=== PATIENT | female | born 1930 | race Caucasian/White ===

== ENCOUNTER → 2017-07-30 | Outpatient (CLI) | payer MEDICARE, BC ==
--- NOTE | 2017-07-30 13:03 | FL ---
EXAMINATION TYPE: FL barium swallow DATE OF EXAM: 07/30/2017 CLINICAL HISTORY: Dysphagia TECHNIQUE: A double contrast esophagram is performed utilizing air and barium. A total of 1.1 minut es of fluoroscopy time utilized with 77 images saved. COMPARISON: None FINDINGS: The esophagus shows normal motility and emptying into the stomach on the upright images and slightly delayed propulsion on supine imaging with tertiary contractions. Focal outpouching is noted at the level of approximately C5-C6 relating to a Zenker's diverticulum. Multilevel anterior osteoph ytes impress upon the posterior esophagus most pronounced at C5-C6 and C6-C7. No evidence of hiatal h ernia or stricture noted. No significant gastroesophageal reflux was seen during real time performanc e of this study. IMPRESSION: 1. Findings of a small Zenker's diverticulum. 2. Multilevel anterior osteophytes most pronounced at C5-C6 and C6-C7 mildly impressing upon the post erior esophagus. 3. Findings suggestive of presbyesophagus.
== END | disposition home or self-care (01) ==
LOC: RADFLWHC 10:40
PROVIDERS: ATTEND Family Medicine
DX: R13.12 Dysphagia, oropharyngeal phase (principal)
CPT/HCPCS: 74220

== ENCOUNTER 2018-06-18 10:22 | Emergency (ER) | payer MEDICARE, BC ==
[2018-06-18] MEDS ORDERED: HYDROcodone/APAP 5-325MG 1 EACH TAB PO STA (10:51)
[2018-06-18] MEDS ORDERED: ORPHENADRINE 30 MG/ML 2 ML VIAL IM STA (10:51)
--- NOTE | 2018-06-18 11:01 | ED ---
Extremity Problem HPI - General Chief complaint: Extremity Problem,Nontraumatic Stated complaint: Leg pain Time Seen by Provider: 06/18/18 10:31 Source: patient, RN notes reviewed, old records reviewed Mode of arrival: wheelchair Limitations: no limitations - History of Present Illness Initial comments: Patient is a pleasant 87-year-old female presents emergency Department stay with chief complaint of right-sided hip and buttock muscle pain. She reports it 's been progressive over the past 2 months. She did have an MRI from her orthopedic Dr. Archer. She states that they told her that her muscle was deteriorated. She believes is likely related to her medications, atorvastatin labetalol. Warts that she was having increased pain and having a difficult time sleeping. She denies any urinary symptoms. She denies any falls or trauma to the area. - Related Data Home Medications Medication Instructions Recorded Confirmed Cholecalciferol [Vitamin D3] 2,000 unit PO DAILY 09/24/15 06/18/18 Linagliptin [Tradjenta] 5 mg PO DAILY 06/18/18 06/18/18 Ranitidine HCl [Zantac] 150 mg PO BID 06/18/18 06/18/18 Rivaroxaban [Xarelto] 15 mg PO DAILY 06/18/18 06/18/18 Simvastatin [Zocor] 20 mg PO HS 06/18/18 06/18/18 amLODIPine [Norvasc] 5 mg PO DAILY 06/18/18 06/18/18 Previous Rx's Medication Instructions Recorded Labetalol [Trandate] 100 mg PO BID #60 tablet 05/27/16 Lisinopril [Zestril] 5 mg PO DAILY tab 05/27/16 Acetaminophen-Codeine 300-30mg 1 tab PO Q6H PRN 3 Days #12 tablet 06/18/18 [Tylenol w/codeine #3] Ibuprofen 400 mg PO TID #15 tablet 06/18/18 Allergies Allergy/AdvReac Type Severity Reaction Status Date / Time No Known Allergies Allergy Verified 06/18/18 11:11 Review of Systems ROS Statement: Those systems with pertinent positive or pertinent negative responses have been documented in the HPI. ROS Other: All systems not noted in ROS Statement are negative. Past Medical History Past Medical History: Coronary Artery Disease (CAD), Diabetes Mellitus, Hyperlipidemia, Hypertension, Myocardial Infarction ([place]) Additional Past Medical History / Comment(s): BROKEN LEFT ANKLE Last Myocardial Infarction Date:: 1995 History of Any Multi-Drug Resistant Organisms: None Reported Past Surgical History: Coronary Bypass/CABG Additional Past Surgical History / Comment(s): CABG 1995, carotid stenosis and surgery in February 2016 Past Anesthesia/Blood Transfusion Reactions: No Reported Reaction Past Psychological History: No Psychological Hx Reported Smoking Status: Former smoker Past Alcohol Use History: None Reported Past Drug Use History: None Reported - Past Family History Son(s) Family Medical History: Cancer Additional Family Medical History / Comment(s): Throat cancer General Exam - General Exam Comments Initial Comments: This is a pleasant 87-year-old female. No significant distress. Limitations: no limitations General appearance: alert, in no apparent distress Head exam: Present: atraumatic, normocephalic, normal inspection Eye exam: Present: normal appearance, PERRL, EOMI. Absent: scleral icterus, conjunctival injection, periorbital swelling ENT exam: Present: normal exam, mucous membranes moist Neck exam: Present: normal inspection. Absent: tenderness, meningismus, lymphadenopathy Respiratory exam: Present: normal lung sounds bilaterally. Absent: respiratory distress, wheezes, rales, rhonchi, stridor Cardiovascular Exam: Present: regular rate, normal rhythm, normal heart sounds. Absent: systolic murmur, diastolic murmur, rubs, gallop, clicks GI/Abdominal exam: Present: soft, normal bowel sounds. Absent: distended, tenderness, guarding, rebound, rigid Extremities exam: Present: normal inspection, full ROM, normal capillary refill. Absent: tenderness, pedal edema, joint swelling, calf tenderness Right Hip exam: Present: normal inspection, full ROM, tenderness (Her right gluteus faiza.). Absent: swelling, abrasion, erythema, external rotation, internal rotation Upper Leg exam: Present: normal inspection, full ROM (Ramos has tenderness over the gluteus faiza.) Knee exam: Present: normal inspection, full ROM Lower Leg exam: Present: normal inspection, full ROM Gait: observed and normal Back exam: Present: normal inspection, full ROM Neurological exam: Present: alert, oriented X3, CN II-XII intact Psychiatric exam: Present: normal affect, normal mood Course Vital Signs 06/18/18 10:28 Temperature 98.4 F Pulse Rate 84 Respiratory 20 Rate Blood Pressure 143/62 O2 Sat by Pulse 99 Oximetry Medical Decision Making - Medical Decision Making This is an 87-year-old female presents emergency Department chief complaint of increased pain over her right hip and buttocks. Is a full range of motion of her extremities. Patient's pain is exacerbated with palpation over the gluteus faiza. She denies any peripheral paresthesias salient aesthesias. Patient's main complaint is having difficult time with the pain due to sleeping. She does not take any pain medications at this time. We did complete an x-ray today which is bilateral hip posterior arthritis. I will give the Patient a course of a temperature medication and short course of pain medication. I did discuss she should have some follow-up with her surveillance specialist. Patient agrees treatment plan will comply. Return parameters were discussed. - Radiology Data Radiology results: report reviewed Bilateral hip posterior arthritis. No acute osseous [place] noted. Disposition Clinical Impression: Strain of right hip, Muscle ache Disposition: HOME SELF-CARE Condition: Good Instructions: Hip Sprain (ED) Additional Instructions: Patient advised to follow-up with primary care physician and surveillance specialist. Take a temperature medication and to give the medicine as needed at night for sleep. Patient should return to the emergency department if any alarming signs or symptoms occur. Prescriptions: Acetaminophen-Codeine 300-30mg [Tylenol w/codeine #3] 1 tab PO Q6H PRN 3 Days # 12 tablet PRN Reason: Pain Ibuprofen 400 mg PO TID #15 tablet Is patient prescribed a controlled substance at d/c from ED?: Yes If prescribed controlled substance>3 days was MAPS reviewed?: Prescribed <3 Days Referrals: Jason Ross DO [Primary Care Provider] - 1-2 days Time of Disposition: 11:48
--- NOTE | 2018-06-18 11:31 | XR ---
EXAMINATION TYPE: AP view pelvis and 2 views right hip DATE OF EXAM: 06/18/2018 COMPARISON: NONE HISTORY: 87 year-old female right leg pain for 2 days FINDINGS: Vascular calcifications. Mild degenerative joint space narrowing and marginal spurring at both hips. Osteopenia. No acute fracture, subluxation, or dislocation. IMPRESSION: Mild bilateral hip OA. No acute osseous abnormality seen.
[2018-06-18 12:18] VITALS: BP 156/70; PULSE 85; RESP 18; TEMP 97.6
== END 2018-06-18 12:18 | disposition home or self-care (01) ==
LOC: EC 10:22
DX: S76.011A Strain of muscle, fascia and tendon of right hip, initial encounter (principal); M16.0 Bilateral primary osteoarthritis of hip; M79.606 Pain in leg, unspecified; I25.10 Atherosclerotic heart disease of native coronary artery without angina pectoris; I25.2 Old myocardial infarction; E78.5 Hyperlipidemia, unspecified; E11.9 Type 2 diabetes mellitus without complications; I10 Essential (primary) hypertension; Z87.891 Personal history of nicotine dependence; Z79.01 Long term (current) use of anticoagulants; Z79.899 Other long term (current) drug therapy; Z98.61 Coronary angioplasty status
CPT/HCPCS: 73502; 99284; 96372; J2360

== ENCOUNTER 2018-06-24 10:52 | Inpatient (IN) | payer MEDICARE, BC ==
--- NOTE | 2018-06-24 11:00 | ED ---
GI Bleed HPI - General Chief complaint: GI Bleed Stated complaint: rectal bleeding, weakness Time Seen by Provider: 06/24/18 10:58 Source: patient, RN notes reviewed, old records reviewed Mode of arrival: wheelchair Limitations: no limitations - History of Present Illness Initial comments: This is an 87 female to the ED co blood in her stool, GIB, bloody streaks in her stool. Patient does admit to using. Accident. She feels weak lightheaded dizzy but no episodes of syncope. She does admit to blood in her stool. Not gross blood but blood mixed with stool. She has no prior history of colonoscopy , no prior history of GI bleed MD complaint: blood on toilet paper, blood streaked stool -: days(s) (1) Radiation: none Severity scale (1-10): 3 Improves with: bowel movement Worsens with: none Context: history of GI bleed, blood thinners Associated Symptoms: weakness Treatments Prior to Arrival: none - Related Data Home Medications Medication Instructions Recorded Confirmed Cholecalciferol [Vitamin D3] 2,000 unit PO DAILY 09/24/15 06/24/18 Linagliptin [Tradjenta] 5 mg PO DAILY 06/18/18 06/24/18 Ranitidine HCl [Zantac] 150 mg PO BID 06/18/18 06/24/18 Rivaroxaban [Xarelto] 15 mg PO DAILY 06/18/18 06/24/18 Simvastatin [Zocor] 20 mg PO HS 06/18/18 06/24/18 amLODIPine [Norvasc] 5 mg PO DAILY 06/18/18 06/24/18 traMADol HCL [Ultram] 50 mg PO Q6HR PRN 06/24/18 06/24/18 Previous Rx's Medication Instructions Recorded Labetalol [Trandate] 100 mg PO BID #60 tablet 05/27/16 Lisinopril [Zestril] 5 mg PO DAILY tab 05/27/16 Acetaminophen-Codeine 300-30mg 1 tab PO Q6H PRN 3 Days #12 tablet 06/18/18 [Tylenol w/codeine #3] Ibuprofen 400 mg PO TID #15 tablet 06/18/18 Allergies Allergy/AdvReac Type Severity Reaction Status Date / Time zolpidem [From Ambien] AdvReac Hallucinati Verified 06/24/18 12:38 ons Review of Systems ROS Statement: Those systems with pertinent positive or pertinent negative responses have been documented in the HPI. ROS Other: All systems not noted in ROS Statement are negative. Past Medical History Past Medical History: Coronary Artery Disease (CAD), Diabetes Mellitus, Hyperlipidemia, Hypertension, Myocardial Infarction ([place]) Additional Past Medical History / Comment(s): BROKEN LEFT ANKLE Last Myocardial Infarction Date:: 1995 History of Any Multi-Drug Resistant Organisms: None Reported Past Surgical History: Coronary Bypass/CABG Additional Past Surgical History / Comment(s): CABG 1995, carotid stenosis and surgery in February 2016 Past Anesthesia/Blood Transfusion Reactions: No Reported Reaction Past Psychological History: No Psychological Hx Reported Smoking Status: Former smoker Past Alcohol Use History: None Reported Past Drug Use History: None Reported - Past Family History Son(s) Family Medical History: Cancer Additional Family Medical History / Comment(s): Throat cancer General Exam Limitations: no limitations General appearance: alert, in no apparent distress Head exam: Present: atraumatic, normocephalic, normal inspection Eye exam: Present: normal appearance, PERRL, EOMI. Absent: scleral icterus, conjunctival injection, periorbital swelling ENT exam: Present: normal exam, mucous membranes moist Neck exam: Present: normal inspection. Absent: tenderness, meningismus, lymphadenopathy Respiratory exam: Present: normal lung sounds bilaterally. Absent: respiratory distress, wheezes, rales, rhonchi, stridor Cardiovascular Exam: Present: regular rate, normal rhythm, normal heart sounds. Absent: systolic murmur, diastolic murmur, rubs, gallop, clicks GI/Abdominal exam: Present: soft, normal bowel sounds. Absent: distended, tenderness, guarding, rebound, rigid Extremities exam: Present: normal inspection, full ROM, normal capillary refill. Absent: tenderness, pedal edema, joint swelling, calf tenderness Back exam: Present: normal inspection Neurological exam: Present: alert, oriented X3, CN II-XII intact Psychiatric exam: Present: normal affect, normal mood Skin exam: Present: warm, dry, intact, normal color. Absent: rash Course Vital Signs 06/24/18 06/24/18 06/24/18 10:54 12:45 13:17 Temperature 98.5 F Pulse Rate 71 65 67 Respiratory 18 18 18 Rate Blood Pressure 107/41 167/73 187/72 O2 Sat by Pulse 99 96 97 Oximetry - Reevaluation(s) Reevaluation #1: 06/24/18 13:23 patient is without bloody stool in the ED at this point patient is on xarelto, will not reverse xarelto at this point at there is noremal vital signs and no active current bloody bowel movements. Reevaluation #2: 06/24/18 13:26 patient is without pain of weakness, no feelings of near syncope Medical Decision Making - Medical Decision Making 87 female to the ED co weaknesss, active GIB on anticoagulation. - Lab Data Result diagrams: 06/24/18 11:11 06/24/18 11:11 Lab Results 06/24/18 06/24/18 06/24/18 Range/Units 11:11 11:11 11:11 WBC 7.6 (3.8-10.6) k/uL RBC 3.29 L (3.80-5.40) m/uL Hgb 8.9 L (11.4-16.0) gm/dL Hct 28.8 L (34.0-46.0) % MCV 87.4 (80.0-100.0) fL MCH 27.1 (25.0-35.0) pg MCHC 31.0 (31.0-37.0) g/dL RDW 15.9 H (11.5-15.5) % Plt Count 266 (150-450) k/uL Neutrophils % 81 % Lymphocytes % 9 % Monocytes % 5 % Eosinophils % 3 % Basophils % 1 % Neutrophils # 6.2 (1.3-7.7) k/uL Lymphocytes # 0.7 L (1.0-4.8) k/uL Monocytes # 0.4 (0-1.0) k/uL Eosinophils # 0.2 (0-0.7) k/uL Basophils # 0.0 (0-0.2) k/uL Hypochromasia Moderate PT (9.0-12.0) sec INR (<1.2) APTT (22.0-30.0) sec Sodium 138 (137-145) mmol/L Potassium 5.4 H (3.5-5.1) mmol/L Chloride 105 (98-107) mmol/L Carbon Dioxide 23 (22-30) mmol/L Anion Gap 10 mmol/L BUN 43 H (7-17) mg/dL Creatinine 1.59 H (0.52-1.04) mg/dL Est GFR (CKD-EPI)AfAm 34 (>60 ml/min/1.73 sqM) Est GFR (CKD-EPI)NonAf 29 (>60 ml/min/1.73 sqM) Glucose 160 H (74-99) mg/dL Calcium 8.8 (8.4-10.2) mg/dL Magnesium 2.2 (1.6-2.3) mg/dL Total Bilirubin 0.6 (0.2-1.3) mg/dL AST 21 (14-36) U/L ALT 20 (9-52) U/L Alkaline Phosphatase 27 L (38-126) U/L Total Creatine Kinase 71 (30-135) U/L CK-MB (CK-2) 1.0 (0.0-2.4) ng/mL CK-MB (CK-2) Rel Index 1.4 Troponin I <0.012 (0.000-0.034) ng/mL Total Protein 5.8 L (6.3-8.2) g/dL Albumin 3.4 L (3.5-5.0) g/dL 06/24/18 Range/Units 11:11 WBC (3.8-10.6) k/uL RBC (3.80-5.40) m/uL Hgb (11.4-16.0) gm/dL Hct (34.0-46.0) % MCV (80.0-100.0) fL MCH (25.0-35.0) pg MCHC (31.0-37.0) g/dL RDW (11.5-15.5) % Plt Count (150-450) k/uL Neutrophils % % Lymphocytes % % Monocytes % % Eosinophils % % Basophils % % Neutrophils # (1.3-7.7) k/uL Lymphocytes # (1.0-4.8) k/uL Monocytes # (0-1.0) k/uL Eosinophils # (0-0.7) k/uL Basophils # (0-0.2) k/uL Hypochromasia PT 12.8 H (9.0-12.0) sec INR 1.4 H (<1.2) APTT 27.1 (22.0-30.0) sec Sodium (137-145) mmol/L Potassium (3.5-5.1) mmol/L Chloride (98-107) mmol/L Carbon Dioxide (22-30) mmol/L Anion Gap mmol/L BUN (7-17) mg/dL Creatinine (0.52-1.04) mg/dL Est GFR (CKD-EPI)AfAm (>60 ml/min/1.73 sqM) Est GFR (CKD-EPI)NonAf (>60 ml/min/1.73 sqM) Glucose (74-99) mg/dL Calcium (8.4-10.2) mg/dL Magnesium (1.6-2.3) mg/dL Total Bilirubin (0.2-1.3) mg/dL AST (14-36) U/L ALT (9-52) U/L Alkaline Phosphatase (38-126) U/L Total Creatine Kinase (30-135) U/L CK-MB (CK-2) (0.0-2.4) ng/mL CK-MB (CK-2) Rel Index Troponin I (0.000-0.034) ng/mL Total Protein (6.3-8.2) g/dL Albumin (3.5-5.0) g/dL - EKG Data -: EKG Interpreted by Me (EKG shows normal sinus rhythm rate of 69, CO 160, QRS 90, QTc 424) EKG shows normal: sinus rhythm Rate: normal Critical Care Time Critical Care Time: Yes Total Critical Care Time: 31 Disposition Clinical Impression: Gastrointestinal hemorrhage, Coagulopathy, Anemia Disposition: ADMITTED IP TO THIS [facility] Condition: Fair Instructions: Gastrointestinal Bleeding (ED) Is patient prescribed a controlled substance at d/c from ED?: No Referrals: Jason Ross DO [Primary Care Provider] - 1-2 days
[2018-06-24] MEDS ORDERED: SODIUM CHLORIDE 0.9% 500 ML IV STA (12:00)
[2018-06-24] MEDS ORDERED: PANTOPRAZOLE 40 MG/10 ML VIAL IVP STA (12:00)
[2018-06-24] MEDS ORDERED: SODIUM CHLORIDE 0.9% 1,000 ML IV STA (12:00)
[2018-06-24 12:45] LABS: Basophils % (A) 1 %; Eosinophils # (A) 0.2 k/uL (0-0.7); Eosinophils % (A) 3 %; HCT 28.8 % (34.0-46.0); HGB 8.9 gm/dL (11.4-16.0); Hypochromasia Moderate; Lymphocytes # (A) 0.7 k/uL (1.0-4.8); Lymphocytes % (A) 9 %; MCH 27.1 pg (25.0-35.0); MCV 87.4 fL (80.0-100.0); Mean Platelet Volume 7.8; Monocytes # (A) 0.4 k/uL (0-1.0); Monocytes % (A) 5 %; Neutrophils # (A) 6.2 k/uL (1.3-7.7); Neutrophils % (A) 81 %; Platelet Count 266 k/uL (150-450); RBC 3.29 m/uL (3.80-5.40); RDW 15.9 % (11.5-15.5); WBC 7.6 k/uL (3.8-10.6)
[2018-06-24 12:48] LABS: Albumin 3.4 g/dL (3.5-5.0); Calcium 8.8 mg/dL (8.4-10.2); Magnesium 2.2 mg/dL (1.6-2.3); Potassium 5.4 mmol/L (3.5-5.1); Total Bilirubin 0.6 mg/dL (0.2-1.3); Total Protein 5.8 g/dL (6.3-8.2)
[2018-06-24 12:50] LABS: INR 1.4 (<1.2); Partial Thromboplastin Time 27.1 sec (22.0-30.0); Prothrombin Time 12.8 sec (9.0-12.0)
[2018-06-24 13:00] LABS: Creatine Kinase 71 U/L (30-135)
[2018-06-24 13:12] LABS: Troponin I <0.012 ng/mL (0.000-0.034)
[2018-06-24] MEDS ORDERED: traMADol 50 MG TAB PO PRN (16:52)
[2018-06-24] MEDS ORDERED: Acetaminophen-Codeine 300-30mg TAB PO PRN (16:52)
[2018-06-24] MEDS: amLODIPine 5 MG TAB PO SCH (18:00)
[2018-06-24] MEDS: LISINOPRIL 5 MG TAB PO SCH (18:00)
[2018-06-24] MEDS: LABETALOL 100 MG TAB PO SCH (21:10)
[2018-06-24] MEDS: ATORVASTATIN 10 MG TAB PO SCH (21:10)
--- NOTE | 2018-06-24 22:27 | HP ---
HISTORY AND PHYSICAL DATE OF ADMISSION: 06/24/2018 DATE OF SERVICE: 06/24/2018 PRESENTING COMPLAINT: Lower GI bleed. HISTORY OF PRESENTING COMPLAINT: This is a very pleasant 87-year-old patient who follows with Dr. Ross. Patient's pump attendant is Dr. Colin. Chronic stable medical conditions include hypertension, hyperlipidemia, diabetes, coronary artery disease with bypass. In 2016 patient did undergo right carotid endarterectomy by Dr. Fagan and did have postoperative atrial fibrillation, for which patient apparently has been on Xarelto for the same. Three days ago patient was feeling severely constipated, had not had a bowel movement for 2 days, had to bend over and had to put pressure to have a bowel movement. Subsequently patient had a large bleeding episode. Since then she had 2 more episodes the next night, and this morning had quite a bit of blood in the mace. She did feel dizzy, lightheaded, and her daughter decided to bring the patient in. No abdominal pain. Initially patient had some pain in the rectal area, she thinks, but not anymore. Patient continues to take Xarelto, which has been held today. The patient does feel a bit tired. Normally she does not have any history of hemorrhoids. REVIEW OF SYSTEMS: CONSTITUTIONAL: Tired. HEENT: None. RESPIRATORY: None. CARDIOVASCULAR: None. GASTROINTESTINAL: As above. GENITOURINARY: None. MUSCULOSKELETAL: None. DERMATOLOGICAL: None. HEMATOLOGICAL: None. LYMPHATICS: None. PSYCHIATRY: None. NEUROLOGICAL: None. PAST MEDICAL HISTORY: 1. Coronary artery disease with bypass. 2. Diabetes, type 2. 3. Hyperlipidemia. 4. Hypertension. 5. Bilateral cataracts. PAST SURGICAL HISTORY: 1. Adenoidectomy. 2. Coronary artery bypass. 3. Tonsillectomy. 4. Three-vessel bypass in . 5. Right carotid endarterectomy. 6. ORIF of the left ankle due to fracture. SOCIAL HISTORY: Lives by herself. Smoked for 66 years; stopped in 2015. No excessive alcohol intake. FAMILY HISTORY: Throat cancer. HOME MEDICATIONS: 1. Ultram 50 mg q.6 p.r.n. 2. Norvasc 5 mg p.o. daily. 3. Zocor 20 mg at bedtime. 4. Xarelto 50 mg p.o. daily. 5. Zantac 150 mg p.o. b.i.d. 6. Zestril 5 mg p.o. daily. 7. Tradjenta 5 mg p.o. daily. 8. Labetalol 100 mg b.i.d. 9. Ibuprofen 400 mg t.i.d. 10.Vitamin D3 2000 units p.o. daily. 11.Tylenol No. 3 one tablet p.o. q.6 p.r.n. ALLERGIES: AMBIEN. PHYSICAL EXAMINATION: VITAL SIGNS ON PRESENTATION: Temperature 98.5, pulse 71, respiration 18, blood pressure 107/41, pulse ox 99% on room air. GENERAL APPEARANCE: Average build. Lying in bed, tired-appearing. EYES: Pupils equal. Conjunctivae pale. HEENT: External appearance of nose and ears normal. Oral cavity normal. NECK: JVD not raised. Mass not palpable. RESPIRATORY: Effort normal. Lungs are clear. CARDIOVASCULAR: First and second sounds normal. No edema. ABDOMEN: Soft, non-tender. Liver and spleen not palpable. LYMPHATIC: No lymph node palpable in neck or axillae. PSYCHIATRY: Alert and oriented x3. Mood and affect normal. NEUROLOGICAL: Pupils equal. Cranial nerves grossly intact. Power and sensation grossly intact. INVESTIGATIONS: White count 7.6, hemoglobin 8.9, potassium 5.4, BUN 43, creatinine 1.59. Patient's creatinine was 0.99 back on 05/26/2016. ASSESSMENT: 1. Acute lower gastrointestinal bleed. Fresh blood noted in a patient who has tried to bear down following constipation. This well could be hemorrhoidal bleeding. At the same time, patient is on Motrin 400 mg 3 times a day, including Xarelto, and patient well may have had a large upper GI bleed combined with the fact that patient got dizzy and lightheaded. 2. Essential hypertension. 3. Hyperlipidemia. 4. Diabetes mellitus, type 2, on oral hypoglycemic. 5. Coronary artery disease with history of coronary artery bypass. 6. Paroxysmal atrial fibrillation, currently in sinus rhythm. PLAN: Xarelto has been held. Patient has had no more episodes of bleeding. GI was consulted with a view to endoscopy. Care was discussed with the patient and her daughter at the bedside. Keep an eye on hemoglobin and hematocrit. Will also get a cardiology opinion. MMODL / IJN: [id number] /
[2018-06-25 08:03] LABS: Basophils % (A) 1 %; Eosinophils # (A) 0.2 k/uL (0-0.7); Eosinophils % (A) 4 %; Hypochromasia Moderate; Lymphocytes % (A) 19 %; MCHC 30.9 g/dL (31.0-37.0); MCV 87.5 fL (80.0-100.0); Mean Platelet Volume 7.9; Monocytes # (A) 0.4 k/uL (0-1.0); Monocytes % (A) 8 %; Neutrophils # (A) 3.6 k/uL (1.3-7.7); Neutrophils % (A) 66 %; Platelet Count 248 k/uL (150-450); RBC 2.97 m/uL (3.80-5.40); WBC 5.5 k/uL (3.8-10.6)
[2018-06-25] MEDS: LABETALOL 100 MG TAB PO SCH ×2 (08:20→20:25)
[2018-06-25] MEDS: amLODIPine 5 MG TAB PO SCH (08:20)
[2018-06-25] MEDS: LISINOPRIL 5 MG TAB PO SCH (08:21)
[2018-06-25] MEDS ORDERED: LISINOPRIL 5 MG TAB PO SCH (09:00)
[2018-06-25] MEDS ORDERED: amLODIPine 5 MG TAB PO SCH (09:00)
--- NOTE | 2018-06-25 11:41 | P.CONS ---
History of Present Illness - Reason for Consult Consult date: 06/25/18 anemia GI bleed Requesting physician: Carloz Chavez - Chief Complaint rectal bleeding - History of Present Illness 87 y/o PMH PAF maintained on Xarelto. CABG, HTN, DM, CKD, hepatic steatosis, RCEA, cholecystectomy, and hyperlipidemia. Presents with reports of painless rectal bleeding maroon red colored BMs that started Friday. She has passed several stools since Friday last bloody BM was yesterday. No history of GI bleed or PUD. No history of EGD/colonoscopy. Admission HGB 8.9 presently 8.0 MCV 87. [place] 266. INR 1.4. BUN 43. Creatinine 1.5. LFTs WNL. Previous HGB in 2016 was 13.3. Last dose of Xarelto was 06/23/18. Denies F/C. Denies weight loss, hematemesis or melena. Home meds include Ibuprofen [address] abdomen 2016 did not mention colonic diverticulosis. Hepatic steatosis demonstrated. Review of Systems Constitutional: Denies fever, chills, sweats, weight gain, or loss. HEENT: Negative for migraines, blurred vision or loss, earaches, drainage, tinnitus, oral mucosal lesions, dysphagia, or odynophagia. CARDIAC: Negative for chest pain, arrhythmias, or palpitation. RESPIRATORY: Negative for shortness of breath, hemoptysis, cough, or sputum production. GI: See HPI for pertinent findings. : Negative for hematuria, urgency, frequency, polyuria, or dysuria. GYNc: Negative vaginal discharge. MUSCULOSKELETAL: Negative for muscle aches, swelling, arthritis, and arthralgias. NEUROLOGIC: Negative for stroke or TIA. ENDOCRINE: Negative for thyroid problems. SKIN: Negative for rash or itching. PSYCHIATRIC: Negative history for depression and anxiety Past Medical History Past Medical History: Coronary Artery Disease (CAD), Chest Pain / Angina, Diabetes Mellitus, Hyperlipidemia, Hypertension, Myocardial Infarction ([place]), Syncope Additional Past Medical History / Comment(s): NIDDM type II, vertigo/weakness for past 5 years and pt states she has had tests but no one knows why, weakness , gait disturbance, falls, bilateral cataracts. Last Myocardial Infarction Date:: 1995 History of Any Multi-Drug Resistant Organisms: None Reported Past Surgical History: Adenoidectomy, Coronary Bypass/CABG, Heart Catheterization, Orthopedic Surgery, Tonsillectomy Additional Past Surgical History / Comment(s): 3 vessel CABG 1995 in [place], R caratid endartectomy 2016, ORIF L ankle d/t fracture. Past Anesthesia/Blood Transfusion Reactions: No Reported Reaction Smoking Status: Former smoker - Past Family History Mother Family Medical History: No Reported History Father Family Medical History: No Reported History Son(s) Family Medical History: Cancer Additional Family Medical History / Comment(s): Throat cancer Medications and Allergies Home Medications Medication Instructions Recorded Confirmed Type Cholecalciferol [Vitamin D3] 2,000 unit PO DAILY 09/24/15 06/24/18 History Labetalol [Trandate] 100 mg PO BID #60 tablet 05/27/16 06/24/18 Rx Lisinopril [Zestril] 5 mg PO DAILY tab 05/27/16 06/24/18 Rx Acetaminophen-Codeine 300-30mg 1 tab PO Q6H PRN 3 Days #12 tablet 06/18/1806/24 Rx [Tylenol w/codeine #3] Ibuprofen 400 mg PO TID #15 tablet 06/18/18 06/24/18 Rx Linagliptin [Tradjenta] 5 mg PO DAILY 06/18/18 06/24/18 History Ranitidine HCl [Zantac] 150 mg PO BID 06/18/18 06/24/18 History Rivaroxaban [Xarelto] 15 mg PO DAILY 06/18/18 06/24/18 History Simvastatin [Zocor] 20 mg PO HS 06/18/18 06/24/18 History amLODIPine [Norvasc] 5 mg PO DAILY 06/18/18 06/24/18 History traMADol HCL [Ultram] 50 mg PO Q6HR PRN 06/24/18 06/24/18 History Allergies Allergy/AdvReac Type Severity Reaction Status Date / Time zolpidem [From Ambien] AdvReac Hallucinati Verified 06/24/18 12:38 ons Physical Exam Vitals: Vital Signs Temp Pulse Pulse Resp BP BP Pulse Ox 06/25/18 05:00 98 F 66 18 123/57 98 06/25/18 00:00 76 16 06/24/18 22:26 97.4 F L 76 16 157/57 95 06/24/18 14:48 97.3 F L 74 18 193/80 97 06/24/18 13:55 81 18 175/78 96 06/24/18 13:17 67 18 187/72 97 06/24/18 12:45 65 18 167/73 96 Intake and Output 06/24/18 06/25/18 06/25/18 22:59 06:59 14:59 Intake Total 420 420 Output Total 1 1 Balance 419 419 Intake: Oral 420 420 Output: Urine 1 1 Other: Weight 65.771 kg - Constitutional General appearance: average body habitus - EENT Eyes: normal appearance Ears: bilateral: normal - Neck Neck: normal ROM - Respiratory Respiratory: bilateral: CTA - Cardiovascular Heart sounds: normal: S1, S2 - Gastrointestinal nontender General gastrointestinal: normal bowel sounds, soft - Integumentary Integumentary: normal turgor - Neurologic Neurologic: CNII-XII intact - Psychiatric Psychiatric: A&O x's 3 Results CBC & Chem 7: 06/25/18 07:30 06/25/18 07:30 Labs: Abnormal Lab Results - Last 24 Hours (Table) 06/24/18 06/24/18 06/24/18 Range/Units 11:11 11:11 11:11 RBC 3.29 L (3.80-5.40) m/uL Hgb 8.9 L (11.4-16.0) gm/dL Hct 28.8 L (34.0-46.0) % MCHC (31.0-37.0) g/dL RDW 15.9 H (11.5-15.5) % Lymphocytes # 0.7 L (1.0-4.8) k/uL PT 12.8 H (9.0-12.0) sec INR 1.4 H (<1.2) Potassium 5.4 H (3.5-5.1) mmol/L BUN 43 H (7-17) mg/dL Creatinine 1.59 H (0.52-1.04) mg/dL Glucose 160 H (74-99) mg/dL Alkaline Phosphatase 27 L (38-126) U/L Total Protein 5.8 L (6.3-8.2) g/dL Albumin 3.4 L (3.5-5.0) g/dL 06/25/18 Range/Units 07:30 RBC 2.97 L (3.80-5.40) m/uL Hgb 8.0 L (11.4-16.0) gm/dL Hct 26.0 L (34.0-46.0) % MCHC 30.9 L (31.0-37.0) g/dL RDW 16.0 H (11.5-15.5) % Lymphocytes # (1.0-4.8) k/uL PT (9.0-12.0) sec INR (<1.2) Potassium (3.5-5.1) mmol/L BUN (7-17) mg/dL Creatinine (0.52-1.04) mg/dL Glucose (74-99) mg/dL Alkaline Phosphatase (38-126) U/L Total Protein (6.3-8.2) g/dL Albumin (3.5-5.0) g/dL Assessment and Plan (1) Acute GI bleeding Narrative/Plan: Painless hematochezia x 3 days exacerbated by NSAID and anticoagulation medications. Possible colonic diverticular bleed however differentials to consider are peptic ulcer disease possible neoplasm. Current Visit: Yes Status: Acute Code(s): K92.2 - GASTROINTESTINAL HEMORRHAGE, UNSPECIFIED SNOMED Code(s): 93959400 (2) Hematochezia Current Visit: Yes Status: Acute Code(s): K92.1 - MELENA SNOMED Code(s): 601314833 (3) Acute blood loss anemia Current Visit: Yes Status: Acute Code(s): D62 - ACUTE POSTHEMORRHAGIC ANEMIA SNOMED Code(s): 116569828 (4) Paroxysmal A-fib Current Visit: Yes Status: Acute Code(s): I48.0 - PAROXYSMAL ATRIAL FIBRILLATION SNOMED Code(s): 403686693 (5) Hepatic steatosis Current Visit: Yes Status: Acute Code(s): K76.0 - FATTY (CHANGE OF) LIVER, NOT ELSEWHERE CLASSIFIED SNOMED Code(s): 095727355 (6) Coagulopathy Current Visit: Yes Status: Acute Code(s): D68.9 - COAGULATION DEFECT, UNSPECIFIED SNOMED Code(s): 54523561 (7) 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 EGD/colonoscopy recommended will proceed tomorrow. 2. CBC monitoring. 3. Protonix 40 mg daily. 4. Clear liquids today. 5. Hold NSAIDS/Xarelto. The life agent has discussed the risks, benefits and alternative therapies for the above-mentioned procedure and for both sedation/analgesia as well as necessary blood product administration, if indicated, as they pertain to this patient. The patient has indicated understanding and acceptance of the risks and procedures discussed. Thank you for this kind referral and the opportunity to participate in the care of your patient. This consultation was discussed with Dr. Hackett. The impression and plan of care have been directed as dictated.
[2018-06-25 12:51] LABS: Calcium 8.8 mg/dL (8.4-10.2); Potassium 4.9 mmol/L (3.5-5.1)
--- NOTE | 2018-06-25 13:45 | ECHOF ---
Referral Reason:aortic stenosis MEASUREMENTS -------- HEIGHT: 160.0 cm WEIGHT: 65.8 kg BP: RVIDd: 2.6 cm (< 3.3) IVSd: 1.2 cm (0.6 - 1.1) LVIDd: 4.7 cm (3.9 - 5.3) LVPWd: 0.9 cm (0.6 - 1.1) IVSs: 1.8 cm LVIDs: 2.9 cm LVPWs: 1.5 cm Ao Diam: 2.7 cm (2.0 - 3.7) AV Cusp: 1.1 cm (1.5 - 2.6) LA Diam: 4.0 cm (2.7 - 3.8) MV EXCURSION: 11.540 mm (> 18.000) MV EF SLOPE: 68 mm/s (70 - 150) EPSS: 0.7 cm MV E Kar: 0.96 m/s MV DecT: 156 ms MV A Kar: 0.91 m/s MV E/A Ratio: 1.06 AV maxP.47 mmHg AV meanP.57 mmHg RAP: 5.00 mmHg RVSP: 12.95 mmHg FINDINGS -------- Sinus rhythm. This was a technically adequate study. The left ventricular size is normal. There is mild concentric left ventricular hypertrophy. Overa ll left ventricular systolic function is normal with, an EF between 55 - 60 %. The right ventricle is normal in size. The left atrium is mildly dilated. The right atrium is normal in size. There is mild aortic valve sclerosis. There is mild aortic stenosis present. Peak/mean gradient a cross the Aortic Valve is 19.47mmHg / 9.57mmHg. Mild mitral annular calcification present. Mild mitral regurgitation is present. Mild tricuspid regurgitation present. There is no evidence of pulmonary hypertension. The right v entricular systolic pressure, as measured by Doppler, is 12.95mmHg. There is no pulmonic regurgitation present. The aortic root size is normal. There is no pericardial effusion. CONCLUSIONS -------- 1. Sinus rhythm. 2. This was a technically adequate study. 3. The left ventricular size is normal. 4. There is mild concentric left ventricular hypertrophy. 5. Overall left ventricular systolic function is normal with, an EF between 55 - 60 %. 6. The left atrium is mildly dilated. 7. There is mild aortic valve sclerosis. 8. There is mild aortic stenosis present. 9. Peak/mean gradient across the Aortic Valve is 19.47mmHg / 9.57mmHg. 10. Mild mitral annular calcification present. 11. Mild mitral regurgitation is present. 12. Mild tricuspid regurgitation present. 13. There is no evidence of pulmonary hypertension. 14. There is no pulmonic regurgitation present. 15. The aortic root size is normal. 16. There is no pericardial effusion. OBSTETRICS TEACHER: Margaret Ferrer RDCS
--- NOTE | 2018-06-25 14:09 | P.CRDCN ---
History of Present Illness History of present illness: Mrs. Potter is a pleasant 87-year-old female past medical history significant for paroxysmal atrial fibrillation on intermediate anticoagulation with Xarelto, coronary artery disease s/p bypass grafting with FRIEDMAN-LAD and PLV- RCA in 1995, dyslipidemia, carotid artery disease s/p endartectomy, hypertension and diabetes mellitus. She follows with Dr. Colin in the office. We have been asked to see her in consultation for management of her anti- coagulation in the presence of acute GI bleeding. She states Friday she started noticing bright red blood in her stool. This occurred multiple times throughout Friday and Friday. She denies having any symptoms of abdominal pain, chest pain , shortness of breath, dizziness or palpitations initially. However, yesterday she started to feel increasingly weak and mildly light headed. Upon arrival to ED hgb was found to be 8.9. Most recent value from 2015 was 13.3. Repeat this morning 8.0. Platelets 248, PT 12.8, INR 1.4, sodium 138, potassium 5.4, creatinine 1.59, GFR 29, cardiac enzymes negative 1, magnesium 2.2. At the time of my exam she is seen resting comfortably in bed in no acute distress. Xarelto has been held since admission and she is awaiting GI consultation. EKG on arrival reveals sinus mechanism with no acute ST or T-wave abnormalities. Laboratory data reviewed. Current cardiac medications include Norvasc 5 mg daily, simvastatin 20 mg daily , Xarelto 15 mg daily, lisinopril 5 mg daily, labetalol 100 mg twice a day. She also takes Ultram, Zantac, tradjenta, Motrin and Tylenol with Codeine. Most recent echocardiogram obtained in 2016 reveals preserved left ventricular systolic function with ejection fraction 60-65%, mean gradient across the aortic valve 7.14 mmHg, mild concentric left ventricular hypertrophy. Review of Systems At the time of my exam: CONSTITUTIONAL: Denies fever. Denies chills. EYES: Denies blurred vision. Denies vision changes. Denies eye pain. EARS, NOSE, MOUTH & THROAT: Denies headache. Denies sore throat. Denies ear pain. CARDIOVASCULAR: Denies chest pain. Denies shortness of breath. Denies orthopnea. Denies PND. Denies palpitations. RESPIRATORY: Denies cough. GASTROINTESTINAL: Denies abdominal pain. Denies diarrhea. Denies constipation. Denies nausea. Denies vomiting. MUSCULOSKELETAL: Denies myalgias. INTEGUMENTARY: Denies pruitis. Denies rash. NEUROLOGIC: Denies numbness. Denies tingling. Denies weakness. PSYCHIATRIC: Denies anxiety. Denies depression. ENDOCRINE: Denies fatigue. Denies weight change. Denies polydipsia. Denies polyurina. GENITOURINARY: Denies burning, hematuria or urgency with micturation. HEMATOLOGIC: Denies history of anemia. Complains of bright red rectal bleeding. Past Medical History Past Medical History: Coronary Artery Disease (CAD), Chest Pain / Angina, Diabetes Mellitus, Hyperlipidemia, Hypertension, Myocardial Infarction ([place]), Syncope Additional Past Medical History / Comment(s): NIDDM type II, vertigo/weakness for past 5 years and pt states she has had tests but no one knows why, weakness , gait disturbance, falls, bilateral cataracts. Last Myocardial Infarction Date:: 1995 History of Any Multi-Drug Resistant Organisms: None Reported Past Surgical History: Adenoidectomy, Coronary Bypass/CABG, Heart Catheterization, Orthopedic Surgery, Tonsillectomy Additional Past Surgical History / Comment(s): 3 vessel CABG 1995 in [place], R caratid endartectomy 2015, ORIF L ankle d/t fracture. Past Anesthesia/Blood Transfusion Reactions: No Reported Reaction Smoking Status: Former smoker - Past Family History Mother Family Medical History: No Reported History Father Family Medical History: No Reported History Son(s) Family Medical History: Cancer Additional Family Medical History / Comment(s): Throat cancer Medications and Allergies Home Medications Medication Instructions Recorded Confirmed Type Cholecalciferol [Vitamin D3] 2,000 unit PO DAILY 09/24/15 06/24/18 History Labetalol [Trandate] 100 mg PO BID #60 tablet 05/27/16 06/24/18 Rx Lisinopril [Zestril] 5 mg PO DAILY tab 05/27/16 06/24/18 Rx Acetaminophen-Codeine 300-30mg 1 tab PO Q6H PRN 3 Days #12 tablet 06/18/1806/24 Rx [Tylenol w/codeine #3] Ibuprofen 400 mg PO TID #15 tablet 06/18/18 06/24/18 Rx Linagliptin [Tradjenta] 5 mg PO DAILY 06/18/18 06/24/18 History Ranitidine HCl [Zantac] 150 mg PO BID 06/18/18 06/24/18 History Rivaroxaban [Xarelto] 15 mg PO DAILY 06/18/18 06/24/18 History Simvastatin [Zocor] 20 mg PO HS 06/18/18 06/24/18 History amLODIPine [Norvasc] 5 mg PO DAILY 06/18/18 06/24/18 History traMADol HCL [Ultram] 50 mg PO Q6HR PRN 06/24/18 06/24/18 History Allergies Allergy/AdvReac Type Severity Reaction Status Date / Time zolpidem [From Ambien] AdvReac Hallucinati Verified 06/24/18 12:38 ons Physical Exam Vitals: Vital Signs Temp Pulse Pulse Resp BP BP Pulse Ox 06/25/18 05:00 98 F 66 18 123/57 98 06/25/18 00:00 76 16 06/24/18 22:26 97.4 F L 76 16 157/57 95 06/24/18 14:48 97.3 F L 74 18 193/80 97 06/24/18 13:55 81 18 175/78 96 06/24/18 13:17 67 18 187/72 97 06/24/18 12:45 65 18 167/73 96 06/24/18 10:54 98.5 F 71 18 107/41 99 Intake and Output 06/24/18 06/25/18 06/25/18 22:59 06:59 14:59 Intake Total 420 420 Output Total 1 1 Balance 419 419 Intake: Oral 420 420 Output: Urine 1 1 Other: Weight 65.771 kg Blood pressure 123/57 heart rate 66 afebrile maintaining oxygen saturation on room air GENERAL: This is a 87-year-old female in no apparent distress at the time of my examination. HEENT: Head is atraumatic, normocephalic. Pupils are equal, round. Sclerae anicteric. Conjunctivae are clear. Mucous membranes of the mouth are moist. Neck is supple. There is no jugular venous distention. Left carotid bruit is heard. LUNGS: Clear to auscultation no wheezes, rales or rhonchi. No chest wall tenderness is noted on palpation or with deep breathing. HEART: Regular rate and rhythm with systolic ejection murmur at the base, no rubs or gallops. S1 and S2 heard. ABDOMEN: Soft, nontender. Bowel sounds are heard. No organomegaly noted. EXTREMITIES: No evidence of peripheral edema and no calf tenderness noted. VASCULAR: Radial and dorsalis pedis pulses palpated, no evidence of clubbing. NEUROLOGIC: Patient is awake, alert and oriented x3. Results 06/25/18 07:30 06/25/18 07:30 Cardiac Enzymes 06/24/18 06/24/18 Range/Units 11:11 11:11 AST 21 (14-36) U/L CK-MB (CK-2) 1.0 (0.0-2.4) ng/mL Troponin I <0.012 (0.000-0.034) ng/mL Coagulation 06/24/18 Range/Units 11:11 PT 12.8 H (9.0-12.0) sec APTT 27.1 (22.0-30.0) sec CBC 06/24/18 06/25/18 Range/Units 11:11 07:30 WBC 7.6 5.5 (3.8-10.6) k/uL RBC 3.29 L 2.97 L (3.80-5.40) m/uL Hgb 8.9 L 8.0 L (11.4-16.0) gm/dL Hct 28.8 L 26.0 L (34.0-46.0) % Plt Count 266 248 (150-450) k/uL Comprehensive Metabolic Panel 06/24/18 Range/Units 11:11 Sodium 138 (137-145) mmol/L Potassium 5.4 H (3.5-5.1) mmol/L Chloride 105 (98-107) mmol/L Carbon Dioxide 23 (22-30) mmol/L BUN 43 H (7-17) mg/dL Creatinine 1.59 H (0.52-1.04) mg/dL Glucose 160 H (74-99) mg/dL Calcium 8.8 (8.4-10.2) mg/dL AST 21 (14-36) U/L ALT 20 (9-52) U/L Alkaline Phosphatase 27 L (38-126) U/L Total Protein 5.8 L (6.3-8.2) g/dL Albumin 3.4 L (3.5-5.0) g/dL Current Medications Generic Name Dose Route Start Last Admin Trade Name Freq PRN Reason Stop Dose Admin Acetaminophen/Codeine Phosphate 1 each 06/24/18 16:52 Tylenol #3 PO Q6H PRN Moderate Pain Amlodipine Besylate 5 mg 06/24/18 16:53 06/25/18 08:20 Norvasc PO 5 mg DAILY GENNY Administration Atorvastatin Calcium 10 mg 06/24/18 21:00 06/24/18 21:10 Lipitor PO 10 mg HS GENNY Administration Labetalol HCl 100 mg 06/24/18 21:00 06/25/18 08:20 Trandate PO 100 mg BID GENNY Administration Lisinopril 5 mg 06/24/18 17:00 06/25/18 08:21 Zestril PO 5 mg DAILY GENNY Administration Tramadol HCl 50 mg 06/24/18 16:52 Ultram PO Q6HR PRN Mild Pain Intake and Output 06/24/18 06/25/18 06/25/18 22:59 06:59 14:59 Intake Total 420 420 Output Total 1 1 Balance 419 419 Intake: Oral 420 420 Output: Urine 1 1 Other: Weight 65.771 kg 06/25/18 07:30 06/24/18 11:11 Assessment and Plan Assessment: ASSESSMENT Acute GI bleed on intermediate anticoagulation with Xarelto Acute blood loss anemia Paroxysmal atrial fibrillation, currently maintaining sinus mechanism History of coronary artery disease s/p 2-vessel bypass grafting 1995 Hypertension Dyslipidemia Diabetes mellitus Aortic stenosis Carotid artery disease s/p endartectomy Chronic kidney disease, GFR 29 PLAN Continue to hold xarelto until bleeding source determined and hgb stabilizes. Obtain 2D echocardiogram and doppler study to assess cardiac structure and function. Colonoscopy has been recommended by GI services and we have encouraged her to agree to this test. The importance of anticoagulation explained to her and the colonoscopy will clarify if there is an acute source of bleeding. She states she will think and consider undergoing the procedure. Xarelto to be resumed as soon as is acceptably per GI services recommendations. Further recommendations to follow based on clinical course. Thank you kindly for this consultation. Nurse Practitioner note has been reviewed, I agree with a documented findings and plan of care. Patient was seen and examined.
[2018-06-25] MEDS ORDERED: BISACODYL 5 MG TABLET.DR PO ONE (16:00)
[2018-06-25] MEDS ORDERED: PEG 3350-NA SULF,BICARB,CL/KCL 4,000 ML BOTTLE PO ONE (16:00)
[2018-06-25] MEDS: ATORVASTATIN 10 MG TAB PO SCH (20:25)
--- NOTE | 2018-06-25 23:37 | PN ---
PROGRESS NOTE DATE OF SERVICE: 06/25/2018 PRESENTING COMPLAINT: Lower GI bleed. INTERVAL HISTORY: This patient who is on Xarelto for a history of paroxysmal atrial fibrillation presented with lower GI bleed. This morning she was seen by GI, offered a colonoscopy, but the patient is reluctant. I did have a very lengthy talk with the patient. We talked about the pros and cons with her daughter. The patient finally agreed to proceed with the procedure. REVIEW OF SYSTEMS: Done for constitutional, cardiovascular, GI, pulmonary; relevant findings as above. Patient does feel weak and tired. CURRENT MEDICATIONS: Reviewed. They include Protonix. PHYSICAL EXAMINATION: Temperature 98.3, pulse 71, respiration 16, blood pressure 128/51, pulse ox 97% on room air. GENERAL APPEARANCE: Lying in bed. Comfortable. EYES: Pupils equal. Conjunctivae pale. HEENT: External appearance of nose and ears normal. Oral cavity normal. NECK: JVD not raised. Mass not palpable. RESPIRATORY: Effort normal. Lungs are clear. CARDIOVASCULAR: First and second sounds normal. No edema. ABDOMEN: Soft, non-tender. Liver and spleen not palpable. PSYCHIATRY: Alert and oriented x3. Mood and affect normal. INVESTIGATIONS: Hemoglobin 8, BUN 33, creatinine 1.43. Two-D echocardiogram shows EF 55% to 60%. ASSESSMENT: 1. Acute lower gastrointestinal bleed. Could be hemorrhoidal, but patient is also on Motrin and Xarelto. Need to rule out upper GI cause. 2. Essential hypertension. 3. Hyperlipidemia. 4. Diabetes mellitus, type 2, on oral hypoglycemic. 5. Coronary artery disease with history of coronary artery bypass. 6. Paroxysmal atrial fibrillation, currently in sinus rhythm, for which patient is on Xarelto. PLAN: Patient has finally consented after a long discussion to proceed with endoscopy. Repeat a CBC in the morning. The patient will be made n.p.o. after midnight. MMODL / IJN: [id number] /
[2018-06-26 07:45] LABS: Basophils % (A) 1 %; Eosinophils # (A) 0.2 k/uL (0-0.7); Eosinophils % (A) 2 %; HCT 26.8 % (34.0-46.0); HGB 8.1 gm/dL (11.4-16.0); Hypochromasia Marked; Lymphocytes # (A) 1.2 k/uL (1.0-4.8); Lymphocytes % (A) 16 %; MCH 27.3 pg (25.0-35.0); MCHC 30.2 g/dL (31.0-37.0); MCV 90.3 fL (80.0-100.0); Mean Platelet Volume 7.6; Monocytes # (A) 0.4 k/uL (0-1.0); Monocytes % (A) 6 %; Neutrophils # (A) 5.3 k/uL (1.3-7.7); Neutrophils % (A) 73 %; Platelet Count 254 k/uL (150-450); RBC 2.97 m/uL (3.80-5.40); RDW 15.8 % (11.5-15.5); WBC 7.3 k/uL (3.8-10.6)
--- NOTE | 2018-06-26 08:49 | P.PN ---
Subjective Mrs. Potter is seen and examined up walking in her room. Past medical history significant for paroxysmal atrial fibrillation on fdc anticoagulation with Xarelto, coronary artery disease s/p bypass grafting with FRIEDMAN-LAD and PLV- RCA in 1995, dyslipidemia, carotid artery disease s/p endartectomy, hypertension and diabetes mellitus. She follows with Dr. Colin in the office. We are following her secondary to GI bleeding on fdc anticoagulation. She is maintaining sinus mechanism on telemetry. She denies chest pain, shortness of breath, dizziness or palpitations. She has agreed to undergo colonoscopy today and has tolerated the prep without incident. Laboratory data reviewed, hemoglobin 8.1, platelets 254. Blood pressure this morning before medications 174/59 heart rate 86 afebrile maintaining oxygen saturation on room air. Echocardiogram obtained reveals preserved left ventricular systolic function with ejection fraction 55-60%, mild aortic valve stenosis with a mean gradient of 9.57 mmHg, mild MR and mild TR noted. Objective - Vital Signs Vital signs: Vital Signs Temp 98.1 F 06/26/18 05:00 Pulse 86 06/26/18 05:00 Resp 16 06/26/18 05:00 BP 174/59 06/26/18 05:00 Pulse Ox 98 06/26/18 05:00 Intake & Output 06/25/18 06/26/18 06/26/18 18:59 06:59 18:59 Intake Total 1999 Balance 1999 Intake: Oral 1999 Other: Voiding Method Toilet # Voids 4 3 - Exam GENERAL: Well-appearing, well-nourished and in no acute distress. NECK: Supple without JVD or thyromegaly. LUNGS: Breath sounds clear to auscultation bilaterally. Respiration equal and unlabored. No wheezes, rales or rhonchi. HEART: Regular rate and rhythm with systolic ejection murmur at the base, no rubs or gallops. S1 and S2 heard. EXTREMITIES: Normal range of motion, no edema. No clubbing or cyanosis. Peripheral pulses intact. - Labs CBC & Chem 7: 06/26/18 07:20 06/25/18 07:30 Labs: Abnormal Lab Results - Last 24 Hours (Table) 06/25/18 06/25/18 06/25/18 Range/Units 07:30 07:30 15:15 RBC (3.80-5.40) m/uL Hgb (11.4-16.0) gm/dL Hct (34.0-46.0) % MCHC (31.0-37.0) g/dL RDW (11.5-15.5) % Chloride 108 H (98-107) mmol/L BUN 33 H (7-17) mg/dL Creatinine 1.43 H (0.52-1.04) mg/dL Glucose 104 H (74-99) mg/dL Hemoglobin A1c 7.0 H (4.0-6.0) % Stool Occult Blood Positive H (Negative) 06/26/18 Range/Units 07:20 RBC 2.97 L (3.80-5.40) m/uL Hgb 8.1 L (11.4-16.0) gm/dL Hct 26.8 L (34.0-46.0) % MCHC 30.2 L (31.0-37.0) g/dL RDW 15.8 H (11.5-15.5) % Chloride (98-107) mmol/L BUN (7-17) mg/dL Creatinine (0.52-1.04) mg/dL Glucose (74-99) mg/dL Hemoglobin A1c (4.0-6.0) % Stool Occult Blood (Negative) Assessment and Plan Assessment: ASSESSMENT Acute GI bleed on rn long term care anticoagulation with Xarelto Acute blood loss anemia Paroxysmal atrial fibrillation, currently maintaining sinus mechanism History of coronary artery disease s/p 2-vessel bypass grafting 1995 Hypertension Dyslipidemia Diabetes mellitus Aortic stenosis, mean 9 mmHg Carotid artery disease s/p endartectomy Chronic kidney disease, GFR 29 PLAN Continue to hold xarelto until bleeding source determined and hgb stabilizes. Xarelto to be resumed as soon as is acceptably per GI services recommendations. Continue to monitor blood pressure. Nurse Practitioner note has been reviewed, I agree with a documented findings and plan of care. Patient was seen and examined.
[2018-06-26] MEDS ORDERED: PANTOPRAZOLE 40 MG/10 ML VIAL IVP SCH (09:00)
[2018-06-26] MEDS: LABETALOL 100 MG TAB PO SCH (09:17)
[2018-06-26] MEDS: LISINOPRIL 5 MG TAB PO SCH (09:17)
[2018-06-26] MEDS: amLODIPine 5 MG TAB PO SCH (09:17)
[2018-06-26 12:00] VITALS: BMI 25.7
[2018-06-26 12:02] LABS: Glucose,Whole Blood 118 mg/dL (75-99)
[2018-06-26 12:40] VITALS: BP 145/47; PULSE 76; RESP 14; TEMP 97.2
[2018-06-26] MEDS ORDERED: PROPOFOL 10 MG/ML 20 ML VIAL IV ONE (13:51)
[2018-06-26] MEDS ORDERED: LIDOCAINE 1% INJ 10MG/ML (20 ML MDV) ONE (13:51)
[2018-06-26] MEDS ORDERED: LACTATED RINGERS 1,000 ML IV ONE (13:51)
--- NOTE | 2018-06-26 15:12 | P.PCN ---
Date of Procedure: 06/26/18 Description of Procedure: Brief history: Patient is a pleasant 87-year-old female with no prior endoscopic history who presents to the hospital with symptoms of hematochezia and was found to be anemic. The patient reports painless bright red blood per rectum. This is her first such episode. The bleeding has subsequently stopped and the patient is being taken for endoscopic evaluation. Procedure performed: Esophagogastroduodenoscopy with cold biopsy Colonoscopy with argon plasma coagulation treatment of AVM Estimated blood loss: Minimal. Preoperative diagnosis: Anesthesia: MAC Procedure: After informed consent was obtained from the patient was brought into the endoscopy unit and IV sedation was administered by anesthesia under continuous monitoring. Initially upper endoscopy was done. The Olympus GF 190 video endoscope was inserted inserted into the mouth and esophagus intubated without any difficulty and was gradually advanced into the stomach and duodenum and carefully examined. The bulb and second part of the duodenum appeared mildly irritated with scattered erythema noted suggestive of duodenitis, biopsied. The scope was then withdrawn into the stomach adequately insufflated with air and upon careful examination the antrum and body, cardia and fundus appeared grossly normal. Mild scattered erythema in the antrum and body suggestive of gastritis were noted and biopsied The scope was then withdrawn into the esophagus. The GE junction was located at 35 cm to the incisors. The patient had a widely patent Schatzki ring at the GE junction. It appeared regular with no erythema erosions or ulcerations. Rest of the esophagus appeared normal. Patient tolerated the procedure well. At this time the patient continued to remain sedation. Initial digital rectal examination was normal. Olympus CF 190 video colonoscope was then inserted into the rectum and gradually advanced to the cecum without any difficulty. In the cecum a large AVM was noted and treated with argon plasma coagulation. Given the findings of hemolyzed blood throughout the colon is likely that this AVM was to source of the patient's symptoms. Careful examination was performed as the scope was gradually being withdrawn. The prep was excellent. The cecum , ascending colon, transverse colon, descending colon, sigmoid colon and rectum appeared normal. Large and small diverticula were noted in the sigmoid and descending colon. Retroflexion was performed in the rectum and no lesions were noted and mild internal hemorrhoids were seen. Patient tolerated the procedure well. Impression: 1. Widely patent Schatzki ring, gastritis biopsied, duodenitis biopsied. 2. 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 Recommendations: Findings of this examination were discussed with the patient. Continue to monitor H&H and transfuse as needed. Okay for full liquid diet and advance as tolerated. Continue PPI therapy. Follow up with gastroenterology in the outpatient setting.
[2018-06-26 16:43] LABS: Glucose,Whole Blood 123 mg/dL (75-99)
[2018-06-26 16:50] LABS: Iron Saturation 3.76 (12.00-45.00)
--- NOTE | 2018-06-27 08:33 | DS ---
DISCHARGE SUMMARY DATE OF ADMISSION: 06/24/2018. DATE OF DISCHARGE: 06/26/2018. FINAL DIAGNOSES: 1. 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 2. Essential hypertension. 3. Hyperlipidemia. 4. Diabetes Mellitus type 2, on oral hypoglycemics. 5. Coronary artery disease with prior history of coronary bypass. 6. Paroxysmal atrial fibrillation currently in sinus rhythm for which patient has Xarelto. HOSPITAL COURSE: This patient who was a bit constipated, presented with lower GI bleed, fresh blood. The patient was taken to have an EGD/colonoscopy by Dr. Hackett. He did find the whole colon to have dark blood and found an AV malformation in the cecum that he cauterized. This was felt to be the culprit lesion. The patient was told to hold off on Xarelto for the next 48 hours. The patient's hemoglobin was stable at 8.1. Care was discussed in detail with the patient. Questions were answered. Also discussed with Dr. Hackett the findings this evening. PHYSICAL EXAMINATION: Temperature 97.2, blood pressure 145/47. ABDOMEN: Soft nontender. DISCHARGE MEDICATIONS: 1. Vitamin D3 2000 units p.o. daily. 2. Labetalol 100 mg b.i.d. 3. Zestril 5 mg p.o. daily. 4. Tylenol with codeine q.6h p.r.n. 5. Tradjenta 5 mg p.o. daily. 6. Zantac 150 mg p.o. b.i.d. 7. Xarelto 50 mg p.o. daily, start in 48 hours. 8. Zocor 20 mg q.h.s. 9. Norvasc 5 mg p.o. daily. 10.Ultram 50 mg q.6h p.r.n. Follow with Dr. Colin in 2 weeks, follow with Dr. Ross in 1 week. Follow up with Dr. Hackett on 07/31/2018. Discussion and discharge planning more than [address] Ross. MMLUIS / LISSETT: [id number] /
== END 2018-06-26 20:02 | disposition home or self-care (01) | DRG 378 ==
LOC: EC 10:52 → 5MS5E 12:52 → OBSVTOIN 06-25 14:05 → UNDODISOB 06-26 20:02
PROVIDERS: ADMIT Hospitalist; ATTEND Hospitalist
PROC: 0W3P8ZZ Control Bleeding in Gastrointestinal Tract, Via Natural or Artificial Opening Endoscopic (ICD-10-PCS; 2018-06-26)
PROC: 0DB98ZX Excision of Duodenum, Via Natural or Artificial Opening Endoscopic, Diagnostic (ICD-10-PCS; principal; 2018-06-26 07:30)
PROC: 0DB78ZX Excision of Stomach, Pylorus, Via Natural or Artificial Opening Endoscopic, Diagnostic (ICD-10-PCS; 2018-06-26 07:30)
DX: K55.21 Angiodysplasia of colon with hemorrhage (principal); D62 Acute posthemorrhagic anemia; D68.9 Coagulation defect, unspecified; I25.10 Atherosclerotic heart disease of native coronary artery without angina pectoris; I12.9 Hypertensive chronic kidney disease with stage 1 through stage 4 chronic kidney disease, or unspecified chronic kidney disease; N18.9 Chronic kidney disease, unspecified; E11.22 Type 2 diabetes mellitus with diabetic chronic kidney disease; E78.5 Hyperlipidemia, unspecified; I48.0 Paroxysmal atrial fibrillation; I35.0 Nonrheumatic aortic (valve) stenosis; K76.0 Fatty (change of) liver, not elsewhere classified; K59.00 Constipation, unspecified; K29.50 Unspecified chronic gastritis without bleeding; K29.80 Duodenitis without bleeding; K22.2 Esophageal obstruction; K57.30 Diverticulosis of large intestine without perforation or abscess without bleeding; Z79.84 Long term (current) use of oral hypoglycemic drugs; Z95.1 Presence of aortocoronary bypass graft; Z80.8 Family history of malignant neoplasm of other organs or systems; I25.2 Old myocardial infarction; Z88.8 Allergy status to other drugs, medicaments and biological substances; Z87.891 Personal history of nicotine dependence; Z79.01 Long term (current) use of anticoagulants; Z79.899 Other long term (current) drug therapy; Z79.1 Long term (current) use of non-steroidal anti-inflammatories (NSAID)
CPT/HCPCS: 36415; 43239; 45388; 80048; 80053; 82272; 82550; 82553; 82728; 83036; 83540; 83550; 83735; 84484; 85025; 85610; 85730; 88305; 93005; 93306; 96374; 96375; 99291

== ENCOUNTER 2018-06-27 15:49 | Emergency (ER) | payer MEDICARE, BC ==
--- NOTE | 2018-06-27 16:41 | ED ---
General Adult HPI - General Chief complaint: Recheck/Abnormal Lab/Rx Stated complaint: Overdose Time Seen by Provider: 06/27/18 16:11 Source: patient Mode of arrival: ambulatory Limitations: no limitations - History of Present Illness Initial comments: Patient is an 87-year-old female presents with a chief complaint of taking one too many tramadol tablets. Patient took her first dose at 1:30, and accident was a second dose of 3:00. The patient took a dose of 50 mg twice today. They called poison control instructed to come to the emergency department if there are any concerns. Patient states that she has been wide-awake and does not feel any different. She is able to handle it well without assistance. No other concerns. - Related Data Home Medications Medication Instructions Recorded Confirmed Cholecalciferol [Vitamin D3] 2,000 unit PO DAILY 09/24/15 06/24/18 Linagliptin [Tradjenta] 5 mg PO DAILY 06/18/18 06/24/18 Ranitidine HCl [Zantac] 150 mg PO BID 06/18/18 06/24/18 Rivaroxaban [Xarelto] 15 mg PO DAILY 06/18/18 06/24/18 Simvastatin [Zocor] 20 mg PO HS 06/18/18 06/24/18 amLODIPine [Norvasc] 5 mg PO DAILY 06/18/18 06/24/18 traMADol HCL [Ultram] 50 mg PO Q6HR PRN 06/24/18 06/24/18 Previous Rx's Medication Instructions Recorded Labetalol [Trandate] 100 mg PO BID #60 tablet 05/27/16 Lisinopril [Zestril] 5 mg PO DAILY tab 05/27/16 Acetaminophen-Codeine 300-30mg 1 tab PO Q6H PRN 3 Days #12 tablet 06/18/18 [Tylenol w/codeine #3] Allergies Allergy/AdvReac Type Severity Reaction Status Date / Time zolpidem [From Ambien] AdvReac Hallucinati Verified 06/27/18 16:00 ons Review of Systems ROS Statement: Those systems with pertinent positive or pertinent negative responses have been documented in the HPI. ROS Other: All systems not noted in ROS Statement are negative. Past Medical History Past Medical History: Coronary Artery Disease (CAD), Chest Pain / Angina, Diabetes Mellitus, Hyperlipidemia, Hypertension, Myocardial Infarction ([place]), Syncope Additional Past Medical History / Comment(s): NIDDM type II, vertigo/weakness for past 5 years and pt states she has had tests but no one knows why, weakness , gait disturbance, falls, bilateral cataracts. Last Myocardial Infarction Date:: 1995 History of Any Multi-Drug Resistant Organisms: None Reported Past Surgical History: Adenoidectomy, Coronary Bypass/CABG, Heart Catheterization, Orthopedic Surgery, Tonsillectomy Additional Past Surgical History / Comment(s): 3 vessel CABG 1995 in [place], R caratid endartectomy 2016, ORIF L ankle d/t fracture. Past Anesthesia/Blood Transfusion Reactions: No Reported Reaction Past Psychological History: No Psychological Hx Reported Smoking Status: Former smoker Past Alcohol Use History: None Reported Past Drug Use History: None Reported - Past Family History Mother Family Medical History: No Reported History Father Family Medical History: No Reported History Son(s) Family Medical History: Cancer Additional Family Medical History / Comment(s): Throat cancer General Exam Limitations: no limitations General appearance: alert, in no apparent distress Head exam: Present: atraumatic, normocephalic Eye exam: Present: normal appearance, PERRL ENT exam: Present: normal exam, mucous membranes moist Neck exam: Present: normal inspection Respiratory exam: Present: normal lung sounds bilaterally. Absent: respiratory distress, wheezes Cardiovascular Exam: Present: regular rate, normal rhythm GI/Abdominal exam: Present: soft. Absent: distended, tenderness Extremities exam: Present: normal inspection Back exam: Present: normal inspection Neurological exam: Present: alert, oriented X3, CN II-XII intact, normal gait. Absent: motor sensory deficit Psychiatric exam: Present: normal affect, normal mood Skin exam: Present: warm, dry, intact Course Vital Signs 06/27/18 15:57 Temperature 98.3 F Pulse Rate 68 Respiratory 20 Rate Blood Pressure 130/49 O2 Sat by Pulse 98 Oximetry Medical Decision Making - Medical Decision Making Patient presents with a chief complaint of accidentally taking 1 today tramadol tablets. On initial evaluation, vitals are stable, patient is in no acute distress. She is keenly awake and alert. She is alert and oriented 3. She is able to really well without assistance. There is no respiratory distress present. This time, the patient is an hour and a half from the last time she took the medication. I do not believe that there is any impending respiratory distress given patient's normal exam. Patient and her daughter were reassured, they were instructed to skip her next dose and restart tomorrow morning. They' re given explicit signs and symptoms that should prompt immediate return to the emergency department. I discussed side effects and adverse reactions of the medication. They verbalize understanding. Patient stable for discharge. Disposition Clinical Impression: Accidental drug ingestion Disposition: HOME SELF-CARE Condition: Good Instructions: Safe Use of Narcotics (ED) Is patient prescribed a controlled substance at d/c from ED?: No Referrals: Jason Ross DO [Primary Care Provider] - 1-2 days
[2018-06-27 17:00] VITALS: BP 165/69; PULSE 61; RESP 18; TEMP 98.4
== END 2018-06-27 16:59 | disposition home or self-care (01) ==
LOC: EC 15:49
DX: T40.4X1A Poisoning by other synthetic narcotics, accidental (unintentional), initial encounter (principal); I25.119 Atherosclerotic heart disease of native coronary artery with unspecified angina pectoris; E11.9 Type 2 diabetes mellitus without complications; E78.5 Hyperlipidemia, unspecified; I10 Essential (primary) hypertension; I25.2 Old myocardial infarction; Z79.01 Long term (current) use of anticoagulants; Z79.84 Long term (current) use of oral hypoglycemic drugs; Z79.899 Other long term (current) drug therapy; Z88.8 Allergy status to other drugs, medicaments and biological substances; Z87.891 Personal history of nicotine dependence; Z95.1 Presence of aortocoronary bypass graft
CPT/HCPCS: 99283

== ENCOUNTER 2018-07-03 13:31 | Emergency (ER) | payer MEDICARE, BC ==
[2018-07-03] MEDS ORDERED: MORPHINE SULFATE 2 MG/ML SYRINGE IVP STA (15:10)
[2018-07-03] MEDS ORDERED: SODIUM CHLORIDE 0.9% 1,000 ML IV STA ×2 (15:10)
[2018-07-03 15:40] LABS: Basophils % (A) 0 %; Eosinophils # (A) 0.1 k/uL (0-0.7); Eosinophils % (A) 1 %; HCT 28.9 % (34.0-46.0); HGB 9.1 gm/dL (11.4-16.0); Hypochromasia Moderate; Lymphocytes # (A) 1.1 k/uL (1.0-4.8); Lymphocytes % (A) 10 %; MCH 26.8 pg (25.0-35.0); MCHC 31.3 g/dL (31.0-37.0); MCV 85.4 fL (80.0-100.0); Mean Platelet Volume 7.2; Monocytes # (A) 0.9 k/uL (0-1.0); Monocytes % (A) 9 %; Neutrophils # (A) 8.1 k/uL (1.3-7.7); Neutrophils % (A) 77 %; Platelet Count 340 k/uL (150-450); RBC 3.39 m/uL (3.80-5.40); RDW 15.2 % (11.5-15.5); WBC 10.5 k/uL (3.8-10.6)
--- NOTE | 2018-07-03 15:48 | XR ---
EXAMINATION TYPE: XR KUB DATE OF EXAM: 07/03/2018 COMPARISON: None INDICATION: Abdomen pain flank pain TECHNIQUE: Single view abdomen FINDINGS: There is a nonspecific bowel gas pattern. No suspicious air-fluid levels or free air is evident. Psoas margins are normal. No organomegaly is present. No suspicious calcifications. IMPRESSION: 1. Nonspecific abdomen.
[2018-07-03 15:53] LABS: INR 1.2 (<1.2); Partial Thromboplastin Time 25.8 sec (22.0-30.0); Prothrombin Time 11.4 sec (9.0-12.0)
[2018-07-03 15:56] LABS: Albumin 3.9 g/dL (3.5-5.0); Calcium 9.2 mg/dL (8.4-10.2); Potassium 4.7 mmol/L (3.5-5.1); Total Bilirubin 1.1 mg/dL (0.2-1.3); Total Protein 6.5 g/dL (6.3-8.2)
--- NOTE | 2018-07-03 15:59 | ED ---
Back Pain HPI - General Chief Complaint: Back Pain/Injury Stated Complaint: back pain Time Seen by Provider: 07/03/18 14:36 Source: patient, RN notes reviewed, old records reviewed Limitations: no limitations - History of Present Illness Initial Comments: Patient is a 87-year-old female presents emergency Department with multiple complaints. Patient states she's been having issues with chronic back and lower leg pain. Patient states it's difficult for her to ambulate. Patient also complains of constipation and having her stools per to have a bowel movement approximately one day ago. - Related Data Home Medications Medication Instructions Recorded Confirmed Cholecalciferol [Vitamin D3] 2,000 unit PO DAILY 09/24/15 07/03/18 Linagliptin [Tradjenta] 5 mg PO DAILY 06/18/18 07/03/18 Ranitidine HCl [Zantac] 150 mg PO BID 06/18/18 07/03/18 Rivaroxaban [Xarelto] 15 mg PO DAILY 06/18/18 07/03/18 Simvastatin [Zocor] 20 mg PO HS 06/18/18 07/03/18 amLODIPine [Norvasc] 5 mg PO DAILY 06/18/18 07/03/18 traMADol HCL [Ultram] 50 mg PO Q6HR PRN 06/24/18 07/03/18 Previous Rx's Medication Instructions Recorded Labetalol [Trandate] 100 mg PO BID #60 tablet 05/27/16 Lisinopril [Zestril] 5 mg PO DAILY tab 05/27/16 Polyethylene Glycol 3350 [Miralax] 17 gm PO DAILY #20 packet 07/03/18 Allergies Allergy/AdvReac Type Severity Reaction Status Date / Time zolpidem [From Ambien] AdvReac Hallucinati Verified 07/03/18 15:22 ons Review of Systems ROS Statement: Those systems with pertinent positive or pertinent negative responses have been documented in the HPI. ROS Other: All systems not noted in ROS Statement are negative. Past Medical History Past Medical History: Coronary Artery Disease (CAD), Chest Pain / Angina, Diabetes Mellitus, Hyperlipidemia, Hypertension, Myocardial Infarction ([place]), Syncope Additional Past Medical History / Comment(s): NIDDM type II, vertigo/weakness for past 5 years and pt states she has had tests but no one knows why, weakness , gait disturbance, falls, bilateral cataracts. Last Myocardial Infarction Date:: 1995 History of Any Multi-Drug Resistant Organisms: None Reported Past Surgical History: Adenoidectomy, Coronary Bypass/CABG, Heart Catheterization, Orthopedic Surgery, Tonsillectomy Additional Past Surgical History / Comment(s): 3 vessel CABG 1995 in [place], R caratid endartectomy 2016, ORIF L ankle d/t fracture. Past Anesthesia/Blood Transfusion Reactions: No Reported Reaction Past Psychological History: No Psychological Hx Reported Smoking Status: Former smoker Past Alcohol Use History: None Reported Past Drug Use History: None Reported - Past Family History Mother Family Medical History: No Reported History Father Family Medical History: No Reported History Son(s) Family Medical History: Cancer Additional Family Medical History / Comment(s): Throat cancer General Exam - General Exam Comments Initial Comments: 87-year-old female. Alert and oriented. No significant distress. Limitations: no limitations General appearance: alert, in no apparent distress Head exam: Present: atraumatic, normocephalic, normal inspection Eye exam: Present: normal appearance, PERRL, EOMI. Absent: scleral icterus, conjunctival injection, periorbital swelling ENT exam: Present: normal exam, mucous membranes moist Neck exam: Present: normal inspection. Absent: tenderness, meningismus, lymphadenopathy Respiratory exam: Present: normal lung sounds bilaterally. Absent: respiratory distress, wheezes, rales, rhonchi, stridor Cardiovascular Exam: Present: regular rate, normal rhythm, normal heart sounds. Absent: systolic murmur, diastolic murmur, rubs, gallop, clicks GI/Abdominal exam: Present: soft, normal bowel sounds. Absent: distended, tenderness, guarding, rebound, rigid Extremities exam: Present: normal inspection, full ROM, normal capillary refill. Absent: tenderness, pedal edema, joint swelling, calf tenderness Back exam: Present: normal inspection Neurological exam: Present: alert, oriented X3, CN II-XII intact Course Vital Signs 07/03/18 07/03/18 13:41 15:43 Temperature 99.2 F Pulse Rate 78 71 Respiratory 18 20 Rate Blood Pressure 140/51 134/56 O2 Sat by Pulse 95 99 Oximetry Medical Decision Making - Medical Decision Making This Patient is an 87-year-old female process for his today with concerns for back pain, she's been having chronic back pain over several months. Patient was also concerned she felt like her urine was dark bloody. They're concerned for any issues with her kidney. She reports she did have a colonoscopy one week ago and all was well with that. Patient states that she did not complain of some constipation for the past day that she did have bowel movement 2 days ago. At this time patient's labwork was obtained and improved from HER previous labs. Kidney functions within normal limits. Hemoglobin was increased from previous. At this time Patient was able to ambulate without difficulty to the bathroom. She has no falls or traumatic injury. Discussed that the patient's skilled skeletal back pain. She does follow up with a musculoskeletal orthopedic physician. She'll continue her Ultram. She also concerned with constipation with be on Ultram sole prescriber minute MiraLAX as well. Discussed the importance of remaining hydrated. Patient agrees to treatment plan will comply. - Lab Data Result diagrams: 07/03/18 15:26 07/03/18 15:26 Lab Results 07/03/18 07/03/18 07/03/18 Range/Units 15:26 15:26 15:26 WBC 10.5 (3.8-10.6) k/uL RBC 3.39 L (3.80-5.40) m/uL Hgb 9.1 L (11.4-16.0) gm/dL Hct 28.9 L (34.0-46.0) % MCV 85.4 (80.0-100.0) fL MCH 26.8 (25.0-35.0) pg MCHC 31.3 (31.0-37.0) g/dL RDW 15.2 (11.5-15.5) % Plt Count 340 (150-450) k/uL Neutrophils % 77 % Lymphocytes % 10 % Monocytes % 9 % Eosinophils % 1 % Basophils % 0 % Neutrophils # 8.1 H (1.3-7.7) k/uL Lymphocytes # 1.1 (1.0-4.8) k/uL Monocytes # 0.9 (0-1.0) k/uL Eosinophils # 0.1 (0-0.7) k/uL Basophils # 0.0 (0-0.2) k/uL Hypochromasia Moderate PT 11.4 (9.0-12.0) sec INR 1.2 H (<1.2) APTT 25.8 (22.0-30.0) sec Sodium 138 (137-145) mmol/L Potassium 4.7 (3.5-5.1) mmol/L Chloride 105 (98-107) mmol/L Carbon Dioxide 23 (22-30) mmol/L Anion Gap 10 mmol/L BUN 18 H (7-17) mg/dL Creatinine 1.28 H (0.52-1.04) mg/dL Est GFR (CKD-EPI)AfAm 44 (>60 ml/min/1.73 sqM) Est GFR (CKD-EPI)NonAf 38 (>60 ml/min/1.73 sqM) Glucose 106 H (74-99) mg/dL Calcium 9.2 (8.4-10.2) mg/dL Total Bilirubin 1.1 (0.2-1.3) mg/dL AST 18 (14-36) U/L ALT 28 (9-52) U/L Alkaline Phosphatase 35 L (38-126) U/L Total Protein 6.5 (6.3-8.2) g/dL Albumin 3.9 (3.5-5.0) g/dL Amylase 59 (30-110) U/L Lipase 76 (23-300) U/L Urine Color Urine Appearance (Clear) Urine pH (5.0-8.0) Ur Specific [place] (1.001-1.035) Urine Protein (Negative) Urine Glucose (UA) (Negative) Urine Ketones (Negative) Urine Blood (Negative) Urine Nitrite (Negative) Urine Bilirubin (Negative) Urine Urobilinogen (<2.0) mg/dL Ur Leukocyte Esterase (Negative) Ur Squamous Epith Cells (0-4) /hpf 07/03/18 Range/Units 17:09 WBC (3.8-10.6) k/uL RBC (3.80-5.40) m/uL Hgb (11.4-16.0) gm/dL Hct (34.0-46.0) % MCV (80.0-100.0) fL MCH (25.0-35.0) pg MCHC (31.0-37.0) g/dL RDW (11.5-15.5) % Plt Count (150-450) k/uL Neutrophils % % Lymphocytes % % Monocytes % % Eosinophils % % Basophils % % Neutrophils # (1.3-7.7) k/uL Lymphocytes # (1.0-4.8) k/uL Monocytes # (0-1.0) k/uL Eosinophils # (0-0.7) k/uL Basophils # (0-0.2) k/uL Hypochromasia PT (9.0-12.0) sec INR (<1.2) APTT (22.0-30.0) sec Sodium (137-145) mmol/L Potassium (3.5-5.1) mmol/L Chloride (98-107) mmol/L Carbon Dioxide (22-30) mmol/L Anion Gap mmol/L BUN (7-17) mg/dL Creatinine (0.52-1.04) mg/dL Est GFR (CKD-EPI)AfAm (>60 ml/min/1.73 sqM) Est GFR (CKD-EPI)NonAf (>60 ml/min/1.73 sqM) Glucose (74-99) mg/dL Calcium (8.4-10.2) mg/dL Total Bilirubin (0.2-1.3) mg/dL AST (14-36) U/L ALT (9-52) U/L Alkaline Phosphatase (38-126) U/L Total Protein (6.3-8.2) g/dL Albumin (3.5-5.0) g/dL Amylase (30-110) U/L Lipase (23-300) U/L Urine Color Light Yellow Urine Appearance Clear (Clear) Urine pH 6.0 (5.0-8.0) Ur Specific [place] 1.006 (1.001-1.035) Urine Protein 1+ H (Negative) Urine Glucose (UA) Negative (Negative) Urine Ketones Trace H (Negative) Urine Blood Negative (Negative) Urine Nitrite Negative (Negative) Urine Bilirubin Negative (Negative) Urine Urobilinogen <2.0 (<2.0) mg/dL Ur Leukocyte Esterase Negative (Negative) Ur Squamous Epith Cells <1 (0-4) /hpf Disposition Clinical Impression: Back pain, Constipation Disposition: HOME SELF-CARE Condition: Good Instructions: Chronic Back Pain (ED) Additional Instructions: Patient advised to continue pain medication as well as take the MiraLAX as prescribed. Follow-up with PCP. Patient should drink plenty of water. Ambulate with walker. Return to emergency department if any alarming signs or symptoms occur. Prescriptions: Polyethylene Glycol 3350 [Miralax] 17 gm PO DAILY #20 packet Is patient prescribed a controlled substance at d/c from ED?: No Referrals: Jason Ross DO [Primary Care Provider] - 1-2 days Serene Sorenson MD [STAFF PHYSICIAN] - 1-2 days Jessica Diehl MD [REFERRING] - 1-2 days Edin Camargo MD [STAFF PHYSICIAN] - 1-2 days Duncan Carrillo DO [Doctor of Osteopathic Medicine] - 1-2 days Time of Disposition: 18:15
[2018-07-03 17:36] LABS: Appearance,Urine Clear (Clear); Bilirubin,Urine Negative (Negative); Blood,Urine Negative (Negative); Color,Urine Light Yellow; Glucose,Urine (UA) Negative (Negative); Ketones,Urine Trace (Negative); Leukocyte Esterase,Urine Negative (Negative); Nitrite,Urine Negative (Negative); Protein,Urine 1+ (Negative); Specific Gravity,Urine 1.006 (1.001-1.035); Squamous Epithelial Cell,Urine <1 /hpf (0-4); Urobilinogen,Urine <2.0 mg/dL (<2.0)
[2018-07-03 18:36] VITALS: BP 140/89; PULSE 60; RESP 18; TEMP 98.9
== END 2018-07-03 18:36 | disposition home or self-care (01) ==
LOC: EC 13:31
DX: M54.9 Dorsalgia, unspecified (principal); K59.00 Constipation, unspecified; G89.29 Other chronic pain; M79.669 Pain in unspecified lower leg; E78.5 Hyperlipidemia, unspecified; I10 Essential (primary) hypertension; I25.10 Atherosclerotic heart disease of native coronary artery without angina pectoris; E11.36 Type 2 diabetes mellitus with diabetic cataract; I25.2 Old myocardial infarction; Z87.891 Personal history of nicotine dependence; Z88.8 Allergy status to other drugs, medicaments and biological substances; Z79.01 Long term (current) use of anticoagulants; Z79.84 Long term (current) use of oral hypoglycemic drugs; Z79.899 Other long term (current) drug therapy; Z86.79 Personal history of other diseases of the circulatory system; Z95.1 Presence of aortocoronary bypass graft
CPT/HCPCS: 36415; 80053; 82150; 83690; 85025; 85610; 85730; 81001; 74018; 99284; 96374; 96361 ×3; J2270

== ENCOUNTER 2018-07-05 12:21 | Inpatient (IN) | payer MEDICARE, BC ==
[2018-07-05] MEDS ORDERED: SODIUM CHLORIDE 0.9% 1,000 ML IV STA (12:42)
[2018-07-05] MEDS ORDERED: SODIUM CHLORIDE 0.9% 500 ML 500 ML IV ONE (12:45)
--- NOTE | 2018-07-05 12:48 | ED ---
General Adult HPI - General Chief complaint: Weakness Stated complaint: Weakness,Dehydration Time Seen by Provider: 07/05/18 12:24 Source: patient, family, EMS, RN notes reviewed Mode of arrival: EMS Limitations: no limitations - History of Present Illness Initial comments: This an 87-year-old female presents emergency Department with multiple complaints. Patient states she is generalized weak, dehydrated she has a very dry mouth. Patient states that she has been in out of the hospital ER for multiple complaints. She's had increased lower extremity weakness she states that she now has sees a walker. Patient states that she has no appetite but also is very nauseated. There is concern as she is having difficulty taking care of herself. Patient has had recent GI bleed and was admitted. They do state that her coloring seems to be off that she seems to be pale and slightly yellow tinged. She has no known liver disease. She states that her mouth is so dry that she cannot use her dentures. - Related Data Home Medications Medication Instructions Recorded Confirmed Cholecalciferol [Vitamin D3] 2,000 unit PO DAILY 09/24/15 07/05/18 Linagliptin [Tradjenta] 5 mg PO DAILY 06/18/18 07/05/18 Ranitidine HCl [Zantac] 150 mg PO BID 06/18/18 07/05/18 Rivaroxaban [Xarelto] 15 mg PO HS 06/18/18 07/05/18 Simvastatin [Zocor] 20 mg PO HS 06/18/18 07/05/18 amLODIPine [Norvasc] 5 mg PO HS 06/18/18 07/05/18 traMADol HCL [Ultram] 50 mg PO Q6HR PRN 06/24/18 07/05/18 Previous Rx's Medication Instructions Recorded Labetalol [Trandate] 100 mg PO BID #60 tablet 05/27/16 Lisinopril [Zestril] 5 mg PO DAILY tab 05/27/16 Polyethylene Glycol 3350 [Miralax] 17 gm PO DAILY #20 packet 07/03/18 Allergies Allergy/AdvReac Type Severity Reaction Status Date / Time zolpidem [From Ambien] AdvReac Hallucinati Verified 07/05/18 13:08 ons Review of Systems ROS Statement: Those systems with pertinent positive or pertinent negative responses have been documented in the HPI. ROS Other: All systems not noted in ROS Statement are negative. Past Medical History Past Medical History: Coronary Artery Disease (CAD), Chest Pain / Angina, Diabetes Mellitus, Hyperlipidemia, Hypertension, Myocardial Infarction ([place]), Syncope Additional Past Medical History / Comment(s): NIDDM type II, vertigo/weakness for past 5 years and pt states she has had tests but no one knows why, weakness , gait disturbance, falls, bilateral cataracts. Last Myocardial Infarction Date:: 1995 History of Any Multi-Drug Resistant Organisms: None Reported Past Surgical History: Adenoidectomy, Coronary Bypass/CABG, Heart Catheterization, Orthopedic Surgery, Tonsillectomy Additional Past Surgical History / Comment(s): 3 vessel CABG 1995 in [place], R caratid endartectomy 2015, ORIF L ankle d/t fracture. Past Anesthesia/Blood Transfusion Reactions: No Reported Reaction Past Psychological History: No Psychological Hx Reported Smoking Status: Former smoker Past Alcohol Use History: None Reported Past Drug Use History: None Reported - Past Family History Mother Family Medical History: No Reported History Father Family Medical History: No Reported History Son(s) Family Medical History: Cancer Additional Family Medical History / Comment(s): Throat cancer General Exam Limitations: no limitations General appearance: alert, in no apparent distress Head exam: Present: atraumatic, normocephalic, normal inspection Eye exam: Present: normal appearance, PERRL, EOMI. Absent: scleral icterus, conjunctival injection, periorbital swelling ENT exam: Present: mucous membranes dry. Absent: normal oropharynx, mucous membranes moist Neck exam: Present: normal inspection, full ROM. Absent: tenderness, meningismus, lymphadenopathy Respiratory exam: Present: normal lung sounds bilaterally. Absent: respiratory distress, wheezes, rales, rhonchi, stridor Cardiovascular Exam: Present: regular rate, normal rhythm, normal heart sounds. Absent: systolic murmur, diastolic murmur, rubs, gallop, clicks GI/Abdominal exam: Present: soft, normal bowel sounds. Absent: distended, tenderness, guarding, rebound, rigid Rectal exam: Present: normal inspection, other (Exam performed with min RN) Neurological exam: Present: alert, oriented X3, CN II-XII intact Skin exam: Present: warm, dry Course Vital Signs 10/14/18 10/14/18 10/14/18 12:23 12:26 12:30 Temperature 97.9 F Pulse Rate 71 Respiratory 14 Rate Blood Pressure 125/52 O2 Sat by Pulse 88 L 80 L 88 L Oximetry 07/05/18 07/05/18 07/05/18 12:40 12:50 13:00 Temperature Pulse Rate 75 77 70 Respiratory 28 H 10 L Rate Blood Pressure 125/52 125/52 125/52 O2 Sat by Pulse 92 L 93 L 92 L Oximetry 07/05/18 07/05/18 07/05/18 13:10 13:20 13:30 Temperature Pulse Rate 71 71 Respiratory 19 12 Rate Blood Pressure 112/54 112/54 112/54 O2 Sat by Pulse 94 L 91 L Oximetry 07/05/18 07/05/18 13:40 13:50 Temperature Pulse Rate 77 71 Respiratory 10 L 13 Rate Blood Pressure 122/52 122/52 O2 Sat by Pulse 88 L 94 L Oximetry EKG Findings - EKG Comments: EKG Findings:: EKG performed at 612:55 normal sinus rhythm with rate of 70 1 PM 154 QRS 98 QT/QTC 392/425 Medical Decision Making - Medical Decision Making 87-year-old female presented for multiple complaints, weakness. Patient be admitted for GI bleed, anemia, elevated troponin, dehydration. - Lab Data Result diagrams: 07/05/18 12:39 07/05/18 12:39 Lab Results 07/05/18 07/05/18 07/05/18 Range/Units 12:39 12:39 12:39 WBC 12.3 H (3.8-10.6) k/uL RBC 2.65 L (3.80-5.40) m/uL Hgb 7.0 L D (11.4-16.0) gm/dL Hct 23.2 L (34.0-46.0) % MCV 87.4 (80.0-100.0) fL MCH 26.5 (25.0-35.0) pg MCHC 30.3 L (31.0-37.0) g/dL RDW 15.4 (11.5-15.5) % Plt Count 392 (150-450) k/uL Neutrophils % 83 % Lymphocytes % 6 % Monocytes % 8 % Eosinophils % 1 % Basophils % 0 % Neutrophils # 10.2 H (1.3-7.7) k/uL Lymphocytes # 0.7 L (1.0-4.8) k/uL Monocytes # 0.9 (0-1.0) k/uL Eosinophils # 0.1 (0-0.7) k/uL Basophils # 0.1 (0-0.2) k/uL Hypochromasia Marked PT (9.0-12.0) sec INR (<1.2) APTT (22.0-30.0) sec Sodium 134 L (137-145) mmol/L Potassium 5.2 H (3.5-5.1) mmol/L Chloride 104 (98-107) mmol/L Carbon Dioxide 17 L (22-30) mmol/L Anion Gap 13 mmol/L BUN 38 H (7-17) mg/dL Creatinine 1.73 H (0.52-1.04) mg/dL Est GFR (CKD-EPI)AfAm 30 (>60 ml/min/1.73 sqM) Est GFR (CKD-EPI)NonAf 26 (>60 ml/min/1.73 sqM) Glucose 125 H (74-99) mg/dL Plasma Lactic Acid Jose (0.7-2.0) mmol/L Calcium 8.4 (8.4-10.2) mg/dL Phosphorus 4.6 H (2.5-4.5) mg/dL Magnesium 2.3 (1.6-2.3) mg/dL Total Bilirubin 1.2 (0.2-1.3) mg/dL AST 26 (14-36) U/L ALT 29 (9-52) U/L Alkaline Phosphatase 32 L (38-126) U/L Total Creatine Kinase 230 H (30-135) U/L CK-MB (CK-2) 3.9 H (0.0-2.4) ng/mL CK-MB (CK-2) Rel Index 1.7 Troponin I 1.370 H* (0.000-0.034) ng/mL NT-Pro-B Natriuret Pep pg/mL Total Protein 5.7 L (6.3-8.2) g/dL Albumin 3.2 L (3.5-5.0) g/dL 07/05/18 07/05/18 07/05/18 Range/Units 12:39 12:39 13:00 WBC (3.8-10.6) k/uL RBC (3.80-5.40) m/uL Hgb (11.4-16.0) gm/dL Hct (34.0-46.0) % MCV (80.0-100.0) fL MCH (25.0-35.0) pg MCHC (31.0-37.0) g/dL RDW (11.5-15.5) % Plt Count (150-450) k/uL Neutrophils % % Lymphocytes % % Monocytes % % Eosinophils % % Basophils % % Neutrophils # (1.3-7.7) k/uL Lymphocytes # (1.0-4.8) k/uL Monocytes # (0-1.0) k/uL Eosinophils # (0-0.7) k/uL Basophils # (0-0.2) k/uL Hypochromasia PT 12.2 H (9.0-12.0) sec INR 1.3 H (<1.2) APTT 24.6 (22.0-30.0) sec Sodium (137-145) mmol/L Potassium (3.5-5.1) mmol/L Chloride (98-107) mmol/L Carbon Dioxide (22-30) mmol/L Anion Gap mmol/L BUN (7-17) mg/dL Creatinine (0.52-1.04) mg/dL Est GFR (CKD-EPI)AfAm (>60 ml/min/1.73 sqM) Est GFR (CKD-EPI)NonAf (>60 ml/min/1.73 sqM) Glucose (74-99) mg/dL Plasma Lactic Acid Jose 1.2 (0.7-2.0) mmol/L Calcium (8.4-10.2) mg/dL Phosphorus (2.5-4.5) mg/dL Magnesium (1.6-2.3) mg/dL Total Bilirubin (0.2-1.3) mg/dL AST (14-36) U/L ALT (9-52) U/L Alkaline Phosphatase (38-126) U/L Total Creatine Kinase (30-135) U/L CK-MB (CK-2) (0.0-2.4) ng/mL CK-MB (CK-2) Rel Index Troponin I (0.000-0.034) ng/mL NT-Pro-B Natriuret Pep 26015 pg/mL Total Protein (6.3-8.2) g/dL Albumin (3.5-5.0) g/dL Disposition Clinical Impression: Anemia, GI bleed, Elevated troponin, Dehydration, Weakness, Acute kidney injury Disposition: ADMITTED IP TO THIS HOSP Condition: Fair Referrals: Jason Ross DO [Primary Care Provider] - 1-2 days
[2018-07-05 12:56] LABS: Basophils # (A) 0.1 k/uL (0-0.2); Basophils % (A) 0 %; Eosinophils # (A) 0.1 k/uL (0-0.7); Eosinophils % (A) 1 %; HCT 23.2 % (34.0-46.0); Hypochromasia Marked; Lymphocytes # (A) 0.7 k/uL (1.0-4.8); Lymphocytes % (A) 6 %; MCH 26.5 pg (25.0-35.0); MCHC 30.3 g/dL (31.0-37.0); MCV 87.4 fL (80.0-100.0); Mean Platelet Volume 7.5; Monocytes # (A) 0.9 k/uL (0-1.0); Monocytes % (A) 8 %; Neutrophils # (A) 10.2 k/uL (1.3-7.7); Neutrophils % (A) 83 %; Platelet Count 392 k/uL (150-450); RBC 2.65 m/uL (3.80-5.40); RDW 15.4 % (11.5-15.5); WBC 12.3 k/uL (3.8-10.6)
[2018-07-05 13:06] LABS: INR 1.3 (<1.2); Partial Thromboplastin Time 24.6 sec (22.0-30.0); Prothrombin Time 12.2 sec (9.0-12.0)
[2018-07-05 13:11] LABS: Albumin 3.2 g/dL (3.5-5.0); Calcium 8.4 mg/dL (8.4-10.2); Magnesium 2.3 mg/dL (1.6-2.3); Phosphorus 4.6 mg/dL (2.5-4.5); Potassium 5.2 mmol/L (3.5-5.1); Total Bilirubin 1.2 mg/dL (0.2-1.3); Total Protein 5.7 g/dL (6.3-8.2)
--- NOTE | 2018-07-05 13:19 | XR ---
EXAMINATION TYPE: XR chest 2V DATE OF EXAM: 07/05/2018 HISTORY: Weakness. REFERENCE: Previous study dated 05/22/2016. FINDINGS: There has been a midline sternotomy. The heart is mildly enlarged. There are senescent changes within the chest. I do not see evidence of pneumonia or edema. Pleural spaces are clear. IMPRESSION: MILD CARDIOMEGALY.
[2018-07-05 13:30] LABS: Creatine Kinase MB 3.9 ng/mL (0.0-2.4)
[2018-07-05] MEDS ORDERED: PANTOPRAZOLE 40 MG/10 ML VIAL IVP STA (13:38)
[2018-07-05 13:45] LABS: Troponin I 1.37 ng/mL (0.000-0.034)
[2018-07-05] MEDS ORDERED: NITROGLYCERIN SL TABS 0.4 MG TAB SUBLINGUAL PRN (13:59)
[2018-07-05 14:01] LABS: Amorphous Sediment,Urine Rare /hpf; Appearance,Urine Cloudy (Clear); Bilirubin,Urine Negative (Negative); Blood,Urine Negative (Negative); Color,Urine Yellow; Glucose,Urine (UA) Negative (Negative); Hyaline Casts,Urine 2 /lpf (0-2); Ketones,Urine 1+ (Negative); Leukocyte Esterase,Urine Negative (Negative); Mucus,Urine Rare /hpf; Nitrite,Urine Negative (Negative); Protein,Urine 1+ (Negative); Specific Gravity,Urine 1.015 (1.001-1.035); Squamous Epithelial Cell,Urine <1 /hpf (0-4)
[2018-07-05 19:33] LABS: Basophils # (A) 0.1 k/uL (0-0.2); Basophils % (A) 1 %; Eosinophils % (A) 0 %; HCT 29.7 % (34.0-46.0); Hypochromasia Moderate; Lymphocytes # (A) 1.1 k/uL (1.0-4.8); Lymphocytes % (A) 9 %; MCHC 31.7 g/dL (31.0-37.0); MCV 85.2 fL (80.0-100.0); Mean Platelet Volume 7.2; Monocytes # (A) 1.1 k/uL (0-1.0); Monocytes % (A) 10 %; Neutrophils # (A) 8.7 k/uL (1.3-7.7); Neutrophils % (A) 77 %; Platelet Count 367 k/uL (150-450); Poikilocytosis Slight; RBC 3.48 m/uL (3.80-5.40); RDW 14.9 % (11.5-15.5); WBC 11.2 k/uL (3.8-10.6)
[2018-07-05 19:36] LABS: HGB 9.4 gm/dL (11.4-16.0)
[2018-07-05] MEDS ORDERED: DILTIAZEM DRIP BOLUS FROM BAG 1 MG SOLN IV ONE (20:07)
[2018-07-05 21:30] LABS: Creatine Kinase MB 4.5 ng/mL (0.0-2.4)
[2018-07-05] MEDS: DILTIAZEM 50 MG in SODIUM CHLORIDE 0.9% 40 ML IV SCH (21:38)
[2018-07-05 21:44] LABS: Troponin I 1.16 ng/mL (0.000-0.034)
[2018-07-06] MEDS: PANTOPRAZOLE 40 MG/10 ML VIAL IVP SCH ×3 (00:59→20:36)
[2018-07-06 02:01] LABS: Creatine Kinase MB 4.5 ng/mL (0.0-2.4)
[2018-07-06 02:03] LABS: Troponin I 1.06 ng/mL (0.000-0.034)
[2018-07-06] MEDS: DILTIAZEM 50 MG in SODIUM CHLORIDE 0.9% 40 ML IV SCH ×5 (02:41→20:37)
[2018-07-06 04:31] LABS: Cholesterol 114 mg/dL (<200); HDL Cholesterol 51 mg/dL (40-60); LDL Cholesterol,Calculated 41 mg/dL (0-99); Triglycerides 109 mg/dL (<150)
[2018-07-06 06:27] LABS: Glucose,Whole Blood 109 mg/dL (75-99)
[2018-07-06] MEDS ORDERED: traMADol 50 MG TAB PO PRN (11:46)
[2018-07-06 12:05] LABS: Glucose,Whole Blood 118 mg/dL (75-99)
[2018-07-06] MEDS: SODIUM CHLORIDE 0.9% 1,000 ML IV SCH (12:12)
--- NOTE | 2018-07-06 12:12 | P.CRDCN ---
History of Present Illness Consult date: 07/06/18 Requesting physician: Milagros Barth Reason for Consult (text): Elevated troponin Chief complaint: weakness History of present illness: This is a pleasant 87-year-old female patient with a past medical history significant for paroxysmal atrial fibrillation, on long-term anticoagulation, CAD status post bypass grafting with FRIEDMAN to the LAD and PLV RCA 1995, dyslipidemia, carotid artery disease status post endarterectomy, hypertension, diabetes, and recent GI bleed. She follows in the office with Dr. Colin. For this admission, patient comes in with complaints of overall weakness. He denies having any symptoms of abdominal pain, chest discomfort, shortness of breath, dizziness or palpitations. Upon presentation, patient was found to be anemic with hemoglobin of 7.0. Stool was negative for occult blood. She denies any bleeding. Patient was also found to have abnormal troponins at 0.37, 1.16 and 1.06. She did receive one unit of packed red cells and hemoglobin this morning is 9.4. BUN and creatinine are elevated at 38 and 1.73. Most recent echocardiogram from 06/25/2018 shows an ejection fraction of 55-60% with mild left ear and mild MR. Chest x-ray shows only mild cardiomegaly. She was also found to be in atrial fibrillation with rapid ventricular response and started on a Cardizem drip. EKG on admission showed sinus rhythm with anterior lateral ST-T wave changes. On examination, patient remains pain free. She continues to feel weak but denies palpitations, chest pain or pressure, shortness of breath, dizziness, lightheadedness or syncope. Past Medical History Past Medical History: Coronary Artery Disease (CAD), Chest Pain / Angina, Diabetes Mellitus, Hyperlipidemia, Hypertension, Myocardial Infarction ([place]), Syncope Additional Past Medical History / Comment(s): NIDDM type II, vertigo/weakness past 5 years and pt states she has had tests but no one knows why, weakness, gait disturbance, falls, bilateral cataracts. Last Myocardial Infarction Date:: 1995 History of Any Multi-Drug Resistant Organisms: None Reported Past Surgical History: Adenoidectomy, Coronary Bypass/CABG, Heart Catheterization, Orthopedic Surgery, Tonsillectomy Additional Past Surgical History / Comment(s): 3 vessel CABG 1995 in [place], carotid endartectomy 2015, ORIF L ankle d/t fracture. Past Anesthesia/Blood Transfusion Reactions: No Reported Reaction Past Psychological History: No Psychological Hx Reported Additional Psychological History / Comment(s): Pt resides alone in an apartment with her daughter living down the hallway. She has a walker but does not use it , pt states she is going to start using it. She no longer drives, her son takes her to appointments. Smoking Status: Former smoker Past Alcohol Use History: None Reported Additional Past Alcohol Use History / Comment(s): Pt started smoking in 1949 and quit in 2015. Past Drug Use History: None Reported Additional Drug Use History / Comment(s): Patient smoked for 60+ years. Quit in 2015 - Past Family History Mother Family Medical History: No Reported History Father Family Medical History: No Reported History Son(s) Family Medical History: Cancer Additional Family Medical History / Comment(s): Throat cancer Medications and Allergies Home Medications Medication Instructions Recorded Confirmed Type Cholecalciferol [Vitamin D3] 2,000 unit PO DAILY 09/24/15 07/05/18 History Labetalol [Trandate] 100 mg PO BID #60 tablet 05/27/16 07/05/18 Rx Lisinopril [Zestril] 5 mg PO DAILY tab 05/27/16 07/05/18 Rx Linagliptin [Tradjenta] 5 mg PO DAILY 06/18/18 07/05/18 History Ranitidine HCl [Zantac] 150 mg PO BID 06/18/18 07/05/18 History Rivaroxaban [Xarelto] 15 mg PO HS 06/18/18 07/05/18 History Simvastatin [Zocor] 20 mg PO HS 06/18/18 07/05/18 History amLODIPine [Norvasc] 5 mg PO HS 06/18/18 07/05/18 History traMADol HCL [Ultram] 50 mg PO Q6HR PRN 06/24/18 07/05/18 History Polyethylene Glycol 3350 [Miralax] 17 gm PO DAILY #20 packet 07/03/18 07/05/18 Rx Allergies Allergy/AdvReac Type Severity Reaction Status Date / Time zolpidem [From Ambien] AdvReac Hallucinati Verified 07/05/18 13:08 ons Physical Exam Vitals: Vital Signs Temp Pulse Pulse Resp BP BP Pulse Ox 07/06/18 08:00 98.4 F 100 20 134/65 90 L 07/06/18 04:00 137 H 20 126/58 90 L 07/06/18 01:45 146 H 15 07/05/18 23:50 128 H 133/94 97 07/05/18 23:00 140 H 07/05/18 22:30 133 H 15 123/47 93 L 07/05/18 22:00 128 H 18 111/57 94 L 07/05/18 21:30 137 H 15 124/68 92 L 07/05/18 21:00 135 H 15 126/69 07/05/18 20:30 133 H 21 114/67 88 L 07/05/18 20:00 123 H 23 129/65 94 L 07/05/18 19:38 98.2 F 85 129/65 07/05/18 17:30 68 15 128/54 94 L 07/05/18 16:32 98 F 88 132/51 07/05/18 16:02 98.5 F 78 16 122/52 07/05/18 15:52 98.5 F 71 16 119/51 07/05/18 15:48 98.5 F 66 18 123/43 07/05/18 15:36 98.5 F 146 H 20 143/65 93 L 07/05/18 14:30 67 16 117/51 07/05/18 13:30 71 12 112/54 91 L 07/05/18 13:20 71 19 112/54 94 L 07/05/18 13:10 112/54 07/05/18 13:00 70 10 L 125/52 92 L 07/05/18 12:50 77 28 H 125/52 93 L 07/05/18 12:40 75 125/52 92 L 07/05/18 12:30 88 L 07/05/18 12:26 80 L 07/05/18 12:23 97.9 F 71 14 125/52 88 L Intake and Output 07/05/18 07/06/18 07/06/18 22:59 06:59 14:59 Intake Total 316.667 93.333 47.25 Balance 316.667 93.333 47.25 Intake: Intake, IV Titration 6.667 93.333 47.25 Amount Diltiazem 50 mg In Sodium 6.667 93.333 47.25 Chloride 0.9% 40 ml @ 5 MG/HR 5 mls/hr IV .Q10H [facility] Rx#:[id number] Blood Product 310 Rc As-1 Unit 310 [id number] Other: Voiding Method Bedside Commode Diaper # Voids 1 Weight 65.771 kg 66.8 kg 66.8 kg PHYSICAL EXAMINATION: HEENT: Head is atraumatic, normocephalic. Pupils equal, round. Neck is supple. There is no elevated jugular venous pressure. HEART EXAMINATION: Heart sounds irregularly irregular, S1 and S2 with systolic murmur. CHEST EXAMINATION: Lungs are clear to auscultation and precussion. No chest wall tenderness is noted on palpation or with deep breathing. ABDOMEN: Soft, nontender. Bowel sounds are heard. No organomegaly noted. EXTREMITIES: 2+ peripheral pulses with no evidence of peripheral edema and no calf tenderness noted. NEUROLOGIC patient is awake, alert and oriented x3, short term memory loss. . Results 07/05/18 19:06 07/05/18 12:39 Cardiac Enzymes 07/05/18 07/05/18 07/05/18 Range/Units 12:39 12:39 20:00 AST 26 (14-36) U/L CK-MB (CK-2) 3.9 H 4.5 H (0.0-2.4) ng/mL Troponin I 1.370 H* 1.160 H* (0.000-0.034) ng/mL 07/06/18 Range/Units 00:47 AST (14-36) U/L CK-MB (CK-2) 4.5 H (0.0-2.4) ng/mL Troponin I 1.060 H* (0.000-0.034) ng/mL Coagulation 07/05/18 Range/Units 12:39 PT 12.2 H (9.0-12.0) sec APTT 24.6 (22.0-30.0) sec Lipids 07/05/18 Range/Units 12:39 Triglycerides 109 (<150) mg/dL Cholesterol 114 (<200) mg/dL HDL Cholesterol 51 (40-60) mg/dL CBC 07/05/18 07/05/18 Range/Units 12:39 19:06 WBC 12.3 H 11.2 H (3.8-10.6) k/uL RBC 2.65 L 3.48 L (3.80-5.40) m/uL Hgb 7.0 L D 9.4 L D (11.4-16.0) gm/dL Hct 23.2 L 29.7 L (34.0-46.0) % Plt Count 392 367 (150-450) k/uL Comprehensive Metabolic Panel 07/05/18 Range/Units 12:39 Sodium 134 L (137-145) mmol/L Potassium 5.2 H (3.5-5.1) mmol/L Chloride 104 (98-107) mmol/L Carbon Dioxide 17 L (22-30) mmol/L BUN 38 H (7-17) mg/dL Creatinine 1.73 H (0.52-1.04) mg/dL Glucose 125 H (74-99) mg/dL Calcium 8.4 (8.4-10.2) mg/dL AST 26 (14-36) U/L ALT 29 (9-52) U/L Alkaline Phosphatase 32 L (38-126) U/L Total Protein 5.7 L (6.3-8.2) g/dL Albumin 3.2 L (3.5-5.0) g/dL Current Medications Generic Name Dose Route Start Last Admin Trade Name Freq PRN Reason Stop Dose Admin Atorvastatin Calcium 10 mg 07/06/18 21:00 Lipitor PO HS GENNY Diltiazem HCl 50 mg/ Sodium 50 mls @ 5 mls/hr 07/05/18 20:15 07/06/18 09:35 Chloride IV 15 mg/hr .Q10H GENNY 15 mls/hr Administration 5 MG/HR Sodium Chloride 1,000 mls @ 75 mls/hr 07/06/18 12:00 Saline 0.9% IV .[id number] GENNY Nitroglycerin 0.4 mg 07/05/18 13:59 Nitrostat SUBLINGUAL Q5M PRN Chest Pain Pantoprazole Sodium 40 mg 07/05/18 21:00 07/06/18 09:35 Protonix IVP 40 mg BID GENNY Administration Polyethylene Glycol 17 gm 07/07/18 09:00 Miralax PO DAILY GENNY Tramadol HCl 50 mg 07/06/18 11:46 Ultram PO Q6HR PRN Moderate Pain Intake and Output 07/05/18 07/06/1807/06/18 22:59 06:59 14:59 Intake Total 316.667 93.333 47.25 Balance 316.667 93.333 47.25 Intake: Intake, IV Titration 6.667 93.333 47.25 Amount Diltiazem 50 mg In Sodium 6.667 93.333 47.25 Chloride 0.9% 40 ml @ 5 MG/HR 5 mls/hr IV .Q10H [facility] Rx#:[id number] Blood Product 310 Rc As-1 Unit 310 [id number] Other: Voiding Method Bedside Commode Diaper # Voids 1 Weight 65.771 kg 66.8 kg 66.8 kg Patient Weight 07/07/18 06:59 Weight 66.8 kg 07/05/18 19:06 07/05/18 12:39 EKG Interpretations (text) Sinus rhythm with anterior lateral ST-T wave changes Assessment and Plan Assessment: #1 paroxysmal atrial fibrillation with rapid ventricular response #2 anemia #3 recent GI bleed, currently stool for occult blood negative #4 non-ST elevation [place] #5 history of CAD, prior CABG #6 hypertension Plan: From cardiology's perspective, we will maximize medical therapy for now. We will start patient on beta bryan as well as an oral nitrate. Will obtain another 2-D echo with Doppler to assess LV function and for wall motion abnormalities. We will continue to follow the patient right further recommendations according to clinical course and test results. RN MDS note has been reviewed, I agree with a documented findings and plan of care. Patient was seen and examined.
[2018-07-06] MEDS: ISOSORBIDE MONONITRATE ER 30 MG TAB.ER.24H PO SCH (12:14)
[2018-07-06] MEDS ORDERED: METOPROLOL TARTRATE 25 MG TAB PO SCH (12:15)
--- NOTE | 2018-07-06 12:32 | XR ---
EXAMINATION TYPE: XR chest 1V DATE OF EXAM: 07/06/2018 COMPARISON: Prior chest x-ray 07/05/2018 HISTORY: Congestive heart failure TECHNIQUE: Single frontal view of the chest is obtained. FINDINGS: Patient is post median sternotomy. Heart size is stable. There is blunting of the costophr enic angles. No evident pneumothorax. Aorta is dense. Perihilar increased density is again seen. IMPRESSION: Findings are compatible with congestive heart failure, there may be associated effusions , follow-up recommended.
--- NOTE | 2018-07-06 14:42 | P.HPIM ---
History of Present Illness 87-year-old pleasant female came with side compensative for severe lethargy and generalized weakness and found to be in atrial fibrillation patient does have history of A. fib is on labetalol at home presently on Cardizem had a normal ejection fraction the past had history of coronary artery disease patient BNP is elevated but patient does not have any signs or symptoms of congestive heart failure no shortness of breath denied Proximal nocturnal dyspnea ,dizziness, palpitations. Patient denied any fever chills. Patient hemoglobin is found to be 7 patient had a recent GI bleed. Although patient denied any blood in the stools or dark stools. At the time of her last discharge her hemoglobin is was 7 patient was on anticoagulation with Xarelto presently which is being held because of this low hemoglobin. Patient's hemoglobin was 9 during her recent discharge on June 26. He is also found to have elevated troponin of 1.060 with worsening creatinine to 1.7 baseline appears to be around 1-1.2 patient will be started on IV fluids will be given monitor blood transfusion because of possible non-ST elevation microinfarction type II from anemia. Although patient denied any chest pain cardiology evaluated the patient. Patient does have leukocytosis denied any fever chills. Denied any dysuria UA is not significant for any infection. Review of Systems REVIEW OF SYSTEMS: CONSTITUTIONAL: Lethargic and fatigue as mentioned above HEENT: No recent visual problems or hearing problems. Denied any sore throat. CARDIOVASCULAR: No chest pain, orthopnea, PND, no palpitations, no syncope. PULMONARY: No shortness of breath, no cough, no hemoptysis. GASTROINTESTINAL: No diarrhea, no nausea, no vomiting, no abdominal pain. Normoactive bowel sounds. NEUROLOGICAL: No headaches, no weakness, no numbness. HEMATOLOGICAL: Denies any bleeding or petechiae. GENITOURINARY: Denies any burning micturition, frequency, or urgency. MUSCULOSKELETAL/RHEUMATOLOGICAL: Denies any joint pain, swelling, or any muscle pain. ENDOCRINE: Denies any polyuria or polydipsia. The rest of the 14-point review of systems is negative. Past Medical History Past Medical History: Coronary Artery Disease (CAD), Chest Pain / Angina, Diabetes Mellitus, Hyperlipidemia, Hypertension, Myocardial Infarction ([place]), Syncope Additional Past Medical History / Comment(s): NIDDM type II, vertigo/weakness past 5 years and pt states she has had tests but no one knows why, weakness, gait disturbance, falls, bilateral cataracts. Last Myocardial Infarction Date:: 1995 History of Any Multi-Drug Resistant Organisms: None Reported Past Surgical History: Adenoidectomy, Coronary Bypass/CABG, Heart Catheterization, Orthopedic Surgery, Tonsillectomy Additional Past Surgical History / Comment(s): 3 vessel CABG 1995 in [place], R carotid endartectomy 2015, ORIF L ankle d/t fracture. Past Anesthesia/Blood Transfusion Reactions: No Reported Reaction Past Psychological History: No Psychological Hx Reported Additional Psychological History / Comment(s): Pt resides alone in an apartment with her daughter living down the hallway. She has a walker but does not use it , pt states she is going to start using it. She no longer drives, her son takes her to appointments. Smoking Status: Former smoker Past Alcohol Use History: None Reported Additional Past Alcohol Use History / Comment(s): Pt started smoking in 1949 and quit in 2015. Past Drug Use History: None Reported Additional Drug Use History / Comment(s): Patient smoked for 60+ years. Quit in 2015 - Past Family History Mother Family Medical History: No Reported History Father Family Medical History: No Reported History Son(s) Family Medical History: Cancer Additional Family Medical History / Comment(s): Throat cancer Medications and Allergies Home Medications Medication Instructions Recorded Confirmed Type Cholecalciferol [Vitamin D3] 2,000 unit PO DAILY 09/24/15 07/05/18 History Labetalol [Trandate] 100 mg PO BID #60 tablet 05/27/16 07/05/18 Rx Lisinopril [Zestril] 5 mg PO DAILY tab 05/27/16 07/05/18 Rx Linagliptin [Tradjenta] 5 mg PO DAILY 06/18/18 07/05/18 History Ranitidine HCl [Zantac] 150 mg PO BID 06/18/18 07/05/18 History Rivaroxaban [Xarelto] 15 mg PO HS 06/18/18 07/05/18 History Simvastatin [Zocor] 20 mg PO HS 06/18/18 07/05/18 History amLODIPine [Norvasc] 5 mg PO HS 06/18/18 07/05/18 History traMADol HCL [Ultram] 50 mg PO Q6HR PRN 06/24/18 07/05/18 History Polyethylene Glycol 3350 [Miralax] 17 gm PO DAILY #20 packet 07/03/18 07/05/18 Rx Allergies Allergy/AdvReac Type Severity Reaction Status Date / Time zolpidem [From [facility]] AdvReac Hallucinati Verified 07/05/18 13:08 ons Physical Exam Vitals: Vital Signs Temp Pulse Pulse Resp BP BP Pulse Ox 07/06/18 12:00 98.4 F 111 H 20 100/58 91 L 07/06/18 08:00 98.4 F 100 20 134/65 90 L 07/06/18 04:00 137 H 20 126/58 90 L 07/06/18 01:45 146 H 15 07/05/18 23:50 128 H 133/94 97 07/05/18 23:00 140 H 07/05/18 22:30 133 H 15 123/47 93 L 07/05/18 22:00 128 H 18 111/57 94 L 07/05/18 21:30 137 H 15 124/68 92 L 07/05/18 21:00 135 H 15 126/69 07/05/18 20:30 133 H 21 114/67 88 L 07/05/18 20:00 123 H 23 129/65 94 L 07/05/18 19:38 98.2 F 85 129/65 07/05/18 17:30 68 15 128/54 94 L 07/05/18 16:32 98 F 88 132/51 07/05/18 16:02 98.5 F 78 16 122/52 07/05/18 15:52 98.5 F 71 16 119/51 07/05/18 15:48 98.5 F 66 18 123/43 07/05/18 15:36 98.5 F 146 H 20 143/65 93 L Intake and Output 07/05/18 07/06/18 07/06/18 22:59 06:59 14:59 Intake Total 316.667 93.333 122.25 Balance 316.667 93.333 122.25 Intake: Intake, IV Titration 6.667 93.333 122.25 Amount Diltiazem 50 mg In Sodium 6.667 93.333 47.25 Chloride 0.9% 40 ml @ 5 MG/HR 5 mls/hr IV .Q10H [facility] Rx#:[id number] Sodium Chloride 0.9% 1, 75 000 ml @ 75 mls/hr IV . [id number] [facility] Rx#:[id number] Blood Product 310 Rc As-1 Unit 310 [id number] Other: Voiding Method Bedside Commode Diaper # Voids 1 1 Weight 65.771 kg 66.8 kg 66.8 kg PHYSICAL EXAMINATION: GENERAL: The patient is alert and oriented x3, not in any acute distress. Well developed, well nourished. is presently on 4 L of oxygen is to be fatigued HEENT: Pupils are round and equally reacting to light. EOMI. No scleral icterus. No conjunctival pallor. Normocephalic, atraumatic. No pharyngeal erythema. No thyromegaly. CARDIOVASCULAR: S1 and S2 present. No murmurs, rubs, or gallops. PULMONARY: Chest is clear to auscultation, no wheezing or crackles. ABDOMEN: Soft, nontender, nondistended, normoactive bowel sounds. No palpable organomegaly. MUSCULOSKELETAL: No joint swelling or deformity. EXTREMITIES: No cyanosis, clubbing, or pedal edema. NEUROLOGICAL: Gross neurological examination did not reveal any focal deficits. SKIN: No rashes. Results CBC & Chem 7: 07/05/18 19:06 07/05/18 12:39 Labs: Abnormal Lab Results - Last 24 Hours (Table) 07/05/18 07/05/18 07/05/18 Range/Units 12:39 19:06 20:00 WBC 11.2 H (3.8-10.6) k/uL RBC 3.48 L (3.80-5.40) m/uL Hgb 9.4 L D (11.4-16.0) gm/dL Hct 29.7 L (34.0-46.0) % Neutrophils # 8.7 H (1.3-7.7) k/uL Monocytes # 1.1 H (0-1.0) k/uL POC Glucose (mg/dL) (75-99) mg/dL Total Creatine Kinase 257 H (30-135) U/L CK-MB (CK-2) 4.5 H (0.0-2.4) ng/mL Troponin I 1.160 H* (0.000-0.034) ng/mL Crossmatch See Detail 07/06/18 07/06/18 07/06/18 Range/Units 00:47 06:26 11:51 WBC (3.8-10.6) k/uL RBC (3.80-5.40) m/uL Hgb (11.4-16.0) gm/dL Hct (34.0-46.0) % Neutrophils # (1.3-7.7) k/uL Monocytes # (0-1.0) k/uL POC Glucose (mg/dL) 109 H 118 H (75-99) mg/dL Total Creatine Kinase 261 H (30-135) U/L CK-MB (CK-2) 4.5 H (0.0-2.4) ng/mL Troponin I 1.060 H* (0.000-0.034) ng/mL Crossmatch Thrombosis Risk Factor Assmnt - Choose All That Apply Any of the Below Risk Factors Present?: Yes Each Factor Represents 1 point: Medical pt on bed rest, Obesity (BMI >25) Other Risk Factors: Yes Each Risk Factor Represents 3 Points: Age 75 years or older Other congenital or acquired thrombophilia - If yes, enter type in comment: No Thrombosis Risk Factor Assessment Total Risk Factor Score: 5 Thrombosis Risk Factor Assessment Level: High Risk Assessment and Plan Plan: -Severe lethargy and shortness of breath: Secondary to severe anemia patient will will transfuse 1 unit of PRBC because of her shortness of breath atrial fibrillation non-ST elevation myocardial infarction which is type II. I do not believe patient has acute blood loss anemia patient does not have any evidence of a acute GI bleed at this time. may have subacute bleed gastroneurology was consulted -Atrial fibrillation: With rapid unclear rate: Patient is on Cardizem normal ejection fraction the past cardiology evaluated the patient hold off on for anti -correlation because of severe anemia -Non-ST elevation myocardial infarction type II: Secondary to anemia further management as per cardiology -Leukocytosis reactive without any signs or symptoms of infection -Hyperkalemia: Lisinopril is being held Hyponatremia hypovolemic hyponatremia IV fluids as mentioned above -Acute renal failure on chronic kidney disease stage II acute renal failure secondary to prerenal azotemia expected to improve blood transfusion and IV fluids. Kl -Type 2 diabetes mellitus patient with sliding scale insulin hold off oral hypoglycemic agents -Hypertension -Coronary artery disease
[2018-07-06] MEDS ORDERED: FUROSEMIDE 10 MG/ML 4 ML VIAL IV STA (16:11)
[2018-07-06] MEDS: METOPROLOL TARTRATE 25 MG TAB PO SCH ×2 (16:26→20:36)
--- NOTE | 2018-07-06 16:41 | P.CONS ---
History of Present Illness - Reason for Consult Consult date: 07/06/18 anemia possibel GI bleed Requesting physician: Milagros Barth - Chief Complaint weakness - History of Present Illness 87 y/o PMH PAF maintained on Xarelto. CABG, HTN, DM, CKD, hepatic steatosis, RCEA, cholecystectomy, and hyperlipidemia. Presents earlier this month with reports of painless rectal bleeding maroon red colored BMs. EGD/colonoscopy was performed on 06/26/18; EGD normal. 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 Discharge hemoglobin was 8.1. Seen twice in the ER this past week once for constipation the other for taking too many Tramadol. Admitted yesterday with reports of weakness, atrial fibrillation RVR. Denies overt bleeding such as hematemesis hematochezia or melena. No F/C. Admission HGB 7.0 transfused 1 unit presently 9.4. (Hemoglobin 9.1 on 07/03/18). FOBT negative. Denies abdominal pain. Troponin 0.3-1.1. Review of Systems Constitutional: Denies fever, chills, sweats, weight gain, or loss. Admitted with weakness. HEENT: Negative for migraines, blurred vision or loss, earaches, drainage, tinnitus, oral mucosal lesions, dysphagia, or odynophagia. CARDIAC: Negative for chest pain, arrhythmias, or palpitation. RESPIRATORY: Negative for shortness of breath, hemoptysis, cough, or sputum production. GI: See HPI for pertinent findings. : Negative for hematuria, urgency, frequency, polyuria, or dysuria. GYNc: Negative vaginal discharge. MUSCULOSKELETAL: Negative for muscle aches, swelling, arthritis, and arthralgias. NEUROLOGIC: Negative for stroke or TIA. ENDOCRINE: Negative for thyroid problems. SKIN: Negative for rash or itching. PSYCHIATRIC: Negative history for depression and anxiety Past Medical History Past Medical History: Coronary Artery Disease (CAD), Chest Pain / Angina, Diabetes Mellitus, Hyperlipidemia, Hypertension, Myocardial Infarction ([place]), Syncope Additional Past Medical History / Comment(s): NIDDM type II, vertigo/weakness past 5 years and pt states she has had tests but no one knows why, weakness, gait disturbance, falls, bilateral cataracts. Last Myocardial Infarction Date:: 1995 History of Any Multi-Drug Resistant Organisms: None Reported Past Surgical History: Adenoidectomy, Coronary Bypass/CABG, Heart Catheterization, Orthopedic Surgery, Tonsillectomy Additional Past Surgical History / Comment(s): 3 vessel CABG 1995 in [place], R carotid endartectomy 2015, ORIF L ankle d/t fracture. Past Anesthesia/Blood Transfusion Reactions: No Reported Reaction Past Psychological History: No Psychological Hx Reported Additional Psychological History / Comment(s): Pt resides alone in an apartment with her daughter living down the hallway. She has a walker but does not use it , pt states she is going to start using it. She no longer drives, her son takes her to appointments. Smoking Status: Former smoker Past Alcohol Use History: None Reported Additional Past Alcohol Use History / Comment(s): Pt started smoking in 1949 and quit in 2015. Past Drug Use History: None Reported Additional Drug Use History / Comment(s): Patient smoked for 60+ years. Quit in 2015 - Past Family History Mother Family Medical History: No Reported History Father Family Medical History: No Reported History Son(s) Family Medical History: Cancer Additional Family Medical History / Comment(s): Throat cancer Medications and Allergies Home Medications Medication Instructions Recorded Confirmed Type Cholecalciferol [Vitamin D3] 2,000 unit PO DAILY 09/24/15 07/05/18 History Labetalol [Trandate] 100 mg PO BID #60 tablet 05/27/16 07/05/18 Rx Lisinopril [Zestril] 5 mg PO DAILY tab 05/27/16 07/05/18 Rx Linagliptin [Tradjenta] 5 mg PO DAILY 06/18/18 07/05/18 History Ranitidine HCl [Zantac] 150 mg PO BID 06/18/18 07/05/18 History Rivaroxaban [Xarelto] 15 mg PO HS 06/18/18 07/05/18 History Simvastatin [Zocor] 20 mg PO HS 06/18/18 07/05/18 History amLODIPine [Norvasc] 5 mg PO HS 06/18/18 07/05/18 History traMADol HCL [Ultram] 50 mg PO Q6HR PRN 06/24/18 07/05/18 History Polyethylene Glycol 3350 [Miralax] 17 gm PO DAILY #20 packet 07/03/18 07/05/18 Rx Allergies Allergy/AdvReac Type Severity Reaction Status Date / Time [facility]pidem [facility] AdvReac Hallucinati Verified 07/05/18 13:08 ons Physical Exam Vitals: Vital Signs Temp Pulse Pulse Resp BP BP Pulse Ox 07/06/18 08:00 98.4 F 100 20 134/65 90 L 07/06/18 04:00 137 H 20 126/58 90 L 07/06/18 01:45 146 H 15 07/05/18 23:50 128 H 133/94 97 07/05/18 23:00 140 H 07/05/18 22:30 133 H 15 123/47 93 L 07/05/18 22:00 128 H 18 111/57 94 L 07/05/18 21:30 137 H 15 124/68 92 L 07/05/18 21:00 135 H 15 126/69 07/05/18 20:30 133 H 21 114/67 88 L 07/05/18 20:00 123 H 23 129/65 94 L 07/05/18 19:38 98.2 F 85 129/65 07/05/18 17:30 68 15 128/54 94 L 07/05/18 16:32 98 F 88 132/51 07/05/18 16:02 98.5 F 78 16 122/52 07/05/18 15:52 98.5 F 71 16 119/51 07/05/18 15:48 98.5 F 66 18 123/43 07/05/18 15:36 98.5 F 146 H 20 143/65 93 L 07/05/18 14:30 67 16 117/51 07/05/18 13:30 71 12 112/54 91 L 07/05/18 13:20 71 19 112/54 94 L 07/05/18 13:10 112/54 07/05/18 13:00 70 10 L 125/52 92 L 07/05/18 12:50 77 28 H 125/52 93 L 07/05/18 12:40 75 125/52 92 L 07/05/18 12:30 88 L 07/05/18 12:26 80 L 07/05/18 12:23 97.9 F 71 14 125/52 88 L Intake and Output 07/05/18 07/06/18 07/06/18 22:59 06:59 14:59 Intake Total 316.667 93.333 47.25 Balance 316.667 93.333 47.25 Intake: Intake, IV Titration 6.667 93.333 47.25 Amount Diltiazem 50 mg In Sodium 6.667 93.333 47.25 Chloride 0.9% 40 ml @ 5 MG/HR 5 mls/hr IV .Q10H [facility] Rx#:[id number] Blood Product 310 Rc As-1 Unit 310 [id number] Other: Voiding Method Bedside Commode Diaper # Voids 1 Weight 65.771 kg 66.8 kg 66.8 kg - Constitutional General appearance: average body habitus - EENT Eyes: normal appearance Ears: bilateral: normal - Neck Neck: normal ROM - Respiratory Respiratory: bilateral: CTA - Cardiovascular Heart sounds: normal: S1, S2 - Gastrointestinal General gastrointestinal: soft - Neurologic Neurologic: CNII-XII intact - Musculoskeletal Musculoskeletal: strength equal bilaterally - Psychiatric Psychiatric: A&O x's 3 Results CBC & Chem 7: 07/05/18 19:06 07/05/18 12:39 Labs: Abnormal Lab Results - Last 24 Hours (Table) 07/05/18 07/05/18 07/05/18 Range/Units 12:39 12:39 12:39 WBC 12.3 H (3.8-10.6) k/uL RBC 2.65 L (3.80-5.40) m/uL Hgb 7.0 L D (11.4-16.0) gm/dL Hct 23.2 L (34.0-46.0) % MCHC 30.3 L (31.0-37.0) g/dL Neutrophils # 10.2 H (1.3-7.7) k/uL Lymphocytes # 0.7 L (1.0-4.8) k/uL Monocytes # (0-1.0) k/uL PT (9.0-12.0) sec INR (<1.2) Sodium 134 L (137-145) mmol/L Potassium 5.2 H (3.5-5.1) mmol/L Carbon Dioxide 17 L (22-30) mmol/L BUN 38 H (7-17) mg/dL Creatinine 1.73 H (0.52-1.04) mg/dL Glucose 125 H (74-99) mg/dL POC Glucose (mg/dL) (75-99) mg/dL Phosphorus 4.6 H (2.5-4.5) mg/dL Alkaline Phosphatase 32 L (38-126) U/L Total Creatine Kinase 230 H (30-135) U/L CK-MB (CK-2) 3.9 H (0.0-2.4) ng/mL Troponin I 1.370 H* (0.000-0.034) ng/mL Total Protein 5.7 L (6.3-8.2) g/dL Albumin 3.2 L (3.5-5.0) g/dL Urine Appearance (Clear) Urine Protein (Negative) Urine Ketones (Negative) Amorphous Sediment (None) /hpf Urine Mucus (None) /hpf Crossmatch 07/05/18 07/05/18 07/05/18 Range/Units 12:39 12:39 13:00 WBC (3.8-10.6) k/uL RBC (3.80-5.40) m/uL Hgb (11.4-16.0) gm/dL Hct (34.0-46.0) % MCHC (31.0-37.0) g/dL Neutrophils # (1.3-7.7) k/uL Lymphocytes # (1.0-4.8) k/uL Monocytes # (0-1.0) k/uL PT 12.2 H (9.0-12.0) sec INR 1.3 H (<1.2) Sodium (137-145) mmol/L Potassium (3.5-5.1) mmol/L Carbon Dioxide (22-30) mmol/L BUN (7-17) mg/dL Creatinine (0.52-1.04) mg/dL Glucose (74-99) mg/dL POC Glucose (mg/dL) (75-99) mg/dL Phosphorus (2.5-4.5) mg/dL Alkaline Phosphatase (38-126) U/L Total Creatine Kinase (30-135) U/L CK-MB (CK-2) (0.0-2.4) ng/mL Troponin I (0.000-0.034) ng/mL Total Protein (6.3-8.2) g/dL Albumin (3.5-5.0) g/dL Urine Appearance Cloudy H (Clear) Urine Protein 1+ H (Negative) Urine Ketones 1+ H (Negative) Amorphous Sediment Rare H (None) /hpf Urine Mucus Rare H (None) /hpf Crossmatch See Detail 07/05/18 07/05/18 07/06/18 Range/Units 19:06 20:00 00:47 WBC 11.2 H (3.8-10.6) k/uL RBC 3.48 L (3.80-5.40) m/uL Hgb 9.4 L D (11.4-16.0) gm/dL Hct 29.7 L (34.0-46.0) % MCHC (31.0-37.0) g/dL Neutrophils # 8.7 H (1.3-7.7) k/uL Lymphocytes # (1.0-4.8) k/uL Monocytes # 1.1 H (0-1.0) k/uL PT (9.0-12.0) sec INR (<1.2) Sodium (137-145) mmol/L Potassium (3.5-5.1) mmol/L Carbon Dioxide (22-30) mmol/L BUN (7-17) mg/dL Creatinine (0.52-1.04) mg/dL Glucose (74-99) mg/dL POC Glucose (mg/dL) (75-99) mg/dL Phosphorus (2.5-4.5) mg/dL Alkaline Phosphatase (38-126) U/L Total Creatine Kinase 257 H 261 H (30-135) U/L CK-MB (CK-2) 4.5 H 4.5 H (0.0-2.4) ng/mL Troponin I 1.160 H* 1.060 H* (0.000-0.034) ng/mL Total Protein (6.3-8.2) g/dL Albumin (3.5-5.0) g/dL Urine Appearance (Clear) Urine Protein (Negative) Urine Ketones (Negative) Amorphous Sediment (None) /hpf Urine Mucus (None) /hpf Crossmatch 07/06/18 Range/Units 06:26 WBC (3.8-10.6) k/uL RBC (3.80-5.40) m/uL Hgb (11.4-16.0) gm/dL Hct (34.0-46.0) % MCHC (31.0-37.0) g/dL Neutrophils # (1.3-7.7) k/uL Lymphocytes # (1.0-4.8) k/uL Monocytes # (0-1.0) k/uL PT (9.0-12.0) sec INR (<1.2) Sodium (137-145) mmol/L Potassium (3.5-5.1) mmol/L Carbon Dioxide (22-30) mmol/L BUN (7-17) mg/dL Creatinine (0.52-1.04) mg/dL Glucose (74-99) mg/dL POC Glucose (mg/dL) 109 H (75-99) mg/dL Phosphorus (2.5-4.5) mg/dL Alkaline Phosphatase (38-126) U/L Total Creatine Kinase (30-135) U/L CK-MB (CK-2) (0.0-2.4) ng/mL Troponin I (0.000-0.034) ng/mL Total Protein (6.3-8.2) g/dL Albumin (3.5-5.0) g/dL Urine Appearance (Clear) Urine Protein (Negative) Urine Ketones (Negative) Amorphous Sediment (None) /hpf Urine Mucus (None) /hpf Crossmatch Assessment and Plan (1) Anemia Narrative/Plan: 87 y/o female admitted with weakness symptomatic anemia component of acute blood loss presently without overt GI bleeding recent GI bleed s/p EGD colonoscopy with 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 FOBT negative. Current Visit: Yes Status: Acute Code(s): D64.9 - ANEMIA, UNSPECIFIED SNOMED Code(s): 309277094 (2) Paroxysmal A-fib Current Visit: No Status: Acute Code(s): I48.0 - PAROXYSMAL ATRIAL FIBRILLATION SNOMED Code(s): 857254810 (3) NSTEMI (non-ST elevated myocardial infarction) Narrative/Plan: Elevated troponin; cardiology following Current Visit: Yes Status: Acute Code(s): I21.4 - NON-ST ELEVATION (NSTEMI) MYOCARDIAL INFARCTION SNOMED Code(s): 485652900 Plan: 1. Light diet. Repeat endoscopic exams not planned at this time unless patient develops active GI bleed. 2. CBC monitoring. 3. Anticoagulation on hold. Thank you for this kind referral and the opportunity to participate in the care of your patient. This consultation was discussed with Dr. Brenner. The impression and plan of care have been directed as dictated.
[2018-07-06 16:46] LABS: Glucose,Whole Blood 201 mg/dL (75-99)
--- NOTE | 2018-07-06 18:24 | ECHOF ---
Referral Reason:NSTEMI MEASUREMENTS -------- HEIGHT: 160.0 cm WEIGHT: 66.7 kg BP: 134/65 IVSd: 1.4 cm (0.6 - 1.1) LVIDd: 3.6 cm (3.9 - 5.3) LVPWd: 1.3 cm (0.6 - 1.1) IVSs: 1.9 cm LVIDs: 2.1 cm LVPWs: 2.0 cm Ao Diam: 2.2 cm (2.0 - 3.7) LA Diam: 3.7 cm (2.7 - 3.8) AV Cusp: 1.3 cm (1.5 - 2.6) AV maxP.99 mmHg AV meanP.31 mmHg RAP: 5.00 mmHg RVSP: 28.81 mmHg FINDINGS -------- Resting tachycardia (HR>100bpm). This was a technically difficult study with suboptimal views. The left ventricular size is normal. There is mild concentric left ventricular hypertrophy. Overa ll left ventricular systolic function is mildly impaired with, an EF between 45 - 50 %. There is pa radoxical/dysynergic septal motion consistent with post-operative status. Basal inferior LV wall mo tion is hypokinetic. Basal inferoseptal LV wall motion is hypokinetic. The right ventricle is normal in size and function. The left atrium is normal in size. The right atrium is normal in size. Aortic valve is trileaflet and is mildly thickened. There is mild aortic valve sclerosis without st enosis. Mild mitral regurgitation is present. Mild tricuspid regurgitation present. The right ventricular systolic pressure, as measured by Doppl er, is 28.81mmHg. Pulmonic valve appears structurally normal. The aortic root size is normal. The pericardium is normal. Lumason used CONCLUSIONS -------- 1. Resting tachycardia (HR>100bpm). 2. This was a technically difficult study with suboptimal views. 3. The left ventricular size is normal. 4. There is mild concentric left ventricular hypertrophy. 5. Overall left ventricular systolic function is mildly impaired with, an EF between 45 - 50 %. 6. There is paradoxical/dysynergic septal motion consistent with post-operative status. 7. Basal inferior LV wall motion is hypokinetic. 8. Basal inferoseptal LV wall motion is hypokinetic. 9. The right ventricle is normal in size and function. 10. The left atrium is normal in size. 11. The right atrium is normal in size. 12. There is mild aortic valve sclerosis without stenosis. 13. Lumason used 14. Aortic valve is trileaflet and is mildly thickened. 15. Mild mitral regurgitation is present. 16. Mild tricuspid regurgitation present. 17. The right ventricular systolic pressure, as measured by Doppler, is 28.81mmHg. 18. Pulmonic valve appears structurally normal. 19. The aortic root size is normal. 20. The pericardium is normal. CUSHION STUFFER: Margaret Ferrer RDCS
[2018-07-06] MEDS: ATORVASTATIN 10 MG TAB PO SCH (20:36)
[2018-07-06 21:05] LABS: Glucose,Whole Blood 220 mg/dL (75-99)
[2018-07-07] MEDS: SODIUM CHLORIDE 0.9% 1,000 ML IV SCH ×2 (02:04→15:12)
[2018-07-07] MEDS ORDERED: FUROSEMIDE 10 MG/ML 4 ML VIAL IV STA (03:29)
[2018-07-07 05:57] LABS: Glucose,Whole Blood 161 mg/dL (75-99)
[2018-07-07 08:08] LABS: HCT 29.6 % (34.0-46.0); HGB 9.4 gm/dL (11.4-16.0); Hypochromasia Moderate; MCH 27.3 pg (25.0-35.0); MCHC 31.7 g/dL (31.0-37.0); MCV 86.2 fL (80.0-100.0); Mean Platelet Volume 7.1; Platelet Count 450 k/uL (150-450); Poikilocytosis Slight; RBC 3.44 m/uL (3.80-5.40); RDW 15.3 % (11.5-15.5); WBC 12.2 k/uL (3.8-10.6)
[2018-07-07 08:44] LABS: Calcium 9.2 mg/dL (8.4-10.2); Magnesium 2.1 mg/dL (1.6-2.3); Potassium 4.3 mmol/L (3.5-5.1)
[2018-07-07] MEDS: PANTOPRAZOLE 40 MG/10 ML VIAL IVP SCH (08:53)
[2018-07-07] MEDS: ISOSORBIDE MONONITRATE ER 30 MG TAB.ER.24H PO SCH (08:53)
[2018-07-07] MEDS: METOPROLOL TARTRATE 25 MG TAB PO SCH ×3 (08:53→21:15)
[2018-07-07] MEDS: POLYETHYLENE GLYCOL 3350 17 GM POWD.PACK PO SCH (08:53)
--- NOTE | 2018-07-07 09:58 | P.PN ---
Subjective Progress Note Date: 07/07/18 Principal diagnosis: anemia 87 year old female admitted with weakness A. fib RVR NSTEMI elevated troponin. No bleeding. Tolerating diet. Denies abdominal pain. Hemoglobin 9.4. Objective - Vital Signs Vital signs: Vital Signs Temp 98.5 F 07/06/18 20:00 Pulse 79 07/07/18 08:30 Resp 20 07/07/18 08:30 BP 189/77 07/07/18 08:30 Pulse Ox 90 L 07/07/18 08:30 Intake & Output 07/06/18 07/07/18 07/07/18 18:59 06:59 18:59 Intake Total 222.25 20.75 Output Total 1800 Balance 222.25 -1779.25 Weight 66.8 kg 64.7 kg Intake: Intake, IV Titration 222.25 20.75 Amount Diltiazem 50 mg In Sodium 147.25 20.75 Chloride 0.9% 40 ml @ 5 MG/HR 5 mls/hr IV .Q10H [facility]NY Rx#:[id number] Sodium Chloride 0.9% 1, 75 000 ml @ 75 mls/hr IV . [id number] GENNY Rx#:[id number] Output: Urine 1800 Other: Voiding Method Bedside Commode Diaper # Voids 1 - Exam General appearance: The patient is alert, oriented, in no acute distress. HET: Head is normocephalic and atraumatic. Pupils are equal and reactive. Oropharynx is clear without lesions. Neck: Supple without lymphadenopathy. Trachea midline. Heart: S1 S2. Lungs: No crackles or wheezes are heard. Abdomen: Soft, nontender, nondistended with bowel sounds. No peritoneal signs. No palpable organomegaly or masses. Extremities: Normal skin color and turgor. No cyanosis, rash, ulceration, clubbing, or edema. Radial and pedal pulses are 2/4 bilaterally. Neurological: No focal deficits. Strength and sensation are grossly intact. - Labs CBC & Chem 7: 07/07/18 07:49 07/07/18 07:49 Labs: Abnormal Lab Results - Last 24 Hours (Table) 07/05/18 07/06/18 07/06/18 Range/Units 12:39 11:51 16:44 WBC (3.8-10.6) k/uL RBC (3.80-5.40) m/uL Hgb (11.4-16.0) gm/dL Hct (34.0-46.0) % BUN (7-17) mg/dL Creatinine (0.52-1.04) mg/dL Glucose (74-99) mg/dL POC Glucose (mg/dL) 118 H 201 H (75-99) mg/dL Crossmatch See Detail 07/06/18 07/07/18 07/07/18 Range/Units 21:04 05:56 07:49 WBC 12.2 H (3.8-10.6) k/uL RBC 3.44 L (3.80-5.40) m/uL Hgb 9.4 L (11.4-16.0) gm/dL Hct 29.6 L (34.0-46.0) % BUN (7-17) mg/dL Creatinine (0.52-1.04) mg/dL Glucose (74-99) mg/dL POC Glucose (mg/dL) 220 H 161 H (75-99) mg/dL Crossmatch 07/07/18 Range/Units 07:49 WBC (3.8-10.6) k/uL RBC (3.80-5.40) m/uL Hgb (11.4-16.0) gm/dL Hct (34.0-46.0) % BUN 36 H (7-17) mg/dL Creatinine 1.47 H (0.52-1.04) mg/dL Glucose 147 H (74-99) mg/dL POC Glucose (mg/dL) (75-99) mg/dL Crossmatch Assessment and Plan (1) Anemia Narrative/Plan: 87 y/o female admitted with weakness symptomatic anemia component of acute blood loss presently without overt GI bleeding recent GI bleed s/p EGD colonoscopy with 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 FOBT negative. Current Visit: Yes Status: Acute Code(s): D64.9 - ANEMIA, UNSPECIFIED SNOMED Code(s): 110940551 (2) Paroxysmal A-fib Current Visit: No Status: Acute Code(s): I48.0 - PAROXYSMAL ATRIAL FIBRILLATION SNOMED Code(s): 987810747 (3) NSTEMI (non-ST elevated myocardial infarction) Narrative/Plan: Elevated troponin; cardiology following Current Visit: Yes Status: Acute Code(s): I21.4 - NON-ST ELEVATION (NSTEMI) MYOCARDIAL INFARCTION SNOMED Code(s): 882636994 Plan: 1. Light diet. Repeat endoscopic exams not planned at this time unless patient develops active GI bleed. 2. CBC monitoring. 3. Anticoagulation on hold. Assessment and plan a care discussed with Dr. Brenner
[2018-07-07 11:55] LABS: Glucose,Whole Blood 223 mg/dL (75-99)
--- NOTE | 2018-07-07 12:16 | P.NPCON ---
History of Present Illness - Reason for Consult acute renal failure - History of Present Illness Reason for consultation: Acute kidney injury History of present illness: Patient is a 87-year-old female seen in renal consultation for acute kidney injury. Creatinine was 1.73 on admission and is 1.47 today. Creatinine in March 2016 was 1. Patient presented to the hospital with generalized weakness. She was noted to be nature fibrillation with RVR which is now better controlled. She is noted to have systolic CHF with ejection fraction of 45-50% . Chest x-ray showed interstitial edema for which she received 2 doses of IV Lasix 40 mg yesterday. Her dyspnea is improved. Does have history of diabetes mellitus. No vomiting or diarrhea. Oral intake is fair. Admits to good urine output. No hematuria or dysuria. Denies use of NSAIDs. No fever or chills. Vital signs are stable. General: The patient appeared well nourished and normally developed. HEENT: Head exam is unremarkable. Neck is without jugular venous distension. LUNGS: Lungs are clear to auscultation and percussion. Breath sounds decreased. HEART: Rate and Rhythm are regular. First and second heart sounds normal. No murmurs, rubs or gallops. ABDOMEN: Abdominal exam reveals normal bowel sounds. Non-tender and non- distended. No evidence of peritonitis. EXTREMITITES: No clubbing, cyanosis, or edema. Past Medical History Past Medical History: Coronary Artery Disease (CAD), Chest Pain / Angina, Diabetes Mellitus, Hyperlipidemia, Hypertension, Myocardial Infarction (LA), Syncope Additional Past Medical History / Comment(s): NIDDM type II, vertigo/weakness past 5 years and pt states she has had tests but no one knows why, weakness, gait disturbance, falls, bilateral cataracts. Last Myocardial Infarction Date:: 1995 History of Any Multi-Drug Resistant Organisms: None Reported Past Surgical History: Adenoidectomy, Coronary Bypass/CABG, Heart Catheterization, Orthopedic Surgery, Tonsillectomy Additional Past Surgical History / Comment(s): 3 vessel CABG 1995 in [place], R carotid endartectomy 2015, ORIF L ankle d/t fracture. Past Anesthesia/Blood Transfusion Reactions: No Reported Reaction Past Psychological History: No Psychological Hx Reported Additional Psychological History / Comment(s): Pt resides alone in an apartment with her daughter living down the hallway. She has a walker but does not use it , pt states she is going to start using it. She no longer drives, her son takes her to appointments. Smoking Status: Former smoker Past Alcohol Use History: None Reported Additional Past Alcohol Use History / Comment(s): Pt started smoking in 1949 and quit in 2015. Past Drug Use History: None Reported Additional Drug Use History / Comment(s): Patient smoked for 60+ years. Quit in 2015 - Past Family History Mother Family Medical History: No Reported History Father Family Medical History: No Reported History Son(s) Family Medical History: Cancer Additional Family Medical History / Comment(s): Throat cancer Medications and Allergies Home Medications Medication Instructions Recorded Confirmed Type Cholecalciferol [Vitamin D3] 2,000 unit PO DAILY 09/24/15 07/05/18 History Labetalol [Trandate] 100 mg PO BID #60 tablet 05/27/16 07/05/18 Rx Lisinopril [Zestril] 5 mg PO DAILY tab 05/27/16 07/05/18 Rx Linagliptin [Tradjenta] 5 mg PO DAILY 06/18/18 07/05/18 History Ranitidine HCl [Zantac] 150 mg PO BID 06/18/18 07/05/18 History Rivaroxaban [Xarelto] 15 mg PO HS 06/18/18 07/05/18 History Simvastatin [Zocor] 20 mg PO HS 06/18/18 07/05/18 History amLODIPine [Norvasc] 5 mg PO HS 06/18/18 07/05/18 History traMADol HCL [Ultram] 50 mg PO Q6HR PRN 06/24/18 07/05/18 History Polyethylene Glycol 3350 [Miralax] 17 gm PO DAILY #20 packet 07/03/18 07/05/18 Rx Allergies Allergy/AdvReac Type Severity Reaction Status Date / Time zolpidem [From Ambien] AdvReac Hallucinati Verified 07/05/18 13:08 ons Physical Exam Vitals: Vital Signs Temp Pulse Pulse Resp BP Pulse Ox 07/07/18 12:00 98.3 F 78 20 158/68 96 07/07/18 08:30 79 20 189/77 90 L 07/07/18 03:32 73 24 152/68 88 L 07/06/18 23:53 69 22 131/60 90 L 07/06/18 20:00 98.5 F 141 H 20 109/58 90 L 07/06/18 16:00 98.5 F 133 H 135 H 20 111/55 93 L 07/06/18 13:59 88 L Intake and Output 07/06/18 07/07/18 07/07/18 22:59 06:59 14:59 Intake Total 70.75 250 Output Total 1200 600 600 Balance -1129.25 -600 -350 Intake: Intake, IV Titration 70.75 Amount Diltiazem 50 mg In Sodium 70.75 Chloride 0.9% 40 ml @ 5 MG/HR 5 mls/hr IV .Q10H [facility] Rx#:[id number] Oral 250 Output: Urine 1200 600 600 Other: Voiding Method Bedside Commode Diaper # Voids 1 Weight 64.7 kg Results - Lab Results Most recent lab results Calcium 9.2 mg/dL (8.4-10.2) 07/07/18 07:49 Phosphorus 4.6 mg/dL (2.5-4.5) H 07/05/18 12:39 Magnesium 2.1 mg/dL (1.6-2.3) 07/07/18 07:49 07/07/18 07:49 07/07/18 07:49 Assessment and Plan Plan: Assessment: 1. Nonoliguric acute kidney injury mostly prerenal secondary to hemodynamic instability. Also component of cardiorenal syndrome. Renal function improving with creatinine down to 1.47 today. 2. Rule out chronic kidney disease. She does have proteinuria on UA which is likely from underlying diabetic kidney disease. 3. Anemia. Rule out iron deficiency. 4. Systolic CHF with ejection fraction of 45-50%. 5. Volume overload. Improved with diuresis. 6. Atrial fibrillation with RVR. Now rate controlled. 7. Diabetes mellitus. 8. Hypertension with chronic kidney disease. Plan: Hold off on diuretics today. Resume amlodipine. Check iron studies. Avoid nephrotoxins. Check chest x-ray tomorrow. Repeat electrolytes in the morning. Check renal uls. Thank you for the consultation. I will continue to follow the patient with you during her hospital stay.
--- NOTE | 2018-07-07 14:10 | P.PN ---
Subjective Progress Note Date: 07/07/18 This is a pleasant 87-year-old female patient with a past medical history significant for paroxysmal atrial fibrillation, on long-term anticoagulation, CAD status post bypass grafting with FRIEDMAN to the LAD and PLV RCA 1995, dyslipidemia, carotid artery disease status post endarterectomy, hypertension, diabetes, and recent GI bleed. She follows in the office with Dr. Colin. For this admission, patient comes in with complaints of overall weakness. He denies having any symptoms of abdominal pain, chest discomfort, shortness of breath, dizziness or palpitations. Upon presentation, patient was found to be anemic with hemoglobin of 7.0. Stool was negative for occult blood. She denies any bleeding. Patient was also found to have abnormal troponins at 0.37, 1.16 and 1.06. She did receive one unit of packed red cells and hemoglobin this morning is 9.4. BUN and creatinine are elevated at 38 and 1.73. Most recent echocardiogram from 06/25/2018 shows an ejection fraction of 55-60% with mild left ear and mild MR. Chest x-ray shows only mild cardiomegaly. She was also found to be in atrial fibrillation with rapid ventricular response and started on a Cardizem drip. EKG on admission showed sinus rhythm with anterior lateral ST-T wave changes. Echocardiogram showed resting tachycardia with mild concentric left ventricular hypertrophy, mildly impaired LV systolic function with an ejection fraction between 45-50%, basal inferior LV wall motion hypokinesis and basal inferoseptal LV wall hypokinesis. With mild aortic valve sclerosis without stenosis, mild mitral regurgitation and mild tricuspid regurgitation. Patient does not wish to pursue any invasive testing at this time she is a good candidate for invasive testing secondary to recurrent anemia and acute renal failure. Upon examination, patient is resting comfortably in a chair. Overall she is feeling quite a bit better today. She does not feel as weak as she did yesterday. She denies complaints of chest discomfort or shortness of breath. Cardizem drip was discontinued yesterday and patient has been on metoprolol tartrate 25 mg by mouth 3 times a day. Objective - Vital Signs Vital signs: Vital Signs Temp 98.3 F 07/07/18 12:00 Pulse 78 07/07/18 12:00 Resp 20 07/07/18 12:00 BP 158/68 07/07/18 12:00 Pulse Ox 96 10/16/18 12:00 Intake & Output 07/06/18 07/07/18 07/07/18 18:59 06:59 18:59 Intake Total 222.25 20.75 250 Output Total 1800 600 Balance 222.25 -1779.25 -350 Weight 66.8 kg 64.7 kg Intake: Intake, IV Titration 222.25 20.75 Amount Diltiazem 50 mg In Sodium 147.25 20.75 Chloride 0.9% 40 ml @ 5 MG/HR 5 mls/hr IV .Q10H [facility] Rx#:[id number] Sodium Chloride 0.9% 1, 75 000 ml @ 75 mls/hr IV . [id number] [facility] Rx#:[id number] Oral 250 Output: Urine 1800 600 Other: Voiding Method Bedside Commode Diaper # Voids 1 1 - Exam PHYSICAL EXAMINATION: HEENT: Head is atraumatic, normocephalic. Pupils equal, round. Neck is supple. There is no elevated jugular venous pressure. HEART EXAMINATION: Heart sounds irregularly irregular, S1 and S2 with systolic murmur. CHEST EXAMINATION: Lungs are clear to auscultation and precussion. No chest wall tenderness is noted on palpation or with deep breathing. ABDOMEN: Soft, nontender. Bowel sounds are heard. No organomegaly noted. EXTREMITIES: 2+ peripheral pulses with no evidence of peripheral edema and no calf tenderness noted. NEUROLOGIC patient is awake, alert and oriented x3, short term memory loss. - Labs CBC & Chem 7: 07/07/18 07:49 07/07/18 07:49 Labs: Abnormal Lab Results - Last 24 Hours (Table) 07/05/18 07/06/18 07/06/18 Range/Units 12:39 16:44 21:04 WBC (3.8-10.6) k/uL RBC (3.80-5.40) m/uL Hgb (11.4-16.0) gm/dL Hct (34.0-46.0) % BUN (7-17) mg/dL Creatinine (0.52-1.04) mg/dL Glucose (74-99) mg/dL POC Glucose (mg/dL) 201 H 220 H (75-99) mg/dL Crossmatch See Detail 07/07/18 07/07/18 07/07/18 Range/Units 05:56 07:49 07:49 WBC 12.2 H (3.8-10.6) k/uL RBC 3.44 L (3.80-5.40) m/uL Hgb 9.4 L (11.4-16.0) gm/dL Hct 29.6 L (34.0-46.0) % BUN 36 H (7-17) mg/dL Creatinine 1.47 H (0.52-1.04) mg/dL Glucose 147 H (74-99) mg/dL POC Glucose (mg/dL) 161 H (75-99) mg/dL Crossmatch 07/07/18 Range/Units 11:42 WBC (3.8-10.6) k/uL RBC (3.80-5.40) m/uL Hgb (11.4-16.0) gm/dL Hct (34.0-46.0) % BUN (7-17) mg/dL Creatinine (0.52-1.04) mg/dL Glucose (74-99) mg/dL POC Glucose (mg/dL) 223 H (75-99) mg/dL Crossmatch Assessment and Plan Assessment: #1 paroxysmal atrial fibrillation with rapid ventricular response #2 anemia #3 recent GI bleed, currently stool for occult blood negative #4 non-ST elevation [place] #5 history of CAD, prior CABG #6 hypertension Plan: From cardiology's perspective, we will maximize medical therapy. Indications were reviewed and we'll continue the same. No invasive workup at this time. We will continue to follow the patient provide further recommendations accordingly. [employer] note has been reviewed, I agree with a documented findings and plan of care. Patient was seen and examined.
[2018-07-07] MEDS: amLODIPine 5 MG TAB PO SCH (15:11)
--- NOTE | 2018-07-07 16:20 | US ---
EXAMINATION TYPE: US kidneys/renal and bladder DATE OF EXAM: 07/07/2018 COMPARISON: CT & US 2014 CLINICAL HISTORY: celestino. EXAM MEASUREMENTS: Right Kidney: 7.8 x 4.6 x 4.9 cm Left Kidney: 9.4 x 4.8 x 4.7 cm Right Kidney: No hydronephrosis or masses seen Left Kidney: No hydronephrosis or masses seen Bladder: wnl Bilateral Jets seen: Yes There is no evidence for hydronephrosis at this point in time. There is mild cortical renal thinning bilaterally. No nephrolithiasis is seen. No masses are identified. The urinary bladder is anechoic . Bilateral ureteral jets are seen. IMPRESSION: Sonographic evidence of medical renal disease with no hydronephrosis or nephrolithiasis.
[2018-07-07 16:43] LABS: Iron Saturation 3.3 (12.00-45.00)
[2018-07-07 17:08] LABS: Glucose,Whole Blood 166 mg/dL (75-99)
--- NOTE | 2018-07-07 17:23 | XR ---
EXAMINATION TYPE: XR chest 2V DATE OF EXAM: 07/07/2018 COMPARISON: 07/06/2018 HISTORY: Heart failure short of breath TECHNIQUE: Frontal and lateral views of the chest are obtained. FINDINGS: There is mild pulmonary interstitial edema. There is slight blunting of the costophrenic a ngles. There are sternal wires. There are chest leads. IMPRESSION: Small pleural effusions and mild heart failure there is slightly worse than yesterday.
[2018-07-07 20:58] LABS: Glucose,Whole Blood 168 mg/dL (75-99)
[2018-07-07] MEDS: PANTOPRAZOLE 40 MG TABLET PO SCH (21:15)
[2018-07-07] MEDS: ATORVASTATIN 10 MG TAB PO SCH (21:15)
[2018-07-08] MEDS: SODIUM CHLORIDE 0.9% 1,000 ML IV SCH ×2 (05:25→17:10)
[2018-07-08 06:22] LABS: Glucose,Whole Blood 127 mg/dL (75-99)
--- NOTE | 2018-07-08 06:56 | XR ---
EXAMINATION TYPE: XR chest 2V DATE OF EXAM: 07/08/2018 COMPARISON: Chest x-ray from yesterday. HISTORY: CHF and difficulty in breathing. TECHNIQUE: Frontal and lateral views of the chest are obtained. FINDINGS: Post-CABG changes with mediastinal clips and sternal wires is redemonstrated. The cardiac silhouette size is stable and enlarged with atherosclerotic thoracic aorta. There are persistent sta ble small to tiny bilateral pleural effusions and mild bilateral interstitial edema. Cholecystectomy clips are noted. The osseous structures remain demineralized. IMPRESSION: Overall stable findings, findings consistent with CHF exacerbation as there is cardiomeg michi with small to tiny bilateral pleural effusions and mild bilateral interstitial edema all redemons trated.
[2018-07-08] MEDS: PANTOPRAZOLE 40 MG TABLET PO SCH ×2 (08:35→21:20)
[2018-07-08] MEDS: POLYETHYLENE GLYCOL 3350 17 GM POWD.PACK PO SCH (08:35)
[2018-07-08] MEDS: ISOSORBIDE MONONITRATE ER 30 MG TAB.ER.24H PO SCH (08:35)
[2018-07-08] MEDS: amLODIPine 5 MG TAB PO SCH (08:35)
[2018-07-08] MEDS: METOPROLOL TARTRATE 25 MG TAB PO SCH ×3 (08:36→21:20)
[2018-07-08 09:50] VITALS: BMI 24.6
[2018-07-08 10:34] LABS: Potassium 4.8 mmol/L (3.5-5.1)
[2018-07-08 11:43] LABS: Glucose,Whole Blood 186 mg/dL (75-99)
--- NOTE | 2018-07-08 11:44 | P.PN ---
Subjective Progress Note Date: 07/08/18 Principal diagnosis: anemia 87 year old female admitted with weakness A. fib RVR NSTEMI elevated troponin. No bleeding. Tolerating diet. Denies abdominal pain. Hemoglobin yesterday 9.4. Objective - Vital Signs Vital signs: Vital Signs Temp 98.4 F 07/08/18 08:00 Pulse 74 07/08/18 08:00 Resp 18 07/08/18 08:00 BP 140/66 07/08/18 08:00 Pulse Ox 95 07/08/18 08:00 Intake & Output 07/07/18 07/08/18 07/08/18 18:59 06:59 18:59 Intake Total 250 120 Output Total 1350 600 Balance -1100 -600 120 Weight 63.1 kg 63.1 kg Intake: Oral 250 120 Output: Urine 1350 600 Other: Voiding Method Bedside Commode Diaper # Voids 1 1 - Exam General appearance: The patient is alert, oriented, in no acute distress. HET: Head is normocephalic and atraumatic. Pupils are equal and reactive. Oropharynx is clear without lesions. Neck: Supple without lymphadenopathy. Trachea midline. Heart: S1 S2. Lungs: No crackles or wheezes are heard. Abdomen: Soft, nontender, nondistended with bowel sounds. No peritoneal signs. No palpable organomegaly or masses. Extremities: Normal skin color and turgor. No cyanosis, rash, ulceration, clubbing, or edema. Radial and pedal pulses are 2/4 bilaterally. Neurological: No focal deficits. Strength and sensation are grossly intact. - Labs CBC & Chem 7: 07/07/18 07:49 07/08/18 07:07 Labs: Abnormal Lab Results - Last 24 Hours (Table) 07/07/18 07/07/18 07/07/18 Range/Units 07:49 11:42 17:06 BUN (7-17) mg/dL Creatinine (0.52-1.04) mg/dL Glucose (74-99) mg/dL POC Glucose (mg/dL) 223 H 166 H (75-99) mg/dL Iron 12 L (50-170) ug/dL Iron Saturation 3.30 L (12.00-45.00) 07/07/18 07/08/18 07/08/18 Range/Units 20:57 06:21 07:07 BUN 30 H (7-17) mg/dL Creatinine 1.26 H (0.52-1.04) mg/dL Glucose 116 H (74-99) mg/dL POC Glucose (mg/dL) 168 H 127 H (75-99) mg/dL Iron (50-170) ug/dL Iron Saturation (12.00-45.00) Assessment and Plan (1) Anemia Narrative/Plan: 87 y/o female admitted with weakness symptomatic anemia component of acute blood loss presently without overt GI bleeding recent GI bleed s/p EGD colonoscopy with 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 FOBT negative. Current Visit: Yes Status: Acute Code(s): D64.9 - ANEMIA, UNSPECIFIED SNOMED Code(s): 912161254 (2) Paroxysmal A-fib Current Visit: No Status: Acute Code(s): I48.0 - PAROXYSMAL ATRIAL FIBRILLATION SNOMED Code(s): 879036184 (3) NSTEMI (non-ST elevated myocardial infarction) Narrative/Plan: Elevated troponin; cardiology following Current Visit: Yes Status: Acute Code(s): I21.4 - NON-ST ELEVATION (NSTEMI) MYOCARDIAL INFARCTION SNOMED Code(s): 186116032 Plan: 1. Light diet. Repeat endoscopic exams not planned at this time. Agreeable for discharge per medicine and cardiology. Discharge planning [facility] today to [facility]. 2. CBC monitoring in the outpatient setting. 3. We'll defer to anticoagulation medicine cardiology presently on hold. Assessment and plan a care discussed with Dr. Brenner
--- NOTE | 2018-07-08 12:52 | P.PN ---
Subjective Patient is seen in follow-up for acute kidney injury on chronic kidney disease. Renal function is improving with creatinine down to 1.26 today. Patient had oxygen desaturation with ambulation and is currently on 2 L nasal cannula. Chest x-ray suggestive of Esker condition. Admits to good urine output. Oral intake is fair. No vomiting or diarrhea. Vital signs are stable. General: The patient appeared well nourished and normally developed. HEENT: Head exam is unremarkable. Neck is without jugular venous distension. LUNGS: Lungs are clear to auscultation and percussion. Breath sounds decreased. HEART: Rate and Rhythm are regular. First and second heart sounds normal. No murmurs, rubs or gallops. ABDOMEN: Abdominal exam reveals normal bowel sounds. Non-tender and non- distended. No evidence of peritonitis. EXTREMITITES: No clubbing, cyanosis, or edema. Objective - Vital Signs Vital signs: Vital Signs Temp 98.4 F 07/08/18 08:00 Pulse 74 07/08/18 08:00 Resp 18 07/08/18 08:00 BP 140/66 07/08/18 08:00 Pulse Ox 95 07/08/18 08:00 Intake & Output 07/07/18 07/08/18 07/08/18 18:59 06:59 18:59 Intake Total 250 120 Output Total 1350 600 300 Balance -1100 -600 -180 Weight 63.1 kg 63.1 kg Intake: Oral 250 120 Output: Urine 1350 600 300 Other: Voiding Method Bedside Commode Diaper # Voids 1 1 - Labs CBC & Chem 7: 07/07/18 07:49 07/08/18 07:07 Labs: Abnormal Lab Results - Last 24 Hours (Table) 07/07/18 07/07/18 07/07/18 Range/Units 07:49 17:06 20:57 BUN (7-17) mg/dL Creatinine (0.52-1.04) mg/dL Glucose (74-99) mg/dL POC Glucose (mg/dL) 166 H 168 H (75-99) mg/dL Iron 12 L (50-170) ug/dL Iron Saturation 3.30 L (12.00-45.00) 07/08/18 07/08/18 07/08/18 Range/Units 06:21 07:07 11:30 BUN 30 H (7-17) mg/dL Creatinine 1.26 H (0.52-1.04) mg/dL Glucose 116 H (74-99) mg/dL POC Glucose (mg/dL) 127 H 186 H (75-99) mg/dL Iron (50-170) ug/dL Iron Saturation (12.00-45.00) Assessment and Plan Plan: Assessment: 1. Nonoliguric acute kidney injury mostly prerenal secondary to hemodynamic instability. Also component of cardiorenal syndrome. Renal function improving with creatinine down to 1.26 today. No hydronephrosis noted on renal ultrasound. Right kidney appears to be small in size. 2. Rule out chronic kidney disease. She does have proteinuria on UA which is likely from underlying diabetic kidney disease. 3. Anemia. Severe iron deficiency noted. 4. Systolic CHF with ejection fraction of 45-50%. 5. Volume overload. Improved with diuresis. 6. Atrial fibrillation with RVR. Now rate controlled. 7. Diabetes mellitus. 8. Hypertension with chronic kidney disease. Controlled. Plan: Lasix 20 mg IV once today. Start Lasix 20 mg orally once daily starting tomorrow. Avoid nephrotoxins. Anticipated discharge today. Repeat bmp in 2-3 days. Follow up outpatient in the next 1-2 weeks.
[2018-07-08] MEDS ORDERED: FUROSEMIDE 10 MG/ML 2 ML VIAL IV ONE (13:00)
[2018-07-08] MEDS ORDERED: SODIUM FERRIC GLUCONAT-SUCROSE 125 MG in SODIUM CHLORIDE 0.9% 100 ML IVPB SCH (13:00)
--- NOTE | 2018-07-08 15:02 | P.PN ---
Subjective Progress Note Date: 07/08/18 Progress Note Date: 07/08/18 This is a pleasant 87-year-old female patient with a past medical history significant for paroxysmal atrial fibrillation, on long-term anticoagulation, CAD status post bypass grafting with FRIEDMAN to the LAD and PLV RCA 1995, dyslipidemia, carotid artery disease status post endarterectomy, hypertension, diabetes, and recent GI bleed. She follows in the office with Dr. Colin. For this admission, patient comes in with complaints of overall weakness. He denies having any symptoms of abdominal pain, chest discomfort, shortness of breath, dizziness or palpitations. Upon presentation, patient was found to be anemic with hemoglobin of 7.0. Stool was negative for occult blood. She denies any bleeding. Patient was also found to have abnormal troponins at 0.37, 1.16 and 1.06. She did receive one unit of packed red cells and hemoglobin this morning is pending. Sodium 141, potassium 4.8, BUN 30, creatinine 1.2.Most recent echocardiogram from 06/25/2018 shows an ejection fraction of 55-60% with mild left ear and mild MR. Chest x-ray shows only mild cardiomegaly.She was also found to be in atrial fibrillation with rapid ventricular response and started on a Cardizem drip. EKG on admission showed sinus rhythm with anterior lateral ST-T wave changes. Echocardiogram showed resting tachycardia with mild concentric left ventricular hypertrophy, mildly impaired LV systolic function with an ejection fraction between 45-50%, basal inferior LV wall motion hypokinesis and basal inferoseptal LV wall hypokinesis. With mild aortic valve sclerosis without stenosis, mild mitral regurgitation and mild tricuspid regurgitation. Patient does not wish to pursue any invasive testing at this time she is a good candidate for invasive testing secondary to recurrent anemia and acute renal failure. Upon examination, patient is resting comfortably in a chair. Overall she is feeling quite a bit better today. Blood pressure 144/60 with a heart rate in the 70s, 96% on 2 L of oxygen. Objective - Vital Signs Vital signs: Vital Signs Temp 97.8 F 07/08/18 12:00 Pulse 71 07/08/18 12:00 Resp 18 07/08/18 12:00 BP 145/68 07/08/18 12:00 Pulse Ox 96 07/08/18 12:00 Intake & Output 1007/08/18 07/08/18 18:59 06:59 18:59 Intake Total 250 120 Output Total 1350 600 300 Balance -1100 -600 -180 Weight 63.1 kg 63.1 kg Intake: Oral 250 120 Output: Urine 1350 600 300 Other: Voiding Method Bedside Commode Diaper # Voids 1 1 - Exam PHYSICAL EXAMINATION: HEENT: Head is atraumatic, normocephalic. Pupils equal, round. Neck is supple. There is no elevated jugular venous pressure. HEART EXAMINATION: Heart sounds irregularly irregular, S1 and S2 with systolic murmur. CHEST EXAMINATION: Lungs are clear to auscultation and precussion. No chest wall tenderness is noted on palpation or with deep breathing. ABDOMEN: Soft, nontender. Bowel sounds are heard. No organomegaly noted. EXTREMITIES: 2+ peripheral pulses with no evidence of peripheral edema and no calf tenderness noted. NEUROLOGIC patient is awake, alert and oriented x3, short term memory loss. - Labs CBC & Chem 7: 07/07/18 07:49 07/08/18 07:07 Labs: Abnormal Lab Results - Last 24 Hours (Table) 07/07/18 07/07/18 07/07/18 Range/Units 07:49 17:06 20:57 BUN (7-17) mg/dL Creatinine (0.52-1.04) mg/dL Glucose (74-99) mg/dL POC Glucose (mg/dL) 166 H 168 H (75-99) mg/dL Iron 12 L (50-170) ug/dL Iron Saturation 3.30 L (12.00-45.00) 07/08/18 07/08/18 07/08/18 Range/Units 06:21 07:07 11:30 BUN 30 H (7-17) mg/dL Creatinine 1.26 H (0.52-1.04) mg/dL Glucose 116 H (74-99) mg/dL POC Glucose (mg/dL) 127 H 186 H (75-99) mg/dL Iron (50-170) ug/dL Iron Saturation (12.00-45.00) Assessment and Plan Plan: Assessment: #1 paroxysmal atrial fibrillation with rapid ventricular response #2 anemia #3 recent GI bleed, currently stool for occult blood negative #4 non-ST elevation VA #5 history of CAD, prior CABG #6 hypertension Plan From cardiology's perspective, we'll recommend to continue the patient on her current medications. She may be able to be discharged once cleared by primary and follow-up appointment made in the office post discharge. DNP note has been reviewed, I agree with a documented findings and plan of care. Patient was seen and examined.
--- NOTE | 2018-07-08 15:25 | P.DS ---
Providers Date of admission: 07/05/18 13:59 Attending physician: Milagros Barth Consults: 07/05/18 13:59 Consult Physician Urgent Consulting Provider: Bud Vaca Consult Reason/Comments: Elevated troponin Do you want consulting provider notified?: Yes 07/06/18 12:10 Consult Physician Routine Consulting Provider: Amy Mcnair Consult Reason/Comments: Kidney Function. Do you want consulting provider notified?: Yes Primary care physician: [facility] Course: Final diagnoses -Severe lethargy and shortness of breath: Multifactorial ,Secondary to severe symptomatic anemia, status post transfusion of packed RBCs, atrial fibrillation non-ST elevation myocardial infarction which is type II. Doubt acute blood loss anemia, patient does not have any evidence of a acute GI bleed at this time. may have subacute bleed gastroneurology was consulted with no endoscopy recommended at this time. -Paroxysmal Atrial fibrillation: With rapid unclear rate status post Cardizem drip. Anticoagulation as per cardiology -Non-ST elevation myocardial infarction type II: Secondary to anemia, declined invasive testing -Leukocytosis reactive without any signs or symptoms of infection -Hyperkalemia: Lisinopril is being held Hyponatremia hypovolemic hyponatremia resolved with ,IV fluids hydration. -Acute renal failure on chronic kidney disease stage II acute renal failure secondary to prerenal azotemia -Type 2 diabetes mellitus patient -Hypertension -Coronary artery disease Hospital course:87-year-old pleasant female came with side compensative for severe lethargy and generalized weakness and found to be in atrial fibrillation patient does have history of A. fib is on labetalol at home presently on Cardizem had a normal ejection fraction the past had history of coronary artery disease patient BNP is elevated but patient does not have any signs or symptoms of congestive heart failure no shortness of breath denied Proximal nocturnal dyspnea ,dizziness, palpitations. Patient denied any fever chills. Patient hemoglobin is found to be 7 patient had a recent GI bleed. Although patient denied any blood in the stools or dark stools. At the time of her last discharge her hemoglobin is was 7 patient was on anticoagulation with Xarelto presently which is being held because of this low hemoglobin. Patient's hemoglobin was 9 during her recent discharge on June 26. He is also found to have elevated troponin of 1.060 with worsening creatinine to 1.7 baseline appears to be around 1-1.2 patient will be started on IV fluids will be given monitor blood transfusion because of possible non-ST elevation microinfarction type II from anemia. Although patient denied any chest pain cardiology evaluated the patient. Patient does have leukocytosis denied any fever chills. Denied any dysuria UA is not significant for any infection. Evaluated by cardiology, nephrology, GI. Status post Cardizem drip, converted to oral beta bryan. Maintained on IV fluid hydration. Anticoagulation as per cardiology.Significant clinical improvement. Cleared by all consults for discharge. Patient is being discharged to [facility] subacute rehab in a stable condition with guarded prognosis. EXAMINATION: GENERAL: The patient is alert and oriented x3, not in any acute distress. Well developed, well nourished. CARDIOVASCULAR: S1 and S2 present. No murmurs, rubs, or gallops. PULMONARY: Chest is clear to auscultation, no wheezing or crackles. ABDOMEN: Soft, nontender, nondistended, normoactive bowel sounds. No palpable organomegaly. NEUROLOGICAL: Gross neurological examination did not reveal any focal deficits. The impression and plan of care has been dictated as directed. Dr.: I performed a history and examination of this patient, discussed the same with the dictator. I agree with the dictator's note ,documented as a scribe. Any additional findings or plans will be noted. Time taken: 35 minutes Patient Condition at Discharge: Stable Plan - Discharge Summary Discharge Rx Participant: No New Discharge Prescriptions: New Ferrous Sulfate [Iron (65 MG Elemental)] 325 mg PO BID-W/MEALS tab Furosemide [Lasix] 20 mg PO DAILY tab Isosorbide Mononitrate ER [Imdur] 30 mg PO DAILY tab.er.24h Metoprolol Tartrate [Lopressor] 25 mg PO TID tab Nitroglycerin Sl Tabs [Nitrostat] 0.4 mg SUBLINGUAL Q5M PRN tab PRN Reason: Chest Pain Pantoprazole [Protonix] 40 mg PO BID tablet. INSULIN LISPRO (HumaLOG) [humaLOG] 0 unit SQ ACHS #1 vial Continue Cholecalciferol [Vitamin D3] 2,000 unit PO DAILY Labetalol [Trandate] 100 mg PO BID #60 tablet Rivaroxaban [Xarelto] 15 mg PO HS amLODIPine [Norvasc] 5 mg PO HS Simvastatin [Zocor] 20 mg PO HS Linagliptin [Tradjenta] 5 mg PO DAILY traMADol HCL [Ultram] 50 mg PO Q6HR PRN PRN Reason: Pain Polyethylene Glycol 3350 [Miralax] 17 gm PO DAILY #20 packet Discontinued Lisinopril [Zestril] 5 mg PO DAILY tab Ranitidine HCl [Zantac] 150 mg PO BID Discharge Medication List Cholecalciferol [Vitamin D3] 2,000 unit PO DAILY 09/24/15 [History] Labetalol [Trandate] 100 mg PO BID #60 tablet 05/27/16 [Rx] Linagliptin [Tradjenta] 5 mg PO DAILY 06/18/18 [History] Rivaroxaban [Xarelto] 15 mg PO HS 06/18/18 [History] Simvastatin [Zocor] 20 mg PO HS 06/18/18 [History] amLODIPine [Norvasc] 5 mg PO HS 06/18/18 [History] traMADol HCL [Ultram] 50 mg PO Q6HR PRN 06/24/18 [History] Polyethylene Glycol 3350 [Miralax] 17 gm PO DAILY #20 packet 07/03/18 [Rx] Ferrous Sulfate [Iron (65 MG Elemental)] 325 mg PO BID-W/MEALS tab 07/08/18 [Rx ] Furosemide [Lasix] 20 mg PO DAILY tab 07/08/18 [Rx] INSULIN LISPRO (HumaLOG) [humaLOG] 0 unit SQ ACHS #1 vial 07/08/18 [Rx] Isosorbide Mononitrate ER [Imdur] 30 mg PO DAILY tab.er.24h 07/08/18 [Rx] Metoprolol Tartrate [Lopressor] 25 mg PO TID tab 07/08/18 [Rx] Nitroglycerin Sl Tabs [Nitrostat] 0.4 mg SUBLINGUAL Q5M PRN tab 07/08/18 [Rx] Pantoprazole [Protonix] 40 mg PO BID tablet. 07/08/18 [Rx] Follow up Appointment(s)/Referral(s): Bob Morales DO [STAFF PHYSICIAN] - 1 Week Jason Ross DO [Primary Care Provider] - 3 Days (After discharge from subacute rehab) Salvador Ott MD [STAFF PHYSICIAN] - 3 Days (While at subacute rehab) Activity/Diet/Wound Care/Special Instructions: [facility]/anticoagulation as per cardiology. Confirm cardiology follow-up appointment per to discharge Per Dr Morales, pt to go home on 20mg lasix po daily BMP in 2-3 days and follow up in office
[2018-07-08 16:23] LABS: Glucose,Whole Blood 145 mg/dL (75-99)
[2018-07-08] MEDS: FERROUS SULFATE 325 MG TAB PO SCH (17:46)
[2018-07-08 21:18] LABS: Glucose,Whole Blood 183 mg/dL (75-99)
[2018-07-08] MEDS: ATORVASTATIN 10 MG TAB PO SCH (21:20)
[2018-07-09 00:13] VITALS: RESP 16
[2018-07-09] MEDS: SODIUM CHLORIDE 0.9% 1,000 ML IV SCH (06:39)
[2018-07-09] MEDS: FERROUS SULFATE 325 MG TAB PO SCH (06:41)
[2018-07-09] MEDS: METOPROLOL TARTRATE 25 MG TAB PO SCH ×2 (07:06→14:54)
[2018-07-09] MEDS: ISOSORBIDE MONONITRATE ER 30 MG TAB.ER.24H PO SCH (07:51)
[2018-07-09] MEDS: PANTOPRAZOLE 40 MG TABLET PO SCH (07:51)
[2018-07-09] MEDS: amLODIPine 5 MG TAB PO SCH (07:52)
[2018-07-09] MEDS: POLYETHYLENE GLYCOL 3350 17 GM POWD.PACK PO SCH (07:52)
[2018-07-09 07:58] VITALS: PULSE 67; TEMP 98.2
[2018-07-09 08:05] LABS: Calcium 9.2 mg/dL (8.4-10.2); Potassium 4.4 mmol/L (3.5-5.1)
[2018-07-09] MEDS ORDERED: FUROSEMIDE 20 MG TAB PO SCH (09:00)
--- NOTE | 2018-07-09 11:54 | P.PN ---
Subjective Patient is seen in follow-up for acute kidney injury on chronic kidney disease. Renal function is improving with creatinine down to 1.21 today. Admits to good urine output. Oral intake is fair. No vomiting or diarrhea. No active complaints at this time. Plan for discharge today. Vital signs are stable. General: The patient appeared well nourished and normally developed. HEENT: Head exam is unremarkable. Neck is without jugular venous distension. LUNGS: Lungs are clear to auscultation and percussion. Breath sounds decreased. HEART: Rate and Rhythm are regular. First and second heart sounds normal. No murmurs, rubs or gallops. ABDOMEN: Abdominal exam reveals normal bowel sounds. Non-tender and non- distended. No evidence of peritonitis. EXTREMITITES: No clubbing, cyanosis, or edema. Objective - Vital Signs Vital signs: Vital Signs Temp 98.2 F 07/09/18 07:55 Pulse 67 07/09/18 07:55 Resp 16 07/09/18 07:55 BP 119/75 07/09/18 07:55 Pulse Ox 96 07/09/18 07:55 Intake & Output 07/08/18 07/09/18 07/09/18 18:59 06:59 18:59 Intake Total 120 236 Output Total 850 100 500 Balance -730 -100 -264 Weight 63.1 kg 71 kg Intake: Oral 120 236 Output: Urine 850 100 500 Other: Voiding Method Toilet # Voids 1 0 # Bowel Movements 1 - Labs CBC & Chem 7: 07/07/18 07:49 07/09/18 06:36 Labs: Abnormal Lab Results - Last 24 Hours (Table) 07/08/18 07/08/18 07/09/18 Range/Units 16:18 21:16 06:36 Carbon Dioxide 31 H (22-30) mmol/L BUN 28 H (7-17) mg/dL Creatinine 1.21 H (0.52-1.04) mg/dL Glucose 106 H (74-99) mg/dL POC Glucose (mg/dL) 145 H 183 H (75-99) mg/dL Assessment and Plan Plan: Assessment: 1. Nonoliguric acute kidney injury mostly prerenal secondary to hemodynamic instability. Also component of cardiorenal syndrome. Renal function improving with creatinine down to 1.21 today. No hydronephrosis noted on renal ultrasound. Right kidney appears to be small in size. 2. Rule out chronic kidney disease. She does have proteinuria on UA which is likely from underlying diabetic kidney disease. 3. Anemia. Severe iron deficiency noted. 4. Systolic CHF with ejection fraction of 45-50%. 5. Volume overload. Improved with diuresis. 6. Atrial fibrillation with RVR. Now rate controlled. 7. Diabetes mellitus. 8. Hypertension with chronic kidney disease. Controlled. Plan: Continue Lasix 20 mg orally once daily. Avoid nephrotoxins. Anticipated discharge today. Repeat bmp in 2-3 days. Follow up outpatient in the next 1-2 weeks.
[2018-07-09 12:32] VITALS: BP 136/60
--- NOTE | 2018-07-09 15:31 | P.PN ---
Subjective Progress Note Date: 07/09/18 Progress Note Date: 07/08/18 This is a pleasant 87-year-old female patient with a past medical history significant for paroxysmal atrial fibrillation, on long-term anticoagulation, CAD status post bypass grafting with FRIEDMAN to the LAD and PLV RCA 1995, dyslipidemia, carotid artery disease status post endarterectomy, hypertension, diabetes, and recent GI bleed. She follows in the office with Dr. Colin. For this admission, patient comes in with complaints of overall weakness. He denies having any symptoms of abdominal pain, chest discomfort, shortness of breath, dizziness or palpitations. Upon presentation, patient was found to be anemic with hemoglobin of 7.0. Stool was negative for occult blood. She denies any bleeding. Patient was also found to have abnormal troponins at 0.37, 1.16 and 1.06. She did receive one unit of packed red cells and hemoglobin this morning is pending. Sodium 141, potassium 4.8, BUN 30, creatinine 1.2.Most recent echocardiogram from 06/25/2018 shows an ejection fraction of 55-60% with mild left ear and mild MR. Chest x-ray shows only mild cardiomegaly.She was also found to be in atrial fibrillation with rapid ventricular response and started on a Cardizem drip. EKG on admission showed sinus rhythm with anterior lateral ST-T wave changes. Echocardiogram showed resting tachycardia with mild concentric left ventricular hypertrophy, mildly impaired LV systolic function with an ejection fraction between 45-50%, basal inferior LV wall motion hypokinesis and basal inferoseptal LV wall hypokinesis. With mild aortic valve sclerosis without stenosis, mild mitral regurgitation and mild tricuspid regurgitation. Patient does not wish to pursue any invasive testing at this time she is a good candidate for invasive testing secondary to recurrent anemia and acute renal failure. Upon examination, patient is resting comfortably in a chair. Overall she is feeling quite a bit better today. Blood pressure 144/60 with a heart rate in the 70s, 96% on 2 L of oxygen. 07/09/2000 Patient was seen and examined this morning, overall doing well. Anticoagulation has been resumedas the patient was taking at home previously. Patient is going to be transferred to rehab today. Hemodynamically stable. Objective - Vital Signs Vital signs: Vital Signs Temp 98.2 F 07/09/18 07:55 Pulse 67 07/09/18 12:00 Resp 16 07/09/18 12:00 BP 136/60 07/09/18 12:00 Pulse Ox 97 07/09/18 12:00 Intake & Output 07/08/18 07/09/18 07/09/18 18:59 06:59 18:59 Intake Total 120 472 Output Total 850 100 500 Balance -730 -100 -28 Weight 63.1 kg 71 kg Intake: Oral 120 472 Output: Urine 850 100 500 Other: Voiding Method Toilet # Voids 1 0 # Bowel Movements 1 - Exam PHYSICAL EXAMINATION: HEENT: Head is atraumatic, normocephalic. Pupils equal, round. Neck is supple. There is no elevated jugular venous pressure. HEART EXAMINATION: Heart sounds irregularly irregular, S1 and S2 with systolic murmur. CHEST EXAMINATION: Lungs are clear to auscultation and precussion. No chest wall tenderness is noted on palpation or with deep breathing. ABDOMEN: Soft, nontender. Bowel sounds are heard. No organomegaly noted. EXTREMITIES: 2+ peripheral pulses with no evidence of peripheral edema and no calf tenderness noted. NEUROLOGIC patient is awake, alert and oriented x3, short term memory loss. - Labs CBC & Chem 7: 07/07/18 07:49 07/09/18 06:36 Labs: Abnormal Lab Results - Last 24 Hours (Table) 07/08/18 07/08/18 07/09/18 Range/Units 16:18 21:16 06:36 Carbon Dioxide 31 H (22-30) mmol/L BUN 28 H (7-17) mg/dL Creatinine 1.21 H (0.52-1.04) mg/dL Glucose 106 H (74-99) mg/dL POC Glucose (mg/dL) 145 H 183 H (75-99) mg/dL Assessment and Plan Plan: Assessment: #1 paroxysmal atrial fibrillation with rapid ventricular response #2 anemia #3 recent GI bleed, currently stool for occult blood negative #4 non-ST elevation MD #5 history of CAD, prior CABG #6 hypertension Plan From cardiology's perspective, we'll recommend to continue the patient on her current medications. She may be able to be discharged once cleared by primary and follow-up appointment made in the office post discharge. DNP note has been reviewed, I agree with a documented findings and plan of care. Patient was seen and examined.
[2018-07-09] MEDS ORDERED: RIVAROXABAN 15 MG TAB PO SCH (17:30)
--- NOTE | 2018-07-13 08:30 | CDI ---
Last Revision, August 2017 Documentation Clarification Form Date: 07/13/18 From: Olga Grover Danielle Martin, Protective Services Social Worker Hours-8:30 am & 5 pm M-F Admit Date: 07/05/2018 1:59:00 PM Patient Name: Johanne Potter Visit Number: [id number] Discharge Date: 07/09/18 ATTENTION: The Clinical Documentation Specialists (CDI) and [facility] Coding Staff appreciate your assistance in clarifying documentation. Please respond to the clarification below the line at the bottom and electronically sign. The CDI & [facility] Coding staff will review the response and follow-up if needed. Please note: Queries are made part of the Legal Health Record. If you have any questions, please contact the author of this message via ITS. 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 Treatment: 07/06-Lasix 40 mg IV; 07/07-Lasix 40 mg IV; 07/08-Lasix 20 mg IV; -Lasix 20 mg PO In your professional opinion, can you please clarify the acuity and POA of CHF if known? Acute Systolic Heart Failure Chronic Systolic Heart Failure Acute on Chronic Systolic Heart Failure Unable to Determine Other, please specify POA Y=Present on admission N=Not present on admission U=Documentation is insufficient to determine if condition is present on admission W=Provider is unable to clinically determine whether condition was present on admission or not Please continue to document in your progress notes and discharge summary in order to capture severity of illness and risk of mortality. Include clinical findings that support your diagnosis. unable to determine MTDD
--- NOTE | 2018-07-13 21:37 | P.PN ---
Subjective Progress Note Date: 07/08/18 Progress note being dictated for Dr. Barth. Interval history:87-year-old pleasant female came with side compensative for severe lethargy and generalized weakness and found to be in atrial fibrillation patient does have history of A. fib is on labetalol at home presently on Cardizem had a normal ejection fraction the past had history of coronary artery disease patient BNP is elevated but patient does not have any signs or symptoms of congestive heart failure no shortness of breath denied Proximal nocturnal dyspnea ,dizziness, palpitations. Patient denied any fever chills. Patient hemoglobin is found to be 7 patient had a recent GI bleed. Although patient denied any blood in the stools or dark stools. At the time of her last discharge her hemoglobin is was 7 patient was on anticoagulation with Xarelto presently which is being held because of this low hemoglobin. Patient's hemoglobin was 9 during her recent discharge on June 26. He is also found to have elevated troponin of 1.060 with worsening creatinine to 1.7 baseline appears to be around 1-1.2 patient will be started on IV fluids will be given monitor blood transfusion because of possible non-ST elevation microinfarction type II from anemia. Although patient denied any chest pain cardiology evaluated the patient. Patient does have leukocytosis denied any fever chills. Denied any dysuria UA is not significant for any infection. 07/07/18 Status post Cardizem drip, converted to oral beta bryan with rate better controlled. Maintained on IV fluid hydration. Renal function improving , creatinine 1.47 Anticoagulation as per cardiology.Significant clinical improvement. Chest x-ray reported fluid overload yesterday, received Lasix, Diuretics on hold today as per nephrology. Renal ultrasound pending. 07/08/2018 receiving IV iron for iron deficient anemia. No bleeding. Renal function continues to improve, creatinine 1.26. Renal ultrasound reporting no hydronephrosis. Denies abdominal pain. Maintaining O2 sats in the mid 90s on 2 L nasal cannula. Chest x-ray stable. Evaluated by GI with recommendations noted, including no endoscopy at this time. Objective - Vital Signs Vital signs: Vital Signs Temp 98.3 F 07/08/18 20:26 Pulse 68 07/08/18 20:26 Resp 19 07/08/18 20:26 BP 143/63 07/08/18 20:26 Pulse Ox 95 07/08/18 20:26 Intake & Output 07/08/18 07/08/18 07/09/18 06:59 18:59 06:59 Intake Total 120 Output Total 600 850 100 Balance -600 -730 -100 Weight 63.1 kg 63.1 kg Intake: Oral 120 Output: Urine 600 850 100 Other: Voiding Method Bedside Commode Diaper # Voids 1 1 # Bowel Movements 1 - Exam GENERAL: The patient is alert and oriented x3, not in any acute distress. Fatigued. HEENT: Pupils are round and equally reacting to light. EOMI. No scleral icterus. No conjunctival pallor. Normocephalic, atraumatic. CARDIOVASCULAR: S1 and S2 present. No murmurs, rubs, or gallops. PULMONARY: Chest is clear to auscultation, no wheezing or crackles. ABDOMEN: Soft, nontender, nondistended, normoactive bowel sounds. No palpable organomegaly. MUSCULOSKELETAL: No joint swelling or deformity. EXTREMITIES: No cyanosis, clubbing, or pedal edema. NEUROLOGICAL: Gross neurological examination did not reveal any focal deficits. SKIN: No rashes. - Labs CBC & Chem 7: 07/07/18 07:49 07/09/18 06:36 Labs: Abnormal Lab Results - Last 24 Hours (Table) 07/07/18 07/08/18 07/08/18 Range/Units 20:57 06:21 07:07 BUN 30 H (7-17) mg/dL Creatinine 1.26 H (0.52-1.04) mg/dL Glucose 116 H (74-99) mg/dL POC Glucose (mg/dL) 168 H 127 H (75-99) mg/dL 07/08/18 07/08/18 Range/Units 11:30 16:18 BUN (7-17) mg/dL Creatinine (0.52-1.04) mg/dL Glucose (74-99) mg/dL POC Glucose (mg/dL) 186 H 145 H (75-99) mg/dL Assessment and Plan Assessment: -Severe lethargy and shortness of breath: Multifactorial ,Secondary to severe symptomatic anemia, status post transfusion of packed RBCs, atrial fibrillation non-ST elevation myocardial infarction which is type II. Doubt acute blood loss anemia, patient does not have any evidence of a acute GI bleed at this time. Iron deficient anemia. -Paroxysmal Atrial fibrillation With rapid ventricular rate status post Cardizem drip. Anticoagulation as per cardiology -Non-ST elevation myocardial infarction type II: Secondary to anemia, declined invasive testing -Leukocytosis reactive without any signs or symptoms of infection -Hyperkalemia: Lisinopril is being held Hyponatremia hypovolemic hyponatremia resolved with ,IV fluids hydration. -Acute renal failure on chronic kidney disease stage II acute renal failure secondary to prerenal azotemia -Type 2 diabetes mellitus patient -Hypertension -Coronary artery disease Plan: Continue current medication regime ,monitoring and symptomatic treatment. Diet advanced as per GI with no endoscopy at this time. Discharge planning in progress for today to subacute rehab. Close monitoring of CBC. The impression and plan of care has been dictated as directed. : I performed a history and examination of this patient, discussed the same with the dictator. I agree with the dictator's note ,documented as a scribe. Any additional findings or plans will be noted.
--- NOTE | 2018-07-13 21:41 | P.PN ---
Subjective Progress Note Date: 07/07/18 Progress note being dictated for Dr. Barth. Interval history:87-year-old pleasant female came with side compensative for severe lethargy and generalized weakness and found to be in atrial fibrillation patient does have history of A. fib is on labetalol at home presently on Cardizem had a normal ejection fraction the past had history of coronary artery disease patient BNP is elevated but patient does not have any signs or symptoms of congestive heart failure no shortness of breath denied Proximal nocturnal dyspnea ,dizziness, palpitations. Patient denied any fever chills. Patient hemoglobin is found to be 7 patient had a recent GI bleed. Although patient denied any blood in the stools or dark stools. At the time of her last discharge her hemoglobin is was 7 patient was on anticoagulation with Xarelto presently which is being held because of this low hemoglobin. Patient's hemoglobin was 9 during her recent discharge on June 26. He is also found to have elevated troponin of 1.060 with worsening creatinine to 1.7 baseline appears to be around 1-1.2 patient will be started on IV fluids will be given monitor blood transfusion because of possible non-ST elevation microinfarction type II from anemia. Although patient denied any chest pain cardiology evaluated the patient. Patient does have leukocytosis denied any fever chills. Denied any dysuria UA is not significant for any infection. 07/07/18 Status post Cardizem drip, converted to oral beta bryan with rate better controlled. Maintained on IV fluid hydration. Renal function improving , creatinine 1.47 Anticoagulation as per cardiology.Significant clinical improvement. Chest x-ray reported fluid overload yesterday, received Lasix, Diuretics on hold today as per nephrology. Renal ultrasound pending. Objective - Vital Signs Vital signs: Vital Signs Temp 98.3 F 07/07/18 20:30 Pulse 76 07/07/18 20:30 Resp 20 07/07/18 20:37 BP 158/68 07/07/18 20:30 Pulse Ox 96 07/07/18 20:30 Intake & Output 07/07/18 07/07/18 07/08/18 06:59 18:59 06:59 Intake Total 20.75 250 Output Total 1800 1350 600 Balance -1779.25 -1100 -600 Weight 64.7 kg Intake: Intake, IV Titration 20.75 Amount Diltiazem 50 mg In Sodium 20.75 Chloride 0.9% 40 ml @ 5 MG/HR 5 mls/hr IV .Q10H [facility] Rx#:[id number] Oral 250 Output: Urine 1800 1350 600 Other: Voiding Method Bedside Commode Diaper # Voids 1 1 - Labs CBC & Chem 7: 07/07/18 07:49 07/08/18 07:07 Labs: Abnormal Lab Results - Last 24 Hours (Table) 07/07/18 07/07/18 07/07/18 Range/Units 05:56 07:49 07:49 WBC 12.2 H (3.8-10.6) k/uL RBC 3.44 L (3.80-5.40) m/uL Hgb 9.4 L (11.4-16.0) gm/dL Hct 29.6 L (34.0-46.0) % BUN 36 H (7-17) mg/dL Creatinine 1.47 H (0.52-1.04) mg/dL Glucose 147 H (74-99) mg/dL POC Glucose (mg/dL) 161 H (75-99) mg/dL Iron (50-170) ug/dL Iron Saturation (12.00-45.00) 07/07/18 07/07/18 07/07/18 Range/Units 07:49 11:42 17:06 WBC (3.8-10.6) k/uL RBC (3.80-5.40) m/uL Hgb (11.4-16.0) gm/dL Hct (34.0-46.0) % BUN (7-17) mg/dL Creatinine (0.52-1.04) mg/dL Glucose (74-99) mg/dL POC Glucose (mg/dL) 223 H 166 H (75-99) mg/dL Iron 12 L (50-170) ug/dL Iron Saturation 3.30 L (12.00-45.00) 07/07/18 Range/Units 20:57 WBC (3.8-10.6) k/uL RBC (3.80-5.40) m/uL Hgb (11.4-16.0) gm/dL Hct (34.0-46.0) % BUN (7-17) mg/dL Creatinine (0.52-1.04) mg/dL Glucose (74-99) mg/dL POC Glucose (mg/dL) 168 H (75-99) mg/dL Iron (50-170) ug/dL Iron Saturation (12.00-45.00) Assessment and Plan Assessment: -Severe lethargy and shortness of breath: Multifactorial ,Secondary to severe symptomatic anemia, status post transfusion of packed RBCs, atrial fibrillation non-ST elevation myocardial infarction which is type II. Doubt acute blood loss anemia, patient does not have any evidence of a acute GI bleed at this time. may have subacute bleed gastroneurology was consulted with no endoscopy recommended at this time. -Paroxysmal Atrial fibrillation: With rapid ventricular rate status post Cardizem drip. Anticoagulation as per cardiology -Non-ST elevation myocardial infarction type II: Secondary to anemia, declined invasive testing -Leukocytosis reactive without any signs or symptoms of infection -Hyperkalemia: Lisinopril is being held Hyponatremia hypovolemic hyponatremia resolved with ,IV fluids hydration. -Acute renal failure on chronic kidney disease stage II acute renal failure secondary to prerenal azotemia, component of cardiorenal syndrome -Type 2 diabetes mellitus patient -Hypertension -Coronary artery disease -Acute on Chronic CHF, systolic dysfunction, EF 45-50%, fluid volume overload Plan: Continue current medication regime ,monitoring and symptomatic treatment. Diuretics on hold as per nephrology. Renal ultrasound pending The impression and plan of care has been dictated as directed. : I performed a history and examination of this patient, discussed the same with the dictator. I agree with the dictator's note ,documented as a scribe. Any additional findings or plans will be noted.
== END 2018-07-09 15:24 | DRG 811 ==
LOC: EC 12:21 → 3SCARD 13:59
PROVIDERS: ADMIT Internal Medicine; ATTEND Internal Medicine
PROC: 30230N1 Transfusion of Nonautologous Red Blood Cells into Peripheral Vein, Open Approach (ICD-10-PCS; principal; 2018-07-05)
DX: D64.9 Anemia, unspecified (principal); I21.A1 Myocardial infarction type 2; N17.9 Acute kidney failure, unspecified; I13.0 Hypertensive heart and chronic kidney disease with heart failure and stage 1 through stage 4 chronic kidney disease, or unspecified chronic kidney disease; E87.1 Hypo-osmolality and hyponatremia; I50.20 Unspecified systolic (congestive) heart failure; E86.0 Dehydration; I48.0 Paroxysmal atrial fibrillation; E11.22 Type 2 diabetes mellitus with diabetic chronic kidney disease; I08.3 Combined rheumatic disorders of mitral, aortic and tricuspid valves; E87.5 Hyperkalemia; K76.0 Fatty (change of) liver, not elsewhere classified; N18.2 Chronic kidney disease, stage 2 (mild); K57.30 Diverticulosis of large intestine without perforation or abscess without bleeding; K64.8 Other hemorrhoids; K55.20 Angiodysplasia of colon without hemorrhage; K59.03 Drug induced constipation; T40.4X5A Adverse effect of other synthetic narcotics, initial encounter; E78.5 Hyperlipidemia, unspecified; E61.1 Iron deficiency; D72.829 Elevated white blood cell count, unspecified; I25.10 Atherosclerotic heart disease of native coronary artery without angina pectoris; I25.2 Old myocardial infarction; H26.9 Unspecified cataract; R26.9 Unspecified abnormalities of gait and mobility; Z79.01 Long term (current) use of anticoagulants; Z79.84 Long term (current) use of oral hypoglycemic drugs; Z79.899 Other long term (current) drug therapy; Z87.891 Personal history of nicotine dependence; Z95.1 Presence of aortocoronary bypass graft; Z86.79 Personal history of other diseases of the circulatory system; Z87.81 Personal history of (healed) traumatic fracture; Z90.49 Acquired absence of other specified parts of digestive tract; Z88.8 Allergy status to other drugs, medicaments and biological substances; Z80.8 Family history of malignant neoplasm of other organs or systems
CPT/HCPCS: 36415; 71045; 71046; 74018; 76770; 80048; 80053; 80061; 81001; 82150; 82272; 82550; 82553; 82728; 83540; 83550; 83605; 83690; 83735; 83880; 84100; 84484; 85025; 85027; 85610; 85730; 86850; 86900; 86901; 86920; 93005; 93306; 96361; 96365; 96366; 96374; 96376; 99284; 99285

== ENCOUNTER 2018-07-10 13:57 | Emergency (ER) | payer MEDICARE, BC ==
[2018-07-10 14:07] VITALS: RESP 18; TEMP 98.1
[2018-07-10] MEDS ORDERED: SODIUM CHLORIDE 0.9% 1,000 ML IV STA (14:28)
[2018-07-10 15:10] LABS: HCT 32.5 % (34.0-46.0); HGB 10.3 gm/dL (11.4-16.0); Hypochromasia Marked; MCH 27.2 pg (25.0-35.0); MCHC 31.8 g/dL (31.0-37.0); MCV 85.7 fL (80.0-100.0); Mean Platelet Volume 6.8; Neutrophils % (A) 85 %; Platelet Count 475 k/uL (150-450); Poikilocytosis Slight; RDW 14.9 % (11.5-15.5)
[2018-07-10 15:11] LABS: Basophils # (A) 0.1 k/uL (0-0.2); Basophils % (A) 1 %; Eosinophils # (A) 0.1 k/uL (0-0.7); Eosinophils % (A) 1 %; Lymphocytes # (A) 0.7 k/uL (1.0-4.8); Lymphocytes % (A) 7 %; Monocytes # (A) 0.5 k/uL (0-1.0); Monocytes % (A) 5 %; Neutrophils # (A) 8.5 k/uL (1.3-7.7)
[2018-07-10 15:16] VITALS: BP 135/51
[2018-07-10 15:21] LABS: INR 1.2 (<1.2); Partial Thromboplastin Time 24.4 sec (22.0-30.0); Prothrombin Time 11.2 sec (9.0-12.0)
[2018-07-10 15:22] LABS: Ammonia <9 umol/L (<30)
[2018-07-10 15:25] LABS: Albumin 3.5 g/dL (3.5-5.0); Calcium 9.3 mg/dL (8.4-10.2); Potassium 4.8 mmol/L (3.5-5.1); Total Bilirubin 0.9 mg/dL (0.2-1.3); Total Protein 6.2 g/dL (6.3-8.2)
[2018-07-10 15:37] LABS: Creatine Kinase MB 0.6 ng/mL (0.0-2.4)
[2018-07-10 15:47] LABS: Troponin I 0.089 ng/mL (0.000-0.034)
--- NOTE | 2018-07-10 15:54 | ED ---
Weakness HPI - General Chief complaint: Weakness Stated complaint: Anemia Time Seen by Provider: 07/10/18 14:27 Source: patient, EMS, RN notes reviewed, old records reviewed Mode of arrival: EMS Limitations: no limitations - History of Present Illness Initial comments: This is an 87-year-old female the ER for evaluation. This patient resents today for evaluation regards to weakness, dehydration, patient has no chest pain or shortness of breath. Patient's coming in for evaluation of a near syncopal event prior to arrival. Patient does admit to diminished appetite. Patient states that she had stool sent in for continued GI bleed. Otherwise denies complaint MD Complaint: generalized weakness -: hour(s) (1) Location: generalized Severity: mild Quality: other (Near syncope) Consistency: now resolved Improves with: none Worsens with: none Associated Symptoms: denies other symptoms - Related Data Home Medications Medication Instructions Recorded Confirmed Cholecalciferol [Vitamin D3] 2,000 unit PO DAILY 09/24/15 07/10/18 Linagliptin [Tradjenta] 5 mg PO DAILY 06/18/18 07/10/18 Rivaroxaban [Xarelto] 15 mg PO HS 06/18/18 07/10/18 Simvastatin [Zocor] 20 mg PO HS 06/18/18 07/10/18 amLODIPine [Norvasc] 5 mg PO HS 06/18/18 07/10/18 traMADol HCL [Ultram] 50 mg PO Q6HR PRN 06/24/18 07/10/18 Ferrous Sulfate [Iron (65 MG 325 mg PO BID 07/10/18 07/10/18 Elemental)] INSULIN LISPRO (HumaLOG) [humaLOG] See Protocol SQ ACHS 07/10/18 07/10/18 Metoprolol Tartrate [Lopressor] 25 mg PO TID-W/MEALS 07/10/18 07/10/18 Previous Rx's Medication Instructions Recorded Labetalol [Trandate] 100 mg PO BID #60 tablet 05/27/16 Polyethylene Glycol 3350 [Miralax] 17 gm PO DAILY #20 packet 07/03/18 Furosemide [Lasix] 20 mg PO DAILY tab 07/08/18 Isosorbide Mononitrate ER [Imdur] 30 mg PO DAILY tab.er.24h 07/08/18 Nitroglycerin Sl Tabs [Nitrostat] 0.4 mg SUBLINGUAL Q5M PRN tab 07/08/18 Pantoprazole [Protonix] 40 mg PO BID tablet. 07/08/18 Allergies Allergy/AdvReac Type Severity Reaction Status Date / Time zolpidem [From Ambien] AdvReac Hallucinati Verified 07/10/18 14:21 ons Review of Systems ROS Statement: Those systems with pertinent positive or pertinent negative responses have been documented in the HPI. ROS Other: All systems not noted in ROS Statement are negative. Past Medical History Past Medical History: Coronary Artery Disease (CAD), Chest Pain / Angina, Diabetes Mellitus, Hyperlipidemia, Hypertension, Myocardial Infarction (ND), Syncope Additional Past Medical History / Comment(s): NIDDM type II, vertigo/weakness past 5 years and pt states she has had tests but no one knows why, weakness, gait disturbance, falls, bilateral cataracts. Last Myocardial Infarction Date:: 1995 History of Any Multi-Drug Resistant Organisms: None Reported Past Surgical History: Adenoidectomy, Coronary Bypass/CABG, Heart Catheterization, Orthopedic Surgery, Tonsillectomy Additional Past Surgical History / Comment(s): 3 vessel CABG 1995 in [place], carotid endartectomy 2015, ORIF L ankle d/t fracture. Past Anesthesia/Blood Transfusion Reactions: No Reported Reaction Past Psychological History: No Psychological Hx Reported Smoking Status: Former smoker Past Alcohol Use History: None Reported Past Drug Use History: None Reported - Past Family History Mother Family Medical History: No Reported History Father Family Medical History: No Reported History Son(s) Family Medical History: Cancer Additional Family Medical History / Comment(s): Throat cancer General Exam Limitations: no limitations General appearance: alert, in no apparent distress Head exam: Present: atraumatic, normocephalic, normal inspection Eye exam: Present: normal appearance, PERRL, EOMI. Absent: scleral icterus, conjunctival injection, periorbital swelling ENT exam: Present: normal exam, mucous membranes moist Neck exam: Present: normal inspection. Absent: tenderness, meningismus, lymphadenopathy Respiratory exam: Present: normal lung sounds bilaterally. Absent: respiratory distress, wheezes, rales, rhonchi, stridor Cardiovascular Exam: Present: regular rate, normal rhythm, normal heart sounds. Absent: systolic murmur, diastolic murmur, rubs, gallop, clicks GI/Abdominal exam: Present: soft, normal bowel sounds. Absent: distended, tenderness, guarding, rebound, rigid Extremities exam: Present: normal inspection, full ROM, normal capillary refill. Absent: tenderness, pedal edema, joint swelling, calf tenderness Back exam: Present: normal inspection Neurological exam: Present: alert, oriented X3, CN II-XII intact Psychiatric exam: Present: normal affect, normal mood Skin exam: Present: warm, dry, intact, normal color. Absent: rash Course Vital Signs 07/10/18 07/10/18 07/10/18 14:04 14:32 14:40 Temperature 98.1 F Pulse Rate 65 Pulse Rate [ Apical] Respiratory 18 Rate Blood Pressure 122/55 O2 Sat by Pulse 100 100 98 Oximetry 07/10/18 07/10/18 07/10/18 14:41 14:50 15:00 Temperature Pulse Rate 63 60 Pulse Rate [ 63 Apical] Respiratory 16 18 Rate Blood Pressure 133/56 133/56 O2 Sat by Pulse 100 100 Oximetry 07/10/18 07/10/18 07/10/18 15:10 15:20 15:30 Temperature Pulse Rate 60 64 62 Pulse Rate [ Apical] Respiratory 18 18 18 Rate Blood Pressure 135/51 135/51 135/51 O2 Sat by Pulse 100 99 98 Oximetry 07/10/18 07/10/18 07/10/18 15:40 15:50 16:00 Temperature Pulse Rate 63 60 63 Pulse Rate [ Apical] Respiratory 18 16 18 Rate Blood Pressure 135/51 135/51 135/51 O2 Sat by Pulse 100 100 100 Oximetry - Reevaluation(s) Reevaluation #1: 07/10/18 16:27 Medical record recent hospitalization transfer paperwork are reviewed Reevaluation #2: 07/10/18 16:27 Patient symptoms are improved, resolved with significant IV hydration Medical Decision Making - Medical Decision Making 87 female the ER for evaluation of weakness, patient is dehydration, rehydrated here in emergency room, feeling normal. Patient can be discharged home - Lab Data Result diagrams: 07/10/18 14:39 07/10/18 14:39 Lab Results 07/10/18 07/10/18 07/10/18 Range/Units 14:39 14:39 14:39 WBC 10.0 (3.8-10.6) k/uL RBC 3.80 (3.80-5.40) m/uL Hgb 10.3 L (11.4-16.0) gm/dL Hct 32.5 L (34.0-46.0) % MCV 85.7 (80.0-100.0) fL MCH 27.2 (25.0-35.0) pg MCHC 31.8 (31.0-37.0) g/dL RDW 14.9 (11.5-15.5) % Plt Count 475 H (150-450) k/uL Neutrophils % 85 % Lymphocytes % 7 % Monocytes % 5 % Eosinophils % 1 % Basophils % 1 % Neutrophils # 8.5 H (1.3-7.7) k/uL Lymphocytes # 0.7 L (1.0-4.8) k/uL Monocytes # 0.5 (0-1.0) k/uL Eosinophils # 0.1 (0-0.7) k/uL Basophils # 0.1 (0-0.2) k/uL Hypochromasia Marked Poikilocytosis Slight PT (9.0-12.0) sec INR (<1.2) APTT (22.0-30.0) sec Sodium (137-145) mmol/L Potassium (3.5-5.1) mmol/L Chloride (98-107) mmol/L Carbon Dioxide (22-30) mmol/L Anion Gap mmol/L BUN (7-17) mg/dL Creatinine (0.52-1.04) mg/dL Est GFR (CKD-EPI)AfAm (>60 ml/min/1.73 sqM) Est GFR (CKD-EPI)NonAf (>60 ml/min/1.73 sqM) Glucose (74-99) mg/dL Plasma Lactic Acid Jose 1.0 (0.7-2.0) mmol/L Calcium (8.4-10.2) mg/dL Magnesium (1.6-2.3) mg/dL Total Bilirubin (0.2-1.3) mg/dL AST (14-36) U/L ALT (9-52) U/L Alkaline Phosphatase (38-126) U/L Ammonia <9 (<30) umol/L Total Creatine Kinase 21 L (30-135) U/L CK-MB (CK-2) 0.6 (0.0-2.4) ng/mL CK-MB (CK-2) Rel Index 2.9 Troponin I 0.089 H* (0.000-0.034) ng/mL Total Protein (6.3-8.2) g/dL Albumin (3.5-5.0) g/dL Lipase (23-300) U/L Blood Type Blood Type Recheck Antibody Screen Spec Expiration Date 07/10/18 07/10/18 07/10/18 Range/Units 14:39 14:39 14:39 WBC (3.8-10.6) k/uL RBC (3.80-5.40) m/uL Hgb (11.4-16.0) gm/dL Hct (34.0-46.0) % MCV (80.0-100.0) fL MCH (25.0-35.0) pg MCHC (31.0-37.0) g/dL RDW (11.5-15.5) % Plt Count (150-450) k/uL Neutrophils % % Lymphocytes % % Monocytes % % Eosinophils % % Basophils % % Neutrophils # (1.3-7.7) k/uL Lymphocytes # (1.0-4.8) k/uL Monocytes # (0-1.0) k/uL Eosinophils # (0-0.7) k/uL Basophils # (0-0.2) k/uL Hypochromasia Poikilocytosis PT 11.2 (9.0-12.0) sec INR 1.2 H (<1.2) APTT 24.4 (22.0-30.0) sec Sodium 136 L (137-145) mmol/L Potassium 4.8 (3.5-5.1) mmol/L Chloride 98 (98-107) mmol/L Carbon Dioxide 30 (22-30) mmol/L Anion Gap 8 mmol/L BUN 24 H (7-17) mg/dL Creatinine 1.31 H (0.52-1.04) mg/dL Est GFR (CKD-EPI)AfAm 43 (>60 ml/min/1.73 sqM) Est GFR (CKD-EPI)NonAf 37 (>60 ml/min/1.73 sqM) Glucose 153 H (74-99) mg/dL Plasma Lactic Acid Jose (0.7-2.0) mmol/L Calcium 9.3 (8.4-10.2) mg/dL Magnesium 2.0 (1.6-2.3) mg/dL Total Bilirubin 0.9 (0.2-1.3) mg/dL AST 21 (14-36) U/L ALT 25 (9-52) U/L Alkaline Phosphatase 47 (38-126) U/L Ammonia (<30) umol/L Total Creatine Kinase (30-135) U/L CK-MB (CK-2) (0.0-2.4) ng/mL CK-MB (CK-2) Rel Index Troponin I (0.000-0.034) ng/mL Total Protein 6.2 L (6.3-8.2) g/dL Albumin 3.5 (3.5-5.0) g/dL Lipase 145 (23-300) U/L Blood Type A Positive Blood Type Recheck No Antibody Screen NEGATIVE Spec Expiration Date 07/13/2018 - 6869 - EKG Data -: EKG Interpreted by Me (EKG shows sinus rhythm rate of 64, OK 136, QRS 88, QTc 48) Disposition Clinical Impression: Weakness, Dizziness, Dehydration Disposition: HOME SELF-CARE Condition: Good Instructions: Dehydration (ED) Is patient prescribed a controlled substance at d/c from ED?: No Referrals: Jason Ross DO [Primary Care Provider] - 1-2 days
[2018-07-10 16:05] VITALS: PULSE 63
== END 2018-07-10 17:45 | disposition home or self-care (01) ==
LOC: EC 13:57
DX: R53.1 Weakness (principal); R42 Dizziness and giddiness; E86.0 Dehydration; I25.119 Atherosclerotic heart disease of native coronary artery with unspecified angina pectoris; E11.9 Type 2 diabetes mellitus without complications; E78.5 Hyperlipidemia, unspecified; I10 Essential (primary) hypertension; I25.2 Old myocardial infarction; Z79.01 Long term (current) use of anticoagulants; Z79.4 Long term (current) use of insulin; Z79.899 Other long term (current) drug therapy; Z88.8 Allergy status to other drugs, medicaments and biological substances; Z87.891 Personal history of nicotine dependence; Z95.1 Presence of aortocoronary bypass graft
CPT/HCPCS: 36415; 80053; 82140; 82550; 82553; 83605; 83690; 83735; 84484; 85025; 85610; 85730; 86850; 86900; 86901; 96360; 96361; 99285

== ENCOUNTER 2018-08-16 23:02 | Emergency (ER) | payer MEDICARE, BC ==
[2018-08-16 23:11] VITALS: RESP 18
[2018-08-16] MEDS ORDERED: DIPH,PERTUS(ACELL)TETVAC-LF 0.5 ML VIAL IM ONE (23:48)
--- NOTE | 2018-08-16 23:57 | ED ---
Fall HPI - General Chief Complaint: Fall Stated Complaint: Fall Time Seen by Provider: 08/16/18 23:30 Source: EMS Mode of arrival: EMS - History of Present Illness Initial Comments: This patient is an 87-year-old woman who presents to have evaluation after she had a fall at home. The patient states that she has chronic "dizziness." She states that she is supposed to always use a walker to aid her ambulation but that she did not tonight. She states that she lost her balance and fell backwards striking her head. She denies loss of consciousness. She does take Xarelto however. The patient denies other injuries in the fall. She is not having neck or back pain. No chest, abdomen, or extremity pain. She has been able to stand up since the fall. MD Complaint: fall Onset/Timin -: hour(s) Fall From: standing When Fall Occurred: [address] Fall Occurred: home Loss of Consciousness: none Prolonged Down Time?: no Symptoms Prior to Fall: dizziness Location: head - Related Data Home Medications Medication Instructions Recorded Confirmed Cholecalciferol [Vitamin D3] 2,000 unit PO DAILY 09/24/15 08/16/18 Linagliptin [Tradjenta] 5 mg PO DAILY 06/18/18 08/16/18 Rivaroxaban [Xarelto] 15 mg PO DAILY 06/18/18 08/16/18 Simvastatin [Zocor] 20 mg PO DAILY 06/18/18 08/16/18 amLODIPine [Norvasc] 5 mg PO DAILY 06/18/18 08/16/18 traMADol HCL [Ultram] 100 mg PO Q6HR PRN 06/24/18 08/16/18 Ferrous Sulfate [Iron (65 MG 325 mg PO DAILY 07/10/18 08/16/18 Elemental)] Lisinopril [Zestril] 5 mg PO DAILY 08/16/18 08/16/18 Previous Rx's Medication Instructions Recorded Polyethylene Glycol 3350 [Miralax] 17 gm PO DAILY #20 packet 07/03/18 Pantoprazole [Protonix] 40 mg PO BID tablet. 07/08/18 Allergies Allergy/AdvReac Type Severity Reaction Status Date / Time zolpidem [From Ambien] AdvReac Hallucinati Verified 08/16/18 23:17 ons Review of Systems ROS Statement: Those systems with pertinent positive or pertinent negative responses have been documented in the HPI. ROS Other: All systems not noted in ROS Statement are negative. Constitutional: Denies: fever, weakness Eyes: Denies: vision change Respiratory: Denies: cough, dyspnea Cardiovascular: Denies: chest pain, palpitations, syncope Gastrointestinal: Denies: abdominal pain, nausea, vomiting Musculoskeletal: Denies: back pain Skin: Denies: rash Neurological: Denies: headache, weakness, numbness Hematological/Lymphatic: Reports: as per HPI, easy bleeding (Using Xarelto) Past Medical History Past Medical History: Coronary Artery Disease (CAD), Chest Pain / Angina, Diabetes Mellitus, Hyperlipidemia, Hypertension, Myocardial Infarction ([place]), Syncope Additional Past Medical History / Comment(s): NIDDM type II, vertigo/weakness past 5 years and pt states she has had tests but no one knows why, weakness, gait disturbance, falls, bilateral cataracts. Last Myocardial Infarction Date:: 1995 History of Any Multi-Drug Resistant Organisms: None Reported Past Surgical History: Adenoidectomy, Coronary Bypass/CABG, Heart Catheterization, Orthopedic Surgery, Tonsillectomy Additional Past Surgical History / Comment(s): 3 vessel CABG 1995 in [place], carotid endartectomy 2015, ORIF L ankle d/t fracture. Past Anesthesia/Blood Transfusion Reactions: No Reported Reaction Past Psychological History: No Psychological Hx Reported Smoking Status: Former smoker Past Alcohol Use History: None Reported Past Drug Use History: None Reported - Past Family History Mother Family Medical History: No Reported History Father Family Medical History: No Reported History Son(s) Family Medical History: Cancer Additional Family Medical History / Comment(s): Throat cancer General Exam Limitations: no limitations General appearance: alert, in no apparent distress Head exam: Present: normocephalic, other (Laceration posterior scalp) Eye exam: Present: normal appearance, PERRL, EOMI. Absent: scleral icterus, conjunctival injection, nystagmus ENT exam: Present: normal oropharynx Neck exam: Present: normal inspection, other (Cervical collar). Absent: tenderness Respiratory exam: Present: normal lung sounds bilaterally. Absent: respiratory distress, wheezes, rales, rhonchi, stridor, chest wall tenderness Cardiovascular Exam: Present: regular rate, normal rhythm, normal heart sounds. Absent: systolic murmur, diastolic murmur, rubs, gallop GI/Abdominal exam: Present: soft. Absent: distended, tenderness, guarding, rebound, rigid, mass Extremities exam: Present: normal inspection, normal capillary refill. Absent: pedal edema, calf tenderness Back exam: Present: normal inspection. Absent: vertebral tenderness Neurological exam: Present: alert, oriented X3, CN II-XII intact. Absent: motor sensory deficit Skin exam: Present: warm, dry, normal color. Absent: rash Course Vital Signs 08/16/18 08/17/18 23:06 01:02 Temperature 98.8 F 98.6 F Pulse Rate 93 88 Respiratory 18 18 Rate Blood Pressure 204/84 167/79 O2 Sat by Pulse 95 95 Oximetry Procedures - Laceration Laceration #1 Consent Obtained: verbal consent Indication: laceration Site: scalp Size (cm): 1 Description: linear Depth: simple, single layer Type of Sutures: other (Skin adhesive) Patient Tolerated Procedure: well, no complications Disposition Clinical Impression: Fall, Head injury, Scalp laceration Disposition: HOME SELF-CARE Condition: Good Instructions: Laceration (DC), Fall Prevention for Older Adults (ED), Head Injury (ED) Is patient prescribed a controlled substance at d/c from ED?: No Referrals: Jason Ross DO [Primary Care Provider] - 1-2 days
--- NOTE | 2018-08-17 00:18 | CT ---
EXAMINATION TYPE: CT brain gen phillips con DATE OF EXAM: 08/17/2018 COMPARISON: CT brain 05/22/2016 HISTORY: fall headache. Neck pain CT DLP: 1248.80 mGycm Automated exposure control for dose reduction was used. TECHNIQUE: CT scan of the head and cervical spine are performed without contrast. FINDINGS: There is cerebral cortical atrophy. There is no mass effect nor midline shift. There is n o sign of intracranial hemorrhage. Calvarium is intact. There is straightening of the cervical spine. There is degenerative disc space narrowing at C5-6 C6-7 with spurring of the endplates. The skull base is intact. There is no compression fracture. The face t joints are intact. IMPRESSION: Cerebral atrophy. No acute intracranial abnormality. No change compared to old exam. Spondylotic changes in the lower cervical spine. No fracture.
[2018-08-17] MEDS ORDERED: TOPICAL SKIN ADHESIVE 1 EACH AMP TOPICAL ONE (00:50)
[2018-08-17 01:04] VITALS: BP 167/79; PULSE 88; TEMP 98.6
== END 2018-08-17 01:12 | disposition home or self-care (01) ==
LOC: EC 23:02
DX: S01.01XA Laceration without foreign body of scalp, initial encounter (principal); R42 Dizziness and giddiness; R29.6 Repeated falls; E78.5 Hyperlipidemia, unspecified; I10 Essential (primary) hypertension; I25.119 Atherosclerotic heart disease of native coronary artery with unspecified angina pectoris; E11.9 Type 2 diabetes mellitus without complications; I25.2 Old myocardial infarction; Z87.891 Personal history of nicotine dependence; Z88.8 Allergy status to other drugs, medicaments and biological substances; Z79.01 Long term (current) use of anticoagulants; Z79.84 Long term (current) use of oral hypoglycemic drugs; Z79.899 Other long term (current) drug therapy; Z95.1 Presence of aortocoronary bypass graft; Z23 Encounter for immunization; W01.0XXA Fall on same level from slipping, tripping and stumbling without subsequent striking against object, initial encounter; Y92.009 Unspecified place in unspecified non-institutional (private) residence as the place of occurrence of the external cause
CPT/HCPCS: 70450; 72125; 90471; 90715; 99284

== ENCOUNTER 2018-08-30 09:20 | Observation (INO) | payer MEDICARE, BC ==
[2018-08-30] MEDS ORDERED: SODIUM CHLORIDE 0.9% 1,000 ML IV STA ×2 (09:56)
--- NOTE | 2018-08-30 10:07 | ED ---
Weakness HPI - General Chief complaint: Weakness Stated complaint: weakness/trouble sleeping Time Seen by Provider: 08/30/18 09:47 Source: patient, RN notes reviewed Mode of arrival: ambulatory Limitations: no limitations - History of Present Illness Initial comments: This 87-year-old female who presents with complaints of generalized weakness. She also states she's had sweats not sleeping she was diagnosed with a urinary tract infection 2 days ago just start her antibiotics yesterday. She she's having difficulty walking he's had decreased oral intake she blames again old. MD Complaint: generalized weakness - Related Data Home Medications Medication Instructions Recorded Confirmed Cholecalciferol [Vitamin D3] 2,000 unit PO DAILY 09/24/15 08/30/18 Linagliptin [Tradjenta] 5 mg PO DAILY 06/18/18 08/30/18 Rivaroxaban [Xarelto] 15 mg PO DAILY 06/18/18 08/30/18 Simvastatin [Zocor] 20 mg PO DAILY 06/18/18 08/30/18 amLODIPine [Norvasc] 5 mg PO DAILY 06/18/18 08/30/18 traMADol HCL [Ultram] 100 mg PO Q6HR PRN 06/24/18 08/30/18 Lisinopril [Zestril] 5 mg PO DAILY 08/16/18 08/30/18 Antibiotic Unknown 1 tab PO Q12H 08/30/18 08/30/18 Docusate [Colace] 100 mg PO DAILY 08/30/18 08/30/18 Previous Rx's Medication Instructions Recorded Polyethylene Glycol 3350 [Miralax] 17 gm PO DAILY #20 packet 07/03/18 Pantoprazole [Protonix] 40 mg PO BID tablet. 07/08/18 Allergies Allergy/AdvReac Type Severity Reaction Status Date / Time zolpidem [From Ambien] AdvReac Hallucinati Verified 08/30/18 12:27 ons Review of Systems ROS Statement: Those systems with pertinent positive or pertinent negative responses have been documented in the HPI. ROS Other: All systems not noted in ROS Statement are negative. Past Medical History Past Medical History: Coronary Artery Disease (CAD), Chest Pain / Angina, Diabetes Mellitus, Hyperlipidemia, Hypertension, Myocardial Infarction ([place]), Syncope Additional Past Medical History / Comment(s): NIDDM type II, vertigo/weakness past 5 years and pt states she has had tests but no one knows why, weakness, gait disturbance, falls, bilateral cataracts. Last Myocardial Infarction Date:: 1995 History of Any Multi-Drug Resistant Organisms: None Reported Past Surgical History: Adenoidectomy, Coronary Bypass/CABG, Heart Catheterization, Orthopedic Surgery, Tonsillectomy Additional Past Surgical History / Comment(s): 3 vessel CABG 1995 in [place], R carotid endartectomy 2016, ORIF L ankle d/t fracture. Past Anesthesia/Blood Transfusion Reactions: No Reported Reaction Past Psychological History: No Psychological Hx Reported Smoking Status: Former smoker Past Alcohol Use History: None Reported Past Drug Use History: None Reported - Past Family History Mother Family Medical History: No Reported History Father Family Medical History: No Reported History Son(s) Family Medical History: Cancer Additional Family Medical History / Comment(s): Throat cancer General Exam - General Exam Comments Initial Comments: This is a well-developed well-nourished awake alert oriented 3 female Limitations: no limitations General appearance: alert, in no apparent distress Head exam: Present: atraumatic, normocephalic, normal inspection Eye exam: Present: normal appearance, PERRL, EOMI. Absent: scleral icterus, conjunctival injection, periorbital swelling ENT exam: Present: mucous membranes dry Neck exam: Present: normal inspection. Absent: tenderness, meningismus, lymphadenopathy Respiratory exam: Present: normal lung sounds bilaterally. Absent: respiratory distress, wheezes, rales, rhonchi, stridor Cardiovascular Exam: Present: normal rhythm, tachycardia GI/Abdominal exam: Present: soft, normal bowel sounds. Absent: distended, tenderness, guarding, rebound, rigid Extremities exam: Present: normal inspection, full ROM, normal capillary refill. Absent: tenderness, pedal edema, joint swelling, calf tenderness Back exam: Present: normal inspection Neurological exam: Present: alert, oriented X3, CN II-XII intact Psychiatric exam: Present: normal affect, normal mood Skin exam: Present: warm, dry, intact, normal color. Absent: rash Course Vital Signs 08/30/18 08/30/18 08/30/18 09:23 09:38 10:00 Temperature 97.7 F Pulse Rate 108 H 91 Respiratory 20 16 Rate Blood Pressure 162/75 180/63 O2 Sat by Pulse 99 99 99 Oximetry EKG Findings - EKG Results: EKG: interpreted by RODERICK, sinus rhythm (Sinus rhythm of 97. 01 32 QRS 84 QT since QTC 370/[address] configuration) Medical Decision Making - Medical Decision Making I did discuss the findings with the patient and caregiver. Patient was sent in for evaluation for renal insufficiency and worsening renal function she will be admitted for IV hydration and nephrology consultation. - Lab Data Result diagrams: 08/30/18 10:17 08/30/18 10:17 Lab Results 08/30/18 08/30/18 08/30/18 Range/Units 10:17 10:17 10:17 WBC 7.7 (3.8-10.6) k/uL RBC 5.23 (3.80-5.40) m/uL Hgb 14.1 D (11.4-16.0) gm/dL Hct 46.4 H (34.0-46.0) % MCV 88.9 (80.0-100.0) fL MCH 27.0 (25.0-35.0) pg MCHC 30.4 L (31.0-37.0) g/dL RDW 16.2 H (11.5-15.5) % Plt Count 310 (150-450) k/uL Neutrophils % 77 % Lymphocytes % 13 % Monocytes % 6 % Eosinophils % 2 % Basophils % 1 % Neutrophils # 5.9 (1.3-7.7) k/uL Lymphocytes # 1.0 (1.0-4.8) k/uL Monocytes # 0.4 (0-1.0) k/uL Eosinophils # 0.1 (0-0.7) k/uL Basophils # 0.0 (0-0.2) k/uL Hypochromasia Slight Anisocytosis Slight Sodium 140 (137-145) mmol/L Potassium 5.6 H (3.5-5.1) mmol/L Chloride 104 (98-107) mmol/L Carbon Dioxide 28 (22-30) mmol/L Anion Gap 8 mmol/L BUN 21 H (7-17) mg/dL Creatinine 1.57 H (0.52-1.04) mg/dL Est GFR (CKD-EPI)AfAm 34 (>60 ml/min/1.73 sqM) Est GFR (CKD-EPI)NonAf 30 (>60 ml/min/1.73 sqM) Glucose 221 H (74-99) mg/dL Calcium 10.2 (8.4-10.2) mg/dL Magnesium 2.0 (1.6-2.3) mg/dL Total Bilirubin 0.6 (0.2-1.3) mg/dL AST 18 (14-36) U/L ALT 21 (9-52) U/L Alkaline Phosphatase 31 L (38-126) U/L Total Creatine Kinase 37 (30-135) U/L CK-MB (CK-2) 1.0 (0.0-2.4) ng/mL CK-MB (CK-2) Rel Index 2.7 Total Protein 7.0 (6.3-8.2) g/dL Albumin 4.1 (3.5-5.0) g/dL Urine Color Urine Appearance (Clear) Urine pH (5.0-8.0) Ur Specific [place] (1.001-1.035) Urine Protein (Negative) Urine Glucose (UA) (Negative) Urine Ketones (Negative) Urine Blood (Negative) Urine Nitrite (Negative) Urine Bilirubin (Negative) Urine Urobilinogen (<2.0) mg/dL Ur Leukocyte Esterase (Negative) Influenza Type A RNA (Not Detectd) Influenza Type B (PCR) (Not Detectd) 08/30/18 08/30/18 Range/Units 10:17 11:20 WBC (3.8-10.6) k/uL RBC (3.80-5.40) m/uL Hgb (11.4-16.0) gm/dL Hct (34.0-46.0) % MCV (80.0-100.0) fL MCH (25.0-35.0) pg MCHC (31.0-37.0) g/dL RDW (11.5-15.5) % Plt Count (150-450) k/uL Neutrophils % % Lymphocytes % % Monocytes % % Eosinophils % % Basophils % % Neutrophils # (1.3-7.7) k/uL Lymphocytes # (1.0-4.8) k/uL Monocytes # (0-1.0) k/uL Eosinophils # (0-0.7) k/uL Basophils # (0-0.2) k/uL Hypochromasia Anisocytosis Sodium (137-145) mmol/L Potassium (3.5-5.1) mmol/L Chloride (98-107) mmol/L Carbon Dioxide (22-30) mmol/L Anion Gap mmol/L BUN (7-17) mg/dL Creatinine (0.52-1.04) mg/dL Est GFR (CKD-EPI)AfAm (>60 ml/min/1.73 sqM) Est GFR (CKD-EPI)NonAf (>60 ml/min/1.73 sqM) Glucose (74-99) mg/dL Calcium (8.4-10.2) mg/dL Magnesium (1.6-2.3) mg/dL Total Bilirubin (0.2-1.3) mg/dL AST (14-36) U/L ALT (9-52) U/L Alkaline Phosphatase (38-126) U/L Total Creatine Kinase (30-135) U/L CK-MB (CK-2) (0.0-2.4) ng/mL CK-MB (CK-2) Rel Index Total Protein (6.3-8.2) g/dL Albumin (3.5-5.0) g/dL Urine Color Light Yellow Urine Appearance Clear (Clear) Urine pH 7.0 (5.0-8.0) Ur Specific [place] 1.005 (1.001-1.035) Urine Protein Trace H (Negative) Urine Glucose (UA) Negative (Negative) Urine Ketones Negative (Negative) Urine Blood Negative (Negative) Urine Nitrite Negative (Negative) Urine Bilirubin Negative (Negative) Urine Urobilinogen <2.0 (<2.0) mg/dL Ur Leukocyte Esterase Negative (Negative) Influenza Type A RNA Not Detected (Not Detectd) Influenza Type B (PCR) Not Detected (Not Detectd) - Radiology Data Radiology results: report reviewed (I did review the imaging no acute findings.) , image reviewed Disposition Clinical Impression: Renal insufficiency syndrome, Dehydration Disposition: ADMITTED IP TO THIS [facility] Condition: Stable Referrals: Jason Ross DO [Primary Care Provider] - 1-2 days
[2018-08-30 10:44] LABS: Anisocytosis Slight; Basophils % (A) 1 %; Eosinophils # (A) 0.1 k/uL (0-0.7); Eosinophils % (A) 2 %; HCT 46.4 % (34.0-46.0); Hypochromasia Slight; Lymphocytes % (A) 13 %; MCHC 30.4 g/dL (31.0-37.0); MCV 88.9 fL (80.0-100.0); Mean Platelet Volume 7.2; Monocytes # (A) 0.4 k/uL (0-1.0); Monocytes % (A) 6 %; Neutrophils # (A) 5.9 k/uL (1.3-7.7); Neutrophils % (A) 77 %; Platelet Count 310 k/uL (150-450); RBC 5.23 m/uL (3.80-5.40); RDW 16.2 % (11.5-15.5); WBC 7.7 k/uL (3.8-10.6)
--- NOTE | 2018-08-30 10:46 | XR ---
EXAMINATION TYPE: XR chest 2V DATE OF EXAM: 08/30/2018 HISTORY: cough. REFERENCE: Previous study dated 07/08/2018. FINDINGS: There has been a previous midline sternotomy. The heart is normal in size. The lungs are cl ear. The pleural spaces are clear. IMPRESSION: NO ACUTE INTRATHORACIC ABNORMALITY.
[2018-08-30 10:49] LABS: Albumin 4.1 g/dL (3.5-5.0); Calcium 10.2 mg/dL (8.4-10.2); HGB 14.1 gm/dL (11.4-16.0); Potassium 5.6 mmol/L (3.5-5.1); Total Bilirubin 0.6 mg/dL (0.2-1.3)
[2018-08-30 10:59] VITALS: RESP 16
[2018-08-30 11:30] LABS: Appearance,Urine Clear (Clear); Bilirubin,Urine Negative (Negative); Blood,Urine Negative (Negative); Color,Urine Light Yellow; Glucose,Urine (UA) Negative (Negative); Ketones,Urine Negative (Negative); Leukocyte Esterase,Urine Negative (Negative); Nitrite,Urine Negative (Negative); Protein,Urine Trace (Negative); Specific Gravity,Urine 1.005 (1.001-1.035); Urobilinogen,Urine <2.0 mg/dL (<2.0)
[2018-08-30] MEDS ORDERED: NALOXONE 0.4 MG/ML 1 ML VIAL IV PRN (13:18)
[2018-08-30] MEDS ORDERED: ACETAMINOPHEN TAB 325 MG TAB PO PRN (13:18)
[2018-08-30] MEDS ORDERED: traMADol 50 MG TAB PO PRN (13:19)
[2018-08-30] MEDS: SODIUM CHLORIDE 0.9% 1,000 ML IV SCH (14:28)
[2018-08-30 14:42] VITALS: BMI 23.9
[2018-08-30] MEDS: POLYETHYLENE GLYCOL 3350 17 GM POWD.PACK PO SCH (16:14)
[2018-08-30] MEDS: amLODIPine 5 MG TAB PO SCH (16:14)
[2018-08-30] MEDS: LINAGLIPTIN 5 MG TABLET PO SCH (16:14)
[2018-08-30] MEDS: ATORVASTATIN 10 MG TAB PO SCH (16:14)
[2018-08-30] MEDS: CHOLECALCIFEROL 1,000 UNIT TAB PO SCH (16:14)
[2018-08-30] MEDS: RIVAROXABAN 15 MG TAB PO SCH (16:15)
[2018-08-30] MEDS: DOCUSATE 100 MG CAP PO SCH (16:15)
[2018-08-30] MEDS: INSULIN ASPART 100 UNIT/ML 1 ML 10 ML VIAL SQ SCH ×2 (17:27→21:29)
[2018-08-30] MEDS: PANTOPRAZOLE 40 MG TABLET PO SCH (17:29)
--- NOTE | 2018-08-30 18:39 | P.HPIM ---
History of Present Illness H&P Date: 08/30/18 Chief Complaint: Insomnia and generalized weakness Ms. Potter is an 87-year-old female with a past medical history of coronary artery disease, habitus mellitus, hypertension, hyperlipidemia, type 2 diabetes mellitus coming to the hospital with a chief complaint of generalized weakness. Patient states that she was not able to sleep last night and so came into the emergency department. Patient denies having any chest pain, difficulty in breathing or lower extremity swelling. Patient denies having any cough or sputum production. Patient denies having any nausea vomiting or abdominal pain. No constipation or diarrhea. No dysuria or hematuria. Patient walks with the roller walker her due to history of chronic low back pain. Patient mentions that she has generalized weakness but she came to the ER as she was not able to sleep last night. In the ER patient had blood work done with elevated creatinine from her baseline along with hyperkalemia. So she has been admitted for acute kidney injury. Review of Systems REVIEW OF SYSTEMS: PSYCH: No anxiety or depression NEURO:No c/o weakness of the extremties, No facial droop, No speech abnormalities. VASCULAR: no edema HEMATOLOGIC: No history of easy bleeding and bruising . No recent infections . RESPIRATORY: No cough, No SOB, No chest discomfort. IMMUNE: No infections INTEGUMENT: no rashes OPHTHALMOLOGIC: No blurry vision and no eye discharge : No dysuria or hematuria ART HISTORY PROFESSOR: No bleeding PV CARDIAC: No chest pain , shortness of breath , paroxysmal nocturnal dyspnea MUSCULOSKELETAL : No Aches or pains in the joints or muscles. GI: No abdominal pain, Nausea or vomiting. No constipation or diarrhea. Past Medical History Past Medical History: Coronary Artery Disease (CAD), Chest Pain / Angina, Diabetes Mellitus, Hyperlipidemia, Hypertension, Myocardial Infarction ([place]), Syncope Additional Past Medical History / Comment(s): NIDDM type II, vertigo/weakness past 5 years and pt states she has had tests but no one knows why, weakness, gait disturbance, falls, bilateral cataracts, dehydration Last Myocardial Infarction Date:: 1995 History of Any Multi-Drug Resistant Organisms: None Reported Past Surgical History: Adenoidectomy, Coronary Bypass/CABG, Heart Catheterization, Orthopedic Surgery, Tonsillectomy Additional Past Surgical History / Comment(s): 3 vessel CABG 1995 in [place], carotid endartectomy 2016, ORIF L ankle d/t fracture. Past Anesthesia/Blood Transfusion Reactions: No Reported Reaction Past Psychological History: No Psychological Hx Reported Additional Psychological History / Comment(s): Pt resides alone in an apartment with her daughter living down the hallway. She has a walker. She no longer drives, her son takes her to appointments. Smoking Status: Former smoker Past Alcohol Use History: None Reported Additional Past Alcohol Use History / Comment(s): Pt started smoking in 1949 and quit in 2015. Past Drug Use History: None Reported Additional Drug Use History / Comment(s): Patient smoked for 60+ years. Quit in 2015 - Past Family History Mother Family Medical History: No Reported History Father Family Medical History: No Reported History Son(s) Family Medical History: Cancer Additional Family Medical History / Comment(s): Throat cancer Medications and Allergies Home Medications Medication Instructions Recorded Confirmed Type Cholecalciferol [Vitamin D3] 2,000 unit PO DAILY 09/24/15 08/30/18 History Linagliptin [Tradjenta] 5 mg PO DAILY 06/18/18 08/30/18 History Rivaroxaban [Xarelto] 15 mg PO DAILY 06/18/18 08/30/18 History Simvastatin [Zocor] 20 mg PO DAILY 06/18/18 08/30/18 History amLODIPine [Norvasc] 5 mg PO DAILY 06/18/18 08/30/18 History traMADol HCL [Ultram] 100 mg PO Q6HR PRN 06/24/18 08/30/18 History Polyethylene Glycol 3350 [Miralax] 17 gm PO DAILY #20 packet 07/03/18 08/30/18 Rx Pantoprazole [Protonix] 40 mg PO BID tablet. 07/08/18 08/30/18 Rx Lisinopril [Zestril] 5 mg PO DAILY 08/16/18 08/30/18 History Antibiotic Unknown 1 tab PO Q12H 08/30/18 08/30/18 History Docusate [Colace] 100 mg PO DAILY 08/30/18 08/30/18 History Allergies Allergy/AdvReac Type Severity Reaction Status Date / Time zolpidem [From Ambien] AdvReac Hallucinati Verified 08/30/18 12:27 ons Physical Exam Vitals: Vital Signs Temp Pulse Pulse Resp BP BP Pulse Ox 08/30/18 14:30 97.6 F 89 16 148/76 99 08/30/18 10:00 91 16 180/63 99 08/30/18 09:38 99 08/30/18 09:23 97.7 F 108 H 20 162/75 99 Intake and Output 08/30/18 08/30/18 08/30/18 06:59 14:59 22:59 Intake Total 600 Balance 600 Intake: Oral 600 Other: # Voids 1 Weight 61.235 kg GEN. APPEARANCE: alert, in no apparent distress HEAD EXAM: atraumatic, normocephalic, normal inspection EYE EXAM: No pallor. No icterus ENT EXAM: normal exam, mucous membranes moist NECK EXAM: No JVD. No lymphadenopathy. RESPIRATORY EXAM: Bilateral breath sounds are positive. No wheeze or crackles. CARDIOVASCULAR EXAM: S1 and S2 heard. GI/ABDOMINAL EXAM: soft, normal bowel sounds. Absent: distended, tenderness, guarding, rebound, rigid EXTREMITIES EXAM: No peripheral edema. NEUROLOGICAL EXAM: alert, oriented X3, no focal neurological deficits PSYCHIATRIC EXAM: normal affect, normal mood SKIN EXAM: warm, dry, intact, normal color. Absent: rash Results CBC & Chem 7: 08/30/18 10:17 08/30/18 10:17 Labs: Abnormal Lab Results - Last 24 Hours (Table) 08/30/18 08/30/18 08/30/18 Range/Units 10:17 10:17 11:20 Hct 46.4 H (34.0-46.0) % MCHC 30.4 L (31.0-37.0) g/dL RDW 16.2 H (11.5-15.5) % Potassium 5.6 H (3.5-5.1) mmol/L BUN 21 H (7-17) mg/dL Creatinine 1.57 H (0.52-1.04) mg/dL Glucose 221 H (74-99) mg/dL Alkaline Phosphatase 31 L (38-126) U/L Urine Protein Trace H (Negative) Thrombosis Risk Factor Assmnt - Choose All That Apply Each Risk Factor Represents 3 Points: Age 75 years or older Thrombosis Risk Factor Assessment Total Risk Factor Score: 3 Thrombosis Risk Factor Assessment Level: Moderate Risk Assessment and Plan Assessment: ASSESSMENT Acute kidney injury-probably secondary to dehydration Hyperkalemia History of coronary artery disease status post CABG Type 2 diabetes mellitus Hypertension Hyperlipidemia CK D stage II Plan: Patient has been started on IV fluids which will be continued in view of her AK I secondary to dehydration. We will resume her home medications. Nephrology has been consulted. Further recommendations to follow depending on the progress of the patient.
[2018-08-30] MEDS ORDERED: MELATONIN 3 MG TABLET PO PRN (21:43)
[2018-08-31] MEDS: SODIUM CHLORIDE 0.9% 1,000 ML IV SCH ×2 (05:27→14:13)
[2018-08-31] MEDS: POLYETHYLENE GLYCOL 3350 17 GM POWD.PACK PO SCH (08:07)
[2018-08-31] MEDS: amLODIPine 5 MG TAB PO SCH (08:41)
[2018-08-31] MEDS: CHOLECALCIFEROL 1,000 UNIT TAB PO SCH (08:41)
[2018-08-31] MEDS: PANTOPRAZOLE 40 MG TABLET PO SCH (08:41)
[2018-08-31] MEDS: ATORVASTATIN 10 MG TAB PO SCH (08:41)
[2018-08-31] MEDS: RIVAROXABAN 15 MG TAB PO SCH (08:41)
[2018-08-31] MEDS: LINAGLIPTIN 5 MG TABLET PO SCH (08:41)
[2018-08-31] MEDS: INSULIN ASPART 100 UNIT/ML 1 ML 10 ML VIAL SQ SCH ×2 (08:41→13:07)
[2018-08-31] MEDS: DOCUSATE 100 MG CAP PO SCH (08:41)
[2018-08-31] MEDS ORDERED: RIVAROXABAN 15 MG TAB PO SCH (09:00)
[2018-08-31] MEDS ORDERED: LINAGLIPTIN 5 MG TABLET PO SCH (09:00)
[2018-08-31] MEDS ORDERED: CHOLECALCIFEROL 1,000 UNIT TAB PO SCH (09:00)
[2018-08-31] MEDS ORDERED: ATORVASTATIN 10 MG TAB PO SCH (09:00)
[2018-08-31] MEDS ORDERED: amLODIPine 5 MG TAB PO SCH (09:00)
[2018-08-31] MEDS ORDERED: DOCUSATE 100 MG CAP PO SCH (09:00)
[2018-08-31] MEDS ORDERED: POLYETHYLENE GLYCOL 3350 17 GM POWD.PACK PO SCH (09:00)
[2018-08-31 09:13] LABS: Calcium 9.5 mg/dL (8.4-10.2); Potassium 4.6 mmol/L (3.5-5.1)
[2018-08-31 14:44] VITALS: BP 155/77; PULSE 92; TEMP 98.9
--- NOTE | 2018-08-31 15:25 | P.DS ---
Providers Date of admission: 08/30/18 13:18 Expected date of discharge: 08/31/18 Attending physician: Kellie Villa Primary care physician: [facility] Course: Ms. Potter is an 87-year-old female with a past medical history of coronary artery disease, habitus mellitus, hypertension, hyperlipidemia, type 2 diabetes mellitus coming to the hospital with a chief complaint of generalized weakness. Patient states that she was not able to sleep last night and so came into the emergency department. Patient denies having any chest pain, difficulty in breathing or lower extremity swelling. Patient denies having any cough or sputum production. Patient denies having any nausea vomiting or abdominal pain. No constipation or diarrhea. No dysuria or hematuria. Patient walks with the roller walker her due to history of chronic low back pain. Patient mentions that she has generalized weakness but she came to the ER as she was not able to sleep last night. In the ER patient had blood work done with elevated creatinine from her baseline along with hyperkalemia. So she has been admitted for acute kidney injury. Patient was observed in the hospital overnight and she was given IV fluids after which her creatinine went down from 1.57-1.08 and her potassium from 5.6- 4.6. Patient also had urinalysis done which was negative for UTI. But the patient has been taking ciprofloxacin as prescribed by the urgent care facility that she was seen couple of days back. This morning patient is sitting up in the bed appears to be no acute distress. Patient states that she took melatonin last night and was able to get 2-4 hours of sleep. No other active complaints. She states that she is back to normal and wants to go home today. Vital Signs - 24 hr 08/30/18 08/31/18 08/31/18 22:25 05:41 14:03 Temperature 98.4 F 97.1 F L 98.9 F Pulse Rate [ 78 96 92 Pulse Oximetery ] Respiratory 16 16 16 Rate Blood Pressure 160/70 145/88 155/77 [Left Arm] O2 Sat by Pulse 93 L 100 98 Oximetry GEN. APPEARANCE: alert, in no apparent distress HEAD EXAM: atraumatic, normocephalic, normal inspection EYE EXAM: No pallor. No icterus ENT EXAM: normal exam, mucous membranes moist NECK EXAM: No JVD. No lymphadenopathy. RESPIRATORY EXAM: Bilateral breath sounds are positive. No wheeze or crackles. CARDIOVASCULAR EXAM: S1 and S2 heard. GI/ABDOMINAL EXAM: soft, normal bowel sounds. Absent: distended, tenderness, guarding, rebound, rigid EXTREMITIES EXAM: No peripheral edema. NEUROLOGICAL EXAM: alert, oriented X3, no focal neurological deficits PSYCHIATRIC EXAM: normal affect, normal mood SKIN EXAM: warm, dry, intact, normal color. Absent: rash DISCHARGE DIAGNOSIS Acute kidney injury-probably secondary to dehydration - resolved Hyperkalemia - resolved History of coronary artery disease status post CABG Type 2 diabetes mellitus Hypertension Hyperlipidemia CK D stage II Recent UTI Plan: Patient responded well to IV fluids and her creatinine and potassium to her baseline. She is being discharged home in a stable condition. Patient is advised to continue taking her ciprofloxacin for a recent UTI. She is advised to follow up with her PCP in 2-3 days. Patient Condition at Discharge: Stable Plan - Discharge Summary Discharge Rx Participant: No New Discharge Prescriptions: Continue Cholecalciferol [Vitamin D3] 2,000 unit PO DAILY Rivaroxaban [Xarelto] 15 mg PO DAILY amLODIPine [Norvasc] 5 mg PO DAILY Simvastatin [Zocor] 20 mg PO DAILY Linagliptin [Tradjenta] 5 mg PO DAILY traMADol HCL [Ultram] 100 mg PO Q6HR PRN PRN Reason: Pain Polyethylene Glycol 3350 [Miralax] 17 gm PO DAILY #20 packet Pantoprazole [Protonix] 40 mg PO BID tablet. Lisinopril [Zestril] 5 mg PO DAILY Docusate [Colace] 100 mg PO BID PRN PRN Reason: Constipation Ciprofloxacin HCl [Cipro] 500 mg PO Q12H Discharge Medication List Cholecalciferol [Vitamin D3] 2,000 unit PO DAILY 09/24/15 [History] Linagliptin [Tradjenta] 5 mg PO DAILY 06/18/18 [History] Rivaroxaban [Xarelto] 15 mg PO DAILY 06/18/18 [History] Simvastatin [Zocor] 20 mg PO DAILY 06/18/18 [History] amLODIPine [Norvasc] 5 mg PO DAILY 06/18/18 [History] traMADol HCL [Ultram] 100 mg PO Q6HR PRN 06/24/18 [History] Polyethylene Glycol 3350 [Miralax] 17 gm PO DAILY #20 packet 07/03/18 [Rx] Pantoprazole [Protonix] 40 mg PO BID tablet. 07/08/18 [Rx] Lisinopril [Zestril] 5 mg PO DAILY 08/16/18 [History] Docusate [Colace] 100 mg PO BID PRN 08/30/18 [History] Ciprofloxacin HCl [Cipro] 500 mg PO Q12H 08/31/18 [History] Follow up Appointment(s)/Referral(s): Jason Ross DO [Primary Care Provider] - 1-2 days Patient Instructions/Handouts: Dehydration (DC), Acute Kidney Injury (DC) Activity/Diet/Wound Care/Special Instructions: * INCREASE ORAL WATER INTAKE TO PREVENT RECURRING KIDNEY INJURY. * (CDC recommends 8 glasses a day.) 6mg Melatonin nightly if needed for sleep. Available over the counter. Discharge Disposition: HOME SELF-CARE
[2018-09-03 18:41] LABS: Glucose,Whole Blood 199 mg/dL (75-99)
[2018-09-03 18:41] LABS: Glucose,Whole Blood 143 mg/dL (75-99)
[2018-09-03 18:41] LABS: Glucose,Whole Blood 146 mg/dL (75-99)
[2018-09-03 18:41] LABS: Glucose,Whole Blood 117 mg/dL (75-99)
== END 2018-08-31 16:29 | disposition home or self-care (01) ==
LOC: EC 09:20 → 4MS4W 13:18
PROVIDERS: ADMIT Internal Medicine; ATTEND Internal Medicine
DX: N17.9 Acute kidney failure, unspecified (principal); E86.0 Dehydration; I12.9 Hypertensive chronic kidney disease with stage 1 through stage 4 chronic kidney disease, or unspecified chronic kidney disease; E11.22 Type 2 diabetes mellitus with diabetic chronic kidney disease; N18.2 Chronic kidney disease, stage 2 (mild); N39.0 Urinary tract infection, site not specified; R61 Generalized hyperhidrosis; R26.2 Difficulty in walking, not elsewhere classified; I25.10 Atherosclerotic heart disease of native coronary artery without angina pectoris; E78.5 Hyperlipidemia, unspecified; E87.5 Hyperkalemia; G47.00 Insomnia, unspecified; G89.29 Other chronic pain; M54.5 Low back pain; H26.9 Unspecified cataract; Z79.01 Long term (current) use of anticoagulants; Z79.84 Long term (current) use of oral hypoglycemic drugs; Z79.899 Other long term (current) drug therapy; Z88.8 Allergy status to other drugs, medicaments and biological substances; I25.2 Old myocardial infarction; Z95.1 Presence of aortocoronary bypass graft; Z91.81 History of falling; Z87.891 Personal history of nicotine dependence; Z80.8 Family history of malignant neoplasm of other organs or systems
CPT/HCPCS: 96361 ×2; 96360; 99285; 36415; 93005; 80053; 80048; 82550; 82553; 83735; 85025; 81003; 87502; 71046; G0378 ×2

== ENCOUNTER 2018-09-11 16:26 | Inpatient (IN) | payer MEDICARE, BC ==
[2018-09-11] MEDS ORDERED: SODIUM CHLORIDE 0.9% 500 ML 500 ML IV ONE (16:54)
--- NOTE | 2018-09-11 16:54 | ED ---
General Adult HPI - General Chief complaint: Altered Mental Status Stated complaint: HEADACHE, ALTERED Source: patient, EMS Mode of arrival: EMS Limitations: altered mental status - History of Present Illness Initial comments: Dictation was produced using [employer] dictation software. please excuse any grammatical, word or spelling errors. Chief Complaint: 87-year-old female past medical history of coronary artery disease, diabetes, dyslipidemia, IA presents with acute onset left retro- orbital headache. History of Present Illness: He 87-year-old female. She was brought in by family. They were at [facility] earlier today when at approximately 2 PM she began experiencing severe left retro-orbital headache. According to family she does not normally have issues with headache. Patient is a poor historian and unable to provide details of HPI at this time. Chart review shows that patient has recently been to the emergency department on multiple occasions. Most recently patient was admitted to the hospital 11 days ago for generalized weakness and dehydration. Unable to determine given patient's mental status if she is having some worsening headache with chewing. Or vision loss. - Related Data Home Medications Medication Instructions Recorded Confirmed Cholecalciferol [Vitamin D3] 2,000 unit PO DAILY 09/24/15 09/11/18 Linagliptin [Tradjenta] 5 mg PO DAILY 06/18/18 09/11/18 Rivaroxaban [Xarelto] 15 mg PO DAILY 06/18/18 09/11/18 Simvastatin [Zocor] 20 mg PO DAILY 06/18/18 09/11/18 amLODIPine [Norvasc] 5 mg PO DAILY 06/18/18 09/11/18 traMADol HCL [Ultram] 100 mg PO Q6HR PRN 06/24/18 09/11/18 Lisinopril [Zestril] 5 mg PO DAILY 08/16/18 09/11/18 Ferrous Sulfate [Feosol] 325 mg PO DAILY 09/11/18 09/11/18 Previous Rx's Medication Instructions Recorded Polyethylene Glycol 3350 [Miralax] 17 gm PO DAILY #20 packet 07/03/18 Pantoprazole [Protonix] 40 mg PO BID tablet. 07/08/18 Allergies Allergy/AdvReac Type Severity Reaction Status Date / Time zolpidem [From Ambien] AdvReac Hallucinati Verified 09/11/18 16:47 ons Review of Systems ROS Statement: Those systems with pertinent positive or pertinent negative responses have been documented in the HPI. ROS Other: All systems not noted in ROS Statement are negative. Past Medical History Past Medical History: Coronary Artery Disease (CAD), Chest Pain / Angina, Diabetes Mellitus, Hyperlipidemia, Hypertension, Myocardial Infarction (IA), Syncope Additional Past Medical History / Comment(s): NIDDM type II, vertigo/weakness past 5 years and pt states she has had tests but no one knows why, weakness, gait disturbance, falls, bilateral cataracts, dehydration Last Myocardial Infarction Date:: 1995 History of Any Multi-Drug Resistant Organisms: None Reported Past Surgical History: Adenoidectomy, Coronary Bypass/CABG, Heart Catheterization, Orthopedic Surgery, Tonsillectomy Additional Past Surgical History / Comment(s): 3 vessel CABG 1995 in [place], carotid endartectomy 2015, ORIF L ankle d/t fracture. Past Anesthesia/Blood Transfusion Reactions: No Reported Reaction Past Psychological History: No Psychological Hx Reported Smoking Status: Former smoker Past Alcohol Use History: None Reported Past Drug Use History: None Reported - Past Family History Mother Family Medical History: No Reported History Father Family Medical History: No Reported History Son(s) Family Medical History: Cancer Additional Family Medical History / Comment(s): Throat cancer General Exam - General Exam Comments Initial Comments: PHYSICAL EXAM: General Impression: Alert and oriented x3, not in acute distress HEENT: Normocephalic atraumatic, extra-ocular movements intact, pupils equal and reactive to light bilaterally, mucous membranes moist, tenderness to palpation over the temporal artery. Cardiovascular: Heart regular rate and rhythm, S1&S2 audible, no murmurs, rubs or gallops Chest: Lungs clear to auscultation bilaterally, no rhonchi, no wheeze, no rales Abdomen: Bowel sounds present, abdomen soft, non-tender, non-distended, no organomegaly Musculoskeletal: Pulses present and equal in all extremities, no peripheral edema Motor: Power 5/5 bilaterally, no focal deficits noted Neurological: CN II-XII grossly intact, slightly aphasic, was FROM is grossly Skin: Intact with no visualized rashes Limitations: altered mental status Course Vital Signs 09/11/18 09/11/18 09/11/18 16:33 16:34 16:40 Temperature 98.7 F Pulse Rate 95 92 Respiratory 18 13 Rate Blood Pressure 227/98 214/91 O2 Sat by Pulse 95 98 99 Oximetry 09/11/18 09/11/18 09/11/18 16:50 17:00 17:10 Temperature Pulse Rate 91 91 Respiratory 17 20 Rate Blood Pressure 223/94 223/94 223/94 O2 Sat by Pulse 98 92 L Oximetry 09/11/18 09/11/18 09/11/18 17:16 17:20 17:30 Temperature Pulse Rate 98 90 98 Respiratory 18 21 24 Rate Blood Pressure 219/191 219/191 219/191 O2 Sat by Pulse 99 100 99 Oximetry 09/11/18 09/11/18 09/11/18 17:40 17:50 18:00 Temperature Pulse Rate 89 87 89 Respiratory 20 18 15 Rate Blood Pressure 214/91 211/88 211/88 O2 Sat by Pulse 99 98 Oximetry 09/11/18 09/11/18 09/11/18 18:10 18:20 18:30 Temperature Pulse Rate 92 93 95 Respiratory 18 12 14 Rate Blood Pressure 202/75 196/79 196/79 O2 Sat by Pulse 99 99 98 Oximetry 09/11/18 18:38 Temperature Pulse Rate 93 Respiratory 18 Rate Blood Pressure 214/81 O2 Sat by Pulse 100 Oximetry Medical Decision Making - Medical Decision Making ED course: 87-year-old female presents with chief complaint of 3 hours of left retro-orbital headache. As upon arrival shows blood pressure 227/ 98.Narrative evaluation obtained. Mild leukocytosis of 11.0 lymph is secondary to stress. Rest of CBC unremarkable. Coag panel unremarkable. Metabolic panel shows no acute abnormalities. Patient is slight bump in renal markers. Urinalysis shows 14 white blood cells. She given 1 g of ceftriaxone. The vital signs are obtained. Patient had persistent elevated blood pressures. Clinical presentation consistent with hypertensive encephalopathy. Patient given bolus dose of labetalol started on infusion. Discussed patient case with neurologist who is agreeable with plan. Patient to be admitted to Dr. Chavez. We will place her on cardiac telemetry. He was stable medical condition. Blood pressure is improved after labetalol bolus. - Lab Data Result diagrams: 09/11/18 16:47 09/11/18 16:47 Lab Results 09/11/18 09/11/18 09/11/18 Range/Units 16:46 16:47 16:47 WBC 11.0 H (3.8-10.6) k/uL RBC 4.99 (3.80-5.40) m/uL Hgb 13.5 (11.4-16.0) gm/dL Hct 43.4 (34.0-46.0) % MCV 86.9 (80.0-100.0) fL MCH 27.0 (25.0-35.0) pg MCHC 31.1 (31.0-37.0) g/dL RDW 16.3 H (11.5-15.5) % Plt Count 333 (150-450) k/uL Neutrophils % 79 % Lymphocytes % 10 % Monocytes % 6 % Eosinophils % 3 % Basophils % 1 % Neutrophils # 8.6 H (1.3-7.7) k/uL Lymphocytes # 1.1 (1.0-4.8) k/uL Monocytes # 0.7 (0-1.0) k/uL Eosinophils # 0.3 (0-0.7) k/uL Basophils # 0.1 (0-0.2) k/uL Anisocytosis Slight ESR 28 H (0-20) mm/hr PT (9.0-12.0) sec INR (<1.2) APTT (22.0-30.0) sec Sodium 139 (137-145) mmol/L Potassium 4.3 (3.5-5.1) mmol/L Chloride 103 (98-107) mmol/L Carbon Dioxide 24 (22-30) mmol/L Anion Gap 12 mmol/L BUN 16 (7-17) mg/dL Creatinine 1.18 H (0.52-1.04) mg/dL Est GFR (CKD-EPI)AfAm 48 (>60 ml/min/1.73 sqM) Est GFR (CKD-EPI)NonAf 42 (>60 ml/min/1.73 sqM) Glucose 187 H (74-99) mg/dL POC Glucose (mg/dL) 171 H (75-99) mg/dL POC Glu Inspector Set Up And Lay Out ID Natalio Rodriguez Calcium 9.8 (8.4-10.2) mg/dL Total Bilirubin 0.5 (0.2-1.3) mg/dL AST 21 (14-36) U/L ALT 33 (9-52) U/L Alkaline Phosphatase 51 (38-126) U/L Total Protein 7.2 (6.3-8.2) g/dL Albumin 4.0 (3.5-5.0) g/dL Urine Color Urine Appearance (Clear) Urine pH (5.0-8.0) Ur Specific Cerulean (1.001-1.035) Urine Protein (Negative) Urine Glucose (UA) (Negative) Urine Ketones (Negative) Urine Blood (Negative) Urine Nitrite (Negative) Urine Bilirubin (Negative) Urine Urobilinogen (<2.0) mg/dL Ur Leukocyte Esterase (Negative) Urine RBC (0-5) /hpf Urine WBC (0-5) /hpf Ur Squamous Epith Cells (0-4) /hpf Urine Bacteria (None) /hpf Urine Mucus (None) /hpf 09/11/18 09/11/18 Range/Units 16:47 17:12 WBC (3.8-10.6) k/uL RBC (3.80-5.40) m/uL Hgb (11.4-16.0) gm/dL Hct (34.0-46.0) % MCV (80.0-100.0) fL MCH (25.0-35.0) pg MCHC (31.0-37.0) g/dL RDW (11.5-15.5) % Plt Count (150-450) k/uL Neutrophils % % Lymphocytes % % Monocytes % % Eosinophils % % Basophils % % Neutrophils # (1.3-7.7) k/uL Lymphocytes # (1.0-4.8) k/uL Monocytes # (0-1.0) k/uL Eosinophils # (0-0.7) k/uL Basophils # (0-0.2) k/uL Anisocytosis ESR (0-20) mm/hr PT 10.3 (9.0-12.0) sec INR 1.0 (<1.2) APTT 26.8 (22.0-30.0) sec Sodium (137-145) mmol/L Potassium (3.5-5.1) mmol/L Chloride (98-107) mmol/L Carbon Dioxide (22-30) mmol/L Anion Gap mmol/L BUN (7-17) mg/dL Creatinine (0.52-1.04) mg/dL Est GFR (CKD-EPI)AfAm (>60 ml/min/1.73 sqM) Est GFR (CKD-EPI)NonAf (>60 ml/min/1.73 sqM) Glucose (74-99) mg/dL POC Glucose (mg/dL) (75-99) mg/dL POC Glu Inspector Set Up And Lay Out ID Calcium (8.4-10.2) mg/dL Total Bilirubin (0.2-1.3) mg/dL AST (14-36) U/L ALT (9-52) U/L Alkaline Phosphatase (38-126) U/L Total Protein (6.3-8.2) g/dL Albumin (3.5-5.0) g/dL Urine Color Light Yellow Urine Appearance Cloudy H (Clear) Urine pH 7.5 (5.0-8.0) Ur Specific Cerulean 1.006 (1.001-1.035) Urine Protein 2+ H (Negative) Urine Glucose (UA) Negative (Negative) Urine Ketones Negative (Negative) Urine Blood Negative (Negative) Urine Nitrite Negative (Negative) Urine Bilirubin Negative (Negative) Urine Urobilinogen <2.0 (<2.0) mg/dL Ur Leukocyte Esterase Small H (Negative) Urine RBC 1 (0-5) /hpf Urine WBC 14 H (0-5) /hpf Ur Squamous Epith Cells 6 H (0-4) /hpf Urine Bacteria Rare H (None) /hpf Urine Mucus Rare H (None) /hpf Disposition Clinical Impression: Hypertensive urgency Disposition: ADMITTED IP TO THIS [facility] Condition: Fair Referrals: Jason Ross DO [Primary Care Provider] - 1-2 days Decision Time: 19:07
[2018-09-11] MEDS ORDERED: METOCLOPRAMIDE 5 MG/ML 2 ML VIAL IVP STA (16:55)
[2018-09-11] MEDS ORDERED: diphenhydrAMINE 50 MG/ML 1 ML VIAL IVP STA (16:55)
[2018-09-11] MEDS ORDERED: ACETAMINOPHEN IV (For NPO) 1,000 MG in EMPTY BAG 1 BAG IVPB STA (17:01)
--- NOTE | 2018-09-11 17:06 | CT ---
EXAMINATION TYPE: CT brain wo con DATE OF EXAM: 09/11/2018 COMPARISON: 08/16/2018 HISTORY: Altered mental status. CT DLP: 1290.4 mGycm Automated exposure control for dose reduction was used. FINDINGS: There is cerebral cortical atrophy. There is enlargement of the ventricles. There is no mass effect n or midline shift. There is no sign of intracranial hemorrhage. Calvarium is intact. IMPRESSION: CEREBRAL ATROPHY. THERE IS PROBABLY CHRONIC SMALL VESSEL ISCHEMIA. NO ACUTE INTRACRANIAL ABNORMALITY. NO CHANGE.
[2018-09-11 17:11] LABS: Anisocytosis Slight; Basophils # (A) 0.1 k/uL (0-0.2); Basophils % (A) 1 %; Eosinophils # (A) 0.3 k/uL (0-0.7); Eosinophils % (A) 3 %; HCT 43.4 % (34.0-46.0); HGB 13.5 gm/dL (11.4-16.0); Lymphocytes # (A) 1.1 k/uL (1.0-4.8); Lymphocytes % (A) 10 %; MCHC 31.1 g/dL (31.0-37.0); MCV 86.9 fL (80.0-100.0); Mean Platelet Volume 7.8; Monocytes # (A) 0.7 k/uL (0-1.0); Monocytes % (A) 6 %; Neutrophils # (A) 8.6 k/uL (1.3-7.7); Neutrophils % (A) 79 %; Platelet Count 333 k/uL (150-450); RBC 4.99 m/uL (3.80-5.40); RDW 16.3 % (11.5-15.5)
--- NOTE | 2018-09-11 17:16 | XR ---
EXAMINATION TYPE: XR chest 2V DATE OF EXAM: 09/11/2018 COMPARISON: 08/30/2018 HISTORY: Altered mental status TECHNIQUE: Frontal and lateral views of the chest are obtained. FINDINGS: There is no heart failure nor confluent pneumonic infiltrate. Costophrenic angles are alvaro r. Heart size is normal. There are sternal wires. Thoracic aorta is atheromatous. IMPRESSION: No active cardiopulmonary disease. Normal heart. No change.
[2018-09-11 17:20] LABS: Partial Thromboplastin Time 26.8 sec (22.0-30.0); Prothrombin Time 10.3 sec (9.0-12.0)
[2018-09-11 17:29] LABS: Calcium 9.8 mg/dL (8.4-10.2); Potassium 4.3 mmol/L (3.5-5.1); Total Bilirubin 0.5 mg/dL (0.2-1.3); Total Protein 7.2 g/dL (6.3-8.2)
[2018-09-11 17:31] LABS: Appearance,Urine Cloudy (Clear); Bacteria,Urine Rare /hpf; Bilirubin,Urine Negative (Negative); Blood,Urine Negative (Negative); Color,Urine Light Yellow; Glucose,Urine (UA) Negative (Negative); Ketones,Urine Negative (Negative); Leukocyte Esterase,Urine Small (Negative); Mucus,Urine Rare /hpf; Nitrite,Urine Negative (Negative); PH, Urine 7.5 (5.0-8.0); Protein,Urine 2+ (Negative); RBC,Urine 1 /hpf (0-5); Specific Gravity,Urine 1.006 (1.001-1.035); Squamous Epithelial Cell,Urine 6 /hpf (0-4); Urobilinogen,Urine <2.0 mg/dL (<2.0)
[2018-09-11] MEDS ORDERED: LABETALOL SYRINGE 5 MG/ML IVP STA (18:19)
[2018-09-11] MEDS ORDERED: LABETALOL 100 MG in SODIUM CHLORIDE 0.9% 80 ML IV ONE (18:20)
[2018-09-11 18:31] LABS: Erythrocyte Sedimentation Rate 28 mm/hr (0-20)
[2018-09-11 18:56] LABS: Glucose,Whole Blood 171 mg/dL (75-99)
[2018-09-11] MEDS ORDERED: NALOXONE 0.4 MG/ML 1 ML VIAL IV PRN (19:03)
[2018-09-11] MEDS ORDERED: traMADol 50 MG TAB PO PRN (21:42)
[2018-09-11] MEDS ORDERED: MAGNESIUM HYDROXIDE 2,400 MG/10 ML CUP PO PRN (21:44)
[2018-09-11] MEDS ORDERED: ALPRAZolam 0.25 MG TAB PO PRN (21:44)
[2018-09-11] MEDS ORDERED: ONDANSETRON 4 MG/2 ML VIAL IVP PRN (21:44)
[2018-09-11] MEDS ORDERED: LACTULOSE 20 GM/30 ML CUP PO PRN (21:44)
[2018-09-11] MEDS ORDERED: CALCIUM CARBONATE 500 MG CHEWABLE PO PRN (21:44)
[2018-09-11] MEDS ORDERED: ACETAMINOPHEN TAB 325 MG TAB PO PRN (21:44)
[2018-09-11] MEDS ORDERED: MELATONIN 3 MG TABLET PO PRN (21:44)
[2018-09-11] MEDS: PANTOPRAZOLE 40 MG TABLET PO SCH (22:44)
[2018-09-11] MEDS: LISINOPRIL 5 MG TAB PO SCH (22:46)
[2018-09-11] MEDS: amLODIPine 5 MG TAB PO SCH (22:46)
--- NOTE | 2018-09-11 22:47 | HP ---
HISTORY AND PHYSICAL DATE OF ADMISSION: 09/11/2018 PRESENTING COMPLAINT: Headache. HISTORY OF PRESENTING COMPLAINT: This is a very pleasant 87-year-old patient who follows with Dr. Ross. Chronic stable medical conditions include hyperlipidemia, diabetes, coronary artery disease, paroxysmal atrial fibrillation. 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 Yesterday morning patient developed severe pain behind the left eye which was rather sharp and constant. There was no fever or chills. No sensitivity on the scalp. No change in vision. No focal weakness otherwise. She presented to the ER. In the ER, initial blood pressure was 219/191. Repeat was 219/191. Patient was seen by the ER physician, Dr. Stinson, and patient was given IV Tylenol, given IV Reglan 1 dose, given 20 mg of IV push labetalol, and for a short time was put on a labetalol drip. Patient's blood pressure did improve, and by evening it had come down to 137/78. Later, a short time ago, patient's blood pressure again went up. When I went to see the patient, she was again having pain. Patient did have a CT scan in the ER that was negative. I did have Dr. Stinson speak to Dr. Morrissey from Neurology to see if there was anything different to be done. He said to admit the patient and follow from there. Patient otherwise appears rather comfortable. REVIEW OF SYSTEMS: CONSTITUTIONAL: None. HEENT: As above. RESPIRATORY: None. CARDIOVASCULAR: None. GASTROINTESTINAL: None. GENITOURINARY: None. MUSCULOSKELETAL: None. DERMATOLOGICAL: None. HEMATOLOGICAL: None. LYMPHATICS: None. PSYCHIATRY: None. NEUROLOGICAL: As above. No focal symptoms. PAST MEDICAL HISTORY: 1. Hypertension. 2. Hyperlipidemia. 3. Diabetes. 4. Coronary artery disease. 5. Paroxysmal atrial fibrillation. 6. Bilateral cataracts. PAST SURGICAL HISTORY: 1. Adenoidectomy. 2. Coronary artery bypass. 3. Orthopedic surgery. 4. Tonsillectomy. 5. Three-vessel bypass in in [place]. 6. Right carotid endarterectomy in 2015. 7. ORIF of the left ankle with fracture. SOCIAL HISTORY: Patient lives by herself. Daughter lives down the hallway. Has a walker. Patient smoked for close to 66 years, stopped in 2016. No alcohol. FAMILY HISTORY: Throat cancer. HOME MEDICATIONS: 1. Norvasc 5 mg a day. 2. Xarelto 15 mg a day. 3. MiraLAX 17 grams p.o. daily. 4. Iron 325 p.o. daily. 5. Vitamin D3 2000 units p.o. daily. 6. Ultram 100 mg p.o. q.6 p.r.n. 7. Zocor 20 mg p.o. daily. 8. Protonix 40 mg b.i.d. 9. Lisinopril 5 mg p.o. daily. 10.Tradjenta 5 mg p.o. daily. ALLERGIES: AMBIEN, causing hallucinations. Not true. PHYSICAL EXAMINATION: VITAL SIGNS ON PRESENTATION: Temperature 98.7, pulse 95, respiration 18, blood pressure 227/98, pulse ox 95% on room air. GENERAL APPEARANCE: Average build. Lying in bed, not in distress. EYES: Pupils equal. Conjunctivae normal. HEENT: External appearance of nose and ears normal. Oral cavity normal. NECK: JVD not raised. Mass not palpable. RESPIRATORY: Effort normal. LUNGS: Slightly decreased breath sounds. CARDIOVASCULAR: First and second sounds normal. No edema. ABDOMEN: Soft, non-tender. Liver and spleen not palpable. LYMPHATIC: No lymph node palpable in neck or axillae. PSYCHIATRY: Alert and oriented x3. Mood and affect normal. NEUROLOGICAL: Pupils equal. Cranial nerves grossly intact. Power and sensation grossly intact. No tenderness on the scalp. INVESTIGATIONS: White count 11, hemoglobin 13.5, potassium 4.3, BUN 16, creatinine 1.18. EKG tracing, personally reviewed by me, shows normal sinus rhythm with some PVCs. Chest x-ray film, personally reviewed by me, shows slight cardiomegaly, no venous prominence. ASSESSMENT: 1. Severe cephalgia with pain localized behind the left eye with no visual changes, no scalp tenderness, no other focal signs. At this point it is difficult to say if the headache is from the high blood pressure or vice versa. Patient did have a CT scan of the brain in the ER that was negative. We will do a dedicated head CTA to make sure there is no aneurysm behind the eye, given the history of AV malformation in the past in the colon/cecum. 2. Hypertensive emergency, present on admission. 3. Hyperlipidemia. 4. Diabetes mellitus, type 2, on oral hypoglycemic. 5. Coronary artery disease. 6. Paroxysmal atrial fibrillation, chronically on Xarelto. PLAN: Home medications will be resumed. Will keep a close eye on patient's blood pressure. Will also add oral labetalol. Will do a CT angio of the brain to rule out any aneurysm. Care was discussed with the patient. The CT angio will be ordered STAT. MMODL / IJN: [id number] /
--- NOTE | 2018-09-11 23:01 | CT ---
EXAMINATION TYPE: CT angio head DATE OF EXAM: 09/11/2018 9:47 PM COMPARISON: None HISTORY: headache CT DLP: 917.6 mGycm Automated exposure control for dose reduction was used. TECHNIQUE: Performed with IV Contrast, patient injected with 65 mL of Isovue 370. . FINDINGS: There are 3-D post processed images. There is arterial flow in the anterior middle and posterior cerebral arteries. There is arterial flow in the vertebrobasilar artery system. Left vertebral artery is larger than the right. I see no evide nce of spasm. There is no mass effect. There is no evidence of aneurysm or neovascularity. There is n ormal contrast opacification of the venous sinuses. There is enlargement of the ventricles. There is cerebral atrophy. There is no evidence of arterial stenosis. IMPRESSION: NEGATIVE CT ANGIOGRAM OF THE BRAIN.
[2018-09-12 05:48] LABS: Glucose,Whole Blood 185 mg/dL (75-99)
[2018-09-12] MEDS ORDERED: POLYETHYLENE GLYCOL 3350 17 GM POWD.PACK PO SCH (09:00)
[2018-09-12] MEDS ORDERED: ATORVASTATIN 10 MG TAB PO SCH (09:00)
[2018-09-12] MEDS ORDERED: LINAGLIPTIN 5 MG TABLET PO SCH (09:00)
[2018-09-12] MEDS: LISINOPRIL 5 MG TAB PO SCH (09:00)
[2018-09-12] MEDS ORDERED: RIVAROXABAN 15 MG TAB PO SCH (09:00)
[2018-09-12] MEDS: amLODIPine 5 MG TAB PO SCH (09:00)
[2018-09-12] MEDS: PANTOPRAZOLE 40 MG TABLET PO SCH (09:01)
[2018-09-12 09:59] VITALS: RESP 20
[2018-09-12 11:53] LABS: Glucose,Whole Blood 172 mg/dL (75-99)
[2018-09-12 15:46] VITALS: BP 137/60; PULSE 82; TEMP 98.6
[2018-09-12] MEDS ORDERED: LISINOPRIL 5 MG TAB PO STA (15:50)
--- NOTE | 2018-09-12 17:30 | P.CNNES ---
History of Present Illness Consult date: 09/12/18 Requesting physician: Luis Alberto Stinson Reason for Consult: hypertensive encephalopathy Chief complaint: retro-orbital headache-severe History of Present Illness: Neurology is consulting on an 87 year old female for hypertensive encephalopathy. patient began having left retro-orbital headache for approximate 3 hours prior to presentation in the ED. On arrival patient's blood pressure was 227/98. Patient also had mild leukocytosis at 11.0. Coag panel was unremarkable. Metabolic panel showed no acute abnormalities. Patient has slight increase in renal markers. Urinalysis showed increase in white blood cells. Patient was given ceftriaxone in the ER. In the ED patient had persistent elevated blood pressures. Patient was given labetalol in the ED. Blood pressure did decrease after labetalol dose as well as patient's symptoms. She was then transferred to the floor for monitoring. On contact, patient was alert and oriented 3, resting in the bed in no acute distress. Patient did have CT of the brain which was unremarkable/ noncontributory. Patient had CT angiogram which was negative. Patient advised provider that for the last 3-5 months she has been experiencing similar type occurrences but to a lower level of intensity. Patient states that they have been occurring approximately 2-4 times per month and she would lie down and take a nap at home for approximately 2-3 hours. On waking, the symptoms would resolve. Patient denies any inciting events or any other triggers. The only abating factors noted would be rest. Patient states she has been having ongoing difficulty with managing her blood pressure. Review of Systems systems not noted in HPI are negative Past Medical History Past Medical History: Coronary Artery Disease (CAD), Chest Pain / Angina, Diabetes Mellitus, Hyperlipidemia, Hypertension, Myocardial Infarction ([place]), Syncope Additional Past Medical History / Comment(s): NIDDM type II, vertigo/weakness past 5 years and pt states she has had tests but no one knows why, weakness, gait disturbance, falls, bilateral cataracts, dehydration Last Myocardial Infarction Date:: 1995 History of Any Multi-Drug Resistant Organisms: None Reported Past Surgical History: Adenoidectomy, Coronary Bypass/CABG, Heart Catheterization, Orthopedic Surgery, Tonsillectomy Additional Past Surgical History / Comment(s): 3 vessel CABG 1995 in [place], R carotid endartectomy 2016, ORIF L ankle d/t fracture. Past Anesthesia/Blood Transfusion Reactions: No Reported Reaction Past Psychological History: No Psychological Hx Reported Additional Psychological History / Comment(s): Pt resides alone in an apartment with her daughter living down the hallway. She has a walker. She no longer drives, her son takes her to appointments. Smoking Status: Former smoker Past Alcohol Use History: None Reported Additional Past Alcohol Use History / Comment(s): Pt started smoking in 1949 and quit in 2015. Past Drug Use History: None Reported Additional Drug Use History / Comment(s): Patient smoked for 60+ years. Quit in 2015 - Past Family History Mother Family Medical History: No Reported History Father Family Medical History: No Reported History Son(s) Family Medical History: Cancer Additional Family Medical History / Comment(s): Throat cancer Medications and Allergies Home Medications Medication Instructions Recorded Confirmed Type Cholecalciferol [Vitamin D3] 2,000 unit PO DAILY 09/24/15 09/11/18 History Linagliptin [Tradjenta] 5 mg PO DAILY 06/18/18 09/11/18 History Rivaroxaban [Xarelto] 15 mg PO DAILY 06/18/18 09/11/18 History Simvastatin [Zocor] 20 mg PO DAILY 06/18/18 09/11/18 History amLODIPine [Norvasc] 5 mg PO DAILY 06/18/18 09/11/18 History traMADol HCL [Ultram] 100 mg PO Q6HR PRN 06/24/18 09/11/18 History Polyethylene Glycol 3350 [Miralax] 17 gm PO DAILY #20 packet 07/03/18 09/11/18 Rx Pantoprazole [Protonix] 40 mg PO BID tablet. 07/08/18 09/11/18 Rx Ferrous Sulfate [Iron (65 MG 325 mg PO DAILY 09/11/18 09/11/18 History Elemental)] Lisinopril [Zestril] 10 mg PO HS #30 tab 09/12/18 Rx Allergies Allergy/AdvReac Type Severity Reaction Status Date / Time zolpidem [From Ambien] AdvReac Hallucinati Verified 09/11/18 16:47 ons Physical Examination - Vital Signs Vital Signs: Vital Signs Temp Pulse Pulse Resp BP BP Pulse Ox 09/12/18 15:43 98.6 F 82 20 137/60 91 L 09/12/18 11:54 98.3 F 76 20 110/53 94 L 09/12/18 08:00 98.4 F 89 20 102/51 94 L 09/12/18 04:00 99.2 F 89 18 136/63 92 L 09/12/18 00:00 98.6 F 99 18 159/90 97 09/11/18 21:00 98.7 F 92 18 125/58 95 09/11/18 20:22 98.3 F 93 18 229/94 96 09/11/18 20:20 87 19 96 09/11/18 20:10 86 12 94 L 09/11/18 20:00 83 25 H 137/78 97 09/11/18 19:50 88 17 137/78 98 09/11/18 19:40 82 18 186/69 98 09/11/18 19:30 89 6 L 176/60 99 09/11/18 19:20 77 20 176/60 98 09/11/18 19:10 84 12 161/54 99 09/11/18 19:00 72 14 151/58 98 09/11/18 18:50 87 11 L 151/58 97 09/11/18 18:40 91 13 214/81 99 09/11/18 18:38 93 18 214/81 100 09/11/18 18:30 95 14 196/79 98 09/11/18 18:20 93 12 196/79 99 09/11/18 18:10 92 18 202/75 99 09/11/18 18:00 89 15 211/88 09/11/18 17:50 87 18 211/88 98 09/11/18 17:40 89 20 214/91 99 09/11/18 17:30 98 24 219/191 99 09/11/18 17:20 90 21 219/191 100 09/11/18 17:16 98 18 219/191 99 Intake and Output 09/12/18 09/12/18 09/12/18 06:59 14:59 22:59 Intake Total 240 Balance 240 Intake: Oral 240 Other: Voiding Method Toilet # Voids 1 1 Weight 59.9 kg General appearance: Alert & oriented x3, no apparent distress. Head: Atraumatic, normocephalic, normal inspection Eyes: PERRLA, EOMI. Ear, nose and throat: Normal exam, mucous membranes moist Neck: Normal inspection, absent tenderness, lymphadenopathy. Respiratory: No increased work of breathing Cardiovascular: Regular rate, rhythm GI/abdominal: No guarding, no rigidity Extremities: moves all extremities Neurological: cranial nerves II through XII intact no lateralizing weakness no seizure activity noted on physical exam no pronator drift and no nystagmus. Strength: full in all 4 extremities Sensation: Left lower extremity: normal Right lower extremity: normal Left upper extremity: normal Right upper extremity:normal Psychological: Mood and Affect appropriate for setting Results - Laboratory Findings CBC and BMP: 09/11/18 16:47 09/11/18 16:47 Abnormal Lab Findings: Abnormal Labs 09/11/18 09/11/18 09/11/18 16:46 16:47 16:47 WBC 11.0 H RDW 16.3 H Neutrophils # 8.6 H ESR 28 H Creatinine 1.18 H Glucose 187 H POC Glucose (mg/dL) 171 H Urine Appearance Urine Protein Ur Leukocyte Esterase Urine WBC Ur Squamous Epith Cells Urine Bacteria Urine Mucus 09/11/18 09/12/18 09/12/18 17:12 05:46 06:10 WBC RDW Neutrophils # ESR 26 H Creatinine Glucose POC Glucose (mg/dL) 185 H Urine Appearance Cloudy H Urine Protein 2+ H Ur Leukocyte Esterase Small H Urine WBC 14 H Ur Squamous Epith Cells 6 H Urine Bacteria Rare H Urine Mucus Rare H 09/12/18 11:13 WBC RDW Neutrophils # ESR Creatinine Glucose POC Glucose (mg/dL) 172 H Urine Appearance Urine Protein Ur Leukocyte Esterase Urine WBC Ur Squamous Epith Cells Urine Bacteria Urine Mucus Assessment and Plan (1) Hypertensive urgency Narrative/Plan: Based on patient's blood pressure and presenting symptoms, patient did experience what appears to be hypertensive urgency. Patient's symptoms resolved with labetalol. Patient is experiencing ongoing difficulty with controlling blood pressure based on patient's own admission during consult interview. Patient will need ongoing management and follow-up with primary care policy writer post discharge to avoid future occurrences. It does appear that the occurrences are becoming more frequent and more intense. status: Deferred to primary team and once discharged her primary care provider. Current Visit: Yes Status: Acute Code(s): I10 - ESSENTIAL (PRIMARY) HYPERTENSION SNOMED Code(s): 996450512 (2) Retro-orbital pain Narrative/Plan: Deferred to primary team, recommend ophthalmology referral or consult for further assessment Current Visit: Yes Status: Acute Code(s): H57.10 - OCULAR PAIN, UNSPECIFIED EYE SNOMED Code(s): 977749985 (3) Headache Narrative/Plan: appears secondary to hypertensive urgency/crisis Managed with labetalol and other medication to facilitate blood pressure control as previously noted Deferred to primary team at this time. Current Visit: No Status: Acute Code(s): R51 - HEADACHE SNOMED Code(s): 45918777 Plan: status: neurology will follow on an as-needed basis. Feel free to contact our office with any further questions or to reconsult if needed at a later time. I have discussed the plan of care with the physician prior to implementation and he agrees with the plan as implemented.
[2018-09-12 17:48] LABS: Glucose,Whole Blood 176 mg/dL (75-99)
--- NOTE | 2018-09-13 02:38 | DS ---
DISCHARGE SUMMARY DATE OF ADMISSION: September 11, 2018. DATE OF DISCHARGE: September 12, 2018. FINAL DIAGNOSES: 1. Hypertensive emergency causing cephalgia. 2. Hyperlipidemia. 3. Diabetes mellitus type 2 on oral hypoglycemics. 4. Coronary artery disease. 5. Paroxysmal atrial fibrillation chronically on Xarelto. HOSPITAL COURSE: The patient presented with blood pressure over 200 with a severe headache. Blood pressure was better controlled by the time of discharge. Did have a CT scan of the brain and also did a CT angio of the brain, both were negative. The patient was seen by Dr. Morrissey from Neurology who cleared the patient to go. The patient had no neurological symptoms. No change in vision otherwise. PHYSICAL EXAMINATION: Temperature 98.6, pulse 82, respiration 20, blood pressure 137/60, lungs are clear. No focal symptoms. LABS: BUN 16, creatinine 1.18. DISCHARGE MEDICATIONS: 1. Vitamin D3 2000 units p.o. daily. 2. Tradjenta 5 mg p.o. daily. 3. Xarelto 50 mg p.o. daily. 4. Zocor 20 mg p.o. daily. 5. Norvasc 5 mg p.o. daily. 6. Ultram 100 mg p.o. q.6h p.r.n. 7. MiraLAX 17 grams p.o. daily. 8. Protonix 40 mg b.i.d. 9. Iron 365 mg p.o. daily. 10.Zestril 10 mg p.o. q.h.s. The patient to follow with pressroom worker in 3 days. Patient to follow up with Dr. Ross in 3 days. Care was discussed with the patient. Copy to Dr. Ross. MMODL / IJN: [id number] /
== END 2018-09-12 18:52 | disposition home or self-care (01) | DRG 305 ==
LOC: EC 16:26 → 3SCARD 19:03
PROVIDERS: ADMIT Hospitalist; ATTEND Hospitalist
DX: I16.1 Hypertensive emergency (principal); E78.5 Hyperlipidemia, unspecified; I25.10 Atherosclerotic heart disease of native coronary artery without angina pectoris; E11.9 Type 2 diabetes mellitus without complications; I48.0 Paroxysmal atrial fibrillation; H26.9 Unspecified cataract; Z95.1 Presence of aortocoronary bypass graft; Z87.891 Personal history of nicotine dependence; Z79.01 Long term (current) use of anticoagulants; Z79.84 Long term (current) use of oral hypoglycemic drugs; Z79.899 Other long term (current) drug therapy; I25.2 Old myocardial infarction; Z80.8 Family history of malignant neoplasm of other organs or systems
CPT/HCPCS: 36415; 70450; 70496; 71046; 80053; 81001; 85025; 85610; 85652; 85730; 87086; 93005

== ENCOUNTER 2018-09-13 20:39 | Emergency (ER) | payer MEDICARE, BC ==
[2018-09-13] MEDS ORDERED: HYDROcodone/APAP 5-325MG 1 EACH TAB PO STA (21:32)
[2018-09-13] MEDS ORDERED: PROPARACAINE 0.5% OPHTH DROPS 15 ML BTL BOTH EYES STA (22:01)
--- NOTE | 2018-09-13 23:57 | ED ---
General Adult HPI - General Chief complaint: Eye Problems Stated complaint: Eye pain Source: patient, RN notes reviewed, old records reviewed Mode of arrival: ambulatory Limitations: no limitations - History of Present Illness Initial comments: 87 year old female patient with past medical history of Hypertension, CHF, and STEMI presents to ED with pain in eyes. Patient was recently seen on 09/11. On 09/11 patient developed severe pain bilaterally left thigh which was sharp and constant she presented to ER. Upon presentation here her blood pressure 219 /191, she was treated for hypertensive emergency. At that time patient had a workup for stroke, which is negative. Patient was admitted to the hospital for one day and discharged with ophthalmology follow-up. Patient returns to ED today with similar pain this time behind her right eye. Patient describes the pain as a pressure. Patient denies any other symptoms nausea vomiting diarrhea , trismus pain and jaw. Patient states that her visual acuity is at baseline. Patient denies chest pain, shortness breath, abdominal pain. Systemic: Pt denies fatigue, myalgia, fever/chills, rash. Pt denies weakness, night sweats, weight loss. Neuro: Pt denies headache, visual disturbances, syncope or pre-syncope. HEENT: Pt denies ocular discharge, otalgia, rhinorrhea, pharyngitis or notable lymphadenopathy. Cardiopulmonary: Pt denies chest pain, SOB, heart palpitations, dyspnea on exertion. Abdominal/GI: Pt denies abdominal pain, n/v/d. : Pt denies dysuria, burning w/ urination, frequency/urgency. Denies new onset urinary or bowel incontinence. MSK: Pt denies myalgia, loss of strength or function in extremities. Neuro: Pt denies new onset weakness, paresthesias. - Related Data Home Medications Medication Instructions Recorded Confirmed Cholecalciferol [Vitamin D3] 2,000 unit PO DAILY 09/24/15 09/11/18 Linagliptin [Tradjenta] 5 mg PO DAILY 06/18/18 09/11/18 Rivaroxaban [Xarelto] 15 mg PO DAILY 06/18/18 09/11/18 Simvastatin [Zocor] 20 mg PO DAILY 06/18/18 09/11/18 amLODIPine [Norvasc] 5 mg PO DAILY 06/18/18 09/11/18 traMADol HCL [Ultram] 100 mg PO Q6HR PRN 06/24/18 09/11/18 Ferrous Sulfate [Iron (65 MG 325 mg PO DAILY 09/11/18 09/11/18 Elemental)] Previous Rx's Medication Instructions Recorded Polyethylene Glycol 3350 [Miralax] 17 gm PO DAILY #20 packet 07/03/18 Pantoprazole [Protonix] 40 mg PO BID tablet. 07/08/18 Lisinopril [Zestril] 10 mg PO HS #30 tab 09/12/18 predniSONE 50 mg PO DAILY #5 tab 09/14/18 Allergies Allergy/AdvReac Type Severity Reaction Status Date / Time zolpidem [From Ambien] AdvReac Hallucinati Verified 09/13/18 20:45 ons Review of Systems ROS Statement: Those systems with pertinent positive or pertinent negative responses have been documented in the HPI. ROS Other: All systems not noted in ROS Statement are negative. Past Medical History Past Medical History: Coronary Artery Disease (CAD), Chest Pain / Angina, Diabetes Mellitus, Hyperlipidemia, Hypertension, Myocardial Infarction ([place]), Syncope Additional Past Medical History / Comment(s): NIDDM type II, vertigo/weakness past 5 years and pt states she has had tests but no one knows why, weakness, gait disturbance, falls, bilateral cataracts, dehydration Last Myocardial Infarction Date:: 1995 History of Any Multi-Drug Resistant Organisms: None Reported Past Surgical History: Adenoidectomy, Coronary Bypass/CABG, Heart Catheterization, Orthopedic Surgery, Tonsillectomy Additional Past Surgical History / Comment(s): 3 vessel CABG 1995 in [place], carotid endartectomy 2015, ORIF L ankle d/t fracture. Past Anesthesia/Blood Transfusion Reactions: No Reported Reaction Past Psychological History: No Psychological Hx Reported Smoking Status: Former smoker Past Alcohol Use History: None Reported Past Drug Use History: None Reported - Past Family History Mother Family Medical History: No Reported History Father Family Medical History: No Reported History Son(s) Family Medical History: Cancer Additional Family Medical History / Comment(s): Throat cancer General Exam - General Exam Comments Initial Comments: Constitutional: NAD, AOX3, Pt has pleasant affect. HEENT: NC/AT, trachea midline, neck supple, no lymphadenopathy. Posterior pharynx non erythematous, without exudates. External ears appear normal, without discharge. Mucous membranes moist. Eyes PERRLA, EOM intact. Funduscopic exam did not display any notable AV nicking, burning about the disc , signs of increased ICP. IOP average of 14 L eye and 10 R eye. Fluorescein stain bilaterally did not display any uptake or abnormality. There is no scleral icterus. No pallor noted. No Trismus or jaw claudication. Patient complained of some minor R temporal tenderness per palpation. Pt states that she had this pain much more severely when she presented to hospital on 09/11. Visual acuity 20/40 bilaterally, 20/40 right, 20/50 left. Patient states the vision is at baseline. Cardiopulmonary: RRR, no murmurs, rubs or gallops, no JVD noted. Lungs CTAB in anterior and posterior brar. No peripheral edema. Abdominal exam: Abdomen soft and non-distended. Abdomen non-tender to palpation in all 4 quadrants. Bowel sounds active in LLQ. No hepatosplenomegaly. No ecchymosis Neuro: CN II-XII intact. No nuchal rigidity. Patient ambulatory without difficulty. MSK: No posterior calf tenderness bilaterally, homans sign negative bilaterally. Posterior tibialis and radial pulse +2 bilaterally. Sensation intact in upper and lower extremities. Full active ROM in upper and lower extremities, 5/5 stregnth. Limitations: no limitations Course Vital Signs 09/13/18 20:41 Temperature 98.7 F Pulse Rate 87 Respiratory 16 Rate Blood Pressure 138/70 O2 Sat by Pulse 99 Oximetry Medical Decision Making - Medical Decision Making 87 year old female patient with past medical history of Hypertension, CHF, and STEMI presents to ED with pain in R eye. Patient was recently seen on 09/11. On 09/11 patient developed severe pain bilaterally left thigh which was sharp and constant she presented to ER. Upon presentation here her blood pressure 219 /191, she was treated for hypertensive emergency. At that time patient had a workup for stroke, which is negative. Patient was admitted to the hospital for one day and discharged with ophthalmology follow-up. Patient returns to ED today with similar pain this time behind her right eye. Patient describes the pain as a pressure. Patient denies any other symptoms. Physical exam displayed - Funduscopic exam did not display any notable AV nicking, burning about the disc, signs of increased ICP. IOP average of 14 L eye and 10 R eye. Fluorescein stain bilaterally did not display any uptake or abnormality. There is no scleral icterus. No pallor noted. Trismus or jaw claudication. Patient complained of some minor R temporal tenderness per palpation. Pt states that she had this pain much more severely when she presented to hospital on 09/11. No other pathologic findings. Patient condition improved with analgesic administration. ESR elevated to 32, CRP elevated 21.4. ESR was 26 yesterday on 09/12. Patient given 125 solumedrol in ED. Patient to be discharged with by 50 of prednisone for 5 days. Patient to follow-up tomorrow with Dr. Fagan for a Temporal artery biopsy outpatient. Pt to follow up with optho tomorrow. Patient to return to ED if new signs develop, or symptoms worsen. Case discussed in depth with Dr. Baum. - Lab Data Lab Results 09/13/18 09/13/18 Range/Units 23:58 23:58 ESR 32 H (0-20) mm/hr C-Reactive Protein 21.4 H (<10.0) mg/L Disposition Clinical Impression: Ophthalmalgia Disposition: HOME SELF-CARE Condition: Good Instructions: Eye Pain (ED) Additional Instructions: Patient to adhere to previously discussed treatment plan and will take medication(s) as directed. Patient to follow up with PCP in 1-2 days. Patient to return to ED if symptoms do not improve. Prescriptions: predniSONE 50 mg PO DAILY #5 tab Is patient prescribed a controlled substance at d/c from ED?: No Referrals: Jason Ross DO [Primary Care Provider] - 1-2 days Dorian Fagan MD [STAFF PHYSICIAN] - 1-2 days Maurizio Rucker MD [STAFF PHYSICIAN] - 1-2 days Time of Disposition: 01:10
[2018-09-14] MEDS ORDERED: MORPHINE SULFATE 4 MG/ML SYRINGE IV STA (00:14)
[2018-09-14] MEDS ORDERED: methylPREDNISolone SOD SUCCI 125 MG/2 ML VIAL IV STA (00:54)
[2018-09-14] MEDS ORDERED: KETOROLAC 30 MG/ML 1 ML VIAL IVP STA (01:00)
[2018-09-14] MEDS ORDERED: ACET/COD 300 MG/30 MG STARTER PACK 6 TAB BTL PO STA (01:13)
--- NOTE | 2018-09-14 01:13 | ED ---
Medical Decision Making - Medical Decision Making pt not driving home. - Lab Data Lab Results 09/13/18 09/13/18 Range/Units 23:58 23:58 ESR 32 H (0-20) mm/hr C-Reactive Protein 21.4 H (<10.0) mg/L Disposition Clinical Impression: Ophthalmalgia Disposition: HOME SELF-CARE Condition: Good Instructions: Eye Pain (ED) Additional Instructions: Patient to adhere to previously discussed treatment plan and will take medication(s) as directed. Patient to follow up with PCP in 1-2 days. Patient to return to ED if symptoms do not improve. Prescriptions: predniSONE 50 mg PO DAILY #5 tab Is patient prescribed a controlled substance at d/c from ED?: No Referrals: Jason Ross DO [Primary Care Provider] - 1-2 days Maurizio Rucker MD [STAFF PHYSICIAN] - 1-2 days Dorian Fagan MD [STAFF PHYSICIAN] - 1-2 days
[2018-09-14 01:20] VITALS: BP 143/79; PULSE 80; RESP 20; TEMP 98
== END 2018-09-14 01:20 | disposition home or self-care (01) ==
LOC: EC 20:39
DX: H57.11 Ocular pain, right eye (principal); R70.0 Elevated erythrocyte sedimentation rate; R79.82 Elevated C-reactive protein (CRP); I25.10 Atherosclerotic heart disease of native coronary artery without angina pectoris; E11.9 Type 2 diabetes mellitus without complications; E78.5 Hyperlipidemia, unspecified; I25.2 Old myocardial infarction; I11.0 Hypertensive heart disease with heart failure; I50.9 Heart failure, unspecified; Z95.1 Presence of aortocoronary bypass graft; Z95.818 Presence of other cardiac implants and grafts; Z87.891 Personal history of nicotine dependence; Z79.01 Long term (current) use of anticoagulants; Z79.84 Long term (current) use of oral hypoglycemic drugs; Z79.899 Other long term (current) drug therapy; Z88.8 Allergy status to other drugs, medicaments and biological substances
CPT/HCPCS: 99284 ×2; 96374 ×2; 96375 ×3; 36415; 85652; 86140; J2270; J2930; J1885

== ENCOUNTER 2019-01-10 11:45 | Emergency (ER) | payer MEDICARE, BC ==
[2019-01-10 12:05] VITALS: BP 165/68; PULSE 85; RESP 18; TEMP 98.6
--- NOTE | 2019-01-10 12:21 | ED ---
General Adult HPI - General Chief complaint: Skin/Abscess/Foreign Body Stated complaint: draining on arm Time Seen by Provider: 01/10/19 12:07 Source: patient, RN notes reviewed Limitations: no limitations - History of Present Illness Initial comments: 88-year-old female presents to the emergency department for a chief complaint of possible area of infection on right arm. Patient states several days ago she hit this against the wall and had a large bruise forearm. Patient states that today she noticed a small 1 cm x 1 cm area of this looks to be draining clear fluid. Feeling member and room is concerned this is infected. Patient denies fevers or chills. Patient denies any pain moving the wrist and her elbow. Denies any spreading or streaking redness.Patient has no other complaints at this time including shortness of breath, chest pain, abdominal pain, nausea or vomiting, headache, or visual changes. - Related Data Home Medications Medication Instructions Recorded Confirmed Cholecalciferol [Vitamin D3] 2,000 unit PO DAILY 09/24/15 09/11/18 Linagliptin [Tradjenta] 5 mg PO DAILY 06/18/18 09/11/18 Rivaroxaban [Xarelto] 15 mg PO DAILY 06/18/18 09/11/18 Simvastatin [Zocor] 20 mg PO DAILY 06/18/18 09/11/18 amLODIPine [Norvasc] 5 mg PO DAILY 06/18/18 09/11/18 traMADol HCL [Ultram] 100 mg PO Q6HR PRN 06/24/18 09/11/18 Ferrous Sulfate [Iron (65 MG 325 mg PO DAILY 09/11/18 09/11/18 Elemental)] Previous Rx's Medication Instructions Recorded Polyethylene Glycol 3350 [Miralax] 17 gm PO DAILY #20 packet 07/03/18 Pantoprazole [Protonix] 40 mg PO BID tablet. 07/08/18 Lisinopril [Zestril] 10 mg PO HS #30 tab 09/12/18 predniSONE 50 mg PO DAILY #5 tab 09/14/18 Allergies Allergy/AdvReac Type Severity Reaction Status Date / Time zolpidem [From Ambien] AdvReac Hallucinati Verified 09/13/18 20:45 ons Review of Systems ROS Statement: Those systems with pertinent positive or pertinent negative responses have been documented in the HPI. ROS Other: All systems not noted in ROS Statement are negative. Past Medical History Past Medical History: Coronary Artery Disease (CAD), Chest Pain / Angina, Diabetes Mellitus, Hyperlipidemia, Hypertension, Myocardial Infarction ([place]), Syncope Additional Past Medical History / Comment(s): NIDDM type II, vertigo/weakness past 5 years and pt states she has had tests but no one knows why, weakness, gait disturbance, falls, bilateral cataracts, dehydration Last Myocardial Infarction Date:: 1995 History of Any Multi-Drug Resistant Organisms: None Reported Past Surgical History: Adenoidectomy, Coronary Bypass/CABG, Heart Catheterization, Orthopedic Surgery, Tonsillectomy Additional Past Surgical History / Comment(s): 3 vessel CABG 1995 in [place], R carotid endartectomy 2015, ORIF L ankle d/t fracture. Past Anesthesia/Blood Transfusion Reactions: No Reported Reaction Past Psychological History: No Psychological Hx Reported Smoking Status: Former smoker Past Alcohol Use History: None Reported Past Drug Use History: None Reported - Past Family History Mother Family Medical History: No Reported History Father Family Medical History: No Reported History Son(s) Family Medical History: Cancer Additional Family Medical History / Comment(s): Throat cancer General Exam Limitations: no limitations General appearance: alert, in no apparent distress Head exam: Present: atraumatic, normocephalic, normal inspection Eye exam: Present: normal appearance, PERRL, EOMI. Absent: scleral icterus, conjunctival injection, periorbital swelling ENT exam: Present: normal exam, mucous membranes moist Neck exam: Present: normal inspection, full ROM. Absent: tenderness, meningismus, lymphadenopathy Respiratory exam: Present: normal lung sounds bilaterally. Absent: respiratory distress, wheezes, rales, rhonchi, stridor Cardiovascular Exam: Present: regular rate, normal rhythm, normal heart sounds. Absent: systolic murmur, diastolic murmur, rubs, gallop, clicks Extremities exam: Present: full ROM (Full range of motion of right wrist and elbow), normal capillary refill (Capillary refill less than 2 seconds, radial pulse 2+ in the right upper extremity and equal bilaterally), other (Patient has a 4 cm x 4 cm area of erythematous ecchymosis noted on the dorsal right wrist. There is a 1 cm x 1 cm area of granulation tissue that is draining clear fluid. No spreading redness or streaking redness. No purulent drainage or abscess present.) Course Vital Signs 01/10/19 12:02 Temperature 98.6 F Pulse Rate 85 Respiratory 18 Rate Blood Pressure 165/68 O2 Sat by Pulse 98 Oximetry Medical Decision Making - Medical Decision Making 88-year-old female presents for possible infection of the right arm. On exam Patient has a 4 cm x 4 cm area of erythematous ecchymosis noted on the dorsal right wrist that occurred after she hit her wrist a few days ago. There is a 1 cm x 1 cm area of granulation tissue that is draining clear fluid. At this time I do not have high suspicion of an infection as is no spreading or streaking redness. This is likely granulation tissue that patient is keeping covered so I cannot dry and heel. Patient does admit she has Discomfort ever since. However patient will be given Keflex due to possibility of underlying infection. Patient will monitor this and return if he has any spreading or streaking redness. She will follow up with primary care in 1-2 days. Disposition Clinical Impression: Cellulitis, Contusion Disposition: HOME SELF-CARE Condition: Good Instructions (If sedation given, give patient instructions): Cellulitis (ED) Additional Instructions: Please take Keflex as directed. Allow 24 hours for antibiotics to start to work. Monitor for spreading or streaking redness or pain in the wrist joint and return if these occur. Try to keep the area uncovered to facilitate healing. Follow-up with primary care in 1-2 days for wound recheck. Is patient prescribed a controlled substance at d/c from ED?: No Referrals: Jason Ross DO [Primary Care Provider] - 1-2 days Time of Disposition: 12:26
[2019-01-10] MEDS ORDERED: CEPHALEXIN 500MG STARTER PACK 4 CAP BTL PO STA (12:22)
== END 2019-01-10 12:55 | disposition home or self-care (01) ==
LOC: EC 11:45
DX: S60.211A Contusion of right wrist, initial encounter (principal); L03.113 Cellulitis of right upper limb; I25.119 Atherosclerotic heart disease of native coronary artery with unspecified angina pectoris; E11.9 Type 2 diabetes mellitus without complications; E78.5 Hyperlipidemia, unspecified; I10 Essential (primary) hypertension; I25.2 Old myocardial infarction; Z87.891 Personal history of nicotine dependence; Z79.01 Long term (current) use of anticoagulants; Z79.84 Long term (current) use of oral hypoglycemic drugs; Z79.899 Other long term (current) drug therapy; Z88.8 Allergy status to other drugs, medicaments and biological substances; Z95.1 Presence of aortocoronary bypass graft; Z95.818 Presence of other cardiac implants and grafts; W22.01XA Walked into wall, initial encounter
CPT/HCPCS: 99283

== ENCOUNTER 2020-02-08 11:07 | Emergency (ER) | payer MEDICARE, BC ==
[2020-02-08 11:19] VITALS: RESP 18; TEMP 98.1
[2020-02-08] MEDS ORDERED: PROPARACAINE 0.5% OPHTH DROPS 15 ML BTL BOTH EYES STA (11:31)
[2020-02-08] MEDS ORDERED: LIDOCAINE 1% INJ 10MG/ML (20 ML MDV) SQ ONE (11:31)
--- NOTE | 2020-02-08 12:08 | ED ---
Eye Problem HPI - General Chief complaint: Eye Problems Stated complaint: Facial Pain Time Seen by Provider: 02/08/20 11:23 Source: patient, family, RN notes reviewed, old records reviewed Mode of arrival: wheelchair Limitations: no limitations - History of Present Illness Initial comments: Patient is an 89-year-old female presents emergency Department today with complaint of right-sided nasal and eye pain. Patient reports that this pain occurred after she had a nasal pharyngeal swab done to test for covert. She reports that she had this test done so she could be scheduled for outpatient surgery next week. She denies any cold-like symptoms. She reports that after the swab was placed in the no she started having severe right eye pain. In her eye was watering. She denies any blurry vision at this time or other complaints. - Related Data Home Medications Medication Instructions Recorded Confirmed Cholecalciferol [Vitamin D3 (25 2,000 unit PO DAILY 09/24/15 09/11/18 Mcg = 1000 Iu)] Linagliptin [Tradjenta] 5 mg PO DAILY 06/18/18 09/11/18 Rivaroxaban [Xarelto] 15 mg PO DAILY 06/18/18 09/11/18 Simvastatin [Zocor] 20 mg PO DAILY 06/18/18 09/11/18 amLODIPine [Norvasc] 5 mg PO DAILY 06/18/18 09/11/18 traMADol HCL [Ultram] 100 mg PO Q6HR PRN 06/24/18 09/11/18 Ferrous Sulfate [Iron (65 MG 325 mg PO DAILY 09/11/18 09/11/18 Elemental)] Previous Rx's Medication Instructions Recorded Polyethylene Glycol 3350 [Miralax] 17 gm PO DAILY #20 packet 07/03/18 Pantoprazole [Protonix] 40 mg PO BID tablet. 07/08/18 Lisinopril [Zestril] 10 mg PO HS #30 tab 09/12/18 predniSONE 50 mg PO DAILY #5 tab 09/14/18 Cephalexin [Keflex] 500 mg PO Q6HR 7 Days cap 01/10/19 Allergies Allergy/AdvReac Type Severity Reaction Status Date / Time zolpidem [From Ambien] AdvReac Hallucinati Verified 09/13/18 20:45 ons Review of Systems ROS Statement: Those systems with pertinent positive or pertinent negative responses have been documented in the HPI. ROS Other: All systems not noted in ROS Statement are negative. Past Medical History Past Medical History: Coronary Artery Disease (CAD), Chest Pain / Angina, Diabetes Mellitus, Hyperlipidemia, Hypertension, Myocardial Infarction ([place]), Syncope Additional Past Medical History / Comment(s): NIDDM type II, vertigo/weakness past 5 years and pt states she has had tests but no one knows why, weakness, gait disturbance, falls, bilateral cataracts, dehydration Last Myocardial Infarction Date:: 1995 History of Any Multi-Drug Resistant Organisms: None Reported Past Surgical History: Adenoidectomy, Coronary Bypass/CABG, Heart Catheterization, Orthopedic Surgery, Tonsillectomy Additional Past Surgical History / Comment(s): 3 vessel CABG 1995 in [place], R carotid endartectomy 2015, ORIF L ankle d/t fracture. Past Anesthesia/Blood Transfusion Reactions: No Reported Reaction Past Psychological History: No Psychological Hx Reported Smoking Status: Former smoker Past Alcohol Use History: None Reported Past Drug Use History: None Reported - Past Family History Mother Family Medical History: No Reported History Father Family Medical History: No Reported History Son(s) Family Medical History: Cancer Additional Family Medical History / Comment(s): Throat cancer General Exam - General Exam Comments Initial Comments: 89-year-old female. Alert and oriented. No significant distress. Limitations: no limitations General appearance: alert, in no apparent distress Head exam: Present: atraumatic, normocephalic, normal inspection Eye exam: Present: normal appearance, PERRL, EOMI, other (Patient's right eye is watering. No conjunctival injection. No surrounding swelling around the eye. No drainage. Pupils equal and reactive bilaterally. 4 scene eye exam was performed and no abrasions.). Absent: scleral icterus, conjunctival injection, periorbital swelling ENT exam: Present: normal exam, mucous membranes moist, other (Patient has erythematous and boggy right nostril. No bleeding at this time.) Neck exam: Present: normal inspection. Absent: tenderness, meningismus, lymphadenopathy Respiratory exam: Present: normal lung sounds bilaterally. Absent: respiratory distress, wheezes, rales, rhonchi, stridor Cardiovascular Exam: Present: regular rate, normal rhythm, normal heart sounds. Absent: systolic murmur, diastolic murmur, rubs, gallop, clicks Extremities exam: Present: normal inspection, full ROM, normal capillary refill. Absent: tenderness, pedal edema, joint swelling, calf tenderness Back exam: Present: normal inspection Course Vital Signs 02/08/20 02/08/20 11:14 12:26 Temperature 98.1 F Pulse Rate 94 82 Respiratory 18 18 Rate Blood Pressure 187/61 179/82 O2 Sat by Pulse 98 98 Oximetry Medical Decision Making - Medical Decision Making presents with right eye pain and right nostril pain after nasopharyngeal swab. Patient had sphenopalatine block placed with lidocaine instilled over, swab and placed in the right naris for 5 minutes. Patient tolerated the procedure well and reports diminishing pain. She also proparacaine drops placed in the eye and had fluorescein eye exam performed which is negative for abrasion. Patient reports she is now feeling better and denies any further pain. Discussed that likely the swab irritated the nasal lacrimal duct. I discussed the Patient to follow-up with ophthalmology if symptoms continue to persist but her symptoms are improving after the irritation is diminishing at this time. Discussed Motrin and Tylenol and nasal saline spray and artificial tears well. Disposition Clinical Impression: Acute eye pain Disposition: HOME SELF-CARE Condition: Stable Instructions (If sedation given, give patient instructions): Eye Pain (ED) Additional Instructions: Advised to use Visine or artificial tears. Patient to take Motrin Tylenol for further pain. Recommended follow-up with ophthalmology. Return to the ED if any alarming signs or symptoms occur. Is patient prescribed a controlled substance at d/c from ED?: No Referrals: Marilyn Nash MD [Primary Care Provider] - 1-2 days Time of Disposition: 12:07
[2020-02-08 12:26] VITALS: BP 179/82; PULSE 82
== END 2020-02-08 12:31 | disposition home or self-care (01) ==
LOC: EC 11:07
DX: H57.11 Ocular pain, right eye (principal); J34.89 Other specified disorders of nose and nasal sinuses; I25.119 Atherosclerotic heart disease of native coronary artery with unspecified angina pectoris; E11.9 Type 2 diabetes mellitus without complications; E78.5 Hyperlipidemia, unspecified; I10 Essential (primary) hypertension; I25.2 Old myocardial infarction; M10.9 Gout, unspecified; Z79.84 Long term (current) use of oral hypoglycemic drugs; Z79.01 Long term (current) use of anticoagulants; Z79.899 Other long term (current) drug therapy; Z87.891 Personal history of nicotine dependence; Z88.8 Allergy status to other drugs, medicaments and biological substances; Z95.5 Presence of coronary angioplasty implant and graft
CPT/HCPCS: 99283; J2001

== ENCOUNTER → 2020-02-21 | Outpatient (CLI) | payer MEDICARE, BC ==
--- NOTE | 2020-02-21 12:44 | CT ---
EXAMINATION TYPE: CT abdomen wo con DATE OF EXAM: 02/21/2020 COMPARISON: 05/22/2015 HISTORY: left upper quadrant pain CT DLP: 432 mGycm Automated exposure control for dose reduction was used. TECHNIQUE: Helical acquisition of images was performed from the lung bases through the top of iliac crest to include entire abdomen. CONTRAST: Performed without Oral Contrast and without IV contrast, limiting evaluation of both the hollow and s olid viscera. FINDINGS: LUNG BASES: Small triangular area of scarring periphery of the right middle lobe. LIVER/GB: Unremarkable unenhanced morphology of the liver. Gallbladder is surgically absent. No evide nce of hepatic steatosis. PANCREAS: No significant abnormality is seen. SPLEEN: No splenomegaly. Small splenule adjacent to the [place] spleen. ADRENALS: No nodularity or thickening. KIDNEYS: 1.8 cm fluid attenuating left renal cyst. Nonobstructing 3 mm left upper pole renal calculus . BOWEL: No dilated large or small bowel. Stomach is incompletely distended and suboptimal evaluated o n CT, further limited without oral contrast. LYMPH NODES: No greater than 1 cm short axis lymph node in the abdomen. OSSEOUS STRUCTURES: Diffuse osseous demineralization noted. Mild multilevel degenerative change of t he spine. FREE AIR: No free air is visualized. OTHER: Extensive atherosclerosis is seen of the abdominal aorta and its branches. Very small fat fill ed periumbilical hernia. IMPRESSION: 1. EXTENSIVE ATHEROSCLEROSIS OF THE ABDOMINAL AORTA AND ITS BRANCHES. 2. SOLITARY NONOBSTRUCTING LEFT RENAL CALCULUS MEASURING 3 MM. 3. BENIGN-APPEARING LEFT RENAL CYST.
== END | disposition home or self-care (01) ==
LOC: RADCTMAIN 11:40
PROVIDERS: ATTEND Physical Medicine & Rehabilitation
DX: I70.0 Atherosclerosis of aorta (principal); N20.0 Calculus of kidney; N28.1 Cyst of kidney, acquired; E11.9 Type 2 diabetes mellitus without complications; Z79.01 Long term (current) use of anticoagulants
CPT/HCPCS: 74150

== ENCOUNTER 2020-03-02 13:24 | Inpatient (IN) | payer MEDICARE, BC ==
[2020-03-02 13:28] LABS: Glucose,Whole Blood 211 mg/dL (75-99)
[2020-03-02] MEDS ORDERED: SODIUM CHLORIDE 0.9% 500 ML 500 ML IV STA (13:39)
[2020-03-02] MEDS ORDERED: MECLIZINE 25 MG TAB PO STA (13:40)
[2020-03-02] MEDS ORDERED: DIAZEPAM 5 MG/ML 2 ML INJ IVP STA (13:40)
--- NOTE | 2020-03-02 13:43 | ED ---
General Adult HPI - General Chief complaint: Weakness Stated complaint: Weakness Time Seen by Provider: 03/02/20 13:25 Source: patient, EMS, RN notes reviewed, old records reviewed Mode of arrival: EMS Limitations: no limitations - History of Present Illness Initial comments: This is an 89-year-old female with past history significant for bypass surgery as well as having a history of hip pain and vertigo. Patient states today her vertigo so bad she could barely make it to the bathroom even with her walker. Patient states she got scared so she decided come emergency department. Patient denies any headache patient denies any numbness weakness. Patient denies any chest pain difficulty breathing or shortness of breath. Patient denies any abdominal pain patient denies nausea vomiting diarrhea. Patient denies any fever chills or cough. Patient denies any history of trauma. Patient did not fall today. - Related Data Home Medications Medication Instructions Recorded Confirmed Cholecalciferol [Vitamin D3 (25 2,000 unit PO DAILY 09/24/15 03/02/20 Mcg = 1000 Iu)] Linagliptin [Tradjenta] 5 mg PO DAILY 06/18/18 03/02/20 Rivaroxaban [Xarelto] 15 mg PO DAILY 06/18/18 03/02/20 Simvastatin [Zocor] 20 mg PO DAILY 06/18/18 03/02/20 amLODIPine [Norvasc] 5 mg PO DAILY 06/18/18 03/02/20 Hydrocodone/Acetaminophen [Institute 1 tab PO TID 03/02/20 03/02/20 5-325] Insulin Detemir [Levemir Flextouch] 14 units SQ HS 03/02/20 03/02/20 Insulin Lispro [humaLOG Kwikpen] See Protocol SQ TID 03/02/20 03/02/20 Lubiprostone [Amitiza] 24 mcg PO BID 03/02/20 03/02/20 Pantoprazole [Protonix] 40 mg PO DAILY 03/02/20 03/02/20 Previous Rx's Medication Instructions Recorded Lisinopril [Zestril] 10 mg PO HS #30 tab 09/12/18 Allergies Allergy/AdvReac Type Severity Reaction Status Date / Time zolpidem [From Ambien] AdvReac Hallucinati Verified 03/02/20 15:04 ons Review of Systems ROS Statement: Those systems with pertinent positive or pertinent negative responses have been documented in the HPI. ROS Other: All systems not noted in ROS Statement are negative. Past Medical History Past Medical History: Coronary Artery Disease (CAD), Chest Pain / Angina, Diabetes Mellitus, Hyperlipidemia, Hypertension, Myocardial Infarction ([place]), Syncope Additional Past Medical History / Comment(s): NIDDM type II, vertigo/weakness past 5 years and pt states she has had tests but no one knows why, weakness, gait disturbance, falls, bilateral cataracts, dehydration Last Myocardial Infarction Date:: 1995 History of Any Multi-Drug Resistant Organisms: None Reported Past Surgical History: Adenoidectomy, Coronary Bypass/CABG, Heart Catheterization, Orthopedic Surgery, Tonsillectomy Additional Past Surgical History / Comment(s): 3 vessel CABG 1995 in [place], carotid endartectomy 2015, ORIF L ankle d/t fracture. Past Anesthesia/Blood Transfusion Reactions: No Reported Reaction Past Psychological History: No Psychological Hx Reported Smoking Status: Former smoker Past Alcohol Use History: None Reported Past Drug Use History: None Reported - Past Family History Mother Family Medical History: No Reported History Father Family Medical History: No Reported History Son(s) Family Medical History: Cancer Additional Family Medical History / Comment(s): Throat cancer General Exam - General Exam Comments Initial Comments: GENERAL: Patient is well-developed and well-nourished. Patient is nontoxic and well- hydrated and is in mild distress. ENT: Neck is soft and supple. No significant lymphadenopathy is noted. Oropharynx is clear. Moist mucous membranes. Neck has full range of motion without eliciting any pain. EYES: The sclera were anicteric and conjunctiva were pink and moist. Extraocular movements were intact and pupils were equal round and reactive to light. Eyelids were unremarkable. PULMONARY: Unlabored respirations. Good breath sounds bilaterally. No audible rales rhonchi or wheezing was noted. CARDIOVASCULAR: There is a regular rate and rhythm without any murmurs gallops or rubs. ABDOMEN: Soft and nontender with normal bowel sounds. SKIN: Skin is clear with no lesions or rashes and otherwise unremarkable. NEUROLOGIC: Patient is alert and oriented x3. Cranial nerves II through XII are grossly intact. Motor and sensory are also intact. Normal speech, volume and content. Symmetrical smile. Cerebellar testing finger to nose exam grossly intact. MUSCULOSKELETAL: Normal extremities with adequate strength and full range of motion. No lower extremity swelling or edema. No calf tenderness. LYMPHATICS: No significant lymphadenopathy is noted PSYCHIATRIC: Normal psychiatric evaluation. Limitations: no limitations Course Vital Signs 03/02/20 03/02/20 03/02/20 13:25 13:31 13:38 Temperature 99.1 F Pulse Rate 85 Pulse Rate [ 83 Bilateral Radial] Respiratory 18 Rate Blood Pressure 188/56 176/57 O2 Sat by Pulse 97 Oximetry 03/02/20 14:48 Temperature Pulse Rate 71 Pulse Rate [ Bilateral Radial] Respiratory 16 Rate Blood Pressure 155/45 O2 Sat by Pulse 97 Oximetry Medical Decision Making - Medical Decision Making EKG shows normal sinus rhythm at 80 bpm MS interval 280 QRSs 100 QT interval 366 QTC is 422. Patient's EKG shows no ST segment elevation or depression. Spoke with Dr. Nash he agreed to admit the patient admitted the patient wrote admitting orders. Antivert did not seem to help the patient. Patient was hyperkalemic psychiatric the patient calcium chloride insulin and D50 - Lab Data Result diagrams: 03/02/20 13:30 03/02/20 13:30 Lab Results 03/02/20 03/02/20 03/02/20 Range/Units 13:27 13:30 13:30 WBC 11.9 H (3.8-10.6) k/uL RBC 3.77 L (3.80-5.40) m/uL Hgb 8.0 L (11.4-16.0) gm/dL Hct 27.8 L (34.0-46.0) % MCV 73.8 L (80.0-100.0) fL MCH 21.2 L (25.0-35.0) pg MCHC 28.7 L (31.0-37.0) g/dL RDW 18.0 H (11.5-15.5) % Plt Count 312 (150-450) k/uL Neutrophils % 88 % Lymphocytes % 5 % Monocytes % 6 % Eosinophils % 0 % Basophils % 0 % Neutrophils # 10.4 H (1.3-7.7) k/uL Lymphocytes # 0.6 L (1.0-4.8) k/uL Monocytes # 0.7 (0-1.0) k/uL Eosinophils # 0.0 (0-0.7) k/uL Basophils # 0.0 (0-0.2) k/uL Hypochromasia Marked Poikilocytosis Slight Anisocytosis Slight Microcytosis Moderate PT 10.1 (9.0-12.0) sec INR 1.0 (<1.2) APTT 22.4 (22.0-30.0) sec Sodium (137-145) mmol/L Potassium (3.5-5.1) mmol/L Chloride (98-107) mmol/L Carbon Dioxide (22-30) mmol/L Anion Gap mmol/L BUN (7-17) mg/dL Creatinine (0.52-1.04) mg/dL Est GFR (CKD-EPI)AfAm (>60 ml/min/1.73 sqM) Est GFR (CKD-EPI)NonAf (>60 ml/min/1.73 sqM) Glucose (74-99) mg/dL POC Glucose (mg/dL) 211 H (75-99) mg/dL POC Glu [place] Maker ID [place], Monica Plasma Lactic Acid Jose (0.7-2.0) mmol/L Calcium (8.4-10.2) mg/dL Magnesium (1.6-2.3) mg/dL Total Bilirubin (0.2-1.3) mg/dL AST (14-36) U/L ALT (4-34) U/L Alkaline Phosphatase (38-126) U/L Troponin I (0.000-0.034) ng/mL Total Protein (6.3-8.2) g/dL Albumin (3.5-5.0) g/dL Urine Color Urine Appearance (Clear) Urine pH (5.0-8.0) Ur Specific [place] (1.001-1.035) Urine Protein (Negative) Urine Glucose (UA) (Negative) Urine Ketones (Negative) Urine Blood (Negative) Urine Nitrite (Negative) Urine Bilirubin (Negative) Urine Urobilinogen (<2.0) mg/dL Ur Leukocyte Esterase (Negative) Urine RBC (0-5) /hpf Urine WBC (0-5) /hpf Ur Squamous Epith Cells (0-4) /hpf Urine Bacteria (None) /hpf Hyaline Casts (0-2) /lpf Granular Casts (0) /lpf Urine Mucus (None) /hpf 06/08/1103/02/20 03/02/20 Range/Units 13:30 13:30 13:30 WBC (3.8-10.6) k/uL RBC (3.80-5.40) m/uL Hgb (11.4-16.0) gm/dL Hct (34.0-46.0) % MCV (80.0-100.0) fL MCH (25.0-35.0) pg MCHC (31.0-37.0) g/dL RDW (11.5-15.5) % Plt Count (150-450) k/uL Neutrophils % % Lymphocytes % % Monocytes % % Eosinophils % % Basophils % % Neutrophils # (1.3-7.7) k/uL Lymphocytes # (1.0-4.8) k/uL Monocytes # (0-1.0) k/uL Eosinophils # (0-0.7) k/uL Basophils # (0-0.2) k/uL Hypochromasia Poikilocytosis Anisocytosis Microcytosis PT (9.0-12.0) sec INR (<1.2) APTT (22.0-30.0) sec Sodium 138 (137-145) mmol/L Potassium 6.0 H (3.5-5.1) mmol/L Chloride 110 H (98-107) mmol/L Carbon Dioxide 20 L (22-30) mmol/L Anion Gap 8 mmol/L BUN 46 H (7-17) mg/dL Creatinine 1.51 H (0.52-1.04) mg/dL Est GFR (CKD-EPI)AfAm 35 (>60 ml/min/1.73 sqM) Est GFR (CKD-EPI)NonAf 31 (>60 ml/min/1.73 sqM) Glucose 202 H (74-99) mg/dL POC Glucose (mg/dL) (75-99) mg/dL POC Glu [place] [employer] Maker ID Plasma Lactic Acid Jose 0.9 (0.7-2.0) mmol/L Calcium 9.5 (8.4-10.2) mg/dL Magnesium 2.1 (1.6-2.3) mg/dL Total Bilirubin 0.4 (0.2-1.3) mg/dL AST 23 (14-36) U/L ALT 17 (4-34) U/L Alkaline Phosphatase 36 L (38-126) U/L Troponin I <0.012 (0.000-0.034) ng/mL Total Protein 6.5 (6.3-8.2) g/dL Albumin 3.7 (3.5-5.0) g/dL Urine Color Urine Appearance (Clear) Urine pH (5.0-8.0) Ur Specific [place] (1.001-1.035) Urine Protein (Negative) Urine Glucose (UA) (Negative) Urine Ketones (Negative) Urine Blood (Negative) Urine Nitrite (Negative) Urine Bilirubin (Negative) Urine Urobilinogen (<2.0) mg/dL Ur Leukocyte Esterase (Negative) Urine RBC (0-5) /hpf Urine WBC (0-5) /hpf Ur Squamous Epith Cells (0-4) /hpf Urine Bacteria (None) /hpf Hyaline Casts (0-2) /lpf Granular Casts (0) /lpf Urine Mucus (None) /hpf 03/02/20 Range/Units 15:18 WBC (3.8-10.6) k/uL RBC (3.80-5.40) m/uL Hgb (11.4-16.0) gm/dL Hct (34.0-46.0) % MCV (80.0-100.0) fL MCH (25.0-35.0) pg MCHC (31.0-37.0) g/dL RDW (11.5-15.5) % Plt Count (150-450) k/uL Neutrophils % % Lymphocytes % % Monocytes % % Eosinophils % % Basophils % % Neutrophils # (1.3-7.7) k/uL Lymphocytes # (1.0-4.8) k/uL Monocytes # (0-1.0) k/uL Eosinophils # (0-0.7) k/uL Basophils # (0-0.2) k/uL Hypochromasia Poikilocytosis Anisocytosis Microcytosis PT (9.0-12.0) sec INR (<1.2) APTT (22.0-30.0) sec Sodium (137-145) mmol/L Potassium (3.5-5.1) mmol/L Chloride (98-107) mmol/L Carbon Dioxide (22-30) mmol/L Anion Gap mmol/L BUN (7-17) mg/dL Creatinine (0.52-1.04) mg/dL Est GFR (CKD-EPI)AfAm (>60 ml/min/1.73 sqM) Est GFR (CKD-EPI)NonAf (>60 ml/min/1.73 sqM) Glucose (74-99) mg/dL POC Glucose (mg/dL) (75-99) mg/dL POC Glu [place] [employer] [place] Maker ID Plasma Lactic Acid Jose (0.7-2.0) mmol/L Calcium (8.4-10.2) mg/dL Magnesium (1.6-2.3) mg/dL Total Bilirubin (0.2-1.3) mg/dL AST (14-36) U/L ALT (4-34) U/L Alkaline Phosphatase (38-126) U/L Troponin I (0.000-0.034) ng/mL Total Protein (6.3-8.2) g/dL Albumin (3.5-5.0) g/dL Urine Color Light Yellow Urine Appearance Clear (Clear) Urine pH 5.0 (5.0-8.0) Ur Specific [place] 1.013 (1.001-1.035) Urine Protein 1+ H (Negative) Urine Glucose (UA) Negative (Negative) Urine Ketones Negative (Negative) Urine Blood Negative (Negative) Urine Nitrite Negative (Negative) Urine Bilirubin Negative (Negative) Urine Urobilinogen <2.0 (<2.0) mg/dL Ur Leukocyte Esterase Negative (Negative) Urine RBC <1 (0-5) /hpf Urine WBC 1 (0-5) /hpf Ur Squamous Epith Cells <1 (0-4) /hpf Urine Bacteria Rare H (None) /hpf Hyaline Casts 4 H (0-2) /lpf Granular Casts 4 (0) /lpf Urine Mucus Rare H (None) /hpf Disposition Clinical Impression: Anemia, Dizziness, Hyperkalemia, Renal insufficiency Disposition: ADMITTED IP TO THIS [facility] Referrals: Marilyn Nash MD [Primary Care Provider] - 1-2 days Time of Disposition: 16:31
[2020-03-02 14:01] LABS: Albumin 3.7 g/dL (3.5-5.0); Calcium 9.5 mg/dL (8.4-10.2); Magnesium 2.1 mg/dL (1.6-2.3); Total Bilirubin 0.4 mg/dL (0.2-1.3); Total Protein 6.5 g/dL (6.3-8.2)
[2020-03-02 14:13] LABS: Partial Thromboplastin Time 22.4 sec (22.0-30.0); Prothrombin Time 10.1 sec (9.0-12.0)
[2020-03-02 14:14] LABS: Anisocytosis Slight; Basophils % (A) 0 %; Eosinophils % (A) 0 %; HCT 27.8 % (34.0-46.0); Hypochromasia Marked; Lymphocytes # (A) 0.6 k/uL (1.0-4.8); Lymphocytes % (A) 5 %; MCH 21.2 pg (25.0-35.0); MCHC 28.7 g/dL (31.0-37.0); MCV 73.8 fL (80.0-100.0); Mean Platelet Volume 7.8; Microcytosis Moderate; Monocytes # (A) 0.7 k/uL (0-1.0); Monocytes % (A) 6 %; Neutrophils # (A) 10.4 k/uL (1.3-7.7); Neutrophils % (A) 88 %; Platelet Count 312 k/uL (150-450); Poikilocytosis Slight; RBC 3.77 m/uL (3.80-5.40); WBC 11.9 k/uL (3.8-10.6)
--- NOTE | 2020-03-02 14:43 | XR ---
EXAMINATION TYPE: XR chest 2V DATE OF EXAM: 03/02/2020 COMPARISON: 09/11/2018 TECHNIQUE: PA and lateral views submitted. HISTORY: Weakness FINDINGS: The lungs are clear and there is no pneumothorax, pleural effusion, or focal pneumonia. Heart enlar ged and is postoperative change with atherosclerotic change aorta. Biapical pleural thickening. No ov ert failure. Hyperinflation suggests COPD. Degenerative change of the spine. Arthropathy of the shoul ders. Surgical clips in the abdomen noted. IMPRESSION: 1. Cardiomegaly correlate for COPD..
[2020-03-02 15:41] LABS: Appearance,Urine Clear (Clear); Bacteria,Urine Rare /hpf; Bilirubin,Urine Negative (Negative); Blood,Urine Negative (Negative); Color,Urine Light Yellow; Glucose,Urine (UA) Negative (Negative); Granular Casts,Urine 4 /lpf (0); Hyaline Casts,Urine 4 /lpf (0-2); Ketones,Urine Negative (Negative); Leukocyte Esterase,Urine Negative (Negative); Mucus,Urine Rare /hpf; Nitrite,Urine Negative (Negative); Protein,Urine 1+ (Negative); RBC,Urine <1 /hpf (0-5); Specific Gravity,Urine 1.013 (1.001-1.035); Squamous Epithelial Cell,Urine <1 /hpf (0-4); Urobilinogen,Urine <2.0 mg/dL (<2.0); WBC,Urine 1 /hpf (0-5)
[2020-03-02] MEDS ORDERED: SODIUM CHLORIDE 0.9% 1,000 ML IV ONE (16:25)
[2020-03-02] MEDS ORDERED: MECLIZINE 12.5 MG TAB PO PRN (16:30)
[2020-03-02] MEDS ORDERED: INSULIN REGULAR 100 UNIT/ML VIAL IV ONE (16:31)
[2020-03-02] MEDS ORDERED: DEXTROSE 50% SYRINGE 50 ML IVP STA (16:31)
[2020-03-02] MEDS ORDERED: CALCIUM CHLORIDE 100 MG/ML 10 ML SYRINGE IVP STA (16:31)
[2020-03-02 20:32] LABS: Glucose,Whole Blood 160 mg/dL (75-99)
[2020-03-02] MEDS: LISINOPRIL 10 MG TAB PO SCH (20:37)
[2020-03-02] MEDS: INSULIN ASPART (NovoLOG) 100 UNIT/ML VIAL SQ SCH (20:38)
[2020-03-02] MEDS: INSULIN DETEMIR (LEVEMIR) 100 UNIT/ML SYR SQ SCH (20:39)
[2020-03-02] MEDS: Lubiprostone [Amitiza] PO SCH (20:40)
[2020-03-02] MEDS: HYDROcodone/APAP 5-325MG 1 EACH TAB PO SCH (21:28)
[2020-03-03] MEDS: ATORVASTATIN 10 MG TAB PO SCH (07:15)
[2020-03-03] MEDS: PANTOPRAZOLE 40 MG TABLET PO SCH (07:15)
[2020-03-03] MEDS: CHOLECALCIFEROL 1,000 UNIT TAB PO SCH (07:16)
[2020-03-03] MEDS: HYDROcodone/APAP 5-325MG 1 EACH TAB PO SCH ×3 (07:16→20:58)
[2020-03-03] MEDS: amLODIPine 5 MG TAB PO SCH (07:16)
[2020-03-03] MEDS: Lubiprostone [Amitiza] PO SCH (07:17)
[2020-03-03] MEDS: LINAGLIPTIN 5 MG TABLET PO SCH (07:17)
[2020-03-03] MEDS: INSULIN ASPART (NovoLOG) 100 UNIT/ML VIAL SQ SCH ×4 (07:22→20:18)
[2020-03-03 07:24] LABS: Glucose,Whole Blood 115 mg/dL (75-99)
[2020-03-03] MEDS ORDERED: RIVAROXABAN 15 MG TAB PO SCH (09:00)
[2020-03-03 09:28] LABS: Anisocytosis Slight; Basophils % (A) 0 %; Eosinophils # (A) 0.2 k/uL (0-0.7); Eosinophils % (A) 2 %; HCT 27.9 % (34.0-46.0); HGB 7.8 gm/dL (11.4-16.0); Hypochromasia Marked; Lymphocytes # (A) 0.9 k/uL (1.0-4.8); Lymphocytes % (A) 9 %; MCH 20.6 pg (25.0-35.0); MCV 73.5 fL (80.0-100.0); Mean Platelet Volume 7.7; Microcytosis Moderate; Monocytes # (A) 0.6 k/uL (0-1.0); Monocytes % (A) 6 %; Neutrophils # (A) 8.3 k/uL (1.3-7.7); Neutrophils % (A) 81 %; Platelet Count 271 k/uL (150-450); Poikilocytosis Slight; RDW 18.4 % (11.5-15.5); WBC 10.2 k/uL (3.8-10.6)
[2020-03-03 09:43] LABS: Albumin 3.4 g/dL (3.5-5.0); Calcium 8.9 mg/dL (8.4-10.2); Potassium 5.1 mmol/L (3.5-5.1); Total Bilirubin 0.5 mg/dL (0.2-1.3); Total Protein 6.2 g/dL (6.3-8.2)
[2020-03-03 11:20] LABS: Glucose,Whole Blood 107 mg/dL (75-99)
--- NOTE | 2020-03-03 13:57 | P.HPIM ---
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 Patient presented yesterday to [facility] emergency center due to concerns for worsening vertigo that is aware she's ever had. She did not have any falls at home. She utilizes a walker for ambulation. She denies having any headache, lateral weakness, numbness or tingling, no chest pain or shortness of breath. She's had no nausea, vomiting or diarrhea. She is complaining of soreness in her mouth including lesions on her lips. Patient was found to be afebrile, heart rate 85, blood pressure 180/56 and pulse ox 97% on room air. EKG was in normal sinus rhythm with no acute ST changes. Chest x-ray revealed cardiomegaly correlate for COPD. Patient was found to have a potassium of 6.0 and she is status post calcium chloride, insulin and D50. Hemoglobin of 8, WBC 11.9. Sodium 138, Chloride 110, CO2 20, BUN 46 and creatin ine 1.51, blood sugar 202. Lactic acid 0.9, troponin negative. Urinalysis clear with nitrate and leukoesterase negative. Xarelto has been placed on hold. Patient admitted to the [facility] floor and consult requested with GI.. Review of Systems Constitutional: Reports fatigue, Reports weakness, Denies anorexia, Denies chills, Denies fever, Denies lethargy, Denies poor appetite Eyes: denies blurred vision, denies pain Ears, nose, mouth and throat: Reports mouth pain, Reports vertigo, Denies dysphagia, Denies headache, Denies sore throat Cardiovascular: Denies chest pain, Denies decreased exercise tolerance, Denies dyspnea on exertion, Denies edema, Denies leg edema, Denies lightheadedness, Denies shortness of breath, Denies syncope Respiratory: Denies cough, Denies cough with sputum, Denies dyspnea, Denies excessive sputum, Denies hemoptysis, Denies home oxygen, Denies respiratory infections Gastrointestinal: Denies abdominal pain, Denies BRBPR, Denies diarrhea, Denies hematemesis, Denies hematochezia, Denies melena, Denies nausea, Denies vomiting Genitourinary: Denies dysuria, Denies hematuria, Denies urgency, Denies urinary frequency Menstruation: Reports postmenopausal Musculoskeletal: Reports gait dysfunction, Reports muscle weakness, Denies frequent falls, Denies myalgias Integumentary: Denies pruritus, Denies rash, Denies wounds Neurological: Reports vertigo, Denies change in mentation, Denies change in speech, Denies seizures, Denies syncope Psychiatric: Denies anxiety, Denies depression Endocrine: Denies fatigue, Denies weight change Past Medical History Past Medical History: Coronary Artery Disease (CAD), Chest Pain / Angina, Diabetes Mellitus, Hyperlipidemia, Hypertension, Myocardial Infarction ([place]), Syncope Additional Past Medical History / Comment(s): NIDDM type II, vertigo/weakness past 5 years and pt states she has had tests but no one knows why, weakness, gait disturbance, falls, bilateral cataracts, dehydration Last Myocardial Infarction Date:: 1995 History of Any Multi-Drug Resistant Organisms: None Reported Past Surgical History: Adenoidectomy, Coronary Bypass/CABG, Heart Catheterization, Orthopedic Surgery, Tonsillectomy Additional Past Surgical History / Comment(s): 3 vessel CABG 1996 in [place], carotid endartectomy 2015, ORIF L ankle d/t fracture. Past Anesthesia/Blood Transfusion Reactions: No Reported Reaction Past Psychological History: No Psychological Hx Reported Additional Psychological History / Comment(s): Pt resides alone in an apartment with her daughter living down the hallway. She has a walker. She no longer drives, her son takes her to appointments. Smoking Status: Former smoker Past Alcohol Use History: None Reported Additional Past Alcohol Use History / Comment(s): Patient smoked one pack per day for 60 years or more and quit in 2016. She denies any alcohol use, marijuana or street drug use. Past Drug Use History: None Reported Additional Drug Use History / Comment(s): Patient smoked for 60+ years. Quit in 2015 - Past Family History Mother Family Medical History: No Reported History Additional Family Medical History / Comment(s): Mother at age 82 from old age. Father Family Medical History: No Reported History Additional Family Medical History / Comment(s): Father from old age and patient does not recall his age or any medical problems. Son(s) Family Medical History: Cancer Additional Family Medical History / Comment(s): Patient has one son with history of throat cancer in remission. Patient has one daughter with no major medical problems. Patient does not have any brothers or sisters. Medications and Allergies Home Medications Medication Instructions Recorded Confirmed Type Cholecalciferol [Vitamin D3 (25 2,000 unit PO DAILY 09/24/15 03/02/20 History Mcg = 1000 Iu)] Linagliptin [Tradjenta] 5 mg PO DAILY 06/18/18 03/02/20 History Rivaroxaban [Xarelto] 15 mg PO DAILY 06/18/18 03/02/20 History Simvastatin [Zocor] 20 mg PO DAILY 06/18/18 03/02/20 History amLODIPine [Norvasc] 5 mg PO DAILY 06/18/18 03/02/20 History Lisinopril [Zestril] 10 mg PO HS #30 tab 09/12/18 03/02/20 Rx Hydrocodone/Acetaminophen [[place] 1 tab PO TID 03/02/20 03/02/20 History 5-325] Insulin Detemir [Levemir Flextouch] 14 units SQ HS 03/02/20 03/02/20 History Insulin Lispro [humaLOG Kwikpen] See Protocol SQ TID 03/02/20 03/02/20 History Lubiprostone [Amitiza] 24 mcg PO BID 03/02/20 03/02/20 History Pantoprazole [Protonix] 40 mg PO DAILY 03/02/20 03/02/20 History Allergies Allergy/AdvReac Type Severity Reaction Status Date / Time zolpidem [From Ambien] AdvReac Hallucinati Verified 03/02/20 15:04 ons Physical Exam Vitals: Vital Signs Temp Pulse Pulse Resp BP BP Pulse Ox 03/03/20 04:00 73 13 03/03/20 00:51 98.3 F 73 13 158/50 97 03/03/20 00:00 73 13 03/02/20 20:00 80 14 03/02/20 19:38 98.1 F 80 14 170/70 96 03/02/20 18:25 98.2 F 89 14 183/61 98 03/02/20 18:11 86 16 146/79 99 03/02/20 16:47 76 16 158/79 99 03/02/20 14:48 71 16 155/45 97 03/02/20 13:38 83 03/02/20 13:31 176/57 03/02/20 13:25 99.1 F 85 18 188/56 97 Intake and Output 03/02/20 03/03/20 03/03/20 22:59 06:59 14:59 Other: Voiding Method Toilet Toilet Toilet Diaper Diaper Diaper # Voids 1 1 HEENT: Head is atraumatic, normocephalic, pupils were equal round reactive to light and accommodations, extraocular muscle movement were intact. Oral mucous membranes are dry patient sounded to the upper and lower lip. Neck: Supple, no JVP, decreased carotid upstroke bilaterally. Chest: Clear to auscultation bilaterally, there is no crackles, no wheezes, no chest wall tenderness, no intercostal retractions. Heart: First heart sound is normal, second heart sound is normal, regular, no murmur. Abdomen: Soft, nontender, nondistended, positive bowel sounds. Extremities: No pedal edema bilaterally, dorsalis pedis palpable bilaterally. No calf tenderness. Neurologic examination: Patient is awake and alert and oriented 3. No focal neuro deficits. Cranial nerves III-12 appear grossly intact. Results CBC & Chem 7: 03/03/20 08:55 03/03/20 08:55 Labs: Abnormal Lab Results - Last 24 Hours (Table) 03/02/20 03/02/20 03/02/20 Range/Units 13:27 13:30 13:30 WBC 11.9 H (3.8-10.6) k/uL RBC 3.77 L (3.80-5.40) m/uL Hgb 8.0 L (11.4-16.0) gm/dL Hct 27.8 L (34.0-46.0) % MCV 73.8 L (80.0-100.0) fL MCH 21.2 L (25.0-35.0) pg MCHC 28.7 L (31.0-37.0) g/dL RDW 18.0 H (11.5-15.5) % Neutrophils # 10.4 H (1.3-7.7) k/uL Lymphocytes # 0.6 L (1.0-4.8) k/uL Potassium 6.0 H (3.5-5.1) mmol/L Chloride 110 H (98-107) mmol/L Carbon Dioxide 20 L (22-30) mmol/L BUN 46 H (7-17) mg/dL Creatinine 1.51 H (0.52-1.04) mg/dL Glucose 202 H (74-99) mg/dL POC Glucose (mg/dL) 211 H (75-99) mg/dL Alkaline Phosphatase 36 L (38-126) U/L Urine Protein (Negative) Urine Bacteria (None) /hpf Hyaline Casts (0-2) /lpf Urine Mucus (None) /hpf 03/02/20 03/02/20 03/03/20 Range/Units 15:18 20:29 07:21 WBC (3.8-10.6) k/uL RBC (3.80-5.40) m/uL Hgb (11.4-16.0) gm/dL Hct (34.0-46.0) % MCV (80.0-100.0) fL MCH (25.0-35.0) pg MCHC (31.0-37.0) g/dL RDW (11.5-15.5) % Neutrophils # (1.3-7.7) k/uL Lymphocytes # (1.0-4.8) k/uL Potassium (3.5-5.1) mmol/L Chloride (98-107) mmol/L Carbon Dioxide (22-30) mmol/L BUN (7-17) mg/dL Creatinine (0.52-1.04) mg/dL Glucose (74-99) mg/dL POC Glucose (mg/dL) 160 H 115 H (75-99) mg/dL Alkaline Phosphatase (38-126) U/L Urine Protein 1+ H (Negative) Urine Bacteria Rare H (None) /hpf Hyaline Casts 4 H (0-2) /lpf Urine Mucus Rare H (None) /hpf Thrombosis Risk Factor Assmnt - DVT/VTE Prophylaxis DVT/VTE Prophylaxis: Mechanical Prophylaxis ordered - Choose All That Apply Each Risk Factor Represents 3 Points: Age 75 years or older Thrombosis Risk Factor Assessment Total Risk Factor Score: 3 Thrombosis Risk Factor Assessment Level: Moderate Risk Assessment and Plan Plan: 1. Dizziness secondary to acute kidney injury and dehydration, acute anemia, possible vertigo. Check orthostatic vital signs. 2. Acute kidney injury with hyperkalemia. Avoid nephrotoxic agents. Okay to continue lisinopril. Recheck BMP in the morning. 3. Acute anemia with possible blood loss secondary to acute GI bleed. Patient has history of AVM. Xarelto is on hold. Consult with GI. Patient has declined colonoscopy. Patient is currently on a regular consistent carb diet. Monitor hemoglobin closely. 4. Paroxysmal atrial fibrillation, chronically on Xarelto. Xarelto is currently on hold due to possible GI bleed. 5. History of coronary artery disease status post three-vessel CABG in 1995. 6. Carotid artery disease status post carotid endarterectomy, stable. 7. Diabetes mellitus type 2, insulin requiring. Continue Levemir 14 units at bedtime and NovoLog scale before meals and at bedtime, Tradjenta 5 mg daily. 8. Hypertension, hypertensive cardiovascular disease. Continue Norvasc 5 mg daily, lisinopril 10 mg at bedtime. 9. Hyperlipidemia. Continue Lipitor 10 mg daily. 10. Chronic vertigo. Continue Antivert 12.5 mg twice daily as needed. 11. Gastroesophageal reflux disease. Continue Protonix 40 mg daily. 12. Chronic idiopathic constipation. Patient has been on Amitiza. 13. COVID-19 infection present. CODE STATUS: No code Patient will be admitted to the hospital for minimum of 2 night stay. Discharge plan: To be determined. PT and OT consults.
[2020-03-03] MEDS: CHLORHEXIDINE GLUCONATE 15 ML CUP MUCOUS MEM SCH ×2 (14:17→20:59)
[2020-03-03 16:38] LABS: Glucose,Whole Blood 152 mg/dL (75-99)
[2020-03-03 20:18] LABS: Glucose,Whole Blood 128 mg/dL (75-99)
[2020-03-03] MEDS: LISINOPRIL 10 MG TAB PO SCH (20:58)
[2020-03-03] MEDS: INSULIN DETEMIR (LEVEMIR) 100 UNIT/ML SYR SQ SCH (20:59)
--- NOTE | 2020-03-03 22:29 | CONS ---
CONSULTATION DATE OF DICTATION: 03/03/2020 REASON FOR CONSULTATION: Dizziness, weakness and anemia. HISTORY OF PRESENT ILLNESS: The patient is an 89-year-old pleasant white female with history of coronary artery disease, atrial fibrillation, on Xarelto, hypertension, hyperlipidemia, admitted to the hospital because of dizziness and weakness. She came into the emergency room and she was noted to have mild anemia, and there was some concern about GI bleed with dark- colored stool yesterday; hence we are consulted in regard to this issue. The patient today is feeling better. She denies any abdominal pain, reports no nausea or vomiting. She had no bowel movement since being in the hospital. She did have an EGD. She was noted to have a hemoglobin of 8 g/dL. She had an EGD and colonoscopy by Dr. 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 PAST MEDICAL HISTORY: Her past medical history is significant for coronary artery disease, atrial fibrillation, on Xarelto, hypertension, hyperlipidemia, coronary artery disease, status post TX in the past, diabetes mellitus. PAST SURGICAL HISTORY: CABG, tonsillectomy, adenoidectomy, right carotid endarterectomy, ORIF, EGD, colonoscopy in June of 2018. HOME MEDICATIONS: Vitamin D3, Tradjenta, Xarelto, Zocor, Norvasc, Zestril, [place], Levemir, Humalog, Amitiza, Protonix. ALLERGIES: AMBIEN. SOCIAL HISTORY: No smoking. No alcohol use. FAMILY HISTORY: Son with history of cancer. REVIEW OF SYSTEMS: CARDIOPULMONARY: No chest pain or shortness of breath. GENITOURINARY: No dysuria or hematuria. MUSCULOSKELETAL: Some chronic back pain and muscle weakness. NEUROLOGY: Unremarkable. PSYCHIATRY: Unremarkable. ENT/VISION: Unremarkable. CONSTITUTIONAL: No recent weight loss. No fever, chills, night sweats. GI: As mentioned above. PHYSICAL EXAMINATION: She appears comfortable. No apparent distress. Vital signs are stable. Pulse rate is 81, temperature 98.3, blood pressure 161/62. HEENT examination unremarkable. Conjunctivae pink. Sclerae anicteric. Oral cavity no lesions. NECK: No JVD or lymph node enlargement. CHEST: Clear to auscultation. HEART: Regular rate and rhythm. ABDOMEN: Soft. Bowel sounds are positive. No organomegaly. EXTREMITIES: No pedal edema. SKIN: No rashes. NEUROLOGIC: Alert and oriented x3. No focal deficits. LABS: WBC 7.9, hemoglobin 8, platelets normal. Repeat hemoglobin today 7.8 g/dL, MCV 73, RDW is 18. PT/INR is within normal limits. BUN is 31, creatinine 1.26. IMPRESSION: 1. Microcytic hypochromic anemia, most likely related to iron deficiency from occult gastrointestinal blood loss. The patient had an EGD and colonoscopy by Dr. Hackett in June of 2018 that showed gastritis and cecal arteriovenous malformation, for which she underwent argon plasma coagulation. She is presently on Xarelto for atrial fibrillation, which is currently on hold. Repeat CBC was 7.8 g/dL. Clinically no evidence of active ongoing bleeding. 2. Dizziness/vertigo. 3. Acute kidney injury. 4. Atrial fibrillation, on Xarelto, currently on hold. 5. History of diabetes mellitus and coronary artery disease. RECOMMENDATIONS: 1. Continue to hold Xarelto. 2. Monitor CBC daily. 3. Discussed with the patient endoscopic workup because of hypochromic microcytic anemia, but she is not interested in proceeding with this during this hospitalization. 4. Continue with Protonix 40 mg daily. 5. Repeat CBC in the morning. Will follow with you. Thank you for this consultation. MMODL / IJN: [id number] /
[2020-03-04 06:39] LABS: Anisocytosis Slight; HCT 25.8 % (34.0-46.0); HGB 7.3 gm/dL (11.4-16.0); Hypochromasia Marked; MCH 21.4 pg (25.0-35.0); MCHC 28.1 g/dL (31.0-37.0); MCV 76.3 fL (80.0-100.0); Mean Platelet Volume 7.2; Microcytosis Slight; Platelet Count 250 k/uL (150-450); Poikilocytosis Slight; RBC 3.39 m/uL (3.80-5.40); RDW 18.2 % (11.5-15.5); WBC 8.1 k/uL (3.8-10.6)
[2020-03-04 06:54] LABS: Glucose,Whole Blood 98 mg/dL (75-99)
[2020-03-04] MEDS: INSULIN ASPART (NovoLOG) 100 UNIT/ML VIAL SQ SCH ×4 (07:06→20:24)
[2020-03-04] MEDS: PANTOPRAZOLE 40 MG TABLET PO SCH (07:16)
[2020-03-04] MEDS: CHOLECALCIFEROL 1,000 UNIT TAB PO SCH (07:16)
[2020-03-04] MEDS: ATORVASTATIN 10 MG TAB PO SCH (07:16)
[2020-03-04] MEDS: HYDROcodone/APAP 5-325MG 1 EACH TAB PO SCH ×3 (07:16→20:24)
[2020-03-04] MEDS: amLODIPine 5 MG TAB PO SCH (07:16)
[2020-03-04] MEDS: LINAGLIPTIN 5 MG TABLET PO SCH (07:16)
[2020-03-04 07:17] LABS: Calcium 8.5 mg/dL (8.4-10.2); Potassium 5.2 mmol/L (3.5-5.1)
--- NOTE | 2020-03-04 09:42 | P.PN ---
Subjective Progress Note Date: 03/04/20 This is an 89-year-old female patient with past medical history of coronary artery disease status post three-vessel CABG in 1995, carotid artery disease status post carotid endarterectomy in 2016, diabetes mellitus type 2, paroxysmal atrial fibrillation chronically on Xarelto, hypertension, hype rlipidemia, chronic vertigo 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 Patient presented yesterday to [facility] emergency center due to concerns for worsening vertigo that is aware she's ever had. She did not have any falls at home. She utilizes a walker for ambulation. She denies having any headache, lateral weakness, numbness or tingling, no chest pain or shortness of breath. She's had no nausea, vomiting or diarrhea. She is complaining of soreness in her mouth including lesions on her lips. Patient was found to be afebrile, heart rate 85, blood pressure 180/56 and pulse ox 97% on room air. EKG was in normal sinus rhythm with no acute ST changes. Chest x-ray revealed cardiomegaly correlate for COPD. Patient was found to have a potassium of 6.0 and she is status post calcium chloride, insulin and D50. Hemoglobin of 8, WBC 11.9. Sodium 138, Chloride 110, CO2 20, BUN 46 and creatinine 1.51, blood sugar 202. Lactic acid 0.9, troponin negative. Urinalysis clear with nitrate and leukoesterase negative. Xarelto has been placed on hold. Patient admitted to the [facility] floor and consult requested with GI.. 03/04: Patient is sitting up in bed in no apparent distress she is complaining of increased burning sensation in her throat as well as pain in her lips, she was seen earlier by gastroenterology was recommended for the patient to go for EGD and colonoscopy as she is anemic with microcytosis, her hemoglobin did drop to 7.3 she will be given iron infusion today and possibly tomorrow, she will need to be scheduled for EGD and colonoscopy for further evaluation of chronic blood loss. Objective - Vital Signs Vital signs: Vital Signs Temp 98.8 F 03/04/20 02:24 Pulse 69 03/04/20 02:24 Resp 19 03/04/20 02:24 BP 164/51 03/04/20 02:24 Pulse Ox 93 L 03/04/20 02:24 Intake & Output 03/03/20 03/04/20 03/04/20 18:59 06:59 18:59 Intake Total 500 Balance 500 Intake: Oral 500 Other: Voiding Method Toilet Toilet Diaper Diaper # Voids 1 2 - Exam HEENT: Head is atraumatic, normocephalic, pupils were equal round reactive to light and accommodations, extraocular muscle movement were intact. Oral mucous membranes are dry patient sounded to the upper and lower lip. Neck: Supple, no JVP, decreased carotid upstroke bilaterally. Chest: Clear to auscultation bilaterally, there is no crackles, no wheezes, no chest wall tenderness, no intercostal retractions. Heart: First heart sound is normal, second heart sound is normal, regular, no murmur. Abdomen: Soft, nontender, nondistended, positive bowel sounds. Extremities: No pedal edema bilaterally, dorsalis pedis palpable bilaterally. No calf tenderness. Neurologic examination: Patient is awake and alert and oriented 3. No focal neuro deficits. Cranial nerves III-12 appear grossly intact. - Labs CBC & Chem 7: 03/04/20 05:54 03/04/20 05:54 Labs: Abnormal Lab Results - Last 24 Hours (Table) 03/03/20 03/03/20 03/03/20 Range/Units 08:55 11:19 16:36 RBC (3.80-5.40) m/uL Hgb (11.4-16.0) gm/dL Hct (34.0-46.0) % MCV (80.0-100.0) fL MCH (25.0-35.0) pg MCHC (31.0-37.0) g/dL RDW (11.5-15.5) % Potassium (3.5-5.1) mmol/L Chloride 114 H (98-107) mmol/L Carbon Dioxide 20 L (22-30) mmol/L BUN 31 H (7-17) mg/dL Creatinine 1.26 H (0.52-1.04) mg/dL Glucose 116 H (74-99) mg/dL POC Glucose (mg/dL) 107 H 152 H (75-99) mg/dL Alkaline Phosphatase 34 L (38-126) U/L Total Protein 6.2 L (6.3-8.2) g/dL Albumin 3.4 L (3.5-5.0) g/dL 03/03/20 03/04/20 03/04/20 Range/Units 20:17 05:54 05:54 RBC 3.39 L (3.80-5.40) m/uL Hgb 7.3 L (11.4-16.0) gm/dL Hct 25.8 L (34.0-46.0) % MCV 76.3 L (80.0-100.0) fL MCH 21.4 L (25.0-35.0) pg MCHC 28.1 L (31.0-37.0) g/dL RDW 18.2 H (11.5-15.5) % Potassium 5.2 H (3.5-5.1) mmol/L Chloride 116 H (98-107) mmol/L Carbon Dioxide 21 L (22-30) mmol/L BUN 23 H (7-17) mg/dL Creatinine 1.12 H (0.52-1.04) mg/dL Glucose (74-99) mg/dL POC Glucose (mg/dL) 128 H (75-99) mg/dL Alkaline Phosphatase (38-126) U/L Total Protein (6.3-8.2) g/dL Albumin (3.5-5.0) g/dL Assessment and Plan Plan: Assessment and Plan Plan: 1. Dizziness secondary to acute kidney injury and dehydration, acute anemia, possible vertigo. Check orthostatic vital signs. 2. Acute kidney injury with hyperkalemia. Avoid nephrotoxic agents. Okay to continue lisinopril. Recheck BMP in the morning. 3. Acute blood loss anemia anemia with possible blood loss secondary to acute GI bleed. Patient has history of AVM. Xarelto is on hold. Consult with GI. I discussed with patient importance of doing EGD and colonoscopy and the same time and she was in agreement to do this will lead GI no. 4. Paroxysmal atrial fibrillation, chronically on Xarelto. Xarelto is currently on hold due to possible GI bleed. 5. History of coronary artery disease status post three-vessel CABG in 1995. 6. Carotid artery disease status post carotid endarterectomy, stable. 7. Diabetes mellitus type 2, insulin requiring. Continue Levemir 14 units at bedtime and NovoLog scale before meals and at bedtime, Tradjenta 5 mg daily. 8. Hypertension, hypertensive cardiovascular disease. Continue Norvasc 5 mg daily, lisinopril 10 mg at bedtime. 9. Hyperlipidemia. Continue Lipitor 10 mg daily. 10. Chronic vertigo. Continue Antivert 12.5 mg twice daily as needed. 11. Gastroesophageal reflux disease. Continue Protonix 40 mg daily. 12. Chronic idiopathic constipation. Hold Amitiza for now. 13. COVID-19 infection not present. 14. No code. 15. Physical therapy evaluation. 16. Plan is to go back home or subacute rehab .
[2020-03-04] MEDS ORDERED: SODIUM FERRIC GLUCONAT-SUCROSE 125 MG in SODIUM CHLORIDE 0.9% 100 ML IVPB ONE (11:00)
[2020-03-04 11:39] LABS: Glucose,Whole Blood 181 mg/dL (75-99)
[2020-03-04] MEDS: CHLORHEXIDINE GLUCONATE 15 ML CUP MUCOUS MEM SCH ×2 (11:50→20:24)
--- NOTE | 2020-03-04 16:43 | PN ---
PROGRESS NOTE DATE OF SERVICE: 03/04/2020 The patient is an 89-year-old pleasant white female admitted to the hospital with weakness, not feeling well and anemia. Denies any GI bleed. She denies new symptoms today. She is slightly dizzy, but overall she is feeling better. PHYSICAL EXAMINATION: Appears comfortable no apparent distress. Vital signs are stable. Blood pressure is 164/51, pulse rate 69, temperature 98. HEENT examination unremarkable. Conjunctivae pink. Sclerae anicteric. Oral cavity, no lesions. NECK: No JVD or lymph node enlargement. CHEST: Clear to auscultation. HEART: Regular rate and rhythm. ABDOMEN: Soft. Bowel sounds are positive. No organomegaly. NEUROLOGIC: Alert and oriented x3. No focal deficits. LABS: From today WBC 8.1, hemoglobin 7.3, platelets normal. Basic metabolic panel is within normal limits. IMPRESSION: 1. Severe symptomatic anemia with a hemoglobin of 7.3 with no active bleeding. The patient was on Xarelto which is currently on hold. Hemoglobin yesterday was 8 g/dL. Denies any rectal bleeding or melena. 2. Atrial fibrillation on Xarelto, currently on hold. 3. History of hypertension and diabetes mellitus. RECOMMENDATIONS: 1. Monitor CBC closely. 2. Hold Xarelto for now. 3. She had an EGD and colonoscopy in June [address] Hackett and was noted to have a cecal arteriovenous malformation that was cauterized. At this time she is not quite interested in proceeding with a colonoscopy, but she stated that if she absolutely needs to have it done, she will consider doing it. Since her hemoglobin is gradually dropping but there is no active bleeding, I will continue to watch her closely and hold Xarelto for now and if needed, we will proceed with an EGD and colonoscopy on Friday. I will discuss this with the patient tomorrow again. Thank you for this consultation. MMODL / IJN: [id number] /
[2020-03-04 16:50] LABS: Glucose,Whole Blood 134 mg/dL (75-99)
[2020-03-04 20:00] LABS: Glucose,Whole Blood 149 mg/dL (75-99)
[2020-03-04] MEDS: LISINOPRIL 10 MG TAB PO SCH (20:24)
[2020-03-04] MEDS: INSULIN DETEMIR (LEVEMIR) 100 UNIT/ML SYR SQ SCH (20:24)
[2020-03-05] MEDS ORDERED: methylPREDNISolone SOD SUCCI 125 MG/2 ML VIAL IM ONE (05:05)
[2020-03-05] MEDS ORDERED: methylPREDNISolone SOD SUCCI 125 MG/2 ML VIAL IV STA (05:11)
[2020-03-05 07:23] LABS: Glucose,Whole Blood 119 mg/dL (75-99)
[2020-03-05] MEDS: INSULIN ASPART (NovoLOG) 100 UNIT/ML VIAL SQ SCH ×4 (07:23→20:23)
[2020-03-05] MEDS: PANTOPRAZOLE 40 MG TABLET PO SCH (08:16)
[2020-03-05] MEDS: ATORVASTATIN 10 MG TAB PO SCH (08:16)
[2020-03-05] MEDS: CHLORHEXIDINE GLUCONATE 15 ML CUP MUCOUS MEM SCH ×2 (08:16→20:23)
[2020-03-05] MEDS: amLODIPine 5 MG TAB PO SCH (08:16)
[2020-03-05] MEDS: CHOLECALCIFEROL 1,000 UNIT TAB PO SCH (08:16)
[2020-03-05] MEDS: HYDROcodone/APAP 5-325MG 1 EACH TAB PO SCH ×3 (08:17→20:23)
[2020-03-05] MEDS: LINAGLIPTIN 5 MG TABLET PO SCH (08:17)
[2020-03-05 08:22] LABS: Albumin 3.1 g/dL (3.5-5.0); Calcium 8.5 mg/dL (8.4-10.2); Potassium 4.9 mmol/L (3.5-5.1); Total Bilirubin 0.4 mg/dL (0.2-1.3); Total Protein 5.7 g/dL (6.3-8.2)
[2020-03-05 08:25] LABS: Anisocytosis Slight; HCT 26.7 % (34.0-46.0); HGB 7.4 gm/dL (11.4-16.0); Hypochromasia Marked; MCH 20.5 pg (25.0-35.0); MCHC 27.8 g/dL (31.0-37.0); MCV 73.6 fL (80.0-100.0); Mean Platelet Volume 7.7; Microcytosis Moderate; Platelet Count 255 k/uL (150-450); Poikilocytosis Slight; RBC 3.62 m/uL (3.80-5.40); RDW 18.7 % (11.5-15.5); WBC 9.3 k/uL (3.8-10.6)
[2020-03-05 11:26] LABS: Glucose,Whole Blood 202 mg/dL (75-99)
--- NOTE | 2020-03-05 12:51 | P.PN ---
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 Patient presented yesterday to [facility] emergency center due to concerns for worsening vertigo that is aware she's ever had. She did not have any falls at home. She utilizes a walker for ambulation. She denies having any headache, lateral weakness, numbness or tingling, no chest pain or shortness of breath. She's had no nausea, vomiting or diarrhea. She is complaining of soreness in her mouth including lesions on her lips. Patient was found to be afebrile, heart rate 85, blood pressure 180/56 and pulse ox 97% on room air. EKG was in normal sinus rhythm with no acute ST changes. Chest x-ray revealed cardiomegaly correlate for COPD. Patient was found to have a potassium of 6.0 and she is status post calcium chloride, insulin and D50. Hemoglobin of 8, WBC 11.9. Sodium 138, Chloride 110, CO2 20, BUN 46 and creatinine 1.51, blood sugar 202. Lactic acid 0.9, troponin negative. Urinalysis clear with nitrate and leukoesterase negative. Xarelto has been placed on hold. Patient admitted to the [facility] floor and consult requested with GI.. 03/04: Patient is sitting up in bed in no apparent distress she is complaining of increased burning sensation in her throat as well as pain in her lips, she was seen earlier by gastroenterology was recommended for the patient to go for EGD and colonoscopy as she is anemic with microcytosis, her hemoglobin did drop to 7.3 she will be given iron infusion today and possibly tomorrow, she will need to be scheduled for EGD and colonoscopy for further evaluation of chronic blood loss. 03/05: Patient is sitting up in bed that she is feeling a lot better than earlier in the morning when she developed to have a significant swelling of her lips and her tongue thought to be due to anaphylactic reaction with a questionable reaction to the IV iron and dextran, patient did receive Solu-Medrol 125 mg IV push 1, she is pain a lot better today she denies any sore throat she denies any difficulty swallowing she denies any shortness breath, she has no chest pain at this time, she has no abdominal pain, she was seen earlier by gastroe nterology and she is scheduled to go for EGD and colonoscopy tomorrow morning. Objective - Vital Signs Vital signs: Vital Signs Temp 98.8 F 03/05/20 07:00 Pulse 76 03/05/20 08:00 Resp 16 03/05/20 08:00 BP 178/63 03/05/20 07:00 Pulse Ox 92 L 03/05/20 07:00 Intake & Output 03/04/20 03/05/20 03/05/20 18:59 06:59 18:59 Intake Total 400 Balance 400 Intake: Oral 400 Other: Voiding Method Toilet Toilet Toilet Diaper Diaper Diaper # Voids 1 2 2 - Exam HEENT: Head is atraumatic, normocephalic, pupils were equal round reactive to light and accommodations, extraocular muscle movement were intact. Oral mucous membranes are dry patient sounded to the upper and lower lip. Neck: Supple, no JVP, decreased carotid upstroke bilaterally. Chest: Clear to auscultation bilaterally, there is no crackles, no wheezes, no chest wall tenderness, no intercostal retractions. Heart: First heart sound is normal, second heart sound is normal, regular, no murmur. Abdomen: Soft, nontender, nondistended, positive bowel sounds. Extremities: No pedal edema bilaterally, dorsalis pedis palpable bilaterally. No calf tenderness. Neurologic examination: Patient is awake and alert and oriented 3. No focal neuro deficits. Cranial nerves III-12 appear grossly intact. - Labs CBC & Chem 7: 03/05/20 07:02 03/05/20 07:02 Labs: Abnormal Lab Results - Last 24 Hours (Table) 03/04/20 03/04/20 03/04/20 Range/Units 11:37 16:49 19:59 RBC (3.80-5.40) m/uL Hgb (11.4-16.0) gm/dL Hct (34.0-46.0) % MCV (80.0-100.0) fL MCH (25.0-35.0) pg MCHC (31.0-37.0) g/dL RDW (11.5-15.5) % Chloride (98-107) mmol/L Carbon Dioxide (22-30) mmol/L POC Glucose (mg/dL) 181 H 134 H 149 H (75-99) mg/dL Alkaline Phosphatase (38-126) U/L Total Protein (6.3-8.2) g/dL Albumin (3.5-5.0) g/dL 03/05/20 03/05/20 03/05/20 Range/Units 07:02 07:02 07:22 RBC 3.62 L (3.80-5.40) m/uL Hgb 7.4 L (11.4-16.0) gm/dL Hct 26.7 L (34.0-46.0) % MCV 73.6 L (80.0-100.0) fL MCH 20.5 L (25.0-35.0) pg MCHC 27.8 L (31.0-37.0) g/dL RDW 18.7 H (11.5-15.5) % Chloride 115 H (98-107) mmol/L Carbon Dioxide 21 L (22-30) mmol/L POC Glucose (mg/dL) 119 H (75-99) mg/dL Alkaline Phosphatase 36 L (38-126) U/L Total Protein 5.7 L (6.3-8.2) g/dL Albumin 3.1 L (3.5-5.0) g/dL Assessment and Plan Plan: Assessment and Plan Plan: 1. Anaphylactic reaction possibly due to IV iron dextran. Patient did receive Solu-Medrol 125 mg IV push 1. She recovered beautifully, we will continue to monitor the patient very closely she does not appear to be in any acute distress. 2. Acute kidney injury with hyperkalemia. Appears to be better today monitor the patient labs. 3. Acute blood loss anemia anemia with possible blood loss secondary to acute G I bleed. Patient has history of AVM. Xarelto is on hold, plan for EGD and colonoscopy tomorrow morning. 4. Paroxysmal atrial fibrillation, chronically on Xarelto. 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 5. History of coronary artery disease status post three-vessel CABG in 1995. 6. Carotid artery disease status post carotid endarterectomy, stable. 7. Diabetes mellitus type 2, insulin requiring. Continue Levemir 14 units at bedtime and NovoLog scale before meals and at bedtime, Tradjenta 5 mg daily. 8. Hypertension, hypertensive cardiovascular disease. Continue Norvasc 5 mg daily, lisinopril 10 mg at bedtime. 9. Hyperlipidemia. Continue Lipitor 10 mg daily. 10. Chronic vertigo. Continue Antivert 12.5 mg twice daily as needed. 11. Gastroesophageal reflux disease. Continue Protonix 40 mg daily. 12. Chronic idiopathic constipation. Hold Amitiza for now. 13. COVID-19 infection not present. 14. No code. 15. Physical therapy evaluation. 16. Plan is to go back home or subacute rehab .
[2020-03-05] MEDS ORDERED: PEG 3350-NA SULF,BICARB,CL/KCL 4,000 ML BOTTLE PO ONE (16:00)
--- NOTE | 2020-03-05 16:30 | PN ---
PROGRESS NOTE DATE OF SERVICE: March 05, 2020 Patient is an 89-year-old pleasant white female admitted to the hospital with fatigue, weakness, vertigo and dizziness. She was noted to have anemia with a hemoglobin of 7.3 g/dL. She denies any GI symptoms. She has been on Xarelto which has been on hold for 2 days. She is doing well. She reports no complaints. She is agreeable to have endoscopic intervention at this time. PHYSICAL EXAMINATION: Appears comfortable in no apparent distress. Vital signs stable. Blood pressure is 171/64, pulse rate 88, temperature 97.8. HEENT examination unremarkable. Conjunctivae pink. Sclerae anicteric. Oral cavity no lesions. NECK no JVD or lymph node enlargement. CHEST was clear to auscultation. HEART: Regular rate and rhythm. ABDOMEN: Soft, bowel sounds are positive. No organomegaly. EXTREMITIES no pedal edema. SKIN no rashes. NEURO: She is alert and oriented x3. No focal deficits. LABS: From today WBC 9.3, hemoglobin 7.4, platelets 255. Basic metabolic panel is within normal limits. IMPRESSION: 1. Severe symptomatic anemia secondary to occult gastrointestinal blood loss. Hemoglobin stable at 7.3 g/dL. Presently on Xarelto which is on hold. Last EGD/ colonoscopy [address] Hackett showed evidence of cecal AVMs that were cauterized. 2. Acute kidney injury, improving. 3. History of atrial fibrillation on Xarelto, currently on hold. 4. Anaphylactic reaction to IV iron. The patient is on IV Solu-Medrol, doing much better. RECOMMENDATIONS: We will proceed with EGD/colonoscopy tomorrow. Continue to hold off Xarelto. I discussed with her risks, benefits, and complications of the procedure. She is agreeable to it. We will monitor CBC on a daily basis. We will follow with you closely. Thank you for this consultation. MMODL / IJN: [id number] /
[2020-03-05 17:06] LABS: Glucose,Whole Blood 223 mg/dL (75-99)
[2020-03-05 20:23] LABS: Glucose,Whole Blood 163 mg/dL (75-99)
[2020-03-05] MEDS: INSULIN DETEMIR (LEVEMIR) 100 UNIT/ML SYR SQ SCH (20:23)
[2020-03-05] MEDS: LISINOPRIL 10 MG TAB PO SCH (20:23)
[2020-03-06] MEDS: HYDROcodone/APAP 5-325MG 1 EACH TAB PO SCH ×3 (06:49→21:14)
[2020-03-06] MEDS: CHOLECALCIFEROL 1,000 UNIT TAB PO SCH (06:49)
[2020-03-06] MEDS: ATORVASTATIN 10 MG TAB PO SCH (06:49)
[2020-03-06] MEDS: LINAGLIPTIN 5 MG TABLET PO SCH (06:49)
[2020-03-06] MEDS: CHLORHEXIDINE GLUCONATE 15 ML CUP MUCOUS MEM SCH ×2 (06:49→23:48)
[2020-03-06 07:02] LABS: Glucose,Whole Blood 89 mg/dL (75-99)
[2020-03-06] MEDS: INSULIN ASPART (NovoLOG) 100 UNIT/ML VIAL SQ SCH ×4 (07:12→20:07)
[2020-03-06] MEDS: amLODIPine 5 MG TAB PO SCH (07:13)
[2020-03-06] MEDS: PANTOPRAZOLE 40 MG TABLET PO SCH (07:13)
[2020-03-06 08:31] LABS: Anisocytosis Slight; Basophils % (A) 0 %; Eosinophils % (A) 0 %; Hypochromasia Marked; Lymphocytes # (A) 1.3 k/uL (1.0-4.8); Lymphocytes % (A) 13 %; MCH 20.6 pg (25.0-35.0); MCHC 28.1 g/dL (31.0-37.0); MCV 73.2 fL (80.0-100.0); Mean Platelet Volume 7.3; Microcytosis Moderate; Monocytes # (A) 0.6 k/uL (0-1.0); Monocytes % (A) 6 %; Neutrophils # (A) 7.8 k/uL (1.3-7.7); Neutrophils % (A) 78 %; Platelet Count 241 k/uL (150-450); Poikilocytosis Slight; RBC 3.41 m/uL (3.80-5.40); RDW 19.3 % (11.5-15.5)
[2020-03-06 08:43] LABS: Calcium 8.2 mg/dL (8.4-10.2); Potassium 4.4 mmol/L (3.5-5.1)
--- NOTE | 2020-03-06 10:41 | P.PN ---
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 Patient presented yesterday to [facility] emergency center due to concerns for worsening vertigo that is aware she's ever had. She did not have any falls at home. She utilizes a walker for ambulation. She denies having any headache, lateral weakness, numbness or tingling, no chest pain or shortness of breath. She's had no nausea, vomiting or diarrhea. She is complaining of soreness in her mouth including lesions on her lips. Patient was found to be afebrile, heart rate 85, blood pressure 180/56 and pulse ox 97% on room air. EKG was in normal sinus rhythm with no acute ST changes. Chest x-ray revealed cardiomegaly correlate for COPD. Patient was found to have a potassium of 6.0 and she is status post calcium chloride, insulin and D50. Hemoglobin of 8, WBC 11.9. Sodium 138, Chloride 110, CO2 20, BUN 46 and creatinine 1.51, blood sugar 202. Lactic acid 0.9, troponin negative. Urinalysis clear with nitrate and leukoesterase negative. Xarelto has been placed on hold. Patient admitted to the [facility] floor and consult requested with GI.. 03/04: Patient is sitting up in bed in no apparent distress she is complaining of increased burning sensation in her throat as well as pain in her lips, she was seen earlier by gastroenterology was recommended for the patient to go for EGD and colonoscopy as she is anemic with microcytosis, her hemoglobin did drop to 7.3 she will be given iron infusion today and possibly tomorrow, she will need to be scheduled for EGD and colonoscopy for further evaluation of chronic blood loss. 03/05: Patient is sitting up in bed that she is feeling a lot better than earlier in the morning when she developed to have a significant swelling of her lips and her tongue thought to be due to anaphylactic reaction with a questionable reaction to the IV iron and dextran, patient did receive Solu-Medrol 125 mg IV push 1, she is pain a lot better today she denies any sore throat she denies any difficulty swallowing she denies any shortness breath, she has no chest pain at this time, she has no abdominal pain, she was seen earlier by gastroe nterology and she is scheduled to go for EGD and colonoscopy tomorrow morning. 03/06: Patient is nothing by mouth this morning and she is scheduled for EGD and colonoscopy today with Dr. Hackett. Hemoglobin is morning is 7.0, BUN 21 and creatinine 1.08. Patient has been hemodynamically stable, afebrile, pulse ox 96% on room air. Discharge plan is to return home with family. Objective - Vital Signs Vital signs: Vital Signs Temp 97.8 F 03/06/20 07:00 Pulse 81 03/06/20 07:00 Resp 16 03/06/20 07:00 BP 153/64 03/06/20 07:00 Pulse Ox 96 03/06/20 07:00 Intake & Output 03/05/20 03/06/20 03/06/20 18:59 06:59 18:59 Intake Total 1000 Balance 1000 Intake: Oral 1000 Other: Voiding Method Toilet Toilet Toilet Diaper Diaper Diaper # Voids 2 2 # Bowel Movements 2 - Exam Review of Systems Constitutional: Reports fatigue weakness, Denies anorexia, Denies chills, Denies fever, Denies lethargy, Denies poor appetite Eyes: denies blurred vision, denies pain Ears, nose, mouth and throat: Reports mouth pain, Reports vertigo, Denies dysphagia, Denies headache, Denies sore throat Cardiovascular: Denies chest pain, Denies decreased exercise tolerance, Denies dyspnea on exertion, Denies edema, Denies leg edema, Denies lightheadedness, Denies shortness of breath, Denies syncope Respiratory: Denies cough, Denies cough with sputum, Denies dyspnea, Denies excessive sputum, Denies hemoptysis, Denies home oxygen, Denies respiratory infections Gastrointestinal: Denies abdominal pain, Denies BRBPR, Denies diarrhea, Denies hematemesis, Denies hematochezia, Denies melena, Denies nausea, Denies vomiting Genitourinary: Denies dysuria, Denies hematuria, Denies urgency, Denies urinary frequency Menstruation: Reports postmenopausal Musculoskeletal: Reports gait dysfunction, Reports muscle weakness, Denies frequent falls, Denies myalgias Integumentary: Denies pruritus, Denies rash, Denies wounds Neurological: Reports vertigo, Denies change in mentation, Denies change in speech, Denies seizures, Denies syncope Psychiatric: Denies anxiety, Denies depression Endocrine: Denies fatigue, Denies weight change Physical examination HEENT: Head is atraumatic, normocephalic, pupils were equal round reactive to light and accommodations, extraocular muscle movement were intact. Oral mucous membranes are dry. Neck: Supple, no JVP, decreased carotid upstroke bilaterally. Chest: Clear to auscultation bilaterally, there is no crackles, no wheezes, no chest wall tenderness, no intercostal retractions. Heart: First heart sound is normal, second heart sound is normal, regular, no murmur. Abdomen: Soft, nontender, nondistended, positive bowel sounds. No abdominal tenderness. Extremities: No pedal edema bilaterally, dorsalis pedis palpable bilaterally. No calf tenderness. Neurologic examination: Patient is awake and alert and oriented 3. No focal neuro deficits. Cranial nerves III-12 appear grossly intact. - Labs CBC & Chem 7: 03/06/20 07:24 03/06/20 07:24 Labs: Abnormal Lab Results - Last 24 Hours (Table) 03/05/20 03/05/20 03/05/20 Range/Units 07:02 07:02 11:23 RBC 3.62 L (3.80-5.40) m/uL Hgb 7.4 L (11.4-16.0) gm/dL Hct 26.7 L (34.0-46.0) % MCV 73.6 L (80.0-100.0) fL MCH 20.5 L (25.0-35.0) pg MCHC 27.8 L (31.0-37.0) g/dL RDW 18.7 H (11.5-15.5) % Chloride 115 H (98-107) mmol/L Carbon Dioxide 21 L (22-30) mmol/L POC Glucose (mg/dL) 202 H (75-99) mg/dL Alkaline Phosphatase 36 L (38-126) U/L Total Protein 5.7 L (6.3-8.2) g/dL Albumin 3.1 L (3.5-5.0) g/dL 03/05/20 03/05/20 Range/Units 17:03 20:17 RBC (3.80-5.40) m/uL Hgb (11.4-16.0) gm/dL Hct (34.0-46.0) % MCV (80.0-100.0) fL MCH (25.0-35.0) pg MCHC (31.0-37.0) g/dL RDW (11.5-15.5) % Chloride (98-107) mmol/L Carbon Dioxide (22-30) mmol/L POC Glucose (mg/dL) 223 H 163 H (75-99) mg/dL Alkaline Phosphatase (38-126) U/L Total Protein (6.3-8.2) g/dL Albumin (3.5-5.0) g/dL Assessment and Plan Plan: Assessment and Plan Plan: 1. Anaphylactic reaction possibly due to IV iron dextran. Resolved. 2. Acute kidney injury with hyperkalemia. Appears to be better today monitor the patient labs. 3. Acute blood loss anemia anemia with possible blood loss secondary to acute GI bleed. Patient has history of AVM. Xarelto is on hold, plan for EGD and colonoscopy today 4. Paroxysmal atrial fibrillation, chronically on Xarelto. Xarelto is currentl y on hold due to possible GI bleed, with a prior history of AV malformation in the cecum. 5. History of coronary artery disease status post three-vessel CABG in 1995. 6. Carotid artery disease status post carotid endarterectomy, stable. 7. Diabetes mellitus type 2, insulin requiring. Continue Levemir 14 units at bedtime and NovoLog scale before meals and at bedtime, Tradjenta 5 mg daily. 8. Hypertension, hypertensive cardiovascular disease. Continue Norvasc 5 mg daily, lisinopril 10 mg at bedtime. 9. Hyperlipidemia. Continue Lipitor 10 mg daily. 10. Chronic vertigo. Continue Antivert 12.5 mg twice daily as needed. 11. Gastroesophageal reflux disease. Continue Protonix 40 mg daily. 12. Chronic idiopathic constipation. Hold Amitiza for now. 13. COVID-19 infection not present. 14. No code. 15. Physical therapy evaluation. 16. Plan is to go back home without home care.
[2020-03-06 11:29] LABS: Glucose,Whole Blood 93 mg/dL (75-99)
[2020-03-06] MEDS ORDERED: PROPOFOL 10 MG/ML 20 ML VIAL IV ONE (13:42)
[2020-03-06] MEDS ORDERED: IV FLUID CONTINUATION 1,000 ML IV ONE ×2 (14:15)
--- NOTE | 2020-03-06 14:50 | P.PCN ---
Date of Procedure: 03/06/20 Description of Procedure: Brief history: Patient is a pleasant 89-year-old female who presented to the hospital with symptomatic anemia. Previously similar presentation to the hospital 2 years ago at which time EGD was negative for source of bleeding and cecal AVM was found and treated with argon plasma coagulation therapy. Procedure performed: Esophagogastroduodenoscopy Colonoscopy with argon plasma coagulation treatment of AVM Estimated blood loss: Minimal. Preoperative diagnosis: Symptomatic iron deficiency anemia Anesthesia: MAC Procedure: After informed consent was obtained from the patient was brought into the endoscopy unit and IV sedation was administered by anesthesia under continuous monitoring. Initially upper endoscopy was done. The Olympus GF 190 video endoscope was inserted inserted into the mouth and esophagus intubated without any difficulty and was gradually advanced into the stomach and duodenum and carefully examined. The bulb and second part of the duodenum appeared normal. The scope was then withdrawn into the stomach adequately insufflated with air a nd upon careful examination the antrum and body, cardia and fundus appeared grossly normal. The GE junction was located at 35 cm to the incisors. The patient had a widely patent Schatzki ring at the GE junction. It appeared regular with no erythema erosions or ulcerations. Rest of the esophagus appeared normal. Patient tolerated the procedure well. At this time the patient continued to remain sedation. Initial digital rectal examination was normal. Olympus CF 190 video colonoscope was then inserted into the rectum and gradually advanced to the cecum without any difficulty. In the cecum an AVM was noted and treated with argon plasma coagulation. Careful examination was performed as the scope was gradually being withdrawn. The prep was excellent. The cecum, ascending colon, transverse colon, descending colon, sigmoid colon and rectum appeared normal. Large and small diverticula were noted in the sigmoid and descending colon. Retroflexion was performed in the rectum and no lesions were noted and mild internal hemorrhoids were seen. Patient tolerated the procedure well. Impression: 1. Widely patent Schatzki ring, otherwise normal upper endoscopic evaluation. 2. Scattered diverticulosis with no active bleeding, AVM treated with APC in the cecum. Recommendations: Findings of this examination were discussed with the patient. Okay for diet. Would hold anticoagulation therapy for an additional 48 hours. Okay for discharge on otherwise medically stable.
[2020-03-06 16:27] LABS: Glucose,Whole Blood 275 mg/dL (75-99)
[2020-03-06 20:08] LABS: Glucose,Whole Blood 112 mg/dL (75-99)
[2020-03-06] MEDS: LISINOPRIL 10 MG TAB PO SCH (21:12)
[2020-03-06] MEDS: INSULIN DETEMIR (LEVEMIR) 100 UNIT/ML SYR SQ SCH (21:13)
[2020-03-07 06:44] LABS: Glucose,Whole Blood 89 mg/dL (75-99)
[2020-03-07] MEDS: INSULIN ASPART (NovoLOG) 100 UNIT/ML VIAL SQ SCH ×4 (06:56→21:00)
[2020-03-07] MEDS: amLODIPine 5 MG TAB PO SCH (07:02)
[2020-03-07] MEDS: ATORVASTATIN 10 MG TAB PO SCH (07:02)
[2020-03-07] MEDS: CHOLECALCIFEROL 1,000 UNIT TAB PO SCH (07:03)
[2020-03-07] MEDS: HYDROcodone/APAP 5-325MG 1 EACH TAB PO SCH ×3 (07:03→21:00)
[2020-03-07] MEDS: CHLORHEXIDINE GLUCONATE 15 ML CUP MUCOUS MEM SCH ×2 (07:03→20:55)
[2020-03-07] MEDS: PANTOPRAZOLE 40 MG TABLET PO SCH (07:03)
[2020-03-07] MEDS: LINAGLIPTIN 5 MG TABLET PO SCH (07:03)
[2020-03-07 07:56] LABS: Anisocytosis Slight; Basophils % (A) 0 %; Eosinophils # (A) 0.1 k/uL (0-0.7); Eosinophils % (A) 1 %; HCT 27.5 % (34.0-46.0); HGB 7.8 gm/dL (11.4-16.0); Hypochromasia Marked; Lymphocytes % (A) 7 %; MCH 20.9 pg (25.0-35.0); MCHC 28.2 g/dL (31.0-37.0); MCV 74.3 fL (80.0-100.0); Mean Platelet Volume 7.2; Microcytosis Moderate; Monocytes % (A) 7 %; Neutrophils # (A) 11.5 k/uL (1.3-7.7); Neutrophils % (A) 84 %; Platelet Count 228 k/uL (150-450); Poikilocytosis Slight; RBC 3.71 m/uL (3.80-5.40); RDW 19.7 % (11.5-15.5); WBC 13.8 k/uL (3.8-10.6)
[2020-03-07] MEDS ORDERED: FUROSEMIDE 10 MG/ML 4 ML VIAL IV STA (08:11)
--- NOTE | 2020-03-07 08:42 | XR ---
EXAMINATION TYPE: XR chest 1V portable DATE OF EXAM: 03/07/2020 HISTORY: Shortness of breath. COMPARISON: 03/02/2020 TECHNIQUE: Single view of the chest is submitted. FINDINGS: Demonstrated are scattered senescent parenchymal change. New infiltrate left lower lobe with small effusion. The heart is stable. Hilar and mediastinal structures are within normal limits. Degenerative changes are seen of the dorsal spine. IMPRESSION: 1. New infiltrate left lower lobe with small effusion.
[2020-03-07 09:41] LABS: Albumin 3.1 g/dL (3.5-5.0); Calcium 8.2 mg/dL (8.4-10.2); Potassium 4.3 mmol/L (3.5-5.1); Total Bilirubin 0.6 mg/dL (0.2-1.3); Total Protein 5.9 g/dL (6.3-8.2)
[2020-03-07] MEDS: LEVOFLOXACIN 500MG-D5W PMX 500 MG in DEXTROSE/WATER 1 100ML.BAG IVPB SCH (10:55)
[2020-03-07] MEDS: IPRATROPIUM-ALBUTEROL 3 ML NEB INHALATION SCH ×3 (11:36→20:28)
[2020-03-07 12:08] LABS: Glucose,Whole Blood 188 mg/dL (75-99)
--- NOTE | 2020-03-07 12:22 | P.PN ---
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 Patient presented yesterday to [facility] emergency center due to concerns for worsening vertigo that is aware she's ever had. She did not have any falls at home. She utilizes a walker for ambulation. She denies having any headache, lateral weakness, numbness or tingling, no chest pain or shortness of breath. She's had no nausea, vomiting or diarrhea. She is complaining of soreness in her mouth including lesions on her lips. Patient was found to be afebrile, heart rate 85, blood pressure 180/56 and pulse ox 97% on room air. EKG was in normal sinus rhythm with no acute ST changes. Chest x-ray revealed cardiomegaly correlate for COPD. Patient was found to have a potassium of 6.0 and she is status post calcium chloride, insulin and D50. Hemoglobin of 8, WBC 11.9. Sodium 138, Chloride 110, CO2 20, BUN 46 and creatinine 1.51, blood sugar 202. Lactic acid 0.9, troponin negative. Urinalysis clear with nitrate and leukoesterase negative. Xarelto has been placed on hold. Patient admitted to the [facility] floor and consult requested with GI.. 03/04: Patient is sitting up in bed in no apparent distress she is complaining of increased burning sensation in her throat as well as pain in her lips, she was seen earlier by gastroenterology was recommended for the patient to go for EGD and colonoscopy as she is anemic with microcytosis, her hemoglobin did drop to 7.3 she will be given iron infusion today and possibly tomorrow, she will need to be scheduled for EGD and colonoscopy for further evaluation of chronic blood loss. 03/05: Patient is sitting up in bed that she is feeling a lot better than earlier in the morning when she developed to have a significant swelling of her lips and her tongue thought to be due to anaphylactic reaction with a questionable reaction to the IV iron and dextran, patient did receive Solu-Medrol 125 mg IV push 1, she is pain a lot better today she denies any sore throat she denies any difficulty swallowing she denies any shortness breath, she has no chest pain at this time, she has no abdominal pain, she was seen earlier by gastroe nterology and she is scheduled to go for EGD and colonoscopy tomorrow morning. 03/06: Patient is nothing by mouth this morning and she is scheduled for EGD and colonoscopy today with Dr. Hackett. Hemoglobin is morning is 7.0, BUN 21 and creatinine 1.08. Patient has been hemodynamically stable, afebrile, pulse ox 96% on room air. Discharge plan is to return home with family. 03/07: Yesterday, patient underwent EGD with Dr. Hackett which revealed widely patent Schatzki's ring, otherwise normal upper endoscopy evaluation. Colonoscopy revealed scattered diverticulosis with no active bleeding, AVM treated with argon plasma coagulation in the cecum. Patient was cleared for diet, plan to hold anticoagulation for additional 48 hours but otherwise was cleared for discharge by GI. One dose of IV Lasix given this morning. Chest x- ray reveals new infiltrate left lower lobe with small effusion and patient started on IV Levaquin and nebulizer treatments. Patient has been afebrile, heart rate 104, blood pressure 194/66 and pulse ox 92% on 2 L nasal cannula. Repeat blood work reveals hemoglobin 7.8, WBC 13.8, platelet count 228. BUN 19 creatinine 1.13. Blood sugars running between 86 and 188. Anticipate probable discharge tomorrow. Objective - Vital Signs Vital signs: Vital Signs Temp 98.4 F 03/07/20 07:00 Pulse 100 03/07/20 11:48 Resp 20 03/07/20 07:00 BP 194/66 03/07/20 07:00 Pulse Ox 92 L 03/07/20 07:00 Intake & Output 03/06/20 03/07/20 03/07/20 18:59 06:59 18:59 Intake Total 400 Output Total 0 Balance 400 0 Intake: IV 400 Output: Stool 0 Other: Voiding Method Toilet Toilet Toilet Diaper Diaper Diaper # Voids 2 2 - Exam Review of Systems Constitutional: Reports fatigue weakness, Denies anorexia, Denies chills, Denies fever, Denies lethargy, Denies poor appetite Eyes: denies blurred vision, denies pain Ears, nose, mouth and throat: Reports mouth pain, Reports vertigo, Denies dysphagia, Denies headache, Denies sore throat Cardiovascular: Denies chest pain, Denies decreased exercise tolerance, Denies dyspnea on exertion, Denies edema, Denies leg edema, Denies lightheadedness, Denies shortness of breath, Denies syncope Respiratory: Denies cough, Denies cough with sputum, Denies dyspnea, Denies excessive sputum, Denies hemoptysis, Denies home oxygen, Denies respiratory infections Gastrointestinal: Denies abdominal pain, Denies BRBPR, Denies diarrhea, Denies hematemesis, Denies hematochezia, Denies melena, Denies nausea, Denies vomiting Genitourinary: Denies dysuria, Denies hematuria, Denies urgency, Denies urinary frequency Menstruation: Reports postmenopausal Musculoskeletal: Reports gait dysfunction, Reports muscle weakness, Denies fr equent falls, Denies myalgias Integumentary: Denies pruritus, Denies rash, Denies wounds Neurological: Reports vertigo, Denies change in mentation, Denies change in speech, Denies seizures, Denies syncope Psychiatric: Denies anxiety, Denies depression Endocrine: Denies fatigue, Denies weight change Physical examination HEENT: Head is atraumatic, normocephalic, pupils were equal round reactive to light and accommodations, extraocular muscle movement were intact. Oral mucous membranes are dry. Neck: Supple, no JVP, decreased carotid upstroke bilaterally. Chest: Clear to auscultation bilaterally, there is no crackles, no wheezes, no chest wall tenderness, no intercostal retractions. Heart: First heart sound is normal, second heart sound is normal, regular, no murmur. Abdomen: Soft, nontender, nondistended, positive bowel sounds. No abdominal tenderness. Extremities: No pedal edema bilaterally, dorsalis pedis palpable bilaterally. No calf tenderness. Neurologic examination: Patient is awake and alert and oriented 3. No focal neuro deficits. Cranial nerves III-12 appear grossly intact. - Labs CBC & Chem 7: 03/07/20 07:03 03/07/20 07:03 Labs: Abnormal Lab Results - Last 24 Hours (Table) 03/06/20 03/06/20 03/07/20 Range/Units 16:24 20:06 07:03 WBC 13.8 H (3.8-10.6) k/uL RBC 3.71 L (3.80-5.40) m/uL Hgb 7.8 L (11.4-16.0) gm/dL Hct 27.5 L (34.0-46.0) % MCV 74.3 L (80.0-100.0) fL MCH 20.9 L (25.0-35.0) pg MCHC 28.2 L (31.0-37.0) g/dL RDW 19.7 H (11.5-15.5) % Neutrophils # 11.5 H (1.3-7.7) k/uL Chloride (98-107) mmol/L Carbon Dioxide (22-30) mmol/L BUN (7-17) mg/dL Creatinine (0.52-1.04) mg/dL POC Glucose (mg/dL) 275 H 112 H (75-99) mg/dL Calcium (8.4-10.2) mg/dL Total Protein (6.3-8.2) g/dL Albumin (3.5-5.0) g/dL 03/07/20 03/07/20 Range/Units 07:03 12:07 WBC (3.8-10.6) k/uL RBC (3.80-5.40) m/uL Hgb (11.4-16.0) gm/dL Hct (34.0-46.0) % MCV (80.0-100.0) fL MCH (25.0-35.0) pg MCHC (31.0-37.0) g/dL RDW (11.5-15.5) % Neutrophils # (1.3-7.7) k/uL Chloride 116 H (98-107) mmol/L Carbon Dioxide 21 L (22-30) mmol/L BUN 19 H (7-17) mg/dL Creatinine 1.13 H (0.52-1.04) mg/dL POC Glucose (mg/dL) 188 H (75-99) mg/dL Calcium 8.2 L (8.4-10.2) mg/dL Total Protein 5.9 L (6.3-8.2) g/dL Albumin 3.1 L (3.5-5.0) g/dL Assessment and Plan Plan: Assessment and Plan Plan: 1. Anaphylactic reaction possibly due to IV iron dextran. Resolved. 2. Acute kidney injury with hyperkalemia. Appears to be better today monitor the patient labs. 3. Acute blood loss anemia anemia secondary to acute GI bleed due to AVM at cecum. Patient has history of AVM. Patient is status post EGD and colonoscopy and argon plasma treatment for AVM. Xarelto is on hold for another 24 hours. 4. Paroxysmal atrial fibrillation, chronically on Xarelto. 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 5. Possible early left lower lobe pneumonia. Patient started on Levaquin and DuoNeb treatments 4 times daily scheduled. 6. History of coronary artery disease status post three-vessel CABG in 1995. 7. Carotid artery disease status post carotid endarterectomy, stable. 8. Diabetes mellitus type 2, insulin requiring. Continue Levemir 14 units at bedtime and NovoLog scale before meals and at bedtime, Tradjenta 5 mg daily. 9. Hypertension, hypertensive cardiovascular disease. Continue Norvasc 5 mg d aily, lisinopril 10 mg at bedtime. 10. Hyperlipidemia. Continue Lipitor 10 mg daily. 11. Chronic vertigo. Continue Antivert 12.5 mg twice daily as needed. 12. Gastroesophageal reflux disease. Continue Protonix 40 mg daily. 13. Chronic idiopathic constipation. Hold Amitiza for now. 14. COVID-19 infection not present. 15. No code. 16. Physical therapy evaluation. 17. Plan is to go back home without home care.
[2020-03-07 17:06] LABS: Glucose,Whole Blood 155 mg/dL (75-99)
[2020-03-07 20:23] LABS: Glucose,Whole Blood 183 mg/dL (75-99)
[2020-03-07] MEDS: LISINOPRIL 10 MG TAB PO SCH (20:55)
[2020-03-07] MEDS: INSULIN DETEMIR (LEVEMIR) 100 UNIT/ML SYR SQ SCH (20:55)
--- NOTE | 2020-03-07 21:21 | P.PN ---
Subjective Progress Note Date: 03/07/20 Principal diagnosis: Symptomatic iron deficiency anemia, cecal AVM Patient is seen lying in bed with no acute complaints. Tolerating her diet. No abdominal pain. No signs or symptoms of GI bleed. Objective - Vital Signs Vital signs: Vital Signs Temp 98.4 F 03/07/20 07:00 Pulse 100 03/07/20 11:48 Resp 20 03/07/20 07:00 BP 194/66 03/07/20 07:00 Pulse Ox 92 L 03/07/20 07:00 Intake & Output 03/06/20 03/07/20 03/07/20 18:59 06:59 18:59 Intake Total 400 Output Total 0 Balance 400 0 Intake: IV 400 Output: Stool 0 Other: Voiding Method Toilet Toilet Toilet Diaper Diaper Diaper # Voids 2 2 - Exam On physical examination, patient appears comfortable in no apparent distress. HEAD: Normocephalic, atraumatic. EYES: No scleral icterus. No conjunctival injection. MOUTH: No lesions, tongue midline. NECK: Trachea midline, no gross abnormalities. ABDOMEN: Soft, obese. Bowel sounds are positive. No organomegaly. No guarding or rigidity. EXTREMITIES: No pedal edema. SKIN: No rashes, no jaundice. NEUROLOGIC: Alert and oriented x3. - Labs CBC & Chem 7: 03/07/20 07:03 03/07/20 07:03 Labs: Abnormal Lab Results - Last 24 Hours (Table) 03/06/20 03/06/20 03/07/20 Range/Units 16:24 20:06 07:03 WBC 13.8 H (3.8-10.6) k/uL RBC 3.71 L (3.80-5.40) m/uL Hgb 7.8 L (11.4-16.0) gm/dL Hct 27.5 L (34.0-46.0) % MCV 74.3 L (80.0-100.0) fL MCH 20.9 L (25.0-35.0) pg MCHC 28.2 L (31.0-37.0) g/dL RDW 19.7 H (11.5-15.5) % Neutrophils # 11.5 H (1.3-7.7) k/uL Chloride (98-107) mmol/L Carbon Dioxide (22-30) mmol/L BUN (7-17) mg/dL Creatinine (0.52-1.04) mg/dL POC Glucose (mg/dL) 275 H 112 H (75-99) mg/dL Calcium (8.4-10.2) mg/dL Total Protein (6.3-8.2) g/dL Albumin (3.5-5.0) g/dL 03/07/20 Range/Units 07:03 WBC (3.8-10.6) k/uL RBC (3.80-5.40) m/uL Hgb (11.4-16.0) gm/dL Hct (34.0-46.0) % MCV (80.0-100.0) fL MCH (25.0-35.0) pg MCHC (31.0-37.0) g/dL RDW (11.5-15.5) % Neutrophils # (1.3-7.7) k/uL Chloride 116 H (98-107) mmol/L Carbon Dioxide 21 L (22-30) mmol/L BUN 19 H (7-17) mg/dL Creatinine 1.13 H (0.52-1.04) mg/dL POC Glucose (mg/dL) (75-99) mg/dL Calcium 8.2 L (8.4-10.2) mg/dL Total Protein 5.9 L (6.3-8.2) g/dL Albumin 3.1 L (3.5-5.0) g/dL Assessment and Plan (1) Acute blood loss anemia Narrative/Plan: 89-year-old female who presented to the hospital with severe symptomatic iron deficiency anemia secondary to likely blood loss from cecal AVM. The patient underwent upper endoscopy with findings of a widely patent Schatzki's ring and colonoscopy with findings of a cecal AVM which was also seen 2018. This was treated with argon plasma coagulation therapy. She also had diverticulosis noted. Currently hemoglobin stable with no acute complaints from the patient. Current Visit: No Status: Acute Code(s): D62 - ACUTE POSTHEMORRHAGIC ANEMIA SNOMED Code(s): 226994820 Plan: Supportive care Okay for diet Continue to monitor hemoglobin and hematocrit and transfuse as needed No plans for further endoscopic evaluation at this time Continue to hold anticoagulation therapy for an additional 24 hours Thank you for allowing us to participate in the care of the patient, the GI service will stand by, please call us back with any questions or concerns
[2020-03-07] MEDS: DILTIAZEM 125 MG in SODIUM CHLORIDE 0.9% 100 ML IV SCH (22:39)
[2020-03-07] MEDS: RIVAROXABAN 10 MG TAB PO SCH (22:44)
[2020-03-08 06:24] LABS: Glucose,Whole Blood 92 mg/dL (75-99)
[2020-03-08] MEDS: INSULIN ASPART (NovoLOG) 100 UNIT/ML VIAL SQ SCH ×4 (06:36→21:00)
[2020-03-08] MEDS: PANTOPRAZOLE 40 MG TABLET PO SCH (06:44)
[2020-03-08] MEDS: IPRATROPIUM-ALBUTEROL 3 ML NEB INHALATION SCH ×4 (08:21→18:57)
[2020-03-08] MEDS: RIVAROXABAN 10 MG TAB PO SCH (09:22)
[2020-03-08] MEDS: amLODIPine 5 MG TAB PO SCH (09:22)
[2020-03-08] MEDS: ATORVASTATIN 10 MG TAB PO SCH (09:22)
[2020-03-08] MEDS: LINAGLIPTIN 5 MG TABLET PO SCH (09:22)
[2020-03-08] MEDS: CHOLECALCIFEROL 1,000 UNIT TAB PO SCH (09:23)
[2020-03-08] MEDS: HYDROcodone/APAP 5-325MG 1 EACH TAB PO SCH ×3 (09:23→20:59)
--- NOTE | 2020-03-08 10:58 | P.PN ---
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 Patient presented yesterday to [facility] emergency center due to concerns for worsening vertigo that is aware she's ever had. She did not have any falls at home. She utilizes a walker for ambulation. She denies having any headache, lateral weakness, numbness or tingling, no chest pain or shortness of breath. She's had no nausea, vomiting or diarrhea. She is complaining of soreness in her mouth including lesions on her lips. Patient was found to be afebrile, heart rate 85, blood pressure 180/56 and pulse ox 97% on room air. EKG was in normal sinus rhythm with no acute ST changes. Chest x-ray revealed cardiomegaly correlate for COPD. Patient was found to have a potassium of 6.0 and she is status post calcium chloride, insulin and D50. Hemoglobin of 8, WBC 11.9. Sodium 138, Chloride 110, CO2 20, BUN 46 and creatinine 1.51, blood sugar 202. Lactic acid 0.9, troponin negative. Urinalysis clear with nitrate and leukoesterase negative. Xarelto has been placed on hold. Patient admitted to the [facility] floor and consult requested with GI.. 03/04: Patient is sitting up in bed in no apparent distress she is complaining of increased burning sensation in her throat as well as pain in her lips, she was seen earlier by gastroenterology was recommended for the patient to go for EGD and colonoscopy as she is anemic with microcytosis, her hemoglobin did drop to 7.3 she will be given iron infusion today and possibly tomorrow, she will need to be scheduled for EGD and colonoscopy for further evaluation of chronic blood loss. 03/05: Patient is sitting up in bed that she is feeling a lot better than earlier in the morning when she developed to have a significant swelling of her lips and her tongue thought to be due to anaphylactic reaction with a questionable reaction to the IV iron and dextran, patient did receive Solu-Medrol 125 mg IV push 1, she is pain a lot better today she denies any sore throat she denies any difficulty swallowing she denies any shortness breath, she has no chest pain at this time, she has no abdominal pain, she was seen earlier by gastroe nterology and she is scheduled to go for EGD and colonoscopy tomorrow morning. 03/06: Patient is nothing by mouth this morning and she is scheduled for EGD and colonoscopy today with Dr. Hackett. Hemoglobin is morning is 7.0, BUN 21 and creatinine 1.08. Patient has been hemodynamically stable, afebrile, pulse ox 96% on room air. Discharge plan is to return home with family. 03/07: Yesterday, patient underwent EGD with Dr. Hackett which revealed widely patent Schatzki's ring, otherwise normal upper endoscopy evaluation. Colonoscopy revealed scattered diverticulosis with no active bleeding, AVM treated with argon plasma coagulation in the cecum. Patient was cleared for diet, plan to hold anticoagulation for additional 48 hours but otherwise was cleared for discharge by GI. One dose of IV Lasix given this morning. Chest x- ray reveals new infiltrate left lower lobe with small effusion and patient started on IV Levaquin and nebulizer treatments. Patient has been afebrile, heart rate 104, blood pressure 194/66 and pulse ox 92% on 2 L nasal cannula. Repeat blood work reveals hemoglobin 7.8, WBC 13.8, platelet count 228. BUN 19 creatinine 1.13. Blood sugars running between 86 and 188. Anticipate probable discharge tomorrow. 03/08: Patient has been afebrile, heart rate 99, blood pressure 141/63, pulse ox 92% on 4 L nasal cannula. Patient does not have home O2. Last evening, patient developed A. fib with RVR leading up to 150s. Patient has been started back on Xarelto last evening. PT OT is following the patient and recommended home care. Objective - Vital Signs Vital signs: Vital Signs Temp 98.2 F 03/08/20 04:00 Pulse 96 03/08/20 08:36 Resp 20 03/08/20 04:00 BP 141/63 03/08/20 04:00 Pulse Ox 92 L 03/08/20 04:00 Intake & Output 03/07/20 03/08/20 03/08/20 18:59 06:59 18:59 Intake Total 11.083 Output Total 0 0 Balance 0 11.083 Weight 53.5 kg Intake: Intake, IV Titration 11.083 Amount Diltiazem 125 mg In 11.083 Sodium Chloride 0.9% 100 ml @ 5 MG/HR 5 mls/hr IV .Q24H [facility] Rx#:[id number] Output: Urine 0 Stool 0 Other: Voiding Method Toilet Diaper # Voids 1 - Labs CBC & Chem 7: 03/07/20 07:03 03/07/20 07:03 Labs: Abnormal Lab Results - Last 24 Hours (Table) 03/07/20 03/07/20 03/07/20 Range/Units 12:07 16:59 20:22 POC Glucose (mg/dL) 188 H 155 H 183 H (75-99) mg/dL
[2020-03-08 11:35] LABS: Glucose,Whole Blood 135 mg/dL (75-99)
[2020-03-08] MEDS: LEVOFLOXACIN 500MG-D5W PMX 500 MG in DEXTROSE/WATER 1 100ML.BAG IVPB SCH (11:55)
--- NOTE | 2020-03-08 12:47 | CONS ---
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 Cardiology consultation was requested because of an episode of paroxysmal atrial fibrillation. The patient is back in sinus mechanism. Her breathing has been stable, but she is complaining of chest discomfort this morning, worse with deep breathing and with palpation. She denies any palpitation. She had the dizziness earlier, but that is better now. She denies any significant peripheral edema, no PND, no orthopnea. Her breathing has been stable, overall. She underwent endoscopy by Dr. Hackett on 03/06 and was found to have widely patent Schatzki ring with scattered diverticulosis and AVM treated. Her coronary risk factors remarkable for prior history of smoking. She is hypertensive and diabetic and hyperlipidemic. MEDICATION: Include Norvasc, Tradjenta, Protonix. She is back on her Xarelto 15 mg daily, simvastatin 20 mg daily, insulin, Amitiza and Zestril 10 mg daily. REVIEW OF SYSTEMS: RESPIRATORY SYSTEM': She has no recent wheezing. She has history of chronic obstructive lung disease and prior history of long-standing smoking, which she stopped. GI SYSTEM; She has no recent nausea or vomiting. She had the anemia as noted. SYSTEM: No dysuria or hematuria. NERVOUS SYSTEM: No stroke or seizure. PHYSICAL EXAMINATION: She is an 89-year-old female, alert, oriented, in mild discomfort. Blood pressure running in the 140s with the heart rate in the 90s. She was in atrial fibrillation last night with a heart rate in the 110s to 150s, back in sinus mechanism at this time. HEAD: Normocephalic. EYES: Sclerae nonicteric. NECK: With musculoskeletal reproducible chest discomfort. LUNGS: With decreased air exchange, no wheezes. HEART: Regular rate and rhythm, S1, S2. No S3 with systolic murmur, no diastolic murmur, no rub. ABDOMEN: Soft, nontender, positive bowel sounds, no organomegaly. EXTREMITIES: No edema. LAB DATA: Revealed a hemoglobin of 7.8, white blood cells 13.8, platelet count 228, BUN and creatinine 19 and 1.13 which is better than admission. Her potassium 4.3. Her EKG on admission revealed a sinus mechanism, normal axis and nonspecific ST-T wave changes. Her chest x-ray on presentation revealed no evidence of infiltrate. IMPRESSION: 1. Paroxysmal atrial fibrillation, back in sinus mechanism, anticoagulated and the patient with known history of paroxysmal atrial fibrillation. 2. Chest discomfort consistent with chest wall tenderness. No evidence to suggest angina pectoris. 3. Recent acute anemia, stabilizing. 4. Dehydration, resolved. 5. History of coronary artery disease status post coronary artery bypass grafting. 6. Status post carotid endarterectomy. 7. Diabetes. 8. Hypertension. 9. Hyperlipidemia. RECOMMENDATION: From the cardiac standpoint, I will continue present therapy. I do not believe that the chest discomfort is anginal in pattern. Will continue on the anticoagulation and depending on her progress, further recommendation will be made. Thank you for this consult. Will follow with you. SHERYL / LISSETT: [id number] /
--- NOTE | 2020-03-08 14:18 | P.PN ---
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 Patient presented yesterday to [facility] emergency center due to concerns for worsening vertigo that is aware she's ever had. She did not have any falls at home. She utilizes a walker for ambulation. She denies having any headache, lateral weakness, numbness or tingling, no chest pain or shortness of breath. She's had no nausea, vomiting or diarrhea. She is complaining of soreness in her mouth including lesions on her lips. Patient was found to be afebrile, heart rate 85, blood pressure 180/56 and pulse ox 97% on room air. EKG was in normal sinus rhythm with no acute ST changes. Chest x-ray revealed cardiomegaly correlate for COPD. Patient was found to have a potassium of 6.0 and she is status post calcium chloride, insulin and D50. Hemoglobin of 8, WBC 11.9. Sodium 138, Chloride 110, CO2 20, BUN 46 and creatinine 1.51, blood sugar 202. Lactic acid 0.9, troponin negative. Urinalysis clear with nitrate and leukoesterase negative. Xarelto has been placed on hold. Patient admitted to the [facility] floor and consult requested with GI.. 03/04: Patient is sitting up in bed in no apparent distress she is complaining of increased burning sensation in her throat as well as pain in her lips, she was seen earlier by gastroenterology was recommended for the patient to go for EGD and colonoscopy as she is anemic with microcytosis, her hemoglobin did drop to 7.3 she will be given iron infusion today and possibly tomorrow, she will need to be scheduled for EGD and colonoscopy for further evaluation of chronic blood loss. 03/05: Patient is sitting up in bed that she is feeling a lot better than earlier in the morning when she developed to have a significant swelling of her lips and her tongue thought to be due to anaphylactic reaction with a questionable reaction to the IV iron and dextran, patient did receive Solu-Medrol 125 mg IV push 1, she is pain a lot better today she denies any sore throat she denies any difficulty swallowing she denies any shortness breath, she has no chest pain at this time, she has no abdominal pain, she was seen earlier by gastroe nterology and she is scheduled to go for EGD and colonoscopy tomorrow morning. 03/06: Patient is nothing by mouth this morning and she is scheduled for EGD and colonoscopy today with Dr. Hackett. Hemoglobin is morning is 7.0, BUN 21 and creatinine 1.08. Patient has been hemodynamically stable, afebrile, pulse ox 96% on room air. Discharge plan is to return home with family. 03/07: Yesterday, patient underwent EGD with Dr. Hackett which revealed widely patent Schatzki's ring, otherwise normal upper endoscopy evaluation. Colonoscopy revealed scattered diverticulosis with no active bleeding, AVM treated with argon plasma coagulation in the cecum. Patient was cleared for diet, plan to hold anticoagulation for additional 48 hours but otherwise was cleared for discharge by GI. One dose of IV Lasix given this morning. Chest x- ray reveals new infiltrate left lower lobe with small effusion and patient started on IV Levaquin and nebulizer treatments. Patient has been afebrile, heart rate 104, blood pressure 194/66 and pulse ox 92% on 2 L nasal cannula. Repeat blood work reveals hemoglobin 7.8, WBC 13.8, platelet count 228. BUN 19 creatinine 1.13. Blood sugars running between 86 and 188. Anticipate probable discharge tomorrow. 03/08: Patient has been afebrile, heart rate 99, blood pressure 141/63, pulse ox 92% on 4 L nasal cannula. Patient does not have home O2 but will be assessed prior to discharge. Last evening, patient developed A. fib with RVR leading up to 150s and was transferred to the selective care unit. Heart rate has been running in the 90s this morning. Patient complains of episode of chest pain for which [employer] [place] helped. She is stating that the pain is back. It is in the middle of her chest. No radiation. She is noted to have a cough. We will add Zosyn and consult for pulmonary medicine for evaluation of pneumonia. Patient does not have much appetite states she normally does not eat very much besides protein drinks. Glucerna will be added. Patient urinated sufficiently following IV Lasix yesterday. Patient has been started back on Xarelto last evening. PT OT is following the patient and recommended home care. Objective - Vital Signs Vital signs: Vital Signs Temp 98.2 F 03/08/20 04:00 Pulse 96 03/08/20 08:36 Resp 20 03/08/20 04:00 BP 141/63 03/08/20 04:00 Pulse Ox 92 L 03/08/20 04:00 Intake & Output 03/07/20 03/08/20 03/08/20 18:59 06:59 18:59 Intake Total 11.083 Output Total 0 0 Balance 0 11.083 Weight 53.5 kg Intake: Intake, IV Titration 11.083 Amount Diltiazem 125 mg In 11.083 Sodium Chloride 0.9% 100 ml @ 5 MG/HR 5 mls/hr IV .Q24H [facility] Rx#:[id number] Output: Urine 0 Stool 0 Other: Voiding Method Toilet Diaper # Voids 1 - Exam Review of Systems Constitutional: Reports fatigue weakness, Denies anorexia, Denies chills, Denies fever, Denies lethargy, Denies poor appetite Eyes: denies blurred vision, denies pain Ears, nose, mouth and throat: Reports mouth pain, Reports vertigo, Denies dysphagia, Denies headache, Denies sore throat Cardiovascular: reports chest pain, Denies decreased exercise tolerance, Denies dyspnea on exertion, Denies edema, Denies leg edema, Denies lightheadedness, Denies shortness of breath, Denies syncope Respiratory: Denies cough, Denies cough with sputum, Denies dyspnea, Denies excessive sputum, Denies hemoptysis, Denies home oxygen, Denies respiratory infections Gastrointestinal: Denies abdominal pain, Denies BRBPR, Denies diarrhea, Denies hematemesis, Denies hematochezia, Denies melena, Denies nausea, Denies vomiting Genitourinary: Denies dysuria, Denies hematuria, Denies urgency, Denies urinary frequency Menstruation: Reports postmenopausal Musculoskeletal: Reports gait dysfunction, Reports muscle weakness, Denies frequent falls, Denies myalgias Integumentary: Denies pruritus, Denies rash, Denies wounds Neurological: Reports vertigo, Denies change in mentation, Denies change in speech, Denies seizures, Denies syncope Psychiatric: Denies anxiety, Denies depression Endocrine: Denies fatigue, Denies weight change Physical examination HEENT: Head is atraumatic, normocephalic, pupils were equal round reactive to light and accommodations, extraocular muscle movement were intact. Oral mucous membranes are dry. Neck: Supple, no JVP, decreased carotid upstroke bilaterally. Chest: Diminished bilateral bases, no wheezes, no chest wall tenderness, no intercostal retractions. Heart: First heart sound is normal, second heart sound is normal, regular, no murmur. alarm security or surveillance monitor atrial fibrillation, rate controlled. Abdomen: Soft, nontender, nondistended, positive bowel sounds. No abdominal tenderness. Extremities: No pedal edema bilaterally, dorsalis pedis palpable bilaterally. No calf tenderness. Neurologic examination: Patient is awake and alert and oriented 3. No focal neuro deficits. Cranial nerves III-12 appear grossly intact. - Labs CBC & Chem 7: 03/07/20 07:03 03/07/20 07:03 Labs: Abnormal Lab Results - Last 24 Hours (Table) 03/07/20 03/07/20 03/07/20 Range/Units 12:07 16:59 20:22 POC Glucose (mg/dL) 188 H 155 H 183 H (75-99) mg/dL Assessment and Plan Plan: Assessment and Plan Plan: 1. Anaphylactic reaction possibly due to IV iron dextran. Resolved. 2. Acute kidney injury with hyperkalemia. Appears to be better today monitor the patient labs. 3. Acute blood loss anemia anemia secondary to acute GI bleed due to AVM at cecum. Patient has history of AVM. Patient is status post EGD and colonoscopy and argon plasma treatment for AVM. Xarelto is on hold for another 24 hours. 4. Paroxysmal atrial fibrillation, chronically on Xarelto. 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 5. Possible gram-negative left lower lobe pneumonia. Patient started on Levaquin and DuoNeb treatments 4 times daily scheduled. Add Zosyn and consult with pulmonary medicine. 6. History of coronary artery disease status post three-vessel CABG in 1995. 7. Carotid artery disease status post carotid endarterectomy, stable. 8. Diabetes mellitus type 2, insulin requiring. Continue Levemir 14 units at bedtime and NovoLog scale before meals and at bedtime, Tradjenta 5 mg daily. 9. Hypertension, hypertensive cardiovascular disease. Continue Norvasc 5 mg daily, lisinopril 10 mg at bedtime. 10. Hyperlipidemia. Continue Lipitor 10 mg daily. 11. Chronic vertigo. Continue Antivert 12.5 mg twice daily as needed. 12. Gastroesophageal reflux disease. Continue Protonix 40 mg daily. 13. Chronic idiopathic constipation. Hold Amitiza for now. 14. COVID-19 infection not present. 15. No code. 16. Physical therapy evaluation. 17. Plan is to go back home without home care.
[2020-03-08] MEDS: CHLORHEXIDINE GLUCONATE 15 ML CUP MUCOUS MEM SCH ×2 (15:14→16:40)
--- NOTE | 2020-03-08 15:19 | XR ---
EXAMINATION TYPE: XR chest 1V portable DATE OF EXAM: 03/08/2020 Comparison: 03/07/2020 Clinical History: 89-year-old female shortness of breath, dyspnea, pneumonia Findings: Median sternotomy wires are present with post-CABG clips the mediastinum. Dense atherosclerotic calci fications throughout the aorta. Heart borderline enlarged. Small bilateral pleural effusions with pat kelin bibasilar opacities, increased slightly from prior exam. Interstitial densities slightly increase d. Impression: Increasing small pleural effusions with underlying atelectasis and/or consolidation. Interstitial den sity also slightly increased. Correlate to exclude CHF as an etiology.
[2020-03-08] MEDS ORDERED: FUROSEMIDE 10 MG/ML 4 ML VIAL IV STA (15:22)
[2020-03-08 15:27] LABS: Anisocytosis Moderate; HCT 25.8 % (34.0-46.0); HGB 7.3 gm/dL (11.4-16.0); Hypochromasia Marked; MCH 21.1 pg (25.0-35.0); MCHC 28.3 g/dL (31.0-37.0); MCV 74.4 fL (80.0-100.0); Mean Platelet Volume 7.2; Microcytosis Moderate; Platelet Count 214 k/uL (150-450); Poikilocytosis Slight; RBC 3.47 m/uL (3.80-5.40); RDW 21.4 % (11.5-15.5); WBC 11.6 k/uL (3.8-10.6)
[2020-03-08 15:50] LABS: Calcium 8.3 mg/dL (8.4-10.2); Potassium 4.4 mmol/L (3.5-5.1)
--- NOTE | 2020-03-08 16:13 | P.CNPUL ---
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 Patient was diagnosed with acute kidney injury, dehydration, hyperkalemia. She was acutely anemic a hemoglobin of 8.0, her Xarelto was placed on hold, patient had a GI evaluation. Patient underwent's upper endoscopy with findings of a widely patent Schatzki's ring and colonoscopy with findings of a cecal AVM, treated with argon plasma coagulation therapy. Scattered diverticulosis with no active bleeding was noted. Patient was cleared for diet, with the plan to hold anticoagulation for additional 48 hours. Chest x-ray this morning showed a new infiltrate at the left lower lobe with small pleural effusion and patient was started on Zosyn and Levaquin and nebulized treatments. This morning patient was having increased dyspnea and complaints of chest pain, cardiology consultation was obtained. This afternoon we were consulted for worsening hypoxemia, patient was up to the bathroom, she was desaturating on 2 L/m into the 70s, and had to be placed on 100% nonrebreather, quite dyspneic, stat chest x-ray was obtained showing worsening chest x-ray findings with bilateral basal densities, small bilateral pleural effusions, and increased interstitial densities likely related to CHF. Earlier today patient received a dose of IV Lasix. She is already covered with antibiotics. No new labs today, we'll obtain a stat of stat CBC and BMP, pro-calcitonin level. And we were asked to see the patient consultation for worsening dyspnea and hypoxemia and new pulmonary infiltrates on the chest x-ray Review of Systems All systems: negative Constitutional: Denies chills, Denies fever Eyes: denies blurred vision, denies pain Ears, nose, mouth and throat: Denies headache, Denies sore throat Cardiovascular: Denies chest pain, Denies shortness of breath Respiratory: Reports dyspnea, Denies cough Gastrointestinal: Denies abdominal pain, Denies diarrhea, Denies nausea, Denies vomiting Genitourinary: Denies dysuria, Denies hematuria Musculoskeletal: Denies myalgias Integumentary: Denies pruritus, Denies rash Neurological: Denies numbness, Denies weakness Psychiatric: Denies anxiety, Denies depression Endocrine: Denies fatigue, Denies weight change Past Medical History Past Medical History: Coronary Artery Disease (CAD), Chest Pain / Angina, Diabetes Mellitus, Hyperlipidemia, Hypertension, Myocardial Infarction ([place]), Syncope Additional Past Medical History / Comment(s): NIDDM type II, vertigo/weakness past 5 years and pt states she has had tests but no one knows why, weakness, gait disturbance, falls, bilateral cataracts, dehydration Last Myocardial Infarction Date:: 1995 History of Any Multi-Drug Resistant Organisms: None Reported Past Surgical History: Adenoidectomy, Coronary Bypass/CABG, Heart Catheterization, Orthopedic Surgery, Tonsillectomy Additional Past Surgical History / Comment(s): 3 vessel CABG 1995 in [place], carotid endartectomy 2015, ORIF L ankle d/t fracture. Past Anesthesia/Blood Transfusion Reactions: No Reported Reaction Past Psychological History: No Psychological Hx Reported Additional Psychological History / Comment(s): Pt resides alone in an apartment with her daughter living down the hallway. She has a walker. She no longer drives, her son takes her to appointments. Smoking Status: Former smoker Past Alcohol Use History: None Reported Additional Past Alcohol Use History / Comment(s): Patient smoked one pack per day for 60 years or more and quit in 2016. She denies any alcohol use, marijuana or street drug use. Past Drug Use History: None Reported Additional Drug Use History / Comment(s): Patient smoked for 60+ years. Quit in 2015 - Past Family History Mother Family Medical History: No Reported History Additional Family Medical History / Comment(s): Mother at age 82 from old age. Father Family Medical History: No Reported History Additional Family Medical History / Comment(s): Father from old age and patient does not recall his age or any medical problems. Son(s) Family Medical History: Cancer Additional Family Medical History / Comment(s): Patient has one son with history of throat cancer in remission. Patient has one daughter with no major medical problems. Patient does not have any brothers or sisters. Medications and Allergies Home Medications Medication Instructions Recorded Confirmed Type Cholecalciferol [Vitamin D3 (25 2,000 unit PO DAILY 09/24/15 03/02/20 History Mcg = 1000 Iu)] Linagliptin [Tradjenta] 5 mg PO DAILY 06/18/18 03/02/20 History Rivaroxaban [Xarelto] 15 mg PO DAILY 06/18/18 03/02/20 History Simvastatin [Zocor] 20 mg PO DAILY 06/18/18 03/02/20 History amLODIPine [Norvasc] 5 mg PO DAILY 06/18/18 03/02/20 History Lisinopril [Zestril] 10 mg PO HS #30 tab 09/12/18 03/02/20 Rx Hydrocodone/Acetaminophen [[place] 1 tab PO TID 03/02/20 03/02/20 History 5-325] Insulin Detemir [Levemir Flextouch] 14 units SQ HS 03/02/20 03/02/20 History Insulin Lispro [humaLOG Kwikpen] See Protocol SQ TID 03/02/20 03/02/20 History Lubiprostone [Amitiza] 24 mcg PO BID 03/02/20 03/02/20 History Pantoprazole [Protonix] 40 mg PO DAILY 03/02/20 03/02/20 History Allergies Allergy/AdvReac Type Severity Reaction Status Date / Time [facility] AdvReac Hallucinati Verified 03/02/20 15:04 ons Physical Exam Vitals: Vital Signs Temp Pulse Pulse Resp BP BP Pulse Ox 03/08/20 12:30 96 03/08/20 12:20 96 03/08/20 12:00 98.1 F 94 20 152/69 03/08/20 08:36 96 03/08/20 08:21 96 03/08/20 08:00 98.8 F 98 20 127/58 93 L 03/08/20 04:00 98.2 F 99 20 141/63 92 L 03/08/20 00:00 98.7 F 152 H 18 94/52 92 L 03/07/20 21:50 124 H 93 L 03/07/20 21:45 142 H 87 L 03/07/20 21:07 99.2 F 116 H 20 130/49 93 L 03/07/20 20:43 100 03/07/20 20:28 98 03/07/20 19:15 99.0 F 126 H 16 143/65 91 L 03/07/20 16:24 100 03/07/20 16:11 98 94 L Intake and Output 03/08/20 03/08/20 03/08/20 06:59 14:59 22:59 Intake Total 11.083 237 Output Total 0 0 Balance 11.083 237 Intake: Intake, IV Titration 11.083 Amount Diltiazem 125 mg In 11.083 Sodium Chloride 0.9% 100 ml @ 5 MG/HR 5 mls/hr IV .Q24H [facility] [place] Rx#:[id number] Oral 237 Output: Urine 0 Stool 0 Other: Voiding Method Toilet Diaper # Voids 1 Weight 53.5 kg GENERAL EXAM: Alert, very pleasant, 89-year-old white female, currently on 100% nonrebreather comfortable in no apparent distress. HEAD: Normocephalic/atraumatic. EYES: Normal reaction of pupils, equal size. Conjunctiva pink, sclera white. NOSE: Clear with pink turbinates. THROAT: No erythema or exudates. NECK: No masses, no JVD, no thyroid enlargement, no adenopathy. CHEST: No chest wall deformity. Symmetrical expansion. Healed sternotomy incision clean dry and intact LUNGS: Equal air entry with diminished breath sounds bilaterally, bilateral lower lobe inspiratory crackles CVS: Irregular rate and rhythm, normal S1 and S2, no gallops, soft diastolic murmur loudest at the left sternal border midclavicular line, no rubs ABDOMEN: Soft, nontender. No hepatosplenomegaly, normal bowel sounds, no guarding or rigidity. EXTREMITIES: No clubbing, no edema, no cyanosis, 2+ pulses and upper and lower extremities. MUSCULOSKELETAL: Muscle strength and tone normal. SPINE: No scoliosis or deformity SKIN: No rashes CENTRAL NERVOUS SYSTEM: Alert and oriented -3. No focal deficits, tone is normal in all 4 extremities. PSYCHIATRIC: Alert and oriented -3. Appropriate affect. Intact judgment and insight. Results - Laboratory Findings CBC and BMP: 03/08/20 15:14 03/08/20 15:14 PT/INR, D-dimer PT 10.1 sec (9.0-12.0) 03/02/20 13:30 INR 1.0 (<1.2) 03/02/20 13:30 Abnormal lab findings: Abnormal Labs 03/02/20 03/02/20 03/02/20 13:27 13:30 13:30 WBC 11.9 H RBC 3.77 L Hgb 8.0 L Hct 27.8 L MCV 73.8 L MCH 21.2 L MCHC 28.7 L RDW 18.0 H Neutrophils # 10.4 H Lymphocytes # 0.6 L Potassium 6.0 H Chloride 110 H Carbon Dioxide 20 L BUN 46 H Creatinine 1.51 H Glucose 202 H POC Glucose (mg/dL) 211 H Calcium Alkaline Phosphatase 36 L Total Protein Albumin Urine Protein Urine Bacteria Hyaline Casts Urine Mucus 03/02/20 03/02/20 03/03/20 15:18 20:29 07:21 WBC RBC Hgb Hct MCV MCH MCHC RDW Neutrophils # Lymphocytes # Potassium Chloride Carbon Dioxide BUN Creatinine Glucose POC Glucose (mg/dL) 160 H 115 H Calcium Alkaline Phosphatase Total Protein Albumin Urine Protein 1+ H Urine Bacteria Rare H Hyaline Casts 4 H Urine Mucus Rare H 03/03/20 03/03/20 03/03/20 08:55 08:55 11:19 WBC RBC Hgb 7.8 L Hct 27.9 L MCV 73.5 L MCH 20.6 L MCHC 28.0 L RDW 18.4 H Neutrophils # 8.3 H Lymphocytes # 0.9 L Potassium Chloride 114 H Carbon Dioxide 20 L BUN 31 H Creatinine 1.26 H Glucose 116 H POC Glucose (mg/dL) 107 H Calcium Alkaline Phosphatase 34 L Total Protein 6.2 L Albumin 3.4 L Urine Protein Urine Bacteria Hyaline Casts Urine Mucus 03/03/20 03/03/20 03/04/20 16:36 20:17 05:54 WBC RBC 3.39 L Hgb 7.3 L Hct 25.8 L MCV 76.3 L MCH 21.4 L MCHC 28.1 L RDW 18.2 H Neutrophils # Lymphocytes # Potassium Chloride Carbon Dioxide BUN Creatinine Glucose POC Glucose (mg/dL) 152 H 128 H Calcium Alkaline Phosphatase Total Protein Albumin Urine Protein Urine Bacteria Hyaline Casts Urine Mucus 03/04/20 03/04/20 03/04/20 05:54 11:37 16:49 WBC RBC Hgb Hct MCV MCH MCHC RDW Neutrophils # Lymphocytes # Potassium 5.2 H Chloride 116 H Carbon Dioxide 21 L BUN 23 H Creatinine 1.12 H Glucose POC Glucose (mg/dL) 181 H 134 H Calcium Alkaline Phosphatase Total Protein Albumin Urine Protein Urine Bacteria Hyaline Casts Urine Mucus 03/04/20 03/05/20 03/05/20 19:59 07:02 07:02 WBC RBC 3.62 L Hgb 7.4 L Hct 26.7 L MCV 73.6 L MCH 20.5 L MCHC 27.8 L RDW 18.7 H Neutrophils # Lymphocytes # Potassium Chloride 115 H Carbon Dioxide 21 L BUN Creatinine Glucose POC Glucose (mg/dL) 149 H Calcium Alkaline Phosphatase 36 L Total Protein 5.7 L Albumin 3.1 L Urine Protein Urine Bacteria Hyaline Casts Urine Mucus 03/05/20 03/05/20 03/05/20 07:22 11:23 17:03 WBC RBC Hgb Hct MCV MCH MCHC RDW Neutrophils # Lymphocytes # Potassium Chloride Carbon Dioxide BUN Creatinine Glucose POC Glucose (mg/dL) 119 H 202 H 223 H Calcium Alkaline Phosphatase Total Protein Albumin Urine Protein Urine Bacteria Hyaline Casts Urine Mucus 03/05/20 03/06/20 03/06/20 20:17 07:24 07:24 WBC RBC 3.41 L Hgb 7.0 L Hct 25.0 L MCV 73.2 L MCH 20.6 L MCHC 28.1 L RDW 19.3 H Neutrophils # 7.8 H Lymphocytes # Potassium Chloride 113 H Carbon Dioxide BUN 21 H Creatinine 1.08 H Glucose POC Glucose (mg/dL) 163 H Calcium 8.2 L Alkaline Phosphatase Total Protein Albumin Urine Protein Urine Bacteria Hyaline Casts Urine Mucus 03/06/20 03/06/20 03/07/20 16:24 20:06 07:03 WBC 13.8 H RBC 3.71 L Hgb 7.8 L Hct 27.5 L MCV 74.3 L MCH 20.9 L MCHC 28.2 L RDW 19.7 H Neutrophils # 11.5 H Lymphocytes # Potassium Chloride Carbon Dioxide BUN Creatinine Glucose POC Glucose (mg/dL) 275 H 112 H Calcium Alkaline Phosphatase Total Protein Albumin Urine Protein Urine Bacteria Hyaline Casts Urine Mucus 03/07/20 03/07/20 03/07/20 07:03 12:07 16:59 WBC RBC Hgb Hct MCV MCH MCHC RDW Neutrophils # Lymphocytes # Potassium Chloride 116 H Carbon Dioxide 21 L BUN 19 H Creatinine 1.13 H Glucose POC Glucose (mg/dL) 188 H 155 H Calcium 8.2 L Alkaline Phosphatase Total Protein 5.9 L Albumin 3.1 L Urine Protein Urine Bacteria Hyaline Casts Urine Mucus 03/07/20 03/08/20 20:22 11:34 WBC RBC Hgb Hct MCV MCH MCHC RDW Neutrophils # Lymphocytes # Potassium Chloride Carbon Dioxide BUN Creatinine Glucose POC Glucose (mg/dL) 183 H 135 H Calcium Alkaline Phosphatase Total Protein Albumin Urine Protein Urine Bacteria Hyaline Casts Urine Mucus - Diagnostic Findings Chest x-ray: report reviewed, image reviewed Assessment and Plan Plan: Assessment: #1. Acute hypoxic respiratory failure, today's chest x-ray showing new left basal density on this morning's chest x-ray and bibasilar densities, small pleural effusions, and interstitial infiltrates related to fluid overload, possibly exacerbation of CHF with previously documented mildly impaired ventricular systolic function and EF of 45-50%. Possibility of pneumonia is not excluded, and empiric antibiotic coverage includes Levaquin and Zosyn #2. Acute blood loss anemia related to acute GI bleeding secondary to AVM at cecum. Xarelto on hold #3. AVM at cecum, status post EGD and colonoscopy, and treatment with argon plasma coagulation therapy. #4. Acute kidney injury #5. Paroxysmal atrial fibrillation on Xarelto on an outpatient basis, which is currently on hold #6. Hypertension #7. Hyperlipidemia #8. Carotid artery disease status post endarterectomy #9. Coronary artery disease with previous bypass grafting #10. Diabetes mellitus type 2 #11. Chronic vertigo #12. Ex-smoker, carries [id number] smoking history #13. Plan: Chest x-ray has been reviewed showing new bilateral pulmonary infiltrates, pulmonary vascular congestion, possibly related to fluid overload, patient has received a dose of Lasix this morning, we will give additional dose of IV Lasix 40 mg 1 now, will obtain stat CBC and BMP, we will add Procalcitonin level and proBNP level. May place on BiPAP support with pressures of 10 and 5 and FiO2 of 100% and wean FiO2 to keep O2 sat at 92% or better. Currently on 100% FiO2. Nonrebreather mask, seems to be tolerating well, no acute distress, no tachypnea, we will leave the patient on nonrebreather mask, wean FiO2, and use BiPAP as needed. Continue current antibiotics, and bronchodilators. Repeat chest x-ray in the morning, obtain echocardiogram. CODE STATUS has been clarified and patient made it clear that she wants no aggressive resuscitation, no CPR, no defibrillation, no life support, we'll continue supportive care. We'll continue to follow I performed a history & physical examination of the patient and discussed their management with my nurse practitioner, Michelle Driscoll. I reviewed the nurse practitioner's note and agree with the documented findings and plan of care. Lung sounds are positive for diffuse wheezes throughout the lung brar. The findings and the impression was discussed with the patient. I attest to the documentation by the nurse practitioner. Time with Patient: Greater than 30
[2020-03-08 16:28] LABS: Glucose,Whole Blood 159 mg/dL (75-99)
[2020-03-08] MEDS: PIPERACILLIN-TAZOBACTAM 3.375 GM in SODIUM CHLORIDE 0.9% 100 ML IVPB SCH (17:02)
[2020-03-08 20:20] LABS: Glucose,Whole Blood 217 mg/dL (75-99)
[2020-03-08] MEDS: INSULIN DETEMIR (LEVEMIR) 100 UNIT/ML SYR SQ SCH (21:00)
[2020-03-08] MEDS: LISINOPRIL 10 MG TAB PO SCH (21:00)
[2020-03-08] MEDS: DILTIAZEM 125 MG in SODIUM CHLORIDE 0.9% 100 ML IV SCH (21:08)
[2020-03-09] MEDS: PIPERACILLIN-TAZOBACTAM 3.375 GM in SODIUM CHLORIDE 0.9% 100 ML IVPB SCH ×4 (00:03→23:17)
[2020-03-09] MEDS: DILTIAZEM 125 MG in SODIUM CHLORIDE 0.9% 100 ML IV SCH (01:23)
[2020-03-09] MEDS ORDERED: DILTIAZEM DRIP BOLUS FROM BAG 1 MG SOLN IV ONE (06:17)
[2020-03-09 06:23] LABS: Glucose,Whole Blood 125 mg/dL (75-99)
[2020-03-09] MEDS: PANTOPRAZOLE 40 MG TABLET PO SCH (06:30)
[2020-03-09] MEDS: INSULIN ASPART (NovoLOG) 100 UNIT/ML VIAL SQ SCH ×4 (06:31→21:27)
--- NOTE | 2020-03-09 07:24 | XR ---
EXAMINATION TYPE: XR chest 1V portable DATE OF EXAM: 03/09/2020 CLINICAL HISTORY: Difficulty breathing progress study. TECHNIQUE: Single AP portable upright view of the chest is obtained. COMPARISON: Chest x-ray from one day earlier and older studies. FINDINGS: Overlying sternal wires and mediastinal clips redemonstrated. Cardiac silhouette size is s table and upper limits of normal with atherosclerotic thoracic aorta. Background Chronic parenchymal change with central vascular congestion remains present. No new suspicious focal airspace opacity or pneumothorax seen bilaterally. Small to tiny bilateral pleural effusions are felt present. IMPRESSION: Suspect CHF exacerbation or fluid overload state with small tiny bilateral pleural effusi ons and associated bibasilar atelectasis and/or infiltrate. Background chronic changes noted. No sign ificant change from one day earlier.
[2020-03-09 07:37] LABS: Anisocytosis Moderate; HCT 26.8 % (34.0-46.0); HGB 7.7 gm/dL (11.4-16.0); Hypochromasia Marked; MCH 21.3 pg (25.0-35.0); MCHC 28.6 g/dL (31.0-37.0); MCV 74.3 fL (80.0-100.0); Mean Platelet Volume 8.2; Microcytosis Moderate; Platelet Count 241 k/uL (150-450); Poikilocytosis Slight; RBC 3.61 m/uL (3.80-5.40); RDW 21.9 % (11.5-15.5); WBC 13.1 k/uL (3.8-10.6)
[2020-03-09] MEDS: IPRATROPIUM-ALBUTEROL 3 ML NEB INHALATION SCH ×4 (07:56→19:07)
[2020-03-09 08:05] LABS: Calcium 8.4 mg/dL (8.4-10.2); Potassium 4.6 mmol/L (3.5-5.1)
[2020-03-09] MEDS ORDERED: LEVOFLOXACIN 500 MG TAB PO SCH (09:00)
[2020-03-09] MEDS ORDERED: METOPROLOL TARTRATE 25 MG TAB PO SCH (09:00)
[2020-03-09] MEDS: RIVAROXABAN 15 MG TAB PO SCH (09:16)
[2020-03-09] MEDS: ATORVASTATIN 10 MG TAB PO SCH (09:16)
[2020-03-09] MEDS: CHOLECALCIFEROL 1,000 UNIT TAB PO SCH (09:16)
[2020-03-09] MEDS: HYDROcodone/APAP 5-325MG 1 EACH TAB PO SCH ×3 (09:16→23:16)
[2020-03-09] MEDS: LINAGLIPTIN 5 MG TABLET PO SCH (09:16)
[2020-03-09] MEDS: amLODIPine 5 MG TAB PO SCH (09:16)
[2020-03-09] MEDS: CHLORHEXIDINE GLUCONATE 15 ML CUP MUCOUS MEM SCH ×2 (09:17→21:27)
[2020-03-09] MEDS: FUROSEMIDE 10 MG/ML 4 ML VIAL IV SCH ×2 (09:17→21:27)
[2020-03-09] MEDS ORDERED: METOPROLOL TARTRATE 25 MG TAB PO ONE (09:45)
--- NOTE | 2020-03-09 10:45 | ECHOF ---
Referral Reason:acute dyspnea, assess LV function MEASUREMENTS -------- HEIGHT: 157.5 cm WEIGHT: 51.7 kg BP: 140/69 RVIDd: 2.5 cm (< 3.3) IVSd: 1.3 cm (0.6 - 1.1) LVIDd: 4.3 cm (3.9 - 5.3) LVPWd: 1.3 cm (0.6 - 1.1) IVSs: 1.7 cm LVIDs: 3.5 cm LVPWs: 1.4 cm LA Diam: 3.3 cm (2.7 - 3.8) Ao Diam: 2.9 cm (2.0 - 3.7) AV Cusp: 1.1 cm (1.5 - 2.6) MV EXCURSION: 20.174 mm (> 18.000) MV EF SLOPE: 172 mm/s (70 - 150) EPSS: 0.8 cm AV maxP.21 mmHg AV meanP.43 mmHg RAP: 5.00 mmHg RVSP: 42.29 mmHg FINDINGS -------- This was a technically adequate study. The left ventricular size is normal. There is mild concentric left ventricular hypertrophy. Overa ll left ventricular systolic function is moderate-severely impaired with, an EF between 30 - 35 %. The right ventricle is normal in size. The left atrial size is normal. The right atrium is normal in size. Interatrial and interventricular septum intact. There is mild aortic valve sclerosis. There is mild aortic stenosis present. Peak/mean gradient a cross the Aortic Valve is 19.21mmHg / 9.43mmHg. The mitral valve leaflets are mildly thickened. Mild mitral annular calcification present. No leonid ral regurgitation. Mild tricuspid regurgitation present. There is mild pulmonary hypertension. The right ventricular systolic pressure, as measured by Doppler, is 42.29mmHg. Trace/mild (physiologic) pulmonic regurgitation. The aortic root size is normal. Normal inferior vena cava with normal inspiratory collapse consistent with estimated right atrial pre ssure of 5 mmHg. There is no pericardial effusion. CONCLUSIONS -------- 1. This was a technically adequate study. 2. The left ventricular size is normal. 3. There is mild concentric left ventricular hypertrophy. 4. Overall left ventricular systolic function is moderate-severely impaired with, an EF between 30 - 35 %. 5. The right ventricle is normal in size. 6. The left atrial size is normal. 7. The right atrium is normal in size. 8. Interatrial and interventricular septum intact. 9. There is mild aortic valve sclerosis. 10. There is mild aortic stenosis present. 11. Peak/mean gradient across the Aortic Valve is 19.21mmHg / 9.43mmHg. 12. The mitral valve leaflets are mildly thickened. 13. Mild mitral annular calcification present. 14. No mitral regurgitation. 15. Mild tricuspid regurgitation present. 16. There is mild pulmonary hypertension. 17. The right ventricular systolic pressure, as measured by Doppler, is 42.29mmHg. 18. Trace/mild (physiologic) pulmonic regurgitation. 19. The aortic root size is normal. 20. Normal inferior vena cava with normal inspiratory collapse consistent with estimated right atrial pressure of 5 mmHg. 21. There is no pericardial effusion. AUDIOVISUAL LEAD TECHNICIAN: Kaleigh Vera RDCS
[2020-03-09 11:17] VITALS: BMI 20.9
[2020-03-09] MEDS ORDERED: FUROSEMIDE 10 MG/ML 4 ML VIAL IV STA (11:20)
--- NOTE | 2020-03-09 11:25 | P.PN ---
Subjective Progress Note Date: 03/09/20 Principal diagnosis: Acute hypoxic respiratory failure The patient is seen today 03/09/2020 in follow-up on the selective care unit. She is currently awake and alert. No acute distress. She is not feeling as well today compared to yesterday however. She did refuse to wear her BiPAP last night. She's currently on a nonrebreather mask at 15 L with the O2 saturation in the low 90s. She's been afebrile. She is tachycardic with paroxysmal atrial fibrillation. Echocardiogram reveals moderate to severe impaired left ventricular systolic function with ejection fraction 30-35%. Troponin 0.595. White count 13.1. Hemoglobin 7.7. Sodium 139. Potassium 4.6. Creatinine 1 .48. She is currently on a Cardizem drip at 7.5 mg per hour. Remains on IV Lasix. Antibiotics in the form of Zosyn. Anticoagulated with Xarelto. Objective - Vital Signs Vital signs: Vital Signs Temp 98.3 F 03/09/20 08:00 Pulse 160 H 03/09/20 08:00 Resp 20 03/09/20 08:00 BP 117/61 03/09/20 08:00 Pulse Ox 91 L 03/09/20 08:00 Intake & Output 03/08/20 03/09/20 03/09/20 18:59 06:59 18:59 Intake Total 711 25.917 Output Total 0 0 Balance 711 25.917 0 Weight 52 kg Intake: Intake, IV Titration 25.917 Amount Diltiazem 125 mg In 25.917 Sodium Chloride 0.9% 100 ml @ 5 MG/HR 5 mls/hr IV .Q24H [facility] [place] Rx#:[id number] Oral 711 Output: Stool 0 0 Other: Voiding Method Toilet Bedpan Bedpan Diaper # Voids 1 1 - Exam GENERAL EXAM: Alert, pleasant 89-year-old female patient, on 15 L nonrebreather mask with O2 saturation 91%, fairly comfortable in no apparent distress. HEAD: Normocephalic. EYES: Normal reaction of pupils, equal size. NOSE: Clear with pink turbinates. THROAT: No erythema or exudates. NECK: No masses, no JVD. CHEST: No chest wall deformity. LUNGS: Equal air entry with crackles in the bilateral posterior bases. CVS: S1 and S2 normal with no audible murmur, regular rhythm. ABDOMEN: No hepatosplenomegaly, normal bowel sounds, no guarding or rigidity. SPINE: No scoliosis or deformity SKIN: No rashes CENTRAL NERVOUS SYSTEM: No focal deficits, tone is normal in all 4 extremities. EXTREMITIES: There is trace peripheral edema. No clubbing, no cyanosis. Peripheral pulses are intact. - Labs CBC & Chem 7: 03/09/20 06:36 03/09/20 06:36 Labs: Abnormal Lab Results - Last 24 Hours (Table) 03/08/20 03/08/20 03/08/20 Range/Units 11:34 15:14 15:14 WBC 11.6 H (3.8-10.6) k/uL RBC 3.47 L (3.80-5.40) m/uL Hgb 7.3 L (11.4-16.0) gm/dL Hct 25.8 L (34.0-46.0) % MCV 74.4 L (80.0-100.0) fL MCH 21.1 L (25.0-35.0) pg MCHC 28.3 L (31.0-37.0) g/dL RDW 21.4 H (11.5-15.5) % Chloride 109 H (98-107) mmol/L Carbon Dioxide 21 L (22-30) mmol/L BUN 20 H (7-17) mg/dL Creatinine 1.38 H (0.52-1.04) mg/dL Glucose 159 H (74-99) mg/dL POC Glucose (mg/dL) 135 H (75-99) mg/dL Calcium 8.3 L (8.4-10.2) mg/dL Troponin I (0.000-0.034) ng/mL 03/08/20 03/08/20 03/09/20 Range/Units 16:27 20:18 06:22 WBC (3.8-10.6) k/uL RBC (3.80-5.40) m/uL Hgb (11.4-16.0) gm/dL Hct (34.0-46.0) % MCV (80.0-100.0) fL MCH (25.0-35.0) pg MCHC (31.0-37.0) g/dL RDW (11.5-15.5) % Chloride (98-107) mmol/L Carbon Dioxide (22-30) mmol/L BUN (7-17) mg/dL Creatinine (0.52-1.04) mg/dL Glucose (74-99) mg/dL POC Glucose (mg/dL) 159 H 217 H 125 H (75-99) mg/dL Calcium (8.4-10.2) mg/dL Troponin I (0.000-0.034) ng/mL 03/09/20 03/09/20 03/09/20 Range/Units 06:36 06:36 06:36 WBC 13.1 H (3.8-10.6) k/uL RBC 3.61 L (3.80-5.40) m/uL Hgb 7.7 L (11.4-16.0) gm/dL Hct 26.8 L (34.0-46.0) % MCV 74.3 L (80.0-100.0) fL MCH 21.3 L (25.0-35.0) pg MCHC 28.6 L (31.0-37.0) g/dL RDW 21.9 H (11.5-15.5) % Chloride 109 H (98-107) mmol/L Carbon Dioxide (22-30) mmol/L BUN 25 H (7-17) mg/dL Creatinine 1.48 H (0.52-1.04) mg/dL Glucose 109 H (74-99) mg/dL POC Glucose (mg/dL) (75-99) mg/dL Calcium (8.4-10.2) mg/dL Troponin I 0.595 H* (0.000-0.034) ng/mL Assessment and Plan Assessment: 1 Acute hypoxic respiratory failure secondary to an acute exacerbation of systolic congestive heart failure with worsening ejection fraction at 20-25% 2 Paroxysmal atrial fibrillation with rapid ventricular response, currently on a Cardizem drip at 7.5 mg an hour. Anticoagulated with Xarelto. 3 Acute blood loss anemia secondary to acute GI bleeding from AVM at cecum 4 AVM at cecum, status post EGD and colonoscopy, treated with argon plasma coagulation therapy 5 Acute kidney injury 6 Hypertension 7 Hyperlipidemia 8 Carotid artery disease status post endarterectomy 9 Coronary artery disease status post previous coronary bypass grafting 10 Diabetes mellitus, type II 11 Chronic vertigo 12 Previous 42-[id number]-[id number] smoking history Plan: The patient was seen and evaluated by Dr. Salas Chest x-ray and labs reviewed Echocardiogram revealed worsening left ventricular systolic function Check Troponin Remains on a Cardizem drip for AF with RVR Overall prognosis is guarded She is a DNR/DNI CODE STATUS Refusing to wear her BiPAP Continue 15 L nonrebreather mask Titrate down as tolerated Continue with the current treatment plan for now Family considering palliative/hospice care I, the cosigning physician, performed a history & physical examination of the patient. Lungs sounds bilateral crackles. Maintaining good O2 saturations in the 90s on 15 L nonrebreather mask I discussed the assessment and plan of care with my nurse practitioner, Trista Ramírez. I attest to the above note as dictated by her.
--- NOTE | 2020-03-09 13:04 | P.PN ---
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 Patient presented yesterday to [facility] emergency center due to concerns for worsening vertigo that is aware she's ever had. She did not have any falls at home. She utilizes a walker for ambulation. She denies having any headache, lateral weakness, numbness or tingling, no chest pain or shortness of breath. She's had no nausea, vomiting or diarrhea. She is complaining of soreness in her mouth including lesions on her lips. Patient was found to be afebrile, heart rate 85, blood pressure 180/56 and pulse ox 97% on room air. EKG was in normal sinus rhythm with no acute ST changes. Chest x-ray revealed cardiomegaly correlate for COPD. Patient was found to have a potassium of 6.0 and she is status post calcium chloride, insulin and D50. Hemoglobin of 8, WBC 11.9. Sodium 138, Chloride 110, CO2 20, BUN 46 and creatinine 1.51, blood sugar 202. Lactic acid 0.9, troponin negative. Urinalysis clear with nitrate and leukoesterase negative. Xarelto has been placed on hold. Patient admitted to the [facility] floor and consult requested with GI.. 03/04: Patient is sitting up in bed in no apparent distress she is complaining of increased burning sensation in her throat as well as pain in her lips, she was seen earlier by gastroenterology was recommended for the patient to go for EGD and colonoscopy as she is anemic with microcytosis, her hemoglobin did drop to 7.3 she will be given iron infusion today and possibly tomorrow, she will need to be scheduled for EGD and colonoscopy for further evaluation of chronic blood loss. 03/05: Patient is sitting up in bed that she is feeling a lot better than earlier in the morning when she developed to have a significant swelling of her lips and her tongue thought to be due to anaphylactic reaction with a questionable reaction to the IV iron and dextran, patient did receive Solu-Medrol 125 mg IV push 1, she is pain a lot better today she denies any sore throat she denies any difficulty swallowing she denies any shortness breath, she has no chest pain at this time, she has no abdominal pain, she was seen earlier by gastroe nterology and she is scheduled to go for EGD and colonoscopy tomorrow morning. 03/06: Patient is nothing by mouth this morning and she is scheduled for EGD and colonoscopy today with Dr. Hackett. Hemoglobin is morning is 7.0, BUN 21 and creatinine 1.08. Patient has been hemodynamically stable, afebrile, pulse ox 96% on room air. Discharge plan is to return home with family. 03/07: Yesterday, patient underwent EGD with Dr. Hackett which revealed widely patent Schatzki's ring, otherwise normal upper endoscopy evaluation. Colonoscopy revealed scattered diverticulosis with no active bleeding, AVM treated with argon plasma coagulation in the cecum. Patient was cleared for diet, plan to hold anticoagulation for additional 48 hours but otherwise was cleared for discharge by GI. One dose of IV Lasix given this morning. Chest x- ray reveals new infiltrate left lower lobe with small effusion and patient started on IV Levaquin and nebulizer treatments. Patient has been afebrile, heart rate 104, blood pressure 194/66 and pulse ox 92% on 2 L nasal cannula. Repeat blood work reveals hemoglobin 7.8, WBC 13.8, platelet count 228. BUN 19 creatinine 1.13. Blood sugars running between 86 and 188. Anticipate probable discharge tomorrow. 03/08: Patient has been afebrile, heart rate 99, blood pressure 141/63, pulse ox 92% on 4 L nasal cannula. Patient does not have home O2 but will be assessed prior to discharge. Last evening, patient developed A. fib with RVR leading up to 150s and was transferred to the selective care unit. Heart rate has been running in the 90s this morning. Patient complains of episode of chest pain for which [place] helped. She is stating that the pain is back. It is in the middle of her chest. No radiation. She is noted to have a cough. We will add Zosyn and consult for pulmonary medicine for evaluation of pneumonia. Patient does not have much appetite states she normally does not eat very much besides protein drinks. Glucerna will be added. Patient urinated sufficiently following IV Lasix yesterday. Patient has been started back on Xarelto last evening. PT OT is following the patient and recommended home care. 03/09: Yesterday afternoon, patient developed worsening respiratory failure requiring nonrebreather. She received 1 dose of IV Lasix in the afternoon. Patient states she urinated twice during the night. She is complaining of dizziness when she sits up. She continues to have shortness of breath. She denies any chest pain. Patient is currently pulse ox seen 93% on 15 L nonrebreather, heart rate is in the 160s. She was started on Cardizem drip yesterday afternoon for A. fib with RVR. Blood pressure 117/61, afebrile. Subsequently blood pressure was 80/45. Lasix has been ordered and metoprolol. Consult placed with [facility] for informational meeting and children will be here this afternoon for meeting. WBC 13.1, hemoglobin 7.7, platelet count 241. Sodium 139, potassium 4.6, chloride 109, CO2 23, BUN 25 and creatinine 1.48. Troponin 0.595. Blood sugars running between 109 and 217. Repeat chest x-ray reveals systolic heart failure fluid overload with small tiny bilateral pleural effusions and associated bibasilar atelectasis and new infiltrates. No significant change from earlier. Echocardiogram reveals EF of 30-35% with mild aortic stenosis, mild tricuspid regurgitation, mild pulmonary h ypertension. Objective - Vital Signs Vital signs: Vital Signs Temp 98.2 F 03/09/20 00:00 Pulse 160 H 03/09/20 04:00 Resp 18 03/09/20 04:00 BP 140/69 03/09/20 04:00 Pulse Ox 92 L 03/09/20 07:02 Intake & Output 03/08/20 03/09/20 03/09/20 18:59 06:59 18:59 Intake Total 711 25.917 Output Total 0 Balance 711 25.917 Weight 52 kg Intake: Intake, IV Titration 25.917 Amount Diltiazem 125 mg In 25.917 Sodium Chloride 0.9% 100 ml @ 5 MG/HR 5 mls/hr IV .Q24H [facility] Rx#:[id number] Oral 711 Output: Stool 0 Other: Voiding Method Toilet Bedpan Diaper # Voids 1 1 - Exam Review of Systems Constitutional: Reports fatigue weakness, reports anorexia, Denies chills, Denies fever, Denies lethargy, reports poor appetite Eyes: denies blurred vision, denies pain Ears, nose, mouth and throat: Denies mouth pain, Reports vertigo, Denies dysphagia, Denies headache, Denies sore throat Cardiovascular: reports chest pain, reports Denies decreased exercise tolerance, reports dyspnea on exertion, Denies edema, Denies leg edema, reports lightheadedness, Denies shortness of breath, Denies syncope Respiratory: Denies cough, Denies cough with sputum, reports dyspnea, Denies excessive sputum, Denies hemoptysis, Denies home oxygen, Denies respiratory in fections Gastrointestinal: Denies abdominal pain, Denies BRBPR, Denies diarrhea, Denies hematemesis, Denies hematochezia, Denies melena, Denies nausea, Denies vomiting Genitourinary: Denies dysuria, Denies hematuria, Denies urgency, Denies urinary frequency Menstruation: Reports postmenopausal Musculoskeletal: Reports gait dysfunction, Reports muscle weakness, Denies frequent falls, Denies myalgias Integumentary: Denies pruritus, Denies rash, Denies wounds Neurological: Reports vertigo, Denies change in mentation, Denies change in speech, Denies seizures, Denies syncope Psychiatric: Denies anxiety, Denies depression Endocrine: Denies fatigue, Denies weight change Physical examination GEN: This is an 89-year-old female. She is in bed with nonrebreather. Accessory muscle usage and moderate intercostal retractions. HEENT: Head is atraumatic, normocephalic, pupils were equal round reactive to light and accommodations, extraocular muscle movement were intact. Oral mucous membranes are dry. Neck: Supple, no JVP, decreased carotid upstroke bilaterally. Chest: Diminished bilateral bases, no wheezes, no chest wall tenderness, moderate intercostal retractions. Heart: First heart sound is normal, second heart sound is normal, regular, no murmur. youth nutritional monitor atrial fibrillation, RVR. Abdomen: Soft, nontender, nondistended, positive bowel sounds. No abdominal tenderness. Extremities: No pedal edema bilaterally, dorsalis pedis palpable bilaterally. No calf tenderness. Neurologic examination: Patient is awake and alert and oriented 3. No focal neuro deficits. Cranial nerves III-12 appear grossly intact. - Labs CBC & Chem 7: 03/09/20 06:36 03/09/20 06:36 Labs: Abnormal Lab Results - Last 24 Hours (Table) 03/08/20 03/08/20 03/08/20 Range/Units 11:34 15:14 15:14 WBC 11.6 H (3.8-10.6) k/uL RBC 3.47 L (3.80-5.40) m/uL Hgb 7.3 L (11.4-16.0) gm/dL Hct 25.8 L (34.0-46.0) % MCV 74.4 L (80.0-100.0) fL MCH 21.1 L (25.0-35.0) pg MCHC 28.3 L (31.0-37.0) g/dL RDW 21.4 H (11.5-15.5) % Chloride 109 H (98-107) mmol/L Carbon Dioxide 21 L (22-30) mmol/L BUN 20 H (7-17) mg/dL Creatinine 1.38 H (0.52-1.04) mg/dL Glucose 159 H (74-99) mg/dL POC Glucose (mg/dL) 135 H (75-99) mg/dL Calcium 8.3 L (8.4-10.2) mg/dL 03/08/20 03/08/20 03/09/20 Range/Units 16:27 20:18 06:22 WBC (3.8-10.6) k/uL RBC (3.80-5.40) m/uL Hgb (11.4-16.0) gm/dL Hct (34.0-46.0) % MCV (80.0-100.0) fL MCH (25.0-35.0) pg MCHC (31.0-37.0) g/dL RDW (11.5-15.5) % Chloride (98-107) mmol/L Carbon Dioxide (22-30) mmol/L BUN (7-17) mg/dL Creatinine (0.52-1.04) mg/dL Glucose (74-99) mg/dL POC Glucose (mg/dL) 159 H 217 H 125 H (75-99) mg/dL Calcium (8.4-10.2) mg/dL Assessment and Plan Plan: 1. Anaphylactic reaction possibly due to IV iron dextran. Resolved. 2. Acute kidney injury with hyperkalemia. Appears to be better today monitor the patient labs. 3. Acute blood loss anemia anemia secondary to acute GI bleed due to AVM at cecum. Patient has history of AVM. Patient is status post EGD and colonoscopy and argon plasma treatment for AVM. Xarelto is on hold for another 24 hours. 4. Paroxysmal atrial fibrillation, chronically on Xarelto. Xarelto was resumed. Patient is currently in RVR, Cardizem drip, metoprolol 25 mg 1 and Lopressor 50 mg twice daily added. 5. Possible gram-negative left lower lobe pneumonia. Continue Zosyn and Levaquin and DuoNeb treatments 4 times daily scheduled. Consult with pulmonary medicine appreciated. 6. Acute hypoxic respiratory failure secondary to left lower lobe pneumonia and acute diastolic heart failure. Lasix 40 mg IV every 12 hours, additional dose of Lasix given at 11 today. Continue nonrebreather. Patient is refusing BiPAP. 7. History of coronary artery disease status post three-vessel CABG in 1995. 8. Carotid artery disease status post carotid endarterectomy, stable. 9. Diabetes mellitus type 2, insulin requiring. Continue Levemir 14 units at bedtime and NovoLog scale before meals and at bedtime, Tradjenta 5 mg daily. 10. Hypertension, hypertensive cardiovascular disease. Continue Norvasc 5 mg daily, lisinopril 10 mg at bedtime. 11. Hyperlipidemia. Continue Lipitor 10 mg daily. 12. Chronic vertigo. Continue Antivert 12.5 mg twice daily as needed. 13. Gastroesophageal reflux disease. Continue Protonix 40 mg daily. 14. Chronic idiopathic constipation. Hold Amitiza for now. 15. COVID-19 infection not present. 16. No code. 17. Physical therapy evaluation. 18. Plan is to go back home without home care. Consult with [facility] for informational meeting today. Prognosis poor. Impression and plan of care have been directed as dictated by the signing physician. Nataliia Alejo nurse practitioner acting as scribe for signing physician.
--- NOTE | 2020-03-09 15:03 | P.PN ---
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 She was primarily admitted to the hospital on this occasion with symptoms of dizziness and vertigo.Patient was diagnosed with acute kidney injury, dehydration, hyperkalemia. She was acutely anemic a hemoglobin of 8.0, her Xarelto was placed on hold, patient had a GI evaluation. Patient underwent's upper endoscopy with findings of a widely patent Schatzki's ring and colonoscopy with findings of a cecal AVM, treated with argon plasma coagulation therapy. Scattered diverticulosis with no active bleeding was noted. Patient has been in and out of atrial fibrillation, this morning in A. fib with RVR. Patient is quite short of breath today, currently has a nonrebreather on. Echocardiogram with Doppler study revealed an ejection fraction of 30-35%. She continues to be on IV Lasix at this time, continues to be on IV Cardizem, we'll increase the dose of metoprolol today to 50 mg twice a day. Because of the cardiomyopathy are recommendation would be to discontinue the IV Cardizem and increase the beta bryan. Objective - Vital Signs Vital signs: Vital Signs Temp 98.3 F 03/09/20 08:00 Pulse 160 H 03/09/20 08:00 Resp 20 03/09/20 08:00 BP 117/61 03/09/20 08:00 Pulse Ox 91 L 03/09/20 08:00 Intake & Output 03/08/20 03/09/20 03/09/20 18:59 06:59 18:59 Intake Total 711 25.917 Output Total 0 0 Balance 711 25.917 0 Weight 52 kg 52 kg Intake: Intake, IV Titration 25.917 Amount Diltiazem 125 mg In 25.917 Sodium Chloride 0.9% 100 ml @ 5 MG/HR 5 mls/hr IV .Q24H [facility] Rx#:[id number] Oral 711 Output: Stool 0 0 Other: Voiding Method Toilet Bedpan Bedpan Diaper # Voids 1 1 - Exam GENERAL EXAM: Alert, pleasant 89-year-old female patient, on 15 L nonrebreather mask with O2 saturation 91%, fairly comfortable in no apparent distress. HEAD: Normocephalic. EYES: Normal reaction of pupils, equal size. NOSE: Clear with pink turbinates. THROAT: No erythema or exudates. NECK: No masses, no JVD. CHEST: No chest wall deformity. LUNGS: Equal air entry with crackles in the bilateral posterior bases. CVS: S1 and S2 normal with no audible murmur, regular rhythm. ABDOMEN: No hepatosplenomegaly, normal bowel sounds, no guarding or rigidity. SPINE: No scoliosis or deformity SKIN: No rashes CENTRAL NERVOUS SYSTEM: No focal deficits, tone is normal in all 4 extremities. EXTREMITIES: There is trace peripheral edema. No clubbing, no cyanosis. Peripheral pulses are intact. - Labs - Labs CBC & Chem 7: 03/09/20 06:36 03/09/20 06:36 Labs: Abnormal Lab Results - Last 24 Hours (Table) 03/08/20 03/08/20 03/08/20 Range/Units 15:14 15:14 16:27 WBC 11.6 H (3.8-10.6) k/uL RBC 3.47 L (3.80-5.40) m/uL Hgb 7.3 L (11.4-16.0) gm/dL Hct 25.8 L (34.0-46.0) % MCV 74.4 L (80.0-100.0) fL MCH 21.1 L (25.0-35.0) pg MCHC 28.3 L (31.0-37.0) g/dL RDW 21.4 H (11.5-15.5) % Chloride 109 H (98-107) mmol/L Carbon Dioxide 21 L (22-30) mmol/L BUN 20 H (7-17) mg/dL Creatinine 1.38 H (0.52-1.04) mg/dL Glucose 159 H (74-99) mg/dL POC Glucose (mg/dL) 159 H (75-99) mg/dL Calcium 8.3 L (8.4-10.2) mg/dL Troponin I (0.000-0.034) ng/mL 03/08/20 03/09/20 03/09/20 Range/Units 20:18 06:22 06:36 WBC 13.1 H (3.8-10.6) k/uL RBC 3.61 L (3.80-5.40) m/uL Hgb 7.7 L (11.4-16.0) gm/dL Hct 26.8 L (34.0-46.0) % MCV 74.3 L (80.0-100.0) fL MCH 21.3 L (25.0-35.0) pg MCHC 28.6 L (31.0-37.0) g/dL RDW 21.9 H (11.5-15.5) % Chloride (98-107) mmol/L Carbon Dioxide (22-30) mmol/L BUN (7-17) mg/dL Creatinine (0.52-1.04) mg/dL Glucose (74-99) mg/dL POC Glucose (mg/dL) 217 H 125 H (75-99) mg/dL Calcium (8.4-10.2) mg/dL Troponin I (0.000-0.034) ng/mL 03/09/20 03/09/20 Range/Units 06:36 06:36 WBC (3.8-10.6) k/uL RBC (3.80-5.40) m/uL Hgb (11.4-16.0) gm/dL Hct (34.0-46.0) % MCV (80.0-100.0) fL MCH (25.0-35.0) pg MCHC (31.0-37.0) g/dL RDW (11.5-15.5) % Chloride 109 H (98-107) mmol/L Carbon Dioxide (22-30) mmol/L BUN 25 H (7-17) mg/dL Creatinine 1.48 H (0.52-1.04) mg/dL Glucose 109 H (74-99) mg/dL POC Glucose (mg/dL) (75-99) mg/dL Calcium (8.4-10.2) mg/dL Troponin I 0.595 H* (0.000-0.034) ng/mL Assessment and Plan Plan: Assessment: 1 Acute hypoxic respiratory failure secondary to an acute exacerbation of systolic congestive heart failure with worsening ejection fraction at 20-25% 2 Paroxysmal atrial fibrillation with rapid ventricular response, currently on a Cardizem drip at 7.5 mg an hour. Anticoagulated with Xarelto. 3 Acute blood loss anemia secondary to acute GI bleeding from AVM at cecum 4 AVM at cecum, status post EGD and colonoscopy, treated with argon plasma coagulation therapy 5 Acute kidney injury 6 Hypertension 7 Hyperlipidemia 8 Carotid artery disease status post endarterectomy 9 Coronary artery disease status post previous coronary bypass grafting 10 Diabetes mellitus, type II 11 Chronic vertigo 12 Previous [id number] smoking history Plan Cardiology's perspective, we'll increase the dose of beta bryan to optimize rate control, because of the cardiomyopathy we will discontinue the IV Cardizem drip. DNP note has been reviewed, I agree with a documented findings and plan of care. Patient was seen and examined.
[2020-03-09 16:53] LABS: Glucose,Whole Blood 133 mg/dL (75-99)
[2020-03-09] MEDS: POTASSIUM CHLORIDE ER 20 MEQ TAB.ER PO SCH ×2 (17:39→21:28)
[2020-03-09] MEDS: LISINOPRIL 10 MG TAB PO SCH (21:28)
[2020-03-09] MEDS: METOPROLOL TARTRATE 50 MG TAB PO SCH (21:28)
[2020-03-09] MEDS: INSULIN DETEMIR (LEVEMIR) 100 UNIT/ML SYR SQ SCH (21:28)
[2020-03-10] MEDS: PANTOPRAZOLE 40 MG TABLET PO SCH (05:59)
[2020-03-10] MEDS: INSULIN ASPART (NovoLOG) 100 UNIT/ML VIAL SQ SCH ×2 (05:59→14:05)
[2020-03-10] MEDS: IPRATROPIUM-ALBUTEROL 3 ML NEB INHALATION SCH ×3 (08:33→15:32)
[2020-03-10] MEDS ORDERED: LEVOFLOXACIN 250 MG TAB PO SCH (09:00)
[2020-03-10] MEDS: CHLORHEXIDINE GLUCONATE 15 ML CUP MUCOUS MEM SCH (09:50)
[2020-03-10] MEDS: FUROSEMIDE 10 MG/ML 4 ML VIAL IV SCH (09:50)
[2020-03-10] MEDS: ATORVASTATIN 10 MG TAB PO SCH (09:50)
[2020-03-10] MEDS: CHOLECALCIFEROL 1,000 UNIT TAB PO SCH (09:50)
[2020-03-10] MEDS: POTASSIUM CHLORIDE ER 20 MEQ TAB.ER PO SCH (09:51)
[2020-03-10] MEDS: LINAGLIPTIN 5 MG TABLET PO SCH (09:51)
[2020-03-10] MEDS: HYDROcodone/APAP 5-325MG 1 EACH TAB PO SCH (09:51)
[2020-03-10] MEDS: METOPROLOL TARTRATE 50 MG TAB PO SCH (09:51)
[2020-03-10] MEDS: RIVAROXABAN 15 MG TAB PO SCH (09:51)
[2020-03-10] MEDS: PIPERACILLIN-TAZOBACTAM 3.375 GM in SODIUM CHLORIDE 0.9% 100 ML IVPB SCH (10:19)
--- NOTE | 2020-03-10 10:30 | P.DS ---
Providers Date of admission: 03/02/20 16:25 Expected date of discharge: 03/10/20 Attending physician: Marilyn Nash Consults: 03/07/20 21:41 Consult Physician Urgent Consulting Provider: Dejan Stanley Consult Reason/Comments: new afib rvr Do you want consulting provider notified?: Yes 03/08/20 12:56 Consult Physician Routine Consulting Provider: Edwardo Salas Consult Reason/Comments: pneumonia Do you want consulting provider notified?: Yes Primary care physician: Marilyn Nash [place] [facility] Course: This is an 89-year-old female patient with past medical history of coronary artery disease status post three-vessel CABG in 1995, carotid artery disease status post carotid endarterectomy in 2015, diabetes mellitus type 2, paroxysmal atrial fibrillation chronically on Xarelto, hypertension, hyperlipidemia, chronic vertigo 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 Patient presented yesterday to [facility] emergency center due to concerns for worsening vertigo that is aware she's ever had. She did not have any falls at home. She utilizes a walker for ambulation. She denies having any headache, lateral weakness, numbness or tingling, no chest pain or shortness of breath. She's had no nausea, vomiting or diarrhea. She is complaining of soreness in her mouth including lesions on her lips. Patient was found to be afebrile, heart rate 85, blood pressure 180/56 and pulse ox 97% on room air. EKG was in normal sinus rhythm with no acute ST changes. Chest x-ray revealed cardiomegaly correlate for COPD. Patient was found to have a potassium of 6.0 and she is status post calcium chloride, insulin and D50. Hemoglobin of 8, WBC 11.9. Sodium 138, Chloride 110, CO2 20, BUN 46 and creatinine 1.51, blood sugar 202. Lactic acid 0.9, troponin negative. Urinalysis clear with nitrate and leukoesterase negative. Xarelto has been placed on hold. [facility] and consult requested with GI.. 03/04: Patient is sitting up in bed in no apparent distress she is complaining of increased burning sensation in her throat as well as pain in her lips, she was seen earlier by gastroenterology was recommended for the patient to go for EGD and colonoscopy as she is anemic with microcytosis, her hemoglobin did drop to 7.3 she will be given iron infusion today and possibly tomorrow, she will need t o be scheduled for EGD and colonoscopy for further evaluation of chronic blood loss. 03/05: Patient is sitting up in bed that she is feeling a lot better than earlier in the morning when she developed to have a significant swelling of her lips and her tongue thought to be due to anaphylactic reaction with a questionable reaction to the IV iron and dextran, patient did receive Solu-Medrol 125 mg IV push 1, she is pain a lot better today she denies any sore throat she denies any difficulty swallowing she denies any shortness breath, she has no chest pain at this time, she has no abdominal pain, she was seen earlier by gastroenterology and she is scheduled to go for EGD and colonoscopy tomorrow morning. 03/06: Patient is nothing by mouth this morning and she is scheduled for EGD and colonoscopy today with Dr. Hackett. Hemoglobin is morning is 7.0, BUN 21 and creatinine 1.08. Patient has been hemodynamically stable, afebrile, pulse ox 96% on room air. Discharge plan is to return home with family. 03/07: Yesterday, patient underwent EGD with Dr. Hackett which revealed widely patent Schatzki's ring, otherwise normal upper endoscopy evaluation. Colonoscopy revealed scattered diverticulosis with no active bleeding, AVM treated with argon plasma coagulation in the cecum. Patient was cleared for diet, plan to hold anticoagulation for additional 48 hours but otherwise was cleared for discharge by GI. One dose of IV Lasix given this morning. Chest x- ray reveals new infiltrate left lower lobe with small effusion and patient started on IV Levaquin and nebulizer treatments. Patient has been afebrile, heart rate 104, blood pressure 194/66 and pulse ox 92% on 2 L nasal cannula. Repeat blood work reveals hemoglobin 7.8, WBC 13.8, platelet count 228. BUN 19 creatinine 1.13. Blood sugars running between 86 and 188. Anticipate probable discharge tomorrow. 03/08: Patient has been afebrile, heart rate 99, blood pressure 141/63, pulse ox 92% on 4 L nasal cannula. Patient does not have home O2 but will be assessed prior to discharge. Last evening, patient developed A. fib with RVR leading up to 150s and was transferred to the selective care unit. Heart rate has been running in the 90s this morning. Patient complains of episode of chest pain for which [place] helped. She is stating that the pain is back. It is in the middle of her chest. No radiation. She is noted to have a cough. We will add Zosyn and consult for pulmonary medicine for evaluation of pneumonia. Patient does not have much appetite states she normally does not eat very much besides protein drinks. Glucerna will be added. Patient urinated sufficiently following IV Lasix yesterday. Patient has been started back on Xarelto last evening. PT OT is following the patient and recommended home care. 03/09: Yesterday afternoon, patient developed worsening respiratory failure requiring nonrebreather. She received 1 dose of IV Lasix in the afternoon. Patient states she urinated twice during the night. She is complaining of dizziness when she sits up. She continues to have shortness of breath. She denies any chest pain. Patient is currently pulse ox seen 93% on 15 L nonrebreather, heart rate is in the 160s. She was started on Cardizem drip yesterday afternoon for A. fib with RVR. Blood pressure 117/61, afebrile. Subsequently blood pressure was 80/45. Lasix has been ordered and metoprolol. Consult placed with [facility] for informational meeting and children will be here this afternoon for meeting. WBC 13.1, hemoglobin 7.7, platelet count 241. Sodium 139, potassium 4.6, chloride 109, CO2 23, BUN 25 and creatinine 1.48. Troponin 0.595. Blood sugars running between 109 and 217. Repeat chest x-ray reveals systolic heart failure fluid overload with small tiny bilateral pleural effusions and associated bibasilar atelectasis and new infiltrates. No significant change from earlier. Echocardiogram reveals EF of 30-35% with mild aortic stenosis, mild tricuspid regurgitation, mild pulmonary hypertension. 03/10: 1 patient was seen this morning, she is refusing BiPAP and refusing her medications. She continues to have a rapid heart rate running in the 150s. She continues to not feel well. She denies any abdominal pain or tenderness. No chest pain. She has had some Ensure this morning but otherwise not taking meals. She is currently on a nonrebreather and has refused for vital sign check. Patient and family met with [facility] yesterday and plan is for patient to go to [facility] under hospice care. Nursing to decrease O2 to 6 L which is required for [facility]. Prescriptions have been provided. Patient has been added oral morphine and Ativan as needed. Patient will be discharge to [facility] once all arrangements are completed. Discharge diagnoses: 1. Anaphylactic reaction possibly due to IV iron dextran. Resolved. 2. Acute kidney injury with hyperkalemia. 3. Acute blood loss anemia anemia secondary to acute GI bleed due to AVM at cecum. 4. Paroxysmal atrial fibrillation, chronically on Xarelto. 5. Possible gram-negative left lower lobe pneumonia. 6. Acute hypoxic respiratory failure secondary to left lower lobe pneumonia and acute diastolic heart failure and A. fib with RVR. 7. History of coronary artery disease status post three-vessel CABG in 1995. 8. Carotid artery disease status post carotid endarterectomy, stable. 9. Diabetes mellitus type 2, insulin requiring. 10. Hypertension, hypertensive cardiovascular disease. 11. Hyperlipidemia. 12. Chronic vertigo. 13. Gastroesophageal reflux disease. 14. Chronic idiopathic constipation. 15. COVID-19 infection not present. Discharge plan: [facility] with [facility] Impression and plan of care have been directed as dictated by the signing physician. Nataliia Alejo nurse practitioner acting as scribe for signing physician. Patient Condition at Discharge: Fair Plan - Discharge Summary New Discharge Prescriptions: New LORazepam ORAL CONC [Ativan Intensol] 2 mg PO Q4HR PRN #30 ml PRN Reason: Anxiety Ipratropium-Albuterol Nebulize [Duoneb 0.5 mg-3 mg/3 ml Soln] 3 ml INHALATION RT-QID ml Atropine Ophth Soln 1% 5Ml [Isopto Atropine 1% 5Ml] 2 drops PO Q4HR PRN #1 bottle PRN Reason: Secretions Levofloxacin [Levaquin] 250 mg PO DAILY #7 tab Metoprolol Tartrate [Lopressor] 50 mg PO BID tab MORPHINE ORAL MIKE CONC 20mg/mL [Roxanol Oral Soln Conc 20MG/ML] 5 mg PO Q4H PRN #30 ml PRN Reason: Pain Rivaroxaban [Xarelto] 15 mg PO DAILY tab Continue Insulin Detemir [Levemir Flextouch] 14 units SQ HS Hydrocodone/Acetaminophen [[place] 5-325] 1 tab PO TID #9 tab Discontinued Cholecalciferol [Vitamin D3 (25 Mcg = 1000 Iu)] 2,000 unit PO DAILY Rivaroxaban [Xarelto] 15 mg PO DAILY amLODIPine [Norvasc] 5 mg PO DAILY Simvastatin [Zocor] 20 mg PO DAILY Linagliptin [Tradjenta] 5 mg PO DAILY Lisinopril [Zestril] 10 mg PO HS #30 tab Insulin Lispro [humaLOG Kwikpen] See Protocol SQ TID Lubiprostone [Amitiza] 24 mcg PO BID Pantoprazole [Protonix] 40 mg PO DAILY Discharge Medication List Insulin Detemir [Levemir Flextouch] 14 units SQ HS 03/02/20 [History] Atropine Ophth Soln 1% 5Ml [Isopto Atropine 1% 5Ml] 2 drops PO Q4HR PRN #1 bottle 03/10/20 [Rx] Hydrocodone/Acetaminophen [[place] 5-325] 1 tab PO TID #9 tab 03/10/20 [Rx] Ipratropium-Albuterol Nebulize [Duoneb 0.5 mg-3 mg/3 ml Soln] 3 ml INHALATION RT-QID ml 03/10/20 [Rx] LORazepam ORAL CONC [Ativan Intensol] 2 mg PO Q4HR PRN #30 ml 03/10/20 [Rx] Levofloxacin [Levaquin] 250 mg PO DAILY #7 tab 03/10/20 [Rx] MORPHINE ORAL MIKE CONC 20mg/mL [Roxanol Oral Soln Conc 20MG/ML] 5 mg PO Q4H PRN #30 ml 03/10/20 [Rx] Metoprolol Tartrate [Lopressor] 50 mg PO BID tab 03/10/20 [Rx] Rivaroxaban [Xarelto] 15 mg PO DAILY tab 03/10/20 [Rx] Follow up Appointment(s)/Referral(s): Marilyn Nash MD [Primary Care Provider] - 1-2 days
[2020-03-10] MEDS: LORazepam 1 MG TAB PO SCH ×2 (11:22→14:45)
[2020-03-10 11:30] VITALS: BP 149/74; TEMP 98.2
[2020-03-10] MEDS: MORPHINE CONC SOLN 10mg/0.5mL ORAL SYRG PO SCH ×2 (11:37→14:45)
[2020-03-10 15:35] VITALS: RESP 18
[2020-03-10 15:50] VITALS: PULSE 92
== END 2020-03-10 16:07 | DRG 377 ==
LOC: EC 13:24 → 4SSUR 16:25 → 3SCARD 03-07 22:33
PROVIDERS: ADMIT Internal Medicine; ATTEND Internal Medicine
PROC: 0DJ08ZZ Inspection of Upper Intestinal Tract, Via Natural or Artificial Opening Endoscopic (ICD-10-PCS; principal; 2020-03-06 09:20)
PROC: 0W3P8ZZ Control Bleeding in Gastrointestinal Tract, Via Natural or Artificial Opening Endoscopic (ICD-10-PCS; principal; 2020-03-06 09:20)
DX: K55.21 Angiodysplasia of colon with hemorrhage (principal); I50.33 Acute on chronic diastolic (congestive) heart failure; J15.6 Pneumonia due to other Gram-negative bacteria; J96.01 Acute respiratory failure with hypoxia; D62 Acute posthemorrhagic anemia; N17.9 Acute kidney failure, unspecified; T88.6XXA Anaphylactic reaction due to adverse effect of correct drug or medicament properly administered, initial encounter; I27.20 Pulmonary hypertension, unspecified; I08.2 Rheumatic disorders of both aortic and tricuspid valves; K22.2 Esophageal obstruction; E11.51 Type 2 diabetes mellitus with diabetic peripheral angiopathy without gangrene; I11.0 Hypertensive heart disease with heart failure; E78.5 Hyperlipidemia, unspecified; E86.0 Dehydration; E87.5 Hyperkalemia; I25.10 Atherosclerotic heart disease of native coronary artery without angina pectoris; I25.2 Old myocardial infarction; I48.0 Paroxysmal atrial fibrillation; K21.9 Gastro-esophageal reflux disease without esophagitis; K57.30 Diverticulosis of large intestine without perforation or abscess without bleeding; Z11.59 Encounter for screening for other viral diseases; K59.04 Chronic idiopathic constipation; T45.4X5A Adverse effect of iron and its compounds, initial encounter; H26.9 Unspecified cataract; R07.89 Other chest pain; R26.9 Unspecified abnormalities of gait and mobility; Z79.01 Long term (current) use of anticoagulants; Z79.4 Long term (current) use of insulin; Z79.899 Other long term (current) drug therapy; Z95.1 Presence of aortocoronary bypass graft; Z87.891 Personal history of nicotine dependence; Z88.8 Allergy status to other drugs, medicaments and biological substances; Z91.81 History of falling; Z66 Do not resuscitate; Z80.8 Family history of malignant neoplasm of other organs or systems
CPT/HCPCS: 36415; 43235; 45382; 71045; 71046; 80048; 80053; 81001; 83605; 83735; 83880; 84484; 85025; 85027; 85610; 85730; 93005; 93306; 94640; 94660; 94760; 96361; 96374; 96375; 99285

== ENCOUNTER 2020-04-08 16:49 | Inpatient (IN) | payer MEDICARE, BC ==
[2020-04-08 17:54] LABS: Anisocytosis Marked; Basophils # (A) 0.1 k/uL (0-0.2); Basophils % (A) 1 %; Eosinophils # (A) 0.2 k/uL (0-0.7); Eosinophils % (A) 3 %; HCT 32.7 % (34.0-46.0); Hypochromasia Marked; Lymphocytes # (A) 0.9 k/uL (1.0-4.8); Lymphocytes % (A) 13 %; MCH 21.9 pg (25.0-35.0); MCHC 27.8 g/dL (31.0-37.0); MCV 78.8 fL (80.0-100.0); Mean Platelet Volume 8.2; Microcytosis Moderate; Monocytes # (A) 0.5 k/uL (0-1.0); Monocytes % (A) 7 %; Neutrophils # (A) 5.2 k/uL (1.3-7.7); Neutrophils % (A) 73 %; Platelet Count 256 k/uL (150-450); RBC 4.15 m/uL (3.80-5.40); RDW 24.5 % (11.5-15.5); WBC 7.2 k/uL (3.8-10.6)
--- NOTE | 2020-04-08 17:54 | ED ---
General Adult HPI - General Chief complaint: Dizziness Stated complaint: Weakness, Dizziness Time Seen by Provider: 04/08/20 17:06 Source: patient, EMS Mode of arrival: EMS Limitations: no limitations - History of Present Illness Initial comments: Patient is an 89-year-old female, with history of heart disease, diabetes, hypertension, vertigo, presenting to the emergency Department with complaints of dizziness as well as weakness as well as increasing over the past few days. Patient was recently admitted for this and discharged to [facility]. Patient states she just returned home from [facility] yesterday. Patient states she is "useless." She states she cannot stand up or move around on her own. She states she is mildly short of breath so they did start her on oxygen at home. She states that has been helping. She is also complaining of dizziness but states she has had this for months now. She denies any recent fever or chills. She denies any falls or trauma. She denies any pain anywhere including no chest pain, no abdominal pain. She denies any nausea or vomiting. She denies any urinary complaints. She has no further complaints at this time. Upon arrival to the ER, her vital signs are stable. - Related Data Home Medications Medication Instructions Recorded Confirmed Insulin Detemir [Levemir Flextouch] 14 units SQ HS 03/02/20 03/02/20 Previous Rx's Medication Instructions Recorded Atropine Ophth Soln 1% 5Ml [Isopto 2 drops PO Q4HR PRN #1 bottle 03/10/20 Atropine 1% 5Ml] Hydrocodone/Acetaminophen [[place] 1 tab PO TID #9 tab 03/10/20 5-325] Ipratropium-Albuterol Nebulize 3 ml INHALATION RT-QID ml 03/10/20 [Duoneb 0.5 mg-3 mg/3 ml Soln] LORazepam ORAL CONC [Ativan 2 mg PO Q4HR PRN #30 ml 03/10/20 Intensol] Levofloxacin [Levaquin] 250 mg PO DAILY #7 tab 03/10/20 MORPHINE ORAL MIKE CONC 20mg/mL 5 mg PO Q4H PRN #30 ml 03/10/20 [Roxanol Oral Soln Conc 20MG/ML] Metoprolol Tartrate [Lopressor] 50 mg PO BID tab 03/10/20 Rivaroxaban [Xarelto] 15 mg PO DAILY tab 03/10/20 Allergies Allergy/AdvReac Type Severity Reaction Status Date / Time zolpidem [From Ambien] AdvReac Hallucinati Verified 04/08/20 16:56 ons Review of Systems ROS Statement: Those systems with pertinent positive or pertinent negative responses have been documented in the HPI. ROS Other: All systems not noted in ROS Statement are negative. Past Medical History Past Medical History: Coronary Artery Disease (CAD), Chest Pain / Angina, Diabetes Mellitus, Hyperlipidemia, Hypertension, Myocardial Infarction (ND), Syncope Additional Past Medical History / Comment(s): NIDDM type II, vertigo/weakness past 5 years and pt states she has had tests but no one knows why, weakness, ga it disturbance, falls, bilateral cataracts, dehydration Last Myocardial Infarction Date:: 1995 History of Any Multi-Drug Resistant Organisms: None Reported Past Surgical History: Adenoidectomy, Coronary Bypass/CABG, Heart Cat heterization, Orthopedic Surgery, Tonsillectomy Additional Past Surgical History / Comment(s): 3 vessel CABG 1995 in [place], carotid endartectomy 2015, ORIF L ankle d/t fracture. Past Anesthesia/Blood Transfusion Reactions: No Reported Reaction Past Psychological History: No Psychological Hx Reported Smoking Status: Former smoker Past Alcohol Use History: None Reported Past Drug Use History: None Reported - Past Family History Mother Family Medical History: No Reported History Additional Family Medical History / Comment(s): Mother at age 82 from old age. Father Family Medical History: No Reported History Additional Family Medical History / Comment(s): Father from old age and patient does not recall his age or any medical problems. Son(s) Family Medical History: Cancer Additional Family Medical History / Comment(s): Patient has one son with history of throat cancer in remission. Patient has one daughter with no major medical problems. Patient does not have any brothers or sisters. General Exam - General Exam Comments Initial Comments: GENERAL: Patient is well-developed and well-nourished. Patient is nontoxic and in no acute distress. HEAD: Atraumatic, normocephalic. EYES: Pupils equal round and reactive to light, extraocular movements intact, sclera anicteric, conjunctiva are normal. Eyelids were unremarkable. ENT: TMs normal, nares patent, oropharynx clear without exudates. Moist mucous membranes. NECK: Normal range of motion, supple without lymphadenopathy or JVD. LUNGS: Unlabored respirations. Breath sounds clear to auscultation bilaterally and equal. No wheezes rales or rhonchi. HEART: Regular rate and rhythm without murmurs, rubs or gallops. ABDOMEN: Soft, nontender, normoactive bowel sounds. No guarding, no rebound. No masses appreciated. : Deferred MUSCULOSKELETAL: Normal extremities wwith adequate strength and normal range of motion, no pitting or edema. No clubbing or cyanosis. NEUROLOGICAL: Patient is alert and oriented x 3. Motor and sensory are also intact. Cranial nerves II through XII grossly intact. Normal speech. Symmetrical smile. PSYCH: Normal mood, normal affect. SKIN: Warm, Dry, normal turgor, no rashes or lesions noted. Limitations: no limitations Course Vital Signs 04/08/20 16:56 Temperature 99 F Pulse Rate 70 Respiratory 18 Rate Blood Pressure 193/66 O2 Sat by Pulse 98 Oximetry EKG Findings - EKG Comments: EKG Findings:: Normal sinus rhythm, nonspecific T-wave abnormalities, no signs of acute ischemia. Ventricular rate 66, NJ interval 148, QTC 438. Medical Decision Making - Medical Decision Making Patient is an 89-year-old female presenting with weakness of increasing of the past few days. She was just discharged from [facility] yesterday. She feels like she cannot walk around or stand on her own. She denies any pain anywhere. She states she does feel dizzy with states this has been an ongoing issue. Vital signs are stable, her exam is unremarkable, no acute findings. Chest x-ray does show a new moderate left and small right pleural effusions, correlate for possible CHF. Lab work shows a stable hemoglobin at 9.1, INR is 1.2 lactic acid is normal at 1.0. Troponin is normal. BNP is slightly elevated from previous at 19,000. Shows no evidence of infection. Patient states she is on a table to stand on her own. I do recommend admission for weakness. Patient was accepted by Dr. Nash. Patient is agreeable with this plan of care. Case discussed with Dr. Banuelos. - Lab Data Result diagrams: 04/08/20 17:39 04/08/20 17:39 Lab Results 07/18/20 07/18/20 07/18/20 Range/Units 17:39 17:39 17:39 WBC 7.2 (3.8-10.6) k/uL RBC 4.15 (3.80-5.40) m/uL Hgb 9.1 L D (11.4-16.0) gm/dL Hct 32.7 L (34.0-46.0) % MCV 78.8 L (80.0-100.0) fL MCH 21.9 L (25.0-35.0) pg MCHC 27.8 L (31.0-37.0) g/dL RDW 24.5 H (11.5-15.5) % Plt Count 256 (150-450) k/uL Neutrophils % 73 % Lymphocytes % 13 % Monocytes % 7 % Eosinophils % 3 % Basophils % 1 % Neutrophils # 5.2 (1.3-7.7) k/uL Lymphocytes # 0.9 L (1.0-4.8) k/uL Monocytes # 0.5 (0-1.0) k/uL Eosinophils # 0.2 (0-0.7) k/uL Basophils # 0.1 (0-0.2) k/uL Hypochromasia Marked Anisocytosis Marked Microcytosis Moderate PT 11.9 (9.0-12.0) sec INR 1.2 H (<1.2) APTT 20.7 L (22.0-30.0) sec Sodium 140 (137-145) mmol/L Potassium 4.4 (3.5-5.1) mmol/L Chloride 110 H (98-107) mmol/L Carbon Dioxide 24 (22-30) mmol/L Anion Gap 6 mmol/L BUN 13 (7-17) mg/dL Creatinine 1.10 H (0.52-1.04) mg/dL Est GFR (CKD-EPI)AfAm 52 (>60 ml/min/1.73 sqM) Est GFR (CKD-EPI)NonAf 45 (>60 ml/min/1.73 sqM) Glucose 99 (74-99) mg/dL Plasma Lactic Acid Jose (0.7-2.0) mmol/L Calcium 8.7 (8.4-10.2) mg/dL Magnesium 2.0 (1.6-2.3) mg/dL Total Bilirubin 1.3 (0.2-1.3) mg/dL AST 22 (14-36) U/L ALT 13 (4-34) U/L Alkaline Phosphatase 37 L (38-126) U/L Troponin I (0.000-0.034) ng/mL NT-Pro-B Natriuret Pep pg/mL Total Protein 5.8 L (6.3-8.2) g/dL Albumin 3.3 L (3.5-5.0) g/dL TSH 1.940 (0.465-4.680) mIU/L Urine Color Urine Appearance (Clear) Urine pH (5.0-8.0) Ur Specific Lamar (1.001-1.035) Urine Protein (Negative) Urine Glucose (UA) (Negative) Urine Ketones (Negative) Urine Blood (Negative) Urine Nitrite (Negative) Urine Bilirubin (Negative) Urine Urobilinogen (<2.0) mg/dL Ur Leukocyte Esterase (Negative) Urine RBC (0-5) /hpf Urine WBC (0-5) /hpf Ur Squamous Epith Cells (0-4) /hpf Urine Mucus (None) /hpf 04/08/20 04/08/20 04/08/20 Range/Units 17:39 17:39 17:39 WBC (3.8-10.6) k/uL RBC (3.80-5.40) m/uL Hgb (11.4-16.0) gm/dL Hct (34.0-46.0) % MCV (80.0-100.0) fL MCH (25.0-35.0) pg MCHC (31.0-37.0) g/dL RDW (11.5-15.5) % Plt Count (150-450) k/uL Neutrophils % % Lymphocytes % % Monocytes % % Eosinophils % % Basophils % % Neutrophils # (1.3-7.7) k/uL Lymphocytes # (1.0-4.8) k/uL Monocytes # (0-1.0) k/uL Eosinophils # (0-0.7) k/uL Basophils # (0-0.2) k/uL Hypochromasia Anisocytosis Microcytosis PT (9.0-12.0) sec INR (<1.2) APTT (22.0-30.0) sec Sodium (137-145) mmol/L Potassium (3.5-5.1) mmol/L Chloride (98-107) mmol/L Carbon Dioxide (22-30) mmol/L Anion Gap mmol/L BUN (7-17) mg/dL Creatinine (0.52-1.04) mg/dL Est GFR (CKD-EPI)AfAm (>60 ml/min/1.73 sqM) Est GFR (CKD-EPI)NonAf (>60 ml/min/1.73 sqM) Glucose (74-99) mg/dL Plasma Lactic Acid Jose 1.0 (0.7-2.0) mmol/L Calcium (8.4-10.2) mg/dL Magnesium (1.6-2.3) mg/dL Total Bilirubin (0.2-1.3) mg/dL AST (14-36) U/L ALT (4-34) U/L Alkaline Phosphatase (38-126) U/L Troponin I <0.012 (0.000-0.034) ng/mL NT-Pro-B Natriuret Pep 88499 pg/mL Total Protein (6.3-8.2) g/dL Albumin (3.5-5.0) g/dL TSH (0.465-4.680) mIU/L Urine Color Urine Appearance (Clear) Urine pH (5.0-8.0) Ur Specific Lamar (1.001-1.035) Urine Protein (Negative) Urine Glucose (UA) (Negative) Urine Ketones (Negative) Urine Blood (Negative) Urine Nitrite (Negative) Urine Bilirubin (Negative) Urine Urobilinogen (<2.0) mg/dL Ur Leukocyte Esterase (Negative) Urine RBC (0-5) /hpf Urine WBC (0-5) /hpf Ur Squamous Epith Cells (0-4) /hpf Urine Mucus (None) /hpf 04/08/20 Range/Units 18:42 WBC (3.8-10.6) k/uL RBC (3.80-5.40) m/uL Hgb (11.4-16.0) gm/dL Hct (34.0-46.0) % MCV (80.0-100.0) fL MCH (25.0-35.0) pg MCHC (31.0-37.0) g/dL RDW (11.5-15.5) % Plt Count (150-450) k/uL Neutrophils % % Lymphocytes % % Monocytes % % Eosinophils % % Basophils % % Neutrophils # (1.3-7.7) k/uL Lymphocytes # (1.0-4.8) k/uL Monocytes # (0-1.0) k/uL Eosinophils # (0-0.7) k/uL Basophils # (0-0.2) k/uL Hypochromasia Anisocytosis Microcytosis PT (9.0-12.0) sec INR (<1.2) APTT (22.0-30.0) sec Sodium (137-145) mmol/L Potassium (3.5-5.1) mmol/L Chloride (98-107) mmol/L Carbon Dioxide (22-30) mmol/L Anion Gap mmol/L BUN (7-17) mg/dL Creatinine (0.52-1.04) mg/dL Est GFR (CKD-EPI)AfAm (>60 ml/min/1.73 sqM) Est GFR (CKD-EPI)NonAf (>60 ml/min/1.73 sqM) Glucose (74-99) mg/dL Plasma Lactic Acid Jose (0.7-2.0) mmol/L Calcium (8.4-10.2) mg/dL Magnesium (1.6-2.3) mg/dL Total Bilirubin (0.2-1.3) mg/dL AST (14-36) U/L ALT (4-34) U/L Alkaline Phosphatase (38-126) U/L Troponin I (0.000-0.034) ng/mL NT-Pro-B Natriuret Pep pg/mL Total Protein (6.3-8.2) g/dL Albumin (3.5-5.0) g/dL TSH (0.465-4.680) mIU/L Urine Color Yellow Urine Appearance Clear (Clear) Urine pH 6.0 (5.0-8.0) Ur Specific Lamar 1.011 (1.001-1.035) Urine Protein 1+ H (Negative) Urine Glucose (UA) Negative (Negative) Urine Ketones Negative (Negative) Urine Blood Negative (Negative) Urine Nitrite Negative (Negative) Urine Bilirubin Negative (Negative) Urine Urobilinogen <2.0 (<2.0) mg/dL Ur Leukocyte Esterase Negative (Negative) Urine RBC <1 (0-5) /hpf Urine WBC 2 (0-5) /hpf Ur Squamous Epith Cells 1 (0-4) /hpf Urine Mucus Rare H (None) /hpf Disposition Clinical Impression: Weakness Disposition: ADMITTED IP TO THIS [facility] Condition: Good Referrals: Marilyn Nash MD [Primary Care Provider] - 1-2 days Decision Date: 04/08/20 Decision Time: 19:25
[2020-04-08 18:00] LABS: HGB 9.1 gm/dL (11.4-16.0)
[2020-04-08 18:15] LABS: Albumin 3.3 g/dL (3.5-5.0); Calcium 8.7 mg/dL (8.4-10.2); INR 1.2 (<1.2); Partial Thromboplastin Time 20.7 sec (22.0-30.0); Potassium 4.4 mmol/L (3.5-5.1); Prothrombin Time 11.9 sec (9.0-12.0); Total Bilirubin 1.3 mg/dL (0.2-1.3); Total Protein 5.8 g/dL (6.3-8.2)
--- NOTE | 2020-04-08 18:28 | XR ---
EXAMINATION TYPE: XR chest 2V DATE OF EXAM: 04/08/2020 COMPARISON: 03/09/2020 HISTORY: 89-year-old female with weakness and dizziness TECHNIQUE: AP and lateral views FINDINGS: Left heart margin obscured by adjacent pleural parenchymal opacity. Median sternotomy wires with post operative clips in the mediastinum. Atherosclerotic calcifications throughout the aorta. Mild diffuse interstitial prominence. There is new moderate left and small right pleural effusions. IMPRESSION: 1. New moderate left and small right pleural effusions with adjacent atelectasis and/or consolidation . 2. Correlate for possible CHF as an etiology.
[2020-04-08 18:54] LABS: Appearance,Urine Clear (Clear); Bilirubin,Urine Negative (Negative); Blood,Urine Negative (Negative); Color,Urine Yellow; Glucose,Urine (UA) Negative (Negative); Ketones,Urine Negative (Negative); Leukocyte Esterase,Urine Negative (Negative); Mucus,Urine Rare /hpf; Nitrite,Urine Negative (Negative); Protein,Urine 1+ (Negative); RBC,Urine <1 /hpf (0-5); Specific Gravity,Urine 1.011 (1.001-1.035); Squamous Epithelial Cell,Urine 1 /hpf (0-4); Urobilinogen,Urine <2.0 mg/dL (<2.0); WBC,Urine 2 /hpf (0-5)
[2020-04-08] MEDS ORDERED: NALOXONE 0.4 MG/ML 1 ML VIAL IV PRN (19:21)
[2020-04-08 21:17] LABS: Glucose,Whole Blood 141 mg/dL (75-99)
[2020-04-09] MEDS ORDERED: IPRATROPIUM-ALBUTEROL 3 ML NEB INHALATION PRN (06:06)
[2020-04-09] MEDS ORDERED: Lubiprostone [Amitiza] 24 MCG PO PRN (06:06)
[2020-04-09] MEDS ORDERED: lisinopriL 10 MG TAB PO STA (06:12)
[2020-04-09] MEDS: METOPROLOL TARTRATE 50 MG TAB PO SCH ×2 (06:21→20:19)
[2020-04-09] MEDS: amLODIPine 5 MG TAB PO SCH (06:21)
[2020-04-09 07:12] LABS: Glucose,Whole Blood 113 mg/dL (75-99)
[2020-04-09] MEDS: CHOLECALCIFEROL 1,000 UNIT TAB PO SCH (07:44)
[2020-04-09] MEDS: ALPRAZolam 0.5 MG TAB PO SCH ×2 (07:44→20:19)
[2020-04-09] MEDS: LINAGLIPTIN 5 MG TABLET PO SCH (07:44)
[2020-04-09] MEDS: polyethylene glycoL 3350 17 GM POWD.PACK PO SCH (07:44)
[2020-04-09 08:35] LABS: Anisocytosis Marked; Basophils # (A) 0.1 k/uL (0-0.2); Basophils % (A) 1 %; Eosinophils # (A) 0.2 k/uL (0-0.7); Eosinophils % (A) 3 %; HCT 33.4 % (34.0-46.0); HGB 9.3 gm/dL (11.4-16.0); Hypochromasia Marked; Lymphocytes # (A) 0.9 k/uL (1.0-4.8); Lymphocytes % (A) 12 %; MCH 21.9 pg (25.0-35.0); MCHC 27.9 g/dL (31.0-37.0); MCV 78.7 fL (80.0-100.0); Mean Platelet Volume 8.6; Microcytosis Moderate; Monocytes # (A) 0.6 k/uL (0-1.0); Monocytes % (A) 8 %; Neutrophils # (A) 5.5 k/uL (1.3-7.7); Neutrophils % (A) 73 %; Platelet Count 287 k/uL (150-450); RBC 4.24 m/uL (3.80-5.40); RDW 24.7 % (11.5-15.5); WBC 7.5 k/uL (3.8-10.6)
[2020-04-09 09:07] LABS: Albumin 3.4 g/dL (3.5-5.0); Calcium 9.1 mg/dL (8.4-10.2); Potassium 4.7 mmol/L (3.5-5.1); Total Bilirubin 1.3 mg/dL (0.2-1.3); Total Protein 5.8 g/dL (6.3-8.2)
--- NOTE | 2020-04-09 11:20 | P.HPIM ---
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, patient was recently hospitalized at [facility] back in February 2020 where she was admitted for increased dizziness and lightheadedness and underwent upper and lower endoscopy that showed initially Schatzki's ring with diverticulosis and 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 that was treated with argon treatment, patient also during the last hospital admission went into atrial fibrillation with rapid ventricular response she ended up with acute systolic heart failure underwent echocardiogram that showed ejection fraction of 30-35%, with a mild aortic stenosis and aortic sclerosis, no mitral regurgitation but there was mild tricuspid regurgitation, patient was treated with the heparin drip and subsequently she was switched back to Xarelto 50 mg orally once every day, patient became quite short of breath and she was requiring BiPAP treatment however she elected to go into hospice care she went back to [facility] under hospice care while she was at [facility] she elected to sign herself off of hospice care and she want medical care at that time subsequently her medications were restarted and the patient was treated medically she was just discharged from [facility] 24 hours ago and she went to her daughter's house however she became quite weak and extreme short of breath, she ended up coming to the emergency department at [facility] had a chest x-ray that showed left more than right pleural effusion and she was hypertensive, patient will be given Lasix 40 mg IV push every 12 hours, she will be seen in consultation by cardiology as well as by pulmonary for possible thoracentesis in the left side. Review of Systems Constitutional: Reports chronic pain, Reports fatigue, Reports malaise, Reports weakness, Denies anorexia, Denies weight gain, Denies weight loss Eyes: denies blurred vision, denies bulging eye, denies decreased vision Ears: bilateral: decreased hearing Ears, nose, mouth and throat: Denies dysphagia, Denies neck lump, Denies sore throat Cardiovascular: Reports decreased exercise tolerance, Reports dyspnea on exertion, Reports shortness of breath, Denies chest pain, Denies lightheadedness, Denies rapid heart beat, Denies syncope Gastrointestinal: Reports loss of appetite, Denies abdominal pain, Denies BRBPR, Denies excessive gas, Denies heartburn, Denies melena, Denies nausea, Denies vomiting Genitourinary: Reports nocturia, Denies dysuria Menstruation: Reports postmenopausal Musculoskeletal: Reports atrophy, Reports gait dysfunction Musculoskeletal: absent: ankle pain, ankle stiffness, ankle swelling, elbow pain, elbow stiffness, elbow swelling, foot pain, foot stiffness, foot swelling, hand pain, hand stiffness, hand swelling, hip pain, hip stiffness, hip swelling, knee pain, knee stiffness, knee swelling, shoulder pain, shoulder stiffness, shoulder swelling, wrist pain, wrist stiffness, wrist swelling Integumentary: Denies pruritus, Denies rash Neurological: Reports balance difficulties, Reports gait dysfunction, Reports w eakness Psychiatric: Reports anxiety, Denies depression, Denies sadness/tearfulness, Denies sleep disturbances, Denies suicidal ideation Endocrine: Denies fatigue, Denies weight change Past Medical History Past Medical History: Coronary Artery Disease (CAD), Chest Pain / Angina, Diabetes Mellitus, Hyperlipidemia, Hypertension, Myocardial Infarction ([place]), Syncope Additional Past Medical History / Comment(s): DM type II, vertigo/weakness past 5 years and pt states she has had tests but no one knows why, weakness, gait disturbance, falls, bilateral cataracts, dehydration Last Myocardial Infarction Date:: 1995 History of Any Multi-Drug Resistant Organisms: None Reported Past Surgical History: Adenoidectomy, Coronary Bypass/CABG, Heart Catheterization, Orthopedic Surgery, Tonsillectomy Additional Past Surgical History / Comment(s): 3 vessel CABG 1995 in [place], carotid endartectomy 2016, ORIF L ankle d/t fracture. Past Anesthesia/Blood Transfusion Reactions: No Reported Reaction Past Psychological History: No Psychological Hx Reported Additional Psychological History / Comment(s): Pt resides alone in an apartment with her daughter living down the hallway. She has a walker and wheelchair. She no longer drives, her son takes her to appointments. Smoking Status: Former smoker Past Alcohol Use History: None Reported Additional Past Alcohol Use History / Comment(s): Patient smoked one pack per day for 60 years or more and quit in 2016. She denies any alcohol use, marijuana or street drug use. Past Drug Use History: None Reported Additional Drug Use History / Comment(s): Patient smoked for 60+ years. Quit in 2015 - Past Family History Mother Family Medical History: No Reported History Additional Family Medical History / Comment(s): Mother at age 82 from old age. Father Family Medical History: No Reported History Additional Family Medical History / Comment(s): Father from old age and patient does not recall his age or any medical problems. Son(s) Family Medical History: Cancer Additional Family Medical History / Comment(s): Patient has one son with history of throat cancer in remission. Patient has one daughter with no major medical problems. Patient does not have any brothers or sisters. Medications and Allergies Home Medications Medication Instructions Recorded Confirmed Type Insulin Detemir [Levemir Flextouch] 14 units SQ HS 03/02/20 04/08/20 History ALPRAZolam [Xanax] 0.5 mg PO BID 04/08/20 04/08/20 History Cholecalciferol [Vitamin D3 (25 2,000 unit PO DAILY 04/08/20 04/08/20 History Mcg = 1000 Iu)] Hydrocodone/Acetaminophen [[place] 1 tab PO TID PRN 04/08/20 04/08/20 History 5-325] Ipratropium-Albuterol Nebulize 3 ml INHALATION RT-QID PRN 04/08/20 04/08/20 History [Duoneb 0.5 mg-3 mg/3 ml Soln] Linagliptin [Tradjenta] 5 mg PO DAILY 04/08/20 04/08/20 History Lisinopril [Prinivil] 10 mg PO HS 04/08/20 04/08/20 History Lubiprostone [Amitiza] 24 mcg PO BID PRN 04/08/20 04/08/20 History Metoprolol Tartrate [Lopressor] 50 mg PO BID 04/08/20 04/08/20 History Pantoprazole [Protonix] 40 mg PO HS 04/08/20 04/08/20 History Polyethylene Glycol 3350 [Miralax] 17 gm PO DAILY 04/08/20 04/08/20 History Rivaroxaban [Xarelto] 15 mg PO HS 04/08/20 04/08/20 History Simvastatin [Zocor] 20 mg PO HS 04/08/20 04/08/20 History amLODIPine [Norvasc] 5 mg PO DAILY 04/08/20 04/08/20 History Allergies Allergy/AdvReac Type Severity Reaction Status Date / Time zolpidem [From Ambien] AdvReac Hallucinati Verified 04/08/20 22:15 ons Physical Exam Vitals: Vital Signs Temp Pulse Pulse Resp BP BP Pulse Ox 04/09/20 07:45 79 04/09/20 07:35 77 94 L 04/09/20 04:41 97.6 F 75 18 198/84 95 04/08/20 20:47 97.6 F 66 17 184/66 96 04/08/20 20:16 98.3 F 64 18 172/59 99 04/08/20 16:56 99 F 70 18 193/66 98 Intake and Output 04/08/20 04/09/20 04/09/20 22:59 06:59 14:59 Intake Total 100 Balance 100 Intake: Oral 100 Other: Voiding Method Diaper Bedpan Incontinent # Voids 1 1 Weight 70 kg 68.5 kg Physical examination: HEENT: Head is atraumatic, normocephalic, pupils were equal round reactive to light and accommodations, extraocular muscle movement were intact. Oral mucous membranes are dry patient sounded to the upper and lower lip. Neck: Supple, no JVP, decreased carotid upstroke bilaterally. Chest: Decreased breath sounds at the bases, decreased tactile fremitus at the lower two thirds of the left lung and one third of the right lung secondary to pleural effusion, there is no chest wall tenderness no intercostal retractions there is no expiratory wheezes. Heart: First heart sound is depressed, second heart sounds normal, there is systolic murmur 2/6 located at the right second intercostal space related to the base of the neck per Abdomen: Soft, nontender, nondistended, positive bowel sounds. Extremities: No pedal edema bilaterally, dorsalis pedis palpable bilaterally. No calf tenderness. Neurologic examination: Patient is awake and alert and oriented 3. No focal neuro deficits. Cranial nerves III-12 appear grossly intact. Results CBC & Chem 7: 04/09/20 07:14 04/09/20 07:14 Labs: Abnormal Lab Results - Last 24 Hours (Table) 04/08/20 04/08/20 04/08/20 Range/Units 17:39 17:39 17:39 Hgb 9.1 L D (11.4-16.0) gm/dL Hct 32.7 L (34.0-46.0) % MCV 78.8 L (80.0-100.0) fL MCH 21.9 L (25.0-35.0) pg MCHC 27.8 L (31.0-37.0) g/dL RDW 24.5 H (11.5-15.5) % Lymphocytes # 0.9 L (1.0-4.8) k/uL INR 1.2 H (<1.2) APTT 20.7 L (22.0-30.0) sec Chloride 110 H (98-107) mmol/L Creatinine 1.10 H (0.52-1.04) mg/dL Glucose (74-99) mg/dL POC Glucose (mg/dL) (75-99) mg/dL Alkaline Phosphatase 37 L (38-126) U/L Total Protein 5.8 L (6.3-8.2) g/dL Albumin 3.3 L (3.5-5.0) g/dL Urine Protein (Negative) Urine Mucus (None) /hpf 04/08/20 04/08/20 04/09/20 Range/Units 18:42 21:14 07:10 Hgb (11.4-16.0) gm/dL Hct (34.0-46.0) % MCV (80.0-100.0) fL MCH (25.0-35.0) pg MCHC (31.0-37.0) g/dL RDW (11.5-15.5) % Lymphocytes # (1.0-4.8) k/uL INR (<1.2) APTT (22.0-30.0) sec Chloride (98-107) mmol/L Creatinine (0.52-1.04) mg/dL Glucose (74-99) mg/dL POC Glucose (mg/dL) 141 H 113 H (75-99) mg/dL Alkaline Phosphatase (38-126) U/L Total Protein (6.3-8.2) g/dL Albumin (3.5-5.0) g/dL Urine Protein 1+ H (Negative) Urine Mucus Rare H (None) /hpf 04/09/20 04/09/20 Range/Units 07:14 07:14 Hgb 9.3 L (11.4-16.0) gm/dL Hct 33.4 L (34.0-46.0) % MCV 78.7 L (80.0-100.0) fL MCH 21.9 L (25.0-35.0) pg MCHC 27.9 L (31.0-37.0) g/dL RDW 24.7 H (11.5-15.5) % Lymphocytes # 0.9 L (1.0-4.8) k/uL INR (<1.2) APTT (22.0-30.0) sec Chloride (98-107) mmol/L Creatinine 1.08 H (0.52-1.04) mg/dL Glucose 102 H (74-99) mg/dL POC Glucose (mg/dL) (75-99) mg/dL Alkaline Phosphatase (38-126) U/L Total Protein 5.8 L (6.3-8.2) g/dL Albumin 3.4 L (3.5-5.0) g/dL Urine Protein (Negative) Urine Mucus (None) /hpf Thrombosis Risk Factor Assmnt - DVT/VTE Prophylaxis DVT/VTE Prophylaxis: Pharmacologic Prophylaxis ordered, Mechanical Prophylaxis ordered - Choose All That Apply Each Factor Represents 1 point: Obesity (BMI >25) Each Risk Factor Represents 3 Points: Age 75 years or older Other congenital or acquired thrombophilia - If yes, enter type in comment: No Thrombosis Risk Factor Assessment Total Risk Factor Score: 4 Thrombosis Risk Factor Assessment Level: Moderate Risk Assessment and Plan Assessment: Assessment and plan: 1. Acute systolic heart failure with bilateral pleural effusion left more than right. Start the patient Lasix 40 mg IV push every 12 hours, continue metoprolol 50 mg orally twice every day continue lisinopril 10 mg orally once every day, cardiology consultation, patient did have an echocardiogram a month ago and that showed ejection fraction of 3035% with mild aortic stenosis and mild tricuspid regurgitation. Pulmonary consultation for possible thoracentesis of the left side. 2. Generalized weakness likely related to medical debility due to her cardiomyopathy as well as pleural effusion. Physical therapy evaluation. 3. Bilateral pleural effusion left more than right. Consult pulmonary medicine for thoracentesis continue Lasix 40 mg IV push every 12 hours per 4. Paroxysmal atrial fibrillation. We will continue patient on metoprolol 50 mg orally twice every day as well as Xarelto 15 mg orally once every day. 5. History of coronary artery disease status post three-vessel CABG in 1995. Continue patient on metoprolol 50 mg orally twice every day as well as Lipitor 10 mg orally once every day. 6. Carotid artery disease status post carotid endarterectomy. Stable. 7. Diabetes mellitus type 2, insulin requiring. Continue Levemir 14 units at bedtime and NovoLog scale before meals and at bedtime, Tradjenta 5 mg daily. Continue Accu-Chek before each meal and at bedtime along with a sliding scale insulin. 8. Hypertension, hypertensive cardiovascular disease with accelerated hypertens ion. Continue metoprolol 50 mg orally twice every day, lisinopril 10 mg orally once every day at amlodipine 5 mg orally once every day.. 9. Hyperlipidemia. Continue Lipitor 10 mg daily. 10. Chronic vertigo. Stable. 11. Gastroesophageal reflux disease. Continue Protonix 40 mg daily. 12. DVT prophylaxis. Currently on Xarelto. 13. GI prophylaxis. Continue patient on Protonix. 14. Admitted to inpatient. Estimate a length of stay 2 midnights per 15. Patient is no code.
[2020-04-09 11:27] LABS: Glucose,Whole Blood 129 mg/dL (75-99)
--- NOTE | 2020-04-09 13:29 | P.CNPUL ---
History of Present Illness Consult date: 04/09/20 Requesting physician: Marilyn Nash Reason for consult: dyspnea, abnormal CXR/CT Chief complaint: Shortness of breath History of present illness: This is a pleasant 89-year-old female patient who follows with Dr. Nash as her primary care provider. She has a history of diabetes mellitus, hypertension, vertigo, heart disease with previous coronary artery bypass grafting in 1995 in [place], carotid artery disease with previous right-sided endarterectomy in 2016, former smoker. He was recently discharged from here for multiple issues including anaphylactic reaction due to IV iron, acute kidney injury, hyperkalemia, paroxysmal atrial fibrillation anticoagulated with Xarelto. The plan at that time was to go to [facility] into hospice care. She was however brought back to the emergency room yesterday with complaints of increasing shortness of breath, dizziness and weakness. Chest x-ray revealed a new moderate left and small right pleural effusion. Suspect congestive heart failure. She does have moderate to severely impaired left ventricular systolic function with ejection fraction 30-35%. She is seen today in consultation on the regular medical floor. She is currently awake and alert. Resting fairly comfortably in bed. Laying flat. Maintaining O2 saturation in the mid 90s on 4 L/m per nasal cannula. She's afebrile. White count 7.5. Hemoglobin 9.3. Sodium 138. Potassium 4.7. Creatinine 1.08. She's been initiated on Lasix 40 mg IV every 12 hours. Review of Systems REVIEW OF SYSTEMS: CONSTITUTIONAL: Positive for dizziness, weakness. Denies any recent significant weight loss or weight gain. EYES: Denies change in vision. EARS, NOSE, MOUTH, THROAT: Denies headaches, denies sore throat. CARDIOVASCULAR: Denies chest pain, palpitations or syncopal episodes. RESPIRATORY: Positive for shortness of breath, cough, congestion no hemoptysis. GASTROINTESTINAL: Denies change in appetite, denies abdominal pain GENITOURINARY: Denies hematuria, denies infections. MUSKULOSKELETAL: Denies pain, denies swelling. INTEGUMENTARY: Denies rash, denies eczema. NEUROLOGICAL: Denies recent memory loss, no recent seizure activity. PSYCHIATRIC: Denies anxiety, denies depression. HEMATOLOGIC/LYMPHATIC: Denies anemia, denies enlarged lymph nodes. Past Medical History Past Medical History: Coronary Artery Disease (CAD), Chest Pain / Angina, Diabetes Mellitus, Hyperlipidemia, Hypertension, Myocardial Infarction ([place]), Syncope Additional Past Medical History / Comment(s): DM type II, vertigo/weakness past 5 years and pt states she has had tests but no one knows why, weakness, gait disturbance, falls, bilateral cataracts, dehydration Last Myocardial Infarction Date:: 1995 History of Any Multi-Drug Resistant Organisms: None Reported Past Surgical History: Adenoidectomy, Coronary Bypass/CABG, Heart Cat heterization, Orthopedic Surgery, Tonsillectomy Additional Past Surgical History / Comment(s): 3 vessel CABG 1995 in [place], R carotid endartectomy 2015, ORIF L ankle d/t fracture. Past Anesthesia/Blood Transfusion Reactions: No Reported Reaction Past Psychological History: No Psychological Hx Reported Additional Psychological History / Comment(s): Pt resides alone in an apartment with her daughter living down the hallway. She has a walker and wheelchair. She no longer drives, her son takes her to appointments. Smoking Status: Former smoker Past Alcohol Use History: None Reported Additional Past Alcohol Use History / Comment(s): Patient smoked one pack per day for 60 years or more and quit in 2015. She denies any alcohol use, marijuana or street drug use. Past Drug Use History: None Reported Additional Drug Use History / Comment(s): Patient smoked for 60+ years. Quit in 2015 - Past Family History Mother Family Medical History: No Reported History Additional Family Medical History / Comment(s): Mother at age 82 from old age. Father Family Medical History: No Reported History Additional Family Medical History / Comment(s): Father from old age and patient does not recall his age or any medical problems. Son(s) Family Medical History: Cancer Additional Family Medical History / Comment(s): Patient has one son with history of throat cancer in remission. Patient has one daughter with no major medical problems. Patient does not have any brothers or sisters. Medications and Allergies Home Medications Medication Instructions Recorded Confirmed Type Insulin Detemir [Levemir Flextouch] 14 units SQ HS 03/02/20 04/08/20 History ALPRAZolam [Xanax] 0.5 mg PO BID 04/08/20 04/08/20 History Cholecalciferol [Vitamin D3 (25 2,000 unit PO DAILY 04/08/20 04/08/20 History Mcg = 1000 Iu)] Hydrocodone/Acetaminophen [[place] 1 tab PO TID PRN 04/08/20 04/08/20 History 5-325] Ipratropium-Albuterol Nebulize 3 ml INHALATION RT-QID PRN 04/08/20 04/08/20 History [Duoneb 0.5 mg-3 mg/3 ml Soln] Linagliptin [Tradjenta] 5 mg PO DAILY 04/08/20 04/08/20 History Lisinopril [Prinivil] 10 mg PO HS 04/08/20 04/08/20 History Lubiprostone [Amitiza] 24 mcg PO BID PRN 04/08/20 04/08/20 History Metoprolol Tartrate [Lopressor] 50 mg PO BID 04/08/20 04/08/20 History Pantoprazole [Protonix] 40 mg PO HS 04/08/20 04/08/20 History Polyethylene Glycol 3350 [Miralax] 17 gm PO DAILY 04/08/20 04/08/20 History Rivaroxaban [Xarelto] 15 mg PO HS 04/08/20 04/08/20 History Simvastatin [Zocor] 20 mg PO HS 04/08/20 04/08/20 History amLODIPine [Norvasc] 5 mg PO DAILY 04/08/20 04/08/20 History Allergies Allergy/AdvReac Type Severity Reaction Status Date / Time zolpidem [From Ambien] AdvReac Hallucinati Verified 04/08/20 22:15 ons Physical Exam Vitals: Vital Signs Temp Pulse Pulse Resp BP BP BP 04/09/20 12:47 98.1 F 66 17 185/76 04/09/20 07:45 79 04/09/20 07:35 77 04/09/20 04:41 97.6 F 75 18 198/84 04/08/20 20:47 97.6 F 66 17 184/66 04/08/20 20:16 98.3 F 64 18 172/59 04/08/20 16:56 99 F 70 18 193/66 Pulse Ox 04/09/20 12:47 95 04/09/20 07:45 04/09/20 07:35 94 L 04/09/20 04:41 95 04/08/20 20:47 96 04/08/20 20:16 99 04/08/20 16:56 98 Intake and Output 04/08/20 04/09/20 04/09/20 22:59 06:59 14:59 Intake Total 100 Balance 100 Intake: Oral 100 Other: Voiding Method Diaper Bedpan Incontinent # Voids 1 1 Weight 70 kg 68.5 kg GENERAL EXAM: Alert, frail 89-year-old female patient on 4 L nasal cannula, comfortable in no apparent distress. HEAD: Normocephalic. EYES: Normal reaction of pupils, equal size. NOSE: Clear with pink turbinates. THROAT: No erythema or exudates. NECK: No masses, no JVD. CHEST: No chest wall deformity. LUNGS: Equal air entry with basilar crackles left greater than right. Dullness. CVS: S1 and S2 normal with no audible murmur, regular rhythm. ABDOMEN: No hepatosplenomegaly, normal bowel sounds, no guarding or rigidity. SPINE: No scoliosis or deformity SKIN: No rashes CENTRAL NERVOUS SYSTEM: No focal deficits, tone is normal in all 4 extremities. EXTREMITIES: There is no peripheral edema. No clubbing, no cyanosis. Peripheral pulses are intact. Results - Laboratory Findings CBC and BMP: 04/09/20 07:14 04/09/20 07:14 PT/INR, D-dimer PT 11.9 sec (9.0-12.0) 04/08/20 17:39 INR 1.2 (<1.2) H 04/08/20 17:39 Abnormal lab findings: Abnormal Labs 04/08/20 04/08/20 04/08/20 17:39 17:39 17:39 Hgb 9.1 L D Hct 32.7 L MCV 78.8 L MCH 21.9 L MCHC 27.8 L RDW 24.5 H Lymphocytes # 0.9 L INR 1.2 H APTT 20.7 L Chloride 110 H Creatinine 1.10 H Glucose POC Glucose (mg/dL) Alkaline Phosphatase 37 L Total Protein 5.8 L Albumin 3.3 L Urine Protein Urine Mucus 04/08/20 04/08/20 04/09/20 18:42 21:14 07:10 Hgb Hct MCV MCH MCHC RDW Lymphocytes # INR APTT Chloride Creatinine Glucose POC Glucose (mg/dL) 141 H 113 H Alkaline Phosphatase Total Protein Albumin Urine Protein 1+ H Urine Mucus Rare H 04/09/20 04/09/20 04/09/20 07:14 07:14 11:25 Hgb 9.3 L Hct 33.4 L MCV 78.7 L MCH 21.9 L MCHC 27.9 L RDW 24.7 H Lymphocytes # 0.9 L INR APTT Chloride Creatinine 1.08 H Glucose 102 H POC Glucose (mg/dL) 129 H Alkaline Phosphatase Total Protein 5.8 L Albumin 3.4 L Urine Protein Urine Mucus - Diagnostic Findings Chest x-ray: image reviewed Assessment and Plan Assessment: 1 Acute on chronic hypoxemic respiratory failure secondary to an acute exacerbation of chronic systolic congestive heart failure with ejection fraction 30-35%. 2 Moderate left and small right pleural effusion secondary to above 3 History of coronary artery disease with previous coronary artery bypass g [place] 4 History of carotid artery disease with previous right-sided carotid endarterectomy 5 Diabetes mellitus 6 Hypertension 7 Hyperlipidemia 8 Vertigo 9 Prior smoking history 10 Poor overall functional performance based on the above-mentioned multiple comorbidities Plan: The patient was seen and evaluated by Dr. Alas Chest x-ray and labs reviewed Continue with diuretics Repeat chest x-ray in a.m. If no significant improvement in the effusions, we'll consider a thoracentesis DO NOT RESUSCITATE/DO NOT INTUBATE CODE STATUS We'll continue to follow make further recommendations based on her clinical status I, the cosigning physician, performed a history & physical examination of the patient. Lungs sounds with bilateral basilar crackles left greater than right. Maintaining good O2 saturations in the 90s on 4 L/m per nasal cannula. I discussed the assessment and plan of care with my nurse practitioner, Trista Ramírez. I attest to the above consultation as dictated by her. Time with Patient: Greater than 30
[2020-04-09 17:05] LABS: Glucose,Whole Blood 132 mg/dL (75-99)
[2020-04-09 20:12] LABS: Glucose,Whole Blood 127 mg/dL (75-99)
[2020-04-09] MEDS: FUROSEMIDE 10 MG/ML 4 ML VIAL IV SCH (20:19)
[2020-04-09] MEDS: INSULIN DETEMIR (LEVEMIR) 100 UNIT/ML SYR SQ SCH (20:19)
[2020-04-09] MEDS: RIVAROXABAN 15 MG TAB PO SCH (20:19)
[2020-04-09] MEDS: lisinopriL 10 MG TAB PO SCH (20:19)
[2020-04-09] MEDS: PANTOPRAZOLE 40 MG TABLET PO SCH (20:19)
[2020-04-09] MEDS: ATORVASTATIN 10 MG TAB PO SCH (20:19)
[2020-04-10] MEDS: HYDROcodone/APAP 5-325MG 1 EACH TAB PO PRN ×2 (01:28→17:19)
[2020-04-10] MEDS: MORPHINE SULFATE 2 MG/ML SYRINGE IVP PRN (01:59)
[2020-04-10 05:34] LABS: Anisocytosis Moderate; Basophils % (A) 0 %; Eosinophils # (A) 0.2 k/uL (0-0.7); Eosinophils % (A) 2 %; HCT 36.8 % (34.0-46.0); HGB 10.5 gm/dL (11.4-16.0); Hypochromasia Marked; Lymphocytes # (A) 0.9 k/uL (1.0-4.8); Lymphocytes % (A) 9 %; MCH 22.5 pg (25.0-35.0); MCHC 28.5 g/dL (31.0-37.0); MCV 78.9 fL (80.0-100.0); Mean Platelet Volume 7.6; Microcytosis Moderate; Monocytes # (A) 0.7 k/uL (0-1.0); Monocytes % (A) 7 %; Neutrophils # (A) 7.6 k/uL (1.3-7.7); Neutrophils % (A) 80 %; Platelet Count 295 k/uL (150-450); RBC 4.67 m/uL (3.80-5.40); RDW 23.7 % (11.5-15.5); WBC 9.4 k/uL (3.8-10.6)
[2020-04-10 05:53] LABS: Albumin 3.6 g/dL (3.5-5.0); Calcium 9.2 mg/dL (8.4-10.2); Magnesium 1.9 mg/dL (1.6-2.3); Phosphorus 4.3 mg/dL (2.5-4.5); Potassium 4.3 mmol/L (3.5-5.1); Total Bilirubin 1.4 mg/dL (0.2-1.3); Total Protein 6.1 g/dL (6.3-8.2)
[2020-04-10 07:17] LABS: Glucose,Whole Blood 120 mg/dL (75-99)
[2020-04-10] MEDS: ALPRAZolam 0.5 MG TAB PO SCH ×2 (10:08→20:28)
[2020-04-10] MEDS: polyethylene glycoL 3350 17 GM POWD.PACK PO SCH (10:09)
[2020-04-10] MEDS: METOPROLOL TARTRATE 50 MG TAB PO SCH ×2 (10:09→20:29)
[2020-04-10] MEDS: CHOLECALCIFEROL 1,000 UNIT TAB PO SCH (10:09)
[2020-04-10] MEDS: INSULIN ASPART (NovoLOG) 100 UNIT/ML VIAL SQ SCH ×4 (10:09→20:30)
[2020-04-10] MEDS: FUROSEMIDE 10 MG/ML 4 ML VIAL IV SCH ×2 (10:09→15:57)
[2020-04-10] MEDS: amLODIPine 5 MG TAB PO SCH (10:09)
[2020-04-10] MEDS: LINAGLIPTIN 5 MG TABLET PO SCH (10:10)
--- NOTE | 2020-04-10 11:16 | P.PN ---
Subjective Progress Note Date: 04/10/20 Principal diagnosis: Acute on chronic hypoxemic respiratory failure secondary to acute exacerbation of systolic CHF, bilateral pleural effusions This is a pleasant 89-year-old female patient who follows with Dr. Nash as her primary care provider. She has a history of diabetes mellitus, hypertension, vertigo, heart disease with previous coronary artery bypass grafting in 1995 in [place], carotid artery disease with previous right-sided endarterectomy in 2016, former smoker. He was recently discharged from here for multiple issues including anaphylactic reaction due to IV iron, acute kidney injury, hyperkalemia, paroxysmal atrial fibrillation anticoagulated with Xarelto. The plan at that time was to go to [facility] into hospice care. She was however brought back to the emergency room yesterday with complaints of increasing shortness of breath, dizziness and weakness. Chest x-ray revealed a new moderate left and small right pleural effusion. Suspect congestive heart failure. She does have moderate to severely impaired left ventricular systolic function with ejection fraction 30-35%. She is seen today in consultation on the regular medical floor. She is currently awake and alert. Resting fairly comfortably in bed. Laying flat. Maintaining O2 saturation in the mid 90s on 4 L/m per nasal cannula. She's afebrile. White count 7.5. Hemoglobin 9.3. Sodium 138. Potassium 4.7. Creatinine 1.08. She's been initiated on Lasix 40 mg IV every 12 hours. On 04/10/2020 patient seen in follow-up on general medical oncology floor, she is resting comfortably in bed, she is satting 95% on room air, hemodynamics are stable, she is afebrile, she states she is feeling better, breathing easier. She remains on IV diuretics with Lasix 40 mg every 12 hours, she is in -3.5 liters over last 24 hours according to the weight. Lung sounds reveal slightly diminished breath sounds over left lower lobe, overall lung sounds are clear, no rhonchi or wheezing, today's labs have been reviewed, showing white blood cell count 9.4, hemoglobin is 10.5, sodium is 135, potassium is 4.3, chloride is 99, CO2 is 31, BUN is 12, creatinine is 1.16. No fever or chills, no complaints of chest pain. No cough or congestion. Objective - Vital Signs Vital signs: Vital Signs Temp 97.7 F 04/10/20 04:00 Pulse 78 04/10/20 04:00 Resp 18 04/10/20 04:00 BP 166/69 04/10/20 04:00 Pulse Ox 95 04/10/20 04:00 Intake & Output 04/09/20 04/10/20 04/10/20 18:59 06:59 18:59 Intake Total 150 890 Output Total 600 Balance 150 290 Weight 65 kg Intake: Oral 150 890 Output: Urine 600 Other: Voiding Method Bedpan Bedpan Bedpan # Voids 1 3 # Bowel Movements 1 - Exam GENERAL EXAM: Alert, very pleasant 89-year-old white female, on 4 L of oxygen with a pulse ox of 95-96% comfortable in no apparent distress. HEAD: Normocephalic/atraumatic. EYES: Normal reaction of pupils, equal size. Conjunctiva pink, sclera white. NOSE: Clear with pink turbinates. THROAT: No erythema or exudates. NECK: No masses, no JVD, no thyroid enlargement, no adenopathy. CHEST: No chest wall deformity. Symmetrical expansion. LUNGS: Slightly diminished breath sounds over left lower lobe, otherwise lung sounds are clear, no rhonchi or wheezing CVS: Regular rate and rhythm, normal S1 and S2, no gallops, no murmurs, no rubs ABDOMEN: Soft, nontender. No hepatosplenomegaly, normal bowel sounds, no guarding or rigidity. EXTREMITIES: No clubbing, no edema, no cyanosis, 2+ pulses and upper and lower extremities. MUSCULOSKELETAL: Muscle strength and tone normal. SPINE: No scoliosis or deformity SKIN: No rashes CENTRAL NERVOUS SYSTEM: Alert and oriented -3. No focal deficits, tone is normal in all 4 extremities. PSYCHIATRIC: Alert and oriented -3. Appropriate affect. Intact judgment and insight. - Labs CBC & Chem 7: 04/10/20 05:25 04/10/20 05:25 Labs: Abnormal Lab Results - Last 24 Hours (Table) 04/09/20 04/09/20 04/09/20 Range/Units 11:25 17:04 20:09 Hgb (11.4-16.0) gm/dL MCV (80.0-100.0) fL MCH (25.0-35.0) pg MCHC (31.0-37.0) g/dL RDW (11.5-15.5) % Lymphocytes # (1.0-4.8) k/uL Sodium (137-145) mmol/L Carbon Dioxide (22-30) mmol/L Creatinine (0.52-1.04) mg/dL Glucose (74-99) mg/dL POC Glucose (mg/dL) 129 H 132 H 127 H (75-99) mg/dL Total Bilirubin (0.2-1.3) mg/dL Total Protein (6.3-8.2) g/dL 04/10/20 04/10/20 04/10/20 Range/Units 05:25 05:25 07:08 Hgb 10.5 L (11.4-16.0) gm/dL MCV 78.9 L (80.0-100.0) fL MCH 22.5 L (25.0-35.0) pg MCHC 28.5 L (31.0-37.0) g/dL RDW 23.7 H (11.5-15.5) % Lymphocytes # 0.9 L (1.0-4.8) k/uL Sodium 135 L (137-145) mmol/L Carbon Dioxide 31 H (22-30) mmol/L Creatinine 1.16 H (0.52-1.04) mg/dL Glucose 150 H (74-99) mg/dL POC Glucose (mg/dL) 120 H (75-99) mg/dL Total Bilirubin 1.4 H (0.2-1.3) mg/dL Total Protein 6.1 L (6.3-8.2) g/dL Assessment and Plan Plan: Assessment: 1 Acute on chronic hypoxemic respiratory failure secondary to an acute exacerba tion of chronic systolic congestive heart failure with ejection fraction 30-35%. 2 Moderate left and small right pleural effusion secondary to above 3 History of coronary artery disease with previous coronary artery bypass grafting 4 History of carotid artery disease with previous right-sided carotid endarterectomy 5 Diabetes mellitus 6 Hypertension 7 Hyperlipidemia 8 Vertigo 9 Prior smoking history 10 Poor overall functional performance based on the above-mentioned multiple comorbidities Plan: Continue IV diuretics for another 24 hours, repeat chest x-ray in the morning, wean FiO2, patient is feeling better, will continue with medical treatment, no plans for thoracentesis at this time. If chest x-ray shows improvement tomorrow we'll consider discharge home I performed a history & physical examination of the patient and discussed their management with my nurse practitioner, Michelle Driscoll. I reviewed the nurse practitioner's note and agree with the documented findings and plan of care. Lung sounds are positive for diminished breath sounds. The findings and the impression was discussed with the patient. I attest to the documentation by the nurse practitioner. Time with Patient: Less than 30
[2020-04-10 11:28] LABS: Glucose,Whole Blood 122 mg/dL (75-99)
[2020-04-10] MEDS ORDERED: METOPROLOL TARTRATE 50 MG TAB PO STA (14:22)
--- NOTE | 2020-04-10 14:31 | P.PN ---
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, patient was recently hospitalized at [facility] back in February 2020 where she was admitted for increased dizziness and lightheadedness and underwent upper and lower endoscopy that showed initially Schatzki's ring with diverticulosis and 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 that was treated with argon treatment, patient also during the last hospital admission went into atrial fibrillation with rapid ventricular response she ended up with acute systolic heart failure underwent echocardiogram that showed ejection fraction of 30-35%, with a mild aortic stenosis and aortic sclerosis, no mitral regur gitation but there was mild tricuspid regurgitation, patient was treated with the heparin drip and subsequently she was switched back to Xarelto 50 mg orally once every day, patient became quite short of breath and she was requiring BiPAP treatment however she elected to go into hospice care she went back to [facility] under hospice care while she was at [facility] she elected to sign herself off of hospice care and she want medical care at that time subsequently her medications were restarted and the patient was treated medically she was just discharged from [facility] 24 hours ago and she went to her daughter's house however she became quite weak and extreme short of breath, she ended up coming to the emergency department at [facility] had a chest x-ray that showed left more than right pleural effusion and she was hypertensive, patient will be given Lasix 40 mg IV push every 12 hours, she will be seen in consultation by cardiology as well as by pulmonary for possible thoracentesis in the left side. 04/10: Patient has been seen and followed by pulmonary medicine with no plan for thoracentesis and continued IV diuretics. Patient has had good urine output over the past 24 hours. Repeat blood work reveals hemoglobin of 10.5. Sodium 135, CO2 31, BUN 12 and creatinine 1.16. Potassium 4.3, blood sugars running between 120 and 150. Patient has been afebrile, heart rate 64, blood pressure 110/65, pulse ox 96% on 4 L nasal cannula. Patient denies any chest pain or shortness of breath. Call from nursing staff in the afternoon for A. fib with RVR 130s and 140 bpm. Patient ordered for EKG, 1 extra dose of Lopressor 50 mg and cardiology consult. Patient is are on Xarelto chronically. Consult was added for Dr. Keith regarding patient's complaint of left thigh pain. Objective - Vital Signs Vital signs: Vital Signs Temp 97.7 F 04/10/20 04:00 Pulse 78 04/10/20 04:00 Resp 18 04/10/20 04:00 BP 166/69 04/10/20 04:00 Pulse Ox 95 04/10/20 04:00 Intake & Output 04/09/20 04/10/20 04/10/20 18:59 06:59 18:59 Intake Total 150 890 Output Total 600 Balance 150 290 Weight 65 kg Intake: Oral 150 890 Output: Urine 600 Other: Voiding Method Bedpan Bedpan # Voids 1 3 # Bowel Movements 1 - Exam Review of Systems Constitutional: Reports chronic pain, Reports fatigue, Reports malaise, Reports weakness, Denies anorexia, Denies weight gain, Denies weight loss Eyes: denies blurred vision, denies bulging eye, denies decreased vision, reports left eye pain Ears: bilateral: decreased hearing Ears, nose, mouth and throat: Denies dysphagia, Denies neck lump, Denies sore throat Cardiovascular: Reports decreased exercise tolerance, Reports dyspnea on exe rtion, Reports shortness of breath, Denies chest pain, Denies lightheadedness, Denies rapid heart beat, Denies syncope Gastrointestinal: Reports loss of appetite, Denies abdominal pain, Denies BRBPR, Denies excessive gas, Denies heartburn, Denies melena, Denies nausea, Denies vomiting Genitourinary: Reports nocturia, Denies dysuria Menstruation: Reports postmenopausal Musculoskeletal: Reports atrophy, Reports gait dysfunction Musculoskeletal: absent: ankle pain, ankle stiffness, ankle swelling, elbow pain, elbow stiffness, elbow swelling, foot pain, foot stiffness, foot swelling, hand pain, hand stiffness, hand swelling, hip pain, hip stiffness, hip swelling, knee pain, knee stiffness, knee swelling, shoulder pain, shoulder stiffness, shoulder swelling, wrist pain, wrist stiffness, wrist swelling Integumentary: Denies pruritus, Denies rash Neurological: Reports balance difficulties, Reports gait dysfunction, Reports weakness Psychiatric: Reports anxiety, Denies depression, Denies sadness/tearfulness, Denies sleep disturbances, Denies suicidal ideation Endocrine: Denies fatigue, Denies weight change Physical examination: HEENT: Head is atraumatic, normocephalic, pupils were equal round reactive to light and accommodations, extraocular muscle movement were intact. Oral mucous membranes are slightly dry Neck: Supple, no JVP, decreased carotid upstroke bilaterally. Chest: Decreased breath sounds at the bases, decreased tactile fremitus at the lower two thirds of the left lung and one third of the right lung secondary to pleural effusion, there is no chest wall tenderness no intercostal retractions there is no expiratory wheezes. Heart: First heart sound is depressed, second heart sounds normal, there is systolic murmur 2/6 located at the right second intercostal space related to the base of the neck per Abdomen: Soft, nontender, nondistended, positive bowel sounds. Extremities: No pedal edema bilaterally, dorsalis pedis palpable bilaterally. No calf tenderness. Neurologic examination: Patient is awake and alert and oriented 3. No focal neuro deficits. Cranial nerves III-12 appear grossly intact. - Labs CBC & Chem 7: 04/10/20 05:25 04/10/20 05:25 Labs: Abnormal Lab Results - Last 24 Hours (Table) 04/09/20 04/09/20 04/09/20 Range/Units 07:14 07:14 11:25 Hgb 9.3 L (11.4-16.0) gm/dL Hct 33.4 L (34.0-46.0) % MCV 78.7 L (80.0-100.0) fL MCH 21.9 L (25.0-35.0) pg MCHC 27.9 L (31.0-37.0) g/dL RDW 24.7 H (11.5-15.5) % Lymphocytes # 0.9 L (1.0-4.8) k/uL Sodium (137-145) mmol/L Carbon Dioxide (22-30) mmol/L Creatinine 1.08 H (0.52-1.04) mg/dL Glucose 102 H (74-99) mg/dL POC Glucose (mg/dL) 129 H (75-99) mg/dL Total Bilirubin (0.2-1.3) mg/dL Total Protein 5.8 L (6.3-8.2) g/dL Albumin 3.4 L (3.5-5.0) g/dL 04/09/20 04/09/20 04/10/20 Range/Units 17:04 20:09 05:25 Hgb 10.5 L (11.4-16.0) gm/dL Hct (34.0-46.0) % MCV 78.9 L (80.0-100.0) fL MCH 22.5 L (25.0-35.0) pg MCHC 28.5 L (31.0-37.0) g/dL RDW 23.7 H (11.5-15.5) % Lymphocytes # 0.9 L (1.0-4.8) k/uL Sodium (137-145) mmol/L Carbon Dioxide (22-30) mmol/L Creatinine (0.52-1.04) mg/dL Glucose (74-99) mg/dL POC Glucose (mg/dL) 132 H 127 H (75-99) mg/dL Total Bilirubin (0.2-1.3) mg/dL Total Protein (6.3-8.2) g/dL Albumin (3.5-5.0) g/dL 04/10/20 04/10/20 Range/Units 05:25 07:08 Hgb (11.4-16.0) gm/dL Hct (34.0-46.0) % MCV (80.0-100.0) fL MCH (25.0-35.0) pg MCHC (31.0-37.0) g/dL RDW (11.5-15.5) % Lymphocytes # (1.0-4.8) k/uL Sodium 135 L (137-145) mmol/L Carbon Dioxide 31 H (22-30) mmol/L Creatinine 1.16 H (0.52-1.04) mg/dL Glucose 150 H (74-99) mg/dL POC Glucose (mg/dL) 120 H (75-99) mg/dL Total Bilirubin 1.4 H (0.2-1.3) mg/dL Total Protein 6.1 L (6.3-8.2) g/dL Albumin (3.5-5.0) g/dL Assessment and Plan Plan: 1. Acute systolic heart failure with bilateral pleural effusion left more than right. Start the patient Lasix 40 mg IV push every 12 hours, continue metoprolol 50 mg orally twice every day continue lisinopril 10 mg orally once every day, cardiology consultation, patient did have an echocardiogram a month ago and that showed ejection fraction of 3035% with mild aortic stenosis and mild tricuspid regurgitation. Pulmonary consultation is appreciated. No plan for thoracentesis at this time. 2. Generalized weakness likely related to medical debility due to her cardiomyopathy as well as pleural effusion. Physical therapy evaluation. 3. Bilateral pleural effusion left more than right. Consult pulmonary medicine for thoracentesis continue Lasix 40 mg IV push every 12 hours per 4. Paroxysmal atrial fibrillation with episode of RVR. We will continue patient on metoprolol 50 mg orally twice every day, extra dose of Lopressor 50 mg and continue Xarelto 15 mg orally once every day. Cardiology consult. 5. History of coronary artery disease status post three-vessel CABG in 1995. Continue patient on metoprolol 50 mg orally twice every day as well as Lipitor 10 mg orally once every day. 6. Carotid artery disease status post carotid endarterectomy. Stable. 7. Diabetes mellitus type 2, insulin requiring. Continue Levemir 14 units at bedtime and NovoLog scale before meals and at bedtime, Tradjenta 5 mg daily. Continue Accu-Chek before each meal and at bedtime along with a sliding scale insulin. 8. 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 Continue metoprolol 50 mg orally twice every day, lisinopril 10 mg orally once every day at amlodipine 5 mg orally once every day.. 9. Hyperlipidemia. Continue Lipitor 10 mg daily. 10. Chronic vertigo. Stable. 11. Gastroesophageal reflux disease. Continue Protonix 40 mg daily. 12. DVT prophylaxis. Currently on Xarelto. 13. GI prophylaxis. Continue patient on Protonix. 14. COVID-19 infection not present. 15. Patient is no code. Discharge plan: To be determined Impression and plan of care have been directed as dictated by the signing physician. Nataliia Alejo nurse practitioner acting as scribe for signing physician.
[2020-04-10] MEDS ORDERED: SODIUM CHLORIDE 0.9% 500 ML 500 ML IV ONE (15:55)
--- NOTE | 2020-04-10 16:17 | CONS ---
CONSULTATION CHIEF COMPLAINT: Pain, left eye, for a few days' duration. HISTORY OF PRESENT ILLNESS: The patient was admitted to the hospital for weakness and heart failure. The patient is complaining of pain in the left eye which lasts for a few minutes, more than half an hour, and then resolves by itself. This happened last night specifically. Medical history reviewed. Medications reviewed. Review of systems done. Patient has diabetes and heart failure. EYE EXAMINATION,: VISION: 20/25 both eyes. Extraocular motility is full. Pupils were equal and reactive. Lens was 2+ NS. Retina exam deferred. Intra-ocular pressure was 17 mmHg, both eyes. Left eye showed no iritis, no ulcer, no redness. ASSESSMENT: 1. Temporal arteritis. This was ruled out after doing a sedimentation rate and palpating the temporal arteries. There was no tenderness on palpation. 2. Ocular ischemia, which is transient ischemia. This could be the reason for the throbbing pain and the pain in the left eye. This goes with diabetic eye disease. 3. Ocular pain. PLAN: I will start her on Voltaren eye drops twice a day and I will see her in the office in a week. MMODL / IJN: [id number] /
[2020-04-10] MEDS ORDERED: DILTIAZEM 125 MG in SODIUM CHLORIDE 0.9% 100 ML IV SCH (17:00)
[2020-04-10 17:09] LABS: Glucose,Whole Blood 107 mg/dL (75-99)
[2020-04-10] MEDS: DICLOFENAC 0.1% OPHTH SOLN 2.5 ML BTL LEFT EYE SCH ×2 (18:35→21:21)
[2020-04-10] MEDS: RIVAROXABAN 15 MG TAB PO SCH (20:28)
[2020-04-10] MEDS: ATORVASTATIN 10 MG TAB PO SCH (20:28)
[2020-04-10] MEDS: PANTOPRAZOLE 40 MG TABLET PO SCH (20:28)
[2020-04-10] MEDS: lisinopriL 10 MG TAB PO SCH (20:28)
[2020-04-10 20:47] LABS: Glucose,Whole Blood 132 mg/dL (75-99)
[2020-04-10] MEDS: INSULIN DETEMIR (LEVEMIR) 100 UNIT/ML SYR SQ SCH (20:48)
[2020-04-10] MEDS ORDERED: DICLOFENAC 0.1% OPHTH SOLN 2.5 ML BTL LEFT EYE SCH (21:00)
[2020-04-11 05:56] LABS: Glucose,Whole Blood 114 mg/dL (75-99)
[2020-04-11] MEDS: INSULIN ASPART (NovoLOG) 100 UNIT/ML VIAL SQ SCH ×4 (05:59→21:08)
[2020-04-11 06:26] LABS: Glucose,Whole Blood 117 mg/dL (75-99)
--- NOTE | 2020-04-11 07:42 | P.PN ---
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, patient was recently hospitalized at [facility] back in February 2020 where she was admitted for increased dizziness and lightheadedness and underwent upper and lower endoscopy that showed initially Schatzki's ring with diverticulosis and 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 that was treated with argon treatment, patient also during the last hospital admission went into atrial fibrillation with rapid ventricular response she ended up with acute systolic heart failure underwent echocardiogram that showed ejection fraction of 30-35%, with a mild aortic stenosis and aortic sclerosis, no mitral regur gitation but there was mild tricuspid regurgitation, patient was treated with the heparin drip and subsequently she was switched back to Xarelto 50 mg orally once every day, patient became quite short of breath and she was requiring BiPAP treatment however she elected to go into hospice care she went back to [facility] under hospice care while she was at [facility] she elected to sign herself off of hospice care and she want medical care at that time subsequently her medications were restarted and the patient was treated medically she was just discharged from [facility] 24 hours ago and she went to her daughter's house however she became quite weak and extreme short of breath, she ended up coming to the emergency department at [facility] had a chest x-ray that showed left more than right pleural effusion and she was hypertensive, patient will be given Lasix 40 mg IV push every 12 hours, she will be seen in consultation by cardiology as well as by pulmonary for possible thoracentesis in the left side. 04/10: Patient has been seen and followed by pulmonary medicine with no plan for thoracentesis and continued IV diuretics. Patient has had good urine output over the past 24 hours. Repeat blood work reveals hemoglobin of 10.5. Sodium 135, CO2 31, BUN 12 and creatinine 1.16. Potassium 4.3, blood sugars running between 120 and 150. Patient has been afebrile, heart rate 64, blood pressure 110/65, pulse ox 96% on 4 L nasal cannula. Patient denies any chest pain or shortness of breath. Call from nursing staff in the afternoon for A. fib with RVR 130s and 140 bpm. Patient ordered for EKG, 1 extra dose of Lopressor 50 mg and cardiology consult. Patient is are on Xarelto chronically. Consult was added for Dr. Keith regarding patient's complaint of left thigh pain. 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 Recommendations are for Voltaren eyedrops twice daily and follow up with him in the office in 1 week. Yesterday afternoon, patient developed A. fib with RVR in the 140s. Patient was ordered for additional dose of metoprolol and cardiology consult. Patient was transferred to the selective care unit. Patient has been stable. He she was subsequently started on Cardizem drip and transition to normal sinus rhythm around midnight. Patient denies any new complaints today. I pain seems to be better. She states she is angry because she is sick. Discussed discharge planning is PT and OT have recommended subacute rehab. manager business has arranged be taken home care. Patient is willing to go back to [facility] for several weeks of subacute rehab. She has been afebrile, heart rate currently 67, blood pressure 120/58, pulse ox 95% on 4 L nasal cannula. Blood sugars run between 114 1132. Anticipate she will be ready for discharge tomorrow. Objective - Vital Signs Vital signs: Vital Signs Temp 98 F 04/11/20 04:00 Pulse 67 04/11/20 04:00 Resp 18 04/11/20 04:00 BP 120/58 04/11/20 04:00 Pulse Ox 95 04/11/20 04:00 Intake & Output 04/10/20 04/11/20 04/11/20 18:59 06:59 18:59 Other: Voiding Method Bedpan Bedpan # Voids 1 1 - Exam Review of Systems Constitutional: Reports chronic pain, Reports fatigue, Reports malaise, Reports weakness, Denies anorexia, Denies weight gain, Denies weight loss Eyes: denies blurred vision, denies bulging eye, denies decreased vision, reports left eye pain Ears: bilateral: decreased hearing Ears, nose, mouth and throat: Denies dysphagia, Denies neck lump, Denies sore throat Cardiovascular: Reports decreased exercise tolerance, Reports dyspnea on exert ion, denies shortness of breath, Denies chest pain, Denies lightheadedness, Denies rapid heart beat, Denies syncope Gastrointestinal: Reports loss of appetite, Denies abdominal pain, Denies BRBPR, Denies excessive gas, Denies heartburn, Denies melena, Denies nausea, Denies v omiting Genitourinary: Reports nocturia, Denies dysuria Menstruation: Reports postmenopausal Musculoskeletal: Reports atrophy, Reports gait dysfunction Musculoskeletal: absent: ankle pain, ankle stiffness, ankle swelling, elbow pain, elbow stiffness, elbow swelling, foot pain, foot stiffness, foot swelling, hand pain, hand stiffness, hand swelling, hip pain, hip stiffness, hip swelling, knee pain, knee stiffness, knee swelling, shoulder pain, shoulder stiffness, shoulder swelling, wrist pain, wrist stiffness, wrist swelling Integumentary: Denies pruritus, Denies rash Neurological: Reports balance difficulties, Reports gait dysfunction, Reports weakness Psychiatric: Reports anxiety, Denies depression, Denies sadness/tearfulness, Denies sleep disturbances, Denies suicidal ideation Endocrine: Denies fatigue, Denies weight change Physical examination: GEN: This is an 89-year-old female. She is resting in bed and appears to be comfortable and in no acute distress. HEENT: Head is atraumatic, normocephalic, pupils were equal round reactive to light and accommodations, extraocular muscle movement were intact. Oral mucous membranes are slightly dry Neck: Supple, no JVP, decreased carotid upstroke bilaterally. Chest: Decreased breath sounds at the bases, decreased tactile fremitus at the lower two thirds of the left lung and one third of the right lung secondary to pleural effusion, there is no chest wall tenderness no intercostal retractions there is no expiratory wheezes. Heart: First heart sound is depressed, second heart sounds normal, there is systolic murmur 2/6 located at the right second intercostal space related to the base of the neck per Abdomen: Soft, nontender, nondistended, positive bowel sounds. Extremities: No pedal edema bilaterally, dorsalis pedis palpable bilaterally. No calf tenderness. Neurologic examination: Patient is awake and alert and oriented 3. No focal neuro deficits. Cranial nerves III-12 appear grossly intact. - Labs CBC & Chem 7: 04/10/20 05:25 04/10/20 05:25 Labs: Abnormal Lab Results - Last 24 Hours (Table) 04/10/20 04/10/20 04/10/20 Range/Units 07:08 11:12 17:07 POC Glucose (mg/dL) 120 H 122 H 107 H (75-99) mg/dL 04/10/20 04/11/20 04/11/20 Range/Units 20:29 05:55 06:24 POC Glucose (mg/dL) 132 H 114 H 117 H (75-99) mg/dL Assessment and Plan Plan: 1. Acute systolic heart failure with bilateral pleural effusion left more than right. Continue Lasix 40 mg IV push every 12 hours, continue metoprolol 50 mg orally twice every day continue lisinopril 10 mg orally once every day, cardiology consultation, patient did have an echocardiogram a month ago and that showed ejection fraction of 30-35% with mild aortic stenosis and mild tricuspid regurgitation. Pulmonary consultation is appreciated. No plan for thoracentesis at this time. 2. Generalized weakness likely related to medical debility due to her cardiomyopathy as well as pleural effusion. Physical therapy evaluation. 3. Bilateral pleural effusion left more than right. Consult pulmonary medicine for thoracentesis continue Lasix 40 mg IV push every 12 hours per 4. Paroxysmal atrial fibrillation with episode of RVR. We will continue patient on metoprolol 50 mg orally twice every day, extra dose of Lopressor 50 mg was given yesterday and patient required Cardizem drip subsequently converted to sinus rhythmand continue Xarelto 15 mg orally once every day. Cardiology consult. 5. History of coronary artery disease status post three-vessel CABG in 1995. Continue patient on metoprolol 50 mg orally twice every day as well as Lipitor 10 mg orally once every day. 6. Carotid artery disease status post carotid endarterectomy. Stable. 7. Diabetes mellitus type 2, insulin requiring. Continue Levemir 14 units at bedtime and NovoLog scale before meals and at bedtime, Tradjenta 5 mg daily. Continue Accu-Chek before each meal and at bedtime along with a sliding scale insulin. 8. Hypertension, hypertensive cardiovascular disease with accelerated hy pertension. Continue metoprolol 50 mg orally twice every day, lisinopril 10 mg orally once every day at amlodipine 5 mg orally once every day.. 9. Hyperlipidemia. Continue Lipitor 10 mg daily. 10. Chronic vertigo. Stable. 11. Gastroesophageal reflux disease. Continue Protonix 40 mg daily. 12. DVT prophylaxis. Currently on Xarelto. 13. GI prophylaxis. Continue patient on Protonix. 14. COVID-19 infection not present. 15. Patient is no code. Discharge plan: [place] on Friday Impression and plan of care have been directed as dictated by the signing physician. Nataliia Alejo nurse practitioner acting as scribe for signing physician.
[2020-04-11] MEDS: FUROSEMIDE 10 MG/ML 4 ML VIAL IV SCH ×2 (09:27→21:17)
[2020-04-11] MEDS: ALPRAZolam 0.5 MG TAB PO SCH ×2 (09:27→21:17)
[2020-04-11] MEDS: CHOLECALCIFEROL 1,000 UNIT TAB PO SCH (09:27)
[2020-04-11] MEDS: SPIRONOLACTONE 25 MG TAB PO SCH (09:27)
[2020-04-11] MEDS: LINAGLIPTIN 5 MG TABLET PO SCH (09:27)
[2020-04-11] MEDS: METOPROLOL TARTRATE 50 MG TAB PO SCH ×2 (09:27→21:17)
[2020-04-11] MEDS: polyethylene glycoL 3350 17 GM POWD.PACK PO SCH (09:28)
[2020-04-11] MEDS: DICLOFENAC 0.1% OPHTH SOLN 2.5 ML BTL LEFT EYE SCH ×4 (09:28→21:18)
--- NOTE | 2020-04-11 10:41 | P.CRDCN ---
History of Present Illness Consult date: 04/11/20 Requesting physician: Marilyn Nash Consult reason: congestive heart failure Chief complaint: Shortness of breath History of present illness: This is a pleasant 89-year-old female with past medical history significant for paroxysmal atrial fibrillation, coronary artery disease with prior bypass surgery with a FRIEDMAN to the LAD, SVG to the RCA in 1995, hyperlipidemia, carotid artery disease status post endarterectomy, hypertension, diabetes, prior GI bleed, chronic vertigo. Patient had a recent hospitalization in February of this year, at the time of discharge she was made hospice care and transferred to [facility] . While at [facility], the patient decided to no longer be hospice and her usual medications have been resumed. She was admitted to the hospital on this occasion because of weakness with extreme shortness of breath. Chest x-ray showed new moderate left and small right-sided pleural effusion with evidence of congestive heart failure. EKG showed normal sinus rhythm with nonspecific ST-T wave changes. Patient did have an echocardiogram with Doppler study performed on March 09 of this year which revealed an ejection fraction of 30-35%. Blood pressure 120/50 with a heart rate in the 60s, temperature 90.8, 95% on 4 L of oxygen. White blood cell count 9.4, hemoglobin 10.5, platelet count 295. Sodium 135, potassium 4.3, BUN 12, creatinine 1.1, magnesium 1.9, troponin 0.012. BNP level 19,500.Murillo virus not detected. Patient was initiated on IV Lasix time of her arrival, she does state overall that she's feeling better but continues to complain of feeling short of breath. Past Medical History Past Medical History: Coronary Artery Disease (CAD), Chest Pain / Angina, Diabetes Mellitus, Hyperlipidemia, Hypertension, Myocardial Infarction (LA), Syncope Additional Past Medical History / Comment(s): DM type II, vertigo/weakness past 5 years and pt states she has had tests but no one knows why, weakness, gait disturbance, falls, bilateral cataracts, dehydration Last Myocardial Infarction Date:: 1995 History of Any Multi-Drug Resistant Organisms: None Reported Past Surgical History: Adenoidectomy, Coronary Bypass/CABG, Heart Catheterization, Orthopedic Surgery, Tonsillectomy Additional Past Surgical History / Comment(s): 3 vessel CABG 1995 in [place], carotid endartectomy 2015, ORIF L ankle d/t fracture. Past Anesthesia/Blood Transfusion Reactions: No Reported Reaction Past Psychological History: No Psychological Hx Reported Additional Psychological History / Comment(s): Pt resides alone in an apartment with her daughter living down the hallway. She has a walker and wheelchair. She no longer drives, her son takes her to appointments. Smoking Status: Former smoker Past Alcohol Use History: None Reported Additional Past Alcohol Use History / Comment(s): Patient smoked one pack per day for 60 years or more and quit in 2016. She denies any alcohol use, marijuana or street drug use. Past Drug Use History: None Reported Additional Drug Use History / Comment(s): Patient smoked for 60+ years. Quit in 2015 - Past Family History Mother Family Medical History: No Reported History Additional Family Medical History / Comment(s): Mother at age 82 from old age. Father Family Medical History: No Reported History Additional Family Medical History / Comment(s): Father from old age and patient does not recall his age or any medical problems. Son(s) Family Medical History: Cancer Additional Family Medical History / Comment(s): Patient has one son with history of throat cancer in remission. Patient has one daughter with no major medical problems. Patient does not have any brothers or sisters. Medications and Allergies Home Medications Medication Instructions Recorded Confirmed Type Insulin Detemir [Levemir Flextouch] 14 units SQ HS 03/02/20 04/08/20 History ALPRAZolam [Xanax] 0.5 mg PO BID 04/08/20 04/08/20 History Cholecalciferol [Vitamin D3 (25 2,000 unit PO DAILY 04/08/20 04/08/20 History Mcg = 1000 Iu)] Hydrocodone/Acetaminophen [Meridian 1 tab PO TID PRN 04/08/20 04/08/20 History 5-325] Ipratropium-Albuterol Nebulize 3 ml INHALATION RT-QID PRN 04/08/20 04/08/20 History [Duoneb 0.5 mg-3 mg/3 ml Soln] Linagliptin [Tradjenta] 5 mg PO DAILY 04/08/20 04/08/20 History Lisinopril [Prinivil] 10 mg PO HS 04/08/20 04/08/20 History Lubiprostone [Amitiza] 24 mcg PO BID PRN 04/08/20 04/08/20 History Metoprolol Tartrate [Lopressor] 50 mg PO BID 04/08/20 04/08/20 History Pantoprazole [Protonix] 40 mg PO HS 04/08/20 04/08/20 History Polyethylene Glycol 3350 [Miralax] 17 gm PO DAILY 04/08/20 04/08/20 History Rivaroxaban [Xarelto] 15 mg PO HS 04/08/20 04/08/20 History Simvastatin [Zocor] 20 mg PO HS 04/08/20 04/08/20 History amLODIPine [Norvasc] 5 mg PO DAILY 04/08/20 04/08/20 History Allergies Allergy/AdvReac Type Severity Reaction Status Date / Time zolpidem [From Ambien] AdvReac Hallucinati Verified 04/08/20 22:15 ons Physical Exam Vitals: Vital Signs Temp Pulse Resp BP BP Pulse Ox 04/11/20 08:51 97.9 F 73 18 118/64 95 04/11/20 08:00 73 18 04/11/20 04:00 98 F 67 18 120/58 95 04/10/20 20:00 98.5 F 146 H 18 126/60 98 04/10/20 18:25 125/55 04/10/20 16:00 148 H 16 140/62 04/10/20 15:50 148 H 71/43 04/10/20 15:30 139 H 91/68 04/10/20 14:20 138 H 16 113/73 04/10/20 13:00 97.5 F L 64 17 110/65 96 Intake and Output 04/10/20 04/11/20 04/11/20 22:59 06:59 14:59 Intake Total 120 Balance 120 Intake: Oral 120 Other: Voiding Method Bedpan Bedpan Toilet Bedside Commode # Voids 1 1 1 # Bowel Movements 1 PHYSICAL EXAMINATION: GENERAL: 89-year-old female in no acute distress at the time of my examination HEENT: Head is atraumatic, normocephalic. Pupils equal, round. Sclera anicteric. Conjunctiva are clear. Mucous membranes of the mouth are moist. Neck is supple. There is no elevated jugular venous pressure. No Carotid bruit is heard. HEART EXAMINATION: Heart S1 and S2 systolic murmur is heard CHEST EXAMINATION: Lungs reveal decreased breath sounds to the bases bilaterally ABDOMEN: Soft, nontender. Bowel sounds are heard. No organomegaly noted. EXTREMITIES: 2+ peripheral pulses with no evidence of peripheral edema and no calf tenderness noted. NEUROLOGIC [patient is awake, alert and oriented 3 . Results 04/10/20 05:25 04/10/20 05:25 Current Medications Generic Name Dose Route Start Last Admin Trade Name Freq PRN Reason Stop Dose Admin Acetaminophen 650 mg 04/08/20 19:21 Tylenol Tab PO Q6HR PRN Mild Pain or Fever > 100.5 Hydrocodone Bitart/Acetaminophen 1 each 04/09/20 06:06 04/10/20 17:19 Meridian 5-325 PO 1 each TID PRN Administration Pain Albuterol/Ipratropium 3 ml 04/09/20 06:06 04/09/20 07:32 Duoneb 0.5 Mg-3 Mg/3 Ml Soln INHALATION 3 ml RT-QID PRN Administration Shortness Of Breath Alprazolam 0.5 mg 04/09/20 09:00 04/11/20 09:27 Xanax PO 0.5 mg BID GENNY Administration Atorvastatin Calcium 10 mg 04/09/20 21:00 04/10/20 20:28 Lipitor PO 10 mg HS GENNY Administration Cholecalciferol 2,000 unit 04/09/20 09:00 04/11/20 09:27 Vitamin D3 (25 Mcg = 1000 Iu) PO 2,000 unit DAILY GENNY Administration Diclofenac Sodium 1 drops 04/10/20 18:15 04/11/20 09:28 Voltaren 0.1% Ophth Soln LEFT EYE 04/20/20 09:01 1 drops QID GENNY Administration Furosemide 40 mg 04/09/20 21:00 04/11/20 09:27 Lasix IV 40 mg Q12HR GENNY Administration Insulin Aspart 0 unit 04/10/20 07:30 04/11/20 05:59 Novolog SQ Not Given ACHS [facility] Protocol Insulin Detemir 14 unit 04/09/20 21:00 04/10/20 20:48 Levemir SQ 14 unit HS GENNY Administration Linagliptin 5 mg 04/09/20 09:00 04/11/20 09:27 Tradjenta PO 5 mg DAILY GENNY Administration Lisinopril 10 mg 04/09/20 21:00 04/10/20 20:28 Zestril PO 10 mg HS GENNY Administration Metoprolol Tartrate 50 mg 04/09/20 09:00 04/11/20 09:27 Lopressor PO 50 mg BID GENNY Administration Morphine Sulfate 2 mg 04/10/20 01:53 04/10/20 01:59 Morphine Sulfate (Inj) IVP 2 mg Q4H PRN Administration Pain/Discomfort Naloxone HCl 0.2 mg 04/08/20 19:21 Narcan IV Q2M PRN Opioid Reversal Pantoprazole Sodium 40 mg 04/09/20 21:00 04/10/20 20:28 Protonix PO 40 mg HS GENNY Administration Polyethylene Glycol 17 gm 04/09/20 09:00 04/11/20 09:28 Miralax PO 17 gm DAILY GENNY Administration Rivaroxaban 15 mg 04/09/20 21:00 04/10/20 20:28 Xarelto PO 15 mg HS GENNY Administration Spironolactone 25 mg 04/11/20 09:00 04/11/20 09:27 Aldactone PO 25 mg DAILY GENNY Administration Intake and Output 04/10/20 04/11/20 04/11/20 22:59 06:59 14:59 Intake Total 120 Balance 120 Intake: Oral 120 Other: Voiding Method Bedpan Bedpan Toilet Bedside Commode # Voids 1 1 1 # Bowel Movements 1 04/10/20 05:25 04/10/20 05:25 EKG Interpretations (text) EKG shows a normal sinus rhythm with nonspecific ST-T wave changes Assessment and Plan Plan: Assessment and plan #1 systolic congestive heart failure acute on chronic, evidence of bilateral pleural effusions #2 symptoms of generalized weakness #3 coronary artery disease with prior bypass surgery #4 diabetes #5 hypertension #6 hyperlipidemia #7 paroxysmal atrial fibrillation #8 anemia #9 chronic vertigo #10 carotid artery disease status post carotid endarterectomy Plan Patient just recently had an echo performed in February of this year which revealed an ejection fraction of 30-35%, we will not need to repeat an echo on this admission. We will discontinue the Norvasc secondary to low ejection fraction, continue beta bryan and ALICIA inhibitor, add Aldactone to the medication regime. Continue to monitor the patient's intake and output along with daily weights and daily lytes BUN and creatinine. DNP note has been reviewed, I agree with a documented findings and plan of care. Patient was seen and examined.
--- NOTE | 2020-04-11 10:52 | XR ---
EXAMINATION TYPE: XR chest 1V portable DATE OF EXAM: 04/11/2020 COMPARISON: Prior chest x-ray 04/08/2020 HISTORY: Congestive heart failure TECHNIQUE: Single frontal view of the chest is obtained. FINDINGS: Patient is post median sternotomy. Aorta is dense. Retrocardiac density, bibasilar increase d attenuation is noted. No evident pneumothorax. Heart is at the upper limit of normal for size. Ther e is improvement in the central vascularity and interstitium. IMPRESSION: Basilar effusions and possible associated edema or atelectasis. There is some improvemen t in patient's volume status, aeration within the lungs.
[2020-04-11 12:08] LABS: Glucose,Whole Blood 115 mg/dL (75-99)
--- NOTE | 2020-04-11 13:48 | P.PN ---
Subjective Progress Note Date: 04/11/20 Principal diagnosis: Acute on chronic hypoxemic respiratory failure secondary to acute exacerbation of systolic CHF, bilateral pleural effusions This is a pleasant 89-year-old female patient who follows with Dr. Nash as her primary care provider. She has a history of diabetes mellitus, hypertension, vertigo, heart disease with previous coronary artery bypass grafting in 1995 in [place], carotid artery disease with previous right-sided endarterectomy in 2016, former smoker. He was recently discharged from here for multiple issues including anaphylactic reaction due to IV iron, acute kidney injury, hyperkalemia, paroxysmal atrial fibrillation anticoagulated with Xarelto. The plan at that time was to go to [facility] into hospice care. She was however brought back to the emergency room yesterday with complaints of increasing shortness of breath, dizziness and weakness. Chest x-ray revealed a new moderate left and small right pleural effusion. Suspect congestive heart failure. She does have moderate to severely impaired left ventricular systolic function with ejection fraction 30-35%. She is seen today in consultation on the regular medical floor. She is currently awake and alert. Resting fairly comfortably in bed. Laying flat. Maintaining O2 saturation in the mid 90s on 4 L/m per nasal cannula. She's afebrile. White count 7.5. Hemoglobin 9.3. Sodium 138. Potassium 4.7. Creatinine 1.08. She's been initiated on Lasix 40 mg IV every 12 hours. On 04/10/2020 patient seen in follow-up on general medical oncology floor, she is resting comfortably in bed, she is satting 95% on room air, hemodynamics are stable, she is afebrile, she states she is feeling better, breathing easier. She remains on IV diuretics with Lasix 40 mg every 12 hours, she is in -3.5 liters over last 24 hours according to the weight. Lung sounds reveal slightly diminished breath sounds over left lower lobe, overall lung sounds are clear, no rhonchi or wheezing, today's labs have been reviewed, showing white blood cell count 9.4, hemoglobin is 10.5, sodium is 135, potassium is 4.3, chloride is 99, CO2 is 31, BUN is 12, creatinine is 1.16. No fever or chills, no complaints of chest pain. No cough or congestion. On 04/11/2020 patient seen in follow-up on selective care unit, she is awake and alert, in no acute distress, currently on 4 L of oxygen a pulse ox of 99%, we dropped the FiO2 down to 2 L, breathing is comfortable, no acute events overnight, she remains on Lasix, lung sounds are diminished, in the left lower lobe posteriorly, there has been no recorded weight today, but overall patient states her breathing is easier. Follow-up chest x-ray has been obtained showing improvement in the central vascularity and interstitium, volume status and aeration within the lungs. No complaints of chest pain. No fever or chills. Continue weaning FiO2, increase activity as tolerated. Would probably be considered for discharge home today. Objective - Vital Signs Vital signs: Vital Signs Temp 98.0 F 04/11/20 11:16 Pulse 58 L 04/11/20 11:16 Resp 18 04/11/20 11:16 BP 128/69 04/11/20 11:16 Pulse Ox 97 04/11/20 11:16 Intake & Output 04/10/20 04/11/20 04/11/20 18:59 06:59 18:59 Intake Total 120 Balance 120 Intake: Oral 120 Other: Voiding Method Bedpan Bedpan Toilet Bedside Commode # Voids 1 1 1 # Bowel Movements 1 - Exam GENERAL EXAM: Alert, very pleasant 89-year-old white female, on 4 L of oxygen with a pulse ox of 99% comfortable in no apparent distress. HEAD: Normocephalic/atraumatic. EYES: Normal reaction of pupils, equal size. Conjunctiva pink, sclera white. NOSE: Clear with pink turbinates. THROAT: No erythema or exudates. NECK: No masses, no JVD, no thyroid enlargement, no adenopathy. CHEST: No chest wall deformity. Symmetrical expansion. LUNGS: Slightly diminished breath sounds over left lower lobe, otherwise lung sounds are clear, no rhonchi or wheezing CVS: Regular rate and rhythm, normal S1 and S2, no gallops, no murmurs, no rubs ABDOMEN: Soft, nontender. No hepatosplenomegaly, normal bowel sounds, no guarding or rigidity. EXTREMITIES: No clubbing, no edema, no cyanosis, 2+ pulses and upper and lower extremities. MUSCULOSKELETAL: Muscle strength and tone normal. SPINE: No scoliosis or deformity SKIN: No rashes CENTRAL NERVOUS SYSTEM: Alert and oriented -3. No focal deficits, tone is normal in all 4 extremities. PSYCHIATRIC: Alert and oriented -3. Appropriate affect. Intact judgment and insight. - Labs CBC & Chem 7: 04/10/20 05:25 04/10/20 05:25 Labs: Abnormal Lab Results - Last 24 Hours (Table) 04/10/20 04/10/20 04/11/20 Range/Units 17:07 20:29 05:55 POC Glucose (mg/dL) 107 H 132 H 114 H (75-99) mg/dL 04/11/20 04/11/20 Range/Units 06:24 11:34 POC Glucose (mg/dL) 117 H 115 H (75-99) mg/dL Assessment and Plan Plan: Assessment: 1 Acute on chronic hypoxemic respiratory failure secondary to an acute exacerbation of chronic systolic congestive heart failure with ejection fraction 30-35%. 2 Moderate left and small right pleural effusion secondary to above 3 History of coronary artery disease with previous coronary artery bypass grafting 4 History of carotid artery disease with previous right-sided carotid endarterectomy 5 Diabetes mellitus 6 Hypertension 7 Hyperlipidemia 8 Vertigo 9 Prior smoking history 10 Poor overall functional performance based on the above-mentioned multiple comorbidities Plan: Today's chest x-ray shows improvement in central vascularity, improvement in aeration in the volume status, we dropped down the FiO2 down to 2 L, continue we aning FiO2, vital are stable, no acute events overnight, increase activity as tolerated, from pulmonary perspective patient can probably consider for discharge home, once she is cleared by cardiology. No plans for thoracentesis I performed a history & physical examination of the patient and discussed their management with my nurse practitioner, Michelle Driscoll. I reviewed the nurse practitioner's note and agree with the documented findings and plan of care. Lung sounds are positive for diminished breath sounds. The findings and the impression was discussed with the patient. I attest to the documentation by the nurse practitioner. Time with Patient: Less than 30
[2020-04-11 16:34] LABS: Glucose,Whole Blood 201 mg/dL (75-99)
[2020-04-11] MEDS: ACETAMINOPHEN TAB 325 MG TAB PO PRN (16:47)
[2020-04-11 20:03] LABS: Glucose,Whole Blood 105 mg/dL (75-99)
[2020-04-11] MEDS: INSULIN DETEMIR (LEVEMIR) 100 UNIT/ML SYR SQ SCH (21:09)
[2020-04-11] MEDS: PANTOPRAZOLE 40 MG TABLET PO SCH (21:17)
[2020-04-11] MEDS: RIVAROXABAN 15 MG TAB PO SCH (21:17)
[2020-04-11] MEDS: lisinopriL 10 MG TAB PO SCH (21:17)
[2020-04-11] MEDS: ATORVASTATIN 10 MG TAB PO SCH (21:17)
[2020-04-12 06:04] LABS: Glucose,Whole Blood 101 mg/dL (75-99)
[2020-04-12] MEDS: INSULIN ASPART (NovoLOG) 100 UNIT/ML VIAL SQ SCH ×4 (06:12→20:48)
[2020-04-12] MEDS: ALPRAZolam 0.5 MG TAB PO SCH ×2 (09:41→21:13)
[2020-04-12] MEDS: SPIRONOLACTONE 25 MG TAB PO SCH (09:41)
[2020-04-12] MEDS: CHOLECALCIFEROL 1,000 UNIT TAB PO SCH (09:41)
[2020-04-12] MEDS: METOPROLOL TARTRATE 50 MG TAB PO SCH ×2 (09:42→21:15)
[2020-04-12] MEDS: DICLOFENAC 0.1% OPHTH SOLN 2.5 ML BTL LEFT EYE SCH ×4 (09:42→21:13)
[2020-04-12] MEDS: LINAGLIPTIN 5 MG TABLET PO SCH (09:42)
[2020-04-12] MEDS: polyethylene glycoL 3350 17 GM POWD.PACK PO SCH (09:42)
--- NOTE | 2020-04-12 10:54 | P.PN ---
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, patient was recently hospitalized at [facility] back in February 2020 where she was admitted for increased dizziness and lightheadedness and underwent upper and lower endoscopy that showed initially Schatzki's ring with diverticulosis and 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 that was treated with argon treatment, patient also during the last hospital admission went into atrial fibrillation with rapid ventricular response she ended up with acute systolic heart failure underwent echocardiogram that showed ejection fraction of 30-35%, with a mild aortic stenosis and aortic sclerosis, no mitral regur gitation but there was mild tricuspid regurgitation, patient was treated with the heparin drip and subsequently she was switched back to Xarelto 50 mg orally once every day, patient became quite short of breath and she was requiring BiPAP treatment however she elected to go into hospice care she went back to [facility] under hospice care while she was at [facility] she elected to sign herself off of hospice care and she want medical care at that time subsequently her medications were restarted and the patient was treated medically she was just discharged from [facility] 24 hours ago and she went to her daughter's house however she became quite weak and extreme short of breath, she ended up coming to the emergency department at [facility] had a chest x-ray that showed left more than right pleural effusion and she was hypertensive, patient will be given Lasix 40 mg IV push every 12 hours, she will be seen in consultation by cardiology as well as by pulmonary for possible thoracentesis in the left side. 04/10: Patient has been seen and followed by pulmonary medicine with no plan for thoracentesis and continued IV diuretics. Patient has had good urine output over the past 24 hours. Repeat blood work reveals hemoglobin of 10.5. Sodium 135, CO2 31, BUN 12 and creatinine 1.16. Potassium 4.3, blood sugars running between 120 and 150. Patient has been afebrile, heart rate 64, blood pressure 110/65, pulse ox 96% on 4 L nasal cannula. Patient denies any chest pain or shortness of breath. Call from nursing staff in the afternoon for A. fib with RVR 130s and 140 bpm. Patient ordered for EKG, 1 extra dose of Lopressor 50 mg and cardiology consult. Patient is are on Xarelto chronically. Consult was added for Dr. Keith regarding patient's complaint of left thigh pain. 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 Recommendations are for Voltaren eyedrops twice daily and follow up with him in the office in 1 week. Yesterday afternoon, patient developed A. fib with RVR in the 140s. Patient was ordered for additional dose of metoprolol and cardiology consult. Patient was transferred to the selective care unit. Patient has been stable. He she was subsequently started on Cardizem drip and transition to normal sinus rhythm around midnight. Patient denies any new complaints today. I pain seems to be better. She states she is angry because she is sick. Discussed discharge planning is PT and OT have recommended subacute rehab. loss prevention and safety manager has arranged be taken home care. Patient is willing to go back to [facility] for several weeks of subacute rehab. She has been afebrile, heart rate currently 67, blood pressure 120/58, pulse ox 95% on 4 L nasal cannula. Blood sugars run between 114 1132. Anticipate she will be ready for discharge tomorrow. 04/12: Patient is seen today on the selective care unit. She remains in a sinus rhythm. Heart rate is running in the 60s. Blood pressure 179/67, pulse ox 96% on 2 L nasal cannula. Patient states she is feeling tired today. She is not eating very much and requesting chocolate ensure which will be ordered. Plan is for discharge to [facility] tomorrow. IV Lasix will be discontinued. Objective - Vital Signs Vital signs: Vital Signs Temp 98.2 F 04/12/20 04:00 Pulse 86 04/12/20 04:00 Resp 19 04/12/20 04:00 BP 119/63 04/12/20 04:00 Pulse Ox 98 04/12/20 04:00 Intake & Output 04/11/20 04/12/20 04/12/20 18:59 06:59 18:59 Intake Total 330 0 Output Total 210 Balance 330 -210 Weight 66.5 kg Intake: Oral 330 0 Output: Urine 210 Other: Voiding Method Toilet Toilet Bedside Commode Bedside Commode # Voids 2 1 # Bowel Movements 1 - Exam Review of Systems Constitutional: Reports chronic pain, Reports fatigue, Reports malaise, Reports weakness, Denies anorexia, Denies weight gain, Denies weight loss Eyes: denies blurred vision, denies bulging eye, denies decreased vision, repor ts left eye pain Ears: bilateral: decreased hearing Ears, nose, mouth and throat: Denies dysphagia, Denies neck lump, Denies sore throat Cardiovascular: Reports decreased exercise tolerance, Reports dyspnea on exertion, denies shortness of breath, Denies chest pain, Denies lightheadedness, Denies rapid heart beat, Denies syncope Gastrointestinal: Reports loss of appetite, Denies abdominal pain, Denies BRBPR, Denies excessive gas, Denies heartburn, Denies melena, Denies nausea, Denies vomiting Genitourinary: Reports nocturia, Denies dysuria Menstruation: Reports postmenopausal Musculoskeletal: Reports atrophy, Reports gait dysfunction Musculoskeletal: absent: ankle pain, ankle stiffness, ankle swelling, elbow pain, elbow stiffness, elbow swelling, foot pain, foot stiffness, foot swelling, hand pain, hand stiffness, hand swelling, hip pain, hip stiffness, hip swelling, knee pain, knee stiffness, knee swelling, shoulder pain, shoulder stiffness, shoulder swelling, wrist pain, wrist stiffness, wrist swelling Integumentary: Denies pruritus, Denies rash Neurological: Reports balance difficulties, Reports gait dysfunction, Reports weakness Psychiatric: Reports anxiety, Denies depression, Denies sadness/tearfulness, Denies sleep disturbances, Denies suicidal ideation Endocrine: Denies fatigue, Denies weight change Physical examination: GEN: This is an 89-year-old female. She is resting in bed and appears to be comfortable and in no acute distress. HEENT: Head is atraumatic, normocephalic, pupils were equal round reactive to light and accommodations, extraocular muscle movement were intact. Oral mucous membranes are slightly dry Neck: Supple, no JVP, decreased carotid upstroke bilaterally. Chest: Decreased breath sounds at the bases, no chest wall tenderness no intercostal retractions there is no expiratory wheezes. Heart: First heart sound is depressed, second heart sounds normal, there is systolic murmur 2/6 located at the right second intercostal space related to the base of the neck per Abdomen: Soft, nontender, nondistended, positive bowel sounds. Extremities: No pedal edema bilaterally, dorsalis pedis palpable bilaterally. No calf tenderness. Neurologic examination: Patient is awake and alert and oriented 3. No focal neuro deficits. Cranial nerves III-12 appear grossly intact. - Labs CBC & Chem 7: 04/10/20 05:25 04/10/20 05:25 Labs: Abnormal Lab Results - Last 24 Hours (Table) 04/11/20 04/11/20 04/11/20 Range/Units 11:34 16:30 20:02 POC Glucose (mg/dL) 115 H 201 H 105 H (75-99) mg/dL 04/12/20 Range/Units 06:02 POC Glucose (mg/dL) 101 H (75-99) mg/dL Assessment and Plan Plan: 1. Acute systolic heart failure with bilateral pleural effusion left more than right. Discontinue IV Lasix, continue metoprolol 50 mg orally twice every day, continue lisinopril 10 mg orally once every day, cardiology consultation appreciated, patient did have an echocardiogram a month ago and that showed ejection fraction of 30-35% with mild aortic stenosis and mild tricuspid regurgitation. Pulmonary consultation is appreciated. No plan for thoracentesis at this time. 2. Generalized weakness likely related to medical debility due to her cardiomyopathy as well as pleural effusion. Physical therapy evaluation. 3. Bilateral pleural effusion left more than right. Consult pulmonary medicine for thoracentesis discontinue IV Lasix 4. Paroxysmal atrial fibrillation with episode of RVR. Continue metoprolol 50 mg orally twice every day, continue Xarelto 15 mg orally once every day. Cardiology consult appreciated. 5. History of coronary artery disease status post three-vessel CABG in 1995. Continue patient on metoprolol 50 mg orally twice every day as well as Lipitor 10 mg orally once every day. 6. Carotid artery disease status post carotid endarterectomy. Stable. 7. Diabetes mellitus type 2, insulin requiring. Continue Levemir 14 units at bedtime and NovoLog scale before meals and at bedtime, Tradjenta 5 mg daily. Continue Accu-Chek before each meal and at bedtime along with a sliding scale insulin. 8. 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 Continue metoprolol 50 mg orally twice every day, lisinopril 10 mg orally once every day. 9. Hyperlipidemia. Continue Lipitor 10 mg daily. 10. Chronic vertigo. Stable. 11. Gastroesophageal reflux disease. Continue Protonix 40 mg daily. 12. DVT prophylaxis. Currently on Xarelto. 13. GI prophylaxis. Continue patient on Protonix. 14. COVID-19 infection not present. 15. Patient is no code. Discharge plan: [facility] Impression and plan of care have been directed as dictated by the signing physician. Nataliia Alejo nurse practitioner acting as scribe for signing physician.
[2020-04-12 12:05] LABS: Glucose,Whole Blood 102 mg/dL (75-99)
--- NOTE | 2020-04-12 12:24 | P.PN ---
Subjective Progress Note Date: 04/12/20 Principal diagnosis: Acute on chronic hypoxemic respiratory failure secondary to acute exacerbation of systolic CHF, bilateral pleural effusions This is a pleasant 89-year-old female patient who follows with Dr. Nash as her primary care provider. She has a history of diabetes mellitus, hypertension, vertigo, heart disease with previous coronary artery bypass grafting in 1995 in [place], carotid artery disease with previous right-sided endarterectomy in 2016, former smoker. He was recently discharged from here for multiple issues including anaphylactic reaction due to IV iron, acute kidney injury, hyperkalemia, paroxysmal atrial fibrillation anticoagulated with Xarelto. The plan at that time was to go to [facility] into hospice care. She was however brought back to the emergency room yesterday with complaints of increasing shortness of breath, dizziness and weakness. Chest x-ray revealed a new moderate left and small right pleural effusion. Suspect congestive heart failure. She does have moderate to severely impaired left ventricular systolic function with ejection fraction 30-35%. She is seen today in consultation on the regular medical floor. She is currently awake and alert. Resting fairly comfortably in bed. Laying flat. Maintaining O2 saturation in the mid 90s on 4 L/m per nasal cannula. She's afebrile. White count 7.5. Hemoglobin 9.3. Sodium 138. Potassium 4.7. Creatinine 1.08. She's been initiated on Lasix 40 mg IV every 12 hours. On 04/10/2020 patient seen in follow-up on general medical oncology floor, she is resting comfortably in bed, she is satting 95% on room air, hemodynamics are stable, she is afebrile, she states she is feeling better, breathing easier. She remains on IV diuretics with Lasix 40 mg every 12 hours, she is in -3.5 liters over last 24 hours according to the weight. Lung sounds reveal slightly diminished breath sounds over left lower lobe, overall lung sounds are clear, no rhonchi or wheezing, today's labs have been reviewed, showing white blood cell count 9.4, hemoglobin is 10.5, sodium is 135, potassium is 4.3, chloride is 99, CO2 is 31, BUN is 12, creatinine is 1.16. No fever or chills, no complaints of chest pain. No cough or congestion. On 04/11/2020 patient seen in follow-up on selective care unit, she is awake and alert, in no acute distress, currently on 4 L of oxygen a pulse ox of 99%, we dropped the FiO2 down to 2 L, breathing is comfortable, no acute events overnight, she remains on Lasix, lung sounds are diminished, in the left lower lobe posteriorly, there has been no recorded weight today, but overall patient states her breathing is easier. Follow-up chest x-ray has been obtained showing improvement in the central vascularity and interstitium, volume status and aeration within the lungs. No complaints of chest pain. No fever or chills. Continue weaning FiO2, increase activity as tolerated. Would probably be considered for discharge home today. The patient is seen today 04/12/2020 in follow-up on the selective care unit. She is currently sitting up in a chair at the bedside. Awake and alert in no acute distress. No worsening shortness of breath, cough or congestion. She is maintaining O2 saturations in the mid 90s on 2 L/m per nasal cannula. Afebrile. Hemodynamically stable. Blood glucose 102. Objective - Vital Signs Vital signs: Vital Signs Temp 97.8 F 04/12/20 11:41 Pulse 65 04/12/20 11:41 Resp 18 04/12/20 11:41 BP 142/62 04/12/20 11:41 Pulse Ox 96 04/12/20 11:41 Intake & Output 04/11/20 04/12/20 04/12/20 18:59 06:59 18:59 Intake Total 330 0 Output Total 210 Balance 330 -210 Weight 66.5 kg Intake: Oral 330 0 Output: Urine 210 Other: Voiding Method Toilet Toilet Toilet Bedside Commode Bedside Commode Bedside Commode # Voids 2 1 # Bowel Movements 1 - Exam GENERAL EXAM: Alert, very pleasant 89-year-old white female, on 2 L of oxygen with a pulse ox of 96% comfortable in no apparent distress. HEAD: Normocephalic/atraumatic. EYES: Normal reaction of pupils, equal size. Conjunctiva pink, sclera white. NOSE: Clear with pink turbinates. THROAT: No erythema or exudates. NECK: No masses, no JVD, no thyroid enlargement, no adenopathy. CHEST: No chest wall deformity. Symmetrical expansion. LUNGS: Slightly diminished breath sounds over left lower lobe, basilar crackles left greater than right CVS: Regular rate and rhythm, normal S1 and S2, no gallops, no murmurs, no rubs ABDOMEN: Soft, nontender. No hepatosplenomegaly, normal bowel sounds, no guarding or rigidity. EXTREMITIES: No clubbing, no edema, no cyanosis, 2+ pulses and upper and lower extremities. MUSCULOSKELETAL: Muscle strength and tone normal. SPINE: No scoliosis or deformity SKIN: No rashes CENTRAL NERVOUS SYSTEM: No focal deficits, tone is normal in all 4 extremities. PSYCHIATRIC: Alert and oriented -3. Appropriate affect. Intact judgment and insight. - Labs CBC & Chem 7: 04/10/20 05:25 04/10/20 05:25 Labs: Abnormal Lab Results - Last 24 Hours (Table) 04/11/20 04/11/20 04/12/20 Range/Units 16:30 20:02 06:02 POC Glucose (mg/dL) 201 H 105 H 101 H (75-99) mg/dL 04/12/20 Range/Units 12:04 POC Glucose (mg/dL) 102 H (75-99) mg/dL Assessment and Plan Assessment: 1 Acute on chronic hypoxemic respiratory failure secondary to an acute exacerbation of chronic systolic congestive heart failure with ejection fraction 30-35%. 2 Moderate left and small right pleural effusion secondary to above 3 History of coronary artery disease with previous coronary artery bypass grafting 4 History of carotid artery disease with previous right-sided carotid endarterectomy 5 Diabetes mellitus 6 Hypertension 7 Hyperlipidemia 8 Vertigo 9 Prior smoking history 10 Poor overall functional performance based on the above-mentioned multiple comorbidities Plan: The patient was seen and evaluated by Dr. Lyons She is cleared for discharge from the pulmonary standpoint. Follow-up in our office in 1-2 weeks' time I, the cosigning physician, performed a history & physical examination of the patient. Lungs sounds with bilateral basilar crackles left greater than right. Maintaining good O2 saturations in the 90s on 2 L/m per nasal cannula. I discussed the assessment and plan of care with my nurse practitioner, Trista Ramírez. I attest to the above consultation as dictated by her.
[2020-04-12] MEDS: ACETAMINOPHEN TAB 325 MG TAB PO PRN (12:42)
[2020-04-12] MEDS: HYDROcodone/APAP 5-325MG 1 EACH TAB PO PRN (14:03)
[2020-04-12 14:24] LABS: Magnesium 1.9 mg/dL (1.6-2.3)
[2020-04-12 14:37] LABS: Potassium 4.3 mmol/L (3.5-5.1)
[2020-04-12] MEDS: MORPHINE SULFATE 2 MG/ML SYRINGE IVP PRN (14:54)
--- NOTE | 2020-04-12 14:57 | P.PN ---
Subjective This is Cristiane Palumbo PA-C dictating a progress note on this patient The patient was interviewed and examined by me as well as by Dr. Chauhan Case discussed with Dr. Chauhan and he agrees with the plan of care HPI/interval history Patient is an 89-year-old female with a history of PAF, CAD status post CABG, hypertension, chronic artery atherosclerosis status post endarterectomy, diabetes, and GI bleeding, chronic vertigo who presented with weakness and shortness of breath. She is being treated for CHF exacerbation. She went into atrial fibrillation and was placed on a Cardizem drip and then she converted to sinus rhythm. She remains in sinus rhythm today. Patient seen and examined resting in bed, lying almost flat. States her breathing is an "okay". Denies any chest pain. Still feeling very tired. EXAMINATION Patient is afebrile, pulse in the 60s respirations 18 blood pressure 142/62, oxygen saturation 96% on 2 L nasal cannula Patient seen and examined resting in bed, in no acute distress, lying almost completely flat Heart is regular, soft systolic murmur Lungs mildly diminished at the bases No lower extremity edema REVIEW OF LABS, ECG Potassium 4.3, BUN 24, creatinine 1.49, magnesium 1.9 IMPRESSION / ASSESSMENT: #1 systolic congestive heart failure acute on chronic, evidence of bilateral pleural effusions, improved #2 symptoms of generalized weakness #3 coronary artery disease with prior bypass surgery #4 diabetes #5 hypertension #6 hyperlipidemia #7 paroxysmal atrial fibrillation #8 anemia #9 chronic vertigo #10 carotid artery disease status post carotid endarterectomy PLAN: Accurate daily weight I and O's Monitor electrolytes Continue current regimen including beta blockers, lisinopril, and spironolactone Objective - Vital Signs Vital signs: Vital Signs Temp 97.8 F 04/12/20 11:41 Pulse 65 04/12/20 11:41 Resp 18 04/12/20 11:41 BP 142/62 04/12/20 11:41 Pulse Ox 96 04/12/20 11:41 Intake & Output 04/11/20 04/12/20 04/12/20 18:59 06:59 18:59 Intake Total 330 0 90 Output Total 210 Balance 330 -210 90 Weight 66.5 kg Intake: Oral 330 0 90 Output: Urine 210 Other: Voiding Method Toilet Toilet Toilet Bedside Commode Bedside Commode Bedside Commode # Voids 2 1 2 # Bowel Movements 1 - Labs CBC & Chem 7: 04/10/20 05:25 04/12/20 13:25 Labs: Abnormal Lab Results - Last 24 Hours (Table) 04/11/20 04/11/20 04/12/20 Range/Units 16:30 20:02 06:02 BUN (7-17) mg/dL Creatinine (0.52-1.04) mg/dL Glucose (74-99) mg/dL POC Glucose (mg/dL) 201 H 105 H 101 H (75-99) mg/dL 04/12/20 04/12/20 Range/Units 12:04 13:25 BUN 24 H (7-17) mg/dL Creatinine 1.49 H (0.52-1.04) mg/dL Glucose 123 H (74-99) mg/dL POC Glucose (mg/dL) 102 H (75-99) mg/dL
[2020-04-12 16:51] LABS: Glucose,Whole Blood 127 mg/dL (75-99)
[2020-04-12 20:22] LABS: Glucose,Whole Blood 123 mg/dL (75-99)
[2020-04-12] MEDS: PANTOPRAZOLE 40 MG TABLET PO SCH (21:13)
[2020-04-12] MEDS: ATORVASTATIN 10 MG TAB PO SCH (21:13)
[2020-04-12] MEDS: RIVAROXABAN 15 MG TAB PO SCH (21:13)
[2020-04-12] MEDS: INSULIN DETEMIR (LEVEMIR) 100 UNIT/ML SYR SQ SCH (21:15)
[2020-04-12] MEDS: lisinopriL 10 MG TAB PO SCH (21:16)
[2020-04-13 06:28] LABS: Glucose,Whole Blood 116 mg/dL (75-99)
[2020-04-13] MEDS: INSULIN ASPART (NovoLOG) 100 UNIT/ML VIAL SQ SCH ×2 (06:49→13:05)
[2020-04-13 07:00] LABS: Calcium 8.8 mg/dL (8.4-10.2); Potassium 4.3 mmol/L (3.5-5.1)
--- NOTE | 2020-04-13 07:40 | P.DS ---
Providers Date of admission: 04/10/20 15:44 Expected date of discharge: 04/13/20 Attending physician: Marilyn Nash Consults: 04/09/20 10:43 Consult Physician Routine Consulting Provider: Riley Barragan V Consult Reason/Comments: CHF Do you want consulting provider notified?: Yes 04/09/20 10:44 Consult Physician Routine Consulting Provider: Alexei Alas Consult Reason/Comments: Pleural effusion Do you want consulting provider notified?: Yes 04/10/20 07:36 Consult Physician Routine Consulting Provider: Anastasiia Thomas Consult Reason/Comments: left eye pain Do you want consulting provider notified?: Yes 04/10/20 14:23 Consult Physician Routine Consulting Provider: Dejan Stanley Consult Reason/Comments: afib RVR Do you want consulting provider notified?: Yes Primary care physician: Marilyn Nash [facility] Course: This is an 89-year-old female patient with past medical history of coronary artery disease status post three-vessel CABG in 1995, carotid artery disease status post carotid endarterectomy in 2015, diabetes mellitus type 2, paroxysmal atrial fibrillation chronically on Xarelto, hypertension, hyperlipidemia, chronic vertigo 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, patient was recently hospitalized at [facility] in February 2020 where she was admitted for increased dizziness and lightheadedness and underwent upper and lower endoscopy that showed initially Schatzki's ring with diverticulosis and 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 that was treated with argon treatment, patient also during the last hospital admission went into atrial fibrillation with rapid ventricular response she ended up with acute systolic heart failure underwent echocardiogram that showed ejection fraction of 30-35%, with a mild aortic stenosis and aortic sclerosis, no mitral regurgitation but there was mild tricuspid regurgitation, patient was treated with the heparin drip and subsequently she was switched back to Xarelto 50 mg orally once every day, patient became quite short of breath and she was requiring BiPAP treatment however she elected to go into hospice care she went back to [facility] under hospice care while she was at [facility] she elected to sign herself off of hospice care and she want medical care at that time subsequently her medications were restarted and the patient was treated medically she was just discharged from [facility] 24 hours ago and she went to her daughter's house however she became quite weak and extreme short of breath, she ended up coming to the emergency department at [facility] had a chest x-ray that showed left more than right pleural effusion and she was hypertensive, patient will be given Lasix 40 mg IV push every 12 hours, she will be seen in consultation by cardiology as well as by pulmonary for possible thoracentesis in the left side. 04/10: Patient has been seen and followed by pulmonary medicine with no plan for thoracentesis and continued IV diuretics. Patient has had good urine output over the past 24 hours. Repeat blood work reveals hemoglobin of 10.5. Sodium 135, CO2 31, BUN 12 and creatinine 1.16. Potassium 4.3, blood sugars running between 120 and 150. Patient has been afebrile, heart rate 64, blood pressure 110/65, pulse ox 96% on 4 L nasal cannula. Patient denies any chest pain or shortness of breath. Call from nursing staff in the afternoon for A. fib with RVR 130s and 140 bpm. Patient ordered for EKG, 1 extra dose of Lopressor 50 mg and cardiology consult. Patient is are on Xarelto chronically. Consult was added for Dr. Keith regarding patient's complaint of left thigh pain. 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 Recommendations are for Voltaren eyedrops twice daily and follow up with him in the office in 1 week. Yesterday afternoon, patient developed A. fib with RVR in the 140s. Patient was ordered for additional dose of metoprolol and cardiology consult. Patient was transferred to the selective care unit. Patient has been stable. He she was subsequently started on Cardizem drip and transition to normal sinus rhythm around midnight. Patient denies any new complaints today. I pain seems to be better. She states she is angry because she is sick. Discussed discharge planning is PT and OT have recommended subacute rehab. marketing communication manager has arranged be taken home care. Patient is willing to go back to [facility] for several weeks of subacute rehab. She has been afebrile, heart rate currently 67, blood pressure 120/58, pulse ox 95% on 4 L nasal cannula. Blood sugars run between 114 1132. Anticipate she will be ready for discharge tomorrow. 04/12: Patient is seen today on the selective care unit. She remains in a sinus rhythm. Heart rate is running in the 60s. Blood pressure 179/67, pulse ox 96% on 2 L nasal cannula. Patient states she is feeling tired today. She is not eating very much and requesting chocolate ensure which will be ordered. Plan is for discharge to [facility] tomorrow. IV Lasix will be discontinued. 04/13: Patient has been afebrile, heart rate 60s to 70s, a pressure this morning 174/74 but at nighttime 92/48. Pulse ox 99% on 2 L nasal cannula. Repeat blood work reveals sodium 140, potassium 4.3, chloride 104, CO2 31, BUN 27 creatinine 1.47. Patient complains of feeling tired but better from yesterday and last night. We will plan to decrease Aldactone to 12.5 mg and add IV fluids until she leaves this afternoon. Patient was feeling better by this afternoon and will be discharged. A repeat coronavirus testing ordered as required for discharge to [facility] which is negative. Patient will be discharged to [facility] once all arrangements are completed. Discharge diagnoses: 1. Acute systolic heart failure with bilateral pleural effusion left more than right. 2. Generalized weakness likely related to medical debility due to her cardiomyopathy as well as pleural effusion. 3. Bilateral pleural effusion left more than right. 4. Paroxysmal atrial fibrillation with episode of RVR. 5. History of coronary artery disease status post three-vessel CABG in 1995. 6. Carotid artery disease status post carotid endarterectomy. 7. Diabetes mellitus type 2, insulin requiring. 8. 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 9. Hyperlipidemia. 10. Chronic vertigo. 11. Gastroesophageal reflux disease. 12. COVID-19 infection not present. Discharge plan: [facility] under the care of Dr. Nash. Impression and plan of care have been directed as dictated by the signing physician. Nataliia Alejo nurse practitioner acting as scribe for signing physician. Patient Condition at Discharge: Good Plan - Discharge Summary Discharge Rx Participant: No New Discharge Prescriptions: New Spironolactone [Aldactone] 12.5 mg PO DAILY tab Acetaminophen Tab [Tylenol] 650 mg PO Q6HR PRN tab PRN Reason: Mild Pain Or Fever > 100.5 Diclofenac 0.1% Ophth Soln [Voltaren 0.1% Ophth Soln] 1 drops LEFT EYE QID ml Continue Insulin Detemir [Levemir Flextouch] 14 units SQ HS polyethylene glycoL 3350 [Miralax] 17 gm PO DAILY Pantoprazole [Protonix] 40 mg PO HS Lisinopril [Prinivil] 10 mg PO HS Ipratropium-Albuterol Nebulize [Duoneb 0.5 mg-3 mg/3 ml Soln] 3 ml INHALATION RT-QID PRN PRN Reason: Shortness Of Breath Simvastatin [Zocor] 20 mg PO HS Rivaroxaban [Xarelto] 15 mg PO HS Metoprolol Tartrate [Lopressor] 50 mg PO BID Linagliptin [Tradjenta] 5 mg PO DAILY Cholecalciferol [Vitamin D3 (25 Mcg = 1000 Iu)] 2,000 unit PO DAILY Hydrocodone/Acetaminophen [[place] 5-325] 1 tab PO TID PRN #9 tab PRN Reason: Pain ALPRAZolam [Xanax] 0.5 mg PO BID #6 tab Discontinued Lubiprostone [Amitiza] 24 mcg PO BID PRN PRN Reason: IF MIRALAX DOESN'T WORK amLODIPine [Norvasc] 5 mg PO DAILY Discharge Medication List Insulin Detemir [Levemir Flextouch] 14 units SQ HS 03/02/20 [History] Cholecalciferol [Vitamin D3 (25 Mcg = 1000 Iu)] 2,000 unit PO DAILY 04/08/20 [History] Ipratropium-Albuterol Nebulize [Duoneb 0.5 mg-3 mg/3 ml Soln] 3 ml INHALATION RT-QID PRN 04/08/20 [History] Linagliptin [Tradjenta] 5 mg PO DAILY 04/08/20 [History] Lisinopril [Prinivil] 10 mg PO HS 04/08/20 [History] Metoprolol Tartrate [Lopressor] 50 mg PO BID 04/08/20 [History] Pantoprazole [Protonix] 40 mg PO HS 04/08/20 [History] Rivaroxaban [Xarelto] 15 mg PO HS 04/08/20 [History] Simvastatin [Zocor] 20 mg PO HS 04/08/20 [History] polyethylene glycoL 3350 [Miralax] 17 gm PO DAILY 04/08/20 [History] ALPRAZolam [Xanax] 0.5 mg PO BID #6 tab 07/23/20 [Rx] Acetaminophen Tab [Tylenol] 650 mg PO Q6HR PRN tab 04/13/20 [Rx] Diclofenac 0.1% Ophth Soln [Voltaren 0.1% Ophth Soln] 1 drops LEFT EYE QID ml 04/13/20 [Rx] Hydrocodone/Acetaminophen [[place] 5-325] 1 tab PO TID PRN #9 tab 04/13/20 [Rx] Spironolactone [Aldactone] 12.5 mg PO DAILY tab 04/13/20 [Rx] Follow up Appointment(s)/Referral(s): [facility], [NON-STAFF] - 1 Week Marilyn Nash MD [Primary Care Provider] - 1 Week (at [facility]) Discharge Disposition: TRANSFER TO SNF/ECF
[2020-04-13] MEDS ORDERED: SODIUM CHLORIDE 0.9% 1,000 ML IV SCH (07:45)
[2020-04-13] MEDS ORDERED: SPIRONOLACTONE 25 MG TAB PO SCH (07:45)
[2020-04-13] MEDS: ALPRAZolam 0.5 MG TAB PO SCH (09:22)
[2020-04-13] MEDS: LINAGLIPTIN 5 MG TABLET PO SCH (09:23)
[2020-04-13] MEDS: METOPROLOL TARTRATE 50 MG TAB PO SCH (09:23)
[2020-04-13] MEDS: CHOLECALCIFEROL 1,000 UNIT TAB PO SCH (09:23)
[2020-04-13] MEDS: DICLOFENAC 0.1% OPHTH SOLN 2.5 ML BTL LEFT EYE SCH ×2 (09:24→13:05)
[2020-04-13] MEDS: polyethylene glycoL 3350 17 GM POWD.PACK PO SCH (09:29)
[2020-04-13 10:58] VITALS: BMI 25.9
[2020-04-13 12:02] LABS: Glucose,Whole Blood 131 mg/dL (75-99)
[2020-04-13 15:25] VITALS: BP 118/68; PULSE 59; RESP 18; TEMP 98.2
--- NOTE | 2020-04-13 15:56 | P.PN ---
Subjective This is Cristiane Palumbo PA-C dictating a progress note on this patient The patient was interviewed and examined by me as well as by Dr. Chauhan Case discussed with Dr. Chauhan and he agrees with the plan of care HPI/interval history Patient is an 89-year-old female with a history of PAF, CAD status post CABG, hypertension, chronic artery atherosclerosis status post endarterectomy, diabetes, and GI bleeding, chronic vertigo who presented with weakness and shortness of breath. She is being treated for CHF exacerbation. She went into atrial fibrillation and was placed on a Cardizem drip and then she converted to sinus rhythm. She remains in sinus rhythm today. Patient seen and examined resting in bed. Complains of being tired. States her breathing is "fine". Denies any chest pain. EXAMINATION Patient is afebrile, pulse in the high 50s, respirations 18, blood pressure 118/68, oxygen saturation 94% on 2 L nasal cannula Patient seen and examined resting in bed, in no acute distress, appears comfortable Lungs with very few crackles at the bases Heart is regular, systolic murmur audible No lower extremity edema REVIEW OF LABS, ECG Potassium 4.3, BUN 27, creatinine 1.47 IMPRESSION / ASSESSMENT: #1 systolic congestive heart failure acute on chronic, bilateral pleural effusions, improved #2 symptoms of generalized weakness #3 coronary artery disease with prior bypass surgery #4 diabetes #5 hypertension #6 hyperlipidemia #7 paroxysmal atrial fibrillation #8 anemia #9 chronic vertigo #10 carotid artery disease status post carotid endarterectom PLAN: The patient will be discharged today to [facility] Continue current cardiac medication regimen Objective - Vital Signs Vital signs: Vital Signs Temp 98.2 F 04/13/20 12:00 Pulse 59 L 04/13/20 12:00 Resp 18 04/13/20 12:00 BP 118/68 04/13/20 12:00 Pulse Ox 94 L 04/13/20 12:00 Intake & Output 04/12/20 04/13/20 04/13/20 18:59 06:59 18:59 Intake Total 90 672 Output Total 240 Balance 90 -240 672 Weight 66.5 kg Intake: Intake, IV Titration 200 Amount Sodium Chloride 0.9% 1, 200 000 ml @ 50 mls/hr IV . Q20H GENNY Rx#:[id number] Oral 90 472 Output: Urine 240 Other: Voiding Method Toilet Toilet Toilet Bedside Commode Bedside Commode Bedside Commode # Voids 2 1 0 # Bowel Movements 0 - Labs CBC & Chem 7: 04/10/20 05:25 04/13/20 06:27 Labs: Abnormal Lab Results - Last 24 Hours (Table) 04/12/20 04/12/20 04/13/20 Range/Units 16:49 20:21 06:27 Carbon Dioxide 31 H (22-30) mmol/L BUN 27 H (7-17) mg/dL Creatinine 1.47 H (0.52-1.04) mg/dL Glucose 101 H (74-99) mg/dL POC Glucose (mg/dL) 127 H 123 H (75-99) mg/dL 04/13/20 04/13/20 Range/Units 06:27 12:01 Carbon Dioxide (22-30) mmol/L BUN (7-17) mg/dL Creatinine (0.52-1.04) mg/dL Glucose (74-99) mg/dL POC Glucose (mg/dL) 116 H 131 H (75-99) mg/dL
--- NOTE | 2020-04-14 09:10 | CDI ---
Documentation Clarification Form Date: 04/14/20 From: Nancy Griffin CCS Phone: If you have a question about this query, please contact Danielle Martin, Mri Supervisor at [phone] between 8am and 5pm. Admit Date: 04/10/20 Discharge Date:04/13/20 Patient Name: Johanne Potter Visit Number: [id number] ATTENTION: The Clinical Documentation Specialists (CDI) and [facility] Coding Staff appreciate your assistance in clarifying documentation. Please respond to the clarification below the line at the bottom and electronically sign. The CDI & [facility] Coding staff will review the response and follow-up if needed. Please note: Queries are made part of the Legal Health Record. If you have any questions, please contact the author of this message via ITS. Dear Dr. Nash, Accelerated hypertension is documented in the H&P, PN, DS. H&P documents: Hypertension, hypertensive cardiovascular disease with accelerated hypertension.Continue metoprolol 50 mg orally twice every day, lisinopril 10 mg orally once every day at amlodipine 5 mg orally once every day. History/Risk Factors: CHF, HTN, DM, A/C respiratory failure Clinical Indicators: BP 193/66, 184/66 Vital Signs: BP 193/66, RR 18, W[place] 70, O2 Sat 98 In your professional opinion, can you please clarify accelerated hypertension? Hypertensive urgency Hypertensive emergency Other, please specify Unable to determine Hypertensive urgency MTDD
== END 2020-04-13 14:52 | DRG 291 ==
LOC: EC 16:49 → 5NMEDONC 18:59 → OBSVTOIN 04-10 15:44 → 3SCARD 04-10 16:32
PROVIDERS: ADMIT Internal Medicine; ATTEND Internal Medicine
DX: I11.0 Hypertensive heart disease with heart failure (principal); J96.21 Acute and chronic respiratory failure with hypoxia; H35.82 Retinal ischemia; Z11.59 Encounter for screening for other viral diseases; I08.2 Rheumatic disorders of both aortic and tricuspid valves; E11.36 Type 2 diabetes mellitus with diabetic cataract; Z99.81 Dependence on supplemental oxygen; I42.9 Cardiomyopathy, unspecified; I50.23 Acute on chronic systolic (congestive) heart failure; Z79.4 Long term (current) use of insulin; I48.0 Paroxysmal atrial fibrillation; E11.39 Type 2 diabetes mellitus with other diabetic ophthalmic complication; E78.5 Hyperlipidemia, unspecified; E87.5 Hyperkalemia; I25.10 Atherosclerotic heart disease of native coronary artery without angina pectoris; K57.90 Diverticulosis of intestine, part unspecified, without perforation or abscess without bleeding; R42 Dizziness and giddiness; H26.9 Unspecified cataract; R53.81 Other malaise; K21.9 Gastro-esophageal reflux disease without esophagitis; H57.12 Ocular pain, left eye; D64.9 Anemia, unspecified; I16.0 Hypertensive urgency; M79.652 Pain in left thigh; R32 Unspecified urinary incontinence; E66.9 Obesity, unspecified; R26.9 Unspecified abnormalities of gait and mobility; I25.2 Old myocardial infarction; Z68.26 Body mass index [BMI] 26.0-26.9, adult; Z71.3 Dietary counseling and surveillance; Z79.899 Other long term (current) drug therapy; Z79.01 Long term (current) use of anticoagulants; Z95.1 Presence of aortocoronary bypass graft; Z98.890 Other specified postprocedural states; Z96.7 Presence of other bone and tendon implants; Z87.81 Personal history of (healed) traumatic fracture; Z87.891 Personal history of nicotine dependence; Z87.19 Personal history of other diseases of the digestive system; Z88.8 Allergy status to other drugs, medicaments and biological substances; Z80.8 Family history of malignant neoplasm of other organs or systems
CPT/HCPCS: 36415; 71045; 71046; 80048; 80053; 81001; 83605; 83735; 83880; 84100; 84443; 84484; 85025; 85610; 85652; 85730; 87635; 93005; 94640; 94760; 99285

== ENCOUNTER 2020-05-10 14:16 | Emergency (ER) | payer MEDICARE, BC ==
[2020-05-10 14:20] VITALS: TEMP 98.1
[2020-05-10] MEDS ORDERED: PROPARACAINE 0.5% OPHTH DROPS 15 ML BTL BOTH EYES STA (14:49)
[2020-05-10] MEDS ORDERED: ONDANSETRON 4 MG/2 ML VIAL IVP STA (15:25)
[2020-05-10] MEDS ORDERED: MORPHINE SULFATE 2 MG/ML SYRINGE IVP STA ×2 (15:25→17:40)
[2020-05-10 15:45] LABS: Anisocytosis Moderate; Basophils # (A) 0.1 k/uL (0-0.2); Basophils % (A) 1 %; Eosinophils # (A) 0.2 k/uL (0-0.7); Eosinophils % (A) 3 %; HCT 37.7 % (34.0-46.0); HGB 11.1 gm/dL (11.4-16.0); Hypochromasia Marked; Lymphocytes % (A) 13 %; MCH 23.9 pg (25.0-35.0); MCHC 29.4 g/dL (31.0-37.0); MCV 81.3 fL (80.0-100.0); Mean Platelet Volume 8.8; Microcytosis Moderate; Monocytes # (A) 0.4 k/uL (0-1.0); Monocytes % (A) 6 %; Neutrophils % (A) 76 %; Platelet Count 273 k/uL (150-450); RBC 4.63 m/uL (3.80-5.40); RDW 23.4 % (11.5-15.5); WBC 7.9 k/uL (3.8-10.6)
[2020-05-10 16:04] LABS: Albumin 3.9 g/dL (3.5-5.0); C Reactive Protein 5.4 mg/L (<10.0); Calcium 9.4 mg/dL (8.4-10.2); Potassium 4.3 mmol/L (3.5-5.1); Total Bilirubin 0.6 mg/dL (0.2-1.3); Total Protein 6.9 g/dL (6.3-8.2)
--- NOTE | 2020-05-10 16:05 | CT ---
EXAMINATION TYPE: CT brain wo con DATE OF EXAM: 05/10/2020 HISTORY: Left eye pain, headache. CT DLP: 1095.4 mGycm. Automated Exposure Control for Dose Reduction was Utilized. TECHNIQUE: CT scan of the head is performed without contrast. COMPARISON: CT September 11, 2018. FINDINGS: There is no acute intracranial hemorrhage or midline shift identified. There is diffuse v entricular and sulcal prominence consistent with diffuse age-related cerebral atrophy. There is low- attenuation in the periventricular white matter consistent with chronic small vessel ischemic change. Scleral calcification bilateral globes. Visualized paranasal sinuses are clear. IMPRESSION: No acute intracranial hemorrhage or midline shift. There is fairly moderate diffuse cer ebral atrophy and chronic small vessel ischemic change redemonstrated. No significant change from pr ior.
[2020-05-10 16:55] LABS: Erythrocyte Sedimentation Rate 28 mm/hr (0-20)
[2020-05-10] MEDS ORDERED: SODIUM CHLORIDE 0.9% 500 ML 500 ML IV ONE (16:57)
[2020-05-10] MEDS ORDERED: SODIUM CHLORIDE 0.9% 500 ML 250 ML IV ONE (17:40)
--- NOTE | 2020-05-10 17:43 | ED ---
General Adult HPI - General Chief complaint: Eye Problems Stated complaint: Eye Pain Time Seen by Provider: 05/10/20 14:40 Source: patient, family Mode of arrival: wheelchair Limitations: no limitations - History of Present Illness Initial comments: 89-year-old female patient presents to the emergency department today for evaluation of eye pain. Patient states she's been having intermittent eye pain for the last few months. States it first started only on the right side and now has been happening on the left eye as well. States the pain as an intense sharp pain. She denies any light sensitivity, blurred vision, or double vision. States that she does get a headache with this. Denies nausea or vomiting. Denies numbness, tingling, weakness to her extremities. Patient did have 2 minor head injuries over the last couple of days. Denies any loss of consciousness with the injuries. Denies any chest pain, shortness of breath, constipation, or diarrhea. She has been evaluated by ophthalmology in the past for this, was diagnosed with macular degeneration, and has been doing Diflocenac drops to the eyes. States the Diflocenac neck drops are not helping any longer. Patient denies any recent rash, fever, chills, cough, shortness of breath, chest pain, abdominal pain, back pain, numbness, tingling, hematuria, dysuria, urinary urgency, urinary frequency, or any other complaints. - Related Data Home Medications Medication Instructions Recorded Confirmed Insulin Detemir [Levemir Flextouch] 14 units SQ HS 03/02/20 04/08/20 Cholecalciferol [Vitamin D3 (25 2,000 unit PO DAILY 04/08/20 04/08/20 Mcg = 1000 Iu)] Ipratropium-Albuterol Nebulize 3 ml INHALATION RT-QID PRN 04/08/20 04/08/20 [Duoneb 0.5 mg-3 mg/3 ml Soln] Linagliptin [Tradjenta] 5 mg PO DAILY 04/08/20 04/08/20 Lisinopril [Prinivil] 10 mg PO HS 04/08/20 04/08/20 Metoprolol Tartrate [Lopressor] 50 mg PO BID 04/08/20 04/08/20 Pantoprazole [Protonix] 40 mg PO HS 04/08/20 04/08/20 Rivaroxaban [Xarelto] 15 mg PO HS 04/08/20 04/08/20 Simvastatin [Zocor] 20 mg PO HS 04/08/20 04/08/20 polyethylene glycoL 3350 [Miralax] 17 gm PO DAILY 04/08/20 04/08/20 Previous Rx's Medication Instructions Recorded ALPRAZolam [Xanax] 0.5 mg PO BID #6 tab 04/13/20 Acetaminophen Tab [Tylenol] 650 mg PO Q6HR PRN tab 04/13/20 Diclofenac 0.1% Ophth Soln 1 drops LEFT EYE QID ml 04/13/20 [Voltaren 0.1% Ophth Soln] Hydrocodone/Acetaminophen [[place] 1 tab PO TID PRN #9 tab 04/13/20 5-325] Spironolactone [Aldactone] 12.5 mg PO DAILY tab 04/13/20 Allergies Allergy/AdvReac Type Severity Reaction Status Date / Time zolpidem [From Ambien] AdvReac Hallucinati Verified 05/10/20 14:20 ons Review of Systems ROS Statement: Those systems with pertinent positive or pertinent negative responses have been documented in the HPI. ROS Other: All systems not noted in ROS Statement are negative. Past Medical History Past Medical History: Coronary Artery Disease (CAD), Chest Pain / Angina, Diabetes Mellitus, Hyperlipidemia, Hypertension, Myocardial Infarction ([place]), Syncope Additional Past Medical History / Comment(s): DM type II, vertigo/weakness past 5 years and pt states she has had tests but no one knows why, weakness, gait disturbance, falls, bilateral cataracts, dehydration Last Myocardial Infarction Date:: 1995 History of Any Multi-Drug Resistant Organisms: None Reported Past Surgical History: Adenoidectomy, Coronary Bypass/CABG, Heart Catheterization, Orthopedic Surgery, Tonsillectomy Additional Past Surgical History / Comment(s): 3 vessel CABG 1995 in [place], R carotid endartectomy 2016, ORIF L ankle d/t fracture. Past Anesthesia/Blood Transfusion Reactions: No Reported Reaction Past Psychological History: No Psychological Hx Reported Smoking Status: Former smoker Past Alcohol Use History: None Reported Past Drug Use History: None Reported - Past Family History Mother Family Medical History: No Reported History Additional Family Medical History / Comment(s): Mother at age 82 from old age. Father Family Medical History: No Reported History Additional Family Medical History / Comment(s): Father from old age and pat sandi does not recall his age or any medical problems. Son(s) Family Medical History: Cancer Additional Family Medical History / Comment(s): Patient has one son with history of throat cancer in remission. Patient has one daughter with no major medical problems. Patient does not have any brothers or sisters. General Exam Limitations: no limitations General appearance: alert, in no apparent distress, other (This is a well- developed, well-nourished elderly female patient in no acute distress. Vital signs upon presentation are temperature 98.1F, pulse 67, respirations 20, blood pressure 189/73, pulse ox 96% on room air.) Head exam: Present: other (No temporal tenderness or temporal artery hardening.) Eye exam: Present: normal appearance, PERRL, EOMI, other (Pressure to the right eye is 10 mmHg, pressure to the left eye is 11 mmHg.). Absent: scleral icterus, conjunctival injection, nystagmus, periorbital swelling ENT exam: Present: normal exam, normal oropharynx, mucous membranes moist Respiratory exam: Present: normal lung sounds bilaterally. Absent: respiratory distress, wheezes, rales, rhonchi, stridor Cardiovascular Exam: Present: regular rate, normal rhythm, normal heart sounds. Absent: systolic murmur, diastolic murmur, rubs, gallop, clicks GI/Abdominal exam: Present: soft, normal bowel sounds. Absent: distended, tenderness, guarding, rebound, rigid Neurological exam: Present: alert, oriented X3, CN II-XII intact Psychiatric exam: Present: normal affect, normal mood Skin exam: Present: warm, dry, intact, normal color. Absent: rash Course Vital Signs 05/10/20 14:18 Temperature 98.1 F Pulse Rate 67 Respiratory 20 Rate Blood Pressure 189/73 O2 Sat by Pulse 96 Oximetry Medical Decision Making - Medical Decision Making 89-year-old female patient presented to the emergency department today for evaluation of left eye pain. Physical examination was relatively unremarkable. She is neurologically intact with no focal deficits. She had no temporal artery tenderness or induration noted. Labs reviewed and were unremarkable other than a mildly elevated ESR at 28. CRP is negative. White blood cell count is normal. CT brain was negative. Patient was given IV medication here in the emergency department. Upon reevaluation she does report improvement of her symptoms. She does have an appointment with her fibrous wallboard inspector tomorrow morning at 11 AM. We'll discharge to follow-up with him as directed. She is instructed to follow-up with her primary care physician for recheck in 1-2 days. Return parameters were discussed in detail. She verbalizes understanding and agrees with this plan. - Lab Data Result diagrams: 05/10/20 15:40 05/10/20 15:32 Lab Results 05/10/20 05/10/20 Range/Units 15:32 15:40 WBC 7.9 (3.8-10.6) k/uL RBC 4.63 (3.80-5.40) m/uL Hgb 11.1 L (11.4-16.0) gm/dL Hct 37.7 (34.0-46.0) % MCV 81.3 (80.0-100.0) fL MCH 23.9 L (25.0-35.0) pg MCHC 29.4 L (31.0-37.0) g/dL RDW 23.4 H (11.5-15.5) % Plt Count 273 (150-450) k/uL Neutrophils % 76 % Lymphocytes % 13 % Monocytes % 6 % Eosinophils % 3 % Basophils % 1 % Neutrophils # 6.0 (1.3-7.7) k/uL Lymphocytes # 1.0 (1.0-4.8) k/uL Monocytes # 0.4 (0-1.0) k/uL Eosinophils # 0.2 (0-0.7) k/uL Basophils # 0.1 (0-0.2) k/uL Hypochromasia Marked Anisocytosis Moderate Microcytosis Moderate ESR 28 H (0-20) mm/hr Sodium 139 (137-145) mmol/L Potassium 4.3 (3.5-5.1) mmol/L Chloride 105 (98-107) mmol/L Carbon Dioxide 28 (22-30) mmol/L Anion Gap 6 mmol/L BUN 18 H (7-17) mg/dL Creatinine 1.30 H (0.52-1.04) mg/dL Est GFR (CKD-EPI)AfAm 43 (>60 ml/min/1.73 sqM) Est GFR (CKD-EPI)NonAf 37 (>60 ml/min/1.73 sqM) Glucose 139 H (74-99) mg/dL Calcium 9.4 (8.4-10.2) mg/dL Total Bilirubin 0.6 (0.2-1.3) mg/dL AST 26 (14-36) U/L ALT 14 (4-34) U/L Alkaline Phosphatase 52 (38-126) U/L C-Reactive Protein 5.4 (<10.0) mg/L Total Protein 6.9 (6.3-8.2) g/dL Albumin 3.9 (3.5-5.0) g/dL - Radiology Data Radiology results: report reviewed, image reviewed CT brain without contrast was obtained. Report is reviewed in its entirety. Impression by Dr. Rose shows no acute intracranial hemorrhage or midline shift. There is clearly moderate diffuse cerebral atrophy and chronic small vessel is chemic change redemonstrated. No significant change from prior. Disposition Clinical Impression: Eye pain Disposition: HOME SELF-CARE Condition: Good Instructions (If sedation given, give patient instructions): Eye Pain (ED) Additional Instructions: Follow-up with your fibrous wallboard inspector tomorrow for recheck as you have planned. Continue home medications for pain. Return to the emergency department immediately for any new, worsening, or concerning symptoms. Is patient prescribed a controlled substance at d/c from ED?: No Referrals: Marilyn Nash MD [Primary Care Provider] - 1-2 days Jose Miguel Laurent MD [STAFF PHYSICIAN] - 1-2 days Time of Disposition: 17:43
[2020-05-10 18:30] VITALS: BP 175/49; PULSE 61; RESP 18
== END 2020-05-10 18:28 | disposition home or self-care (01) ==
LOC: EC 14:16
DX: H57.13 Ocular pain, bilateral (principal); R70.0 Elevated erythrocyte sedimentation rate; I10 Essential (primary) hypertension; E11.36 Type 2 diabetes mellitus with diabetic cataract; I25.110 Atherosclerotic heart disease of native coronary artery with unstable angina pectoris; E78.5 Hyperlipidemia, unspecified; I25.2 Old myocardial infarction; Z79.84 Long term (current) use of oral hypoglycemic drugs; Z79.4 Long term (current) use of insulin; Z79.899 Other long term (current) drug therapy; Z79.01 Long term (current) use of anticoagulants; Z88.8 Allergy status to other drugs, medicaments and biological substances; Z87.891 Personal history of nicotine dependence
CPT/HCPCS: 36415; 80053; 85652; 85025; 86140; 70450; 99284; 96374; 96376; 96375; J2405; J2270

== ENCOUNTER 2020-05-23 12:28 | Inpatient (IN) | payer MEDICARE, BC ==
[2020-05-23] MEDS ORDERED: SODIUM CHLORIDE 0.9% 1,000 ML IV STA (12:54)
--- NOTE | 2020-05-23 12:55 | ED ---
Altered Mental Status HPI - General Chief Complaint: Altered Mental Status Stated Complaint: Confused,left eye pink Time Seen by Provider: 05/23/20 12:47 Source: patient, RN notes reviewed, old records reviewed Mode of arrival: ambulatory Limitations: no limitations - History of Present Illness Initial Comments: This is an 81-year-old female DF for evaluation she presents today for evaluation regards to significant amount of confusion earlier today patient was having difficulty urinating in the right main. Difficulty finding her words. Blood pressure also to be significantly elevated. No history of same, patient complaining of headache and eye pain MD Complaint: altered mental status, confusion (CONFUSION has resolved) -: hour(s) Consistency of Symptoms: waxing and waning Associated Symptoms: denies other symptoms - Related Data Home Medications Medication Instructions Recorded Confirmed Insulin Detemir [Levemir Flextouch] 14 units SQ HS 03/02/20 05/23/20 Ipratropium-Albuterol Nebulize 3 ml INHALATION RT-QID PRN 04/08/20 05/23/20 [Duoneb 0.5 mg-3 mg/3 ml Soln] Linagliptin [Tradjenta] 5 mg PO DAILY 04/08/20 05/23/20 Lisinopril [Prinivil] 5 mg PO HS 04/08/20 05/23/20 Metoprolol Tartrate [Lopressor] 50 mg PO BID 04/08/20 05/23/20 Pantoprazole [Protonix] 40 mg PO HS 04/08/20 05/23/20 Rivaroxaban [Xarelto] 15 mg PO HS 04/08/20 05/23/20 Simvastatin [Zocor] 20 mg PO HS 04/08/20 05/23/20 polyethylene glycoL 3350 [Miralax] 17 gm PO DAILY 04/08/20 05/23/20 ALPRAZolam [Xanax] 0.5 mg PO BID@1000,1700 05/23/20 05/23/20 Cefuroxime [Ceftin] 250 mg PO BID@0800,2000 05/23/20 05/23/20 Diclofenac 0.1% Ophth Soln 1 drop LEFT EYE QID 05/23/20 05/23/20 [Voltaren 0.1% Ophth Soln] Ferrous Sulfate [Feosol] 325 mg PO BID 05/23/20 05/23/20 Spironolactone [Aldactone] 12.5 mg PO DAILY PRN 05/23/20 05/23/20 Vit C/E/Zn/Coppr/Lutein/Zeaxan 1 cap PO BID@1000,1700 05/23/20 05/23/20 [Preservision Areds 2 Softgel] Previous Rx's Medication Instructions Recorded Acetaminophen Tab [Tylenol] 650 mg PO Q6HR PRN tab 04/13/20 Hydrocodone/Acetaminophen [[place] 1 tab PO TID PRN #9 tab 04/13/20 5-325] Allergies Allergy/AdvReac Type Severity Reaction Status Date / Time zolpidem [From Ambien] AdvReac Hallucinati Verified 05/23/20 14:24 ons Review of Systems ROS Statement: Those systems with pertinent positive or pertinent negative responses have been documented in the HPI. ROS Other: All systems not noted in ROS Statement are negative. Past Medical History Past Medical History: Coronary Artery Disease (CAD), Chest Pain / Angina, Diabetes Mellitus, Hyperlipidemia, Hypertension, Myocardial Infarction ([place]), Syncope Additional Past Medical History / Comment(s): DM type II, vertigo/weakness past 5 years and pt states she has had tests but no one knows why, weakness, gait disturbance, falls, bilateral cataracts, dehydration Last Myocardial Infarction Date:: 1995 History of Any Multi-Drug Resistant Organisms: None Reported Past Surgical History: Adenoidectomy, Coronary Bypass/CABG, Heart Catheterization, Orthopedic Surgery, Tonsillectomy Additional Past Surgical History / Comment(s): 3 vessel CABG 1995 in [place], carotid endartectomy 2016, ORIF L ankle d/t fracture. Past Anesthesia/Blood Transfusion Reactions: No Reported Reaction Past Psychological History: No Psychological Hx Reported Smoking Status: Former smoker Past Alcohol Use History: None Reported Past Drug Use History: None Reported - Past Family History Mother Family Medical History: No Reported History Additional Family Medical History / Comment(s): Mother at age 82 from old age. Father Family Medical History: No Reported History Additional Family Medical History / Comment(s): Father from old age and patient does not recall his age or any medical problems. Son(s) Family Medical History: Cancer Additional Family Medical History / Comment(s): Patient has one son with history of throat cancer in remission. Patient has one daughter with no major medical problems. Patient does not have any brothers or sisters. General Exam Limitations: no limitations General appearance: alert, in no apparent distress Head exam: Present: atraumatic, normocephalic, normal inspection Eye exam: Present: normal appearance, PERRL, EOMI. Absent: scleral icterus, conjunctival injection, periorbital swelling ENT exam: Present: normal exam, mucous membranes moist Neck exam: Present: normal inspection. Absent: tenderness, meningismus, lymphadenopathy Respiratory exam: Present: normal lung sounds bilaterally. Absent: respiratory distress, wheezes, rales, rhonchi, stridor Cardiovascular Exam: Present: regular rate, normal rhythm, normal heart sounds. Absent: systolic murmur, diastolic murmur, rubs, gallop, clicks GI/Abdominal exam: Present: soft, normal bowel sounds. Absent: distended, tenderness, guarding, rebound, rigid Extremities exam: Present: normal inspection, full ROM, normal capillary refill. Absent: tenderness, pedal edema, joint swelling, calf tenderness Back exam: Present: normal inspection Neurological exam: Present: alert, oriented X3, CN II-XII intact Psychiatric exam: Present: normal affect, normal mood Skin exam: Present: warm, dry, intact, normal color. Absent: rash Course Vital Signs 05/23/20 05/23/20 05/23/20 12:38 12:58 13:00 Temperature 98.3 F Pulse Rate 64 60 57 L Respiratory 18 Rate Blood Pressure 126/80 O2 Sat by Pulse 96 96 Oximetry 05/23/20 05/23/20 05/23/20 13:03 13:15 13:30 Temperature Pulse Rate 59 L 56 L 53 L Respiratory 16 Rate Blood Pressure 223/70 223/70 O2 Sat by Pulse 97 97 Oximetry 05/23/20 05/23/20 05/23/20 14:00 14:07 14:15 Temperature Pulse Rate 60 55 L Respiratory 18 Rate Blood Pressure 217/66 226/104 226/104 O2 Sat by Pulse 98 98 Oximetry 05/23/20 05/23/20 05/23/20 14:34 15:00 15:10 Temperature Pulse Rate 82 57 L 58 L Respiratory 19 Rate Blood Pressure 225/67 165/56 163/57 O2 Sat by Pulse 96 97 97 Oximetry 05/23/20 05/23/20 05/23/20 15:20 15:30 15:40 Temperature Pulse Rate 57 L 58 L 56 L Respiratory Rate Blood Pressure 163/56 163/60 158/50 O2 Sat by Pulse 98 98 Oximetry 05/23/20 05/23/20 05/23/20 15:50 16:00 16:10 Temperature Pulse Rate 56 L 56 L 56 L Respiratory Rate Blood Pressure 148/50 152/48 O2 Sat by Pulse 91 L 94 L 95 Oximetry 05/23/20 05/23/20 16:30 16:40 Temperature Pulse Rate 57 L 56 L Respiratory Rate Blood Pressure 152/48 152/48 O2 Sat by Pulse 94 L 91 L Oximetry - Reevaluation(s) Reevaluation #1: Medical record is reviewed Patient's blood pressure currently improved No recurrent neurological symptoms Patient is asymptomatic headache is now improved - Consultations Consultation #1: Will admit to Dr. Nash Medical Decision Making - Medical Decision Making 81 female DF for evaluation patient for evaluation regards to TIA symptoms, patient also with chronic headache chronic eye pain we'll admit patient for continued care - Lab Data Result diagrams: 05/23/20 13:02 05/23/20 13:02 Lab Results 05/23/20 05/23/20 05/23/20 Range/Units 13:02 13:02 13:02 WBC 8.5 (3.8-10.6) k/uL RBC 4.76 (3.80-5.40) m/uL Hgb 11.8 (11.4-16.0) gm/dL Hct 39.9 (34.0-46.0) % MCV 83.9 (80.0-100.0) fL MCH 24.8 L (25.0-35.0) pg MCHC 29.6 L (31.0-37.0) g/dL RDW 23.1 H (11.5-15.5) % Plt Count 267 (150-450) k/uL Neutrophils % 67 % Lymphocytes % 17 % Monocytes % 8 % Eosinophils % 4 % Basophils % 1 % Neutrophils # 5.7 (1.3-7.7) k/uL Lymphocytes # 1.5 (1.0-4.8) k/uL Monocytes # 0.7 (0-1.0) k/uL Eosinophils # 0.4 (0-0.7) k/uL Basophils # 0.1 (0-0.2) k/uL Hypochromasia Marked Anisocytosis Moderate Microcytosis Moderate PT 12.4 H (9.0-12.0) sec INR 1.2 H (<1.2) APTT 29.3 (22.0-30.0) sec Sodium 140 (137-145) mmol/L Potassium 4.0 (3.5-5.1) mmol/L Chloride 105 (98-107) mmol/L Carbon Dioxide 28 (22-30) mmol/L Anion Gap 7 mmol/L BUN 14 (7-17) mg/dL Creatinine 1.11 H (0.52-1.04) mg/dL Est GFR (CKD-EPI)AfAm 51 (>60 ml/min/1.73 sqM) Est GFR (CKD-EPI)NonAf 45 (>60 ml/min/1.73 sqM) Glucose 94 (74-99) mg/dL Calcium 9.3 (8.4-10.2) mg/dL Phosphorus 3.4 (2.5-4.5) mg/dL Magnesium 2.0 (1.6-2.3) mg/dL Total Bilirubin 0.8 (0.2-1.3) mg/dL AST 27 (14-36) U/L ALT 13 (4-34) U/L Alkaline Phosphatase 44 (38-126) U/L Troponin I (0.000-0.034) ng/mL Total Protein 6.5 (6.3-8.2) g/dL Albumin 3.7 (3.5-5.0) g/dL 05/23/20 Range/Units 13:02 WBC (3.8-10.6) k/uL RBC (3.80-5.40) m/uL Hgb (11.4-16.0) gm/dL Hct (34.0-46.0) % MCV (80.0-100.0) fL MCH (25.0-35.0) pg MCHC (31.0-37.0) g/dL RDW (11.5-15.5) % Plt Count (150-450) k/uL Neutrophils % % Lymphocytes % % Monocytes % % Eosinophils % % Basophils % % Neutrophils # (1.3-7.7) k/uL Lymphocytes # (1.0-4.8) k/uL Monocytes # (0-1.0) k/uL Eosinophils # (0-0.7) k/uL Basophils # (0-0.2) k/uL Hypochromasia Anisocytosis Microcytosis PT (9.0-12.0) sec INR (<1.2) APTT (22.0-30.0) sec Sodium (137-145) mmol/L Potassium (3.5-5.1) mmol/L Chloride (98-107) mmol/L Carbon Dioxide (22-30) mmol/L Anion Gap mmol/L BUN (7-17) mg/dL Creatinine (0.52-1.04) mg/dL Est GFR (CKD-EPI)AfAm (>60 ml/min/1.73 sqM) Est GFR (CKD-EPI)NonAf (>60 ml/min/1.73 sqM) Glucose (74-99) mg/dL Calcium (8.4-10.2) mg/dL Phosphorus (2.5-4.5) mg/dL Magnesium (1.6-2.3) mg/dL Total Bilirubin (0.2-1.3) mg/dL AST (14-36) U/L ALT (4-34) U/L Alkaline Phosphatase (38-126) U/L Troponin I <0.012 (0.000-0.034) ng/mL Total Protein (6.3-8.2) g/dL Albumin (3.5-5.0) g/dL - EKG Data -: EKG Interpreted by Me (EKG shows sinus bradycardia rate of 58 MI 162 QRS 96 QTc 467) - Radiology Data Radiology results: report reviewed (CT brain negative for acute disease), image reviewed Disposition Clinical Impression: Visual disturbance, Headache, Altered mental status Disposition: HOME SELF-CARE Condition: Good Instructions (If sedation given, give patient instructions): Altered Mental Status (ED), Eye Pain (ED) Is patient prescribed a controlled substance at d/c from ED?: No Referrals: Marilyn Nash MD [Primary Care Provider] - 1-2 days
[2020-05-23] MEDS ORDERED: MORPHINE SULFATE 4 MG/ML SYRINGE IVP STA (13:00)
[2020-05-23 13:27] LABS: Anisocytosis Moderate; Basophils # (A) 0.1 k/uL (0-0.2); Basophils % (A) 1 %; Eosinophils # (A) 0.4 k/uL (0-0.7); Eosinophils % (A) 4 %; HCT 39.9 % (34.0-46.0); HGB 11.8 gm/dL (11.4-16.0); Hypochromasia Marked; Lymphocytes # (A) 1.5 k/uL (1.0-4.8); Lymphocytes % (A) 17 %; MCH 24.8 pg (25.0-35.0); MCHC 29.6 g/dL (31.0-37.0); MCV 83.9 fL (80.0-100.0); Mean Platelet Volume 8.6; Microcytosis Moderate; Monocytes # (A) 0.7 k/uL (0-1.0); Monocytes % (A) 8 %; Neutrophils # (A) 5.7 k/uL (1.3-7.7); Neutrophils % (A) 67 %; Platelet Count 267 k/uL (150-450); RBC 4.76 m/uL (3.80-5.40); RDW 23.1 % (11.5-15.5); WBC 8.5 k/uL (3.8-10.6)
[2020-05-23 13:28] LABS: INR 1.2 (<1.2); Partial Thromboplastin Time 29.3 sec (22.0-30.0); Prothrombin Time 12.4 sec (9.0-12.0)
[2020-05-23 13:30] LABS: Albumin 3.7 g/dL (3.5-5.0); Calcium 9.3 mg/dL (8.4-10.2); Phosphorus 3.4 mg/dL (2.5-4.5); Total Bilirubin 0.8 mg/dL (0.2-1.3); Total Protein 6.5 g/dL (6.3-8.2)
--- NOTE | 2020-05-23 13:58 | CT ---
EXAMINATION TYPE: CT brain wo con DATE OF EXAM: 05/23/2020 HISTORY: Weakness CT DLP: 1100.4 mGycm. Automated Exposure Control for Dose Reduction was Utilized. TECHNIQUE: CT scan of the head is performed without contrast. COMPARISON: CT brain May 10, 2020. FINDINGS: There is no acute intracranial hemorrhage or midline shift identified. There is diffuse v entricular and sulcal prominence consistent with diffuse age-related cerebral atrophy. There is low- attenuation in the periventricular white matter consistent with chronic small vessel ischemic change. Occasional punctate scattered calcification redemonstrated. Scleral calcification bilateral globes d emonstrated. Visualized paranasal sinuses are clear. IMPRESSION: No acute intracranial hemorrhage or midline shift. There is moderate diffuse cerebral a trophy and chronic small vessel ischemic change redemonstrated. No significant change from prior.
--- NOTE | 2020-05-23 14:12 | XR ---
EXAMINATION TYPE: XR Hip LT and AP Pelvis DATE OF EXAM: 05/23/2020 COMPARISON: Pelvic x-ray June 18, 2018. HISTORY: Pain after fall injury. TECHNIQUE: A single AP view of the pelvis is obtained. Two views of the left hip are obtained. FINDINGS: There is no acute fracture/dislocation evident in the pelvis. The sacroiliac joints appea r symmetric and are felt to within normal limits. [id number] axial joint space loss in both hi ps is redemonstrated. Pubic symphysis is intact. Vascular calcification in the iliac arteries extendi ng into bilateral groin region is redemonstrated. Two views of left hip show no acute fracture or dislocation. No focal lytic or sclerotic lesion seen in the proximal left femur. The overlying soft tissue is unremarkable. IMPRESSION: There is no acute fracture or dislocation in the pelvis or left hip.
[2020-05-23] MEDS ORDERED: LABETALOL 5 MG/ML VIAL MDV IVP STA (14:35)
[2020-05-23] MEDS ORDERED: MORPHINE SULFATE 4 MG/ML SYRINGE IVP PRN (14:35)
[2020-05-23] MEDS: SODIUM CHLORIDE 0.9% 1,000 ML IV SCH ×2 (14:52→21:21)
[2020-05-23] MEDS ORDERED: hydrALAZINE HCL 20 MG/ML 1 ML VIAL IVP STA (14:54)
[2020-05-23] MEDS ORDERED: IPRATROPIUM-ALBUTEROL 3 ML NEB INHALATION PRN (18:59)
[2020-05-23] MEDS ORDERED: SPIRONOLACTONE 25 MG TAB PO PRN (18:59)
[2020-05-23] MEDS ORDERED: HYDROcodone/APAP 5-325MG 1 EACH TAB PO PRN (18:59)
[2020-05-23] MEDS ORDERED: ACETAMINOPHEN TAB 325 MG TAB PO PRN (18:59)
--- NOTE | 2020-05-23 18:59 | P.HPIM ---
History of Present Illness H&P Date: 05/23/20 Chief Complaint: TIA/ left eye pain. 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, patient was recently hospitalized at [facility] in February 2020 where she was admitted for increased dizziness and lightheadedness and underwent upper and lower endoscopy that showed initially Schatzki's ring with diverticulosis and 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 that was treated with argon treatment, patient also during the last hospital admission went into atrial fibrillation with rapid ventricular response she ended up with acute systolic heart failure underwent echocardiogram that showed ejection fraction of 30-35%, with a mild aortic stenosis and aortic sclerosis, no mitral regurgitation but there was mild tricuspid regurgitation, patient was treated with the heparin drip and subsequently she was switched back to Xarelto 15 mg orally once every day, patient became quite short of breath and she was r equiring BiPAP treatment however she elected to go into hospice care she went back to [facility] under hospice care while she was at [facility] she elected to sign herself off of hospice care and she want medical care at that time subsequently her medications were restarted and the patient was treated medically she was just discharged from [facility] 24 hours ago and she went to her daughter's house however she became quite weak and extreme short of breath and she was admitted to the hospital for elective severe bilateral pleural effusion with acute systolic heart failure and was treated with IV diuretics and was seen in consultation by cardiology as well as pulmonary medicine, and she was discharged [facility] for physical therapy rehabilitation she is closed left [facility] and was seen in my office a few days ago and she was doing fine today she developed to have a significant in the left eye associated with increased confusion and the patient could not find the right words she was complaining of increased headache, the pain got out of hand so her daughter contacted her eye doctor who told her to take her to the emergency department for evaluation, patient had a computed tomography scan of the brain did not show any evidence of acute infarct or bleed, it did show generalized atrophy with small vessel disease, she had an x-ray of the pelvis and head and was negative for acute fracture patient's daughter stated that she fell in the bathroom and she had to help her up without any injury, patient was recently diagnosed with macular degeneration as well as she was started on PreserVision as well. Review of Systems Constitutional: Reports anorexia, Reports chronic headaches, Reports chronic pain, Reports fatigue, Reports weakness, Reports weight loss Eyes: left pain, bilateral blurred vision Ears: deny: decreased hearing Ears, nose, mouth and throat: Denies dysphagia, Denies neck lump, Denies sore throat, Denies vertigo Cardiovascular: Denies chest pain, Denies claudication, Denies decreased exercise tolerance, Denies lightheadedness, Denies rapid heart beat, Denies shortness of breath, Denies syncope Respiratory: Denies congestion, Denies cough, Denies cough with sputum, Denies home oxygen, Denies sleep apnea, Denies snoring, Denies wheezing Gastrointestinal: Reports loss of appetite, Denies abdominal pain, Denies bloating, Denies BRBPR, Denies heartburn, Denies melena, Denies nausea, Denies vomiting Genitourinary: Denies dysuria, Denies nocturia Menstruation: Reports postmenopausal Musculoskeletal: Denies myalgias Musculoskeletal: absent: ankle pain, ankle stiffness, ankle swelling, elbow pain, elbow stiffness, elbow swelling, foot pain, foot stiffness, foot swelling, hand pain, hand stiffness, hand swelling, hip pain, hip stiffness, hip swelling, knee pain, knee stiffness, knee swelling, shoulder pain, shoulder stiffness, shoulder swelling, wrist pain, wrist stiffness, wrist swelling Integumentary: Denies pruritus, Denies rash Neurological: Reports confusion, Reports gait dysfunction, Reports weakness Psychiatric: Reports anxiety, Reports depression, Denies sadness/tearfulness, Denies sleep disturbances, Denies suicidal ideation Endocrine: Reports fatigue Past Medical History Past Medical History: Coronary Artery Disease (CAD), Chest Pain / Angina, Diabetes Mellitus, Hyperlipidemia, Hypertension, Myocardial Infarction (PA), Syncope Additional Past Medical History / Comment(s): DM type II, vertigo/weakness past 5 years and pt states she has had tests but no one knows why, weakness, gait disturbance, falls, bilateral cataracts, dehydration Last Myocardial Infarction Date:: 1995 History of Any Multi-Drug Resistant Organisms: None Reported Past Surgical History: Adenoidectomy, Coronary Bypass/CABG, Heart Catheterization, Orthopedic Surgery, Tonsillectomy Additional Past Surgical History / Comment(s): 3 vessel CABG 1995 in [place], R carotid endartectomy 2016, ORIF L ankle d/t fracture. Past Anesthesia/Blood Transfusion Reactions: No Reported Reaction Past Psychological History: No Psychological Hx Reported Smoking Status: Former smoker Past Alcohol Use History: None Reported Past Drug Use History: None Reported - Past Family History Mother Family Medical History: No Reported History Additional Family Medical History / Comment(s): Mother at age 82 from old age. Father Family Medical History: No Reported History Additional Family Medical History / Comment(s): Father from old age and patient does not recall his age or any medical problems. Son(s) Family Medical History: Cancer Additional Family Medical History / Comment(s): Patient has one son with history of throat cancer in remission. Patient has one daughter with no major medical problems. Patient does not have any brothers or sisters. Medications and Allergies Home Medications Medication Instructions Recorded Confirmed Type Insulin Detemir [Levemir Flextouch] 14 units SQ HS 03/02/20 05/23/20 History Ipratropium-Albuterol Nebulize 3 ml INHALATION RT-QID PRN 04/08/20 05/23/20 History [Duoneb 0.5 mg-3 mg/3 ml Soln] Linagliptin [Tradjenta] 5 mg PO DAILY 04/08/20 05/23/20 History Lisinopril [Prinivil] 5 mg PO HS 04/08/20 05/23/20 History Metoprolol Tartrate [Lopressor] 50 mg PO BID 04/08/20 05/23/20 History Pantoprazole [Protonix] 40 mg PO HS 04/08/20 05/23/20 History Rivaroxaban [Xarelto] 15 mg PO HS 04/08/20 05/23/20 History Simvastatin [Zocor] 20 mg PO HS 04/08/20 05/23/20 History polyethylene glycoL 3350 [Miralax] 17 gm PO DAILY 04/08/20 05/23/20 History Acetaminophen Tab [Tylenol] 650 mg PO Q6HR PRN tab 04/13/20 05/23/20 Rx Hydrocodone/Acetaminophen [Leon 1 tab PO TID PRN #9 tab 04/13/20 05/23/20 Rx 5-325] ALPRAZolam [Xanax] 0.5 mg PO BID@1000,1700 05/23/20 05/23/20 History Cefuroxime [Ceftin] 250 mg PO BID@0800,2000 05/23/20 05/23/20 History Diclofenac 0.1% Ophth Soln 1 drop LEFT EYE QID 05/23/20 05/23/20 History [Voltaren 0.1% Ophth Soln] Ferrous Sulfate [Feosol] 325 mg PO BID 05/23/20 05/23/20 History Spironolactone [Aldactone] 12.5 mg PO DAILY PRN 05/23/20 05/23/20 History Vit C/E/Zn/Coppr/Lutein/Zeaxan 1 cap PO BID@1000,1700 05/23/20 05/23/20 History [Preservision Areds 2 Softgel] Allergies Allergy/AdvReac Type Severity Reaction Status Date / Time zolpidem [From Ambien] AdvReac Hallucinati Verified 05/23/20 14:24 ons Physical Exam Vitals: Vital Signs Temp Pulse Resp BP Pulse Ox 05/23/20 17:10 56 L 20 161/52 92 L 05/23/20 16:40 56 L 152/48 91 L 05/23/20 16:30 57 L 152/48 94 L 05/23/20 16:10 56 L 152/48 95 05/23/20 16:00 56 L 94 L 05/23/20 15:50 56 L 148/50 91 L 05/23/20 15:40 56 L 158/50 98 05/23/20 15:30 58 L 163/60 05/23/20 15:20 57 L 163/56 98 05/23/20 15:10 58 L 163/57 97 05/23/20 15:00 57 L 165/56 97 05/23/20 14:34 82 19 225/67 96 05/23/20 14:15 55 L 226/104 98 05/23/20 14:07 60 18 226/104 98 05/23/20 14:00 217/66 05/23/20 13:30 53 L 05/23/20 13:15 56 L 223/70 97 05/23/20 13:03 59 L 16 223/70 97 05/23/20 13:00 57 L 96 05/23/20 12:58 60 05/23/20 12:38 98.3 F 64 18 126/80 96 Intake and Output 05/23/20 05/23/20 05/23/20 06:59 14:59 22:59 Other: Weight 65.317 kg Physical examination: HEENT: Head is atraumatic, normocephalic, pupils were equal round reactive to light and accommodations, extraocular muscle movement were intact. Oral mucous membranes are dry patient sounded to the upper and lower lip. Neck: Supple, no JVP, decreased carotid upstroke bilaterally. Chest: Decreased breath sounds at the bases, there is no chest wall tenderness no intercostal retractions there is no expiratory wheezes. Heart: First heart sound is depressed, second heart sounds normal, there is systolic murmur 2/6 located at the right second intercostal space related to the base of the neck per Abdomen: Soft, nontender, nondistended, positive bowel sounds. Extremities: No pedal edema bilaterally, dorsalis pedis palpable bilaterally. No calf tenderness. Neurologic examination: Patient is awake and alert and oriented 3. No focal neuro deficits. Cranial nerves III-12 appear grossly intact. Results CBC & Chem 7: 05/23/20 13:02 05/23/20 13:02 Labs: Abnormal Lab Results - Last 24 Hours (Table) 05/23/20 05/23/20 05/23/20 Range/Units 13:02 13:02 13:02 MCH 24.8 L (25.0-35.0) pg MCHC 29.6 L (31.0-37.0) g/dL RDW 23.1 H (11.5-15.5) % PT 12.4 H (9.0-12.0) sec INR 1.2 H (<1.2) Creatinine 1.11 H (0.52-1.04) mg/dL Thrombosis Risk Factor Assmnt - DVT/VTE Prophylaxis DVT/VTE Prophylaxis: Pharmacologic Prophylaxis ordered, Mechanical Prophylaxis ordered Assessment and Plan Assessment: Assessment and plan: 1. 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 Patient was described diclofenac eyedrops 0.1% apply 4 times every day, patient also was seen ophthalmology, he was recommended to monitor the patient very closely, along with a recent diagnosis of adult macular degeneration for which she was started on PreserVision. 2. TIA with confusion seems to be back to baseline. Neuro check every 2 hours with next 24 hours, monitor the patient very closely, ultrasound of the carotids will be done last one was in 2016, echocardiogram was done this year results are in the system ejection fraction 35% mild aortic stenosis and mild mitral regurgitation. 3. Paroxysmal atrial fibrillation. We will continue patient on metoprolol 50 mg orally twice every day as well as Xarelto 15 mg orally once every day. 4. History of coronary artery disease status post three-vessel CABG in 1995. Continue patient on metoprolol 50 mg orally twice every day as well as Lipitor 10 mg orally once every day. 5. Carotid artery disease status post carotid endarterectomy. Stable. We will check ultrasound the carotids. 6. Diabetes mellitus type 2, insulin requiring. Continue Levemir 14 units at bedtime and NovoLog scale before meals and at bedtime, Tradjenta 5 mg daily. Continue Accu-Chek before each meal and at bedtime along with a sliding scale insulin. 7. 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 Continue metoprolol 50 mg orally twice every day, lisinopril 10 mg orally once every day at amlodipine 5 mg orally once every day.. 8. Hyperlipidemia. Continue Lipitor 10 mg daily. 9. Chronic vertigo. Stable. 10. Gastroesophageal reflux disease. Continue Protonix 40 mg daily. 11. DVT prophylaxis. Currently on Xarelto. 12. GI prophylaxis. Continue patient on Protonix. 13. Admitted to inpatient. Estimate a length of stay 2 midnights per 14. Patient is no code.
[2020-05-23 20:11] LABS: Glucose,Whole Blood 103 mg/dL (75-99)
[2020-05-23] MEDS ORDERED: ATORVASTATIN 10 MG TAB PO SCH (21:00)
[2020-05-23] MEDS: INSULIN ASPART (NovoLOG) 100 UNIT/ML VIAL SQ SCH (21:14)
[2020-05-23] MEDS: FERROUS SULFATE 325 MG TAB PO SCH (21:19)
[2020-05-23] MEDS: CEFDINIR 300 MG CAP PO SCH (21:19)
[2020-05-23] MEDS: INSULIN DETEMIR (LEVEMIR) 100 UNIT/ML SYR SQ SCH (21:19)
[2020-05-23] MEDS: RIVAROXABAN 15 MG TAB PO SCH (21:19)
[2020-05-23] MEDS: PANTOPRAZOLE 40 MG TABLET PO SCH (21:19)
[2020-05-23] MEDS: METOPROLOL TARTRATE 50 MG TAB PO SCH (21:19)
[2020-05-23] MEDS: lisinopriL 5 MG TAB PO SCH (21:19)
[2020-05-23] MEDS: DICLOFENAC 0.1% OPHTH SOLN 2.5 ML BTL LEFT EYE SCH (21:20)
[2020-05-24 06:32] LABS: Glucose,Whole Blood 87 mg/dL (75-99)
[2020-05-24] MEDS: INSULIN ASPART (NovoLOG) 100 UNIT/ML VIAL SQ SCH ×4 (06:33→21:44)
[2020-05-24 06:58] LABS: Anisocytosis Moderate; Basophils # (A) 0.1 k/uL (0-0.2); Basophils % (A) 1 %; Eosinophils # (A) 0.4 k/uL (0-0.7); Eosinophils % (A) 5 %; HCT 35.6 % (34.0-46.0); HGB 10.5 gm/dL (11.4-16.0); Hypochromasia Marked; Lymphocytes # (A) 1.7 k/uL (1.0-4.8); Lymphocytes % (A) 21 %; MCH 25.3 pg (25.0-35.0); MCHC 29.5 g/dL (31.0-37.0); MCV 85.9 fL (80.0-100.0); Mean Platelet Volume 8.6; Microcytosis Slight; Monocytes # (A) 0.8 k/uL (0-1.0); Monocytes % (A) 10 %; Neutrophils # (A) 4.8 k/uL (1.3-7.7); Neutrophils % (A) 61 %; Platelet Count 256 k/uL (150-450); RBC 4.14 m/uL (3.80-5.40); RDW 22.7 % (11.5-15.5); WBC 7.9 k/uL (3.8-10.6)
[2020-05-24 07:08] LABS: Albumin 2.9 g/dL (3.5-5.0); Calcium 8.7 mg/dL (8.4-10.2); Potassium 3.9 mmol/L (3.5-5.1); Total Bilirubin 0.6 mg/dL (0.2-1.3); Total Protein 5.3 g/dL (6.3-8.2)
--- NOTE | 2020-05-24 08:08 | US ---
EXAMINATION TYPE: US carotid duplex BILAT DATE OF EXAM: 05/24/2020 COMPARISON: US CLINICAL HISTORY: TIA. TIA, abnormal vision EXAM MEASUREMENTS: RIGHT: Peak Systolic Velocity (PSV) cm/sec ----- Right CCA: 91.1 ----- Right ICA: 141.7 ----- Right ECA: 98.4 ICA/CCA ratio: 1.6 RIGHT: End Diastole cm/sec ----- Right CCA: 7.6 ----- Right ICA: 7.7 ----- Right ECA: 0.0 LEFT: Peak Systolic Velocity (PSV) cm/sec ----- Left CCA: 153.1 ----- Left ICA: 509.3 ----- Left ECA: 197.6 ICA/CCA ratio: 3.3 LEFT: End Diastole cm/sec ----- Left CCA: 13.7 ----- Left ICA: 70.1 ----- Left ECA: 0.0 VERTEBRALS (direction of flow): Right Vertebral: Retrograde Left Vertebral: Antegrade Rhythm: Normal Heterogeneous plaque bilaterally, more on left with highly significant stenosis on left and abnorma lly high velocities, worsened when compared to previous in 2016/ Left ECA very difficult to visualize due to extensive plaque/ Right vertebral retrograde flow IMPRESSION: 1. Greater than 70% stenosis left ICA. Criteria for Assigning % of Stenosis / Diameter reduction (Estimation based on the indirect measurements of the internal carotid artery velocities (ICA PSV). 1. Normal (no stenosis)=ICA PSV < 125 cm/s: ratio < 2.0: ICA EDV<40 cm/s. 2. Less than 50% stenosis=ICA PSV < 125 cm/s: ratio < 2.0: ICA EDV<40 cm/s. 3. 50 to 69% stenosis=ICA PSV of 125 to 230 cm/s: ration 2.0 ? 4.0: ICA EDV 40-100 cm/s. 4. Greater than 70% stenosis to near occlusion= ICA PSV > 230 cm/s: ratio > 4.0: ICA EDV > 100 cm/s. 5. Near occlusion= ICA PSV velocities may be low or undetectable: variable ratio and ICA EDV. 6. Total occlusion=unable to detect flow.
--- NOTE | 2020-05-24 08:48 | P.PN ---
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, patient was recently hospitalized at [facility] in February 2020 where she was admitted for increased dizziness and lightheadedness and underwent upper and lower endoscopy that showed initially Schatzki's ring with diverticulosis and 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 that was treated with argon treatment, patient also during the last hospital admission went into atrial fibrillation with rapid ventricular response she ended up with acute systolic heart failure underwent echocardiogram that showed ejection fraction of 30-35%, with a mild aortic stenosis and aortic sclerosis, no mitral regurgitation but there was mild tricuspid regurgitation, patient was treated with the heparin drip and subsequently she was switched back to Xarelto 15 mg orally once every day, patient became quite short of breath and she was requiring BiPAP treatment however she elected to go into hospice care she went back to [facility] under hospice care while she was at [facility] she elected to sign herself off of hospice care and she want medical care at that time subsequently her medications were restarted and the patient was treated medically she was just discharged from [facility] 24 hours ago and she went to her daughter's house however she became quite weak and extreme short of breath and she was admitted to the hospital for elective severe bilateral pleural effusion with acute systolic heart failure and was treated with IV diuretics and was seen in consultation by cardiology as well as pulmonary medicine, and she was discharged [facility] for physical therapy rehabilitation she is closed left [facility] and was seen in my office a few days ago and she was doing fine today she developed to have a significant in the left eye associated with increased confusion and the patient could not find the right words she was complaining of increased headache, the pain got out of hand so her daughter contacted her eye doctor who told her to take her to the emergency department for evaluation, patient had a computed tomography scan of the brain did not show any evidence of acute infarct or bleed, it did show generalized atrophy with small vessel disease, she had an x-ray of the pelvis and head and was negative for acute fracture patient's daughter stated that she fell in the bathroom and she had to help her up without any injury, patient was recently diagnosed with macular degeneration as well as she was started on PreserVision as well. 05/24: Patient's mental status seems to be back to baseline. She is able to verbalize that she is having trouble with some recall on occasion and she can recognize the error. Blood pressure is much improved this morning 130/58, heart rate 52, pulse ox 97% on 2 L. Patient is been afebrile. Carotid ultrasound revealed left internal carotid artery stenosis of 70%. Past surgery consult will be added. Patient has had a right-sided endarterectomy in 2016. Repeat CBC is unremarkable. Electrolytes within normal limits. Creatinine 1.05. Blood sugar 87. Triglycerides 162, cholesterol 117, LDL 44, HDL 41. Discussed case with Dr. Salas, neurologist, he plans to order MRI and EEG. Nursing has been updated. Objective - Vital Signs Vital signs: Vital Signs Temp 98.2 F 05/24/20 03:21 Pulse 52 L 05/24/20 03:21 Resp 18 05/24/20 03:21 BP 130/58 05/24/20 03:21 Pulse Ox 97 05/24/20 03:21 Intake & Output 05/23/20 05/24/20 05/24/20 18:59 06:59 18:59 Intake Total 240 240 Balance 240 240 Weight 65.317 kg 62.7 kg Intake: Oral 240 240 Other: # Voids 0 1 - Exam Review of Systems Constitutional: Reports anorexia, Reports chronic headaches, Reports chronic pain, Reports fatigue, Reports weakness, Reports weight loss Eyes: left pain, bilateral blurred vision Ears, nose, mouth and throat: Denies dysphagia, Denies neck lump, Denies sore throat, Denies vertigo Cardiovascular: Denies chest pain, Denies claudication, Denies decreased exercise tolerance, Denies lightheadedness, Denies rapid heart beat, Denies shortness of breath, Denies syncope Respiratory: Denies congestion, Denies cough, Denies cough with sputum, Denies home oxygen, Denies sleep apnea, Denies snoring, Denies wheezing Gastrointestinal: Reports loss of appetite, Denies abdominal pain, Denies bloating, Denies BRBPR, Denies heartburn, Denies melena, Denies nausea, Denies vomiting Genitourinary: Denies dysuria, Denies nocturia Menstruation: Reports postmenopausal Musculoskeletal: Denies myalgias Musculoskeletal: absent: ankle pain, ankle stiffness, ankle swelling, elbow pain, elbow stiffness, elbow swelling, foot pain, foot stiffness, foot swelling, hand pain, hand stiffness, hand swelling, hip pain, hip stiffness, hip swelling, knee pain, knee stiffness, knee swelling, shoulder pain, shoulder stiffness, shoulder swelling, wrist pain, wrist stiffness, wrist swelling Integumentary: Denies pruritus, Denies rash Neurological: Reports confusion, Reports gait dysfunction, Reports weakness Psychiatric: Reports anxiety, Reports depression, Denies sadness/tearfulness, Denies sleep disturbances, Denies suicidal ideation Endocrine: Reports fatigue Physical examination: GEN: This is an 89-year-old female. Patient is resting in bed and appears to be comfortable and in no acute distress. HEENT: Head is atraumatic, normocephalic, pupils were equal round reactive to light and accommodations, extraocular muscle movement were intact. Oral mucous membranes are dry patient sounded to the upper and lower lip. Neck: Supple, no JVP, decreased carotid upstroke bilaterally. Chest: Decreased breath sounds at the bases, there is no chest wall tenderness no intercostal retractions there is no expiratory wheezes. Heart: First heart sound is depressed, second heart sounds normal, there is systolic murmur 2/6 located at the right second intercostal space related to the base of the neck per Abdomen: Soft, nontender, nondistended, positive bowel sounds. Extremities: No pedal edema bilaterally, dorsalis pedis palpable bilaterally. No calf tenderness. Neurologic examination: Patient is awake and alert and oriented 3. No focal neuro deficits. Cranial nerves III-12 appear grossly intact. - Labs CBC & Chem 7: 05/24/20 05:58 05/24/20 05:58 Labs: Abnormal Lab Results - Last 24 Hours (Table) 05/23/20 05/23/20 05/23/20 Range/Units 13:02 13:02 13:02 Hgb (11.4-16.0) gm/dL MCH 24.8 L (25.0-35.0) pg MCHC 29.6 L (31.0-37.0) g/dL RDW 23.1 H (11.5-15.5) % PT 12.4 H (9.0-12.0) sec INR 1.2 H (<1.2) Creatinine 1.11 H (0.52-1.04) mg/dL POC Glucose (mg/dL) (75-99) mg/dL Alkaline Phosphatase (38-126) U/L Total Protein (6.3-8.2) g/dL Albumin (3.5-5.0) g/dL Triglycerides (<150) mg/dL 05/23/20 05/24/20 05/24/20 Range/Units 20:10 05:58 05:58 Hgb 10.5 L (11.4-16.0) gm/dL MCH (25.0-35.0) pg MCHC 29.5 L (31.0-37.0) g/dL RDW 22.7 H (11.5-15.5) % PT (9.0-12.0) sec INR (<1.2) Creatinine 1.05 H (0.52-1.04) mg/dL POC Glucose (mg/dL) 103 H (75-99) mg/dL Alkaline Phosphatase 37 L (38-126) U/L Total Protein 5.3 L (6.3-8.2) g/dL Albumin 2.9 L (3.5-5.0) g/dL Triglycerides 162 H (<150) mg/dL Assessment and Plan Plan: Assessment and Plan 1. 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 Patient was prescribed diclofenac eyedrops 0.1% apply 4 times every day, patient also was se en ophthalmology, he was recommended to monitor the patient very closely, along with a recent diagnosis of adult macular degeneration for which she was started on PreserVision. 2. TIA with confusion seems to be back to baseline. Neuro check every 2 hours with next 24 hours, monitor the patient very closely, ultrasound of the carotids will be done last one was in 2016, echocardiogram was done this year results are in the system ejection fraction 35% mild aortic stenosis and mild mitral regurgi tation. 3. Paroxysmal atrial fibrillation. Continue patient on metoprolol 50 mg orally twice every day as well as Xarelto 15 mg orally once every day. 4. History of coronary artery disease status post three-vessel CABG in 1995. Continue patient on metoprolol 50 mg orally twice every day as well as Lipitor 10 mg orally once every day. 5. Carotid artery disease status post carotid endarterectomy. Stable. We will check ultrasound the carotids. 6. Carotid artery stenosis 70%. Consult vascular surgery. 7. Diabetes mellitus type 2, insulin requiring. Continue Levemir 14 units at bedtime and NovoLog scale before meals and at bedtime, Tradjenta 5 mg daily. Continue Accu-Chek before each meal and at bedtime along with a sliding scale insulin. 8. 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 Continue metoprolol 50 mg orally twice every day, lisinopril 10 mg orally once every day at amlodipine 5 mg orally once every day.. 9. Hyperlipidemia. Continue Lipitor 10 mg daily. 10. Chronic vertigo. Stable. 11. Gastroesophageal reflux disease. Continue Protonix 40 mg daily. 12. DVT prophylaxis. Currently on Xarelto. 13. GI prophylaxis. Continue patient on Protonix. 14. Patient is no code. Discharge plan: To be determined Impression and plan of care have been directed as dictated by the signing physician. Nataliia Alejo nurse practitioner acting as scribe for signing physician.
[2020-05-24] MEDS: METOPROLOL TARTRATE 50 MG TAB PO SCH ×2 (09:31→21:44)
[2020-05-24] MEDS: ALPRAZolam 0.5 MG TAB PO SCH ×2 (09:31→17:21)
[2020-05-24] MEDS: FERROUS SULFATE 325 MG TAB PO SCH ×2 (09:31→21:43)
[2020-05-24] MEDS: LINAGLIPTIN 5 MG TABLET PO SCH (09:31)
[2020-05-24] MEDS: CEFDINIR 300 MG CAP PO SCH ×2 (09:31→21:43)
[2020-05-24] MEDS: hydrALAZINE HCL 20 MG/ML 1 ML VIAL IVP PRN ×2 (09:34→17:37)
[2020-05-24] MEDS: polyethylene glycoL 3350 17 GM POWD.PACK PO SCH (09:35)
[2020-05-24] MEDS: VIT A,C & E-LUTEIN-MINERALS 1 EACH TAB PO SCH ×2 (09:44→17:21)
[2020-05-24] MEDS: DICLOFENAC 0.1% OPHTH SOLN 2.5 ML BTL LEFT EYE SCH ×4 (09:44→21:53)
--- NOTE | 2020-05-24 10:05 | P.CNNES ---
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 Per the patient that she stated that she's been having left eye pain which she localizes it to the left upper quadrant area that has been going on for last 4-6 weeks it's been constant but in last 1 week it's been worse as she couldn't describe the pain for me which is painful in her words. She denied any pain with movement of the eyes appeared she denies any blurry vision. She said that yesterday the pain got really severe when she woke up and she had very minimal headache which she localized to the left parietal area she stated maybe it was a 2-3 out of 10 and she denied any photophobia or photophobia associate with this. Denies nausea vomiting. The headache was brief in duration per patient. Denied any weakness associated with this. She denied any fever or any chills, trauma to the eye. Denied any redness to the eye or any discharge. Per the ED note she is also been having confusion on the day of presentation that's waxing and waning. Currently the left eye pain is 1/10. She denies of any current headaches. I spoke with the patient daughter (Claudia) via phone and she stated that the patient saw an advertising representative about 2 weeks ago (Dr. Anastasiia brennan at [facility]) regarding her left eye pain. She was on diclofenac topical. She did state that the patient had the episode of word finding difficulties as well as getting the words out wrong yesterday from 10:30 lasting for a couple hours as well as she had an episode similar to that the about a month to 2 months ago lasting for 20 minutes. She's also been having episodes of confusion on and off for past couple month. She said that Dr. Fagan did the endarterectomy in 2015 the. Per the patient's daughter the daughter stated that the patient could not get the MRI as an inpatient because she is claustrophobic even if she got some sedation. She stated that the patient needs to get an open MRI. Patient follows up with her PCP Dr. Marilyn Nash and presented per his note and he mentions that the patient followed up with him a few days ago and was doing well. Then on 05/23/2020 she developed significant left eye pain associate with increasing confusion and having word finding difficulty as well as having headache. She contacted her primary care and the she was told to come to the emergency department. Initial vitals on presentation was a blood pressure of 126/80, heart rate of 64, respiratory of 18, temperature of 98.3 Fahrenheit oral, oxygen sat of 96 at room air. Then patient's blood pressure was running in the 200s systolic diastolic was running in the 60s to 70s. Last blood pressure reading is 130/58. Workup in the hospital consisted of CT of the head which was done in the ED and was reported as no acute intracranial hemorrhage or midline shift. There is moderate diffuse cerebral atrophy and chronic small vessel ischemic change redemonstrated. There is no significant change from prior. I personally reviewed the CT of the head and I didn't see any acute ischemia or any intraparenchymal hemorrhage. EKG was done and reported as showed sinus bradycardia. Possible anterior infarct age undetermined. Ventricle rate of the 58. Patient Y blood cell on presentation is 8.5. She was seen by the neuro hospitalist Dr. Morrissey on 09/12/2018 and a chief complaint was retro-orbital headache which was severe. Was recommended the for ophthalmology consultation. Patient did have CTA of the head on 09/11/2018 and that was reported as negative. She also had an EEG on 06/13/2016 for a syncopal episode. The EEG was reported as moderate abnormal in diffuse fashion due to slowing in the EEG background. There is no focal slowing epileptiform abnormality or seizure detected. Patient had a previous carotid duplex on 06/14/2016 and was reported as moderate to severe plaque noted left bifurcation. Increased velocity left ICA and bilateral ANNA greater on the left. Difficult to visualize right vertebral artery. Possible retrograde flow. Review of Systems Review of system: The 12 point system was reviewed and apparent positive and negative per HPI. Past Medical History Past Medical History: Coronary Artery Disease (CAD), Chest Pain / Angina, Diabetes Mellitus, Hyperlipidemia, Hypertension, Myocardial Infarction ([place]), Syncope Additional Past Medical History / Comment(s): DM type II, vertigo/weakness past 5 years and pt states she has had tests but no one knows why, weakness, gait disturbance, falls, bilateral cataracts, dehydration Last Myocardial Infarction Date:: 1995 History of Any Multi-Drug Resistant Organisms: None Reported Past Surgical History: Adenoidectomy, Coronary Bypass/CABG, Heart Catheterization, Orthopedic Surgery, Tonsillectomy Additional Past Surgical History / Comment(s): 3 vessel CABG 1995 in [place], carotid endartectomy 2015, ORIF L ankle d/t fracture. Past Anesthesia/Blood Transfusion Reactions: No Reported Reaction Past Psychological History: No Psychological Hx Reported Smoking Status: Former smoker Past Alcohol Use History: None Reported Past Drug Use History: None Reported - Past Family History Mother Family Medical History: No Reported History Additional Family Medical History / Comment(s): Mother at age 82 from old age. Father Family Medical History: No Reported History Additional Family Medical History / Comment(s): Father from old age and patient does not recall his age or any medical problems. Son(s) Family Medical History: Cancer Additional Family Medical History / Comment(s): Patient has one son with history of throat cancer in remission. Patient has one daughter with no major medical problems. Patient does not have any brothers or sisters. Medications and Allergies Home Medications Medication Instructions Recorded Confirmed Type Insulin Detemir [Levemir Flextouch] 14 units SQ HS 03/02/20 05/23/20 History Ipratropium-Albuterol Nebulize 3 ml INHALATION RT-QID PRN 04/08/20 05/23/20 History [Duoneb 0.5 mg-3 mg/3 ml Soln] Linagliptin [Tradjenta] 5 mg PO DAILY 04/08/20 05/23/20 History Lisinopril [Prinivil] 5 mg PO HS 04/08/20 05/23/20 History Metoprolol Tartrate [Lopressor] 50 mg PO BID 04/08/20 05/23/20 History Pantoprazole [Protonix] 40 mg PO HS 04/08/20 05/23/20 History Rivaroxaban [Xarelto] 15 mg PO HS 04/08/20 05/23/20 History Simvastatin [Zocor] 20 mg PO HS 04/08/20 05/23/20 History polyethylene glycoL 3350 [Miralax] 17 gm PO DAILY 04/08/20 05/23/20 History Acetaminophen Tab [Tylenol] 650 mg PO Q6HR PRN tab 04/13/20 05/23/20 Rx Hydrocodone/Acetaminophen [[place] 1 tab PO TID PRN #9 tab 04/13/20 05/23/20 Rx 5-325] ALPRAZolam [Xanax] 0.5 mg PO BID@1000,1700 05/23/20 05/23/20 History Cefuroxime [Ceftin] 250 mg PO BID@0800,199905/23/20 05/23/20 History Diclofenac 0.1% Ophth Soln 1 drop LEFT EYE QID 05/23/20 05/23/20 History [Voltaren 0.1% Ophth Soln] Ferrous Sulfate [Feosol] 325 mg PO BID 05/23/20 05/23/20 History Spironolactone [Aldactone] 12.5 mg PO DAILY PRN 05/23/20 05/23/20 History Vit C/E/Zn/Coppr/Lutein/Zeaxan 1 cap PO BID@1000,1700 05/23/20 05/23/20 History [Preservision Areds 2 Softgel] Allergies Allergy/AdvReac Type Severity Reaction Status Date / Time zolpidem [From Ambien] AdvReac Hallucinati Verified 05/23/20 14:24 ons Physical Examination - Vital Signs Vital Signs: Vital Signs Temp Pulse Pulse Resp BP BP Pulse Ox 05/24/20 03:21 98.2 F 52 L 18 130/58 97 05/24/20 00:00 98 F 60 18 131/63 97 05/23/20 20:00 98.6 F 65 20 212/85 92 L 05/23/20 17:10 56 L 20 161/52 92 L 05/23/20 16:40 56 L 152/48 91 L 05/23/20 16:30 57 L 152/48 94 L 05/23/20 16:10 56 L 152/48 95 05/23/20 16:00 56 L 94 L 05/23/20 15:50 56 L 148/50 91 L 05/23/20 15:40 56 L 158/50 98 05/23/20 15:30 58 L 163/60 05/23/20 15:20 57 L 163/56 98 05/23/20 15:10 58 L 163/57 97 05/23/20 15:00 57 L 165/56 97 05/23/20 14:34 82 19 225/67 96 05/23/20 14:15 55 L 226/104 98 05/23/20 14:07 60 18 226/104 98 05/23/20 14:00 217/66 05/23/20 13:30 53 L 05/23/20 13:15 56 L 223/70 97 05/23/20 13:03 59 L 16 223/70 97 05/23/20 13:00 57 L 96 05/23/20 12:58 60 05/23/20 12:38 98.3 F 64 18 126/80 96 Intake and Output 05/23/20 05/24/20 05/24/20 22:59 06:59 14:59 Intake Total 240 Balance 240 Intake: Oral 240 Other: # Voids 0 1 Weight 65.317 kg 62.7 kg GENERAL: The patient is lying in bed and is not in acute distress. CHEST: The heart rate is regular rate rhythm. No murmurs to auscultation. No carotid bruit bilaterally. LUNG: Clear to auscultation bilaterally no wheezing noted throughout. Not labored breathing. ABDOMEN/GI: Bowel sounds present in all 4 quadrants. No tenderness to palpation throughout. NEUROLOGICAL: Higher mental function: The patient is awake, alert, oriented to self, place and time. Patient is following commands. No aphasia and no neglect. Cranial nerves: The pupils are round, equal 2mm bilaterally and reactive to light and accommodation. Visual brar are full to confrontation throughout. Visual acuity is 20/20 OD and 20/25 OS without correction. Extraocular movement is intact no nystagmus is noted. Facial sensation is normal to touch throughout. The facial strength is normal throughout. Hearing is normal bilaterally to hand rub. Tongue is midline and moved [id number] without any difficulty. No dysarthria is noted. Shoulder shrug is normal bilaterally. Motor: Gait is defered. The strength: The patient did not allow me to put pressure on her right lower extremity since she said after CABG (had vein taking out) she is sensitive to touch but was moving above gravity without drift. Otherwise is 5 over 5 throughout. Normal tone and bulk. Cerebellum: Normal finger to nose heel to chin bilaterally. Sensation: Sensation is normal to touch throughout except right lower extremity unable to assess since patient asked not to be examined because of chronic pain she has. Reflexes (right/left): 2+ throughout except 1+ at left ankle. She did not want to be assessed of right lower extremity. Plantars are downgoing on left but not assessed on the right. Results Lipid profile was also performed and the triglyceride was 162, cholesterol is 117, LDL was 44, HDL is 41. Coagulation study the PT is 12.4, INR 1.2, PTT of 29.3. AST of 27, ALTs 13. TSH was 1.94 on 04/08/2020. Last hemoglobin A1c is 6.2 on 03/29/2020. - Laboratory Findings CBC and BMP: 05/24/20 05:58 05/24/20 05:58 Abnormal Lab Findings: Abnormal Labs 05/23/20 05/23/20 05/23/20 13:02 13:02 13:02 Hgb MCH 24.8 L MCHC 29.6 L RDW 23.1 H PT 12.4 H INR 1.2 H Creatinine 1.11 H POC Glucose (mg/dL) Alkaline Phosphatase Total Protein Albumin Triglycerides 05/23/20 05/24/20 05/24/20 20:10 05:58 05:58 Hgb 10.5 L MCH MCHC 29.5 L RDW 22.7 H PT INR Creatinine 1.05 H POC Glucose (mg/dL) 103 H Alkaline Phosphatase 37 L Total Protein 5.3 L Albumin 2.9 L Triglycerides 162 H Assessment and Plan Assessment: This is an 89-year-old right-handed female with medical history of Right carotid artery occlusion status post carotid endarterectomy in 2015, coronary artery disease status post CABG in 1995, who presented to the emergency department on the 05/23/2020 for difficulty finding her words, left eye pain and headache. The patient has been having left upper quadrant pain for the past 4-6 weeks and has been worse in the past one week especially yesterday in morn ing. She had minor headache over the left parietal area that resolved. She denies of blurring vision, eyes pain with movement or redness or trauma to eye. Patient followed up with an advertising representative about 2 weeks ago regarding left eye pain. Currently her left eye pain is 1/10. She also has been having confusion and word finding difficulty. Difficulty getting her words out possibly due to TIA Possibly from Left ICA stenosis Left eye pain Uncontrolled hypertension Acute kidney insufficiency History of right carotid endarterectomy in 2016 Atrial fibrillation Hyperlipidemia Diabetes type 2 History of coronary artery disease status post CABG Plan: Carotid duplex: Greater than 70% stenosis in the left ICA. The patient had the carotid duplex in 2016 and it seemed left ICA stenosis is worse. I will get a CTA of the head and neck to better visualize the degree of stenosis. Dr. Fagan is consulted for the ICA stenosis. Currently patient is on Lipitor 10 mg. I'll increase the Lipitor dose to 80 mg. For her atrial fibrillation she is on Xarelto 50 mg daily. Regarding her carotid stenosis I recommend that patient be on dual antiplatelet but she is already on Xarelto so possibly consider adding aspirin on top of the Xarelto since the degree of bleeding is higher with dual antiplatelet in addition to the Xarelto. I notified the daughter that I want to get MRI of the brain as well as the orbits but the daughter stated that the patient cannot get MRI as an inpatient since she is claustrophobic even if she got some sedation and that she wants the patient to get the open MRIs so patient needs to get an MRI workup as an outpatient. Regarding her left eye pain: Per the primary care physician the patient follows up with Dr. Laurent (Ophthamologist) and the patient needs to follow-up with him as an outpatient regarding her eye pain. I highly doubt that this is a left temporal arteritis. I ordered a stat ESR: 15 (Therefore unlikely temporal arteritis). I also order HSV PCR. Regarding her periods of confusion all order a routine EEG TSH was 1.94 on 04/08/2020. Last hemoglobin A1c is 6.2 on 03/29/2020. Order vitamin B12, folate. Regarding the patient's blood pressure, diabetes will defer the management to the primary team. Thank you for the consult. Casey Salas M.D. Neuro-hospitalist Time with Patient: Greater than 30
[2020-05-24 11:45] LABS: Glucose,Whole Blood 94 mg/dL (75-99)
--- NOTE | 2020-05-24 13:38 | CT ---
EXAMINATION TYPE: CT angio head neck DATE OF EXAM: 05/24/2020 HISTORY: Left eye pain. COMPARISON: CT brain 05/23/2020 and carotid Doppler duplex 05/24/2020 CT DLP: 233.6 mGycm. Automated Exposure Control for Dose Reduction was Utilized. TECHNIQUE: CTA scan of the neck is performed with IV Contrast, patient injected with 65 mL of Isovue 370, axial images are obtained, coronal and sagittal reformatted images are reviewed. Three-D recons tructed images are created on an independent workstation and reviewed. FINDINGS: Carotid/Vascular Structures: Transverse aorta, innominate, left and right common carotid, left and ri ght subclavian arteries, internal and external carotid arteries are patent, there are atheromatous ch anges present with distal common carotid artery on the left showing atheromatous narrowing extending into the proximal internal carotid artery corresponding to Doppler duplex findings. The right common carotid artery, internal and external carotid arteries show no stenosis by NASCET criteria. The left vertebral artery is dominant. Anterior posterior circulation is present and patent within th e brain. No evident aneurysm, dissection, or embolus. Extensive cerebral vascular calcification prese nt at the carotid siphons. Other: Emphysematous changes present at the lung apices. Degenerative disc changes are present in the visualized spine, there is associated facet arthropathy. IMPRESSION: Hemodynamic significant stenosis of the proximal internal carotid artery corresponding to Doppler duplex findings likely greater than 70% diameter reduction by NASCET criteria.
[2020-05-24 14:20] LABS: Hemoglobin A1C 5.4 % (4.0-6.0)
--- NOTE | 2020-05-24 15:20 | EEG ---
ELECTROENCEPHALOGRAM REPORT DATE OF SERVICE: 05/24/2020. CLINICAL HISTORY: This is an 89-year-old female with a history of right carotid occlusion, status post endarterectomy and atrial fibrillation who presented to the emergency department on 05/23/2020 for left eye pain as well as confusion. This video EEG was obtained to evaluate for seizure and epileptiform activity. RELEVANT MEDICATION: Not on any centrally active medication. EEG TYPE: A routine 21-channel EEG was performed with video using the 10/20 electrode placement system. DESCRIPTION: Wakefulness only is obtained. During wakefulness there is a posterior-dominant rhythm of low to moderate voltage, reactive, well modulated, of 7-8 hertz activity. There is no sleep II architecture seen. There is occasional 1.5 to 2 hertz moderate to high voltage generalized rhythmic delta activity with frontal predominance. Interictal and ictal: None. ACTIVATION PROCEDURE: Photic stimulation did not evoke a posterior driving response. Hyperventilation was not performed because of the patient's clinical history. EEG DIAGNOSIS: This is an abnormal routine study due to occasional generalized rhythmic delta activity with frontal predominance. CLINICAL INTERPRETATION: This is an abnormal routine awake EEG due to generalized rhythmic delta activity suggestive of mild encephalopathy of unspecified etiology. There are no focal slowing, interictal or seizure seen during the study. Clinical correlation is recommended. MMODL / IJN: [id number] / MTDD
--- NOTE | 2020-05-24 16:58 | P.GSCN ---
History of Present Illness History of present illness: 89-year-old female well known to me from the past. Patient to came with history of 4 bilateral pain in in her eyes and she was seen by the application specialist and they will diagnoses possible macular degeneration. And had a extensive stroke workup including carotid ultrasound. Which shows a 70% stenosis left internal carotid artery. Computed tomography scan shows a back chronic care cerebral atrophy no acute intracranial hemorrhage or midline shift noted noted past medical history he of 4 coronary artery disease, history of 4 diabetes mellitus, hypertension, [place], atrial fibrillation, on examination patient was seen in her room patient lying comfortably in bed. Neck is supple Chest is clear first and second sound present Abdomen is his nontender Vascular brachial radial femoral pulses are present central nervous system oriented time and place normal motor function patient has been complaining of pain in both eyes right and left CTA of the carotid and curetted ultrasound jethro ws left side 70% stenosis stenosis Plan is I will discuss the option with the patient at this point patient has no neuro deficit and a carotid shows left side is 70% stenosis stenosis stenosis patient has a no CODE STATUS I will discuss with the Dr. Nash and and the family follow with you thank Past Medical History Past Medical History: Coronary Artery Disease (CAD), Chest Pain / Angina, Diabetes Mellitus, Hyperlipidemia, Hypertension, Myocardial Infarction ([place]), Syncope Additional Past Medical History / Comment(s): DM type II, vertigo/weakness past 5 years and pt states she has had tests but no one knows why, weakness, gait disturbance, falls, bilateral cataracts, dehydration Last Myocardial Infarction Date:: 1995 History of Any Multi-Drug Resistant Organisms: None Reported Past Surgical History: Adenoidectomy, Coronary Bypass/CABG, Heart Cathet erization, Orthopedic Surgery, Tonsillectomy Additional Past Surgical History / Comment(s): 3 vessel CABG 1995 in [place], carotid endartectomy 2016, ORIF L ankle d/t fracture. Past Anesthesia/Blood Transfusion Reactions: No Reported Reaction Past Psychological History: No Psychological Hx Reported Smoking Status: Former smoker Past Alcohol Use History: None Reported Past Drug Use History: None Reported - Past Family History Mother Family Medical History: No Reported History Additional Family Medical History / Comment(s): Mother at age 82 from old age. Father Family Medical History: No Reported History Additional Family Medical History / Comment(s): Father from old age and patient does not recall his age or any medical problems. Son(s) Family Medical History: Cancer Additional Family Medical History / Comment(s): Patient has one son with history of throat cancer in remission. Patient has one daughter with no major medical problems. Patient does not have any brothers or sisters. Medications and Allergies Home Medications Medication Instructions Recorded Confirmed Type Insulin Detemir [Levemir Flextouch] 14 units SQ HS 03/02/20 05/23/20 History Ipratropium-Albuterol Nebulize 3 ml INHALATION RT-QID PRN 04/08/20 05/23/20 History [Duoneb 0.5 mg-3 mg/3 ml Soln] Linagliptin [Tradjenta] 5 mg PO DAILY 04/08/20 05/23/20 History Lisinopril [Prinivil] 5 mg PO HS 04/08/20 05/23/20 History Metoprolol Tartrate [Lopressor] 50 mg PO BID 04/08/20 05/23/20 History Pantoprazole [Protonix] 40 mg PO HS 04/08/20 05/23/20 History Rivaroxaban [Xarelto] 15 mg PO HS 04/08/20 05/23/20 History Simvastatin [Zocor] 20 mg PO HS 04/08/20 05/23/20 History polyethylene glycoL 3350 [Miralax] 17 gm PO DAILY 04/08/20 05/23/20 History Acetaminophen Tab [Tylenol] 650 mg PO Q6HR PRN tab 04/13/20 05/23/20 Rx Hydrocodone/Acetaminophen [[place] 1 tab PO TID PRN #9 tab 04/13/20 05/23/20 Rx 5-325] ALPRAZolam [Xanax] 0.5 mg PO BID@1000,1700 05/23/20 05/23/20 History Cefuroxime [Ceftin] 250 mg PO BID@0800,2000 05/23/20 05/23/20 History Diclofenac 0.1% Ophth Soln 1 drop LEFT EYE QID 05/23/20 05/23/20 History [Voltaren 0.1% Ophth Soln] Ferrous Sulfate [Feosol] 325 mg PO BID 05/23/20 05/23/20 History Spironolactone [Aldactone] 12.5 mg PO DAILY PRN 05/23/20 05/23/20 History Vit C/E/Zn/Coppr/Lutein/Zeaxan 1 cap PO BID@1000,1700 05/23/20 05/23/20 History [Preservision Areds 2 Softgel] Allergies Allergy/AdvReac Type Severity Reaction Status Date / Time zolpidem [From Ambien] AdvReac Hallucinati Verified 05/23/20 14:24 ons Surgical - Exam Vital Signs Temp Pulse Resp BP Pulse Ox 98.3 F 64 18 126/80 96 05/23/20 12:38 05/23/20 12:38 05/23/20 12:38 05/23/20 12:38 05/23/20 12:38 Results - Labs 05/24/20 05:58 05/24/20 05:58 Abnormal Lab Results - Last 24 Hours (Table) 05/23/20 05/24/20 05/24/20 Range/Units 20:10 05:58 05:58 Hgb 10.5 L (11.4-16.0) gm/dL MCHC 29.5 L (31.0-37.0) g/dL RDW 22.7 H (11.5-15.5) % Creatinine 1.05 H (0.52-1.04) mg/dL POC Glucose (mg/dL) 103 H (75-99) mg/dL Alkaline Phosphatase 37 L (38-126) U/L Total Protein 5.3 L (6.3-8.2) g/dL Albumin 2.9 L (3.5-5.0) g/dL Triglycerides 162 H (<150) mg/dL Diabetes panel 05/24/20 05/24/20 Range/Units 05:58 05:58 Sodium 140 (137-145) mmol/L Potassium 3.9 (3.5-5.1) mmol/L Chloride 107 (98-107) mmol/L Carbon Dioxide 29 (22-30) mmol/L BUN 15 (7-17) mg/dL Creatinine 1.05 H (0.52-1.04) mg/dL Glucose 83 (74-99) mg/dL Hemoglobin A1c 5.4 (4.0-6.0) % Calcium 8.7 (8.4-10.2) mg/dL AST 22 (14-36) U/L ALT 10 (4-34) U/L Alkaline Phosphatase 37 L (38-126) U/L Total Protein 5.3 L (6.3-8.2) g/dL Albumin 2.9 L (3.5-5.0) g/dL Triglycerides 162 H (<150) mg/dL HDL Cholesterol 41 (40-60) mg/dL Calcium panel 05/24/20 Range/Units 05:58 Calcium 8.7 (8.4-10.2) mg/dL Albumin 2.9 L (3.5-5.0) g/dL Pituitary panel 05/24/20 Range/Units 05:58 Sodium 140 (137-145) mmol/L Potassium 3.9 (3.5-5.1) mmol/L Chloride 107 (98-107) mmol/L Carbon Dioxide 29 (22-30) mmol/L BUN 15 (7-17) mg/dL Creatinine 1.05 H (0.52-1.04) mg/dL Glucose 83 (74-99) mg/dL Calcium 8.7 (8.4-10.2) mg/dL Adrenal panel 05/24/20 Range/Units 05:58 Sodium 140 (137-145) mmol/L Potassium 3.9 (3.5-5.1) mmol/L Chloride 107 (98-107) mmol/L Carbon Dioxide 29 (22-30) mmol/L BUN 15 (7-17) mg/dL Creatinine 1.05 H (0.52-1.04) mg/dL Glucose 83 (74-99) mg/dL Calcium 8.7 (8.4-10.2) mg/dL Total Bilirubin 0.6 (0.2-1.3) mg/dL AST 22 (14-36) U/L ALT 10 (4-34) U/L Alkaline Phosphatase 37 L (38-126) U/L Total Protein 5.3 L (6.3-8.2) g/dL Albumin 2.9 L (3.5-5.0) g/dL
[2020-05-24 17:00] LABS: Glucose,Whole Blood 117 mg/dL (75-99)
[2020-05-24 19:30] LABS: Folate, Serum 13.9 ng/mL
[2020-05-24 19:32] LABS: Glucose,Whole Blood 148 mg/dL (75-99)
[2020-05-24] MEDS: INSULIN DETEMIR (LEVEMIR) 100 UNIT/ML SYR SQ SCH (21:43)
[2020-05-24] MEDS: RIVAROXABAN 15 MG TAB PO SCH (21:44)
[2020-05-24] MEDS: ATORVASTATIN 80 MG TAB PO SCH (21:44)
[2020-05-24] MEDS: lisinopriL 5 MG TAB PO SCH (21:44)
[2020-05-24] MEDS: VISION SHIELD PO SCH (21:44)
[2020-05-24] MEDS: PANTOPRAZOLE 40 MG TABLET PO SCH (21:44)
[2020-05-25 06:36] LABS: Glucose,Whole Blood 95 mg/dL (75-99)
[2020-05-25] MEDS: INSULIN ASPART (NovoLOG) 100 UNIT/ML VIAL SQ SCH ×4 (06:38→20:25)
--- NOTE | 2020-05-25 08:38 | P.PN ---
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, patient was recently hospitalized at [facility] in February 2020 where she was admitted for increased dizziness and lightheadedness and underwent upper and lower endoscopy that showed initially Schatzki's ring with diverticulosis and 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 that was treated with argon treatment, patient also during the last hospital admission went into atrial fibrillation with rapid ventricular response she ended up with acute systolic heart failure underwent echocardiogram that showed ejection fraction of 30-35%, with a mild aortic stenosis and aortic sclerosis, no mitral regurgitation but there was mild tricuspid regurgitation, patient was treated with the heparin drip and subsequently she was switched back to Xarelto 15 mg orally once every day, patient became quite short of breath and she was requiring BiPAP treatment however she elected to go into hospice care she went back to [facility] under hospice care while she was at [facility] she elected to sign herself off of hospice care and she want medical care at that time subsequently her medications were restarted and the patient was treated medically she was just discharged from [facility] 24 hours ago and she went to her daughter's house however she became quite weak and extreme short of breath and she was admitted to the hospital for elective severe bilateral pleural effusion with acute systolic heart failure and was treated with IV diuretics and was seen in consultation by cardiology as well as pulmonary medicine, and she was discharged [facility] for physical therapy rehabilitation she is closed left [facility] and was seen in my office a few days ago and she was doing fine today she developed to have a significant in the left eye associated with increased confusion and the patient could not find the right words she was complaining of increased headache, the pain got out of hand so her daughter contacted her eye doctor who told her to take her to the emergency department for evaluation, patient had a computed tomography scan of the brain did not show any evidence of acute infarct or bleed, it did show generalized atrophy with small vessel disease, she had an x-ray of the pelvis and head and was negative for acute fracture patient's daughter stated that she fell in the bathroom and she had to help her up without any injury, patient was recently diagnosed with macular degeneration as well as she was started on PreserVision as well. 05/24: Patient's mental status seems to be back to baseline. She is able to verbalize that she is having trouble with some recall on occasion and she can recognize the error. Blood pressure is much improved this morning 130/58, heart rate 52, pulse ox 97% on 2 L. Patient is been afebrile. Carotid ultrasound revealed left internal carotid artery stenosis of 70%. Past surgery consult will be added. Patient has had a right-sided endarterectomy in 2016. Repeat CBC is unremarkable. Electrolytes within normal limits. Creatinine 1.05. Blood sugar 87. Triglycerides 162, cholesterol 117, LDL 44, HDL 41. Discussed case with Dr. Salas, neurologist, he plans to order MRI and EEG. Nursing has been updated. 05/25: CT angiogram of the head and neck revealed hemodynamic stenosis of the proximal internal carotid artery corresponding to Doppler study of 70% reduction. EEG is abnormal due to generalized rhythmic delta activity suggestive mild encephalopathy among specified etiology. No focal slowing. No interictal seen as no seizure seen during study. B12 612. Folate 13.9. Hemoglobin A1c 5.4. HSV testing and folate pending. Dr. Fagan's increase Lipitor to 80 mg daily and consider aspirin in addition to Xarelto. Patient has been afebrile, heart rate 63, blood pressure 186/71, pulse ox 94% on room air. Speech therapy has evaluated with recommendations for ECF with or without therapy. PT and OT to evaluate. Anticipate need for subacute rehab and plan for [facility] for tomorrow. Patient will be started on aspirin 81 mg daily. Objective - Vital Signs Vital signs: Vital Signs Temp 98.1 F 05/25/20 00:00 Pulse 63 05/25/20 04:00 Resp 18 05/25/20 04:00 BP 186/71 05/25/20 04:00 Pulse Ox 94 L 05/25/20 04:00 Intake & Output 05/24/20 05/25/20 05/25/20 18:59 06:59 18:59 Intake Total 1000 Output Total 250 Balance 1000 -250 Weight 62.3 kg Intake: Intake, IV Titration 160 Amount Sodium Chloride 0.9% 1, 160 000 ml @ 20 mls/hr IV . Q24H [facility] Rx#:[id number] Oral 840 Output: Urine 250 Other: Voiding Method Bedside Commode Bedside Commode # Voids 2 2 - Exam Review of Systems Constitutional: Reports anorexia, Reports chronic headaches, Reports chronic pain, Reports fatigue, Reports weakness, Reports weight loss Eyes: left pain, bilateral blurred vision Ears, nose, mouth and throat: Denies dysphagia, Denies neck lump, Denies sore throat, Denies vertigo Cardiovascular: Denies chest pain, Denies claudication, Denies decreased exercise tolerance, Denies lightheadedness, Denies rapid heart beat, Denies sh ortness of breath, Denies syncope Respiratory: Denies congestion, Denies cough, Denies cough with sputum, Denies home oxygen, Denies sleep apnea, Denies snoring, Denies wheezing Gastrointestinal: Reports loss of appetite, Denies abdominal pain, Denies bloating, Denies BRBPR, Denies heartburn, Denies melena, Denies nausea, Denies vomiting Genitourinary: Denies dysuria, Denies nocturia Musculoskeletal: Denies myalgias Musculoskeletal: absent: ankle pain, ankle stiffness, ankle swelling, elbow pain, elbow stiffness, elbow swelling, foot pain, foot stiffness, foot swelling, hand pain, hand stiffness, hand swelling, hip pain, hip stiffness, hip swelling, knee pain, knee stiffness, knee swelling, shoulder pain, shoulder stiffness, shoulder swelling, wrist pain, wrist stiffness, wrist swelling Integumentary: Denies pruritus, Denies rash Neurological: Reports confusion, Reports gait dysfunction, Reports weakness Psychiatric: Reports anxiety, Reports depression, Denies sadness/tearfulness, Denies sleep disturbances, Denies suicidal ideation Endocrine: Reports fatigue Physical examination: GEN: This is an 89-year-old female. Patient is resting in bed and appears to be comfortable. HEENT: Head is atraumatic, normocephalic, pupils were equal round reactive to light and accommodations, extraocular muscle movement were intact. Oral mucous membranes are dry patient sounded to the upper and lower lip. Neck: Supple, no JVP, decreased carotid upstroke bilaterally. Chest: Decreased breath sounds at the bases, there is no chest wall tenderness no intercostal retractions there is no expiratory wheezes. Heart: First heart sound is depressed, second heart sounds normal, there is systolic murmur 2/6 located at the right second intercostal space related to the base of the neck per Abdomen: Soft, nontender, nondistended, positive bowel sounds. Extremities: No pedal edema bilaterally, dorsalis pedis palpable bilaterally. No calf tenderness. Neurologic examination: Patient is awake and alert and oriented 3. No focal neuro deficits. Cranial nerves III-12 appear grossly intact. - Labs CBC & Chem 7: 05/24/20 05:58 05/24/20 05:58 Labs: Abnormal Lab Results - Last 24 Hours (Table) 05/24/20 05/24/20 Range/Units 16:59 19:31 POC Glucose (mg/dL) 117 H 148 H (75-99) mg/dL Assessment and Plan Plan: Assessment and Plan 1. 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 Patient was prescribed diclofenac eyedrops 0.1% apply 4 times every day, patient also was seen ophthalmology, he was recommended to monitor the patient very closely, along with a recent diagnosis of adult macular degeneration for which she was started on PreserVision. 2. TIA with confusion seems to be back to baseline. Echocardiogram was done this year results are in the system ejection fraction 35% mild aortic stenosis and mild mitral regurgitation. Start aspirin 81 mg daily and continue Xarelto. 3. Paroxysmal atrial fibrillation. Continue patient on metoprolol 50 mg orally twice every day as well as Xarelto 15 mg orally once every day. 4. History of coronary artery disease status post three-vessel CABG in 1995. Continue patient on metoprolol 50 mg orally twice every day as well as Lipitor 10 mg orally once every day. 5. Carotid artery disease status post carotid endarterectomy. Stable. We will check ultrasound the carotids. 6. Carotid artery stenosis 70%. Consult vascular surgery appreciated with Dr. Fagan. 7. Diabetes mellitus type 2, insulin requiring. Continue Levemir 14 units at bedtime and NovoLog scale before meals and at bedtime, Tradjenta 5 mg daily. Continue Accu-Chek before each meal and at bedtime along with a sliding scale insulin. 8. 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 Continue metoprolol 50 mg orally twice every day, lisinopril 10 mg orally once every day at amlodipine 5 mg orally once every day.. 9. Hyperlipidemia. Continue Lipitor 10 mg daily. 10. Chronic vertigo. Stable. 11. Gastroesophageal reflux disease. Continue Protonix 40 mg daily. 12. DVT prophylaxis. Currently on Xarelto. 13. GI prophylaxis. Continue patient on Protonix. 14. Patient is no code. Discharge plan: [place] [facility] [address] on Friday Impression and plan of care have been directed as dictated by the signing physician. Nataliia Alejo nurse practitioner acting as scribe for signing physician.
[2020-05-25] MEDS: DICLOFENAC 0.1% OPHTH SOLN 2.5 ML BTL LEFT EYE SCH ×4 (09:12→20:24)
[2020-05-25] MEDS: hydrALAZINE HCL 20 MG/ML 1 ML VIAL IVP PRN (09:18)
[2020-05-25] MEDS: FERROUS SULFATE 325 MG TAB PO SCH ×2 (09:18→20:20)
[2020-05-25] MEDS: LINAGLIPTIN 5 MG TABLET PO SCH (09:18)
[2020-05-25] MEDS: ALPRAZolam 0.5 MG TAB PO SCH ×2 (09:18→18:19)
[2020-05-25] MEDS: VIT A,C & E-LUTEIN-MINERALS 1 EACH TAB PO SCH ×2 (09:18→18:19)
[2020-05-25] MEDS: ASPIRIN 81 MG PO SCH (09:18)
[2020-05-25] MEDS: METOPROLOL TARTRATE 50 MG TAB PO SCH ×2 (09:19→20:20)
[2020-05-25] MEDS: polyethylene glycoL 3350 17 GM POWD.PACK PO SCH (09:19)
[2020-05-25] MEDS: VISION SHIELD PO SCH ×2 (09:19→20:24)
[2020-05-25 09:37] LABS: Albumin 3.2 g/dL (3.5-5.0); Calcium 9.2 mg/dL (8.4-10.2); Potassium 4.1 mmol/L (3.5-5.1); Total Protein 5.7 g/dL (6.3-8.2)
[2020-05-25] MEDS: lisinopriL 20 MG TAB PO SCH (09:46)
[2020-05-25 11:08] LABS: Anisocytosis Moderate; Basophils # (A) 0.1 k/uL (0-0.2); Basophils % (A) 1 %; Eosinophils # (A) 0.3 k/uL (0-0.7); Eosinophils % (A) 3 %; HCT 37.8 % (34.0-46.0); HGB 11.1 gm/dL (11.4-16.0); Hypochromasia Marked; Lymphocytes # (A) 1.5 k/uL (1.0-4.8); Lymphocytes % (A) 17 %; MCHC 29.5 g/dL (31.0-37.0); MCV 84.8 fL (80.0-100.0); Mean Platelet Volume 9.3; Microcytosis Moderate; Monocytes # (A) 0.8 k/uL (0-1.0); Monocytes % (A) 9 %; Neutrophils # (A) 5.9 k/uL (1.3-7.7); Neutrophils % (A) 68 %; Platelet Count 244 k/uL (150-450); RBC 4.46 m/uL (3.80-5.40); RDW 23.4 % (11.5-15.5); WBC 8.7 k/uL (3.8-10.6)
[2020-05-25 12:04] LABS: Glucose,Whole Blood 167 mg/dL (75-99)
--- NOTE | 2020-05-25 12:06 | P.PN ---
Subjective Progress Note Date: 05/25/20 Patient was seen at bedside and she said that she's doing much better. She denies any eye pain denies any blurry vision. She had minimal headache over the left parietal area that was lasted less than 30 minutes. Denies any weakness any numbness. Patient denies any eye pain with movement. Patient had a CT of the head and neck and a showed the left ICA of 70% stenosis. Patient stated that about the a week ago she had an episode of of slurring of her speech and was "jumbled up" which lasted for about 2 days. Objective - Vital Signs Vital signs: Vital Signs Temp 97.6 F 05/25/20 09:16 Pulse 73 05/25/20 10:35 Resp 20 05/25/20 10:35 BP 120/53 05/25/20 10:35 Pulse Ox 96 05/25/20 09:16 Intake & Output 05/24/20 05/25/20 05/25/20 18:59 06:59 18:59 Intake Total 1000 Output Total 250 Balance 1000 -250 Weight 62.3 kg Intake: Intake, IV Titration 160 Amount Sodium Chloride 0.9% 1, 160 000 ml @ 20 mls/hr IV . Q24H [facility] Rx#:[id number] Oral 840 Output: Urine 250 Other: Voiding Method Bedside Commode Bedside Commode # Voids 2 2 - Exam GENERAL: The patient is lying in bed and is not in acute distress. CHEST: The heart rate is regular rate rhythm. No murmurs to auscultation. No carotid bruit bilaterally. LUNG: Clear to auscultation bilaterally no wheezing noted throughout. Not labored breathing. ABDOMEN/GI: Bowel sounds present in all 4 quadrants. No tenderness to palpation throughout. NEUROLOGICAL: Higher mental function: The patient is awake, alert, oriented to self, place and time. Patient is following commands. No aphasia and no neglect. Cranial nerves: The pupils are round, equal 2mm bilaterally and reactive to light and accommodation. Fundoscopy: attempted but had hard time assessing since moving her eyes. Visual brar are full to confrontation throughout. Visual acuity is 20/20 OD and 20/25 OS without correction. Extraocular movement is intact no nystagmus is noted. Facial sensation is normal to touch throughout. The facial strength is normal throughout. Hearing is normal bilaterally to hand rub. Tongue is midline and moved [id number] without any difficulty. No dysarthria is noted. Shoulder shrug is normal bilaterally. Motor: Gait is defered. The strength: The patient did not allow me to put pressure on her right lower extremity since she said after CABG (had vein taking out) she is sensitive to touch but was moving above gravity without drift. Otherwise is 5 over 5 throughout. Normal tone and bulk. Cerebellum: Normal finger to nose heel to chin bilaterally. Sensation: Sensation is normal to touch throughout except right lower extremity unable to assess since patient asked not to be examined because of chronic pain she has. Reflexes (right/left): 2+ throughout except 1+ at left ankle. She did not want to be assessed of right lower extremity. Plantars are downgoing on left but not assessed on the right. - Labs CBC & Chem 7: 05/25/20 05:30 05/25/20 05:30 Labs: Abnormal Lab Results - Last 24 Hours (Table) 05/24/20 05/24/20 05/25/20 Range/Units 16:59 19:31 05:30 Hgb 11.1 L (11.4-16.0) gm/dL MCHC 29.5 L (31.0-37.0) g/dL RDW 23.4 H (11.5-15.5) % POC Glucose (mg/dL) 117 H 148 H (75-99) mg/dL Total Protein (6.3-8.2) g/dL Albumin (3.5-5.0) g/dL 05/25/20 Range/Units 05:30 Hgb (11.4-16.0) gm/dL MCHC (31.0-37.0) g/dL RDW (11.5-15.5) % POC Glucose (mg/dL) (75-99) mg/dL Total Protein 5.7 L (6.3-8.2) g/dL Albumin 3.2 L (3.5-5.0) g/dL Assessment and Plan Assessment: This is an 89-year-old right-handed female with medical history of Right carotid artery occlusion status post carotid endarterectomy in 2015, coronary artery disease status post CABG in 1995, who presented to the emergency depart ment on the 05/23/2020 for difficulty finding her words, left eye pain and headache. The patient has been having left upper quadrant pain for the past 4-6 weeks and has been worse in the past one week especially yesterday in morning. She had minor headache over the left parietal area that resolved. She denies of blurring vision, eyes pain with movement or redness or trauma to eye. Patient followed up with an manager intermediate about 2 weeks ago regarding left eye pain. Currently her left eye pain is 1/10. She also has been having confusion and word finding difficulty. Symptomatic Left ICA stenosis (about one week ago had slurred speech, "jumbled speech" and difficulty getting her words out). Left eye pain--resolved History of right carotid endarterectomy in 2016 Acute kidney insufficiency--resolved Uncontrolled HTN Atrial fibrillation Hyperlipidemia Diabetes type 2 History of coronary artery disease status post CABG Plan: -Carotid duplex: Greater than 70% stenosis in the left ICA. The patient had the carotid duplex in 2016 and it seemed left ICA stenosis is worse. -CTA of the head and neck: Reported as findings likely greater than 70% diameter reduction by NASCET criteria. -For her atrial fibrillation she is on Xarelto 50 mg daily. Regarding her carotid stenosis I recommend that patient be on dual antiplatelet but she is already on Xarelto so possibly consider adding aspirin on top of the Xarelto since the degree of bleeding is higher with dual antiplatelet in addition to the Xarelto. -Continue Lipitor 80 mg. -Dr. Fagan is on board for ICA stenosis, and he said the patient will follow up as an outpatient and he'll address this. -I notified the daughter that I want to get MRI of the brain as well as the orbits but the daughter stated that the patient cannot get MRI as an inpatient since she is claustrophobic even if she got some sedation and that she wants the patient to get the open MRIs so patient needs to get an MRI workup as an outpatient. Regarding her left eye pain: Per the primary care physician the patient follows up with Dr. Laurent (Ophthamologist) and the patient needs to follow-up with him as an outpatient regarding her eye pain. I highly doubt that this is a left temporal arteritis. I ordered a stat ESR: 15 (Therefore unlikely temporal arteritis). Pending HSV PCR. Routine EEG on 05/24/20 (since was having altered mental status): Mild encephalopathy. There is no focal slowing. There is no interictal or seizure seen. TSH was 1.94 on 04/08/2020. Last hemoglobin A1c is 6.2 on 03/29/2020. Order vitamin B12: 612, folate:13.9 From a neurology perspective the patient needs to follow up with neurologist as an outpatient the as well as Dr. Fagan regarding the left ICA stenosis to get addressed. She also needs to follow-up with the phthalmologist (Dr. Laurent). Regarding the patient's blood pressure, diabetes will defer the management to the primary team. Casey Salas M.D. Neuro-hospitalist Time with Patient: Greater than 30
--- NOTE | 2020-05-25 12:51 | P.DS ---
Providers Date of admission: 05/23/20 14:44 Expected date of discharge: 05/25/20 Attending physician: Marilyn Nash Consults: 05/23/20 14:44 Consult Physician Routine Consulting Provider: Casey Salas Consult Reason/Comments: tia Do you want consulting provider notified?: Yes 05/24/20 08:26 Consult Physician Routine Consulting Provider: Dorian Fagan Consult Reason/Comments: ICA 70% Do you want consulting provider notified?: Yes Primary care physician: Marilyn Nash Hospital Course: 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, patient was recently hospitalized at [facility] in February 2020 where she was admitted for increased dizziness and lightheadedness and underwent upper and lower endoscopy that showed initially Schatzki's ring with diverticulosis and 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 that was treated with argon treatment, patient also during the last hospital admission went into atrial fibrillation with rapid ventricular response she ended up with acute systolic heart failure underwent echocardiogram that showed ejection fraction of 30-35%, with a mild aortic stenosis and aortic sclerosis, no mitral regurgitation but there was mild tricuspid regurgitation, patient was treated with the heparin drip and subsequently she was switched back to Xarelto 15 mg orally once every day, patient became quite short of breath and she was requiring BiPAP treatment however she elected to go into hospice care she went back to [facility] under hospice care while she was at [facility] she elected to sign herself off of hospice care and she want medical care at that time subsequently her medications were restarted and the patient was treated medically she was just discharged from [facility] 24 hours ago and she went to her daughter's house however she became quite weak and extreme short of breath and she was admitted to the hospital for elective severe bilateral pleural effusion with acute systolic heart failure and was treated with IV diuretics and was seen in consultation by cardiology as well as pulmonary medicine, and she was discharged [facility] for physical therapy rehabilitation she is closed left [facility] and was seen in my office a few days ago and she was doing fine today she developed to have a significant in the left eye associated with increased confusion and the patient could not find the right words she was complaining of increased headache, the pain got out of hand so her daughter contacted her eye doctor who told her to take her to the emergency department for evaluation, patient had a computed tomography scan of the brain did not show any evidence of acute infarct or bleed, it did show generalized atrophy with small vessel disease, she had an x-ray of the pelvis and head and was negative for acute fracture patient's daughter stated that she fell in the bathroom and she had to help her up without any injury, patient was recently diagnosed with macular degeneration as well as she was started on PreserVision as well. 05/24: Patient's mental status seems to be back to baseline. She is able to verbalize that she is having trouble with some recall on occasion and she can recognize the error. Blood pressure is much improved this morning 130/58, heart rate 52, pulse ox 97% on 2 L. Patient is been afebrile. Carotid ultrasound revealed left internal carotid artery stenosis of 70%. Past surgery consult will be added. Patient has had a right-sided endarterectomy in 2016. Repeat CBC is unremarkable. Electrolytes within normal limits. Creatinine 1.05. Blood sugar 87. Triglycerides 162, cholesterol 117, LDL 44, HDL 41. Discussed case with Dr. Salas, neurologist, he plans to order MRI and EEG. Nursing has been updated. 05/25: CT angiogram of the head and neck revealed hemodynamic stenosis of the proximal internal carotid artery corresponding to Doppler study of 70% reduction. EEG is abnormal due to generalized rhythmic delta activity suggestive mild encephalopathy among specified etiology. No focal slowing. No interictal seen as no seizure seen during study. B12 612. Folate 13.9. Hemoglobin A1c 5.4. HSV testing and folate pending. Dr. Fagan's increase Lipitor to 80 mg daily and consider aspirin in addition to Xarelto. Patient has been afebrile, heart rate 63, blood pressure 186/71, pulse ox 94% on room air. Speech therapy has evaluated with recommendations for ECF with or without therapy. Discharge plan is for [facility]' for subacute rehab. Covert testing has been ordered. Patient will be discharged once all arrangements are completed and Covid is negative. Repeat blood pressure 120/53. Discharge diagnoses: 1. 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 Patient was prescribed diclofenac eyedrops 0.1% apply 4 times every day, patient also was seen ophthalmology, he was recommended to monitor the patient very closely, along with a recent diagnosis of adult macular degeneration for which she was started on PreserVision. 2. TIA with confusion seems to be back to baseline. Echocardiogram this year ejection fraction 35%, mild aortic stenosis and mild mitral regurgitation. 3. Paroxysmal atrial fibrillation. 4. History of coronary artery disease status post three-vessel CABG in 1995. 5. Carotid artery disease status post right carotid endarterectomy. Stable. 6. Left carotid artery stenosis 70%. 7. Diabetes mellitus type 2, insulin requiring. 8. 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 9. Hyperlipidemia. 10. Chronic vertigo. 11. Gastroesophageal reflux disease. Discharge plan: [facility] Impression and plan of care have been directed as dictated by the signing physician. Nataliia Alejo nurse practitioner acting as scribe for signing physician. Patient Condition at Discharge: Good Plan - Discharge Summary Discharge Rx Participant: No New Discharge Prescriptions: New Aspirin 81 mg PO DAILY chew Atorvastatin [Lipitor] 80 mg PO HS #30 tab lisinopriL [Zestril] 20 mg PO DAILY #30 tab Continue Insulin Detemir [Levemir Flextouch] 14 units SQ HS polyethylene glycoL 3350 [Miralax] 17 gm PO DAILY Pantoprazole [Protonix] 40 mg PO HS Ipratropium-Albuterol Nebulize [Duoneb 0.5 mg-3 mg/3 ml Soln] 3 ml INHALATION RT-QID PRN PRN Reason: Shortness Of Breath Simvastatin [Zocor] 20 mg PO HS Rivaroxaban [Xarelto] 15 mg PO HS Metoprolol Tartrate [Lopressor] 50 mg PO BID Linagliptin [Tradjenta] 5 mg PO DAILY Acetaminophen Tab [Tylenol] 650 mg PO Q6HR PRN tab PRN Reason: Mild Pain Or Fever > 100.5 Ferrous Sulfate [Iron (65 MG Elemental)] 325 mg PO BID Diclofenac 0.1% Ophth Soln [Voltaren 0.1% Ophth Soln] 1 drop LEFT EYE QID Vit C/E/Zn/Coppr/Lutein/Zeaxan [Preservision Areds 2 Softgel] 1 cap PO BID@1000,1700 Spironolactone [Aldactone] 12.5 mg PO DAILY PRN PRN Reason: Edema Hydrocodone/Acetaminophen [[place] 5-325] 1 tab PO TID PRN #9 tab PRN Reason: Pain ALPRAZolam [Xanax] 0.5 mg PO BID@1000,1700 #6 tab Discontinued Lisinopril [Prinivil] 5 mg PO HS Cefuroxime [Ceftin] 250 mg PO BID@0800,1999 Discharge Medication List Insulin Detemir [Levemir Flextouch] 14 units SQ HS 03/02/20 [History] Ipratropium-Albuterol Nebulize [Duoneb 0.5 mg-3 mg/3 ml Soln] 3 ml INHALATION RT-QID PRN 04/08/20 [History] Linagliptin [Tradjenta] 5 mg PO DAILY 04/08/20 [History] Metoprolol Tartrate [Lopressor] 50 mg PO BID 04/08/20 [History] Pantoprazole [Protonix] 40 mg PO HS 04/08/20 [History] Rivaroxaban [Xarelto] 15 mg PO HS 04/08/20 [History] Simvastatin [Zocor] 20 mg PO HS 04/08/20 [History] polyethylene glycoL 3350 [Miralax] 17 gm PO DAILY 04/08/20 [History] Acetaminophen Tab [Tylenol] 650 mg PO Q6HR PRN tab 04/13/20 [Rx] Diclofenac 0.1% Ophth Soln [Voltaren 0.1% Ophth Soln] 1 drop LEFT EYE QID 05/23/20 [History] Ferrous Sulfate [Iron (65 MG Elemental)] 325 mg PO BID 05/23/20 [History] Spironolactone [Aldactone] 12.5 mg PO DAILY PRN 05/23/20 [History] Vit C/E/Zn/Coppr/Lutein/Zeaxan [Preservision Areds 2 Softgel] 1 cap PO BID@1000,1700 05/23/20 [History] ALPRAZolam [Xanax] 0.5 mg PO BID@1000,1700 #6 tab 05/25/20 [Rx] Aspirin 81 mg PO DAILY chew 05/25/20 [Rx] Atorvastatin [Lipitor] 80 mg PO HS #30 tab 05/25/20 [Rx] Hydrocodone/Acetaminophen [[place] 5-325] 1 tab PO TID PRN #9 tab 05/25/20 [Rx] lisinopriL [Zestril] 20 mg PO DAILY #30 tab 05/25/20 [Rx] Follow up Appointment(s)/Referral(s): Marilyn Nash MD [Primary Care Provider] - 1-2 days Patient Instructions/Handouts: Altered Mental Status (ED), Eye Pain (ED)
[2020-05-25] MEDS: SODIUM CHLORIDE 0.9% 1,000 ML IV SCH (14:53)
[2020-05-25 17:09] LABS: Glucose,Whole Blood 118 mg/dL (75-99)
[2020-05-25] MEDS: ATORVASTATIN 80 MG TAB PO SCH (20:20)
[2020-05-25] MEDS: PANTOPRAZOLE 40 MG TABLET PO SCH (20:20)
[2020-05-25] MEDS: RIVAROXABAN 15 MG TAB PO SCH (20:20)
[2020-05-25] MEDS: INSULIN DETEMIR (LEVEMIR) 100 UNIT/ML SYR SQ SCH (20:24)
[2020-05-25 20:27] LABS: Glucose,Whole Blood 162 mg/dL (75-99)
[2020-05-26 02:41] VITALS: PULSE 63; RESP 16
[2020-05-26 06:25] LABS: Glucose,Whole Blood 90 mg/dL (75-99)
[2020-05-26] MEDS: INSULIN ASPART (NovoLOG) 100 UNIT/ML VIAL SQ SCH (06:44)
[2020-05-26] MEDS: polyethylene glycoL 3350 17 GM POWD.PACK PO SCH (08:40)
[2020-05-26] MEDS: METOPROLOL TARTRATE 50 MG TAB PO SCH (09:20)
[2020-05-26] MEDS: ALPRAZolam 0.5 MG TAB PO SCH (09:21)
[2020-05-26] MEDS: ASPIRIN 81 MG PO SCH (09:21)
[2020-05-26] MEDS: LINAGLIPTIN 5 MG TABLET PO SCH (09:21)
[2020-05-26] MEDS: lisinopriL 20 MG TAB PO SCH (09:21)
[2020-05-26] MEDS: FERROUS SULFATE 325 MG TAB PO SCH (09:21)
[2020-05-26] MEDS: DICLOFENAC 0.1% OPHTH SOLN 2.5 ML BTL LEFT EYE SCH (09:22)
[2020-05-26] MEDS: VIT A,C & E-LUTEIN-MINERALS 1 EACH TAB PO SCH (09:24)
[2020-05-26 11:57] VITALS: BP 156/60; TEMP 97.9
== END 2020-05-26 10:56 | DRG 123 ==
LOC: EC 12:28 → 3SCARD 14:44 → OBSVTOIN 05-25 08:29
PROVIDERS: ADMIT Internal Medicine; ATTEND Internal Medicine
DX: H47.012 Ischemic optic neuropathy, left eye (principal); G45.9 Transient cerebral ischemic attack, unspecified; I50.22 Chronic systolic (congestive) heart failure; G93.40 Encephalopathy, unspecified; I25.10 Atherosclerotic heart disease of native coronary artery without angina pectoris; E78.5 Hyperlipidemia, unspecified; E11.9 Type 2 diabetes mellitus without complications; H35.30 Unspecified macular degeneration; K21.9 Gastro-esophageal reflux disease without esophagitis; I65.22 Occlusion and stenosis of left carotid artery; I48.0 Paroxysmal atrial fibrillation; I08.2 Rheumatic disorders of both aortic and tricuspid valves; I11.0 Hypertensive heart disease with heart failure; G62.9 Polyneuropathy, unspecified; Z20.828 Contact with and (suspected) exposure to other viral communicable diseases; N28.9 Disorder of kidney and ureter, unspecified; Z79.4 Long term (current) use of insulin; Z79.899 Other long term (current) drug therapy; Z79.01 Long term (current) use of anticoagulants; Z88.8 Allergy status to other drugs, medicaments and biological substances; I25.2 Old myocardial infarction; Z90.89 Acquired absence of other organs; Z95.5 Presence of coronary angioplasty implant and graft; Z98.890 Other specified postprocedural states; Z87.891 Personal history of nicotine dependence; Z80.8 Family history of malignant neoplasm of other organs or systems; Z95.1 Presence of aortocoronary bypass graft
CPT/HCPCS: 36415; 70450; 70496; 70498; 73502; 80053; 80061; 82607; 82746; 82747; 83036; 83735; 84100; 84484; 85025; 85610; 85652; 85730; 87529; 93005; 93880; 95816; 96361; 96374; 96375; 99285

== ENCOUNTER 2020-06-21 04:33 | Inpatient (IN) | payer MEDICARE, BC ==
[2020-06-21] MEDS ORDERED: SODIUM CHLORIDE 0.9% 1,000 ML IV STA (04:54)
[2020-06-21] MEDS ORDERED: LABETALOL 5 MG/ML VIAL MDV IVP STA ×2 (04:54→07:32)
[2020-06-21 04:56] LABS: Glucose,Whole Blood 130 mg/dL (75-99)
--- NOTE | 2020-06-21 04:58 | ED ---
Neuro HPI - General Chief Complaint: Neuro Symptoms/Deficit Stated Complaint: Headache Time Seen by Provider: 06/21/20 04:43 Source: patient, EMS Mode of arrival: EMS Limitations: no limitations - History of Present Illness Is the patient presenting with stroke symptoms?: No Initial Comments: Johanne is an 89-year-old female who presents the emergency department acutely encephalopathic. Apparently the patient began complaining of vision changes and a severe headache, she cannot provide any further history she will confirm her n devi or date of , she cannot provide any history and duration of the headache. Review of the medical record reveals that the patient was admitted last month with altered mental status and profound hypertension, she had a full workup including neuro evaluation and was normalization of her blood pressure she normalized. I suspect the patient is suffering from hypertensive encephalopathy Daughter reports her mother was in her usual state of health yesterday, BP check yesterday afternoon was 140/78 - Related Data Home Medications: Home Medications Medication Instructions Recorded Confirmed Insulin Detemir [Levemir Flextouch] 14 units SQ HS 03/02/20 05/23/20 Ipratropium-Albuterol Nebulize 3 ml INHALATION RT-QID PRN 04/08/20 05/23/20 [Duoneb 0.5 mg-3 mg/3 ml Soln] Linagliptin [Tradjenta] 5 mg PO DAILY 04/08/20 05/23/20 Metoprolol Tartrate [Lopressor] 50 mg PO BID 04/08/20 05/23/20 Pantoprazole [Protonix] 40 mg PO HS 04/08/20 05/23/20 Rivaroxaban [Xarelto] 15 mg PO HS 04/08/20 05/23/20 polyethylene glycoL 3350 [Miralax] 17 gm PO DAILY 04/08/20 05/23/20 Diclofenac 0.1% Ophth Soln 1 drop LEFT EYE QID 05/23/20 05/23/20 [Voltaren 0.1% Ophth Soln] Ferrous Sulfate [Iron (65 MG 325 mg PO BID 05/23/20 05/23/20 Elemental)] Vit C/E/Zn/Coppr/Lutein/Zeaxan 1 cap PO BID@1000,1700 05/23/20 05/23/20 [Preservision Areds 2 Softgel] Previous Rx's Medication Instructions Recorded Acetaminophen Tab [Tylenol] 650 mg PO Q6HR PRN tab 04/13/20 ALPRAZolam [Xanax] 0.5 mg PO BID@1000,1700 #6 tab 05/25/20 Aspirin 81 mg PO DAILY chew 05/25/20 Atorvastatin [Lipitor] 80 mg PO HS #30 tab 05/25/20 Cefuroxime [Ceftin] 250 mg PO BID 7 Days #14 tab 05/25/20 Hydrocodone/Acetaminophen [Fil[place] 1 tab PO TID PRN #9 tab 05/25/20 5-325] lisinopriL [Zestril] 20 mg PO DAILY #30 tab 05/25/20 Spironolactone [Aldactone] 12.5 mg PO DAILY #0 05/26/20 Allergies/Adverse Reactions: Allergies Allergy/AdvReac Type Severity Reaction Status Date / Time zolpidem [From Ambien] AdvReac Hallucinati Verified 05/23/20 14:24 ons Review of Systems ROS Statement: Those systems with pertinent positive or pertinent negative responses have been documented in the HPI. ROS Other: All systems not noted in ROS Statement are negative. General Exam - General Exam Comments Initial Comments: Physical Exam GENERAL: Patient is well-developed and well-nourished. Agitated, appears uncomfortable HENT: Normocephalic, Atraumatic. EYES: PERRL, EOMI PULMONARY: Unlabored respirations. No audible rales rhonchi or wheezing was noted. CARDIOVASCULAR: There is a regular rate and rhythm without any murmurs gallops or rubs. ABDOMEN: Soft and nontender with normal bowel sounds. SKIN: Skin is clear with no lesions or rashes and otherwise unremarkable. : Normal external genitalia NEUROLOGIC: Oriented to name only Agitated, not cooperative MUSCULOSKELETAL: Normal extremities with adequate strength and full range of motion. No lower extremity swelling or edema. No calf tenderness. PSYCHIATRIC: Agitated Limitations: no limitations Stroke MDM - Lab Data Result diagrams: 06/21/20 05:10 06/21/20 05:10 Lab Results 06/21/20 06/21/20 06/21/20 Range/Units 04:49 05:10 05:10 WBC 10.5 (3.8-10.6) k/uL RBC 4.36 (3.80-5.40) m/uL Hgb 11.5 (11.4-16.0) gm/dL Hct 39.3 (34.0-46.0) % MCV 90.1 (80.0-100.0) fL MCH 26.5 (25.0-35.0) pg MCHC 29.4 L (31.0-37.0) g/dL RDW 20.2 H (11.5-15.5) % Plt Count 253 (150-450) k/uL Neutrophils % 68 % Lymphocytes % 17 % Monocytes % 8 % Eosinophils % 5 % Basophils % 1 % Neutrophils # 7.1 (1.3-7.7) k/uL Lymphocytes # 1.8 (1.0-4.8) k/uL Monocytes # 0.8 (0-1.0) k/uL Eosinophils # 0.5 (0-0.7) k/uL Basophils # 0.1 (0-0.2) k/uL Hypochromasia Marked Anisocytosis Moderate Microcytosis Slight PT 12.5 H (9.0-12.0) sec INR 1.2 H (<1.2) APTT 30.3 H (22.0-30.0) sec Sodium (137-145) mmol/L Potassium (3.5-5.1) mmol/L Chloride (98-107) mmol/L Carbon Dioxide (22-30) mmol/L Anion Gap mmol/L BUN (7-17) mg/dL Creatinine (0.52-1.04) mg/dL Est GFR (CKD-EPI)AfAm (>60 ml/min/1.73 sqM) Est GFR (CKD-EPI)NonAf (>60 ml/min/1.73 sqM) Glucose (74-99) mg/dL POC Glucose (mg/dL) 130 H (75-99) mg/dL POC Glu Otr Flatbed Driver ID Henderson, Tala Calcium (8.4-10.2) mg/dL Total Bilirubin (0.2-1.3) mg/dL AST (14-36) U/L ALT (4-34) U/L Alkaline Phosphatase (38-126) U/L Troponin I (0.000-0.034) ng/mL Total Protein (6.3-8.2) g/dL Albumin (3.5-5.0) g/dL Urine Color Urine Appearance (Clear) Urine pH (5.0-8.0) Ur Specific [place] (1.001-1.035) Urine Protein (Negative) Urine Glucose (UA) (Negative) Urine Ketones (Negative) Urine Blood (Negative) Urine Nitrite (Negative) Urine Bilirubin (Negative) Urine Urobilinogen (<2.0) mg/dL Ur Leukocyte Esterase (Negative) Urine RBC (0-5) /hpf Urine WBC (0-5) /hpf Ur Squamous Epith Cells (0-4) /hpf Hyaline Casts (0-2) /lpf 06/21/20 06/21/20 06/21/20 Range/Units 05:10 05:10 05:10 WBC (3.8-10.6) k/uL RBC (3.80-5.40) m/uL Hgb (11.4-16.0) gm/dL Hct (34.0-46.0) % MCV (80.0-100.0) fL MCH (25.0-35.0) pg MCHC (31.0-37.0) g/dL RDW (11.5-15.5) % Plt Count (150-450) k/uL Neutrophils % % Lymphocytes % % Monocytes % % Eosinophils % % Basophils % % Neutrophils # (1.3-7.7) k/uL Lymphocytes # (1.0-4.8) k/uL Monocytes # (0-1.0) k/uL Eosinophils # (0-0.7) k/uL Basophils # (0-0.2) k/uL Hypochromasia Anisocytosis Microcytosis PT (9.0-12.0) sec INR (<1.2) APTT (22.0-30.0) sec Sodium 139 (137-145) mmol/L Potassium 5.2 H (3.5-5.1) mmol/L Chloride 105 (98-107) mmol/L Carbon Dioxide 27 (22-30) mmol/L Anion Gap 7 mmol/L BUN 15 (7-17) mg/dL Creatinine 1.14 H (0.52-1.04) mg/dL Est GFR (CKD-EPI)AfAm 50 (>60 ml/min/1.73 sqM) Est GFR (CKD-EPI)NonAf 43 (>60 ml/min/1.73 sqM) Glucose 134 H (74-99) mg/dL POC Glucose (mg/dL) (75-99) mg/dL POC Glu Otr Flatbed Driver ID Calcium 8.9 (8.4-10.2) mg/dL Total Bilirubin 1.1 (0.2-1.3) mg/dL AST 43 H (14-36) U/L ALT 14 (4-34) U/L Alkaline Phosphatase 45 (38-126) U/L Troponin I 0.012 (0.000-0.034) ng/mL Total Protein 6.8 (6.3-8.2) g/dL Albumin 3.7 (3.5-5.0) g/dL Urine Color Light Yellow Urine Appearance Clear (Clear) Urine pH 8.0 (5.0-8.0) Ur Specific [place] 1.008 (1.001-1.035) Urine Protein 2+ H (Negative) Urine Glucose (UA) Negative (Negative) Urine Ketones Negative (Negative) Urine Blood Small H (Negative) Urine Nitrite Negative (Negative) Urine Bilirubin Negative (Negative) Urine Urobilinogen <2.0 (<2.0) mg/dL Ur Leukocyte Esterase Negative (Negative) Urine RBC 11 H (0-5) /hpf Urine WBC 2 (0-5) /hpf Ur Squamous Epith Cells 2 (0-4) /hpf Hyaline Casts 3 H (0-2) /lpf - Medical Decision Making The patient was seen and evaluated upon arrival Elderly female presenting with hypertension, headache and altered mental status - symptoms or with vision changes this is concerning for progressive syndrome or posterior reversible encephalopathy syndrome due to hypertension Labs and imaging were ordered IV labetalol and nicardipine were ordered for blood pressure management Review of patient's medical record reveals she was admitted last month for possible strokelike episode with altered mental status and was found to have profound hypertension at that time. We will aggressively treat the patient's hypertension evaluate for any acute intracranial pathology Patient's blood pressure responded after labetalol and approximately one hour of nicardipine, patient's blood pressure was decreasing rapidly in the nicardipine was discontinued Labs with no significant abnormality care was discussed with patient's primary care physician Dr. Nash who is very familiar with this patient and agrees with plan for admission with consults to cardiology and neurology for hypertensive encephalopathy - EKG Data -: EKG Interpreted by Me EKG shows normal: sinus rhythm EKG was obtained due to profound hypertension, EKG was obtained at 5:02 AM, rate of 71 and rhythm is sinus with PACs, [place] 160, care is 90, QTC [address] elevations or depressions no evidence of acute ischemia or infarction. 06/21/20 06:13 Past Medical History Past Medical History: Coronary Artery Disease (CAD), Chest Pain / Angina, Diabetes Mellitus, Hyperlipidemia, Hypertension, Myocardial Infarction ([place]), Syncope Additional Past Medical History / Comment(s): DM type II, vertigo/weakness past 5 years and pt states she has had tests but no one knows why, weakness, gait disturbance, falls, bilateral cataracts, dehydration Last Myocardial Infarction Date:: 1995 History of Any Multi-Drug Resistant Organisms: None Reported Past Surgical History: Adenoidectomy, Coronary Bypass/CABG, Heart Catheterization, Orthopedic Surgery, Tonsillectomy Additional Past Surgical History / Comment(s): 3 vessel CABG 1995 in [place], carotid endartectomy 2015, ORIF L ankle d/t fracture. Past Anesthesia/Blood Transfusion Reactions: No Reported Reaction Past Psychological History: No Psychological Hx Reported Smoking Status: Former smoker Past Alcohol Use History: None Reported Past Drug Use History: None Reported - Past Family History Mother Family Medical History: No Reported History Additional Family Medical History / Comment(s): Mother at age 82 from old age. Father Family Medical History: No Reported History Additional Family Medical History / Comment(s): Father from old age and patient does not recall his age or any medical problems. Son(s) Family Medical History: Cancer Additional Family Medical History / Comment(s): Patient has one son with history of throat cancer in remission. Patient has one daughter with no major medical problems. Patient does not have any brothers or sisters. Course Vital Signs 06/21/20 06/21/20 06/21/20 04:44 05:07 05:20 Temperature 98.4 F 98 F Pulse Rate 71 65 Respiratory 17 18 Rate Blood Pressure 238/82 248/93 222/76 O2 Sat by Pulse 98 97 Oximetry 06/21/20 06/21/20 06/21/20 05:30 05:33 05:41 Temperature Pulse Rate 70 Respiratory 18 Rate Blood Pressure 180/55 172/55 163/67 O2 Sat by Pulse 99 Oximetry 06/21/20 06/21/20 05:46 06:09 Temperature Pulse Rate 68 Respiratory 18 Rate Blood Pressure 160/54 148/53 O2 Sat by Pulse 96 Oximetry Disposition Clinical Impression: Hypertensive encephalopathy Disposition: ADMITTED IP TO THIS HOSP Condition: Serious Referrals: Marilyn Nash MD [Primary Care Provider] - 1-2 days
[2020-06-21] MEDS: niCARdipine 20 MG in SODIUM CHLORIDE 0.9% 192 ML IV SCH ×2 (05:13→12:16)
[2020-06-21 05:19] LABS: Anisocytosis Moderate; Basophils # (A) 0.1 k/uL (0-0.2); Basophils % (A) 1 %; Eosinophils # (A) 0.5 k/uL (0-0.7); Eosinophils % (A) 5 %; HCT 39.3 % (34.0-46.0); HGB 11.5 gm/dL (11.4-16.0); Hypochromasia Marked; Lymphocytes # (A) 1.8 k/uL (1.0-4.8); Lymphocytes % (A) 17 %; MCH 26.5 pg (25.0-35.0); MCHC 29.4 g/dL (31.0-37.0); MCV 90.1 fL (80.0-100.0); Mean Platelet Volume 9.5; Microcytosis Slight; Monocytes # (A) 0.8 k/uL (0-1.0); Monocytes % (A) 8 %; Neutrophils # (A) 7.1 k/uL (1.3-7.7); Neutrophils % (A) 68 %; Platelet Count 253 k/uL (150-450); RBC 4.36 m/uL (3.80-5.40); RDW 20.2 % (11.5-15.5); WBC 10.5 k/uL (3.8-10.6)
[2020-06-21 05:29] LABS: INR 1.2 (<1.2); Partial Thromboplastin Time 30.3 sec (22.0-30.0); Prothrombin Time 12.5 sec (9.0-12.0)
[2020-06-21 05:33] LABS: Albumin 3.7 g/dL (3.5-5.0); Calcium 8.9 mg/dL (8.4-10.2); Total Bilirubin 1.1 mg/dL (0.2-1.3); Total Protein 6.8 g/dL (6.3-8.2)
[2020-06-21 05:43] LABS: Potassium 5.2 mmol/L (3.5-5.1)
[2020-06-21 06:01] LABS: Appearance,Urine Clear (Clear); Bilirubin,Urine Negative (Negative); Blood,Urine Small (Negative); Color,Urine Light Yellow; Glucose,Urine (UA) Negative (Negative); Hyaline Casts,Urine 3 /lpf (0-2); Ketones,Urine Negative (Negative); Leukocyte Esterase,Urine Negative (Negative); Nitrite,Urine Negative (Negative); Protein,Urine 2+ (Negative); RBC,Urine 11 /hpf (0-5); Specific Gravity,Urine 1.008 (1.001-1.035); Squamous Epithelial Cell,Urine 2 /hpf (0-4); Urobilinogen,Urine <2.0 mg/dL (<2.0); WBC,Urine 2 /hpf (0-5)
--- NOTE | 2020-06-21 06:07 | XR ---
EXAMINATION TYPE: XR chest 1V portable DATE OF EXAM: 06/21/2020 COMPARISON: 04/11/2020 HISTORY: Altered mental status TECHNIQUE: Single view FINDINGS: There is mild coarsening of interstitial markings. There is no heart failure. Costophrenic angles are clear. There are sternal wires. There are no hilar masses. There are chest leads. IMPRESSION: Mild pulmonary fibrotic changes. There is clearing of the left pleural effusion compared to old exam. No obvious heart failure.
--- NOTE | 2020-06-21 06:11 | CT ---
EXAMINATION TYPE: CT brain wo con DATE OF EXAM: 06/21/2020 COMPARISON: 05/23/2020 HISTORY: headache CT DLP: 1062.4 mGycm Automated exposure control for dose reduction was used. There is cerebral atrophy. There is no mass effect nor midline shift. There is no sign of intracrania l hemorrhage. There is mild hypodensity around the occipital horns of the lateral ventricles. The robert varium is intact. The skull base is intact. IMPRESSION: Cerebral atrophy. Mild chronic small vessel ischemia in the occipital lobes. No change compared to ol d exam.
[2020-06-21] MEDS ORDERED: NALOXONE 0.4 MG/ML 1 ML VIAL IV PRN (06:14)
[2020-06-21] MEDS: ALPRAZolam 0.5 MG TAB PO SCH ×2 (07:39→20:09)
[2020-06-21] MEDS ORDERED: lisinopriL 20 MG TAB PO STA (10:21)
[2020-06-21] MEDS: METOPROLOL TARTRATE 50 MG TAB PO SCH ×2 (10:30→20:08)
[2020-06-21] MEDS: SPIRONOLACTONE 25 MG TAB PO SCH (10:30)
[2020-06-21] MEDS ORDERED: amLODIPine 5 MG TAB PO SCH ×2 (12:00→21:00)
[2020-06-21] MEDS: hydroCHLOROthiazide 25 MG TAB PO SCH (12:40)
[2020-06-21] MEDS ORDERED: ACETAMINOPHEN TAB 325 MG TAB PO PRN (14:30)
--- NOTE | 2020-06-21 14:35 | P.CRDCN ---
History of Present Illness Consult date: 06/21/20 History of present illness: This is a pleasant 89-year-old female with past medical history significant for paroxysmal atrial fibrillation, coronary artery disease with prior bypass surgery with a FRIEDMAN to the LAD, SVG to the RCA in 1995, hyperlipidemia, carotid artery disease status post endarterectomy, hypertension, diabetes, prior GI bleed, chronic vertigo. Patient has gone to [facility] on several occasions under hospice care, after discharges from the hospital, subsequent to those she goes home and is a longer on hospice. As is this occasion, she was living at her daughter's house, doing overall pretty well. According to the daughter she was getting her medications regularly. She started to complain of some pain in her bilateral eyes as well as severe headache. Her daughter checked her blood pressure which was noted to be significantly elevated and the patient was brought to the emergency room for further evaluation and treatment. Blood pressure on arrival here 238/82, heart rate in the 70s, respirations 18, afebrile. White blood cell count 10.5, hemoglobin 11.5, platelet count 253. Sodium 139, potassium 5.2, BUN 15, creatinine 1.1. Troponin 0.012. Patient was seen in consultation by Silvestre Mondragonvasc and hydrochlorothiazide were added to the patient's medication regime. Past Medical History Past Medical History: Atrial Fibrillation, Coronary Artery Disease (CAD), Chest Pain / Angina, Heart Failure, CVA/TIA, Diabetes Mellitus, Eye Disorder, GERD/Reflux, Hyperlipidemia, Hypertension, Myocardial Infarction (DC), Renal Disease, Syncope, Vascular Disorder Additional Past Medical History / Comment(s): Pt recently admitted to [facility] with L eye pain/optic ischemic neuropathy/TIA, EF 35% with mild aortic stenosis/mild mitral regurg. 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 Past Anesthesia/Blood Transfusion Reactions: No Reported Reaction Smoking Status: Former smoker - Past Family History Mother Family Medical History: No Reported History Additional Family Medical History / Comment(s): Mother at age 82 from old age. Father Family Medical History: No Reported History Additional Family Medical History / Comment(s): Father from old age and patient does not recall his age or any medical problems. Son(s) Family Medical History: Cancer Additional Family Medical History / Comment(s): Patient has one son with history of throat cancer in remission. Patient has one daughter with no major medical problems. Patient does not have any brothers or sisters. Medications and Allergies Home Medications Medication Instructions Recorded Confirmed Type Insulin Detemir [Levemir Flextouch] 14 units SQ HS 03/02/20 06/21/20 History Linagliptin [Tradjenta] 5 mg PO DAILY 04/08/20 06/21/20 History Metoprolol Tartrate [Lopressor] 50 mg PO BID 04/08/20 06/21/20 History Pantoprazole [Protonix] 40 mg PO HS 04/08/20 06/21/20 History Rivaroxaban [Xarelto] 15 mg PO HS 04/08/20 06/21/20 History polyethylene glycoL 3350 [Miralax] 17 gm PO DAILY 04/08/20 06/21/20 History Acetaminophen Tab [Tylenol] 650 mg PO Q6HR PRN tab 04/13/20 06/21/20 Rx Diclofenac 0.1% Ophth Soln 1 drop LEFT EYE QID 05/23/20 06/21/20 History [Voltaren 0.1% Ophth Soln] Ferrous Sulfate [Iron (65 MG 325 mg PO BID 05/23/20 06/21/20 History Elemental)] Vit C/E/Zn/Coppr/Lutein/Zeaxan 1 cap PO BID 05/23/20 06/21/20 History [Preservision Areds 2 Softgel] Aspirin 81 mg PO DAILY chew 05/25/20 06/21/20 Rx Atorvastatin [Lipitor] 80 mg PO HS #30 tab 05/25/20 06/21/20 Rx Hydrocodone/Acetaminophen [[place] 1 tab PO TID PRN #9 tab 05/25/20 06/21/20 Rx 5-325] Spironolactone [Aldactone] 12.5 mg PO DAILY #0 05/26/20 06/21/20 Rx ALPRAZolam [Xanax] 0.5 mg PO BID 06/21/20 06/21/20 History Ciprofloxacin HCl [Cipro] 250 mg PO Q12HR 06/21/20 06/21/20 History lisinopriL [Zestril] 20 mg PO HS 06/21/20 06/21/20 History Allergies Allergy/AdvReac Type Severity Reaction Status Date / Time zolpidem [From Ambien] AdvReac Hallucinati Verified 06/21/20 07:13 ons Physical Exam Vitals: Vital Signs Temp Pulse Pulse Resp BP BP Pulse Ox 06/21/20 13:30 74 16 174/67 100 06/21/20 11:47 200/64 06/21/20 10:15 73 199/65 06/21/20 09:07 67 16 182/63 97 06/21/20 09:00 68 16 197/66 97 06/21/20 08:30 64 16 193/62 98 06/21/20 08:00 99.0 F 65 73 16 179/64 100 06/21/20 07:42 98.1 F 63 18 165/59 97 06/21/20 07:30 65 16 184/136 95 06/21/20 07:22 64 16 184/136 98 06/21/20 07:15 63 16 198/62 97 06/21/20 06:36 166/55 06/21/20 06:09 68 18 148/53 96 06/21/20 05:46 160/54 06/21/20 05:41 70 18 163/67 99 06/21/20 05:33 172/55 06/21/20 05:30 180/55 06/21/20 05:20 98 F 65 18 222/76 97 06/21/20 05:07 248/93 06/21/20 04:44 98.4 F 71 17 238/82 98 Intake and Output 06/20/20 06/21/20 06/21/20 22:59 06:59 14:59 Intake Total 56.667 Balance 56.667 Intake: Intake, IV Titration 56.667 Amount niCARdipine 20 mg In 56.667 Sodium Chloride 0.9% 192 ml @ 5 MG/HR 50 mls/hr IV .Q4H [facility] Rx#:[id number] Other: Voiding Method Incontinent # Voids 1 Weight 68.039 kg 68.039 kg GENERAL EXAM: Alert, very pleasant 89-year-old white female, comfortable in no apparent distress. HEAD: Normocephalic/atraumatic. EYES: Normal reaction of pupils, equal size. Conjunctiva pink, sclera white. NOSE: Clear with pink turbinates. THROAT: No erythema or exudates. NECK: No masses, no JVD, no thyroid enlargement, no adenopathy. CHEST: No chest wall deformity. Symmetrical expansion. LUNGS: Slightly diminished breath sounds bilaterally CVS: Regular rate and rhythm, normal S1 and S2, no gallops, no murmurs, no rubs ABDOMEN: Soft, nontender. No hepatosplenomegaly, normal bowel sounds, no guarding or rigidity. EXTREMITIES: No clubbing, no edema, no cyanosis, 2+ pulses and upper and lower extremities. MUSCULOSKELETAL: Muscle strength and tone normal. SPINE: No scoliosis or deformity SKIN: No rashes CENTRAL NERVOUS SYSTEM: No focal deficits, tone is normal in all 4 extremities. PSYCHIATRIC: Alert and oriented -3. Appropriate affect. Intact judgment and insight. Results 06/21/20 05:10 06/21/20 05:10 Cardiac Enzymes 06/21/20 06/21/20 Range/Units 05:10 05:10 AST 43 H (14-36) U/L Troponin I 0.012 (0.000-0.034) ng/mL Coagulation 06/21/20 Range/Units 05:10 PT 12.5 H (9.0-12.0) sec APTT 30.3 H (22.0-30.0) sec CBC 06/21/20 Range/Units 05:10 WBC 10.5 (3.8-10.6) k/uL RBC 4.36 (3.80-5.40) m/uL Hgb 11.5 (11.4-16.0) gm/dL Hct 39.3 (34.0-46.0) % Plt Count 253 (150-450) k/uL Comprehensive Metabolic Panel 06/21/20 Range/Units 05:10 Sodium 139 (137-145) mmol/L Potassium 5.2 H (3.5-5.1) mmol/L Chloride 105 (98-107) mmol/L Carbon Dioxide 27 (22-30) mmol/L BUN 15 (7-17) mg/dL Creatinine 1.14 H (0.52-1.04) mg/dL Glucose 134 H (74-99) mg/dL Calcium 8.9 (8.4-10.2) mg/dL AST 43 H (14-36) U/L ALT 14 (4-34) U/L Alkaline Phosphatase 45 (38-126) U/L Total Protein 6.8 (6.3-8.2) g/dL Albumin 3.7 (3.5-5.0) g/dL Current Medications Generic Name Dose Route Start Last Admin Trade Name Freq PRN Reason Stop Dose Admin Alprazolam 0.5 mg 06/21/20 09:00 06/21/20 07:39 Alprazolam 0.5 Mg Tab PO 0.5 mg BID GENNY Administration Amlodipine Besylate 5 mg 06/21/20 12:00 06/21/20 12:40 Amlodipine 5 Mg Tab PO 5 mg DAILY GENNY Administration Atorvastatin Calcium 80 mg 06/21/20 21:00 Atorvastatin 80 Mg Tab PO HS GENNY Hydrochlorothiazide 25 mg 06/21/20 12:00 06/21/20 12:40 Hydrochlorothiazide 25 Mg Tab PO 25 mg DAILY GENNY Administration Sodium Chloride 1,000 mls @ 75 mls/hr 06/21/20 04:54 06/21/20 05:07 Saline 0.9% IV 06/21/20 18:13 75 mls/hr .[id number] STA Administration Lisinopril 20 mg 06/21/20 21:00 Lisinopril 20 Mg Tab PO HS GENNY Metoprolol Tartrate 50 mg 06/21/20 09:00 06/21/20 10:30 Metoprolol Tartrate 50 Mg Tab PO 50 mg BID GENNY Administration Naloxone HCl 0.2 mg 06/21/20 06:14 Naloxone 0.4 Mg/Ml 1 Ml Vial IV Q2M PRN Opioid Reversal Spironolactone 12.5 mg 06/21/20 09:00 06/21/20 10:30 Spironolactone 25 Mg Tab PO 12.5 mg DAILY GENNY Administration Intake and Output 06/20/20 06/21/20 06/21/20 22:59 06:59 14:59 Intake Total 56.667 Balance 56.667 Intake: Intake, IV Titration 56.667 Amount niCARdipine 20 mg In 56.667 Sodium Chloride 0.9% 192 ml @ 5 MG/HR 50 mls/hr IV .Q4H [facility] Rx#:[id number] Other: Voiding Method Incontinent # Voids 1 Weight 68.039 kg 68.039 kg Patient Weight 06/22/20 06:59 Weight 68.039 kg 06/21/20 05:10 06/21/20 05:10 EKG Interpretations (text) EKG shows a normal sinus rhythm with no acute changes. Assessment and Plan Plan: Assessment and plan #1 hypertensive urgency #2 symptoms of generalized weakness #3 coronary artery disease with prior bypass surgery #4 diabetes #5 hypertension #6 hyperlipidemia #7 paroxysmal atrial fibrillation #8 anemia #9 chronic vertigo #10 carotid artery disease status post carotid endarterectomy #11 chronic systolic congestive heart failure Plan We will add Norvasc and hydrochlorothiazide to the patient's medication regime to optimize blood pressure control. Further recommendations to follow. DNP note has been reviewed, I agree with a documented findings and plan of care. Patient was seen and examined.
--- NOTE | 2020-06-21 16:07 | P.CNNES ---
History of Present Illness Consult date: 06/21/20 Requesting physician: Katie Kong Reason for Consult: altered mental status History of Present Illness: This is an 89-year-old right-handed woman with medical history of right carotid artery occlusion status post hysterectomy 2015, coronary artery disease status post CABG in 1995, diabetes type 2, atrial fibrillation on Xarelto, hypertension, hyperlipidemia, chronic vertigo, AVM of the cecum status post ago plasma in 2018 who presented to emergency department on 06/21/2020 at around 04:33am altered mental status as well as headache. Per the ED note and mentioned that that she couldn't provide any of the history when that she arrived at. She was also complaining of vision change. Upon arrival her initial vitals were blood pressure of 238/82, heart rate of 71. Upon seeing the patient at bedside that she stated that the she is here in the hospital because of pain on left right upper quadrant that she was having for couple months. The pain is constant. Currently she stated that it's 2 on a 10 and she is currently just a pain. Then she would have photophobia with this. But denies any phonophobia, or being in a dark place at. She denies any nausea any vomiting associated with this. He denies any pain the with movement of the eyes. She denies the pain that radiate anywhere else. She denies any jaw pain associated with this. She denies any blurry vision. She had the pain on previous admission beginning of May 2020. Upon asking her if she followed up with Dr. Laurent the grid molder she could not tell me whether she did or not. In the ED the patient was started on the labetalol as well as the Nicardipine. Nicardipine was stopped since the patient's a blood pressure was dropping rapidly. Patient had CT of the head which was reported as cerebral atrophy. Mild chronic small vessel ischemic and occipital lobes. No change compared to old exam. I personally reviewed this and I don't see any acute ischemia, hemorrhage or any encephalomalacia. EKG was reported as sinus rhythm with premature atrial complexes. Ventricle rate of 71. Nonspecific ST abnormality. I personally saw the patient on 05/24/2020 for possible transient ischemic attack of the difficulty finding her words, left eye pain and headache. I felt that she had symptomatic left ICA since carotid duplex showed more than 70% stenosis of the left ICA. Patient was on Xarelto so I recommended adding aspirin in addition. I also increased the Lipitor from 10 [address] Fagan was consulted for the ICA stenosis. Patient also had an EEG on 05/24/2020 for confusion and it was reported as mild background slowing of onset the radiology. There is no focal slowing, interictal or seizure activity during the study. Also on this admission she had uncontrolled hypertension. On previous hospital visit the she said that she cannot get MRI because she is claustrophobic and did not want as an inpatient. He was having left eye pain and that she was seen Dr. Laurent was told to follow- up with the Dr. Laurent was an grid molder. Review of Systems Review of system: The 12 point system was reviewed and apparent positive and negative per HPI. Past Medical History Past Medical History: Atrial Fibrillation, Coronary Artery Disease (CAD), Chest Pain / Angina, Heart Failure, CVA/TIA, Diabetes Mellitus, Eye Disorder, GERD/Reflux, Hyperlipidemia, Hypertension, Myocardial Infarction (CA), Renal Disease, Syncope, Vascular Disorder Additional Past Medical History / Comment(s): Pt recently admitted to [facility] with L eye pain/optic ischemic neuropathy/TIA, EF 35% with mild aortic stenosis/mild mitral regurg. 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 Past Anesthesia/Blood Transfusion Reactions: No Reported Reaction Smoking Status: Former smoker - Past Family History Mother Family Medical History: No Reported History Additional Family Medical History / Comment(s): Mother at age 82 from old age. Father Family Medical History: No Reported History Additional Family Medical History / Comment(s): Father from old age and patient does not recall his age or any medical problems. Son(s) Family Medical History: Cancer Additional Family Medical History / Comment(s): Patient has one son with history of throat cancer in remission. Patient has one daughter with no major medical problems. Patient does not have any brothers or sisters. Medications and Allergies Home Medications Medication Instructions Recorded Confirmed Type Insulin Detemir [Levemir Flextouch] 14 units SQ HS 03/02/20 06/21/20 History Linagliptin [Tradjenta] 5 mg PO DAILY 04/08/20 06/21/20 History Metoprolol Tartrate [Lopressor] 50 mg PO BID 04/08/20 06/21/20 History Pantoprazole [Protonix] 40 mg PO HS 04/08/20 06/21/20 History Rivaroxaban [Xarelto] 15 mg PO HS 04/08/20 06/21/20 History polyethylene glycoL 3350 [Miralax] 17 gm PO DAILY 04/08/20 06/21/20 History Acetaminophen Tab [Tylenol] 650 mg PO Q6HR PRN tab 04/13/20 06/21/20 Rx Diclofenac 0.1% Ophth Soln 1 drop LEFT EYE QID 05/23/20 06/21/20 History [Voltaren 0.1% Ophth Soln] Ferrous Sulfate [Iron (65 MG 325 mg PO BID 05/23/20 06/21/20 History Elemental)] Vit C/E/Zn/Coppr/Lutein/Zeaxan 1 cap PO BID 05/23/20 06/21/20 History [Preservision Areds 2 Softgel] Aspirin 81 mg PO DAILY chew 05/25/20 06/21/20 Rx Atorvastatin [Lipitor] 80 mg PO HS #30 tab 05/25/20 06/21/20 Rx Hydrocodone/Acetaminophen [[place] 1 tab PO TID PRN #9 tab 05/25/20 06/21/20 Rx 5-325] Spironolactone [Aldactone] 12.5 mg PO DAILY #0 05/26/20 06/21/20 Rx ALPRAZolam [Xanax] 0.5 mg PO BID 06/21/20 06/21/20 History Ciprofloxacin HCl [Cipro] 250 mg PO Q12HR 06/21/20 06/21/20 History lisinopriL [Zestril] 20 mg PO HS 06/21/20 06/21/20 History Allergies Allergy/AdvReac Type Severity Reaction Status Date / Time zolpidem [From Ambien] AdvReac Hallucinati Verified 06/21/20 07:13 ons Physical Examination - Vital Signs Vital Signs: Vital Signs Temp Pulse Pulse Resp BP BP Pulse Ox 06/21/20 13:30 74 16 174/67 100 06/21/20 11:47 200/64 06/21/20 10:15 73 199/65 06/21/20 09:07 67 16 182/63 97 06/21/20 09:00 68 16 197/66 97 06/21/20 08:30 64 16 193/62 98 06/21/20 08:00 99.0 F 65 73 16 179/64 100 06/21/20 07:42 98.1 F 63 18 165/59 97 06/21/20 07:30 65 16 184/136 95 06/21/20 07:22 64 16 184/136 98 06/21/20 07:15 63 16 198/62 97 06/21/20 06:36 166/55 06/21/20 06:09 68 18 148/53 96 06/21/20 05:46 160/54 06/21/20 05:41 70 18 163/67 99 06/21/20 05:33 172/55 06/21/20 05:30 180/55 06/21/20 05:20 98 F 65 18 222/76 97 06/21/20 05:07 248/93 06/21/20 04:44 98.4 F 71 17 238/82 98 Intake and Output 06/21/20 06/21/20 06/21/20 06:59 14:59 22:59 Intake Total 56.667 Balance 56.667 Intake: Intake, IV Titration 56.667 Amount niCARdipine 20 mg In 56.667 Sodium Chloride 0.9% 192 ml @ 5 MG/HR 50 mls/hr IV .Q4H [facility] Rx#:[id number] Other: Voiding Method Incontinent # Voids 1 Weight 68.039 kg 68.039 kg GENERAL: The patient is lying in bed and is not in acute distress. CHEST: The heart rate is regular rate rhythm. No murmurs to auscultation. No carotid bruit bilaterally. LUNG: Clear to auscultation bilaterally no wheezing noted throughout. Not labored breathing. ABDOMEN/GI: Bowel sounds present in all 4 quadrants. No tenderness to palpation throughout. NEUROLOGICAL: Higher mental function: The patient is awake, alert, oriented to self, place and time. Patient is following commands. No aphasia and no neglect. Cranial nerves: The pupils are round, equal (3mm bilaterally) and reactive to light and accommodation. Visual brar are full to confrontation throughout. There seems to be some pain to pressure on the left eye of right upper quadrant. Extraocular movement is intact no nystagmus is noted. Facial sensation is normal to touch throughout. The facial strength is normal throughout. Hearing is normal bilaterally to hand rub. Tongue is midline and moved [id number] without any difficulty. No dysarthria is noted. Shoulder shrug is normal bilaterally. Motor:Gait is defered. The strength is 5 over 5 throughout except at could not assess the right lower extremity since the patient refused because of chronic pain after cardiac bypass but was able to lift the right upper extremity above gravity without any drift. Normal tone and bulk. Cerebellum: Normal finger to nose bilaterally. Sensation: Sensation is normal to touch throughout. Reflexes (right/left): 2+ throughout except right lower extremity unable to assess since she refused because of her chronic pain. Plantars are downgoing bilaterally. Results Prednisone of 1.14. Potassium is 5.2. AST of 43 ALTs of 14. Coagulation study: PT of 12.5, INR 1.2, PTT of 30.3. UA was negative for urinary tract infection. - Laboratory Findings CBC and BMP: 06/21/20 05:10 06/21/20 05:10 Abnormal Lab Findings: Abnormal Labs 06/21/20 06/21/20 06/21/20 04:49 05:10 05:10 MCHC 29.4 L RDW 20.2 H PT 12.5 H INR 1.2 H APTT 30.3 H Potassium Creatinine Glucose POC Glucose (mg/dL) 130 H AST Urine Protein Urine Blood Urine RBC Hyaline Casts 06/21/20 06/21/20 05:10 05:10 MCHC RDW PT INR APTT Potassium 5.2 H Creatinine 1.14 H Glucose 134 H POC Glucose (mg/dL) AST 43 H Urine Protein 2+ H Urine Blood Small H Urine RBC 11 H Hyaline Casts 3 H Assessment and Plan Assessment: Toxic metabolic encephalopathy (from uncontrolled hypertension)---improved Chronic pain on the left eye over the upper nasal quadrant. Transient ischemic attack (word finding difficulties) from symptomatic left ICA Symptomatic left ICA stenosis Uncontrolled hypertension Acute kidney injury History of right carotid endarterectomy in 2016 Atrial fibrillation next hyperlipidemia Diabetes type 2 History of coronary artery disease status post CABG Plan: Continue aspirin 81 mg and Xarelto 15 mg daily Continue Lipitor 80 mg daily for secondary stroke prophylaxis Regarding her chronic left eye pain over the upper and nasal quadrant recommend an ophthalmology consultation. Patient refused MRI on last admission since she is claustrophobic. Please avoid rapid drop of the blood pressure to avoid any strokes. Please avoid more than 15% drop in 24 hours. We'll defer the management of uncontrolled hypertension to the primary team Regarding the patient and acute kidney injury will also defer that to the primary team I'll attempt to contact the daughter to find out more information about the what transpired since her discharge from the hospital. Also whether she followed up with grid molder or not. Thank you for the consult. Casey Salas M.D. Neuro-hospitalist Time with Patient: Greater than 30
--- NOTE | 2020-06-21 16:58 | P.HPIM ---
History of Present Illness H&P Date: 06/21/20 Chief Complaint: Hypertensive encephalopathy. 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, patient was recently discharged from [facility] after she was admitted for physical therapy rehabilitation and she was recently treated for what appears to be urinary tract infection she has been getting Cipro floxacillin 500 mg orally twice every day she is to have 3 more days to finish, patient was doing fine at home with her daughter when she developed to have a significant pain in both eyes associated with severe headache her blood pressure was extremely elevated 238/88, patient was brought into the emergency department for evaluation had a computed tomography scan of the brain did not show any evidence of acute of normalities, chest x-ray did not show any evidence of acute of normalities, patient was given labetalol and she was started on metoprolol 50 mg orally twice every day, lisinopril 20 mg orally once every day, and added amlodipine 5 minute gram once every day along with hydrochlorothiazide 25 mg orally once every day, patient was admitted to the hospital for evaluation by cardiology as well as by neurology as the patient continues to have those episode of bilateral eye pain followed by severe headache associated with hypertensive urgency. Review of Systems Constitutional: Reports chronic headaches, Reports fatigue, Reports malaise, Reports weakness, Denies anorexia, Denies weight gain, Denies weight loss Eyes: bilateral blurred vision, bilateral decreased vision, bilateral pain Ears, nose, mouth and throat: Denies dysphagia, Denies neck lump, Denies sore throat Cardiovascular: Reports decreased exercise tolerance, Reports dyspnea on exe rtion, Reports shortness of breath, Denies chest pain, Denies leg edema, Denies lightheadedness, Denies rapid heart beat, Denies syncope Respiratory: Denies congestion, Denies cough, Denies cough with sputum, Denies home oxygen, Denies sleep apnea, Denies snoring, Denies wheezing Gastrointestinal: Reports loss of appetite, Denies abdominal pain, Denies bloating, Denies BRBPR, Denies heartburn, Denies melena, Denies nausea, Denies vomiting Genitourinary: Denies dysuria, Denies nocturia Menstruation: Reports postmenopausal Musculoskeletal: Denies myalgias Musculoskeletal: absent: ankle pain, ankle stiffness, ankle swelling, elbow pain, elbow stiffness, elbow swelling, foot pain, foot stiffness, foot swelling, hand pain, hand stiffness, hand swelling, hip pain, hip stiffness, hip swelling, knee pain, knee stiffness, knee swelling, shoulder pain, shoulder stiffness, shoulder swelling, wrist pain, wrist stiffness, wrist swelling Integumentary: Denies pruritus, Denies rash Neurological: Reports confusion, Reports gait dysfunction, Reports numbness, Reports weakness Psychiatric: Reports anxiety, Reports depression, Denies sadness/tearfulness, Denies sleep disturbances, Denies suicidal ideation Endocrine: Denies fatigue, Denies weight change Past Medical History Past Medical History: Atrial Fibrillation, Coronary Artery Disease (CAD), Chest Pain / Angina, Heart Failure, CVA/TIA, Diabetes Mellitus, Eye Disorder, GERD/Reflux, Hyperlipidemia, Hypertension, Myocardial Infarction ([place]), Renal Disease, Syncope, Vascular Disorder Additional Past Medical History / Comment(s): Pt recently admitted to [facility] with L eye pain/optic ischemic neuropathy/TIA, EF 35% with mild aortic stenosis/mild mitral regurg. Other hx: IDDM type II, CKD stage II, TIAs, vertigo, weakness, gait disturbance/falls, bilateral hip and gluteal pain, paroxysmal A fib, anemia, L caratid disease 70%, hx of AVM of the cecum with cox plasma, anemia, macular degeneration bilaterally, L eye pain/optic ischemia, poor vision Last Myocardial Infarction Date:: 2017 History of Any Multi-Drug Resistant Organisms: None Reported Past Surgical History: Adenoidectomy, Coronary Bypass/CABG, Heart Catheterization, Orthopedic Surgery, Tonsillectomy Additional Past Surgical History / Comment(s): EGD, colonoscopies, 3 vessel CABG 1995 in [place], R carotid endartectomy 2015, ORIF L ankle d/t fracture. Past Anesthesia/Blood Transfusion Reactions: No Reported Reaction Smoking Status: Former smoker - Past Family History Mother Family Medical History: No Reported History Additional Family Medical History / Comment(s): Mother at age 82 from old age. Father Family Medical History: No Reported History Additional Family Medical History / Comment(s): Father from old age and patient does not recall his age or any medical problems. Son(s) Family Medical History: Cancer Additional Family Medical History / Comment(s): Patient has one son with history of throat cancer in remission. Patient has one daughter with no major medical problems. Patient does not have any brothers or sisters. Medications and Allergies Home Medications Medication Instructions Recorded Confirmed Type Insulin Detemir [Levemir Flextouch] 14 units SQ HS 03/02/20 06/21/20 History Linagliptin [Tradjenta] 5 mg PO DAILY 04/08/20 06/21/20 History Metoprolol Tartrate [Lopressor] 50 mg PO BID 04/08/20 06/21/20 History Pantoprazole [Protonix] 40 mg PO HS 04/08/20 06/21/20 History Rivaroxaban [Xarelto] 15 mg PO HS 04/08/20 06/21/20 History polyethylene glycoL 3350 [Miralax] 17 gm PO DAILY 04/08/20 06/21/20 History Acetaminophen Tab [Tylenol] 650 mg PO Q6HR PRN tab 04/13/20 06/21/20 Rx Diclofenac 0.1% Ophth Soln 1 drop LEFT EYE QID 05/23/20 06/21/20 History [Voltaren 0.1% Ophth Soln] Ferrous Sulfate [Iron (65 MG 325 mg PO BID 05/23/20 06/21/20 History Elemental)] Vit C/E/Zn/Coppr/Lutein/Zeaxan 1 cap PO BID 05/23/20 06/21/20 History [Preservision Areds 2 Softgel] Aspirin 81 mg PO DAILY chew 05/25/20 06/21/20 Rx Atorvastatin [Lipitor] 80 mg PO HS #30 tab 05/25/20 06/21/20 Rx Hydrocodone/Acetaminophen [[place] 1 tab PO TID PRN #9 tab 05/25/20 06/21/20 Rx 5-325] Spironolactone [Aldactone] 12.5 mg PO DAILY #0 05/26/20 06/21/20 Rx ALPRAZolam [Xanax] 0.5 mg PO BID 06/21/20 06/21/20 History Ciprofloxacin HCl [Cipro] 250 mg PO Q12HR 06/21/20 06/21/20 History lisinopriL [Zestril] 20 mg PO HS 06/21/20 06/21/20 History Allergies Allergy/AdvReac Type Severity Reaction Status Date / Time zolpidem [From Ambien] AdvReac Hallucinati Verified 06/21/20 07:13 ons Physical Exam Vitals: Vital Signs Temp Pulse Pulse Resp BP BP Pulse Ox 06/21/20 13:30 74 16 174/67 100 06/21/20 11:47 200/64 06/21/20 10:15 73 199/65 06/21/20 09:07 67 16 182/63 97 06/21/20 09:00 68 16 197/66 97 06/21/20 08:30 64 16 193/62 98 06/21/20 08:00 99.0 F 65 73 16 179/64 100 06/21/20 07:42 98.1 F 63 18 165/59 97 06/21/20 07:30 65 16 184/136 95 06/21/20 07:22 64 16 184/136 98 06/21/20 07:15 63 16 198/62 97 06/21/20 06:36 166/55 06/21/20 06:09 68 18 148/53 96 06/21/20 05:46 160/54 06/21/20 05:41 70 18 163/67 99 06/21/20 05:33 172/55 06/21/20 05:30 180/55 06/21/20 05:20 98 F 65 18 222/76 97 06/21/20 05:07 248/93 06/21/20 04:44 98.4 F 71 17 238/82 98 Intake and Output 06/20/20 06/21/20 06/21/20 22:59 06:59 14:59 Intake Total 56.667 Balance 56.667 Intake: Intake, IV Titration 56.667 Amount niCARdipine 20 mg In 56.667 Sodium Chloride 0.9% 192 ml @ 5 MG/HR 50 mls/hr IV .Q4H [facility] Rx#:[id number] Other: Voiding Method Incontinent # Voids 1 Weight 68.039 kg 68.039 kg Physical examination: HEENT: Head is atraumatic, normocephalic, pupils were equal round reactive to light and accommodations, extraocular muscle movement were intact. Oral mucous membranes are dry patient sounded to the upper and lower lip. Neck: Supple, no JVP, decreased carotid upstroke bilaterally. Chest: Decreased breath sounds at the bases, there is no chest wall tenderness no intercostal retractions there is no expiratory wheezes. Heart: First heart sound is depressed, second heart sounds normal, there is systolic murmur 2/6 located at the right second intercostal space related to the base of the neck per Abdomen: Soft, nontender, nondistended, positive bowel sounds. Extremities: No pedal edema bilaterally, dorsalis pedis palpable bilaterally. No calf tenderness. Neurologic examination: Patient is awake and alert and oriented 3. No focal neuro deficits. Cranial nerves III-12 appear grossly intact. Results CBC & Chem 7: 06/21/20 05:10 06/21/20 05:10 Labs: Abnormal Lab Results - Last 24 Hours (Table) 06/21/20 06/21/20 06/21/20 Range/Units 04:49 05:10 05:10 MCHC 29.4 L (31.0-37.0) g/dL RDW 20.2 H (11.5-15.5) % PT 12.5 H (9.0-12.0) sec INR 1.2 H (<1.2) APTT 30.3 H (22.0-30.0) sec Potassium (3.5-5.1) mmol/L Creatinine (0.52-1.04) mg/dL Glucose (74-99) mg/dL POC Glucose (mg/dL) 130 H (75-99) mg/dL AST (14-36) U/L Urine Protein (Negative) Urine Blood (Negative) Urine RBC (0-5) /hpf Hyaline Casts (0-2) /lpf 06/21/20 06/21/20 Range/Units 05:10 05:10 MCHC (31.0-37.0) g/dL RDW (11.5-15.5) % PT (9.0-12.0) sec INR (<1.2) APTT (22.0-30.0) sec Potassium 5.2 H (3.5-5.1) mmol/L Creatinine 1.14 H (0.52-1.04) mg/dL Glucose 134 H (74-99) mg/dL POC Glucose (mg/dL) (75-99) mg/dL AST 43 H (14-36) U/L Urine Protein 2+ H (Negative) Urine Blood Small H (Negative) Urine RBC 11 H (0-5) /hpf Hyaline Casts 3 H (0-2) /lpf Thrombosis Risk Factor Assmnt - DVT/VTE Prophylaxis DVT/VTE Prophylaxis: Pharmacologic Prophylaxis ordered, Mechanical Prophylaxis ordered - Choose All That Apply Any of the Below Risk Factors Present?: Yes Other Risk Factors: Yes Each Risk Factor Represents 3 Points: Age 75 years or older Other congenital or acquired thrombophilia - If yes, enter type in comment: No Thrombosis Risk Factor Assessment Total Risk Factor Score: 3 Thrombosis Risk Factor Assessment Level: Moderate Risk Assessment and Plan Assessment: Assessment and plan: 1. Hypertensive urgency associated with severe headache and hypertensive encephalopathy. Computed tomography scan of the brain did not show any evidence of acute infarct or bleed, she was given a dose of labetalol in the ER currently on metoprolol 50 mg orally twice every day lisinopril 20 mg orally once every day this will be increased to twice every day continue amlodipine 5 mg once e very day continue with hydrochlorothiazide 25 mg orally once every day monitor the patient blood pressure very closely, cardiology consultation per 2. 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 Patient was described diclofenac eyedrops 0.1% apply 4 times every day, patient also was seen ophthalmology, he was recommended to monitor the patient very closely, along with a recent diagnosis of adult macular degeneration for which she was started on PreserVision. 3. Paroxysmal atrial fibrillation. We will continue patient on metoprolol 50 mg orally twice every day as well as Xarelto 15 mg orally once every day. 4. History of coronary artery disease status post three-vessel CABG in 1995. Continue patient on metoprolol 50 mg orally twice every day as well as Lipitor 10 mg orally once every day. 5. Carotid artery disease status post carotid endarterectomy. Stable patient has had a CTA of the carotid arteries in the past. 6. Diabetes mellitus type 2, insulin requiring. Continue Levemir 14 units at bedtime and NovoLog scale before meals and at bedtime, Tradjenta 5 mg daily. Continue Accu-Chek before each meal and at bedtime along with a sliding scale insulin. 7. Hypertension, hypertensive cardiovascular disease with accelerated hyperte nsion. Continue metoprolol 50 mg orally twice every day, lisinopril 20 mg orally twice every day at amlodipine 5 mg orally once every day along with HIDA for thiazide 25 mg orally once every day. 8. Hyperlipidemia. Continue Lipitor 10 mg daily. 9. Chronic vertigo. Stable. 10. Gastroesophageal reflux disease. Continue Protonix 40 mg daily. 11. DVT prophylaxis. Currently on Xarelto 15 mg orally once every day. 12. GI prophylaxis. Continue patient on Protonix 40 mg orally once every day. 13. Admitted to inpatient. Estimate a length of stay 2 midnights per 14. Patient is no code.
[2020-06-21] MEDS: DICLOFENAC 0.1% OPHTH SOLN 2.5 ML BTL LEFT EYE SCH (18:28)
[2020-06-21] MEDS: ATORVASTATIN 80 MG TAB PO SCH (20:09)
[2020-06-21] MEDS: CIPROFLOXACIN HCL 250 MG TAB PO SCH (20:09)
[2020-06-21] MEDS: RIVAROXABAN 15 MG TAB PO SCH (20:09)
[2020-06-21] MEDS: HYDROcodone/APAP 5-325MG 1 EACH TAB PO PRN (20:09)
[2020-06-21] MEDS: PANTOPRAZOLE 40 MG TABLET PO SCH (20:09)
[2020-06-21] MEDS: FERROUS SULFATE 325 MG TAB PO SCH (20:09)
[2020-06-21] MEDS: VIT A,C & E-LUTEIN-MINERALS 1 EACH TAB PO SCH (20:11)
[2020-06-21] MEDS ORDERED: lisinopriL 20 MG TAB PO SCH (21:00)
[2020-06-21 21:43] LABS: Glucose,Whole Blood 105 mg/dL (75-99)
[2020-06-21] MEDS: INSULIN DETEMIR (LEVEMIR) 100 UNIT/ML SYR SQ SCH (21:45)
[2020-06-22] MEDS: DICLOFENAC 0.1% OPHTH SOLN 2.5 ML BTL LEFT EYE SCH ×3 (01:05→21:07)
[2020-06-22] MEDS ORDERED: hydrALAZINE HCL 20 MG/ML 1 ML VIAL IVP PRN (03:54)
[2020-06-22 06:17] LABS: Glucose,Whole Blood 165 mg/dL (75-99)
[2020-06-22] MEDS: CIPROFLOXACIN HCL 250 MG TAB PO SCH (09:00)
[2020-06-22] MEDS: SPIRONOLACTONE 25 MG TAB PO SCH (09:00)
[2020-06-22] MEDS: ALPRAZolam 0.5 MG TAB PO SCH ×2 (09:00→21:07)
[2020-06-22] MEDS: polyethylene glycoL 3350 17 GM POWD.PACK PO SCH (09:00)
[2020-06-22] MEDS: ASPIRIN 81 MG PO SCH (09:00)
[2020-06-22] MEDS: amLODIPine 5 MG TAB PO SCH (09:00)
[2020-06-22] MEDS: LINAGLIPTIN 5 MG TABLET PO SCH (09:00)
[2020-06-22] MEDS: hydroCHLOROthiazide 25 MG TAB PO SCH (09:00)
[2020-06-22] MEDS: METOPROLOL TARTRATE 50 MG TAB PO SCH ×2 (09:00→21:07)
[2020-06-22] MEDS: lisinopriL 20 MG TAB PO SCH ×2 (09:00→21:07)
[2020-06-22] MEDS: FERROUS SULFATE 325 MG TAB PO SCH ×2 (09:00→21:07)
[2020-06-22] MEDS: VIT A,C & E-LUTEIN-MINERALS 1 EACH TAB PO SCH ×2 (09:01→21:07)
[2020-06-22 10:20] LABS: Anisocytosis Moderate; Basophils % (A) 0 %; Eosinophils # (A) 0.1 k/uL (0-0.7); Eosinophils % (A) 0 %; HCT 39.3 % (34.0-46.0); HGB 11.8 gm/dL (11.4-16.0); Hypochromasia Marked; Lymphocytes % (A) 8 %; MCH 27.1 pg (25.0-35.0); MCV 90.4 fL (80.0-100.0); Mean Platelet Volume 9.2; Microcytosis Slight; Monocytes # (A) 0.3 k/uL (0-1.0); Monocytes % (A) 3 %; Neutrophils # (A) 10.3 k/uL (1.3-7.7); Neutrophils % (A) 88 %; Platelet Count 273 k/uL (150-450); RBC 4.34 m/uL (3.80-5.40); WBC 11.7 k/uL (3.8-10.6)
[2020-06-22 10:28] LABS: Albumin 3.6 g/dL (3.5-5.0); Calcium 8.7 mg/dL (8.4-10.2); Total Bilirubin 1.5 mg/dL (0.2-1.3); Total Protein 6.5 g/dL (6.3-8.2)
[2020-06-22 11:41] LABS: Glucose,Whole Blood 131 mg/dL (75-99)
--- NOTE | 2020-06-22 11:57 | P.PN ---
Subjective Progress Note Date: 06/22/20 This is a pleasant 89-year-old female with past medical history significant for paroxysmal atrial fibrillation, coronary artery disease with prior bypass surgery with a FRIEDMAN to the LAD, SVG to the RCA in 1995, hyperlipidemia, carotid artery disease status post endarterectomy, hypertension, diabetes, prior GI bleed, chronic vertigo. Patient has gone to [facility] on several occasions under hospice care, after discharges from the hospital, subsequent to those she goes home and is a longer on hospice. As is this occasion, she was living at her daughter's house, doing overall pretty well. According to the daughter she was getting her medications regularly. She started to complain of some pain in her bilateral eyes as well as severe headache. Her daughter checked her blood pressure which was noted to be significantly elevated and the patient was brought to the emergency room for further evaluation and treatment. Blood pressure on arrival here 238/82, heart rate in the 70s, respirations 18, afebrile. White blood cell count 10.5, hemoglobin 11.5, platelet count 253. Sodium 139, potassium 5.2, BUN 15, creatinine 1.1. Troponin 0.012. Patient was seen in consultation by Gisel Mondragon and hydrochlorothiazide were added to the patient's medication regime. 06/22/2020 Patient was seen and examined this morning, still complaining of some pain and behind her eyes, overall feeling better. Her blood pressure is under much better control today. Blood pressure 146/60 with a heart rate in the 70s, 95% on room air. White blood cell count 11.7, hemoglobin 11.8, platelet count 273. Sodium 137, potassium 5.0, BUN 17, creatinine 1.2. Objective - Vital Signs Vital signs: Vital Signs Temp 98.0 F 06/22/20 11:27 Pulse 79 06/22/20 11:27 Resp 16 06/22/20 11:27 BP 146/60 06/22/20 11:27 Pulse Ox 95 06/22/20 11:27 Intake & Output 06/21/20 06/22/20 06/22/20 18:59 06:59 18:59 Intake Total 600 Output Total 400 Balance 600 -400 Weight 68.039 kg Intake: IV 600 Sodium Chloride 0.9% 1, 600 000 ml @ 75 mls/hr IV . [id number] [facility] Rx#:[id number] Output: Urine 400 Other: Voiding Method Incontinent Bedpan Bedpan Incontinent Incontinent # Voids 1 # Bowel Movements 1 - Exam GENERAL EXAM: Alert, very pleasant 89-year-old white female, comfortable in no apparent distress. HEAD: Normocephalic/atraumatic. EYES: Normal reaction of pupils, equal size. Conjunctiva pink, sclera white. NOSE: Clear with pink turbinates. THROAT: No erythema or exudates. NECK: No masses, no JVD, no thyroid enlargement, no adenopathy. CHEST: No chest wall deformity. Symmetrical expansion. LUNGS: Slightly diminished breath sounds bilaterally CVS: Regular rate and rhythm, normal S1 and S2, no gallops, no murmurs, no rubs ABDOMEN: Soft, nontender. No hepatosplenomegaly, normal bowel sounds, no guarding or rigidity. EXTREMITIES: No clubbing, no edema, no cyanosis, 2+ pulses and upper and lower extremities. MUSCULOSKELETAL: Muscle strength and tone normal. SPINE: No scoliosis or deformity SKIN: No rashes CENTRAL NERVOUS SYSTEM: No focal deficits, tone is normal in all 4 extremities. PSYCHIATRIC: Alert and oriented -3. Appropriate affect. Intact judgment and insight. - Labs CBC & Chem 7: 06/22/20 09:47 06/22/20 09:47 Labs: Abnormal Lab Results - Last 24 Hours (Table) 06/21/20 06/22/20 06/22/20 Range/Units 21:34 06:12 09:47 WBC (3.8-10.6) k/uL MCHC (31.0-37.0) g/dL RDW (11.5-15.5) % Neutrophils # (1.3-7.7) k/uL Creatinine 1.26 H (0.52-1.04) mg/dL Glucose 148 H (74-99) mg/dL POC Glucose (mg/dL) 105 H 165 H (75-99) mg/dL Total Bilirubin 1.5 H (0.2-1.3) mg/dL 06/22/20 06/22/20 Range/Units 09:47 11:40 WBC 11.7 H (3.8-10.6) k/uL MCHC 30.0 L (31.0-37.0) g/dL RDW 20.0 H (11.5-15.5) % Neutrophils # 10.3 H (1.3-7.7) k/uL Creatinine (0.52-1.04) mg/dL Glucose (74-99) mg/dL POC Glucose (mg/dL) 131 H (75-99) mg/dL Total Bilirubin (0.2-1.3) mg/dL Assessment and Plan Plan: Assessment and plan #1 hypertensive urgency #2 symptoms of generalized weakness #3 coronary artery disease with prior bypass surgery #4 diabetes #5 hypertension #6 hyperlipidemia #7 paroxysmal atrial fibrillation #8 anemia #9 chronic vertigo #10 carotid artery disease status post carotid endarterectomy #11 chronic systolic congestive heart failure Plan From cardiology's perspective, we'll continue the patient on current antihypertensive medications as initiated yesterday. If the blood pressure remains stable, possibly discharge home tomorrow DNP note has been reviewed, I agree with a documented findings and plan of care. Patient was seen and examined.
--- NOTE | 2020-06-22 12:45 | P.PN ---
Subjective Progress Note Date: 06/22/20 The patient was seen at bedside and she said that she's not doing well. She said that she continues to have pain on her left eye on the upper nasal quadrants. She said the pain is like about 2-4/10 it's constant. She denies any radiation the pain. She denies any blurry vision associated with this. Den ies any pain with moving eyes. Has some mild photophobia but denies phonophobia. Denies any nausea vomiting. Denies any weakness numbness. Denies any slurring the speech. Objective - Vital Signs Vital signs: Vital Signs Temp 98.0 F 06/22/20 11:27 Pulse 79 06/22/20 11:27 Resp 16 06/22/20 11:27 BP 146/60 06/22/20 11:27 Pulse Ox 95 06/22/20 11:27 Intake & Output 06/21/20 06/22/20 06/22/20 18:59 06:59 18:59 Intake Total 600 Output Total 400 Balance 600 -400 Weight 68.039 kg Intake: IV 600 Sodium Chloride 0.9% 1, 600 000 ml @ 75 mls/hr IV . [id number] [facility] Rx#:[id number] Output: Urine 400 Other: Voiding Method Incontinent Bedpan Bedpan Incontinent Incontinent # Voids 1 # Bowel Movements 1 - Exam GENERAL: The patient is lying in bed and is not in acute distress. CHEST: The heart rate is regular rate rhythm. No murmurs to auscultation. LUNG: Clear to auscultation bilaterally no wheezing noted throughout. Not labored breathing. ABDOMEN/GI: Bowel sounds present in all 4 quadrants. No tenderness to palpation throughout. NEUROLOGICAL: Higher mental function: The patient is awake, alert, oriented to self, place and time. Patient is following commands. No aphasia and no neglect. Cranial nerves: The pupils are round, equal (3mm bilaterally) and reactive to light and accommodation. Visual brar are full to confrontation throughout. There seems to be some pain to pressure on the left eye of right upper quadrant. Extraocular movement is intact no nystagmus is noted. Facial sensation is normal to touch throughout. The facial strength is normal throughout. Hearing is normal bilaterally to hand rub. Tongue is midline and moved [id number] without any difficulty. No dysarthria is noted. Shoulder shrug is normal bilaterally. Motor:Gait is defered. The strength is 5 over 5 throughout except at could not assess the right lower extremity since the patient refused because of chronic pain after cardiac bypass but was able to lift the right upper extremity above gravity without any drift. Normal tone and bulk. Cerebellum: Normal finger to nose bilaterally. Sensation: Sensation is normal to touch throughout. Reflexes (right/left): 2+ throughout except right lower extremity unable to assess since she refused because of her chronic pain. Plantars are downgoing bilaterally. - Labs CBC & Chem 7: 06/22/20 09:47 06/22/20 09:47 Labs: Abnormal Lab Results - Last 24 Hours (Table) 06/21/20 06/22/20 06/22/20 Range/Units 21:34 06:12 09:47 WBC (3.8-10.6) k/uL MCHC (31.0-37.0) g/dL RDW (11.5-15.5) % Neutrophils # (1.3-7.7) k/uL Creatinine 1.26 H (0.52-1.04) mg/dL Glucose 148 H (74-99) mg/dL POC Glucose (mg/dL) 105 H 165 H (75-99) mg/dL Total Bilirubin 1.5 H (0.2-1.3) mg/dL 06/22/20 06/22/20 Range/Units 09:47 11:40 WBC 11.7 H (3.8-10.6) k/uL MCHC 30.0 L (31.0-37.0) g/dL RDW 20.0 H (11.5-15.5) % Neutrophils # 10.3 H (1.3-7.7) k/uL Creatinine (0.52-1.04) mg/dL Glucose (74-99) mg/dL POC Glucose (mg/dL) 131 H (75-99) mg/dL Total Bilirubin (0.2-1.3) mg/dL Assessment and Plan Assessment: Chronic pain on the left eye over the upper nasal quadrant. Toxic metabolic encephalopathy (from uncontrolled hypertension)---resolved Transient ischemic attack (word finding difficulties) from symptomatic left ICA Symptomatic left ICA stenosis Urgent hypertension. Acute kidney injury History of right carotid endarterectomy in 2016 Atrial fibrillation next hyperlipidemia Diabetes type 2 History of coronary artery disease status post CABG Plan: Continue aspirin 81 mg and Xarelto 15 mg daily Continue Lipitor 80 mg daily for secondary stroke prophylaxis Regarding her chronic left eye pain over the upper nasal quadrant recommend an ophthalmology consultation. Patient was notified that in order to identify if there is any lesion of the orbits or the brain that's causing her to have this pain I need this MRI but she continues to refuse. I cannot rule out that the uncontrolled hypertension is the cause of her pain or vice versa. Please avoid rapid drop of the blood pressure to avoid any strokes. Please avoid more than 15% drop in 24 hours. We'll defer the management of uncontrolled hypertension to the primary team Regarding the patient and acute kidney injury will also defer that to the primary team The plan was discussed with the patient as well as with the nurse. Casey Salas M.D. Neuro-hospitalist Time with Patient: Greater than 30
[2020-06-22 16:33] LABS: Glucose,Whole Blood 84 mg/dL (75-99)
[2020-06-22 20:35] LABS: Glucose,Whole Blood 104 mg/dL (75-99)
[2020-06-22] MEDS: ATORVASTATIN 80 MG TAB PO SCH (21:07)
[2020-06-22] MEDS: PANTOPRAZOLE 40 MG TABLET PO SCH (21:07)
[2020-06-22] MEDS: INSULIN DETEMIR (LEVEMIR) 100 UNIT/ML SYR SQ SCH (21:07)
[2020-06-22] MEDS: prednisoLONE ACETATE 1% OPHTH DROPS 5 ML BTL LEFT EYE SCH (21:07)
[2020-06-22] MEDS: RIVAROXABAN 15 MG TAB PO SCH (21:07)
[2020-06-22] MEDS: HYDROcodone/APAP 5-325MG 1 EACH TAB PO PRN (21:08)
[2020-06-23 01:26] VITALS: RESP 14
[2020-06-23] MEDS ORDERED: CIPROFLOXACIN HCL 250 MG TAB PO SCH (03:00)
[2020-06-23 06:33] LABS: Glucose,Whole Blood 79 mg/dL (75-99)
[2020-06-23] MEDS: hydroCHLOROthiazide 25 MG TAB PO SCH (08:27)
[2020-06-23] MEDS: amLODIPine 5 MG TAB PO SCH (08:27)
[2020-06-23] MEDS: LINAGLIPTIN 5 MG TABLET PO SCH (08:27)
[2020-06-23] MEDS: prednisoLONE ACETATE 1% OPHTH DROPS 5 ML BTL LEFT EYE SCH (08:27)
[2020-06-23] MEDS: DICLOFENAC 0.1% OPHTH SOLN 2.5 ML BTL LEFT EYE SCH (08:27)
[2020-06-23] MEDS: FERROUS SULFATE 325 MG TAB PO SCH (08:28)
[2020-06-23] MEDS: lisinopriL 20 MG TAB PO SCH (08:28)
[2020-06-23] MEDS: ASPIRIN 81 MG PO SCH (08:28)
[2020-06-23] MEDS: METOPROLOL TARTRATE 50 MG TAB PO SCH (08:28)
[2020-06-23] MEDS: VIT A,C & E-LUTEIN-MINERALS 1 EACH TAB PO SCH (08:28)
[2020-06-23] MEDS: ALPRAZolam 0.5 MG TAB PO SCH (08:28)
[2020-06-23] MEDS: SPIRONOLACTONE 25 MG TAB PO SCH (08:28)
[2020-06-23 08:57] VITALS: BP 96/55; TEMP 98
--- NOTE | 2020-06-23 09:52 | P.PN ---
Subjective Progress Note Date: 06/23/20 The patient was sent seen at bedside and she said that she's doing better today compared to yesterday. Her jewelry consultant, Dr. Laurent saw her yesterday and prescribed eyedrops. The nurse verified that the jewelry consultant saw the patient yesterday but there is no note (not having access). The patient denies of any further eye pain. Denies of photophobia, phonophobia, nausea, vomiting. She feels completely back to normal. Objective - Vital Signs Vital signs: Vital Signs Temp 98.0 F 06/23/20 08:00 Pulse 83 06/23/20 08:00 Resp 14 06/23/20 08:00 BP 96/55 06/23/20 08:00 Pulse Ox 94 L 06/23/20 08:00 Intake & Output 06/22/20 06/23/20 06/23/20 18:59 06:59 18:59 Intake Total 100 240 125 Output Total 500 Balance 100 -260 125 Weight 68.3 kg Intake: Oral 100 240 125 Output: Urine 500 Other: Voiding Method Bedpan Bedpan Incontinent Incontinent # Voids 1 - Exam GENERAL: The patient is lying in bed and is not in acute distress. CHEST: The heart rate is regular rate rhythm. No murmurs to auscultation. LUNG: Clear to auscultation bilaterally no wheezing noted throughout. Not labored breathing. ABDOMEN/GI: Bowel sounds present in all 4 quadrants. No tenderness to palpation throughout. NEUROLOGICAL: Higher mental function: The patient is awake, alert, oriented to self, place and time. Patient is following commands. No aphasia and no neglect. Cranial nerves: The pupils are round, equal (3mm bilaterally) and reactive to light and accommodation. Visual brar are full to confrontation throughout. Extraocular movement is intact no nystagmus is noted. Facial sensation is normal to touch throughout. The facial strength is normal throughout. Hearing is normal bilaterally to hand rub. Tongue is midline and moved [id number] without any difficulty. No dysarthria is noted. Shoulder shrug is normal bilaterally. Motor: Gait is defered. The strength is 5 over 5 throughout except at could not assess the right lower extremity since the patient refused because of chronic pain after cardiac bypass but was able to lift the right upper extremity above gravity without any drift. Normal tone and bulk. Cerebellum: Normal finger to nose bilaterally. Sensation: Sensation is normal to touch throughout. Reflexes (right/left): 2+ throughout except right lower extremity unable to assess since she refused because of her chronic pain. Plantars are downgoing bilaterally. - Labs CBC & Chem 7: 06/22/20 09:47 06/22/20 09:47 Labs: Abnormal Lab Results - Last 24 Hours (Table) 06/22/20 06/22/20 06/22/20 Range/Units 09:47 09:47 11:40 WBC 11.7 H (3.8-10.6) k/uL MCHC 30.0 L (31.0-37.0) g/dL RDW 20.0 H (11.5-15.5) % Neutrophils # 10.3 H (1.3-7.7) k/uL Creatinine 1.26 H (0.52-1.04) mg/dL Glucose 148 H (74-99) mg/dL POC Glucose (mg/dL) 131 H (75-99) mg/dL Total Bilirubin 1.5 H (0.2-1.3) mg/dL 06/22/20 Range/Units 20:34 WBC (3.8-10.6) k/uL MCHC (31.0-37.0) g/dL RDW (11.5-15.5) % Neutrophils # (1.3-7.7) k/uL Creatinine (0.52-1.04) mg/dL Glucose (74-99) mg/dL POC Glucose (mg/dL) 104 H (75-99) mg/dL Total Bilirubin (0.2-1.3) mg/dL Assessment and Plan Assessment: 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 Laurent her jewelry consultant evaluate the patient yesterday and stated that that this was an iritis of left eye. He prescribed eyedrops (prednisolone acetate 1%, Diclofenac 0.1%). The patient currently feels her pain has resolved. Patient is to follow up with Dr. Laurent in 2 weeks. From a neurology perspective that she's clear. She is to follow up with the Dr. Laurent as an outpatient. Regarding her ICA stenosis and the episode of TIA in the past she is to follow up with that neurology as an outpatient. The plan was discussed with the patient as well as with the nurse. Casey Salas M.D. Neuro-hospitalist Time with Patient: Less than 30
[2020-06-23] MEDS: polyethylene glycoL 3350 17 GM POWD.PACK PO SCH (10:55)
[2020-06-23 11:42] LABS: Glucose,Whole Blood 100 mg/dL (75-99)
--- NOTE | 2020-06-23 13:40 | PN ---
PROGRESS NOTE Mrs. Potter is an 89-year-old female who presented with elevation of her blood pressure and discomfort behind her eyes. She is feeling much better today. Her breathing is better. She denies any symptoms of chest pain. She denies any dizziness or palpitation. Overall, she is feeling much better. 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 She continues to be at this time on amlodipine 5 mg daily, aspirin once a day, Lipitor 80 mg daily, hydrochlorothiazide 25 mg daily, insulin, lisinopril 20 mg twice a day, metoprolol tartrate 50 mg twice a day, Xarelto 15 mg daily, spironolactone 12.5 mg daily. PHYSICAL EXAMINATION: Blood pressure running in the 120s to 130s. Heart rate in the 80s. LUNGS: Clear. HEART: Regular rate and rhythm. S1, S2. No S3 with systolic murmur. No diastolic murmur. ABDOMEN: Soft, nontender. EXTREMITIES: No edema. IMPRESSION: 1. Uncontrolled hypertension under better control at this time. 2. Eye pain, diagnosed with iritis. 3. Probable transient ischemic attack, resolved. 4. Coronary artery disease status post coronary artery bypass grafting. 5. Diabetes. 6. Hyperlipidemia. 7. Paroxysmal atrial fibrillation, anticoagulated. 8. Status post carotid endarterectomy. RECOMMENDATION: From the cardiac standpoint, I will continue present therapy. I will decrease her dose of amlodipine because of the fact that her blood pressure is trending downward and I would expect she should be able to be discharged home soon and followed as an outpatient. MMODL / IJN: [id number] /
[2020-06-23 14:17] VITALS: PULSE 62
--- NOTE | 2020-06-23 14:58 | P.PN ---
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, patient was recently discharged from [facility] after she was admitted for physical therapy rehabilitation and she was recently treated for what appears to be urinary tract infection she has been getting Cipro floxacillin 500 mg orally twice every day she is to have 3 more days to finish, patient was doing fine at home with her daughter when she developed to have a significant pain in both eyes associated with severe headache her blood pressure was extremely elevated 238/88, patient was brought into the emergency department for evaluation had a computed tomogra phy scan of the brain did not show any evidence of acute of normalities, chest x-ray did not show any evidence of acute of normalities, patient was given labetalol and she was started on metoprolol 50 mg orally twice every day, lisinopril 20 mg orally once every day, and added amlodipine 5 minute gram once every day along with hydrochlorothiazide 25 mg orally once every day, patient was admitted to the hospital for evaluation by cardiology as well as by neurology as the patient continues to have those episode of bilateral eye pain followed by severe headache associated with hypertensive urgency. 06/22: patient is lying down in bed continues to have frequent elevation in her BP with significant pain in her left eye, was seen yesterday by both Cardiology and Neurology and it was recommended to have Ophthalmology evaluation again( she was already seen ), we will consult Ophthalmology and we will increase Lisinopril to 20 mg orally bid, added Hydralazine 2mg IVP Q 4 hours as needed for SBP greater than 160, we will continue to monitor very closely as the patient continues to have symptomatic Left ICA disease. Objective - Vital Signs Vital signs: Vital Signs Temp 97.6 F 06/22/20 04:17 Pulse 66 06/22/20 04:17 Resp 16 06/22/20 04:17 BP 184/64 06/22/20 04:17 Pulse Ox 93 L 06/22/20 04:17 Intake & Output 06/21/20 06/21/20 06/22/20 06:59 18:59 06:59 Intake Total 56.667 600 Balance 56.667 600 Weight 68.039 kg 68.039 kg Intake: IV 600 Sodium Chloride 0.9% 1, 600 000 ml @ 75 mls/hr IV . [id number] [facility] Rx#:[id number] Intake, IV Titration 56.667 Amount niCARdipine 20 mg In 56.667 Sodium Chloride 0.9% 192 ml @ 5 MG/HR 50 mls/hr IV .Q4H [facility] Rx#:[id number] Other: Voiding Method Incontinent Bedpan Incontinent # Voids 1 # Bowel Movements 1 - Exam Review of Systems Constitutional: Reports chronic headaches, Reports fatigue, Reports malaise, Reports weakness, Denies anorexia, Denies weight gain, Denies weight loss Eyes: bilateral blurred vision, bilateral decreased vision, bilateral pain Ears, nose, mouth and throat: Denies dysphagia, Denies neck lump, Denies sore throat Cardiovascular: Reports decreased exercise tolerance, Reports dyspnea on exertion, Reports shortness of breath, Denies chest pain, Denies leg edema, Denies lightheadedness, Denies rapid heart beat, Denies syncope Respiratory: Denies congestion, Denies cough, Denies cough with sputum, Denies home oxygen, Denies sleep apnea, Denies snoring, Denies wheezing Gastrointestinal: Reports loss of appetite, Denies abdominal pain, Denies bloating, Denies BRBPR, Denies heartburn, Denies melena, Denies nausea, Denies vomiting Genitourinary: Denies dysuria, Denies nocturia Menstruation: Reports postmenopausal Musculoskeletal: Denies myalgias Musculoskeletal: absent: ankle pain, ankle stiffness, ankle swelling, elbow pain, elbow stiffness, elbow swelling, foot pain, foot stiffness, foot swelling, hand pain, hand stiffness, hand swelling, hip pain, hip stiffness, hip swelling, knee pain, knee stiffness, knee swelling, shoulder pain, shoulder stiffness, shoulder swelling, wrist pain, wrist stiffness, wrist swelling Integumentary: Denies pruritus, Denies rash Neurological: Reports confusion, Reports gait dysfunction, Reports numbness, Reports weakness Psychiatric: Reports anxiety, Reports depression, Denies sadness/tearfulness, Denies sleep disturbances, Denies suicidal ideation Endocrine: Denies fatigue, Denies weight change Physical examination: HEENT: Head is atraumatic, normocephalic, pupils were equal round reactive to light and accommodations, extraocular muscle movement were intact. Oral mucous membranes are dry patient sounded to the upper and lower lip. Neck: Supple, no JVP, decreased carotid upstroke bilaterally. Chest: Decreased breath sounds at the bases, there is no chest wall tenderness no intercostal retractions there is no expiratory wheezes. Heart: First heart sound is depressed, second heart sounds normal, there is systolic murmur 2/6 located at the right second intercostal space related to the base of the neck per Abdomen: Soft, nontender, nondistended, positive bowel sounds. Extremities: No pedal edema bilaterally, dorsalis pedis palpable bilaterally. No calf tenderness. Neurologic examination: Patient is awake and alert and oriented 3. No focal neuro deficits. Cranial nerves III-12 appear grossly intact. - Labs CBC & Chem 7: 06/22/20 09:47 06/22/20 09:47 Labs: Abnormal Lab Results - Last 24 Hours (Table) 06/21/20 06/21/20 06/21/20 Range/Units 04:49 05:10 05:10 MCHC 29.4 L (31.0-37.0) g/dL RDW 20.2 H (11.5-15.5) % PT 12.5 H (9.0-12.0) sec INR 1.2 H (<1.2) APTT 30.3 H (22.0-30.0) sec Potassium (3.5-5.1) mmol/L Creatinine (0.52-1.04) mg/dL Glucose (74-99) mg/dL POC Glucose (mg/dL) 130 H (75-99) mg/dL AST (14-36) U/L Urine Protein (Negative) Urine Blood (Negative) Urine RBC (0-5) /hpf Hyaline Casts (0-2) /lpf 06/21/20 06/21/20 06/21/20 Range/Units 05:10 05:10 21:34 MCHC (31.0-37.0) g/dL RDW (11.5-15.5) % PT (9.0-12.0) sec INR (<1.2) APTT (22.0-30.0) sec Potassium 5.2 H (3.5-5.1) mmol/L Creatinine 1.14 H (0.52-1.04) mg/dL Glucose 134 H (74-99) mg/dL POC Glucose (mg/dL) 105 H (75-99) mg/dL AST 43 H (14-36) U/L Urine Protein 2+ H (Negative) Urine Blood Small H (Negative) Urine RBC 11 H (0-5) /hpf Hyaline Casts 3 H (0-2) /lpf Assessment and Plan Assessment: Assessment and plan: 1. Hypertensive urgency associated with severe headache and hypertensive encephalopathy. Computed tomography scan of the brain did not show any evidence of acute infarct or bleed. currently on metoprolol 50 mg orally twice every day lisinopril 20 mg orally once every day this will be increased to twice every day continue amlodipine 5 mg once every day continue with hydrochlorothiazide 25 mg orally once every day monitor the patient blood pressure very closely, added hydralazine 20 mg IVP Q 4 h as needed for SBP greater than 160. 2. 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 Patient was described diclofenac eyedrops 0.1% apply 4 times every day, patient also was seen ophthalmology, he was recommended to monitor the patient very closely, along with a recent diagnosis of adult macular degeneration for which she was started on PreserVision, we will consult . 3. Paroxysmal atrial fibrillation. We will continue patient on metoprolol 50 mg orally twice every day as well as Xarelto 15 mg orally once every day. 4. History of coronary artery disease status post three-vessel CABG in 1995. Continue patient on metoprolol 50 mg orally twice every day as well as Lipitor 10 mg orally once every day. 5. Carotid artery disease status post carotid endarterectomy. Stable patient has had a CTA of the carotid arteries in the past that showed significant and he modynamic stenosis of the left ICA of greater than 70 % and was seen by vascular surgery and believe options were discuseed with patient and her daughter and the elected for medical management. 6. Diabetes mellitus type 2, insulin requiring. Continue Levemir 14 units at bedtime and NovoLog scale before meals and at bedtime, Tradjenta 5 mg daily. Continue Accu-Chek before each meal and at bedtime along with a sliding scale insulin. 7. 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 Continue metoprolol 50 mg orally twice every day, lisinopril 20 mg orally twice every day at amlodipine 5 mg orally once every day along with Hydrochlorthiazide 25 mg orally once every day, we added Hydralazine 20 mg IVP Q 4 H as needed for SBP greater than 160. 8. Hyperlipidemia. Continue Lipitor 10 mg daily. 9. Chronic vertigo. Stable. 10. Gastroesophageal reflux disease. Continue Protonix 40 mg daily. 11. DVT prophylaxis. Currently on Xarelto 15 mg orally once every day. 12. GI prophylaxis. Continue patient on Protonix 40 mg orally once every day. 13. Physical therapy evaluation. 14. 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 15. No code.
--- NOTE | 2020-06-23 15:01 | P.DS ---
Providers Date of admission: 06/21/20 06:14 Expected date of discharge: 06/23/20 Attending physician: Marilyn Nash Consults: 06/21/20 06:14 Consult Physician Urgent Consulting Provider: Casey Salas Consult Reason/Comments: hypertensive encephalopathy Do you want consulting provider notified?: Yes Consult Physician Urgent Consulting Provider: [facility] Consult Reason/Comments: recurrent hypertensive encephalopathy Do you want consulting provider notified?: Yes 06/22/20 04:55 Consult Physician Routine Consulting Provider: Jose Miguel Laurent Consult Reason/Comments: Left eye pain Do you want consulting provider notified?: Yes 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, patient was recently discharged from [facility] after she was admitted for physical therapy rehabilitation and she was recently treated for what appears to be urinary tract infection she has been getting Cipro floxacillin 500 mg orally twice every day she is to have 3 more days to finish, patient was doing fine at home with her daughter when she developed to have a significant pain in both eyes associated with severe headache her blood pressure was extremely elevated 238/88, patient was brought into the emergency department for evaluation had a computed tomography scan of the brain did not show any evidence of acute of normalities, chest x-ray did not show any evidence of acute of normalities, patient was given labetalol and she was started on metoprolol 50 mg orally twice every day, lisinopril 20 mg orally once every day, and added amlodipine 5 minute gram once every day along with hydrochlorothiazide 25 mg orally once every day, patient was admitted to the hospital for evaluation by cardiology as well as by neurology as the patient continues to have those episode of bilateral eye pain followed by severe headache associated with hypertensive urgency. 06/22: patient is lying down in bed continues to have frequent elevation in her BP with significant pain in her left eye, was seen yesterday by both Cardiology and Neurology and it was recommended to have Ophthalmology evaluation again( she was already seen ), we will consult Ophthalmology and we will increase Lisinopril to 20 mg orally bid, added Hydralazine 2mg IVP Q 4 hours as needed for SBP greater than 160, we will continue to monitor very closely as the patient continues to have symptomatic Left ICA disease. discharge diagnoses: 1. Hypertensive urgency associated with severe headache and hypertensive encephalopathy. 2. 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 3. Paroxysmal atrial fibrillation. 4. History of coronary artery disease status post three-vessel CABG in 1995. 5. Carotid artery disease status post carotid endarterectomy. 6. Diabetes mellitus type 2, insulin requiring. 7. 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 8. Hyperlipidemia. 9. Chronic vertigo. Patient Condition at Discharge: Fair Plan - Discharge Summary Discharge Rx Participant: No New Discharge Prescriptions: No Action Insulin Detemir [Levemir Flextouch] 14 units SQ HS polyethylene glycoL 3350 [Miralax] 17 gm PO DAILY Pantoprazole [Protonix] 40 mg PO HS Rivaroxaban [Xarelto] 15 mg PO HS Metoprolol Tartrate [Lopressor] 50 mg PO BID Linagliptin [Tradjenta] 5 mg PO DAILY Acetaminophen Tab [Tylenol] 650 mg PO Q6HR PRN tab PRN Reason: Mild Pain Or Fever > 100.5 Ferrous Sulfate [Iron (65 MG Elemental)] 325 mg PO BID Diclofenac 0.1% Ophth Soln [Voltaren 0.1% Ophth Soln] 1 drop LEFT EYE QID Vit C/E/Zn/Coppr/Lutein/Zeaxan [Preservision Areds 2 Softgel] 1 cap PO BID Aspirin 81 mg PO DAILY chew Atorvastatin [Lipitor] 80 mg PO HS #30 tab Hydrocodone/Acetaminophen [Randolph 5-325] 1 tab PO TID PRN #9 tab PRN Reason: Pain Spironolactone [Aldactone] 12.5 mg PO DAILY #0 Ciprofloxacin HCl [Cipro] 250 mg PO Q12HR lisinopriL [Zestril] 20 mg PO HS ALPRAZolam [Xanax] 0.5 mg PO BID Discharge Medication List Insulin Detemir [Levemir Flextouch] 14 units SQ HS 03/02/20 [History] Linagliptin [Tradjenta] 5 mg PO DAILY 04/08/20 [History] Metoprolol Tartrate [Lopressor] 50 mg PO BID 04/08/20 [History] Pantoprazole [Protonix] 40 mg PO HS 04/08/20 [History] Rivaroxaban [Xarelto] 15 mg PO HS 04/08/20 [History] polyethylene glycoL 3350 [Miralax] 17 gm PO DAILY 04/08/20 [History] Acetaminophen Tab [Tylenol] 650 mg PO Q6HR PRN tab 04/13/20 [Rx] Diclofenac 0.1% Ophth Soln [Voltaren 0.1% Ophth Soln] 1 drop LEFT EYE QID 05/23/20 [History] Ferrous Sulfate [Iron (65 MG Elemental)] 325 mg PO BID 05/23/20 [History] Vit C/E/Zn/Coppr/Lutein/Zeaxan [Preservision Areds 2 Softgel] 1 cap PO BID 05/23/20 [History] Aspirin 81 mg PO DAILY chew 05/25/20 [Rx] Atorvastatin [Lipitor] 80 mg PO HS #30 tab 05/25/20 [Rx] Hydrocodone/Acetaminophen [Randolph 5-325] 1 tab PO TID PRN #9 tab 05/25/20 [Rx] Spironolactone [Aldactone] 12.5 mg PO DAILY #0 05/26/20 [Rx] ALPRAZolam [Xanax] 0.5 mg PO BID 06/21/20 [History] Ciprofloxacin HCl [Cipro] 250 mg PO Q12HR 06/21/20 [History] lisinopriL [Zestril] 20 mg PO HS 06/21/20 [History] Follow up Appointment(s)/Referral(s): [facility], [NON-STAFF] - [place] Colin MD [STAFF PHYSICIAN] - 07/10/20 3:00 pm (with Florencia Marvin NP) Marilyn Nash MD [Primary Care Provider] - 1-2 days (please call the office Friday to set up your appointment ) Jose Miguel Laurent MD [STAFF PHYSICIAN] - 07/07/20 9:20 am Patient Instructions/Handouts: Hypertensive Crisis (DC), Hypertension in the Older Adult (DC)
--- NOTE | 2020-06-24 07:46 | CONS ---
CONSULTATION DATE OF SERVICE: 06/22/2020 REASON FOR CONSULTATION: Ophthalmology consult. HISTORY OF PRESENT ILLNESS: Ms. Potter is an 89-year-old female with recent episodes of pain in the left eye. The patient also reports occasional redness in that eye. There are no other associated symptoms. There is no decreased vision. She denies temporal pain or jaw claudication or pain. REVIEW OF SYSTEMS: Otherwise negative. As above. The patient also notes occasional dizziness and joint pain. HOME MEDICATIONS: Home medications include acetaminophen, Dulcolax, insulin, lisinopril, metoprolol, MiraLAX, [place], Protonix, simvastatin, spironolactone, Xarelto. ALLERGIES: AMBIEN. PAST MEDICAL HISTORY: Diabetes mellitus type 2 and hypertension. PAST SURGICAL HISTORY: Previous ophthalmic surgery includes cataract surgery in both eyes. SOCIAL HISTORY: Noncontributory. FAMILY HISTORY: Noncontributory. SMOKING STATUS: The patient denies smoking or tobacco use. OPHTHALMIC EXAM: Visual acuity is 20/40 at near in the right eye and 20/40 at near in the left eye. The intra-ocular pressure is approximately 20 in both eyes. Extraocular movements are full. There is no afferent pupillary defect. The lids and lashes are within normal limits. The conjunctiva is white in the right eye and slightly injected in the left eye. The anterior chamber shows no significant abnormalities at bedside exam. There is an intra-ocular lens in both eyes. Retinal exam reveals no evidence of diabetic retinopathy and mild macular changes consistent with macular degeneration. ASSESSMENT AND PLAN: 1. 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 I recommend using Pred Forte b.i.d. in the left eye. I also recommend using diclofenac b.i.d. in the left eye. Both medications can be continued as an outpatient until followup in the clinic. The pain is not typical of glaucoma or temporal arteritis. However, those are considered on the differential and can be further investigated in the future. However, upon detailed questioning, the patient does not appear to have temporal arteritis. Also, the optic nerves are within normal limits. 2. Type 2 diabetes with no retinopathy. I encourage good blood sugar control. 3. Macular degeneration, dry, bilateral. This appears mild and can be evaluated as an outpatient. Thank you for allowing me to participate in this patient's care. She will be re- evaluated in the office in the next few weeks. Thank you. SHERYL / LISSETT: [id number] /
[2020-06-24] MEDS ORDERED: amLODIPine 2.5 MG TAB PO SCH (09:00)
== END 2020-06-23 16:10 | disposition home health service (06) | DRG 304 ==
LOC: EC 04:33 → 3SCARD 06:14
PROVIDERS: ADMIT Internal Medicine; ATTEND Internal Medicine
DX: I16.0 Hypertensive urgency (principal); G92 Toxic encephalopathy; I50.22 Chronic systolic (congestive) heart failure; I67.4 Hypertensive encephalopathy; H20.9 Unspecified iridocyclitis; N17.9 Acute kidney failure, unspecified; I13.0 Hypertensive heart and chronic kidney disease with heart failure and stage 1 through stage 4 chronic kidney disease, or unspecified chronic kidney disease; N18.2 Chronic kidney disease, stage 2 (mild); Z87.891 Personal history of nicotine dependence; D64.9 Anemia, unspecified; E11.22 Type 2 diabetes mellitus with diabetic chronic kidney disease; E78.5 Hyperlipidemia, unspecified; G89.29 Other chronic pain; R40.2352 Coma scale, best motor response, localizes pain, at arrival to emergency department; R40.2132 Coma scale, eyes open, to sound, at arrival to emergency department; R40.2242 Coma scale, best verbal response, confused conversation, at arrival to emergency department; H35.30 Unspecified macular degeneration; I25.2 Old myocardial infarction; I25.10 Atherosclerotic heart disease of native coronary artery without angina pectoris; I08.0 Rheumatic disorders of both mitral and aortic valves; I48.0 Paroxysmal atrial fibrillation; I49.1 Atrial premature depolarization; I65.22 Occlusion and stenosis of left carotid artery; K21.9 Gastro-esophageal reflux disease without esophagitis; Z66 Do not resuscitate; R45.1 Restlessness and agitation; R26.9 Unspecified abnormalities of gait and mobility; Z91.81 History of falling; Z80.8 Family history of malignant neoplasm of other organs or systems; R42 Dizziness and giddiness; Z87.19 Personal history of other diseases of the digestive system; H47.019 Ischemic optic neuropathy, unspecified eye; M25.552 Pain in left hip; M25.551 Pain in right hip; Z88.8 Allergy status to other drugs, medicaments and biological substances; Z79.01 Long term (current) use of anticoagulants; Z79.82 Long term (current) use of aspirin; Z79.899 Other long term (current) drug therapy; Z90.710 Acquired absence of both cervix and uterus; Z86.73 Personal history of transient ischemic attack (TIA), and cerebral infarction without residual deficits; Z79.4 Long term (current) use of insulin; Z95.1 Presence of aortocoronary bypass graft; R51.9 Headache, unspecified
CPT/HCPCS: 36415; 70450; 71045; 80053; 81001; 84484; 85025; 85610; 85730; 93005; 96361; 96374; 96376; 99285

== ENCOUNTER 2020-06-23 17:45 | Inpatient (IN) | payer MEDICARE, BC ==
[2020-06-23] MEDS ORDERED: SODIUM CHLORIDE 0.9% 1,000 ML IV STA (18:27)
[2020-06-23] MEDS ORDERED: HYDROmorphone 1 MG/ML 1 ML SYRINGE IVP STA (18:28)
[2020-06-23] MEDS ORDERED: DEXAMETHASONE SOD PHOSPHATE 10 MG/ML 1 ML VIAL IV STA (18:31)
--- NOTE | 2020-06-23 18:31 | ED ---
Recheck HPI - General Chief Complaint: Eye Problems Stated Complaint: revisit, headache Time Seen by Provider: 06/23/20 18:09 Source: patient, family, RN notes reviewed, old records reviewed Mode of arrival: ambulatory Limitations: no limitations - History of Present Illness Initial Comments: This is an 81-year-old female DF for evaluation patient presents today for evaluation of severe headache and inpatient admission for evaluation regarding headache. Patient is persistent severe headache here in the ER was discharged home today and swelling over 2 hours with a headache significant worsened. Now is going down into her neck area. No chest pain shortness with abdominal pain noted traumas MD Complaint: other (Worsening pain) -: hour(s) Returns Today for: persistent/worsening pain related to initial visit Symptoms Since Prior Visit: worsening pain Associated Symptoms: none - Related Data Home Medications Medication Instructions Recorded Confirmed Insulin Detemir [Levemir Flextouch] 14 units SQ HS 03/02/20 06/21/20 Linagliptin [Tradjenta] 5 mg PO DAILY 04/08/20 06/21/20 Metoprolol Tartrate [Lopressor] 50 mg PO BID 04/08/20 06/21/20 Pantoprazole [Protonix] 40 mg PO HS 04/08/20 06/21/20 Rivaroxaban [Xarelto] 15 mg PO HS 04/08/20 06/21/20 polyethylene glycoL 3350 [Miralax] 17 gm PO DAILY 04/08/20 06/21/20 Diclofenac 0.1% Ophth Soln 1 drop LEFT EYE QID 05/23/20 06/21/20 [Voltaren 0.1% Ophth Soln] Ferrous Sulfate [Iron (65 MG 325 mg PO BID 05/23/20 06/21/20 Elemental)] Vit C/E/Zn/Coppr/Lutein/Zeaxan 1 cap PO BID 05/23/20 06/21/20 [Preservision Areds 2 Softgel] ALPRAZolam [Xanax] 0.5 mg PO BID 06/21/20 06/21/20 Previous Rx's Medication Instructions Recorded Acetaminophen Tab [Tylenol] 650 mg PO Q6HR PRN tab 04/13/20 Aspirin 81 mg PO DAILY chew 05/25/20 Atorvastatin [Lipitor] 80 mg PO HS #30 tab 05/25/20 Hydrocodone/Acetaminophen [[place] 1 tab PO TID PRN #9 tab 05/25/20 5-325] Spironolactone [Aldactone] 12.5 mg PO DAILY #0 05/26/20 amLODIPine [Norvasc] 2.5 mg PO DAILY #30 tab 06/23/20 hydroCHLOROthiazide [Hydrodiuril] 25 mg PO DAILY #30 tab 06/23/20 lisinopriL [Zestril] 20 mg PO BID #60 tab 06/23/20 prednisoLONE ACETATE 1% OPHTH 1 drops LEFT EYE BID #5 ml 06/23/20 [Pred Forte 1%] Allergies Allergy/AdvReac Type Severity Reaction Status Date / Time zolpidem [From Ambien] AdvReac Hallucinati Verified 06/23/20 18:01 ons Review of Systems ROS Statement: Those systems with pertinent positive or pertinent negative responses have been documented in the HPI. ROS Other: All systems not noted in ROS Statement are negative. Past Medical History Past Medical History: Atrial Fibrillation, Coronary Artery Disease (CAD), Chest Pain / Angina, Heart Failure, CVA/TIA, Diabetes Mellitus, Eye Disorder, GERD/Reflux, Hyperlipidemia, Hypertension, Myocardial Infarction ([place]), Renal Disease, Syncope, Vascular Disorder Additional Past Medical History / Comment(s): Pt recently admitted to [facility] with L eye pain/optic ischemic neuropathy/TIA, EF 35% with mild aortic stenosis/mild mitral regurg. 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 Past Anesthesia/Blood Transfusion Reactions: No Reported Reaction Past Psychological History: No Psychological Hx Reported Smoking Status: Former smoker Past Alcohol Use History: None Reported Past Drug Use History: None Reported - Past Family History Mother Family Medical History: No Reported History Additional Family Medical History / Comment(s): Mother at age 82 from old age. Father Family Medical History: No Reported History Additional Family Medical History / Comment(s): Father from old age and patient does not recall his age or any medical problems. Son(s) Family Medical History: Cancer Additional Family Medical History / Comment(s): Patient has one son with history of throat cancer in remission. Patient has one daughter with no major medical problems. Patient does not have any brothers or sisters. General Exam Limitations: no limitations General appearance: alert, in no apparent distress Head exam: Present: atraumatic, normocephalic, normal inspection Eye exam: Present: normal appearance, PERRL, EOMI. Absent: scleral icterus, conjunctival injection, periorbital swelling ENT exam: Present: normal exam, mucous membranes moist Neck exam: Present: normal inspection. Absent: tenderness, meningismus, lymphadenopathy Respiratory exam: Present: normal lung sounds bilaterally. Absent: respiratory distress, wheezes, rales, rhonchi, stridor Cardiovascular Exam: Present: regular rate, normal rhythm, normal heart sounds. Absent: systolic murmur, diastolic murmur, rubs, gallop, clicks GI/Abdominal exam: Present: soft, normal bowel sounds. Absent: distended, tenderness, guarding, rebound, rigid Extremities exam: Present: normal inspection, full ROM, normal capillary refill. Absent: tenderness, pedal edema, joint swelling, calf tenderness Back exam: Present: normal inspection Neurological exam: Present: alert, oriented X3, CN II-XII intact Psychiatric exam: Present: normal affect, normal mood Skin exam: Present: warm, dry, intact, normal color. Absent: rash Course Vital Signs 06/23/20 06/23/20 18:01 20:02 Temperature 98.3 F Pulse Rate 72 68 Respiratory 18 16 Rate Blood Pressure 140/73 203/95 O2 Sat by Pulse 96 90 L Oximetry - Reevaluation(s) Reevaluation #1: 06/23/20 19:30 Medical record is reviewed Reevaluation #2: 06/23/20 19:30 Patient has improved pain mildly Reevaluation #3: 06/23/20 20:51 Spoke with patient regarding results questions are answered Medical Decision Making - Medical Decision Making 81 female persistent spell, blood pressure still elevated, will admit for continued evaluation - Lab Data Result diagrams: 06/23/20 19:01 06/23/20 19:01 Lab Results 06/23/20 06/23/20 Range/Units 19: 19:01 WBC 11.8 H (3.8-10.6) k/uL RBC 5.18 (3.80-5.40) m/uL Hgb 13.9 (11.4-16.0) gm/dL Hct 46.9 H (34.0-46.0) % MCV 90.6 (80.0-100.0) fL MCH 26.9 (25.0-35.0) pg MCHC 29.7 L (31.0-37.0) g/dL RDW 19.8 H (11.5-15.5) % Plt Count 266 (150-450) k/uL Neutrophils % 79 % Lymphocytes % 12 % Monocytes % 6 % Eosinophils % 2 % Basophils % 1 % Neutrophils # 9.3 H (1.3-7.7) k/uL Lymphocytes # 1.4 (1.0-4.8) k/uL Monocytes # 0.7 (0-1.0) k/uL Eosinophils # 0.2 (0-0.7) k/uL Basophils # 0.1 (0-0.2) k/uL Hypochromasia Marked Anisocytosis Slight Microcytosis Slight Sodium 134 L (137-145) mmol/L Potassium 5.5 H (3.5-5.1) mmol/L Chloride 104 (98-107) mmol/L Carbon Dioxide 18 L (22-30) mmol/L Anion Gap 12 mmol/L BUN 32 H (7-17) mg/dL Creatinine 1.91 H (0.52-1.04) mg/dL Est GFR (CKD-EPI)AfAm 27 (>60 ml/min/1.73 sqM) Est GFR (CKD-EPI)NonAf 23 (>60 ml/min/1.73 sqM) Glucose 123 H (74-99) mg/dL Calcium 9.5 (8.4-10.2) mg/dL Phosphorus 4.2 (2.5-4.5) mg/dL Magnesium 2.1 (1.6-2.3) mg/dL Total Bilirubin 1.3 (0.2-1.3) mg/dL AST 43 H (14-36) U/L ALT 16 (4-34) U/L Alkaline Phosphatase 67 (38-126) U/L C-Reactive Protein <5.0 (<10.0) mg/L Total Protein 7.9 (6.3-8.2) g/dL Albumin 4.5 (3.5-5.0) g/dL - Radiology Data Radiology results: report reviewed (CT brain is negative for acute disease), image reviewed Disposition Clinical Impression: Headache, Hypertensive urgency Disposition: ADMITTED IP TO THIS [facility] Condition: Fair Is patient prescribed a controlled substance at d/c from ED?: No Referrals: Marilyn Nash MD [Primary Care Provider] - 1-2 days
[2020-06-23] MEDS ORDERED: carBAMazepine 400 MG TAB.ER.12H PO STA (18:38)
[2020-06-23 20:02] LABS: ALT 16 U/L (4-34); AST 43 U/L (14-36); African American GFR (CKD) 27 (>60 ml/min/1.73 sqM); Albumin 4.5 g/dL (3.5-5.0); Alkaline Phosphatase 67 U/L (38-126); Anion Gap 12 mmol/L; Blood Urea Nitrogen 32 mg/dL (7-17); C Reactive Protein <5.0 mg/L (<10.0); Calcium 9.5 mg/dL (8.4-10.2); Carbon Dioxide 18 mmol/L (22-30); Chloride 104 mmol/L (98-107); Glucose 123 mg/dL (74-99); Magnesium 2.1 mg/dL (1.6-2.3); Non-African American GFR(CKD) 23 (>60 ml/min/1.73 sqM); Phosphorus 4.2 mg/dL (2.5-4.5); Potassium 5.5 mmol/L (3.5-5.1); Sodium 134 mmol/L (137-145); Total Bilirubin 1.3 mg/dL (0.2-1.3); Total Protein 7.9 g/dL (6.3-8.2)
--- NOTE | 2020-06-23 20:02 | CT ---
EXAMINATION TYPE: CT brain wo con DATE OF EXAM: 06/23/2020 COMPARISON: 06/21/2020 HISTORY: weakness, AMS CT DLP: 1078.4 mGycm Automated exposure control for dose reduction was used. There is cerebral atrophy. There is no mass effect nor midline shift. There is no sign of intracrania l hemorrhage. Calvarium is intact. IMPRESSION: Cerebral atrophy. No acute intracranial abnormality. No significant change compared to old exam.
[2020-06-23 20:25] LABS: Anisocytosis Slight; Basophils # (A) 0.1 k/uL (0-0.2); Basophils % (A) 1 %; Eosinophils # (A) 0.2 k/uL (0-0.7); Eosinophils % (A) 2 %; HCT 46.9 % (34.0-46.0); HGB 13.9 gm/dL (11.4-16.0); Hypochromasia Marked; Lymphocytes # (A) 1.4 k/uL (1.0-4.8); Lymphocytes % (A) 12 %; MCH 26.9 pg (25.0-35.0); MCHC 29.7 g/dL (31.0-37.0); MCV 90.6 fL (80.0-100.0); Mean Platelet Volume 8.6; Microcytosis Slight; Monocytes # (A) 0.7 k/uL (0-1.0); Monocytes % (A) 6 %; Neutrophils # (A) 9.3 k/uL (1.3-7.7); Neutrophils % (A) 79 %; Platelet Count 266 k/uL (150-450); RBC 5.18 m/uL (3.80-5.40); RDW 19.8 % (11.5-15.5); WBC 11.8 k/uL (3.8-10.6)
[2020-06-23] MEDS ORDERED: SODIUM CHLORIDE 0.9% 1,000 ML IV ONE (20:49)
[2020-06-23] MEDS ORDERED: HYDROmorphone 1 MG/ML 1 ML SYRINGE IVP PRN (20:49)
[2020-06-23] MEDS ORDERED: LORazepam 2 MG/ML INJ IV PRN (20:49)
[2020-06-23] MEDS ORDERED: LABETALOL 5 MG/ML VIAL MDV IVP STA (20:49)
[2020-06-24] MEDS ORDERED: HYDROcodone/APAP 5-325MG 1 EACH TAB PO PRN (00:04)
[2020-06-24] MEDS ORDERED: ALPRAZolam 0.5 MG TAB PO PRN (00:07)
[2020-06-24] MEDS ORDERED: ACETAMINOPHEN TAB 325 MG TAB PO PRN (00:07)
[2020-06-24] MEDS: PANTOPRAZOLE 40 MG TABLET PO SCH ×2 (00:46→21:08)
[2020-06-24] MEDS: ATORVASTATIN 80 MG TAB PO SCH ×2 (00:47→21:07)
[2020-06-24] MEDS: RIVAROXABAN 15 MG TAB PO SCH ×2 (00:47→21:08)
[2020-06-24 06:40] LABS: Glucose,Whole Blood 154 mg/dL (75-99)
[2020-06-24] MEDS: INSULIN ASPART (NovoLOG) 100 UNIT/ML VIAL SQ SCH ×4 (08:49→21:08)
[2020-06-24] MEDS: hydroCHLOROthiazide 25 MG TAB PO SCH (08:56)
[2020-06-24] MEDS: polyethylene glycoL 3350 17 GM POWD.PACK PO SCH (08:56)
[2020-06-24] MEDS: SPIRONOLACTONE 25 MG TAB PO SCH ×2 (08:57→12:28)
[2020-06-24] MEDS: FERROUS SULFATE 325 MG TAB PO SCH ×2 (08:58→17:04)
[2020-06-24] MEDS: prednisoLONE ACETATE 1% OPHTH DROPS 5 ML BTL RIGHT EYE SCH ×2 (08:58→21:08)
[2020-06-24] MEDS: DICLOFENAC 0.1% OPHTH SOLN 2.5 ML BTL RIGHT EYE SCH ×4 (08:58→21:08)
[2020-06-24] MEDS ORDERED: lisinopriL 20 MG TAB PO SCH (09:00)
[2020-06-24] MEDS ORDERED: amLODIPine 2.5 MG TAB PO SCH (09:00)
[2020-06-24] MEDS: ASPIRIN 81 MG PO SCH (09:07)
[2020-06-24 11:32] LABS: Glucose,Whole Blood 124 mg/dL (75-99)
[2020-06-24 11:52] LABS: Calcium 8.4 mg/dL (8.4-10.2); Potassium 4.5 mmol/L (3.5-5.1)
--- NOTE | 2020-06-24 12:01 | P.CRDCN ---
History of Present Illness Consult date: 06/24/20 Requesting physician: Marilyn Nash Reason for Consult (text): htn Chief complaint: Bilateral eye pain left worse than right History of present illness: This is a pleasant 89-year-old female patient who follows with Dr. Colin in the office. She has a past medical history significant for paroxysmal atrial fibrillation, coronary artery disease with prior bypass surgery with FRIEDMAN to LAD, SVG to RCA in , hyperlipidemia, carotid artery disease status post endarterectomy, hypertension, diabetes, prior GI bleed, chronic vertigo. She was recently in the hospital with complaints of bilateral eye pain and severe headache as well as significant hypertension. Medications were adjusted and blood pressure was well-controlled and she was discharged yesterday. She returned to the emergency department with similar Similar complaints of bilateral eye pain with the left worse than the right. During previous admission she was diagnosed with left iritis and started on eyedrops. She was feeling well then developed eye pain again at home. Blood pressure initially on presentation was 140/73 with a repeat of 203/95 hours later. She is currently on lisinopril 20 mg by mouth twice a day, hydrochlorothiazide 25 mg by mouth daily, amlodipine 2.5 mg daily, Aldactone 12.5 mg by mouth daily, Lopressor 50 mg by mouth twice a day, aspirin 81 mg daily and Xarelto. Upon examination she is resting comfortably in bed. Her pain has improved but her eyes still feel irritated. Pressure is better controlled. Labs on admission showed worsening renal function and potassium 5.5. Past Medical History Past Medical History: Atrial Fibrillation, Coronary Artery Disease (CAD), Chest Pain / Angina, Heart Failure, CVA/TIA, Diabetes Mellitus, Eye Disorder, GERD/Reflux, Hyperlipidemia, Hypertension, Myocardial Infarction ([place]), Renal Disease, Syncope, Vascular Disorder Additional Past Medical History / Comment(s): Pt recently admitted to [facility] with L eye pain/optic ischemic neuropathy/TIA, EF 35% with mild aortic stenosis/mild mitral regurg. 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 Past Anesthesia/Blood Transfusion Reactions: No Reported Reaction Past Psychological History: No Psychological Hx Reported Additional Psychological History / Comment(s): Pt resides with her luis at this time. She has [facility]. She is using a walker and has a wheelchair for going to and from apartment. She no longer drives, her luis drives. Smoking Status: Former smoker Past Alcohol Use History: None Reported Additional Past Alcohol Use History / Comment(s): Pt started smoking in 1955 and quit in 2015. Past Drug Use History: None Reported Additional Drug Use History / Comment(s): Patient smoked for 60+ years. Quit in 2015 - Past Family History Mother Family Medical History: No Reported History Additional Family Medical History / Comment(s): Mother at age 82 from old age. Father Family Medical History: No Reported History Additional Family Medical History / Comment(s): Father from old age and patient does not recall his age or any medical problems. Son(s) Family Medical History: Cancer Additional Family Medical History / Comment(s): Patient has one son with history of throat cancer in remission. Patient has one daughter with no major medical problems. Patient does not have any brothers or sisters. Medications and Allergies Home Medications Medication Instructions Recorded Confirmed Type Insulin Detemir [Levemir Flextouch] 14 units SQ HS 03/02/20 06/23/20 History Linagliptin [Tradjenta] 5 mg PO DAILY 04/08/20 06/23/20 History Metoprolol Tartrate [Lopressor] 50 mg PO BID 04/08/20 06/23/20 History Pantoprazole [Protonix] 40 mg PO HS 04/08/20 06/23/20 History Rivaroxaban [Xarelto] 15 mg PO HS 04/08/20 06/23/20 History polyethylene glycoL 3350 [Miralax] 17 gm PO DAILY 04/08/20 06/23/20 History Acetaminophen Tab [Tylenol] 650 mg PO Q6HR PRN tab 04/13/20 06/23/20 Rx Diclofenac 0.1% Ophth Soln 1 drop LEFT EYE QID 05/23/20 06/23/20 History [Voltaren 0.1% Ophth Soln] Ferrous Sulfate [Iron (65 MG 325 mg PO BID 05/23/20 06/23/20 History Elemental)] Vit C/E/Zn/Coppr/Lutein/Zeaxan 1 cap PO BID 05/23/20 06/23/20 History [Preservision Areds 2 Softgel] Aspirin 81 mg PO DAILY chew 05/25/20 06/23/20 Rx Atorvastatin [Lipitor] 80 mg PO HS #30 tab 05/25/20 06/23/20 Rx Hydrocodone/Acetaminophen [[place] 1 tab PO TID PRN #9 tab 05/25/20 06/23/20 Rx 5-325] Spironolactone [Aldactone] 12.5 mg PO DAILY #0 05/26/20 06/23/20 Rx ALPRAZolam [Xanax] 0.5 mg PO BID 06/21/20 06/23/20 History amLODIPine [Norvasc] 2.5 mg PO DAILY #30 tab 06/23/20 06/23/20 Rx hydroCHLOROthiazide [Hydrodiuril] 25 mg PO DAILY #30 tab 06/23/20 06/23/20 Rx lisinopriL [Zestril] 20 mg PO BID #60 tab 06/23/20 06/23/20 Rx prednisoLONE ACETATE 1% OPHTH 1 drops LEFT EYE BID #5 ml 06/23/20 06/23/20 Rx [Pred Forte 1%] Allergies Allergy/AdvReac Type Severity Reaction Status Date / Time zolpidem [From Ambien] AdvReac Hallucinati Verified 06/23/20 21:06 ons Physical Exam Vitals: Vital Signs Temp Pulse Pulse Pulse Resp BP BP 06/24/20 08:51 98.1 F 76 16 132/54 06/24/20 04:50 97 146/65 06/24/20 02:07 98.3 F 78 17 151/52 06/23/20 23:05 76 16 06/23/20 22:00 77 16 160/59 06/23/20 21:30 97.6 F 64 16 165/59 10/02/20 21:08 98.2 F 76 17 159/67 06/23/20 21:00 65 16 189/65 06/23/20 20:02 68 16 203/95 06/23/20 18:01 98.3 F 72 18 140/73 Pulse Ox 06/24/20 08:51 95 06/24/20 04:50 06/24/20 02:07 96 06/23/20 23:05 06/23/20 22:00 95 06/23/20 21:30 96 06/23/20 21:08 95 06/23/20 21:00 96 06/23/20 20:02 90 L 06/23/20 18:01 96 Intake and Output 06/23/20 06/24/20 06/24/20 22:59 06:59 14:59 Intake Total 1200 1000 Balance 1200 1000 Intake: Amount of Fluid Infused ( 1000 ml) Intake, IV Titration 800 Amount Sodium Chloride 0.9% 1, 800 000 ml @ 100 mls/hr IV . Q10H ONE Rx#:[id number] Oral 200 200 Other: Voiding Method Bedpan Bedpan # Voids 1 Weight 60.781 kg PHYSICAL EXAMINATION: This is a 89-year-old female in no apparent distress at the time of my examination. VITAL SIGNS: Blood pressure 132/54, heart rate 96, respirations 16, temp 98.1F. Patient is 95 % on room air. HEENT: Head is atraumatic, normocephalic. Pupils are equal, round. Sclerae anicteric. Conjunctivae are clear. Mucous membranes of the mouth are moist. Neck is supple. There is no elevated jugular venous pressure. No carotid bruit is heard. CHEST EXAMINATION: Clear to auscultation bilaterally. No wheezes rales or rhonchi. Respirations even and nonlabored. HEART EXAMINATION: Heart regular, positive S1 and S2. No S3. No S4. With a systolic murmur. ABDOMEN: Soft, nontender. Bowel sounds are heard. No organomegaly noted. EXTREMITIES: 2+ peripheral pulses with no evidence of peripheral edema and no calf tenderness noted. NEUROLOGIC EXAMINATION: Patient is awake, alert and oriented x2-3. -- Results 06/23/20 19:01 06/23/20 19:01 Cardiac Enzymes 06/23/20 Range/Units 19:01 AST 43 H (14-36) U/L CBC 06/23/20 Range/Units 19:01 WBC 11.8 H (3.8-10.6) k/uL RBC 5.18 (3.80-5.40) m/uL Hgb 13.9 (11.4-16.0) gm/dL Hct 46.9 H (34.0-46.0) % Plt Count 266 (150-450) k/uL Comprehensive Metabolic Panel 06/23/20 Range/Units 19:01 Sodium 134 L (137-145) mmol/L Potassium 5.5 H (3.5-5.1) mmol/L Chloride 104 (98-107) mmol/L Carbon Dioxide 18 L (22-30) mmol/L BUN 32 H (7-17) mg/dL Creatinine 1.91 H (0.52-1.04) mg/dL Glucose 123 H (74-99) mg/dL Calcium 9.5 (8.4-10.2) mg/dL AST 43 H (14-36) U/L ALT 16 (4-34) U/L Alkaline Phosphatase 67 (38-126) U/L Total Protein 7.9 (6.3-8.2) g/dL Albumin 4.5 (3.5-5.0) g/dL Current Medications Generic Name Dose Route Start Last Admin Trade Name Freq PRN Reason Stop Dose Admin Acetaminophen 650 mg 06/24/20 00:07 Acetaminophen Tab 325 Mg Tab PO Q6HR PRN Fever and/ or Pain Hydrocodone Bitart/Acetaminophen 1 each 06/24/20 00:04 Hydrocodone/Apap 5-325mg 1 Each Tab PO TID PRN Pain Alprazolam 0.5 mg 06/24/20 00:07 Alprazolam 0.5 Mg Tab PO BID PRN Anxiety Amlodipine Besylate 2.5 mg 06/24/20 09:00 06/24/20 08:57 Amlodipine 2.5 Mg Tab PO 2.5 mg DAILY GENNY Administration Aspirin 81 mg 06/24/20 09:00 06/24/20 09:07 Aspirin 81 Mg PO 81 mg DAILY GENNY Administration Atorvastatin Calcium 80 mg 06/24/20 00:15 06/24/20 00:47 Atorvastatin 80 Mg Tab PO 80 mg HS GENNY Administration Diclofenac Sodium 1 drops 06/24/20 09:00 06/24/20 08:58 Diclofenac 0.1% Ophth Soln 2.5 Ml Btl RIGHT EYE 1 drops QID GENNY Administration Ferrous Sulfate 325 mg 06/24/20 07:30 06/24/20 08:58 Ferrous Sulfate 325 Mg Tab PO 325 mg BID-W/MEALS GENNY Administration Hydrochlorothiazide 25 mg 06/24/20 09:00 06/24/20 08:56 Hydrochlorothiazide 25 Mg Tab PO 25 mg DAILY [facility] Administration Hydromorphone HCl 1 mg 06/23/20 20:49 Hydromorphone 1 Mg/Ml 1 Ml Syringe IVP Q4HR PRN Pain Insulin Aspart 0 unit 06/24/20 07:30 06/24/20 08:49 Insulin Aspart (Novolog) 100 Unit/Ml Vial SQ Not Given ACHS [facility] Protocol Insulin Detemir 14 unit 06/24/20 21:00 Insulin Detemir (Levemir) 100 Unit/Ml Syr SQ HS [facility] Lisinopril 20 mg 06/24/20 09:00 06/24/20 08:58 Lisinopril 20 Mg Tab PO 20 mg BID [facility] Administration Lorazepam 1 mg 06/23/20 20:49 Lorazepam 2 Mg/Ml Inj IV Q4HR PRN Anxiety Pantoprazole Sodium 40 mg 06/24/20 00:15 06/24/20 00:46 Pantoprazole 40 Mg Tablet PO 40 mg HS [facility] Administration Polyethylene Glycol 17 gm 06/24/20 09:00 06/24/20 08:56 Polyethylene Glycol 3350 17 Gm Powd.Pack PO 17 gm DAILY [facility] Administration Prednisolone Acetate 1 drops 06/24/20 09:00 06/24/20 08:58 Prednisolone Acetate 1% Ophth Drops 5 Ml Btl RIGHT EYE 1 drops BID [facility] Administration Rivaroxaban 15 mg 06/24/20 00:30 06/24/20 00:47 Rivaroxaban 15 Mg Tab PO 15 mg HS [facility] Administration Spironolactone 12.5 mg 06/24/20 09:00 Spironolactone 25 Mg Tab PO DAILY [facility] Intake and Output 06/23/20 06/24/20 06/24/20 22:59 06:59 14:59 Intake Total 1200 1000 Balance 1200 1000 Intake: Amount of Fluid Infused ( 1000 ml) Intake, IV Titration 800 Amount Sodium Chloride 0.9% 1, 800 000 ml @ 100 mls/hr IV . Q10H ONE Rx#:[id number] Oral 200 200 Other: Voiding Method Bedpan Bedpan # Voids 1 Weight 60.781 kg 06/23/20 19:01 06/23/20 19:01 Assessment and Plan Assessment: #1 eye pain, recently evaluated by ophthalmology and diagnosed with iritis #2 hypertension with significant elevation in blood pressure noted with pain otherwise reasonably well-controlled #3 coronary artery disease with prior bypass surgery #4 diabetes #5 atrial fibrillation, paroxysmal #6 hyperlipidemia #7 anemia #8 carotid artery disease, status post carotid endarterectomy #9 chronic systolic congestive heart failure Plan: From cardiology perspective we will decrease lisinopril to 20 mg by mouth daily and increase Norvasc to 5 mg daily. We believe elevation in blood pressure is likely related to pain. Follow renal function and electrolytes. Further recommendations to follow. BANK RECONCILIATOR note has been reviewed, I agree with a documented findings and plan of care. Patient was seen and examined.
[2020-06-24 12:09] LABS: Anisocytosis Slight; Basophils % (A) 0 %; Eosinophils % (A) 0 %; HCT 33.9 % (34.0-46.0); Hypochromasia Marked; Lymphocytes # (A) 0.8 k/uL (1.0-4.8); Lymphocytes % (A) 12 %; MCH 27.2 pg (25.0-35.0); MCV 90.5 fL (80.0-100.0); Mean Platelet Volume 9.1; Microcytosis Slight; Monocytes # (A) 0.2 k/uL (0-1.0); Monocytes % (A) 4 %; Neutrophils # (A) 5.4 k/uL (1.3-7.7); Neutrophils % (A) 84 %; Platelet Count 217 k/uL (150-450); RBC 3.75 m/uL (3.80-5.40); RDW 19.8 % (11.5-15.5); WBC 6.5 k/uL (3.8-10.6)
[2020-06-24 12:15] LABS: HGB 10.2 gm/dL (11.4-16.0)
[2020-06-24 16:43] LABS: Glucose,Whole Blood 173 mg/dL (75-99)
[2020-06-24 20:06] LABS: Glucose,Whole Blood 147 mg/dL (75-99)
[2020-06-24] MEDS: INSULIN DETEMIR (LEVEMIR) 100 UNIT/ML SYR SQ SCH (21:08)
--- NOTE | 2020-06-24 21:39 | P.HPIM ---
History of Present Illness H&P Date: 06/24/20 Chief Complaint: Bilateral eye pain Patient is a 89-year-old female with a known history of hypertension, Diabetes type 2, paroxysmal atrial fibrillation on anticoagulation with Xarelto, coronary disease history of CABG, right carotid endarterectomy, history of CVA/TIA, hyperlipidemia and CKD stage II and previous history of smoking presents to hospital with bilateral eye pain left 200 mmHg right and was also found to have elevated blood pressure. Patient was recently admitted to hospital due to similar complaints and also severe headache as well as uncontrolled hypertension. Patient's blood pressure medications were adjusted and was discharged home yesterday. Patient presents to the hospital with bilateral eye pain and also systolic blood pressure was elevated greater than 200 mm history. Patient otherwise denied any complaints of chest pain or shortness of breath. Currently denied any headache. Patient was started back on her home blood pressure medications. Laboratory data showed WBC 6.5, hemoglobin 10.2, RDW 19.[address] head showed cerebral atrophy. No acute intracranial abnormality. No significant change compared to old exam. Patient refused to get MRI during previous admissions since she is claustrophobic. Review of Systems Constitutional: Patient denies any fever or chills . No generalized weakness or weight loss. Abdomen: Patient denied nausea vomiting and diarrhea and abdominal pain. Cardiovascular: Patient denies any chest pain or short of breath no palpitations. Respiratory: patient denied any cough or sputum production. No shortness of breath Neurologic: Patient denied any numbness or tingling headache. Musculoskeletal: Patient denies any complaints of joint swelling or deformity. Skin: Negative Psychiatric: Negative Endocrine: No heat or cold intolerance. No recent weight gain. Genitourinary: No dysuria or hematuria. All other 14 point ROS negative except the above Past Medical History Past Medical History: Atrial Fibrillation, Coronary Artery Disease (CAD), Chest Pain / Angina, Heart Failure, CVA/TIA, Diabetes Mellitus, Eye Disorder, GERD/Reflux, Hyperlipidemia, Hypertension, Myocardial Infarction (OR), Renal Disease, Syncope, Vascular Disorder Additional Past Medical History / Comment(s): Pt recently admitted to [facility] with L eye pain/optic ischemic neuropathy/TIA, EF 35% with mild aortic stenosis/mild mitral regurg. 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 Past Anesthesia/Blood Transfusion Reactions: No Reported Reaction Past Psychological History: No Psychological Hx Reported Additional Psychological History / Comment(s): Pt resides with her luis at this time. She has [facility]. She is using a walker and has a wheelchair for going to and from apartment. She no longer drives, her luis drives. Smoking Status: Former smoker Past Alcohol Use History: None Reported Additional Past Alcohol Use History / Comment(s): Pt started smoking in 1955 and quit in 2015. Past Drug Use History: None Reported Additional Drug Use History / Comment(s): Patient smoked for 60+ years. Quit in 2015 - Past Family History Mother Family Medical History: No Reported History Additional Family Medical History / Comment(s): Mother at age 82 from old age. Father Family Medical History: No Reported History Additional Family Medical History / Comment(s): Father from old age and patient does not recall his age or any medical problems. Son(s) Family Medical History: Cancer Additional Family Medical History / Comment(s): Patient has one son with history of throat cancer in remission. Patient has one daughter with no major medical problems. Patient does not have any brothers or sisters. Medications and Allergies Home Medications Medication Instructions Recorded Confirmed Type Insulin Detemir [Levemir Flextouch] 14 units SQ HS 03/02/20 06/23/20 History Linagliptin [Tradjenta] 5 mg PO DAILY 04/08/20 06/23/20 History Metoprolol Tartrate [Lopressor] 50 mg PO BID 04/08/20 06/23/20 History Pantoprazole [Protonix] 40 mg PO HS 04/08/20 06/23/20 History Rivaroxaban [Xarelto] 15 mg PO HS 04/08/20 06/23/20 History polyethylene glycoL 3350 [Miralax] 17 gm PO DAILY 04/08/20 06/23/20 History Acetaminophen Tab [Tylenol] 650 mg PO Q6HR PRN tab 04/13/20 06/23/20 Rx Diclofenac 0.1% Ophth Soln 1 drop LEFT EYE QID 05/23/20 06/23/20 History [Voltaren 0.1% Ophth Soln] Ferrous Sulfate [Iron (65 MG 325 mg PO BID 05/23/20 06/23/20 History Elemental)] Vit C/E/Zn/Coppr/Lutein/Zeaxan 1 cap PO BID 05/23/20 06/23/20 History [Preservision Areds 2 Softgel] Aspirin 81 mg PO DAILY chew 05/25/20 06/23/20 Rx Atorvastatin [Lipitor] 80 mg PO HS #30 tab 05/25/20 06/23/20 Rx Hydrocodone/Acetaminophen [Sweeden 1 tab PO TID PRN #9 tab 05/25/20 06/23/20 Rx 5-325] Spironolactone [Aldactone] 12.5 mg PO DAILY #0 05/26/20 06/23/20 Rx ALPRAZolam [Xanax] 0.5 mg PO BID 06/21/20 06/23/20 History amLODIPine [Norvasc] 2.5 mg PO DAILY #30 tab 06/23/20 06/23/20 Rx hydroCHLOROthiazide [Hydrodiuril] 25 mg PO DAILY #30 tab 06/23/20 06/23/20 Rx lisinopriL [Zestril] 20 mg PO BID #60 tab 06/23/20 06/23/20 Rx prednisoLONE ACETATE 1% OPHTH 1 drops LEFT EYE BID #5 ml 06/23/20 06/23/20 Rx [Pred Forte 1%] Allergies Allergy/AdvReac Type Severity Reaction Status Date / Time zolpidem [From Ambien] AdvReac Hallucinati Verified 06/23/20 21:06 ons Physical Exam Vitals: Vital Signs Temp Pulse Pulse Pulse Resp BP BP 06/24/20 08:51 98.1 F 76 16 132/54 06/24/20 04:50 97 146/65 06/24/20 02:07 98.3 F 78 17 151/52 06/23/20 23:05 76 16 06/23/20 22:00 77 16 160/59 06/23/20 21:30 97.6 F 64 16 165/59 06/23/20 21:08 98.2 F 76 17 159/67 06/23/20 21:00 65 16 189/65 06/23/20 20:02 68 16 203/95 06/23/20 18:01 98.3 F 72 18 140/73 Pulse Ox 06/24/20 08:51 95 06/24/20 04:50 06/24/20 02:07 96 06/23/20 23:05 06/23/20 22:00 95 06/23/20 21:30 96 06/23/20 21:08 95 06/23/20 21:00 96 06/23/20 20:02 90 L 06/23/20 18:01 96 Intake and Output 06/23/20 06/24/20 06/24/20 22:59 06:59 14:59 Intake Total 1200 1000 Balance 1200 1000 Intake: Amount of Fluid Infused ( 1000 ml) Intake, IV Titration 800 Amount Sodium Chloride 0.9% 1, 800 000 ml @ 100 mls/hr IV . Q10H ONE Rx#:[id number] Oral 200 200 Other: Voiding Method Bedpan Bedpan # Voids 1 Weight 60.781 kg PHYSICAL EXAMINATION: Patient is lying in the bed comfortably, no acute distress, awake alert and oriented.. HEENT: Normocephalic. Neck is supple. Pupils reactive. Nostrils clear. Oral cavity is moist. Ears reveal no drainage. Neck reveals no JVD, carotid bruits, or thyromegaly. CHEST EXAMINATION: Trachea is central. Symmetrical expansion. Lung brar clear to auscultation and percussion. CARDIAC: Normal S1, S2 with no gallops. No murmurs ABDOMEN: Soft. Bowel sounds normal. No organomegaly. No abdominal bruits. Extremities: reveal no edema. No clubbing or cyanosis Neurologically awake, alert, oriented x3 with well-coordinated movements. No focal deficits noted Skin: No rash or skin lesions. Psychiatric: Coperative. Nonsuicidal Musculoskeletal: No joint swelling or deformity. Normal range of motion. Results CBC & Chem 7: 06/24/20 11:30 06/24/20 11:30 Labs: Abnormal Lab Results - Last 24 Hours (Table) 06/23/20 06/23/20 06/24/20 Range/Units 19:01 19:01 06:39 WBC 11.8 H (3.8-10.6) k/uL Hct 46.9 H (34.0-46.0) % MCHC 29.7 L (31.0-37.0) g/dL RDW 19.8 H (11.5-15.5) % Neutrophils # 9.3 H (1.3-7.7) k/uL Sodium 134 L (137-145) mmol/L Potassium 5.5 H (3.5-5.1) mmol/L Carbon Dioxide 18 L (22-30) mmol/L BUN 32 H (7-17) mg/dL Creatinine 1.91 H (0.52-1.04) mg/dL Glucose 123 H (74-99) mg/dL POC Glucose (mg/dL) 154 H (75-99) mg/dL AST 43 H (14-36) U/L Thrombosis Risk Factor Assmnt - DVT/VTE Prophylaxis DVT/VTE Prophylaxis: Pharmacologic Prophylaxis ordered - Choose All That Apply Any of the Below Risk Factors Present?: No Other Risk Factors: Yes Each Risk Factor Represents 3 Points: Age 75 years or older Other congenital or acquired thrombophilia - If yes, enter type in comment: No Thrombosis Risk Factor Assessment Total Risk Factor Score: 3 Thrombosis Risk Factor Assessment Level: Moderate Risk Assessment and Plan Assessment: Hypertensive urgency on admission Bilateral eye pain due to iritis. Recently evaluated by ophthalmology. Mild hyperkalemia resolved now. Symptomatic left ICA stenosis and history of right carotid endarterectomy. Acute kidney injury improving. Paroxysmal atrial fibrillation on anticoagulation with Xarelto Diabetes type 2 with no retinopathy Bilateral macular degeneration mild Hypertension Hyperlipidemia Carotid artery with history of CABG Chronic CHF with systolic dysfunction Iron deficiency anemia currently on iron supplementation. History of TIA DVT prophylaxis patient is already on full anticoagulation. Plan: Patient was started back on amlodipine, hydrochlorothiazide, lisinopril and spironolactone. Lisinopril dose decreased to 20 mg daily. And Norvasc dose increased to 5 mg daily. Cardiology is following. Patient states that her eye pain is almost resolved now. Continue to monitor blood pressure closely. Discussed with the patient and her daughter at bedside in detail. Time with Patient: Greater than 30
[2020-06-25 06:23] LABS: Glucose,Whole Blood 88 mg/dL (75-99)
[2020-06-25 08:32] LABS: Calcium 9.2 mg/dL (8.4-10.2); Potassium 3.8 mmol/L (3.5-5.1)
[2020-06-25] MEDS: INSULIN ASPART (NovoLOG) 100 UNIT/ML VIAL SQ SCH ×4 (08:35→20:22)
[2020-06-25 08:43] VITALS: RESP 16
[2020-06-25] MEDS: SPIRONOLACTONE 25 MG TAB PO SCH (08:45)
[2020-06-25] MEDS: hydroCHLOROthiazide 25 MG TAB PO SCH (08:45)
[2020-06-25] MEDS: FERROUS SULFATE 325 MG TAB PO SCH ×2 (08:45→17:23)
[2020-06-25] MEDS: ASPIRIN 81 MG PO SCH (08:45)
[2020-06-25] MEDS: polyethylene glycoL 3350 17 GM POWD.PACK PO SCH (08:45)
[2020-06-25] MEDS: DICLOFENAC 0.1% OPHTH SOLN 2.5 ML BTL RIGHT EYE SCH ×4 (08:46→20:41)
[2020-06-25] MEDS: lisinopriL 20 MG TAB PO SCH (08:46)
[2020-06-25] MEDS: prednisoLONE ACETATE 1% OPHTH DROPS 5 ML BTL RIGHT EYE SCH ×2 (08:47→20:41)
[2020-06-25] MEDS ORDERED: amLODIPine 5 MG TAB PO SCH ×2 (09:00→12:15)
[2020-06-25 11:43] LABS: Glucose,Whole Blood 79 mg/dL (75-99)
--- NOTE | 2020-06-25 12:12 | P.PN ---
Subjective Progress Note Date: 06/25/20 This is a pleasant 89-year-old female patient who follows with Dr. Colin in the office. She has a past medical history significant for paroxysmal atrial fibrillation, coronary artery disease with prior bypass surgery with FRIEDMAN to LAD, SVG to RCA in , hyperlipidemia, carotid artery disease status post endarterectomy, hypertension, diabetes, prior GI bleed, chronic vertigo. She was recently in the hospital with complaints of bilateral eye pain and severe headache as well as significant hypertension. Medications were adjusted and blood pressure was well-controlled and she was discharged yesterday. She returned to the emergency department with similar Similar complaints of bilateral eye pain with the left worse than the right. During previous admission she was diagnosed with left iritis and started on eyedrops. She was feeling well then developed eye pain again at home. Blood pressure initially on presentation was 140/73 with a repeat of 203/95 hours later. She is currently on lisinopril 20 mg by mouth twice a day, hydrochlorothiazide 25 mg by mouth daily, amlodipine 2.5 mg daily, Aldactone 12.5 mg by mouth daily, Lopressor 50 mg by mouth twice a day, aspirin 81 mg daily and Xarelto. Upon examination she is resting comfortably in bed. Her pain has improved but her eyes still feel irritated. Pressure is better controlled. Labs on admission showed worsening renal function and potassium 5.5. 06/25/2020 On examination the patient is resting comfortably in bed. She has no current complaints other than weakness in her legs. According the nursing staff the patient has been quite confused and agitated at times through the night and this morning. She is currently on lisinopril 20 mg by mouth daily, hydrochlorothiazide 25 mg by mouth daily, amlodipine 5 mg by mouth daily, Aldactone 12.5 mg by mouth daily and Lopressor 50 mg by mouth twice a day. Labs this morning show potassium 3.8, BUN 32 and creatinine 1.45. Blood pressure has been elevated this morning initially 200/82 and couple hours. Post medication administration 190/81. The patient was not in any pain at the time of blood pressure check and was not agitated at this time. Objective - Vital Signs Vital signs: Vital Signs Temp 98.2 F 06/25/20 08:39 Pulse 70 06/25/20 08:39 Resp 16 06/25/20 08:39 BP 190/81 06/25/20 11:24 Pulse Ox 97 06/25/20 08:39 Intake & Output 06/24/20 06/25/20 06/25/20 18:59 06:59 18:59 Intake Total 572 530 Balance 572 530 Intake: Intake, IV Titration 160 Amount Sodium Chloride 0.9% 1, 160 000 ml @ 100 mls/hr IV . Q10H ONE Rx#:[id number] Oral 472 370 Other 100 Other: Voiding Method Bedpan Bedside Commode Toilet Bedpan # Voids 1 1 1 - Exam PHYSICAL EXAMINATION: HEENT: Head is atraumatic, normocephalic. Pupils equal, round. Neck is supple. There is no elevated jugular venous pressure. HEART EXAMINATION: Heart sounds regular, S1 and S2 with a systolic murmur. CHEST EXAMINATION: Lungs are clear to auscultation. No chest wall tenderness is noted on palpation or with deep breathing. ABDOMEN: Soft, nontender. Bowel sounds are heard. No organomegaly noted. EXTREMITIES: 2+ peripheral pulses with no evidence of peripheral edema and no calf tenderness noted. NEUROLOGIC patient is awake, alert and oriented x2-3. . - Labs CBC & Chem 7: 06/24/20 11:30 06/25/20 07:58 Labs: Abnormal Lab Results - Last 24 Hours (Table) 06/24/20 06/24/20 06/24/20 Range/Units 11:30 11:30 16:40 RBC 3.75 L (3.80-5.40) m/uL Hgb 10.2 L D (11.4-16.0) gm/dL Hct 33.9 L (34.0-46.0) % MCHC 30.0 L (31.0-37.0) g/dL RDW 19.8 H (11.5-15.5) % Lymphocytes # 0.8 L (1.0-4.8) k/uL Sodium 135 L (137-145) mmol/L Chloride (98-107) mmol/L Carbon Dioxide 21 L (22-30) mmol/L BUN 33 H (7-17) mg/dL Creatinine 1.31 H (0.52-1.04) mg/dL Glucose 131 H (74-99) mg/dL POC Glucose (mg/dL) 173 H (75-99) mg/dL 06/24/20 06/25/20 Range/Units 20:04 07:58 RBC (3.80-5.40) m/uL Hgb (11.4-16.0) gm/dL Hct (34.0-46.0) % MCHC (31.0-37.0) g/dL RDW (11.5-15.5) % Lymphocytes # (1.0-4.8) k/uL Sodium (137-145) mmol/L Chloride 109 H (98-107) mmol/L Carbon Dioxide (22-30) mmol/L BUN 32 H (7-17) mg/dL Creatinine 1.45 H (0.52-1.04) mg/dL Glucose (74-99) mg/dL POC Glucose (mg/dL) 147 H (75-99) mg/dL Assessment and Plan Assessment: #1 eye pain, recently evaluated by ophthalmology and diagnosed with iritis #2 hypertension, currently uncontrolled #3 coronary artery disease with prior bypass surgery #4 diabetes #5 atrial fibrillation, paroxysmal #6 hyperlipidemia #7 anemia #8 carotid artery disease, status post carotid endarterectomy #9 chronic systolic congestive heart failure Plan: From cardiology perspective we will increase Norvasc to 5 mg twice daily. Follow renal function and electrolytes. We will continue to follow the patient provide further recommendations accordingly. PACKAGE DESIGNER note has been reviewed, I agree with a documented findings and plan of care. Patient was seen and examined.
[2020-06-25] MEDS ORDERED: amLODIPine 5 MG TAB PO STA (12:23)
[2020-06-25 16:41] LABS: Glucose,Whole Blood 137 mg/dL (75-99)
[2020-06-25 20:20] LABS: Glucose,Whole Blood 98 mg/dL (75-99)
[2020-06-25] MEDS: INSULIN DETEMIR (LEVEMIR) 100 UNIT/ML SYR SQ SCH (20:40)
[2020-06-25] MEDS: ATORVASTATIN 80 MG TAB PO SCH (20:41)
[2020-06-25] MEDS: RIVAROXABAN 15 MG TAB PO SCH (20:41)
[2020-06-25] MEDS: PANTOPRAZOLE 40 MG TABLET PO SCH (20:41)
--- NOTE | 2020-06-25 21:09 | P.PN ---
Subjective Progress Note Date: 06/25/20 Principal diagnosis: Hypertensive urgency Patient is a 89-year-old female with a known history of hypertension, Diabetes type 2, paroxysmal atrial fibrillation on anticoagulation with Xarelto, coronary disease history of CABG, right carotid endarterectomy, history of CVA/TIA, hyperlipidemia and CKD stage II and previous history of smoking presents to [facility] with bilateral eye pain left 200 mmHg right and was also found to have elevated blood pressure. Patient was recently admitted to hospital due to similar complaints and also severe headache as well as uncontrolled hypertension. Patient's blood pressure medications were adjusted and was disch arged home yesterday. Patient presents to the hospital with bilateral eye pain and also systolic blood pressure was elevated greater than 200 mm history. Patient otherwise denied any complaints of chest pain or shortness of breath. Currently denied any headache. Patient was started back on her home blood pressure medications. Laboratory data showed WBC 6.5, hemoglobin 10.2, RDW 19.[address] head showed cerebral atrophy. No acute intracranial abnormality. No significant change compared to old exam. Patient refused to get MRI during previous admissions since she is claustrophobic. 06/25/2020 Patient is currently sitting in the chair comfortably. No complaints of chest pain or shortness of breath. Patient was anxious and agitated this morning and blood pressure was elevated with SBP around 200 and on his in the morning. No fever no chills. Laboratory data showed BUN 32 and creatinine 1.45. Blood sugar is 88. Currently being continued on Norvasc, hydrochlorothiazide, lisinopril and Aldactone. Norvasc dose increased to twice daily. Cardiology is following. Current medications reviewed. Objective - Vital Signs Vital signs: Vital Signs Temp 97.8 F 06/25/20 19:06 Pulse 72 06/25/20 19:06 Resp 16 06/25/20 19:06 BP 181/55 06/25/20 19:35 Pulse Ox 99 06/25/20 19:06 Intake & Output 06/25/20 06/25/20 06/26/20 06:59 18:59 06:59 Intake Total 530 Balance 530 Intake: Intake, IV Titration 160 Amount Sodium Chloride 0.9% 1, 160 000 ml @ 100 mls/hr IV . Q10H ONE Rx#:[id number] Oral 370 Other: Voiding Method Bedside Commode Toilet Toilet Bedpan # Voids 1 1 - Exam PHYSICAL EXAMINATION: Patient is lying in the bed comfortably, no acute distress, awake alert and orie nted.. HEENT: Normocephalic. Neck is supple. Pupils reactive. Nostrils clear. Oral cavity is moist. Ears reveal no drainage. Neck reveals no JVD, carotid bruits, or thyromegaly. CHEST EXAMINATION: Trachea is central. Symmetrical expansion. Lung brar clear to auscultation and percussion. CARDIAC: Normal S1, S2 with no gallops. No murmurs ABDOMEN: Soft. Bowel sounds normal. No organomegaly. No abdominal bruits. Extremities: reveal no edema. No clubbing or cyanosis Neurologically awake, alert, oriented x3 with well-coordinated movements. No focal deficits noted Skin: No rash or skin lesions. Psychiatric: Coperative. Nonsuicidal Musculoskeletal: No joint swelling or deformity. Normal range of motion. - Labs CBC & Chem 7: 06/24/20 11:30 06/25/20 07:58 Labs: Abnormal Lab Results - Last 24 Hours (Table) 06/25/20 06/25/20 Range/Units 07:58 16:38 Chloride 109 H (98-107) mmol/L BUN 32 H (7-17) mg/dL Creatinine 1.45 H (0.52-1.04) mg/dL POC Glucose (mg/dL) 137 H (75-99) mg/dL Assessment and Plan Assessment: Hypertensive urgency on admission Bilateral eye pain due to iritis. Recently evaluated by ophthalmology. Mild hyperkalemia resolved now. Symptomatic left ICA stenosis and history of right carotid endarterectomy. Acute kidney injury improving. Paroxysmal atrial fibrillation on anticoagulation with Xarelto Diabetes type 2 with no retinopathy Bilateral macular degeneration mild Hypertension Hyperlipidemia Carotid artery with history of CABG Chronic CHF with systolic dysfunction Iron deficiency anemia currently on iron supplementation. History of TIA DVT prophylaxis patient is already on full anticoagulation. Plan: Patient was started back on amlodipine, hydrochlorothiazide, lisinopril and spironolactone. Lisinopril dose decreased to 20 mg daily. And Norvasc dose increased to 5 mg Twice daily. Cardiology is following. Patient states that her eye pain is resolved now. Continue to monitor blood pressure closely. Discussed with the patient and her daughter at bedside in detail. Time with Patient: Greater than 30
[2020-06-26 06:16] LABS: Anisocytosis Slight; Basophils % (A) 0 %; Eosinophils % (A) 2 %; HCT 37.2 % (34.0-46.0); HGB 11.3 gm/dL (11.4-16.0); Hypochromasia Moderate; Lymphocytes % (A) 18 %; MCH 27.2 pg (25.0-35.0); MCHC 30.5 g/dL (31.0-37.0); MCV 89.4 fL (80.0-100.0); Microcytosis Slight; Monocytes % (A) 10 %; Neutrophils % (A) 69 %; Platelet Count 205 k/uL (150-450); RBC 4.16 m/uL (3.80-5.40); RDW 19.5 % (11.5-15.5); WBC 7.4 k/uL (3.8-10.6)
[2020-06-26 06:17] LABS: Eosinophils # (A) 0.1 k/uL (0-0.7); Lymphocytes # (A) 1.3 k/uL (1.0-4.8); Monocytes # (A) 0.7 k/uL (0-1.0); Neutrophils # (A) 5.1 k/uL (1.3-7.7)
[2020-06-26 07:21] LABS: Glucose,Whole Blood 81 mg/dL (75-99)
[2020-06-26] MEDS: INSULIN ASPART (NovoLOG) 100 UNIT/ML VIAL SQ SCH ×2 (07:30→11:28)
[2020-06-26] MEDS: FERROUS SULFATE 325 MG TAB PO SCH (07:34)
[2020-06-26] MEDS: lisinopriL 20 MG TAB PO SCH (07:34)
[2020-06-26] MEDS: SPIRONOLACTONE 25 MG TAB PO SCH (07:34)
[2020-06-26] MEDS: ASPIRIN 81 MG PO SCH (07:34)
[2020-06-26] MEDS: hydroCHLOROthiazide 25 MG TAB PO SCH (07:34)
[2020-06-26] MEDS: prednisoLONE ACETATE 1% OPHTH DROPS 5 ML BTL RIGHT EYE SCH (07:35)
[2020-06-26] MEDS: polyethylene glycoL 3350 17 GM POWD.PACK PO SCH (07:35)
[2020-06-26] MEDS: DICLOFENAC 0.1% OPHTH SOLN 2.5 ML BTL RIGHT EYE SCH ×2 (07:35→12:57)
[2020-06-26 07:47] VITALS: TEMP 98.7
[2020-06-26] MEDS ORDERED: amLODIPine 5 MG TAB PO SCH (09:00)
--- NOTE | 2020-06-26 09:18 | P.PN ---
Subjective Progress Note Date: 06/26/20 Principal diagnosis: Hypertension This is a very pleasant 89-year-old female patient was admitted to the hospital was I pain and uncontrolled blood pressure. She is known to have coronary artery disease as well as diabetes and paroxysmal atrial fibrillation. She was seen today June [id number]. She is asymptomatic from the cardiovascular standpoint of view. She still hypertensive. I'm going to increase the dose of lisinopril to 30 mg by mouth daily. The kidney function blood work is not back as of yet. Objective - Vital Signs Vital signs: Vital Signs Temp 98.7 F 06/26/20 07:46 Pulse 74 06/26/20 07:46 Resp 16 06/26/20 07:46 BP 150/62 06/26/20 07:46 Pulse Ox 98 06/26/20 07:46 Intake & Output 06/25/20 06/26/20 06/26/20 18:59 06:59 18:59 Other: Voiding Method Toilet Toilet # Voids 1 1 - Constitutional General appearance: Present: no acute distress - Respiratory Respiratory: bilateral: CTA - Cardiovascular Rhythm: regular Heart sounds: normal: S1, S2 - Labs CBC & Chem 7: 06/26/20 05:20 06/25/20 07:58 Labs: Abnormal Lab Results - Last 24 Hours (Table) 06/25/20 06/26/20 Range/Units 16:38 05:20 Hgb 11.3 L (11.4-16.0) gm/dL MCHC 30.5 L (31.0-37.0) g/dL RDW 19.5 H (11.5-15.5) % POC Glucose (mg/dL) 137 H (75-99) mg/dL Assessment and Plan Assessment: Assessment #1 and IV pain #2 hypertension #3 multiple comorbid conditions Plan #1 increase the dose of lisinopril #2 follow-up with the patient
[2020-06-26 10:58] LABS: African American GFR (CKD) 46.7 (60.0-200.0); Anion Gap 6.6 mmol/L (4.00-12.00); BUN/Creat Ratio 24.17 Ratio (12.00-20.00); Calcium 9.2 mg/dL (8.7-10.3); Carbon Dioxide 26.4 mmol/L (21.6-31.8); Non-African American GFR(CKD) 40.3 (60.0-200.0)
[2020-06-26 11:27] LABS: Glucose,Whole Blood 87 mg/dL (75-99)
[2020-06-26 13:22] VITALS: BP 179/62; PULSE 85
[2020-06-26] MEDS ORDERED: METOPROLOL TARTRATE 50 MG TAB PO SCH (13:30)
[2020-06-26 14:05] LABS: Appearance,Urine Clear (Clear); Bacteria,Urine Rare /hpf; Bilirubin,Urine Negative (Negative); Blood,Urine Trace (Negative); Color,Urine Light Yellow; Glucose,Urine (UA) Negative (Negative); Ketones,Urine Trace (Negative); Leukocyte Esterase,Urine Small (Negative); Nitrite,Urine Negative (Negative); PH, Urine 6.5 (5.0-8.0); Protein,Urine Trace (Negative); RBC,Urine 1 /hpf (0-5); Specific Gravity,Urine 1.006 (1.001-1.035); Squamous Epithelial Cell,Urine <1 /hpf (0-4); Urobilinogen,Urine <2.0 mg/dL (<2.0); WBC,Urine 21 /hpf (0-5)
--- NOTE | 2020-06-26 14:17 | P.PN ---
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 Patient presented to hospital with bilateral eye pain and headache, uncontrolled hypertension with systolic blood pressure greater than 200. Laboratory data showed WBC 6.5, hemoglobin 10.2. CT head showed cerebral atrophy. No acute intracranial abnormality. No significant change compared to old exam. Patient refused to get MRI during previous admissions since she is claustrophobic. Patient was resumed back on her home blood pressure medications. Patient was seen by cardiology and Dr. Vaca increased lisinopril dose this morning. Patient is currently on a mlodipine 5 mg twice daily, hydrochlorothiazide 25 mg daily, lisinopril 30 mg daily, spironolactone 12.5 mg daily. Patient is complaining of urinary frequency and urinalysis with reflex culture ordered. Blood pressure this morning was 150/62, pulse ox 98% on room air, heart rate 74, afebrile. Repeat blood work reveals WBC 7.4, hemoglobin 11.3, platelet count 205. Electrolytes normal, BUN 29 and creatinine 1.2. Blood sugars running between 69 and 98. Patient will be resumed back on Lopressor and discharged home. She will not need to wait for urinalysis report and this will be followed up as an outpatient. Discharge diagnoses: Hypertensive urgency on admission Bilateral eye pain due to iritis. Recently evaluated by ophthalmology. Mild hyperkalemia resolved now. Symptomatic left ICA stenosis and history of right carotid endarterectomy. Acute kidney injury, chronic kidney disease stage III. Paroxysmal atrial fibrillation on anticoagulation with Xarelto Diabetes type 2 with no retinopathy Bilateral macular degeneration mild Hypertension Hyperlipidemia Carotid artery with history of CABG Chronic systolic heart failure Iron deficiency anemia currently on iron supplementation. History of TIA Discharge plan: Home with home care Impression and plan of care have been directed as dictated by the signing physician. Nataliia Alejo nurse practitioner acting as scribe for signing physician. Objective - Vital Signs Vital signs: Vital Signs Temp 98.7 F 06/26/20 07:46 Pulse 74 06/26/20 07:46 Resp 16 06/26/20 07:46 BP 150/62 06/26/20 07:46 Pulse Ox 98 06/26/20 07:46 Intake & Output 06/25/20 06/26/20 06/26/20 18:59 06:59 18:59 Other: Voiding Method Toilet Toilet # Voids 1 1 - Exam Review of Systems Constitutional: Reports chronic headaches, Reports fatigue, Reports malaise, Reports weakness, Denies anorexia, Denies weight gain, Denies weight loss Eyes: bilateral blurred vision, bilateral decreased vision, bilateral pain Ears, nose, mouth and throat: Denies dysphagia, Denies neck lump, Denies sore throat Cardiovascular: Reports decreased exercise tolerance, Reports dyspnea on exertio n, Reports shortness of breath, Denies chest pain, Denies leg edema, Denies lightheadedness, Denies rapid heart beat, Denies syncope Respiratory: Denies congestion, Denies cough, Denies cough with sputum, Denies home oxygen, Denies sleep apnea, Denies snoring, Denies wheezing Gastrointestinal: Reports loss of appetite, Denies abdominal pain, Denies bloating, Denies BRBPR, Denies heartburn, Denies melena, Denies nausea, Denies vomiting Genitourinary: Denies dysuria, Denies nocturia Menstruation: Reports postmenopausal Musculoskeletal: Denies myalgias Musculoskeletal: absent: ankle pain, ankle stiffness, ankle swelling, elbow pain, elbow stiffness, elbow swelling, foot pain, foot stiffness, foot swelling, hand pain, hand stiffness, hand swelling, hip pain, hip stiffness, hip swelling, knee pain, knee stiffness, knee swelling, shoulder pain, shoulder stiffness, shoulder swelling, wrist pain, wrist stiffness, wrist swelling Integumentary: Denies pruritus, Denies rash Neurological: Reports confusion, Reports gait dysfunction, Reports numbness, Reports weakness Psychiatric: Reports anxiety, Reports depression, Denies sadness/tearfulness, Denies sleep disturbances, Denies suicidal ideation Endocrine: Denies fatigue, Denies weight change Physical examination: HEENT: Head is atraumatic, normocephalic, pupils were equal round reactive to light and accommodations, extraocular muscle movement were intact. Oral mucous membranes are dry patient sounded to the upper and lower lip. Neck: Supple, no JVP, decreased carotid upstroke bilaterally. Chest: Decreased breath sounds at the bases, there is no chest wall tenderness no intercostal retractions there is no expiratory wheezes. Heart: First heart sound is depressed, second heart sounds normal, there is systolic murmur 2/6 located at the right second intercostal space related to the base of the neck per Abdomen: Soft, nontender, nondistended, positive bowel sounds. Extremities: No pedal edema bilaterally, dorsalis pedis palpable bilaterally. No calf tenderness. Neurologic examination: Patient is awake and alert and oriented 3. No focal neuro deficits. Cranial nerves III-12 appear grossly intact. - Labs CBC & Chem 7: 06/26/20 05:20 06/26/20 05:20 Labs: Abnormal Lab Results - Last 24 Hours (Table) 06/25/20 06/26/20 06/26/20 Range/Units 16:38 05:20 05:20 Hgb 11.3 L (11.4-16.0) gm/dL MCHC 30.5 L (31.0-37.0) g/dL RDW 19.5 H (11.5-15.5) % BUN 29.0 H (9.0-27.0) mg/dL Est GFR (CKD-EPI)AfAm 46.7 L (60.0-200.0) Est GFR (CKD-EPI)NonAf 40.3 L (60.0-200.0) BUN/Creatinine Ratio 24.17 H (12.00-20.00) Ratio Glucose 69 L (70-110) mg/dL POC Glucose (mg/dL) 137 H (75-99) mg/dL Assessment and Plan Plan: 1. Hypertensive urgency associated with severe headache and bilateral eye pain. Continue amlodipine 5 mg twice daily, hydrochlorothiazide 25 mg daily, lisinopril 30 mg daily, spironolactone 12.5 mg daily. Consult cardiology appreciated. Lisinopril was increased this morning. 2. 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 Continue diclofenac eyedrops 0.1% apply 4 times every day, patient also was seen ophthalmology, he was recommended to monitor the patient very closely, along with a recent diagnosis of adult macular degeneration for which she was started on Pred Forte. 3. Paroxysmal atrial fibrillation. Continue Xarelto 15 mg orally once every day. 4. History of coronary artery disease status post three-vessel CABG in 1995. Continue Lipitor 80 mg every day. 5. Carotid artery disease status post carotid endarterectomy. Stable patient has had a CTA of the carotid arteries in the past. 6. Diabetes mellitus type 2, insulin requiring. Continue Levemir 14 units at bedtime and NovoLog scale before meals and at bedtime, Accu-Chek before each meal and at bedtime along with a sliding scale insulin. 7. 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 Continue as in #1 8. Hyperlipidemia. Continue Lipitor. 9. Chronic vertigo. Stable. 10. Gastroesophageal reflux disease. Continue Protonix 40 mg daily. 11. DVT prophylaxis. Currently on Xarelto 15 mg orally once every day. 12. GI prophylaxis. Continue patient on Protonix 40 mg orally once every day. 13. Possible UTI. Urine and reflex culture ordered. 14. Patient is no code. Discharge plan: Home with [facility] Impression and plan of care have been directed as dictated by the signing physician. Nataliia Alejo nurse practitioner acting as scribe for signing physician.
[2020-06-27] MEDS ORDERED: lisinopriL 10 MG TAB PO SCH (09:00)
== END 2020-06-26 14:03 | disposition home health service (06) | DRG 305 ==
LOC: EC 17:45 → 1SOBS 20:49 → 4SSUR 06-25 17:01 → OBSVTOIN 06-26 12:59
PROVIDERS: ADMIT Internal Medicine; ATTEND Internal Medicine
DX: I16.0 Hypertensive urgency (principal); I50.22 Chronic systolic (congestive) heart failure; N17.9 Acute kidney failure, unspecified; H20.9 Unspecified iridocyclitis; E11.40 Type 2 diabetes mellitus with diabetic neuropathy, unspecified; E11.22 Type 2 diabetes mellitus with diabetic chronic kidney disease; E78.5 Hyperlipidemia, unspecified; D50.9 Iron deficiency anemia, unspecified; I13.0 Hypertensive heart and chronic kidney disease with heart failure and stage 1 through stage 4 chronic kidney disease, or unspecified chronic kidney disease; I48.0 Paroxysmal atrial fibrillation; Z79.4 Long term (current) use of insulin; I08.0 Rheumatic disorders of both mitral and aortic valves; I25.10 Atherosclerotic heart disease of native coronary artery without angina pectoris; K55.20 Angiodysplasia of colon without hemorrhage; K21.9 Gastro-esophageal reflux disease without esophagitis; E87.5 Hyperkalemia; N18.30 Chronic kidney disease, stage 3 unspecified; I65.22 Occlusion and stenosis of left carotid artery; H35.30 Unspecified macular degeneration; F40.240 Claustrophobia; I25.2 Old myocardial infarction; R26.9 Unspecified abnormalities of gait and mobility; Z79.01 Long term (current) use of anticoagulants; Z79.82 Long term (current) use of aspirin; Z79.899 Other long term (current) drug therapy; Z87.891 Personal history of nicotine dependence; Z86.73 Personal history of transient ischemic attack (TIA), and cerebral infarction without residual deficits; Z90.89 Acquired absence of other organs; Z95.1 Presence of aortocoronary bypass graft; Z87.81 Personal history of (healed) traumatic fracture; Z87.19 Personal history of other diseases of the digestive system; Z86.79 Personal history of other diseases of the circulatory system; Z98.890 Other specified postprocedural states; Z88.8 Allergy status to other drugs, medicaments and biological substances; Z80.8 Family history of malignant neoplasm of other organs or systems
CPT/HCPCS: 36415; 70450; 80048; 80053; 81001; 83735; 84100; 85025; 85652; 86140; 87077; 87086; 87186; 96361; 96374; 96375; 99285

== ENCOUNTER 2020-08-26 08:41 | Emergency (ER) | payer MEDICARE, BC ==
[2020-08-26 08:55] VITALS: TEMP 98.3
[2020-08-26] MEDS ORDERED: SODIUM CHLORIDE 0.9% 1,000 ML IV STA (09:04)
[2020-08-26] MEDS ORDERED: hydrALAZINE HCL 20 MG/ML 1 ML VIAL IVP STA (09:07)
[2020-08-26 09:25] LABS: Basophils # (A) 0.1 k/uL (0-0.2); Basophils % (A) 1 %; Eosinophils # (A) 0.4 k/uL (0-0.7); Eosinophils % (A) 3 %; HCT 40.5 % (34.0-46.0); HGB 12.6 gm/dL (11.4-16.0); Hypochromasia Slight; Lymphocytes # (A) 1.3 k/uL (1.0-4.8); Lymphocytes % (A) 12 %; MCH 29.3 pg (25.0-35.0); MCHC 31.1 g/dL (31.0-37.0); MCV 94.1 fL (80.0-100.0); Mean Platelet Volume 8.8; Monocytes # (A) 0.6 k/uL (0-1.0); Monocytes % (A) 5 %; Neutrophils # (A) 8.3 k/uL (1.3-7.7); Neutrophils % (A) 77 %; Platelet Count 253 k/uL (150-450); WBC 10.8 k/uL (3.8-10.6)
[2020-08-26 09:29] LABS: INR 1.2 (<1.2); Partial Thromboplastin Time 31.3 sec (22.0-30.0); Prothrombin Time 12.1 sec (9.0-12.0)
[2020-08-26 09:32] LABS: Calcium 9.2 mg/dL (8.4-10.2); Magnesium 2.3 mg/dL (1.6-2.3); Potassium 5.2 mmol/L (3.5-5.1); Total Bilirubin 0.8 mg/dL (0.2-1.3)
--- NOTE | 2020-08-26 09:37 | ED ---
Weakness HPI - General Source: patient, EMS, RN notes reviewed Mode of arrival: EMS Limitations: no limitations <Walter Jordan - Last Filed: 08/26/20 12:13> <Edwardo Willams - Last Filed: 08/26/20 12:34> - General Chief complaint: Weakness Stated complaint: Nausea, Diahrea Time Seen by Provider: 08/26/20 08:59 - History of Present Illness Initial comments: This an 89-year-old female presents emergency Department chief complaint of diarrhea. Patient states started yesterday with one episode states that she had to this morning where she states that it came on so suddenly she cannot make it to the bathroom. Patient denies any localized abdominal pain denies fevers chills dysuria hematuria chest pain shortness of breath. Patient states she just feels a little fatigued today. No sick contacts. Patient states she did not take her morning medications. Patient offers no other associated complaints. (Walter Jordan) - Related Data Home Medications Medication Instructions Recorded Confirmed Insulin Detemir [Levemir Flextouch] 14 units SQ HS@219903/02/20 08/26/20 Linagliptin [Tradjenta] 5 mg PO DAILY@1000 04/08/20 08/26/20 Metoprolol Tartrate [Lopressor] 50 mg PO BID@1000,219904/08/20 08/26/20 Pantoprazole [Protonix] 40 mg PO HS@2200 04/08/20 08/26/20 Rivaroxaban [Xarelto] 15 mg PO HS@22004/08/20 08/26/20 Diclofenac 0.1% Ophth Soln 1 drop LEFT EYE BID@1000,169905/23/20 08/26/20 [Voltaren 0.1% Ophth Soln] Ferrous Sulfate [Iron (65 MG 325 mg PO BID@1000,169905/23/20 08/26/20 Elemental)] Vit C/E/Zn/Coppr/Lutein/Zeaxan 1 cap PO BID@1000,0 05/23/20 08/26/20 [Preservision Areds 2 Softgel] ALPRAZolam [Xanax] 0.5 mg PO BID@1000,219906/21/20 08/26/20 Acetaminophen Tab [Tylenol] 650 mg PO Q6HR 08/26/20 08/26/20 Aspirin 81 mg PO DAILY@1000 08/26/20 08/26/20 Atorvastatin [Lipitor] 80 mg PO HS@2200 08/26/20 08/26/20 Cranberry Fruit Extract [Cranberry] 1,000 mg PO DAILY@1700 08/26/20 08/26/20 Spironolactone [Aldactone] 25 mg PO DAILY PRN 08/26/20 08/26/20 amLODIPine [Norvasc] 2.5 mg PO DAILY 08/26/20 08/26/20 hydroCHLOROthiazide [Hydrodiuril] 25 mg PO DAILY PRN 08/26/20 08/26/20 lisinopriL 30 mg PO DAILY@2200 08/26/20 08/26/20 Previous Rx's Medication Instructions Recorded Hydrocodone/Acetaminophen [[place] 1 tab PO TID PRN #9 tab 05/25/20 5-325] Allergies Allergy/AdvReac Type Severity Reaction Status Date / Time zolpidem [From Ambien] AdvReac Hallucinati Verified 08/26/20 08:52 ons Review of Systems ROS Other: All systems not noted in ROS Statement are negative. <Walter Jordan - Last Filed: 08/26/20 12:13> ROS Other: All systems not noted in ROS Statement are negative. <Edwardo Willams - Last Filed: 08/26/20 12:34> ROS Statement: Those systems with pertinent positive or pertinent negative responses have been documented in the HPI. Past Medical History Past Medical History: Atrial Fibrillation, Coronary Artery Disease (CAD), Chest Pain / Angina, Heart Failure, CVA/TIA, Diabetes Mellitus, Eye Disorder, GERD/Reflux, Hyperlipidemia, Hypertension, Myocardial Infarction ([place]), Renal Disease, Syncope, Vascular Disorder Additional Past Medical History / Comment(s): Pt recently admitted to [facility] with L eye pain/optic ischemic neuropathy/TIA, EF 35% with mild aortic stenosis/mild mitral regurg. Other hx: IDDM type II, CKD stage II, TIAs, vertigo, weakness, gait disturbance/falls, bilateral hip and gluteal pain, paroxysmal A fib, anemia, L caratid disease 70%, hx of AVM of the cecum with cox plasma, ane kenzie, macular degeneration bilaterally, L eye pain/optic ischemia, poor vision Last Myocardial Infarction Date:: 2017 History of Any Multi-Drug Resistant Organisms: None Reported Past Surgical History: Adenoidectomy, Coronary Bypass/CABG, Heart Catheterization, Orthopedic Surgery, Tonsillectomy Additional Past Surgical History / Comment(s): EGD, colonoscopies, 3 vessel CABG 1995 in [place], R carotid endartectomy 2015, ORIF L ankle d/t fracture. Past Anesthesia/Blood Transfusion Reactions: No Reported Reaction Past Psychological History: No Psychological Hx Reported Smoking Status: Former smoker Past Alcohol Use History: None Reported Past Drug Use History: None Reported - Past Family History Mother Family Medical History: No Reported History Additional Family Medical History / Comment(s): Mother at age 82 from old age. Father Family Medical History: No Reported History Additional Family Medical History / Comment(s): Father from old age and patient does not recall his age or any medical problems. Son(s) Family Medical History: Cancer Additional Family Medical History / Comment(s): Patient has one son with history of throat cancer in remission. Patient has one daughter with no major medical problems. Patient does not have any brothers or sisters. <Walter Jordan - Last Filed: 08/26/20 12:13> General Exam Limitations: no limitations General appearance: alert, in no apparent distress, other (Vitals were reviewed patient does have moderate hypertension) Head exam: Present: atraumatic, normocephalic, normal inspection Eye exam: Present: normal appearance, PERRL, EOMI. Absent: scleral icterus, conjunctival injection, periorbital swelling ENT exam: Present: mucous membranes moist Neck exam: Present: normal inspection, full ROM. Absent: tenderness, meningis mus, lymphadenopathy Respiratory exam: Present: normal lung sounds bilaterally. Absent: respiratory distress, wheezes, rales, rhonchi, stridor Cardiovascular Exam: Present: regular rate, normal rhythm, normal heart sounds. Absent: systolic murmur, diastolic murmur, rubs, gallop, clicks GI/Abdominal exam: Present: soft, normal bowel sounds. Absent: distended, tenderness (No localized tenderness), guarding, rebound, rigid Back exam: Absent: CVA tenderness (R), CVA tenderness (L) Neurological exam: Present: alert, oriented X3 Skin exam: Present: warm, dry, intact, normal color. Absent: rash <Dedoe,Walter M - Last Filed: 08/26/20 12:13> Course <Edwardo Willams - Last Filed: 08/26/20 12:34> Vital Signs 08/26/20 08/26/20 08/26/20 08:52 09:43 10:39 Temperature 98.3 F Pulse Rate 61 58 L 62 Respiratory 18 18 18 Rate Blood Pressure 209/112 185/50 179/52 O2 Sat by Pulse 99 98 98 Oximetry 08/26/20 11:30 Temperature Pulse Rate 72 Respiratory 16 Rate Blood Pressure 188/56 O2 Sat by Pulse 100 Oximetry - Reevaluation(s) Reevaluation #1: 08/26/20 12:32 PA supervision: I personally evaluate this case patient present with complaints of weakness and diarrhea. The clinical appearance is that of dehydration. No focal deficits. Lab work does correlate with this. Patient will be discharged after fluids. She feels much improved. (Edwardo Willams) EKG Findings - EKG Comments: EKG Findings:: EKG performed at 8:51 sinus bradycardia with rate of 59 MD 190 QRS 92 QT/ QTC 420/415 <Walter Jordan - Last Filed: 08/26/20 12:13> Medical Decision Making - Lab Data Result diagrams: 08/26/20 09:00 08/26/20 09:00 <Walter Jordan - Last Filed: 08/26/20 12:13> - Lab Data Result diagrams: 08/26/20 09:00 08/26/20 09:00 <Edwardo Willams - Last Filed: 08/26/20 12:34> - Medical Decision Making 89-year-old female presented for diarrhea. Patient states he felt fatigued. Vitals reviewed patient has mild duration, or joint unremarkable EKG performed are negative. Patient states she does feel improved we did discuss about drinking more fluids patient started on room agrees to plan discharge and follow-up with Dr. sinclair (Walter Jordan) - Lab Data Lab Results 08/26/20 08/26/20 08/26/20 Range/Units 09:00 09:00 09:00 WBC 10.8 H (3.8-10.6) k/uL RBC 4.30 (3.80-5.40) m/uL Hgb 12.6 (11.4-16.0) gm/dL Hct 40.5 (34.0-46.0) % MCV 94.1 (80.0-100.0) fL MCH 29.3 (25.0-35.0) pg MCHC 31.1 (31.0-37.0) g/dL RDW 15.0 (11.5-15.5) % Plt Count 253 (150-450) k/uL MPV 8.8 Neutrophils % 77 % Lymphocytes % 12 % Monocytes % 5 % Eosinophils % 3 % Basophils % 1 % Neutrophils # 8.3 H (1.3-7.7) k/uL Lymphocytes # 1.3 (1.0-4.8) k/uL Monocytes # 0.6 (0-1.0) k/uL Eosinophils # 0.4 (0-0.7) k/uL Basophils # 0.1 (0-0.2) k/uL Hypochromasia Slight PT 12.1 H (9.0-12.0) sec INR 1.2 H (<1.2) APTT 31.3 H (22.0-30.0) sec Sodium 141 (137-145) mmol/L Potassium 5.2 H (3.5-5.1) mmol/L Chloride 110 H (98-107) mmol/L Carbon Dioxide 25 (22-30) mmol/L Anion Gap 6 mmol/L BUN 33 H (7-17) mg/dL Creatinine 1.70 H (0.52-1.04) mg/dL Est GFR (CKD-EPI)AfAm 31 (>60 ml/min/1.73 sqM) Est GFR (CKD-EPI)NonAf 27 (>60 ml/min/1.73 sqM) Glucose 90 (74-99) mg/dL Plasma Lactic Acid Jose (0.7-2.0) mmol/L Calcium 9.2 (8.4-10.2) mg/dL Magnesium 2.3 (1.6-2.3) mg/dL Total Bilirubin 0.8 (0.2-1.3) mg/dL AST 35 (14-36) U/L ALT 23 (4-34) U/L Alkaline Phosphatase 40 (38-126) U/L Troponin I (0.000-0.034) ng/mL Total Protein 7.0 (6.3-8.2) g/dL Albumin 4.0 (3.5-5.0) g/dL Urine Color Urine Appearance (Clear) Urine pH (5.0-8.0) Ur Specific [place] (1.001-1.035) Urine Protein (Negative) Urine Glucose (UA) (Negative) Urine Ketones (Negative) Urine Blood (Negative) Urine Nitrite (Negative) Urine Bilirubin (Negative) Urine Urobilinogen (<2.0) mg/dL Ur Leukocyte Esterase (Negative) 08/26/20 08/26/20 08/26/20 Range/Units 09:00 09:00 11:12 WBC (3.8-10.6) k/uL RBC (3.80-5.40) m/uL Hgb (11.4-16.0) gm/dL Hct (34.0-46.0) % MCV (80.0-100.0) fL MCH (25.0-35.0) pg MCHC (31.0-37.0) g/dL RDW (11.5-15.5) % Plt Count (150-450) k/uL MPV Neutrophils % % Lymphocytes % % Monocytes % % Eosinophils % % Basophils % % Neutrophils # (1.3-7.7) k/uL Lymphocytes # (1.0-4.8) k/uL Monocytes # (0-1.0) k/uL Eosinophils # (0-0.7) k/uL Basophils # (0-0.2) k/uL Hypochromasia PT (9.0-12.0) sec INR (<1.2) APTT (22.0-30.0) sec Sodium (137-145) mmol/L Potassium (3.5-5.1) mmol/L Chloride (98-107) mmol/L Carbon Dioxide (22-30) mmol/L Anion Gap mmol/L BUN (7-17) mg/dL Creatinine (0.52-1.04) mg/dL Est GFR (CKD-EPI)AfAm (>60 ml/min/1.73 sqM) Est GFR (CKD-EPI)NonAf (>60 ml/min/1.73 sqM) Glucose (74-99) mg/dL Plasma Lactic Acid Jose 1.1 (0.7-2.0) mmol/L Calcium (8.4-10.2) mg/dL Magnesium (1.6-2.3) mg/dL Total Bilirubin (0.2-1.3) mg/dL AST (14-36) U/L ALT (4-34) U/L Alkaline Phosphatase (38-126) U/L Troponin I <0.012 (0.000-0.034) ng/mL Total Protein (6.3-8.2) g/dL Albumin (3.5-5.0) g/dL Urine Color Colorless Urine Appearance Clear (Clear) Urine pH 5.0 (5.0-8.0) Ur Specific [place] 1.005 (1.001-1.035) Urine Protein Negative (Negative) Urine Glucose (UA) Negative (Negative) Urine Ketones Negative (Negative) Urine Blood Negative (Negative) Urine Nitrite Negative (Negative) Urine Bilirubin Negative (Negative) Urine Urobilinogen <2.0 (<2.0) mg/dL Ur Leukocyte Esterase Negative (Negative) Disposition Is patient prescribed a controlled substance at d/c from ED?: No Time of Disposition: 12:15 <Walter Jordan - Last Filed: 08/26/20 12:13> <Edwardo Willams - Last Filed: 08/26/20 12:34> Clinical Impression: Diarrhea, Dehydration Disposition: HOME SELF-CARE Condition: Stable Instructions (If sedation given, give patient instructions): Acute Diarrhea (ED) Additional Instructions: Please return to the Emergency Department if symptoms worsen or any other concerns. Referrals: Marilyn Sinclair MD [Primary Care Provider] - 1-2 days
[2020-08-26] MEDS ORDERED: SODIUM CHLORIDE 0.9% 1,000 ML IV SCH (11:15)
[2020-08-26] MEDS ORDERED: SODIUM CHLORIDE 0.9% 500 ML 500 ML IV ONE (11:15)
[2020-08-26 11:32] LABS: Appearance,Urine Clear (Clear); Bilirubin,Urine Negative (Negative); Blood,Urine Negative (Negative); Color,Urine Colorless; Glucose,Urine (UA) Negative (Negative); Ketones,Urine Negative (Negative); Leukocyte Esterase,Urine Negative (Negative); Nitrite,Urine Negative (Negative); Protein,Urine Negative (Negative); Specific Gravity,Urine 1.005 (1.001-1.035); Urobilinogen,Urine <2.0 mg/dL (<2.0)
[2020-08-26 12:44] VITALS: BP 171/59; PULSE 62; RESP 18
== END 2020-08-26 12:45 | disposition home or self-care (01) ==
LOC: EC 08:41
DX: E86.0 Dehydration (principal); R19.7 Diarrhea, unspecified; I25.119 Atherosclerotic heart disease of native coronary artery with unspecified angina pectoris; I25.2 Old myocardial infarction; K21.9 Gastro-esophageal reflux disease without esophagitis; E78.5 Hyperlipidemia, unspecified; I13.0 Hypertensive heart and chronic kidney disease with heart failure and stage 1 through stage 4 chronic kidney disease, or unspecified chronic kidney disease; E11.22 Type 2 diabetes mellitus with diabetic chronic kidney disease; H47.012 Ischemic optic neuropathy, left eye; I48.0 Paroxysmal atrial fibrillation; N18.2 Chronic kidney disease, stage 2 (mild); D64.9 Anemia, unspecified; Z79.01 Long term (current) use of anticoagulants; Z79.4 Long term (current) use of insulin; Z79.82 Long term (current) use of aspirin; Z79.899 Other long term (current) drug therapy; Z86.73 Personal history of transient ischemic attack (TIA), and cerebral infarction without residual deficits; Z95.1 Presence of aortocoronary bypass graft; Z87.891 Personal history of nicotine dependence; Z88.8 Allergy status to other drugs, medicaments and biological substances
CPT/HCPCS: 36415; 80053; 81003; 83605; 83735; 84484; 85025; 85610; 85730; 93005; 96360; 99285

== ENCOUNTER 2020-09-10 19:41 | Inpatient (IN) | payer MEDICARE, BC ==
[2020-09-10] MEDS ORDERED: SODIUM CHLORIDE 0.9% 500 ML 500 ML IV ONE (19:49)
--- NOTE | 2020-09-10 19:52 | ED ---
Syncope HPI - General Stated Complaint: Syncope Time Seen by Provider: 09/10/20 19:48 Source: patient, EMS Limitations: no limitations - History of Present Illness Initial Comments: This is an 89-year-old female with a history of CHF, paroxysmal atrial fibrillation, GI bleed, hypertension, aortic stenosis on Xarelto who presents emergent department for an episode of syncope. The patient states that she was in her normal state of health today. She was helping her daughter do laundry. She decided that she needed to use the restroom. She went up the stairs and was straining while having a bowel movement. The patient states that she got lightheaded and her daughter came into the bathroom and asked her what was going on. The patient remembers the daughter getting very panicked and decided to ca ll an ambulance. The patient is unsure if she actually lost consciousness however states that her daughter told her that she did. She denied having any chest pain or shortness of breath. Patient does admit to feeling lightheaded currently however feels much improved. She states that she's been eating and drinking normal amounts. No nausea, vomiting, or diarrhea. No dark or bloody stools. She currently has no complaints. - Related Data Home Medications Medication Instructions Recorded Confirmed Insulin Detemir [Levemir Flextouch] 14 units SQ HS@219903/02/20 08/26/20 Linagliptin [Tradjenta] 5 mg PO DAILY@99904/08/20 08/26/20 Metoprolol Tartrate [Lopressor] 50 mg PO BID@1000,219904/08/20 08/26/20 Pantoprazole [Protonix] 40 mg PO HS@219904/08/20 08/26/20 Rivaroxaban [Xarelto] 15 mg PO HS@219904/08/20 08/26/20 Diclofenac 0.1% Ophth Soln 1 drop LEFT EYE BID@1000,169905/23/20 08/26/20 [Voltaren 0.1% Ophth Soln] Ferrous Sulfate [Iron (65 MG 325 mg PO BID@1000,169905/23/20 08/26/20 Elemental)] Vit C/E/Zn/Coppr/Lutein/Zeaxan 1 cap PO BID@1000,169905/23/20 08/26/20 [Preservision Areds 2 Softgel] ALPRAZolam [Xanax] 0.5 mg PO BID@1000,2200 06/21/20 08/26/20 Acetaminophen Tab [Tylenol] 650 mg PO Q6HR 08/26/20 08/26/20 Aspirin 81 mg PO DAILY@1000 08/26/20 08/26/20 Atorvastatin [Lipitor] 80 mg PO HS@2200 08/26/20 08/26/20 Cranberry Fruit Extract [Cranberry] 1,000 mg PO DAILY@1700 08/26/20 08/26/20 Spironolactone [Aldactone] 25 mg PO DAILY PRN 08/26/20 08/26/20 amLODIPine [Norvasc] 2.5 mg PO DAILY 08/26/20 08/26/20 hydroCHLOROthiazide [Hydrodiuril] 25 mg PO DAILY PRN 08/26/20 08/26/20 lisinopriL 30 mg PO DAILY@2200 08/26/20 08/26/20 Previous Rx's Medication Instructions Recorded Hydrocodone/Acetaminophen [[place] 1 tab PO TID PRN #9 tab 05/25/20 5-325] Allergies Allergy/AdvReac Type Severity Reaction Status Date / Time zolpidem [From Ambien] AdvReac Hallucinati Verified 08/26/20 08:52 ons Review of Systems ROS Statement: Those systems with pertinent positive or pertinent negative responses have been documented in the HPI. ROS Other: All systems not noted in ROS Statement are negative. Past Medical History Past Medical History: Atrial Fibrillation, Coronary Artery Disease (CAD), Chest Pain / Angina, Heart Failure, CVA/TIA, Diabetes Mellitus, Eye Disorder, GERD/Reflux, Hyperlipidemia, Hypertension, Myocardial Infarction ([place]), Renal Disease, Syncope, Vascular Disorder Additional Past Medical History / Comment(s): Pt recently admitted to [facility] with L eye pain/optic ischemic neuropathy/TIA, EF 35% with mild aortic stenosis/mild mitral regurg. 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 Past Anesthesia/Blood Transfusion Reactions: No Reported Reaction Past Psychological History: No Psychological Hx Reported Smoking Status: Former smoker Past Alcohol Use History: None Reported Past Drug Use History: None Reported - Past Family History Mother Family Medical History: No Reported History Additional Family Medical History / Comment(s): Mother at age 82 from old age. Father Family Medical History: No Reported History Additional Family Medical History / Comment(s): Father from old age and patient does not recall his age or any medical problems. Son(s) Family Medical History: Cancer Additional Family Medical History / Comment(s): Patient has one son with history of throat cancer in remission. Patient has one daughter with no major medical problems. Patient does not have any brothers or sisters. General Exam - General Exam Comments Initial Comments: Constitutional: Awake alert Appears comfortable Head: Normocephalic atraumatic , no signs of head trauma Eyes: no conjunctival injection No scleral icterus EOMI, pupils are 3 mm and reactive bilaterally Neck: No JVD Supple Heart: Regular rate rhythm normal S1-S2 Lungs: Clear to auscultation bilaterally No wheezing No rales Abdomen: Soft nondistended nontender Extremities: Non edematous DP pulses intact Radial pulses intact Neuro: A&Ox3 No focal neurologic deficits Psych: Appropriate mood and affect Limitations: no limitations Course Vital Signs 09/10/20 19:42 Pulse Rate 66 Respiratory 18 Rate Blood Pressure 185/65 O2 Sat by Pulse 97 Oximetry EKG Findings - EKG Comments: EKG Findings:: EKG showing normal sinus rhythm with a rate of 63. There are no abnormal ST segment changes. She has T-wave flattening in V1 through V3. QTC is 435. Other intervals are normal. There is one PVC Medical Decision Making - Medical Decision Making Is an 89-year-old female presents emergency department for an episode of syncope. Patient was hemodynamic was stable on arrival the emergency department. The patient had blood work performed. Blood work is showing significant anemia of 9.1. Compared to 2 weeks ago when it was 12.6. Patient also found to have hyperkalemia of 6. She was given calcium gluconate, dextrose and insulin. She was started on Kayexalate. The patient does have a significant history of GI bleed and is Unser alto. She is required cautery transfusions previously. With her recent syncope like to keep her overnight for monitoring and recheck of hemoglobin in the morning. I spoke with Dr. Nash except the patient for admission and agrees with plan of care at this time. - Lab Data Result diagrams: 09/10/20 20:10 09/10/20 20:11 Lab Results 09/10/20 09/10/20 Range/Units 20:10 20:11 WBC 13.0 H (3.8-10.6) k/uL RBC 3.01 L (3.80-5.40) m/uL Hgb 9.1 L D (11.4-16.0) gm/dL Hct 29.2 L (34.0-46.0) % MCV 97.2 (80.0-100.0) fL MCH 30.4 (25.0-35.0) pg MCHC 31.3 (31.0-37.0) g/dL RDW 15.7 H (11.5-15.5) % Plt Count 231 (150-450) k/uL MPV 9.9 Neutrophils % 75 % Lymphocytes % 16 % Monocytes % 5 % Eosinophils % 2 % Basophils % 0 % Neutrophils # 9.8 H (1.3-7.7) k/uL Lymphocytes # 2.0 (1.0-4.8) k/uL Monocytes # 0.7 (0-1.0) k/uL Eosinophils # 0.3 (0-0.7) k/uL Basophils # 0.1 (0-0.2) k/uL Hypochromasia Slight Sodium 137 (137-145) mmol/L Potassium 6.0 H (3.5-5.1) mmol/L Chloride 108 H (98-107) mmol/L Carbon Dioxide 21 L (22-30) mmol/L Anion Gap 8 mmol/L BUN 48 H (7-17) mg/dL Creatinine 1.44 H (0.52-1.04) mg/dL Est GFR (CKD-EPI)AfAm 38 (>60 ml/min/1.73 sqM) Est GFR (CKD-EPI)NonAf 33 (>60 ml/min/1.73 sqM) Glucose 170 H (74-99) mg/dL Calcium 9.3 (8.4-10.2) mg/dL Magnesium 2.2 (1.6-2.3) mg/dL Total Bilirubin 1.0 (0.2-1.3) mg/dL AST 42 H (14-36) U/L ALT 19 (4-34) U/L Alkaline Phosphatase 27 L (38-126) U/L Total Protein 6.6 (6.3-8.2) g/dL Albumin 3.8 (3.5-5.0) g/dL Disposition Clinical Impression: GI bleed, Hyperkalemia Disposition: ADMITTED IP TO THIS [facility] Condition: Stable Referrals: Marilyn Nash MD [Primary Care Provider] - 1-2 days Decision to Admit Reason: Admit from EC
[2020-09-10 20:20] LABS: Basophils # (A) 0.1 k/uL (0-0.2); Basophils % (A) 0 %; Eosinophils # (A) 0.3 k/uL (0-0.7); Eosinophils % (A) 2 %; HCT 29.2 % (34.0-46.0); Hypochromasia Slight; Lymphocytes % (A) 16 %; MCH 30.4 pg (25.0-35.0); MCHC 31.3 g/dL (31.0-37.0); MCV 97.2 fL (80.0-100.0); Mean Platelet Volume 9.9; Monocytes # (A) 0.7 k/uL (0-1.0); Monocytes % (A) 5 %; Neutrophils # (A) 9.8 k/uL (1.3-7.7); Neutrophils % (A) 75 %; Platelet Count 231 k/uL (150-450); RBC 3.01 m/uL (3.80-5.40); RDW 15.7 % (11.5-15.5)
[2020-09-10 20:30] LABS: Albumin 3.8 g/dL (3.5-5.0); Calcium 9.3 mg/dL (8.4-10.2); Magnesium 2.2 mg/dL (1.6-2.3); Total Protein 6.6 g/dL (6.3-8.2)
[2020-09-10 20:35] LABS: HGB 9.1 gm/dL (11.4-16.0)
[2020-09-10] MEDS ORDERED: INSULIN REGULAR 100 UNIT/ML VIAL IV ONE (20:45)
[2020-09-10] MEDS ORDERED: DEXTROSE 50% SYRINGE 50 ML IVP STA (20:45)
[2020-09-10] MEDS ORDERED: CALCIUM GLUCONATE 1 GM in SODIUM CHLORIDE 0.9% 100 ML IVPB ONE (20:45)
[2020-09-10 20:47] LABS: INR 1.1 (<1.2); Prothrombin Time 10.9 sec (9.0-12.0)
[2020-09-10] MEDS ORDERED: SODIUM POLYSTYRENE SULFONATE 15 GM/60 ML BOTTLE PO STA (20:52)
[2020-09-10] MEDS ORDERED: NALOXONE 0.4 MG/ML 1 ML VIAL IV PRN (20:53)
[2020-09-10 21:07] LABS: Glucose,Whole Blood 194 mg/dL (75-99)
[2020-09-10 21:08] LABS: Partial Thromboplastin Time 18.5 sec (22.0-30.0)
[2020-09-10] MEDS: PANTOPRAZOLE 40 MG/10 ML VIAL IVP SCH (21:10)
[2020-09-10 21:34] LABS: Glucose,Whole Blood 349 mg/dL (75-99)
[2020-09-10] MEDS: SODIUM CHLORIDE 0.9% 1,000 ML IV SCH (22:20)
[2020-09-11] MEDS ORDERED: SPIRONOLACTONE 25 MG TAB PO PRN (00:18)
[2020-09-11] MEDS ORDERED: HYDROcodone/APAP 5-325MG 1 EACH TAB PO PRN (00:18)
[2020-09-11] MEDS ORDERED: hydroCHLOROthiazide 25 MG TAB PO PRN (00:18)
[2020-09-11] MEDS ORDERED: RIVAROXABAN 15 MG TAB PO SCH (00:23)
[2020-09-11 00:48] LABS: Glucose,Whole Blood 125 mg/dL (75-99)
[2020-09-11] MEDS: METOPROLOL TARTRATE 50 MG TAB PO SCH ×3 (00:53→21:08)
[2020-09-11] MEDS: lisinopriL 20 MG TAB PO SCH ×2 (00:53→21:07)
[2020-09-11] MEDS: INSULIN DETEMIR (LEVEMIR) 100 UNIT/ML SYR SQ SCH ×2 (01:08→21:11)
[2020-09-11] MEDS: ACETAMINOPHEN TAB 325 MG TAB PO SCH ×3 (04:59→17:58)
[2020-09-11 06:54] LABS: Glucose,Whole Blood 104 mg/dL (75-99)
[2020-09-11 08:08] LABS: Basophils % (A) 1 %; Eosinophils # (A) 0.2 k/uL (0-0.7); Eosinophils % (A) 3 %; HCT 24.1 % (34.0-46.0); HGB 7.8 gm/dL (11.4-16.0); Hypochromasia Slight; Lymphocytes # (A) 1.5 k/uL (1.0-4.8); Lymphocytes % (A) 19 %; MCH 31.6 pg (25.0-35.0); MCHC 32.5 g/dL (31.0-37.0); MCV 97.5 fL (80.0-100.0); Mean Platelet Volume 9.2; Monocytes # (A) 0.5 k/uL (0-1.0); Monocytes % (A) 6 %; Neutrophils # (A) 5.5 k/uL (1.3-7.7); Neutrophils % (A) 70 %; Platelet Count 215 k/uL (150-450); RBC 2.47 m/uL (3.80-5.40); RDW 15.7 % (11.5-15.5); WBC 7.9 k/uL (3.8-10.6)
[2020-09-11 08:27] LABS: Albumin 2.9 g/dL (3.5-5.0); Calcium 9.1 mg/dL (8.4-10.2); Potassium 4.5 mmol/L (3.5-5.1); Total Bilirubin 0.6 mg/dL (0.2-1.3); Total Protein 5.1 g/dL (6.3-8.2)
[2020-09-11] MEDS: ALPRAZolam 0.5 MG TAB PO SCH ×2 (09:27→21:09)
[2020-09-11] MEDS: FERROUS SULFATE 325 MG TAB PO SCH ×2 (09:34→17:59)
[2020-09-11] MEDS: DICLOFENAC 0.1% OPHTH SOLN 2.5 ML BTL LEFT EYE SCH ×2 (09:35→18:05)
[2020-09-11] MEDS: PANTOPRAZOLE 40 MG/10 ML VIAL IVP SCH ×2 (09:35→21:09)
[2020-09-11] MEDS: amLODIPine 2.5 MG TAB PO SCH (09:35)
[2020-09-11] MEDS ORDERED: ASPIRIN 81 MG PO SCH (10:00)
[2020-09-11] MEDS ORDERED: NON FORMULARY DRUG (Vit C/E/Zn/Coppr/Lutein/Zeaxan [Preservision Areds 2 Softgel] 1 EACH C PO SCH (10:00)
[2020-09-11] MEDS ORDERED: MAGNESIUM HYDROXIDE 2,400 MG/10 ML CUP PO PRN (11:25)
[2020-09-11 11:45] LABS: Glucose,Whole Blood 118 mg/dL (75-99)
--- NOTE | 2020-09-11 11:50 | P.CRDCN ---
History of Present Illness Consult date: 09/11/20 History of present illness: This is a 89-year-old female with history of paroxysmal atrial fibrillation, previous bypass surgery, hyperlipidemia, history of carotid endarterectomy, diabetes, and prior GI bleeding who was admitted to the hospital with complaints of possible syncope. She claimed that she was helping her daughter with galley cook. She felt like going to the bathroom to have bowel movement. She was trying to have a bowel movement and was straining on the commode. Apparently she is having some problems with constipation. She suddenly felt weak and tired and slumped over with her head down. Daughter came in and she got panicked. According to the daughter, she might have lost consciousness. The patient herself doesn't think she lost consciousness. Patient denied any chest pain, shortness of breath but had some lightheadedness. Patient has dizziness and lightheadedness on a chronic basis. Her EKG did not reveal any acute changes. Since admission patient is noted to have drop in her hemoglobin suggestive of possible GI bleeding and blood loss. She doesn't look player. The episode most probably could be vasovagal. We'll continue to monitor her blood pressure and check for postural changes. Will continue to monitor her for any bradyarrhythmias or tachyarrhythmias. Patient has history of cardiomyopathy. Patient is on an Xarelto which may have to be held because of GI bleeding. GI consult is also requested. Patient does have history of aortic stenosis and a systolic murmur but aortic stenosis was apparently mildly the past. We may repeat echocardiogram Review of Systems As per the chart Past Medical History Past Medical History: Atrial Fibrillation, Coronary Artery Disease (CAD), Chest Pain / Angina, Heart Failure, CVA/TIA, Diabetes Mellitus, Eye Disorder, GERD/Reflux, Hyperlipidemia, Hypertension, Myocardial Infarction ([place]), Renal Disease, Syncope, Vascular Disorder Additional Past Medical History / Comment(s): Pt recently admitted to [facility] with L eye pain/optic ischemic neuropathy/TIA, EF 35% with mild aortic stenosis/mild mitral regurg. 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 Past Anesthesia/Blood Transfusion Reactions: No Reported Reaction Past Psychological History: No Psychological Hx Reported Additional Psychological History / Comment(s): Pt resides with her luis at this time. She has [facility]. She is using a walker and has a wheelchair for going to and from apartment. She no longer drives, her luis drives. Smoking Status: Former smoker Past Alcohol Use History: None Reported Additional Past Alcohol Use History / Comment(s): Pt started smoking in 1955 and quit in 2015. Past Drug Use History: None Reported Additional Drug Use History / Comment(s): Patient smoked for 60+ years. Quit in 2015 - Past Family History Mother Family Medical History: No Reported History Additional Family Medical History / Comment(s): Mother at age 82 from old age. Father Family Medical History: No Reported History Additional Family Medical History / Comment(s): Father from old age and patient does not recall his age or any medical problems. Son(s) Family Medical History: Cancer Additional Family Medical History / Comment(s): Patient has one son with history of throat cancer in remission. Patient has one daughter with no major medical problems. Patient does not have any brothers or sisters. Medications and Allergies Home Medications Medication Instructions Recorded Confirmed Type Insulin Detemir [Levemir Flextouch] 14 units SQ HS@219903/02/20 09/11/20 History Linagliptin [Tradjenta] 5 mg PO DAILY@1000 04/08/20 09/11/20 History Metoprolol Tartrate [Lopressor] 50 mg PO BID@1000,219904/08/20 09/11/20 History Pantoprazole [Protonix] 40 mg PO HS@219904/08/20 09/11/20 History Rivaroxaban [Xarelto] 15 mg PO HS@219904/08/20 09/11/20 History Diclofenac 0.1% Ophth Soln 1 drop LEFT EYE BID@1000,1700 05/23/20 09/11/20 History [Voltaren 0.1% Ophth Soln] Ferrous Sulfate [Iron (65 MG 325 mg PO BID@1000,1700 05/23/20 09/11/20 History Elemental)] Vit C/E/Zn/Coppr/Lutein/Zeaxan 1 cap PO BID@1000,1700 05/23/20 09/11/20 History [Preservision Areds 2 Softgel] Hydrocodone/Acetaminophen [[place] 1 tab PO TID PRN #9 tab 05/25/20 09/11/20 Rx 5-325] ALPRAZolam [Xanax] 0.5 mg PO BID@1000,2200 PRN 06/21/20 09/11/20 History Acetaminophen Tab [Tylenol] 650 mg PO Q6HR 08/26/20 09/11/20 History Aspirin 81 mg PO DAILY@1000 08/26/20 09/11/20 History Atorvastatin [Lipitor] 80 mg PO HS@2200 08/26/20 09/11/20 History Cranberry Fruit Extract [Cranberry] 1,000 mg PO DAILY@1700 08/26/20 09/11/20 History Spironolactone [Aldactone] 25 mg PO DAILY PRN 08/26/20 09/11/20 History hydroCHLOROthiazide [Hydrodiuril] 25 mg PO DAILY PRN 08/26/20 09/11/20 History lisinopriL 30 mg PO HS@2200 08/26/20 09/11/20 History amLODIPine [Norvasc] 5 mg PO DAILY PRN 09/11/20 09/11/20 History Allergies Allergy/AdvReac Type Severity Reaction Status Date / Time zolpidem [From Ambien] AdvReac Hallucinati Verified 09/11/20 08:00 ons Physical Exam Vitals: Vital Signs Temp Pulse Pulse Resp BP BP Pulse Ox 09/11/20 09:24 98 F 64 16 179/52 98 09/11/20 09:00 16 09/11/20 04:05 97.9 F 67 172/47 98 09/10/20 23:44 98.3 F 66 171/52 97 09/10/20 23:28 67 16 145/42 97 09/10/20 19:42 66 18 185/65 97 Intake and Output 09/10/20 09/11/20 09/11/20 22:59 06:59 14:59 Intake Total 0 160 Output Total 925 Balance -925 160 Intake: IV 160 Sodium Chloride 0.9% 1, 160 000 ml @ 20 mls/hr IV . Q24H GENNY Rx#:[id number] Oral 0 Output: Urine 925 Other: Voiding Method Toilet Bedside Commode # Voids 1 Weight 63.503 kg 63.503 kg GENERAL EXAM: Patient is alert and oriented and doesn't appear to be in any acute distress HEENT: Normocephalic. Normal reaction of pupils, equal size, normal range of extraocular motion. No erythema or exudates in the throat. NECK: No masses, no nuchal rigidity. CHEST: No chest wall deformity. LUNGS: Equal air entry with no crackles or wheeze. HEART: S1 and S2 normal with systolic murmur in the aortic area ABDOMEN: No hepatosplenomegaly, normal bowel sounds, no guarding or rigidity. SKIN: No rashes CENTRAL NERVOUS SYSTEM: No focal deficits. EXTREMITIES: No cyanosis, clubbing or edema. Results 09/11/20 07:15 09/11/20 07:15 Cardiac Enzymes 09/10/20 09/10/20 09/11/20 Range/Units 20:11 20:11 07:15 AST 42 H 21 (14-36) U/L Troponin I 0.012 (0.000-0.034) ng/mL Coagulation 09/10/20 Range/Units 20:11 PT 10.9 (9.0-12.0) sec APTT 18.5 L (22.0-30.0) sec CBC 09/10/20 09/11/20 Range/Units 20:10 07:15 WBC 13.0 H 7.9 (3.8-10.6) k/uL RBC 3.01 L 2.47 L (3.80-5.40) m/uL Hgb 9.1 L D 7.8 L (11.4-16.0) gm/dL Hct 29.2 L 24.1 L (34.0-46.0) % Plt Count 231 215 (150-450) k/uL Comprehensive Metabolic Panel 09/10/20 09/11/20 Range/Units 20:11 07:15 Sodium 137 140 (137-145) mmol/L Potassium 6.0 H 4.5 (3.5-5.1) mmol/L Chloride 108 H 112 H (98-107) mmol/L Carbon Dioxide 21 L 25 (22-30) mmol/L BUN 48 H 38 H (7-17) mg/dL Creatinine 1.44 H 1.42 H (0.52-1.04) mg/dL Glucose 170 H 93 (74-99) mg/dL Calcium 9.3 9.1 (8.4-10.2) mg/dL AST 42 H 21 (14-36) U/L ALT 19 14 (4-34) U/L Alkaline Phosphatase 27 L 28 L (38-126) U/L Total Protein 6.6 5.1 L (6.3-8.2) g/dL Albumin 3.8 2.9 L (3.5-5.0) g/dL Current Medications Generic Name Dose Route Start Last Admin Trade Name Freq PRN Reason Stop Dose Admin Acetaminophen 650 mg 09/11/20 06:00 09/11/20 04:59 Acetaminophen Tab 325 Mg Tab PO 650 mg Q6HR [facility] Administration Hydrocodone Bitart/Acetaminophen 1 each 09/11/20 00:18 Hydrocodone/Apap 5-325mg 1 Each Tab PO TID PRN Pain Alprazolam 0.5 mg 09/11/20 10:00 09/11/20 09:27 Alprazolam 0.5 Mg Tab PO Not Given BID@1000,2200 [facility] Amlodipine Besylate 2.5 mg 09/11/20 09:00 09/11/20 09:35 Amlodipine 2.5 Mg Tab PO 2.5 mg DAILY [facility] Administration Aspirin 81 mg 09/11/20 10:00 09/11/20 09:34 Aspirin 81 Mg PO 81 mg DAILY@1000 [facility] Administration Atorvastatin Calcium 80 mg 09/11/20 22:00 Atorvastatin 80 Mg Tab PO HS@2200 [facility] Diclofenac Sodium 1 drops 09/11/20 10:00 09/11/20 09:35 Diclofenac 0.1% Ophth Soln 2.5 Ml Btl LEFT EYE 1 drops BID@1000,1700 [facility] Administration Ferrous Sulfate 325 mg 09/11/20 10:00 09/11/20 09:34 Ferrous Sulfate 325 Mg Tab PO 325 mg BID@1000,1700 [facility] Administration Hydrochlorothiazide 25 mg 09/11/20 00:18 Hydrochlorothiazide 25 Mg Tab PO DAILY PRN Edema Sodium Chloride 1,000 mls @ 20 mls/hr 09/10/20 21:00 09/10/20 22:20 Saline 0.9% IV 20 mls/hr .Q24H [facility] Administration Insulin Detemir 14 unit 09/11/20 00:25 09/11/20 01:08 Insulin Detemir (Levemir) 100 Unit/Ml Syr SQ Not Given HS@2200 [facility] Linagliptin 5 mg 09/11/20 10:00 Linagliptin 5 Mg Tablet PO DAILY@1000 [facility] Lisinopril 30 mg 09/11/20 00:24 09/11/20 00:53 Lisinopril 20 Mg Tab PO 30 mg DAILY@2199 [facility] Administration Magnesium Hydroxide 2,400 mg 09/11/20 11:25 Magnesium Hydroxide 2,400 Mg/10 Ml Cup PO ONCE PRN Constipation Metoprolol Tartrate 50 mg 09/11/20 00:23 09/11/20 09:34 Metoprolol Tartrate 50 Mg Tab PO 50 mg BID@1000,2200 [facility] Administration Naloxone HCl 0.2 mg 09/10/20 20:53 Naloxone 0.4 Mg/Ml 1 Ml Vial IV Q2M PRN Opioid Reversal Pantoprazole Sodium 40 mg 09/10/20 21:00 09/11/20 09:35 Pantoprazole 40 Mg/10 Ml Vial IVP 40 mg BID [facility] Administration Polyethylene Glycol 17 gm 09/12/20 09:00 Polyethylene Glycol 3350 17 Gm Powd.Pack PO DAILY [facility] Rivaroxaban 15 mg 09/11/20 00:23 09/11/20 01:03 Rivaroxaban 15 Mg Tab PO 15 mg HS@2200 [facility] Administration Spironolactone 25 mg 09/11/20 00:18 Spironolactone 25 Mg Tab PO DAILY PRN Edema Intake and Output 09/10/20 09/11/20 09/11/20 22:59 06:59 14:59 Intake Total 0 160 Output Total 925 Balance -925 160 Intake: IV 160 Sodium Chloride 0.9% 1, 160 000 ml @ 20 mls/hr IV . Q24H [facility] Rx#:[id number] Oral 0 Output: Urine 925 Other: Voiding Method Toilet Bedside Commode # Voids 1 Weight 63.503 kg 63.503 kg 09/11/20 07:15 09/11/20 07:15 EKG Interpretations (text) Sinus rhythm with loss was ST-T changes Assessment and Plan (1) Hyperkalemia Current Visit: Yes Status: Acute Code(s): E87.5 - HYPERKALEMIA SNOMED Cod e(s): 45250913 (2) Paroxysmal A-fib Current Visit: No Status: Acute Code(s): I48.0 - PAROXYSMAL ATRIAL FIBRILLATION SNOMED Code(s): 617037638 (3) Syncope Current Visit: Yes Status: Acute Code(s): R55 - SYNCOPE AND COLLAPSE SNOMED Code(s): 893057757 (4) Aortic stenosis Current Visit: Yes Status: Acute Code(s): I35.0 - NONRHEUMATIC AORTIC (KAYA VE) STENOSIS SNOMED Code(s): 83171282 (5) Anemia Current Visit: Yes Status: Acute Code(s): D64.9 - ANEMIA, UNSPECIFIED SNOMED Code(s): 190067581 Plan: This patient was admitted with episode of extreme weakness and possible syncope. This could be vasovagal in nature. Rule out cardiac arrhythmias. Rule out severe aortic stenosis. Could also be related to GI bleeding and anemia. We'll continue to monitor for any arrhythmias. We'll get an echocardiogram . check blood pressure per postural changes. GI workup for anemia and possible GI bleeding. Prognosis is guarded
--- NOTE | 2020-09-11 12:28 | P.STRESS ---
- Stress Test Note Stress Test Results/Findings: Exam Performed: Exam Date: Reason for Exam: Height: 5 ft 2 in Weight: 63.503 kg Protocol: Stage: Duration of Exercise: Resting Heart Rate: Resting Blood Pressure: Maximum Achieved Heart Rate: Maximum Achieved Blood Pressure: 85% PMHR: 100% PMHR: METS: Technologist Comment: Stress Test Results/Findings: This is a 58-year-old female with history of smoking, mild coronary artery disease was being evaluated for symptoms of chest pain. Her EKGs and cardiac enzymes have been negative. Stress data: Baseline EKG showed sinus rhythm with normal MI and chronic aspiration. Blood pressure at rest is 111/69, pulse rate of 49. Patient had chest pain which is constant throughout the testing and also pretesting and posttesting period. Appear to be atypical. A standard dose of dobutamine was initiated and titrated to maximum of about 30 mics achieved a maximum rate of 146 with a blood pressure 124/48. EKGs taken during and after infusion did not reveal any significant changes to suggest ischemia. Echo data: Baseline echo images with contrast showed normal LV function. Echo images taken with the low-dose and high-dose dobutamine showed progressive augmentation of wall motion and thickening. Final impression: #1. Negative dobutamine stress test #2. Negative dobutamine stress echo. #3. Patient had constant chest pain which appeared to be atypical
[2020-09-11] MEDS: LINAGLIPTIN 5 MG TABLET PO SCH (12:31)
[2020-09-11] MEDS: SODIUM CHLORIDE 0.9% 1,000 ML IV SCH (12:35)
[2020-09-11] MEDS ORDERED: MAGNESIUM CITRATE 296 ML BOTTLE PO ONE (13:35)
[2020-09-11] MEDS ORDERED: SIMETHICONE 40 MG/0.6 ML DROPS 2,000 MG/30 ML BOTTLE PO ONE ×2 (14:02→14:37)
--- NOTE | 2020-09-11 16:34 | CONS ---
CONSULTATION DATE OF DICTATION: 09/11/2020 . REASON FOR CONSULTATION: Syncope and symptomatic anemia. HISTORY OF PRESENT ILLNESS: The patient is an 89-year-old pleasant white female admitted to the hospital because of symptomatic anemia and an episode of syncope. The patient has history of atrial fibrillation and history of cardiac bypass surgery. Presently on Xarelto and the last dose was last night. Apparently, she was going to the bathroom yesterday and was straining and subsequently became weak, tired and thinks she passed out. She was since brought to the emergency room and was noted to have a hemoglobin of 7.5 g/dL and hence we are consulted for further evaluation. The patient states that she has been taking iron supplements and has been having dark colored stools for the last several months. She has chronic atrial fibrillation and has been on Xarelto, the last dose was last night. In the emergency room her hemoglobin initially was 9.1, subsequently dropped to 7.8 g/dL. She reports no abdominal pain. No nausea, no vomiting. No rectal bleeding, but has been having dark colored stools. On review of her records, she did have an EGD, colonoscopy by Dr. 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 PAST MEDICAL HISTORY: Significant for atrial fibrillation, on Xarelto, history of hypertension, coronary artery disease, status post CABG in the past, history of hyperlipidemia, anxiety. MEDICATIONS: At home include Tradjenta, Levemir, Lopressor, Protonix Xarelto, iron sulfate, Zantac, Tylenol, Lipitor, Aldactone, Norvasc, HydroDIURIL, lisinopril. ALLERGIES: AMBIEN. PAST SURGICAL HISTORY: CABG, EGD, colonoscopy in February of 2020, adenoidectomy, tonsillectomy, ORIF of the left ankle, right carotid endarterectomy. FAMILY HISTORY: Mother of old age. Father of old age. REVIEW OF SYSTEMS: CARDIOPULMONARY: No chest pain or shortness of breath. GENITOURINARY: No dysuria or hematuria. MUSCULOSKELETAL: Unremarkable. SKIN: Unremarkable. ENDOCRINE: Unremarkable. PSYCHIATRY: Unremarkable. NEUROLOGY: Unremarkable. ENT/VISION: Unremarkable. CONSTITUTIONAL: No recent weight loss. No fever, chills, night sweats. PHYSICAL EXAMINATION: She appears comfortable, in no apparent distress. Vital signs are stable, blood pressure 150/72, pulse is 63, temperature 97.9. HEENT: Examination unremarkable, conjunctivae are pink, sclerae nonicteric, oral cavity no lesions. NECK: No JVD or lymph node enlargement. CHEST: Clear to auscultation. HEART: Regular rate and rhythm. ABDOMEN: Soft, it was nontender, nondistended. Bowel sounds are positive. EXTREMITIES: No pedal edema. NEURO: She is alert and oriented x3. No focal deficits. LABS: From yesterday WBC 13, hemoglobin 9.1, platelets 231. Today hemoglobin is down to 7.8. BUN is 48, creatinine 1.44. AST, ALT, T-bilirubin and alkaline phosphatase are within normal limits. IMPRESSION: 1. Dizziness/lightheadedness and questionable syncope. 2. Anemia with drop in hemoglobin from 9.1 to 7.8 g/dL. Clinically no evidence of active bleeding. The patient has had questionable dark colored stools for the last few weeks. The patient is status post EGD colonoscopy by Dr. 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 Possibility of small bowel source of occult blood loss cannot be excluded. 3. Atrial fibrillation on Eliquis. 4. History of coronary artery disease, status post CABG many years ago. 5. History of diabetes mellitus and hypertension/hyperlipidemia. RECOMMENDATIONS: 1. We will proceed with a small bowel capsule endoscopy to evaluate the small bowel for any arteriovenous malformations. 2. Continue to hold Xarelto. 3. Monitor CBC on a daily basis. 4. Further recommendations will follow based on the small bowel capsule endoscopy results, which will be done for today. Thank you for this consultation. MMODL / IJN: [id number] /
[2020-09-11 16:37] LABS: Glucose,Whole Blood 136 mg/dL (75-99)
[2020-09-11] MEDS ORDERED: NON FORMULARY DRUG (Cranberry Fruit Extract [Cranberry] 500 MG Tablet) PO SCH (17:00)
[2020-09-11] MEDS: hydrALAZINE HCL 20 MG/ML 1 ML VIAL IVP PRN (17:58)
[2020-09-11 21:02] LABS: Glucose,Whole Blood 135 mg/dL (75-99)
[2020-09-11] MEDS: ATORVASTATIN 80 MG TAB PO SCH (21:07)
[2020-09-11] MEDS ORDERED: PANTOPRAZOLE 40 MG TABLET PO SCH (22:00)
[2020-09-12] MEDS: ACETAMINOPHEN TAB 325 MG TAB PO SCH ×4 (00:02→17:28)
--- NOTE | 2020-09-12 04:29 | P.HPIM ---
History of Present Illness H&P Date: 09/11/20 Chief Complaint: GI bleed/syncope. 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, patient presented to the emergency department at [facility] because of syncopal episode, she was helping her daughter getting her laundry done and she has not had a boel movement soshe went to have a bowel movement and was straining when she developed a syncopal episode, her daughter called 911 and she was transported to the ER at [facility], her hemoglobin was 9.1 and her potassium was elevated at 6 with slight elevation of AST, and her UA showed 21 WBCs along with negative nitrite and low squamous epithelial cells, she was admitted to the hospital and her hemoglobin did drop to 7.8 next day and she was seen in cnsultation by cardiology and GI and she underwent dobutamine stress test juanita was negative for stress induced ischemia and mason talked to her about having clonoscopy done due to the AVM that she had in Cecum and she said she will think about it, patient will be given one unit of PRBCs and we will continue wth Protonix 40 mg IVP Q 12 hours and she will be admitted as an inpatient. Review of Systems Constitutional: Reports anorexia, Reports fatigue, Reports malaise, Reports weakness, Reports weight loss Eyes: bilateral blurred vision, bilateral decreased vision, denies bulging eye Ears: bilateral: decreased hearing Ears, nose, mouth and throat: Denies dysphagia, Denies neck lump, Denies sore throat Cardiovascular: Reports decreased exercise tolerance, Reports dyspnea on exertion, Reports lightheadedness, Reports shortness of breath, Reports syncope, Denies chest pain, Denies rapid heart beat Respiratory: Denies congestion, Denies cough, Denies cough with sputum, Denies home oxygen, Denies sleep apnea, Denies snoring, Denies wheezing Gastrointestinal: Reports abdominal pain, Reports constipation, Reports loss of appetite, Reports melena, Reports nausea, Denies BRBPR, Denies vomiting Genitourinary: Denies dysuria, Denies nocturia Menstruation: Reports postmenopausal Musculoskeletal: Denies myalgias Musculoskeletal: absent: ankle pain, ankle stiffness, ankle swelling, elbow pain, elbow stiffness, elbow swelling, foot pain, foot stiffness, foot swelling, hand pain, hand stiffness, hand swelling, hip pain, hip stiffness, hip swelling, knee pain, knee stiffness, knee swelling, shoulder pain, shoulder stiffness, shoulder swelling, wrist pain, wrist stiffness, wrist swelling Integumentary: Denies pruritus, Denies rash Neurological: Reports syncope, Denies numbness, Denies weakness Psychiatric: Reports anxiety, Reports sleep disturbances, Denies suicidal ideation Endocrine: Denies fatigue, Denies weight change Past Medical History Past Medical History: Atrial Fibrillation, Coronary Artery Disease (CAD), Chest Pain / Angina, Heart Failure, CVA/TIA, Diabetes Mellitus, Eye Disorder, GERD/Reflux, Hyperlipidemia, Hypertension, Myocardial Infarction ([place]), Renal Disease, Syncope, Vascular Disorder Additional Past Medical History / Comment(s): Pt recently admitted to [facility] with L eye pain/optic ischemic neuropathy/TIA, EF 35% with mild aortic stenosis/mild mitral regurg. Other hx: IDDM type II, CKD stage II, TIAs, vertigo, weakness, gait disturbance/falls, bilateral hip and gluteal pain, paroxysmal A fib, anemia, L caratid disease 70%, hx of AVM of the cecum with cox plasma, anemia, macular degeneration bilaterally, L eye pain/optic ischemia, poor vision Last Myocardial Infarction Date:: 2017 History of Any Multi-Drug Resistant Organisms: None Reported Past Surgical History: Adenoidectomy, Coronary Bypass/CABG, Heart Catheterization, Orthopedic Surgery, Tonsillectomy Additional Past Surgical History / Comment(s): EGD, colonoscopies, 3 vessel CABG 1995 in [place], R carotid endartectomy 2015, ORIF L ankle d/t fracture. Past Anesthesia/Blood Transfusion Reactions: No Reported Reaction Past Psychological History: No Psychological Hx Reported Additional Psychological History / Comment(s): Pt resides with her luis at this time. She has [facility]. She is using a walker and has a wheelchair for going to and from apartment. She no longer drives, her luis drives. Smoking Status: Former smoker Past Alcohol Use History: None Reported Additional Past Alcohol Use History / Comment(s): Pt started smoking in 1956 and quit in 2015. Past Drug Use History: None Reported Additional Drug Use History / Comment(s): Patient smoked for 60+ years. Quit in 2015 - Past Family History Mother Family Medical History: No Reported History Additional Family Medical History / Comment(s): Mother at age 82 from old age. Father Family Medical History: No Reported History Additional Family Medical History / Comment(s): Father from old age and patient does not recall his age or any medical problems. Son(s) Family Medical History: Cancer Additional Family Medical History / Comment(s): Patient has one son with history of throat cancer in remission. Patient has one daughter with no major medical problems. Patient does not have any brothers or sisters. Medications and Allergies Home Medications Medication Instructions Recorded Confirmed Type Insulin Detemir [Levemir Flextouch] 14 units SQ HS@2200 03/02/20 09/11/20 History Linagliptin [Tradjenta] 5 mg PO DAILY@1000 04/08/20 09/11/20 History Metoprolol Tartrate [Lopressor] 50 mg PO BID@1000,2200 04/08/20 09/11/20 History Pantoprazole [Protonix] 40 mg PO HS@2200 04/08/20 09/11/20 History Rivaroxaban [Xarelto] 15 mg PO HS@2200 04/08/20 09/11/20 History Diclofenac 0.1% Ophth Soln 1 drop LEFT EYE BID@1000,1700 05/23/20 09/11/20 History [Voltaren 0.1% Ophth Soln] Ferrous Sulfate [Iron (65 MG 325 mg PO BID@1000,1700 05/23/20 09/11/20 History Elemental)] Vit C/E/Zn/Coppr/Lutein/Zeaxan 1 cap PO BID@1000,1700 05/23/20 09/11/20 History [Preservision Areds 2 Softgel] Hydrocodone/Acetaminophen [[place] 1 tab PO TID PRN #9 tab 05/25/20 09/11/20 Rx 5-325] ALPRAZolam [Xanax] 0.5 mg PO BID@1000,2200 PRN 06/21/20 09/11/20 History Acetaminophen Tab [Tylenol] 650 mg PO Q6HR 08/26/20 09/11/20 History Aspirin 81 mg PO DAILY@1000 08/26/20 09/11/20 History Atorvastatin [Lipitor] 80 mg PO HS@2200 08/26/20 09/11/20 History Cranberry Fruit Extract [Cranberry] 1,000 mg PO DAILY@1700 08/26/20 09/11/20 History Spironolactone [Aldactone] 25 mg PO DAILY PRN 08/26/20 09/11/20 History hydroCHLOROthiazide [Hydrodiuril] 25 mg PO DAILY PRN 08/26/20 09/11/20 History lisinopriL 30 mg PO HS@2200 08/26/20 09/11/20 History amLODIPine [Norvasc] 5 mg PO DAILY PRN 09/11/20 09/11/20 History Allergies Allergy/AdvReac Type Severity Reaction Status Date / Time zolpidem [From Ambien] AdvReac Hallucinati Verified 09/11/20 08:00 ons Physical Exam Vitals: Vital Signs Temp Pulse Pulse Resp BP BP Pulse Ox 09/11/20 09:24 98 F 64 16 179/52 98 09/11/20 04:05 97.9 F 67 172/47 98 09/10/20 23:44 98.3 F 66 171/52 97 09/10/20 23:28 67 16 145/42 97 09/10/20 19:42 66 18 185/65 97 Intake and Output 09/10/20 09/11/20 09/11/20 22:59 06:59 14:59 Intake Total 0 Output Total 925 Balance -925 Intake: Oral 0 Output: Urine 925 Other: Voiding Method Toilet # Voids 1 Weight 63.503 kg 63.503 kg Physical examination: HEENT: Head is atraumatic, normocephalic, pupils were equal round reactive to light and accommodations, extraocular muscle movement were intact. Oral mucous membranes are dry patient sounded to the upper and lower lip. Neck: Supple, no JVP, decreased carotid upstroke bilaterally. Chest: Decreased breath sounds at the bases, there is no chest wall tenderness no intercostal retractions there is no expiratory wheezes. Heart: First heart sound is depressed, second heart sounds normal, there is systolic murmur 2/6 located at the right second intercostal space related to the base of the neck per Abdomen: Soft, nontender, nondistended, positive bowel sounds. Extremities: No pedal edema bilaterally, dorsalis pedis palpable bilaterally. No calf tenderness. Neurologic examination: Patient is awake and alert and oriented 3. No focal neuro deficits. Cranial nerves III-12 appear grossly intact. Results CBC & Chem 7: 09/11/20 07:15 09/11/20 07:15 Labs: Abnormal Lab Results - Last 24 Hours (Table) 09/10/20 09/10/20 09/10/20 Range/Units 20:10 20:11 20:11 WBC 13.0 H (3.8-10.6) k/uL RBC 3.01 L (3.80-5.40) m/uL Hgb 9.1 L D (11.4-16.0) gm/dL Hct 29.2 L (34.0-46.0) % RDW 15.7 H (11.5-15.5) % Neutrophils # 9.8 H (1.3-7.7) k/uL APTT 18.5 L (22.0-30.0) sec Potassium 6.0 H (3.5-5.1) mmol/L Chloride 108 H (98-107) mmol/L Carbon Dioxide 21 L (22-30) mmol/L BUN 48 H (7-17) mg/dL Creatinine 1.44 H (0.52-1.04) mg/dL Glucose 170 H (74-99) mg/dL POC Glucose (mg/dL) (75-99) mg/dL AST 42 H (14-36) U/L Alkaline Phosphatase 27 L (38-126) U/L Total Protein (6.3-8.2) g/dL Albumin (3.5-5.0) g/dL 09/10/20 09/10/20 09/11/20 Range/Units 21:06 21:32 00:47 WBC (3.8-10.6) k/uL RBC (3.80-5.40) m/uL Hgb (11.4-16.0) gm/dL Hct (34.0-46.0) % RDW (11.5-15.5) % Neutrophils # (1.3-7.7) k/uL APTT (22.0-30.0) sec Potassium (3.5-5.1) mmol/L Chloride (98-107) mmol/L Carbon Dioxide (22-30) mmol/L BUN (7-17) mg/dL Creatinine (0.52-1.04) mg/dL Glucose (74-99) mg/dL POC Glucose (mg/dL) 194 H 349 H 125 H (75-99) mg/dL AST (14-36) U/L Alkaline Phosphatase (38-126) U/L Total Protein (6.3-8.2) g/dL Albumin (3.5-5.0) g/dL 09/11/20 09/11/20 09/11/20 Range/Units 06:52 07:15 07:15 WBC (3.8-10.6) k/uL RBC 2.47 L (3.80-5.40) m/uL Hgb 7.8 L (11.4-16.0) gm/dL Hct 24.1 L (34.0-46.0) % RDW 15.7 H (11.5-15.5) % Neutrophils # (1.3-7.7) k/uL APTT (22.0-30.0) sec Potassium (3.5-5.1) mmol/L Chloride 112 H (98-107) mmol/L Carbon Dioxide (22-30) mmol/L BUN 38 H (7-17) mg/dL Creatinine 1.42 H (0.52-1.04) mg/dL Glucose (74-99) mg/dL POC Glucose (mg/dL) 104 H (75-99) mg/dL AST (14-36) U/L Alkaline Phosphatase 28 L (38-126) U/L Total Protein 5.1 L (6.3-8.2) g/dL Albumin 2.9 L (3.5-5.0) g/dL Thrombosis Risk Factor Assmnt - DVT/VTE Prophylaxis DVT/VTE Prophylaxis: Mechanical Prophylaxis ordered - Choose All That Apply Each Factor Represents 1 point: Obesity (BMI >25) Each Risk Factor Represents 3 Points: Age 75 years or older Thrombosis Risk Factor Assessment Total Risk Factor Score: 4 Thrombosis Risk Factor Assessment Level: Moderate Risk Assessment and Plan Assessment: Assessment and plan: 1. Syncope likely due to vasovagual due to straining with acute blood loss anemia. patient was placed on the monitor and she was placed on IVF and had doubutamine stress echo that was negative for stress-induced ischemia, we will check orthostatics. 2. Acute blood loss anemia likely related to cecum AVM bleed. we will consult GI fo EGD and Colonoscopy, we will continue with Protonix 40 mg IVP bid, and we will transfuse one unit of PRBCs to keep her Hemoglobin around 8. Hold xarelto and ASA. 3. Paroxysmal atrial fibrillation. We will continue patient on metoprolol 50 mg orally twice every day , hold Xarelto and ASA. 4. History of coronary artery disease status post three-vessel CABG in 1995. Continue patient on metoprolol 50 mg orally twice every day as well as Lipitor 80 mg orally once every day, we will hold ASA. 5. Carotid artery disease status post carotid endarterectomy. Stable patient has had a CTA of the carotid arteries in the past. we ill continue with Lipitor 80 mg orally daily for secondary prevention and we will hold ASA due to GI bleed. 6. Diabetes mellitus type 2, insulin requiring. Continue Levemir 14 units at bedtime and NovoLog scale before meals and at bedtime, Tradjenta 5 mg daily. Continue Accu-Chek before each meal and at bedtime along with a sliding scale insulin. 7. 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 Continue metoprolol 50 mg orally twice every day, lisinopril 30 mg orally twice every day at amlodipine 5 mg orally once every day . 8. Hyperlipidemia. Continue Lipitor 80 mg daily. 9. Chronic vertigo. Stable. 10. Gastroesophageal reflux disease. Continue Protonix 40 mg IVP bid. 11. Hyperkalemia. post treatment, last potassium 4.5. 12. DVT prophylaxis. we will continue with bilateral knee -high NIXON hose. 13. GI prophylaxis. Continue patient on Protonix 40 mg IVP bid. 14. Admitted to inpatient. Estimate a length of stay 2 midnights . 15. Patient is no code.
[2020-09-12] MEDS: SODIUM CHLORIDE 0.9% 1,000 ML IV SCH ×2 (06:18→17:30)
[2020-09-12 06:19] LABS: Glucose,Whole Blood 89 mg/dL (75-99)
[2020-09-12 08:15] LABS: Anisocytosis Slight; Basophils # (A) 0.1 k/uL (0-0.2); Basophils % (A) 1 %; Eosinophils # (A) 0.3 k/uL (0-0.7); Eosinophils % (A) 4 %; HCT 29.7 % (34.0-46.0); Hypochromasia Slight; Lymphocytes # (A) 1.9 k/uL (1.0-4.8); Lymphocytes % (A) 24 %; MCH 29.8 pg (25.0-35.0); MCHC 31.5 g/dL (31.0-37.0); MCV 94.5 fL (80.0-100.0); Mean Platelet Volume 8.9; Monocytes # (A) 0.6 k/uL (0-1.0); Monocytes % (A) 8 %; Neutrophils # (A) 4.7 k/uL (1.3-7.7); Neutrophils % (A) 61 %; Platelet Count 217 k/uL (150-450); RBC 3.14 m/uL (3.80-5.40); WBC 7.8 k/uL (3.8-10.6)
[2020-09-12 08:20] LABS: HGB 9.4 gm/dL (11.4-16.0)
[2020-09-12 08:37] LABS: Albumin 3.1 g/dL (3.5-5.0); Calcium 8.7 mg/dL (8.4-10.2); Potassium 4.2 mmol/L (3.5-5.1); Total Bilirubin 2.4 mg/dL (0.2-1.3); Total Protein 5.4 g/dL (6.3-8.2)
[2020-09-12] MEDS: amLODIPine 2.5 MG TAB PO SCH (08:45)
[2020-09-12] MEDS: PANTOPRAZOLE 40 MG/10 ML VIAL IVP SCH ×2 (08:45→21:10)
[2020-09-12] MEDS: polyethylene glycoL 3350 17 GM POWD.PACK PO SCH (08:46)
--- NOTE | 2020-09-12 09:07 | P.PN ---
Subjective This is a pleasant 89-year-old female past medical history significant for coronary artery disease status post bypass grafting in 1995, paroxysmal atrial fibrillation on long-term anticoagulation with Xarelto, peripheral vascular disease status post carotid endarterectomy, hypertension, dyslipidemia, diabetes mellitus and prior history of GI bleeding. She follows in the office with Dr. Colin. She is seen and examined resting comfortably lying flat in bed in no acute distress. She denies symptoms of chest pain, shortness of breath or palpitations. She states most days she has symptoms of dizziness like the room is spinning. Orthostatic vital signs obtained yesterday revealed a supine blood pressure 186/72 and a standing blood pressure of 165/68. Laboratory data reviewed, WBC 7.8, hemoglobin 9.4, platelets 217, sodium 142, potassium 4.2, creatinine 1.33. Telemetry tracings reveal persistent sinus mechanism with no acute bradycardia arrhythmia noted. GENERAL: Well-appearing, well-nourished and in no acute distress. NECK: Supple without JVD or thyromegaly. LUNGS: Breath sounds clear to auscultation bilaterally. Respiration equal and unlabored. No wheezes, rales or rhonchi. HEART: Regular rate and rhythm with systolic ejection murmur at the base, no rubs or gallops. S1 and S2 heard. EXTREMITIES: Normal range of motion, no edema. No clubbing or cyanosis. Peripheral pulses intact. ASSESSMENT Syncope Anemia, acute on chronic. Improved after transfusion of PRBC x1 Hyperkalemia on admission, resolved Aortic stenosis Coronary artery disease status post bypass grafting Paroxysmal atrial fibrillation on Xarelto currently maintaining sinus mechanism PLAN No evidence of bradycardia arrhythmia noted on telemetry. Echocardiogram has been obtained and will be reviewed. Recommend holding Xarelto on discharge, follow-up with Dr. Colin in the office and await GI recommendations for resuming. Nurse Practitioner note has been reviewed, I agree with a documented findings and plan of care. Patient was seen and examined. Objective - Vital Signs Vital signs: Vital Signs Temp 97.5 F L 09/12/20 08:13 Pulse 73 09/12/20 08:13 Resp 16 09/12/20 08:13 BP 177/51 09/12/20 08:13 Pulse Ox 96 09/12/20 08:13 Intake & Output 12/21/20 12/22/20 12/22/20 18:59 06:59 18:59 Intake Total 570 80 Output Total 500 Balance 570 -420 Intake: IV 160 Sodium Chloride 0.9% 1, 160 000 ml @ 100 mls/hr IV . Q10H [facility] Rx#:[id number] Oral 100 80 Blood Product 310 Rc As-1 Unit 310 [id number] Output: Stool 500 Other: Voiding Method Bedside Commode Bedside Commode # Voids 1 0 # Bowel Movements 1 0 - Labs CBC & Chem 7: 09/12/20 07:15 09/12/20 07:15 Labs: Abnormal Lab Results - Last 24 Hours (Table) 09/10/20 09/11/20 09/11/20 Range/Units 23:41 11:37 16:33 RBC (3.80-5.40) m/uL Hgb (11.4-16.0) gm/dL Hct (34.0-46.0) % RDW (11.5-15.5) % Chloride (98-107) mmol/L BUN (7-17) mg/dL Creatinine (0.52-1.04) mg/dL POC Glucose (mg/dL) 118 H 136 H (75-99) mg/dL Total Bilirubin (0.2-1.3) mg/dL Alkaline Phosphatase (38-126) U/L Total Protein (6.3-8.2) g/dL Albumin (3.5-5.0) g/dL Crossmatch See Detail 09/11/20 09/12/20 09/12/20 Range/Units 21:00 07:15 07:15 RBC 3.14 L (3.80-5.40) m/uL Hgb 9.4 L D (11.4-16.0) gm/dL Hct 29.7 L (34.0-46.0) % RDW 17.0 H (11.5-15.5) % Chloride 113 H (98-107) mmol/L BUN 31 H (7-17) mg/dL Creatinine 1.33 H (0.52-1.04) mg/dL POC Glucose (mg/dL) 135 H (75-99) mg/dL Total Bilirubin 2.4 H (0.2-1.3) mg/dL Alkaline Phosphatase 28 L (38-126) U/L Total Protein 5.4 L (6.3-8.2) g/dL Albumin 3.1 L (3.5-5.0) g/dL Crossmatch
[2020-09-12] MEDS: METOPROLOL TARTRATE 50 MG TAB PO SCH ×2 (09:21→21:11)
[2020-09-12] MEDS: LINAGLIPTIN 5 MG TABLET PO SCH (09:21)
[2020-09-12] MEDS: ALPRAZolam 0.5 MG TAB PO SCH ×2 (09:21→21:11)
[2020-09-12] MEDS: FERROUS SULFATE 325 MG TAB PO SCH ×2 (09:21→17:28)
[2020-09-12] MEDS: DICLOFENAC 0.1% OPHTH SOLN 2.5 ML BTL LEFT EYE SCH ×2 (09:22→17:29)
--- NOTE | 2020-09-12 10:00 | ECHOF ---
Referral Reason:Syncope MEASUREMENTS -------- HEIGHT: 157.5 cm WEIGHT: 63.5 kg BP: RVIDd: 3.0 cm (< 3.3) IVSd: 1.1 cm (0.6 - 1.1) LVIDd: 5.4 cm (3.9 - 5.3) LVPWd: 0.9 cm (0.6 - 1.1) IVSs: 1.7 cm LVIDs: 3.2 cm LVPWs: 1.3 cm LA Diam: 4.1 cm (2.7 - 3.8) Ao Diam: 2.6 cm (2.0 - 3.7) AV Cusp: 1.0 cm (1.5 - 2.6) LA Diam: 4.8 cm (2.7 - 3.8) MV EXCURSION: 19.089 mm (> 18.000) MV EF SLOPE: 31 mm/s (70 - 150) EPSS: 0.6 cm MV E Kar: 0.78 m/s MV DecT: 147 ms MV A Kar: 0.75 m/s MV E/A Ratio: 1.04 RAP: 5.00 mmHg RVSP: 48.77 mmHg FINDINGS -------- Sinus rhythm. This was a technically good study. The left ventricular size is normal. Overall left ventricular systolic function is low-normal with, an EF between 50 - 55 %. Basal inferior LV wall motion is hypokinetic. The right ventricle is normal in size. Paradoxical motion of the right ventricular septum is consis tent with post operative status. The left atrium is moderately dilated. The right atrial size is normal. There is mild aortic valve sclerosis. There is no evidence of aortic regurgitation. Mild mitral annular calcification present. Mild mitral regurgitation is present. Mild tricuspid regurgitation present. Right ventricular systolic pressure is normal at < 35 mmHg. There is no pulmonic regurgitation present. The aortic root size is normal. There is no pericardial effusion. CONCLUSIONS -------- 1. The left ventricular size is normal. 2. Overall left ventricular systolic function is low-normal with, an EF between 50 - 55 %. 3. Basal inferior LV wall motion is hypokinetic. 4. The right ventricle is normal in size. 5. Paradoxical motion of the right ventricular septum is consistent with post operative status. 6. The left atrium is moderately dilated. 7. The right atrial size is normal. 8. There is mild aortic valve sclerosis. 9. Mild mitral annular calcification present. 10. Mild mitral regurgitation is present. 11. Mild tricuspid regurgitation present. 12. There is no pulmonic regurgitation present. 13. The aortic root size is normal. 14. There is no pericardial effusion. TRACK PATROL: Catie Boland RDCS
--- NOTE | 2020-09-12 12:09 | P.PN ---
Subjective Progress Note Date: 09/12/20 Principal diagnosis: Anemia This patient is a pleasant 89-year-old white female who was admitted to the hospital because of symptomatic anemia and an episode of syncope. She states she has been having dark stools, however she is on oral iron at home. She states she did have a bowel movement yesterday and today which she states continued to be dark. She has a history of atrial fibrillation and cardiac bypass surgery who has been treated with Xarelto is currently on hold. She is status post 1 unit of PRBC, her hemoglobin is stable today at 9.4. She denies any abdominal pain, nausea, or vomiting. She is tolerating a clear liquid diet. She underwent a small bowel video capsule endoscopy yesterday evening which showed proximal duodenal bleed, with active bleeding and oozing. There was also a small clot noted in the proximal jejunum. Objective - Vital Signs Vital signs: Vital Signs Temp 97.5 F L 09/12/20 08:13 Pulse 73 09/12/20 08:13 Resp 16 09/12/20 08:13 BP 177/51 09/12/20 08:13 Pulse Ox 96 09/12/20 08:13 Intake & Output 09/11/20 09/12/20 09/12/20 18:59 06:59 18:59 Intake Total 570 80 500 Output Total 500 Balance 570 -420 500 Intake: IV 160 300 Sodium Chloride 0.9% 1, 160 300 000 ml @ 100 mls/hr IV . Q10H [facility] Rx#:[id number] Oral 100 80 200 Blood Product 310 Rc As-1 Unit 310 [id number] Output: Stool 500 Other: Voiding Method Bedside Commode Bedside Commode Bedside Commode # Voids 1 0 1 # Bowel Movements 1 0 - Exam General appearance: The patient is alert, oriented, in no acute distress. HET: Head is normocephalic and atraumatic. Conjunctiva pink. Sclera anicteric. Neck: Supple without lymphadenopathy. Abdomen: Soft, nontender, nondistended with bowel sounds. No guarding or rigidity. Extremities: Normal skin color and turgor. No pedal edema Neurological: No focal deficits. Alert and oriented 3. - Labs CBC & Chem 7: 09/12/20 07:15 09/12/20 07:15 Labs: Abnormal Lab Results - Last 24 Hours (Table) 09/10/20 09/11/20 09/11/20 Range/Units 23:41 11:37 16:33 RBC (3.80-5.40) m/uL Hgb (11.4-16.0) gm/dL Hct (34.0-46.0) % RDW (11.5-15.5) % Chloride (98-107) mmol/L BUN (7-17) mg/dL Creatinine (0.52-1.04) mg/dL POC Glucose (mg/dL) 118 H 136 H (75-99) mg/dL Total Bilirubin (0.2-1.3) mg/dL Alkaline Phosphatase (38-126) U/L Total Protein (6.3-8.2) g/dL Albumin (3.5-5.0) g/dL Crossmatch See Detail 09/11/20 09/12/20 09/12/20 Range/Units 21:00 07:15 07:15 RBC 3.14 L (3.80-5.40) m/uL Hgb 9.4 L D (11.4-16.0) gm/dL Hct 29.7 L (34.0-46.0) % RDW 17.0 H (11.5-15.5) % Chloride 113 H (98-107) mmol/L BUN 31 H (7-17) mg/dL Creatinine 1.33 H (0.52-1.04) mg/dL POC Glucose (mg/dL) 135 H (75-99) mg/dL Total Bilirubin 2.4 H (0.2-1.3) mg/dL Alkaline Phosphatase 28 L (38-126) U/L Total Protein 5.4 L (6.3-8.2) g/dL Albumin 3.1 L (3.5-5.0) g/dL Crossmatch Assessment and Plan Assessment: 1. Dizziness, lightheadedness and questionable syncope 2. Anemia with drop in hemoglobin from 9.1-7.8. Clinically no evidence of active bleeding. The patient has had questionable dark-colored stools for the last few weeks. The patient is status post EGD colonoscopy by Dr. 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 Possibility of small bowel source of occult blood loss cannot be excluded. Small bowel video capsule endoscopy showed proximal duodenal bleed, with active bleeding. Patient will be scheduled for upper endoscopy tomorrow. 3. Atrial fibrillation on [place] 4. History of coronary artery disease, status post CABG many years ago 5. History of diabetes mellitus and hypertension/hyperlipidemia Plan: 1. Small bowel video capsule endoscopy ordered and reviewed 2. Continue to hold Xarelto 3. Monitor CBC daily 4. Clear Liquid diet, NPO after midnight 4. Patient is scheduled for upper endoscopy tomorrow Dr. Gagan Nazario I agree with the dictator's note, documented as a scribe by Lilian Ballesteros.
[2020-09-12 12:31] LABS: Glucose,Whole Blood 105 mg/dL (75-99)
[2020-09-12 16:14] LABS: Glucose,Whole Blood 85 mg/dL (75-99)
[2020-09-12 16:26] LABS: Glucose,Whole Blood 100 mg/dL (75-99)
[2020-09-12] MEDS: LACTATED RINGERS 1,000 ML IV SCH (17:40)
--- NOTE | 2020-09-12 17:58 | P.PN ---
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, patient presented to the emergency department at [facility] because of syncopal episode, she was helping her daughter getting her laundry done and she has not had a boel movement soshe went to have a bowel movement and was straining when she developed a syncopal episode, her daughter called 911 and she was transported to the ER at [facility], her hemoglobin was 9.1 and her potassium was elevated at 6 with slight elevation of AST, and her UA showed 21 WBCs along with negative nitrite and low squamous epithelial cells, she was admitted to the [facility] and her hemoglobin did drop to 7.8 next day and she was seen in cnsultation by cardiology and GI and she underwent dobutamine stress test juanita was negative for stress induced ischemia and alos talked to her about having clonoscopy done due to the AVM that she had in [place] and she said she will think about it, patient will be given one unit of PRBCs and we will continue wth Protonix 40 mg IVP Q 12 hours and she will be admitted as an inpatient. 09/12: patient is doing ok, she denies any chest pain or shortness of breath, she wanted to have her colonoscopy and we will let GI know, she denies any abdominal pain , nausea, vomiting or diarrhea, her HGB is 9.4 post 1 units of PRBCs. Objective - Vital Signs Vital signs: Vital Signs Temp 97.8 F 09/12/20 03:25 Pulse 63 09/12/20 03:25 Resp 16 09/11/20 17:57 BP 151/65 09/12/20 03:25 Pulse Ox 96 09/12/20 03:25 Intake & Output 09/11/20 09/11/20 09/12/20 06:59 18:59 06:59 Intake Total 0 570 80 Output Total 925 500 Balance -925 570 -420 Weight 63.503 kg Intake: IV 160 Sodium Chloride 0.9% 1, 160 000 ml @ 100 mls/hr IV . Q10H [facility] Rx#:[id number] Oral 0 100 80 Blood Product 310 Rc As-1 Unit 310 [id number] Output: Urine 925 Stool 500 Other: Voiding Method Toilet Bedside Commode Bedside Commode # Voids 1 1 0 # Bowel Movements 1 0 - Exam Review of Systems Constitutional: Reports anorexia, Reports fatigue, Reports malaise, Reports weakness, Reports weight loss Eyes: bilateral blurred vision, bilateral decreased vision, denies bulging eye Ears: bilateral: decreased hearing Ears, nose, mouth and throat: Denies dysphagia, Denies neck lump, Denies sore throat Cardiovascular: Reports decreased exercise tolerance, Reports dyspnea on exertion, Reports lightheadedness, Reports shortness of breath, Reports syncope, Denies chest pain, Denies rapid heart beat Respiratory: Denies congestion, Denies cough, Denies cough with sputum, Denies home oxygen, Denies sleep apnea, Denies snoring, Denies wheezing Gastrointestinal: Reports abdominal pain, Reports constipation, Reports loss of appetite, Reports melena, Reports nausea, Denies BRBPR, Denies vomiting Genitourinary: Denies dysuria, Denies nocturia Menstruation: Reports postmenopausal Musculoskeletal: Denies myalgias Musculoskeletal: absent: ankle pain, ankle stiffness, ankle swelling, elbow pain, elbow stiffness, elbow swelling, foot pain, foot stiffness, foot swelling, hand pain, hand stiffness, hand swelling, hip pain, hip stiffness, hip swelling, knee pain, knee stiffness, knee swelling, shoulder pain, shoulder stiffness, shoulder swelling, wrist pain, wrist stiffness, wrist swelling Integumentary: Denies pruritus, Denies rash Neurological: Reports syncope, Denies numbness, Denies weakness Psychiatric: Reports anxiety, Reports sleep disturbances, Denies suicidal id eation Endocrine: Denies fatigue, Denies weight change Physical examination: HEENT: Head is atraumatic, normocephalic, pupils were equal round reactive to light and accommodations, extraocular muscle movement were intact. Oral mucous membranes are dry patient sounded to the upper and lower lip. Neck: Supple, no JVP, decreased carotid upstroke bilaterally. Chest: Decreased breath sounds at the bases, there is no chest wall tenderness no intercostal retractions there is no expiratory wheezes. Heart: First heart sound is depressed, second heart sounds normal, there is systolic murmur 2/6 located at the right second intercostal space related to the base of the neck per Abdomen: Soft, nontender, nondistended, positive bowel sounds. Extremities: No pedal edema bilaterally, dorsalis pedis palpable bilaterally. No calf tenderness. Neurologic examination: Patient is awake and alert and oriented 3. No focal neuro deficits. Cranial nerves III-12 appear grossly intact. - Labs CBC & Chem 7: 09/12/20 07:15 09/12/20 07:15 Labs: Abnormal Lab Results - Last 24 Hours (Table) 09/10/20 09/11/20 09/11/20 Range/Units 23:41 06:52 07:15 RBC 2.47 L (3.80-5.40) m/uL Hgb 7.8 L (11.4-16.0) gm/dL Hct 24.1 L (34.0-46.0) % RDW 15.7 H (11.5-15.5) % Chloride (98-107) mmol/L BUN (7-17) mg/dL Creatinine (0.52-1.04) mg/dL POC Glucose (mg/dL) 104 H (75-99) mg/dL Alkaline Phosphatase (38-126) U/L Total Protein (6.3-8.2) g/dL Albumin (3.5-5.0) g/dL Crossmatch See Detail 09/11/20 09/11/20 09/11/20 Range/Units 07:15 11:37 16:33 RBC (3.80-5.40) m/uL Hgb (11.4-16.0) gm/dL Hct (34.0-46.0) % RDW (11.5-15.5) % Chloride 112 H (98-107) mmol/L BUN 38 H (7-17) mg/dL Creatinine 1.42 H (0.52-1.04) mg/dL POC Glucose (mg/dL) 118 H 136 H (75-99) mg/dL Alkaline Phosphatase 28 L (38-126) U/L Total Protein 5.1 L (6.3-8.2) g/dL Albumin 2.9 L (3.5-5.0) g/dL Crossmatch 09/11/20 Range/Units 21:00 RBC (3.80-5.40) m/uL Hgb (11.4-16.0) gm/dL Hct (34.0-46.0) % RDW (11.5-15.5) % Chloride (98-107) mmol/L BUN (7-17) mg/dL Creatinine (0.52-1.04) mg/dL POC Glucose (mg/dL) 135 H (75-99) mg/dL Alkaline Phosphatase (38-126) U/L Total Protein (6.3-8.2) g/dL Albumin (3.5-5.0) g/dL Crossmatch Assessment and Plan Assessment: Assessment and plan: 1. Syncope likely due to vasovagual due to straining with acute blood loss anemia. patient was placed on the monitor and she was placed on IVF and had doubutamine stress echo that was negative for stress-induced ischemia. better. 2. Acute blood loss anemia likely related to cecum AVM bleed. we will consult GI fo EGD and Colonoscopy, we will continue with Protonix 40 mg IVP bid, post one unit of PRBCs to keep her Hemoglobin around 8. Hold xarelto and ASA. 3. Paroxysmal atrial fibrillation. We will continue patient on metoprolol 50 mg orally twice every day , hold Xarelto and ASA. 4. History of coronary artery disease status post three-vessel CABG in 1995. C ontinue patient on metoprolol 50 mg orally twice every day as well as Lipitor 80 mg orally once every day, we will hold ASA. 5. Carotid artery disease status post carotid endarterectomy. Stable patient has had a CTA of the carotid arteries in the past. we ill continue with Lipitor 80 mg orally daily for secondary prevention and we will hold ASA due to GI bleed. 6. Diabetes mellitus type 2, insulin requiring. Continue Levemir 14 units at bedtime and NovoLog scale before meals and at bedtime, Tradjenta 5 mg daily. Continue Accu-Chek before each meal and at bedtime along with a sliding scale insulin. 7. 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 Continue metoprolol 50 mg orally twice every day, lisinopril 30 mg orally twice every day at amlodipine 5 mg orally once every day . 8. Hyperlipidemia. Continue Lipitor 80 mg daily. 9. Chronic vertigo. Stable. 10. Gastroesophageal reflux disease. Continue Protonix 40 mg IVP bid. 11. Hyperkalemia. post treatment, last potassium 4.5. 12. DVT prophylaxis. we will continue with bilateral knee -high NIXON hose. 13. GI prophylaxis. Continue patient on Protonix 40 mg IVP bid. 14. no code.
[2020-09-12 20:01] LABS: Glucose,Whole Blood 120 mg/dL (75-99)
[2020-09-12] MEDS: lisinopriL 20 MG TAB PO SCH (21:10)
[2020-09-12] MEDS: ATORVASTATIN 80 MG TAB PO SCH (21:11)
[2020-09-12] MEDS: INSULIN DETEMIR (LEVEMIR) 100 UNIT/ML SYR SQ SCH (21:11)
[2020-09-13] MEDS: ACETAMINOPHEN TAB 325 MG TAB PO SCH ×4 (00:28→17:16)
[2020-09-13] MEDS: SODIUM CHLORIDE 0.9% 1,000 ML IV SCH ×3 (03:04→23:19)
[2020-09-13 07:04] LABS: Glucose,Whole Blood 62 mg/dL (75-99)
[2020-09-13] MEDS ORDERED: DEXTROSE 50% SYRINGE 50 ML IVP STA (07:45)
[2020-09-13 08:02] LABS: Anisocytosis Slight; Basophils # (A) 0.1 k/uL (0-0.2); Basophils % (A) 1 %; Eosinophils # (A) 0.2 k/uL (0-0.7); Eosinophils % (A) 3 %; HCT 26.9 % (34.0-46.0); HGB 8.6 gm/dL (11.4-16.0); Hypochromasia Moderate; Lymphocytes # (A) 1.1 k/uL (1.0-4.8); Lymphocytes % (A) 15 %; MCH 30.5 pg (25.0-35.0); MCHC 31.8 g/dL (31.0-37.0); Mean Platelet Volume 9.1; Monocytes # (A) 0.4 k/uL (0-1.0); Monocytes % (A) 6 %; Neutrophils # (A) 5.5 k/uL (1.3-7.7); Neutrophils % (A) 75 %; Platelet Count 195 k/uL (150-450); RDW 16.6 % (11.5-15.5); WBC 7.3 k/uL (3.8-10.6)
[2020-09-13] MEDS ORDERED: PROPOFOL 10 MG/ML 20 ML VIAL IV ONE (08:02)
[2020-09-13] MEDS ORDERED: LIDOCAINE 1% INJ 10MG/ML (20 ML MDV) ONE (08:02)
[2020-09-13] MEDS ORDERED: IV FLUID CONTINUATION 1,000 ML IV ONE (08:02)
[2020-09-13 08:12] LABS: Albumin 2.7 g/dL (3.5-5.0); Calcium 8.1 mg/dL (8.4-10.2); Total Bilirubin 1.2 mg/dL (0.2-1.3); Total Protein 4.9 g/dL (6.3-8.2)
--- NOTE | 2020-09-13 08:19 | P.PCN ---
Date of Procedure: 09/13/20 Procedure(s) Performed: BRIEF HISTORY: Patient is a 89-year-old, pleasant, male in the hospital with acute GI bleed and anemia. She presented with a hemoglobin of 7.4 g/dL and intermittent black tarry stools. She has history of A. fib on a Eliquis which is currently on hold. EGD and colonoscopy done in 02/2020 by revealed mild gastritis and cecal AVM that was cauterized. Because of recurrent GI bleeding he had a small bowel capsule endoscopy done yesterday that revealed active oozing in the proximal duodenum and hence scheduled for an upper endoscopy to evaluate further. PROCEDURE PERFORMED: Esophagogastroduodenoscopy with cautery. PREOPERATIVE DIAGNOSIS: Acute GI bleed. IV sedation per anesthesia. PROCEDURE: After informed consent was obtained, the patient was brought into the endoscopy unit. IV sedation was administered by Anesthesia under continuous monitoring. Initially the Olympus GIF-140 video endoscope was inserted into the mouth. Esophagus intubated without any difficulty. It was gradually advanced into the stomach and duodenum and carefully examined. The bulb and the second part of the duodenum had scattered angiectasia identified with no active bleeding. Cautery was performed using a gold probe. The scope at this time was withdrawn to the stomach, adequately insufflated with air, and upon careful examination, mucosa of the antrum, body, cardia and the fundus appeared normal. The scope was then withdrawn into the esophagus. The GE junction was located at 39 cm from the incisors. The esophagus appeared normal. There were no erosions or ulcerations seen and the patient tolerated the procedure well. IMPRESSION: 1. Scattered duodenal angiectasia with no active bleeding status post cautery using a gold probe. 2. Small hiatal hernia. RECOMMENDATIONS: The findings of this examination were discussed with the patient . Diet will be advanced as tolerated. Resume Eliquis in 2-3 days.
[2020-09-13 08:23] LABS: Glucose,Whole Blood 139 mg/dL (75-99)
--- NOTE | 2020-09-13 09:00 | PN ---
PROGRESS NOTE This is an elderly lady with a history of aortocoronary bypass surgery, paroxysmal atrial fibrillation, and peripheral arterial disease as well. She came in with GI bleeding requiring blood transfusion. She also has a small bowel series with a video capsule and is going for upper endoscopy today. Remains hemodynamically stable. Hyperkalemia issue has resolved. No chest pain. Stable functional capacity. Vital signs are stable. S1, S2 heard normally. Short systolic murmur is noted. Lungs reveal diminished air entry. Rest of physical exam is unchanged. I am recommending that we will not resume Xarelto. Await the results of endoscopy, wait at least 2 weeks and she will be evaluated by Dr. Colin in the office and who will then consider resuming Xarelto. Her hemoglobin has come up from 7.4 to 9.4, and we will recheck a hemoglobin before discharge. From a cardiac standpoint, no Xarelto. Can be discharged when okayed by GI after checking hemoglobin. MMODL / IJN: [id number] /
[2020-09-13] MEDS: PANTOPRAZOLE 40 MG/10 ML VIAL IVP SCH ×2 (09:30→22:54)
[2020-09-13] MEDS: METOPROLOL TARTRATE 50 MG TAB PO SCH ×2 (09:30→22:54)
[2020-09-13] MEDS: amLODIPine 2.5 MG TAB PO SCH (09:30)
[2020-09-13] MEDS: FERROUS SULFATE 325 MG TAB PO SCH ×2 (09:30→17:16)
[2020-09-13] MEDS: polyethylene glycoL 3350 17 GM POWD.PACK PO SCH (09:31)
[2020-09-13] MEDS: DICLOFENAC 0.1% OPHTH SOLN 2.5 ML BTL LEFT EYE SCH ×2 (09:31→17:16)
[2020-09-13] MEDS ORDERED: lisinopriL 10 MG TAB PO ONE (10:45)
[2020-09-13] MEDS: ALPRAZolam 0.5 MG TAB PO SCH ×2 (11:06→22:54)
[2020-09-13 11:39] LABS: Glucose,Whole Blood 65 mg/dL (75-99)
[2020-09-13] MEDS: LINAGLIPTIN 5 MG TABLET PO SCH (11:49)
[2020-09-13 12:34] LABS: Glucose,Whole Blood 72 mg/dL (75-99)
--- NOTE | 2020-09-13 15:58 | P.PN ---
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, patient presented to the emergency department at [facility] because of syncopal episode, she was helping her daughter getting her laundry done and she has not had a boel movement soshe went to have a bowel movement and was straining when she developed a syncopal episode, her daughter called 911 and she was transported to the ER at [facility], her hemoglobin was 9.1 and her potassium was elevated at 6 with slight elevation of AST, and her UA showed 21 WBCs along with negative nitrite and low squamous epithelial cells, she was admitted to the [facility] and her hemoglobin did drop to 7.8 next day and she was seen in cnsultation by cardiology and GI and she underwent dobutamine stress test juanita was negative for stress induced ischemia and alos talked to her about having clonoscopy done due to the AVM that she had in [place] and she said she will think about it, patient will be given one unit of PRBCs and we will continue wth Protonix 40 mg IVP Q 12 hours and she will be admitted as an inpatient. 09/12: patient is doing ok, she denies any chest pain or shortness of breath, she wanted to have her colonoscopy and we will let GI know, she denies any abdominal pain , nausea, vomiting or diarrhea, her HGB is 9.4 post 1 units of PRBCs. 09/13: patient underwent capsule endoscopy yesterday that showed duodenal bleed as well as Jejunal bleed, she had EGD today that showed the multiple duodenal telangiectasias that were cauterized using a cold probe, and her hemoglobin is stable we will contine t hold ASA and Xarelto at this point and we will continue with supportive care pending the results of the EGD, patent denies any chest pain o shortness of breath, no abdominal pain, nausea,vomiting or diarrhea. Objective - Vital Signs Vital signs: Vital Signs Temp 97.8 F 09/12/20 21:00 Pulse 63 09/12/20 21:00 Resp 16 09/13/20 02:22 BP 163/73 09/12/20 21:00 Pulse Ox 94 L 09/12/20 21:00 Intake & Output 09/12/20 09/12/20 09/13/20 06:59 18:59 06:59 Intake Total 80 1500 Output Total 500 500 Balance -420 1500 -500 Intake: IV 1000 Sodium Chloride 0.9% 1, 1000 000 ml @ 100 mls/hr IV . Q10H [facility] Rx#:[id number] Oral 80 500 Output: Stool 500 500 Other: Voiding Method Bedside Commode Bedside Commode Bedside Commode # Voids 0 3 0 # Bowel Movements 0 1 0 - Exam Review of Systems Constitutional: Reports anorexia, Reports fatigue, Reports malaise, Reports weakness, Reports weight loss Eyes: bilateral blurred vision, bilateral decreased vision, denies bulging eye Ears: bilateral: decreased hearing Ears, nose, mouth and throat: Denies dysphagia, Denies neck lump, Denies sore throat Cardiovascular: Reports decreased exercise tolerance, Reports dyspnea on exertion, Reports lightheadedness, Reports shortness of breath, Reports syncope, Denies chest pain, Denies rapid heart beat Respiratory: Denies congestion, Denies cough, Denies cough with sputum, Denies home oxygen, Denies sleep apnea, Denies snoring, Denies wheezing Gastrointestinal: Reports abdominal pain, Reports constipation, Reports loss of appetite, Reports melena, Reports nausea, Denies BRBPR, Denies vomiting Genitourinary: Denies dysuria, Denies nocturia Menstruation: Reports postmenopausal Musculoskeletal: Denies myalgias Musculoskeletal: absent: ankle pain, ankle stiffness, ankle swelling, elbow pain, elbow stiffness, elbow swelling, foot pain, foot stiffness, foot swelling, hand pain, hand stiffness, hand swelling, hip pain, hip stiffness, hip swelling, knee pain, knee stiffness, knee swelling, shoulder pain, shoulder stiffness, shoulder swelling, wrist pain, wrist stiffness, wrist swelling Integumentary: Denies pruritus, Denies rash Neurological: Reports syncope, Denies numbness, Denies weakness Psychiatric: Reports anxiety, Reports sleep disturbances, Denies suicidal ideation Endocrine: Denies fatigue, Denies weight change Physical examination: HEENT: Head is atraumatic, normocephalic, pupils were equal round reactive to light and accommodations, extraocular muscle movement were intact. Oral mucous membranes are dry patient sounded to the upper and lower lip. Neck: Supple, no JVP, decreased carotid upstroke bilaterally. Chest: Decreased breath sounds at the bases, there is no chest wall tenderness no intercostal retractions there is no expiratory wheezes. Heart: First heart sound is depressed, second heart sounds normal, there is systolic murmur 2/6 located at the right second intercostal space related to the base of the neck per Abdomen: Soft, nontender, nondistended, positive bowel sounds. Extremities: No pedal edema bilaterally, dorsalis pedis palpable bilaterally. No calf tenderness. Neurologic examination: Patient is awake and alert and oriented 3. No focal neuro deficits. Cranial nerves III-12 appear grossly intact. - Labs CBC & Chem 7: 09/13/20 07:22 09/13/20 07:22 Labs: Abnormal Lab Results - Last 24 Hours (Table) 09/12/20 09/12/20 09/12/20 Range/Units 07:15 07:15 12:29 RBC 3.14 L (3.80-5.40) m/uL Hgb 9.4 L D (11.4-16.0) gm/dL Hct 29.7 L (34.0-46.0) % RDW 17.0 H (11.5-15.5) % Chloride 113 H (98-107) mmol/L BUN 31 H (7-17) mg/dL Creatinine 1.33 H (0.52-1.04) mg/dL POC Glucose (mg/dL) 105 H (75-99) mg/dL Total Bilirubin 2.4 H (0.2-1.3) mg/dL Alkaline Phosphatase 28 L (38-126) U/L Total Protein 5.4 L (6.3-8.2) g/dL Albumin 3.1 L (3.5-5.0) g/dL 09/12/20 09/12/20 Range/Units 16:24 19:56 RBC (3.80-5.40) m/uL Hgb (11.4-16.0) gm/dL Hct (34.0-46.0) % RDW (11.5-15.5) % Chloride (98-107) mmol/L BUN (7-17) mg/dL Creatinine (0.52-1.04) mg/dL POC Glucose (mg/dL) 100 H 120 H (75-99) mg/dL Total Bilirubin (0.2-1.3) mg/dL Alkaline Phosphatase (38-126) U/L Total Protein (6.3-8.2) g/dL Albumin (3.5-5.0) g/dL Assessment and Plan Assessment: Assessment and plan: 1. Syncope likely due to vasovagual due to straining with acute blood loss anemia. patient was placed on the monitor and she was placed on IVF and had doubutamine stress echo that was negative for stress-induced ischemia. better. 2. Acute blood loss anemia likely related to duodenal bleed along with possible Jejunal bleed based on capsule endoscopy that was done yesterday, patient is scheduled for EGD today, we will continue with Protonix 40 mg IVP bid, post one unit of PRBCs to keep her Hemoglobin around 8. Hold xarelto and ASA. 3. Paroxysmal atrial fibrillation. We will continue patient on metoprolol 50 mg orally twice every day , hold Xarelto and ASA. 4. History of coronary artery disease status post three-vessel CABG in 1995. Continue patient on metoprolol 50 mg orally twice every day as well as Lipitor 80 mg orally once every day, we will hold ASA. 5. Carotid artery disease status post carotid endarterectomy. Stable patient has had a CTA of the carotid arteries in the past. we ill continue with Lipitor 80 mg orally daily for secondary prevention and we will hold ASA due to GI bleed. 6. Diabetes mellitus type 2, insulin requiring. Continue Levemir 14 units at bedtime and NovoLog scale before meals and at bedtime, Tradjenta 5 mg daily. Continue Accu-Chek before each meal and at bedtime along with a sliding scale insulin. 7. 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 Continue metoprolol 50 mg orally twice every day, lisinopril 30 mg orally twice every day at amlodipine 5 mg orally once every day . 8. Hyperlipidemia. Continue Lipitor 80 mg daily. 9. Chronic vertigo. Stable. 10. Gastroesophageal reflux disease. Continue Protonix 40 mg IVP bid. 11. Hyperkalemia. post treatment, last potassium 4.5. 12. DVT prophylaxis. we will continue with bilateral knee -high NIXON nuzhat. 13. GI prophylaxis. Continue patient on Protonix 40 mg IVP bid. 14. no code. 15. Advance diet as tolerated. 16. Home tomorrow morning.
[2020-09-13 16:58] LABS: Glucose,Whole Blood 102 mg/dL (75-99)
[2020-09-13] MEDS: LACTATED RINGERS 1,000 ML IV SCH (17:21)
[2020-09-13] MEDS: hydrALAZINE HCL 20 MG/ML 1 ML VIAL IVP PRN (17:21)
[2020-09-13 20:28] LABS: Glucose,Whole Blood 96 mg/dL (75-99)
[2020-09-13] MEDS: lisinopriL 20 MG TAB PO SCH (22:54)
[2020-09-13] MEDS: ATORVASTATIN 80 MG TAB PO SCH (22:54)
[2020-09-13] MEDS: INSULIN DETEMIR (LEVEMIR) 100 UNIT/ML SYR SQ SCH (22:55)
[2020-09-14] MEDS: ACETAMINOPHEN TAB 325 MG TAB PO SCH ×2 (02:35→06:04)
[2020-09-14] MEDS: PANTOPRAZOLE 40 MG/10 ML VIAL IVP SCH (08:09)
[2020-09-14 08:49] VITALS: BP 152/60; PULSE 70; RESP 14; TEMP 98
[2020-09-14] MEDS: polyethylene glycoL 3350 17 GM POWD.PACK PO SCH (08:49)
[2020-09-14] MEDS: FERROUS SULFATE 325 MG TAB PO SCH (08:53)
[2020-09-14] MEDS: METOPROLOL TARTRATE 50 MG TAB PO SCH (08:53)
[2020-09-14] MEDS: amLODIPine 2.5 MG TAB PO SCH (08:53)
[2020-09-14] MEDS: LINAGLIPTIN 5 MG TABLET PO SCH (08:53)
[2020-09-14] MEDS: ALPRAZolam 0.5 MG TAB PO SCH (08:53)
[2020-09-14] MEDS: DICLOFENAC 0.1% OPHTH SOLN 2.5 ML BTL LEFT EYE SCH (08:54)
[2020-09-14 09:18] LABS: Anisocytosis Slight; Basophils # (A) 0.1 k/uL (0-0.2); Basophils % (A) 1 %; Eosinophils # (A) 0.3 k/uL (0-0.7); Eosinophils % (A) 4 %; HCT 30.7 % (34.0-46.0); HGB 9.4 gm/dL (11.4-16.0); Hypochromasia Moderate; Lymphocytes # (A) 1.5 k/uL (1.0-4.8); Lymphocytes % (A) 19 %; MCH 29.8 pg (25.0-35.0); MCHC 30.7 g/dL (31.0-37.0); MCV 96.8 fL (80.0-100.0); Macrocytosis Slight; Mean Platelet Volume 9.1; Monocytes # (A) 0.7 k/uL (0-1.0); Monocytes % (A) 9 %; Neutrophils # (A) 5.3 k/uL (1.3-7.7); Neutrophils % (A) 65 %; Platelet Count 218 k/uL (150-450); RBC 3.17 m/uL (3.80-5.40); RDW 16.5 % (11.5-15.5); WBC 8.1 k/uL (3.8-10.6)
[2020-09-14 09:33] LABS: Calcium 8.2 mg/dL (8.4-10.2)
--- NOTE | 2020-09-14 10:36 | P.DS ---
Providers Date of admission: 09/11/20 11:11 Expected date of discharge: 09/14/20 Attending physician: Marilyn Nash Consults: 09/11/20 10:46 Consult Physician Urgent Consulting Provider: Dejan Stanley Consult Reason/Comments: syncope - found unresponsive on toilet Do you want consulting provider notified?: Yes 09/11/20 10:49 Consult Physician Urgent Consulting Provider: Moses Hackett Consult Reason/Comments: hgb 9.1 to 7.8, syncope Do you want consulting provider notified?: Yes Primary care physician: Marilyn Nash [facility] Course: This is an 89-year-old female one of mypatient with past medical history of coronary artery disease status post three-vessel CABG with FRIEDMAN to LAD and SVG to RCA back in 1995, carotid artery disease status post carotid endarterectomy in 2015, diabetes mellitus type 2, paroxysmal atrial fibrillation chronically on Xarelto, hypertension, hyperlipidemia, chronic vertigo 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, patient presented to the emergency department at [facility] because of syncopal episode, she was helping her daughter getting her laundry done and she has not had a boel movement soshe went to have a bowel movement and was straining when she developed a syncopal episode, her daughter called 911 and she was transported to the ER at [facility], her hemoglobin was 9.1 and her potassium was elevated at 6 with slight elevation of AST, and her UA showed 21 WBCs along with negative nitrite and low squamous epithelial cells, she was admitted to the hospital and her hemoglobin did drop to 7.8 next day and she was seen in cnsultation by cardiology and GI and she underwent dobutamine stress test juanita was negative for stress induced ischemia and alemelia talked to her about having c lonoscopy done due to the AVM that she had in Cec[place] and she said she will think about it, patient will be given one unit of PRBCs and we will continue wth Protonix 40 mg IVP Q 12 hours and she will be admitted as an inpatient. 09/12: patient is doing ok, she denies any chest pain or shortness of breath, she wanted to have her colonoscopy and we will let GI know, she denies any abdominal pain , nausea, vomiting or diarrhea, her HGB is 9.4 post 1 units of PRBCs. 09/13: patient underwent capsule endoscopy yesterday that showed duodenal bleed as well as Jejunal bleed, she had EGD today that showed the multiple duodenal telangiectasias that were cauterized using a cold probe, and her hemoglobin is stable we will contine t hold ASA and Xarelto at this point and we will continue with supportive care pending the results of the EGD, patent denies any chest pain o shortness of breath, no abdominal pain, nausea,vomiting or diarrhea. Discharge diagnoses: 1. Syncope likely due to vasovagual due to straining with acute blood loss anemia. patient was placed on the monitor and she was placed on IVF and had doubutamine stress echo that was negative for stress-induced ischemia. 2. Acute blood loss anemia likely related to duodenal bleed along with possible Jejunal bleed based on capsule endoscopy that was done along with EDG that showed Duodenl telangiectasias post cold probe treatment. 3. Paroxysmal atrial fibrillation. 4. History of coronary artery disease status post three-vessel CABG in 1995. 5. Carotid artery disease status post carotid endarterectomy. 6. Diabetes mellitus type 2, insulin requiring. 7. 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 8. Hyperlipidemia. 9. Chronic vertigo. 10. Gastroesophageal reflux disease. 11. Hyperkalemia. 12. DVT prophylaxis. 13. GI prophylaxis Patient Condition at Discharge: Stable Plan - Discharge Summary New Discharge Prescriptions: No Action Insulin Detemir [Levemir Flextouch] 14 units SQ HS@2200 Pantoprazole [Protonix] 40 mg PO HS@2200 Rivaroxaban [Xarelto] 15 mg PO HS@2200 Metoprolol Tartrate [Lopressor] 50 mg PO BID@1000,2200 Linagliptin [Tradjenta] 5 mg PO DAILY@1000 Ferrous Sulfate [Iron (65 MG Elemental)] 325 mg PO BID@1000,1700 Diclofenac 0.1% Ophth Soln [Voltaren 0.1% Ophth Soln] 1 drop LEFT EYE BID@1000,1700 Vit C/E/Zn/Coppr/Lutein/Zeaxan [Preservision Areds 2 Softgel] 1 cap PO BID@1000,1700 Hydrocodone/Acetaminophen [Dingess 5-325] 1 tab PO TID PRN #9 tab PRN Reason: Pain ALPRAZolam [Xanax] 0.5 mg PO BID@1000,2200 PRN PRN Reason: Anxiety Spironolactone [Aldactone] 25 mg PO DAILY PRN PRN Reason: Edema lisinopriL 30 mg PO HS@2200 Cranberry Fruit Extract [Cranberry] 1,000 mg PO DAILY@1700 Atorvastatin [Lipitor] 80 mg PO HS@2200 Aspirin 81 mg PO DAILY@1000 Acetaminophen Tab [Tylenol] 650 mg PO Q6HR hydroCHLOROthiazide [Hydrodiuril] 25 mg PO DAILY PRN PRN Reason: Edema amLODIPine [Norvasc] 5 mg PO DAILY PRN PRN Reason: Blood Pressure Discharge Medication List Insulin Detemir [Levemir Flextouch] 14 units SQ HS@219903/02/20 [History] Linagliptin [Tradjenta] 5 mg PO DAILY@1000 04/08/20 [History] Metoprolol Tartrate [Lopressor] 50 mg PO BID@1000,219904/08/20 [History] Pantoprazole [Protonix] 40 mg PO HS@219904/08/20 [History] Rivaroxaban [Xarelto] 15 mg PO HS@219904/08/20 [History] Diclofenac 0.1% Ophth Soln [Voltaren 0.1% Ophth Soln] 1 drop LEFT EYE BID@1000,169905/23/20 [History] Ferrous Sulfate [Iron (65 MG Elemental)] 325 mg PO BID@1000,169905/23/20 [History] Vit C/E/Zn/Coppr/Lutein/Zeaxan [Preservision Areds 2 Softgel] 1 cap PO BID@1000,169905/23/20 [History] Hydrocodone/Acetaminophen [Dingess 5-325] 1 tab PO TID PRN #9 tab 05/25/20 [Rx] ALPRAZolam [Xanax] 0.5 mg PO BID@1000,2200 PRN 06/21/20 [History] Acetaminophen Tab [Tylenol] 650 mg PO Q6HR 08/26/20 [History] Aspirin 81 mg PO DAILY@1000 08/26/20 [History] Atorvastatin [Lipitor] 80 mg PO HS@219908/26/20 [History] Cranberry Fruit Extract [Cranberry] 1,000 mg PO DAILY@1700 08/26/20 [History] Spironolactone [Aldactone] 25 mg PO DAILY PRN 08/26/20 [History] hydroCHLOROthiazide [Hydrodiuril] 25 mg PO DAILY PRN 08/26/20 [History] lisinopriL 30 mg PO HS@2200 08/26/20 [History] amLODIPine [Norvasc] 5 mg PO DAILY PRN 09/11/20 [History] Follow up Appointment(s)/Referral(s): Berlin Colin MD [STAFF PHYSICIAN] - 09/27/20 9:30 am () Marilyn Nash MD [Primary Care Provider] - 1-2 days Activity/Diet/Wound Care/Special Instructions: hold xeralto until you follow up with Dr. Colin on 2020.
--- NOTE | 2020-09-14 12:37 | PN ---
PROGRESS NOTE DATE OF DICTATION: September 14, 2020 Patient is an 89-year-old pleasant white female admitted to hospital with anemia and black tarry stools. He underwent an upper endoscopy yesterday that showed nonbleeding angioectasia in the bulb and second part of the duodenum that we cauterized. The patient is doing well now. No complaints. No abdominal pain. No nausea, vomiting. Repeat hemoglobin was 9.4 today. PHYSICAL EXAMINATION: She appears comfortable. No apparent distress. VITAL SIGNS: Stable. Blood pressure is 152/60, pulse rate 70, temperature 98. HEENT: Examination unremarkable. Conjunctivae pink. Sclerae anicteric. Oral cavity, no lesions. NECK: No JVD or lymph node enlargement. CHEST: Was clear to auscultation. HEART: Regular rate and rhythm. ABDOMEN: Soft. Bowel sounds are positive. No organomegaly. EXTREMITIES: No pedal edema. NEUROLOGIC: Alert and oriented x3. No focal deficits. LABS: Labs from today hemoglobin 9.4. IMPRESSION: 1. Acute gastrointestinal bleed. Small bowel capsule endoscopy done 2 days ago showed active oozing in the duodenum, status post EGD yesterday that showed nonbleeding angioectasia in the bulb and second part of the duodenum that was cauterized. The patient clinically doing well. Hemoglobin stable at 9.4 g/dL. 2. Anemia secondary to gastrointestinal blood loss. 3. Uncontrolled hypertension, doing much better now. RECOMMENDATION: 1. Advance diet as tolerated. 2. Monitor CBC closely. 3. Okay to resume Eliquis in 2-3 days. 4. We will follow with you. Thank you for this consultation. MMODL / IJN: [id number] /
[2020-09-14] MEDS ORDERED: PANTOPRAZOLE 40 MG TABLET PO SCH (17:30)
[2020-09-17 09:36] LABS: Glucose,Whole Blood 64 mg/dL (75-99)
[2020-09-17 09:37] LABS: Glucose,Whole Blood 77 mg/dL (75-99)
== END 2020-09-14 11:20 | disposition home or self-care (01) | DRG 378 ==
LOC: EC 19:41 → 1SOBS 20:53 → OBSVTOIN 09-11 11:11
PROVIDERS: ADMIT Internal Medicine; ATTEND Internal Medicine
PROC: 30233N1 Transfusion of Nonautologous Red Blood Cells into Peripheral Vein, Percutaneous Approach (ICD-10-PCS; 2020-09-13)
PROC: 0W3P8ZZ Control Bleeding in Gastrointestinal Tract, Via Natural or Artificial Opening Endoscopic (ICD-10-PCS; principal; 2020-09-13 07:30)
DX: K31.811 Angiodysplasia of stomach and duodenum with bleeding (principal); D62 Acute posthemorrhagic anemia; I13.0 Hypertensive heart and chronic kidney disease with heart failure and stage 1 through stage 4 chronic kidney disease, or unspecified chronic kidney disease; I42.9 Cardiomyopathy, unspecified; I48.20 Chronic atrial fibrillation, unspecified; E11.22 Type 2 diabetes mellitus with diabetic chronic kidney disease; E11.51 Type 2 diabetes mellitus with diabetic peripheral angiopathy without gangrene; E78.5 Hyperlipidemia, unspecified; E87.5 Hyperkalemia; I48.0 Paroxysmal atrial fibrillation; K44.9 Diaphragmatic hernia without obstruction or gangrene; K29.70 Gastritis, unspecified, without bleeding; Z20.828 Contact with and (suspected) exposure to other viral communicable diseases; K21.9 Gastro-esophageal reflux disease without esophagitis; I08.0 Rheumatic disorders of both mitral and aortic valves; H54.7 Unspecified visual loss; I50.9 Heart failure, unspecified; K59.00 Constipation, unspecified; R42 Dizziness and giddiness; N18.2 Chronic kidney disease, stage 2 (mild); I25.10 Atherosclerotic heart disease of native coronary artery without angina pectoris; I25.2 Old myocardial infarction; Z95.1 Presence of aortocoronary bypass graft; Z87.891 Personal history of nicotine dependence; Z86.73 Personal history of transient ischemic attack (TIA), and cerebral infarction without residual deficits; Z80.8 Family history of malignant neoplasm of other organs or systems; Z79.899 Other long term (current) drug therapy; Z79.82 Long term (current) use of aspirin; Z79.4 Long term (current) use of insulin; Z79.01 Long term (current) use of anticoagulants; Z88.8 Allergy status to other drugs, medicaments and biological substances; Z90.49 Acquired absence of other specified parts of digestive tract; Z90.89 Acquired absence of other organs; Z98.890 Other specified postprocedural states
CPT/HCPCS: 36415; 43255; 80048; 80053; 83735; 84484; 85025; 85610; 85730; 86850; 86900; 86901; 86920; 87635; 91110; 93005; 93306; 96361; 96365; 96366; 96375; 99285

== ENCOUNTER → 2020-11-16 | Outpatient (CLI) | payer MEDICARE, BC ==
--- NOTE | 2020-11-16 11:18 | FL ---
ESOPHOGRAM. HISTORY: Dysphagia Esophagram was performed per the air contrast technique. The patient swallowed barium and effervesce nt crystals without difficulty or delay. Esophageal peristalsis and motility appear to be within normal limits. There is no evidence for filling defect, mass or diverticulum. No hiatal hernia seen. Subsequently single contrast cervical esophagram was performed which fails demonstrate evidence for a spiration penetration or mass. IMPRESSION: Unremarkable study.
== END | disposition home or self-care (01) ==
LOC: RADUSWWP 10:02
PROVIDERS: ATTEND Internal Medicine
DX: R13.14 Dysphagia, pharyngoesophageal phase (principal)
CPT/HCPCS: 74220

== ENCOUNTER 2021-01-09 11:17 | Inpatient (IN) | payer MEDICARE, BC ==
[2021-01-09] MEDS ORDERED: SODIUM CHLORIDE 0.9% 1,000 ML IV STA (11:45)
[2021-01-09] MEDS ORDERED: DIPH,PERTUS(ACELL)TETVAC-LF 0.5 ML VIAL IM ONE (11:46)
[2021-01-09] MEDS ORDERED: SODIUM CHLORIDE 0.9% 500 ML 500 ML IV STA (11:46)
[2021-01-09] MEDS ORDERED: AMPICILLIN-SULBACTAM 3 GM in SODIUM CHLORIDE 0.9% 100 ML IVPB STA (11:47)
[2021-01-09 12:12] LABS: Basophils % (A) 0 %; Eosinophils # (A) 0.1 k/uL (0-0.7); Eosinophils % (A) 1 %; HCT 40.4 % (34.0-46.0); HGB 12.5 gm/dL (11.4-16.0); Hypochromasia Slight; Lymphocytes # (A) 0.9 k/uL (1.0-4.8); Lymphocytes % (A) 10 %; MCH 30.3 pg (25.0-35.0); MCHC 30.8 g/dL (31.0-37.0); MCV 98.3 fL (80.0-100.0); Mean Platelet Volume 8.5; Monocytes # (A) 0.9 k/uL (0-1.0); Monocytes % (A) 10 %; Neutrophils # (A) 7.2 k/uL (1.3-7.7); Neutrophils % (A) 77 %; Platelet Count 224 k/uL (150-450); RBC 4.11 m/uL (3.80-5.40); RDW 13.8 % (11.5-15.5); WBC 9.4 k/uL (3.8-10.6)
--- NOTE | 2021-01-09 12:15 | ED ---
General Adult HPI - General Chief complaint: Animal Bite Stated complaint: cat bite rt hand Time Seen by Provider: 01/09/21 11:31 Source: patient, RN notes reviewed Mode of arrival: wheelchair Limitations: physical limitation - History of Present Illness Initial comments: 89-year-old female with a past medical history of atrial fibrillation, CAD, heart failure, CVA, IDDM, GERD, hyperlipidemia, hypertension presents to the emergency room for a chief complaint of cat bite. Patient was bitten by a cat in the right hand last night. It was her friend's cat. The cat is up-to-date on rabies immunizations. However patient reports that it started streaking up her arm this morning. No fevers.Patient has no other complaints at this time including shortness of breath, chest pain, abdominal pain, nausea or vomiting, headache, or visual changes. - Related Data Home Medications Medication Instructions Recorded Confirmed Insulin Detemir [Levemir Flextouch] 14 units SQ HS@2200 03/02/20 01/09/21 Linagliptin [Tradjenta] 5 mg PO DAILY@1000 04/08/20 01/09/21 Metoprolol Tartrate [Lopressor] 50 mg PO BID 04/08/20 01/09/21 Ferrous Sulfate [Iron (65 MG 325 mg PO BID 05/23/20 01/09/21 Elemental)] Vit C/E/Zn/Coppr/Lutein/Zeaxan 1 cap PO BID 05/23/20 01/09/21 [Preservision Areds 2 Softgel] ALPRAZolam [Xanax] 0.5 mg PO BID PRN 06/21/20 01/09/21 Atorvastatin [Lipitor] 80 mg PO HS@2200 08/26/20 01/09/21 Cranberry Fruit Extract [Cranberry] 1,000 mg PO DAILY 08/26/20 01/09/21 lisinopriL 20 mg PO BID 08/26/20 01/09/21 Docusate [Colace] 100 mg PO HS 01/09/21 01/09/21 Furosemide [Lasix] 40 mg PO DAILY PRN 01/09/21 01/09/21 Pantoprazole [Protonix] 40 mg PO DAILY 01/09/21 01/09/21 Rivaroxaban [Xarelto] 15 mg PO HS 01/09/21 01/09/21 Allergies Allergy/AdvReac Type Severity Reaction Status Date / Time zolpidem [From Ambien] AdvReac Hallucinati Verified 01/09/21 13:09 ons Review of Systems ROS Statement: Those systems with pertinent positive or pertinent negative responses have been documented in the HPI. ROS Other: All systems not noted in ROS Statement are negative. Past Medical History Past Medical History: Atrial Fibrillation, Coronary Artery Disease (CAD), Chest Pain / Angina, Heart Failure, CVA/TIA, Diabetes Mellitus, Eye Disorder, GERD/Reflux, Hyperlipidemia, Hypertension, Myocardial Infarction (AR), Renal Disease, Syncope, Vascular Disorder Additional Past Medical History / Comment(s): L eye pain/optic ischemic neuropathy/TIA, EF 35% with mild aortic stenosis/mild mitral regurg. Other hx: IDDM type II, CKD stage II, TIAs, vertigo, weakness, gait disturbance/falls, bilateral hip and gluteal pain, paroxysmal A fib, anemia, L caratid disease 70%, hx of AVM of the cecum with cox plasma, anemia, macular degeneration bilaterally, L eye pain/optic ischemia, poor vision Last Myocardial Infarction Date:: 2017 History of Any Multi-Drug Resistant Organisms: None Reported Past Surgical History: Adenoidectomy, Coronary Bypass/CABG, Heart Catheterization, Orthopedic Surgery, Tonsillectomy Additional Past Surgical History / Comment(s): EGD, colonoscopies, 3 vessel CABG 1995 in [place], carotid endartectomy 2015, ORIF L ankle d/t fracture. Past Anesthesia/Blood Transfusion Reactions: No Reported Reaction Past Psychological History: No Psychological Hx Reported Smoking Status: Former smoker Past Alcohol Use History: None Reported Past Drug Use History: None Reported - Past Family History Mother Family Medical History: No Reported History Additional Family Medical History / Comment(s): Mother at age 82 from old age. Father Family Medical History: No Reported History Additional Family Medical History / Comment(s): Father from old age and patient does not recall his age or any medical problems. Son(s) Family Medical History: Cancer Additional Family Medical History / Comment(s): Patient has one son with history of throat cancer in remission. Patient has one daughter with no major medical problems. Patient does not have any brothers or sisters. General Exam Limitations: physical limitation General appearance: alert, in no apparent distress Head exam: Present: atraumatic, normocephalic, normal inspection Eye exam: Present: normal appearance, PERRL, EOMI. Absent: scleral icterus, conjunctival injection, periorbital swelling ENT exam: Present: normal exam, mucous membranes moist Neck exam: Present: normal inspection, full ROM. Absent: tenderness, meningismus, lymphadenopathy Respiratory exam: Present: normal lung sounds bilaterally. Absent: respiratory distress, wheezes, rales, rhonchi, stridor Cardiovascular Exam: Present: regular rate, normal rhythm, normal heart sounds. Absent: systolic murmur, diastolic murmur, rubs, gallop, clicks GI/Abdominal exam: Present: soft, normal bowel sounds. Absent: distended, tenderness, guarding, rebound, rigid Extremities exam: Present: other (erythema and edema noted of the dorsal first metacarpal head. Erythema extends up the right forearm to the right elbow. Small puncture wounds noted to the palmar and dorsal aspect of the right hand.) Course Vital Signs 01/09/21 11:21 Temperature 97.9 F Pulse Rate 67 Respiratory 18 Rate Blood Pressure 146/49 O2 Sat by Pulse 99 Oximetry EKG Findings - EKG Comments: EKG Findings:: normal sinus rhythm, ventricular rate 62, MT interval 194, QTC 426 Medical Decision Making - Medical Decision Making Vitals are stable. Patient is well-appearing. Patient does have significant erythema noted of the 2nd metacarpal head that is edematous and extends all the way to the elbow. CBC unremarkable. CMP does show mildly elevated potassium of 5.7. No EKG changes. This will be repeated. Repeat potassium was 5.8. discussed case with Dr. Nash given cellulitis does require admission at this time. Dr. Nash did request 15 mg of Kayexalate be given as well for hyperkalemia. - Lab Data Result diagrams: 01/09/21 11:53 01/09/21 12:52 Lab Results 01/09/21 01/09/21 01/09/21 Range/Units 11:53 11:53 11:53 WBC 9.4 (3.8-10.6) k/uL RBC 4.11 (3.80-5.40) m/uL Hgb 12.5 (11.4-16.0) gm/dL Hct 40.4 (34.0-46.0) % MCV 98.3 (80.0-100.0) fL MCH 30.3 (25.0-35.0) pg MCHC 30.8 L (31.0-37.0) g/dL RDW 13.8 (11.5-15.5) % Plt Count 224 (150-450) k/uL MPV 8.5 Neutrophils % 77 % Lymphocytes % 10 % Monocytes % 10 % Eosinophils % 1 % Basophils % 0 % Neutrophils # 7.2 (1.3-7.7) k/uL Lymphocytes # 0.9 L (1.0-4.8) k/uL Monocytes # 0.9 (0-1.0) k/uL Eosinophils # 0.1 (0-0.7) k/uL Basophils # 0.0 (0-0.2) k/uL Hypochromasia Slight Sodium 135 L (137-145) mmol/L Potassium 5.7 H (3.5-5.1) mmol/L Chloride 107 (98-107) mmol/L Carbon Dioxide 24 (22-30) mmol/L Anion Gap 4 mmol/L BUN 42 H (7-17) mg/dL Creatinine 1.59 H (0.52-1.04) mg/dL Est GFR (CKD-EPI)AfAm 33 (>60 ml/min/1.73 sqM) Est GFR (CKD-EPI)NonAf 29 (>60 ml/min/1.73 sqM) Glucose 147 H (74-99) mg/dL Plasma Lactic Acid Jose 0.9 (0.7-2.0) mmol/L Calcium 9.4 (8.4-10.2) mg/dL Total Bilirubin 0.8 (0.2-1.3) mg/dL AST 35 (14-36) U/L ALT 27 (4-34) U/L Alkaline Phosphatase 43 (38-126) U/L C-Reactive Protein 2.6 H (<1.0) mg/dL Total Protein 6.8 (6.3-8.2) g/dL Albumin 4.0 (3.5-5.0) g/dL 01/09/21 Range/Units 12:52 WBC (3.8-10.6) k/uL RBC (3.80-5.40) m/uL Hgb (11.4-16.0) gm/dL Hct (34.0-46.0) % MCV (80.0-100.0) fL MCH (25.0-35.0) pg MCHC (31.0-37.0) g/dL RDW (11.5-15.5) % Plt Count (150-450) k/uL MPV Neutrophils % % Lymphocytes % % Monocytes % % Eosinophils % % Basophils % % Neutrophils # (1.3-7.7) k/uL Lymphocytes # (1.0-4.8) k/uL Monocytes # (0-1.0) k/uL Eosinophils # (0-0.7) k/uL Basophils # (0-0.2) k/uL Hypochromasia Sodium (137-145) mmol/L Potassium 5.8 H (3.5-5.1) mmol/L Chloride (98-107) mmol/L Carbon Dioxide (22-30) mmol/L Anion Gap mmol/L BUN (7-17) mg/dL Creatinine (0.52-1.04) mg/dL Est GFR (CKD-EPI)AfAm (>60 ml/min/1.73 sqM) Est GFR (CKD-EPI)NonAf (>60 ml/min/1.73 sqM) Glucose (74-99) mg/dL Plasma Lactic Acid Jose (0.7-2.0) mmol/L Calcium (8.4-10.2) mg/dL Total Bilirubin (0.2-1.3) mg/dL AST (14-36) U/L ALT (4-34) U/L Alkaline Phosphatase (38-126) U/L C-Reactive Protein (<1.0) mg/dL Total Protein (6.3-8.2) g/dL Albumin (3.5-5.0) g/dL Disposition Clinical Impression: Cat bite Disposition: ADMITTED IP TO THIS HOSP Is patient prescribed a controlled substance at d/c from ED?: No Time of Disposition: 13:13
[2021-01-09 12:24] LABS: C Reactive Protein 2.6 mg/dL (<1.0); Calcium 9.4 mg/dL (8.4-10.2); Potassium 5.7 mmol/L (3.5-5.1); Total Bilirubin 0.8 mg/dL (0.2-1.3); Total Protein 6.8 g/dL (6.3-8.2)
--- NOTE | 2021-01-09 12:24 | XR ---
EXAMINATION TYPE: XR hand complete 3 views RT, XR wrist complete 4 views RT DATE OF EXAM: 01/09/2021 COMPARISON: NONE HISTORY: 89-year-old female cat bite at the thumb, pain FINDINGS: Wrist: Radiocarpal and distal radioulnar joint as well as the mid carpal compartment appear intact. No retai eugene radiopaque foreign body or soft tissue air seen. No acute fracture, subluxation, dislocation. Hand: Osteopenia. Mild degenerative change first CMC joint. This seems to be some soft tissue swelling kanwal g the proximal aspect of the index finger. No retained radiopaque foreign body or soft tissue air. No acute fracture, subluxation or dislocation. IMPRESSION (wrist and hand): Soft tissue swelling along the proximal aspect of the index finger. No retained radiopaque foreign keara dy. No acute osseous abnormality seen.
[2021-01-09] MEDS ORDERED: NALOXONE 0.4 MG/ML 1 ML VIAL IV PRN (13:03)
[2021-01-09] MEDS ORDERED: HYDROmorphone 0.5 MG/0.5 ML SYRINGE IVP PRN (13:03)
[2021-01-09] MEDS ORDERED: ONDANSETRON 4 MG/2 ML VIAL IVP PRN (13:03)
[2021-01-09] MEDS ORDERED: FUROSEMIDE 40 MG TAB PO PRN (13:52)
[2021-01-09] MEDS ORDERED: ALPRAZolam 0.5 MG TAB PO PRN (13:52)
[2021-01-09] MEDS ORDERED: SODIUM POLYSTYRENE SULFONATE 15 GM/60 ML BOTTLE PO STA (14:22)
[2021-01-09] MEDS ORDERED: lisinopriL 20 MG TAB PO SCH (21:00)
[2021-01-09] MEDS: FERROUS SULFATE 325 MG TAB PO SCH (22:01)
[2021-01-09] MEDS: ATORVASTATIN 80 MG TAB PO SCH (22:01)
[2021-01-09] MEDS: METOPROLOL TARTRATE 50 MG TAB PO SCH (22:01)
[2021-01-09] MEDS: RIVAROXABAN 15 MG TAB PO SCH (22:01)
[2021-01-09] MEDS: DOCUSATE 100 MG CAP PO SCH (22:01)
[2021-01-09] MEDS: INSULIN DETEMIR (LEVEMIR) 100 UNIT/ML SYR SQ SCH (22:06)
[2021-01-09] MEDS: SODIUM CHLORIDE 0.9% 1,000 ML IV SCH (22:47)
[2021-01-10] MEDS: AMPICILLIN-SULBACTAM 3 GM in SODIUM CHLORIDE 0.9% 100 ML IVPB SCH ×2 (00:41→11:55)
[2021-01-10] MEDS: ACETAMINOPHEN TAB 325 MG TAB PO PRN ×2 (00:48→17:22)
[2021-01-10] MEDS: VIT A,C & E-LUTEIN-MINERALS 1 EACH TAB PO SCH ×3 (00:48→21:38)
[2021-01-10] MEDS: SODIUM CHLORIDE 0.9% 1,000 ML IV SCH ×2 (10:20→17:28)
[2021-01-10] MEDS: PANTOPRAZOLE 40 MG TABLET PO SCH (10:22)
[2021-01-10] MEDS: METOPROLOL TARTRATE 50 MG TAB PO SCH ×2 (10:22→21:36)
[2021-01-10] MEDS: FERROUS SULFATE 325 MG TAB PO SCH ×2 (10:23→21:36)
[2021-01-10] MEDS: LINAGLIPTIN 5 MG TABLET PO SCH (10:23)
[2021-01-10 10:25] LABS: C Reactive Protein 4.6 mg/dL (<1.0)
--- NOTE | 2021-01-10 10:54 | XR ---
EXAMINATION TYPE: XR chest 1V portable DATE OF EXAM: 01/10/2021 HISTORY: Shortness of breath. COMPARISON: 06/21/2020 TECHNIQUE: Single view of the chest is submitted. FINDINGS: Demonstrated are scattered senescent parenchymal change. There is no evidence for focal infiltrate. The heart is stable. Hilar and mediastinal structures are within normal limits. Degenerative changes are seen of the dorsal spine. IMPRESSION: 1. Chronic changes without evidence for acute pulmonary disease.
--- NOTE | 2021-01-10 15:14 | P.HPIM ---
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 This was her daughter's cat and is up-to-date on vaccines. Patient has significant redness and swelling to the right hand at the base of the first and second fingers with erythema going up the arm to the elbow. Patient denies having any fever or chills. She denies any change in appetite. No nausea or vomiting. No diarrhea. No chest pain or shortness of breath. Patient had temperature 101.1, heart rate 78, blood pressure 191/71, pulse ox 97% on room air. WBC 9.4, hemoglobin 12.5, platelet count 224. Sodium 135, potassium 4.7, chloride 107, CO2 24, BUN 42 and crea tinine 1.59. Blood sugar 147. No history of diabetes. C-reactive protein 2.6.: 19 positive. Repeat C-reactive protein 4.6. LDH 471. D-dimer 1.32. Patient has received her Covid 19 vaccine. She denies any symptoms related to this. REVIEW OF SYSTEMS Constitutional: No fever, no chills, no night sweats. No weight change. No weakness, fatigue or lethargy. No daytime sleepiness. EENT: No headache. No blurred vision or double vision, no loss of vision. No loss of Hearing, no ringing in the ears, no dizziness. No nasal drainage or congestion. No epistaxis. No sore throat. Lungs: No shortness of breath, cough, no sputum production. No wheezing. Cardiovascular: No chest pain, no lower extremity edema. No palpitations. No paroxysmal nocturnal dyspnea. No orthopnea. No lightheadedness or dizziness. No syncopal episodes. Abdominal: No abdominal pain. No nausea, vomiting. No diarrhea. No constipation. No bloody or tarry stools.. No loss of appetite. Genitourinary: No dysuria, increased frequency, urgency. No urinary retention. Musculoskeletal: No myalgias. No muscle weakness, no gait dysfunction, no frequent falls. No back pain. No neck pain. Integumentary: Reports wounds, no lesions. No rash or pruritus. No unusual bruising. No change in hair or nails. Neurologic: No aphasia. No facial droop. No change in mentation. No head injury. No headache. No paralysis. No paresthesia. Psychiatric: No depression. No anxiety. No mood swings. Endocrine: No abnormal blood sugars. No weight change. No excessive sweating or thirst. No cold intolerance. SOCIAL HISTORY Patient was a smoker from 1956 until 2016. No illicit drug use, no alcohol use.. FAMILY HISTORY Mother at age 82 from old age. Father from old age and she cannot recall his age at that time. Patient has one son with history of throat cancer in remission. Patient has one daughter currently under treatment for cancer. Patient does not have any brothers or sisters. PHYSICAL EXAMINATION Gen: This is an 89-year-old female. Patient is resting on the ER stretcher. She appears to be in no acute distress. HEENT: Head is atraumatic, normocephalic. Pupils equal, round. Sclerae is anicteric. NECK: Supple. No JVD. No lymphadenopathy. No thyromegaly. LUNGS: Clear to auscultation. No wheezes or rhonchi. No intercostal retractions. HEART: First heart sound is depressed, second heart sounds normal, there is systolic murmur 2/6 located at the right second intercostal space related to the base of the neck ABDOMEN: Soft. Bowel sounds are present. No masses. No tenderness. EXTREMITIES: No pedal edema. No calf tenderness. Dorsalis pedis +2 bilaterally. Right hand at the distal metacarpal area of the index finger has significant erythema, edema and 4 puncture sites. No active drainage. Decreased range of motion. Capillary refill immediate NEUROLOGICAL: Patient is awake, alert and oriented x3. Cranial nerves 2 through 12 are grossly intact. ASSESSMENT AND PLAN 1. Cellulitis of the right hand secondary to cat bite. She denies been started on Unasyn, consult with Dr. Huang, keep area clean, dry and elevated. Tetanus status was updated in the emergency center. 2. Acute kidney injury. Hold Lasix and lisinopril. 3. Paroxysmal atrial fibrillation. Continue metoprolol 50 g twice daily, Xarelto 15 mg at bedtime. 4. History of coronary artery disease status post three-vessel CABG in 1995. Continue patient on metoprolol 50 mg orally twice every day as well as Lipitor 80 mg orally once every day, we will hold ASA. 5. Carotid artery disease status post carotid endarterectomy. Stable patient has had a CTA of the carotid arteries in the past. Continue Lipitor 80 mg orally daily for secondary prevention. 6. Diabetes mellitus type 2. Continue Levemir 14 units at bedtime and NovoLog scale before meals and at bedtime, Tradjenta 5 mg daily. Continue Accu-Chek before each meal and at bedtime along with a sliding scale insulin. 7. Hypertension, hypertensive cardiovascular disease. Continue metoprolol 50 mg orally twice every day, lisinopril on hold. 8. Hyperlipidemia. Continue Lipitor 80 mg daily. 9. Chronic vertigo. Stable. 10. Gastroesophageal reflux disease. Continue Protonix 40 mg po daily. 11. Hyperkalemia. Status post Kayexalate 1. 12. DVT prophylaxis. Xarelto 15 mg po at hs. 13. GI prophylaxis. Continue patient on Protonix 40 mg IVP bid. 14. Admitted to inpatient. Estimate a length of stay 2 midnights . Patient will be admitted to the hospital for a minimum of 2 night stay. DISCHARGE PLAN Home. Impression and plan of care have been directed as dictated by the signing physician. Nataliia Alejo nurse practitioner acting as scribe for signing physician. Past Medical History Past Medical History: Atrial Fibrillation, Coronary Artery Disease (CAD), Chest Pain / Angina, Heart Failure, CVA/TIA, Diabetes Mellitus, Eye Disorder, GERD/Reflux, Hyperlipidemia, Hypertension, Myocardial Infarction (OK), Renal Disease, Syncope, Vascular Disorder Additional Past Medical History / Comment(s): L eye pain/optic ischemic neuropathy/TIA, EF 35% with mild aortic stenosis/mild mitral regurg. Other hx: IDDM type II, CKD stage II, TIAs, vertigo, weakness, gait disturbance/falls, bi lateral hip and gluteal pain, paroxysmal A fib, anemia, L caratid disease 70%, hx of AVM of the cecum with cox plasma, anemia, macular degeneration bilaterally, L eye pain/optic ischemia, poor vision Last Myocardial Infarction Date:: 2017 History of Any Multi-Drug Resistant Organisms: None Reported Past Surgical History: Adenoidectomy, Coronary Bypass/CABG, Heart Catheterization, Orthopedic Surgery, Tonsillectomy Additional Past Surgical History / Comment(s): EGD, colonoscopies, 3 vessel CABG 1996 in [place], R carotid endartectomy 2016, ORIF L ankle d/t fracture. Past Anesthesia/Blood Transfusion Reactions: No Reported Reaction Past Psychological History: No Psychological Hx Reported Smoking Status: Former smoker Past Alcohol Use History: None Reported Past Drug Use History: None Reported - Past Family History Mother Family Medical History: No Reported History Additional Family Medical History / Comment(s): Mother at age 82 from old age. Father Family Medical History: No Reported History Additional Family Medical History / Comment(s): Father from old age and patient does not recall his age or any medical problems. Son(s) Family Medical History: Cancer Additional Family Medical History / Comment(s): Patient has one son with history of throat cancer in remission. Patient has one daughter with no major medical problems. Patient does not have any brothers or sisters. Medications and Allergies Home Medications Medication Instructions Recorded Confirmed Type Insulin Detemir [Levemir Flextouch] 14 units SQ HS@2200 03/02/20 01/09/21 History Linagliptin [Tradjenta] 5 mg PO DAILY@1000 04/08/20 01/09/21 History Metoprolol Tartrate [Lopressor] 50 mg PO BID 04/08/20 01/09/21 History Ferrous Sulfate [Iron (65 MG 325 mg PO BID 05/23/20 01/09/21 History Elemental)] Vit C/E/Zn/Coppr/Lutein/Zeaxan 1 cap PO BID 05/23/20 01/09/21 History [Preservision Areds 2 Softgel] ALPRAZolam [Xanax] 0.5 mg PO BID PRN 06/21/20 01/09/21 History Atorvastatin [Lipitor] 80 mg PO HS@2200 08/26/20 01/09/21 History Cranberry Fruit Extract [Cranberry] 1,000 mg PO DAILY 08/26/20 01/09/21 History lisinopriL 20 mg PO BID 08/26/20 01/09/21 History Docusate [Colace] 100 mg PO HS 01/09/21 01/09/21 History Furosemide [Lasix] 40 mg PO DAILY PRN 01/09/21 01/09/21 History Pantoprazole [Protonix] 40 mg PO DAILY 01/09/21 01/09/21 History Rivaroxaban [Xarelto] 15 mg PO HS 01/09/21 01/09/21 History Allergies Allergy/AdvReac Type Severity Reaction Status Date / Time zolpidem [From Ambien] AdvReac Hallucinati Verified 01/09/21 13:09 ons Physical Exam Vitals: Vital Signs Temp Pulse Resp BP Pulse Ox 01/10/21 01:40 98.7 F 01/10/21 00:25 101.1 F H 78 18 191/71 97 01/09/21 17:17 97.5 F L 67 16 198/64 97 01/09/21 11:21 97.9 F 67 18 146/49 99 Results CBC & Chem 7: 01/09/21 11:53 01/09/21 12:52 Labs: Abnormal Lab Results - Last 24 Hours (Table) 01/09/21 01/09/21 01/09/21 Range/Units 11:53 11:53 12:52 MCHC 30.8 L (31.0-37.0) g/dL Lymphocytes # 0.9 L (1.0-4.8) k/uL Sodium 135 L (137-145) mmol/L Potassium 5.7 H 5.8 H (3.5-5.1) mmol/L BUN 42 H (7-17) mg/dL Creatinine 1.59 H (0.52-1.04) mg/dL Glucose 147 H (74-99) mg/dL C-Reactive Protein 2.6 H (<1.0) mg/dL Coronavirus (PCR) (Not Detectd) 01/09/21 Range/Units 13:55 MCHC (31.0-37.0) g/dL Lymphocytes # (1.0-4.8) k/uL Sodium (137-145) mmol/L Potassium (3.5-5.1) mmol/L BUN (7-17) mg/dL Creatinine (0.52-1.04) mg/dL Glucose (74-99) mg/dL C-Reactive Protein (<1.0) mg/dL Coronavirus (PCR) Detected A (Not Detectd)
--- NOTE | 2021-01-10 15:19 | P.PN ---
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 This was her daughter's cat and is up-to-date on vaccines. Patient has significant redness and swelling to the right hand at the base of the first and second fingers with erythema going up the arm to the elbow. Patient denies having any fever or chills. She denies any change in appetite. No nausea or vomiting. No diarrhea. No chest pain or shortness of breath. Patient had temperature 101.1, heart rate 78, blood pressure 191/71, pulse ox 97% on room air. WBC 9.4, hemoglobin 12.5, platelet count 224. Sodium 135, potassium 4.7, chloride 107, CO2 24, BUN 42 and creatinine 1.59. Blood sugar 147. No history of diabetes. C-reactive protein 2.6.: 19 positive. Repeat C-reactive protein 4.6. LDH 471. D-dimer 1.32. Patient has received her Covid 19 vaccine. She denies any symptoms related to this. 01/10: Temperature max 101.1, blood pressure 191/71, heart rate 78 ,Pulse ox 97% on room air. Repeat blood work will be ordered. Patient denies having any shortness of breath. She states she has a little diarrhea. She states she has chronic lack of taste. Erythema and edema to the right hand significantly improved. Chest x-ray reveals chronic changes without evidence of acute pulmonary disease. Consult in place with Dr. Wheeler. Anticipate possible discharge by tomorrow. REVIEW OF SYSTEMS Constitutional: No fever, no chills, no night sweats. No weight change. No weakness, fatigue or lethargy. No daytime sleepiness. EENT: No headache. No blurred vision or double vision, no loss of vision. No loss of Hearing, no ringing in the ears, no dizziness. No nasal drainage or congestion. No epistaxis. No sore throat. Lungs: No shortness of breath, cough, no sputum production. No wheezing. Cardiovascular: No chest pain, no lower extremity edema. No palpitations. No paroxysmal nocturnal dyspnea. No orthopnea. No lightheadedness or dizziness. No syncopal episodes. Abdominal: No abdominal pain. No nausea, vomiting. No diarrhea. No constipation. No bloody or tarry stools.. No loss of appetite. Genitourinary: No dysuria, increased frequency, urgency. No urinary retention. Musculoskeletal: No myalgias. No muscle weakness, no gait dysfunction, no frequent falls. No back pain. No neck pain. Integumentary: Reports wounds, no lesions. No rash or pruritus. No unusual bruising. No change in hair or nails. Neurologic: No aphasia. No facial droop. No change in mentation. No head injury. No headache. No paralysis. No paresthesia. Psychiatric: No depression. No anxiety. No mood swings. Endocrine: No abnormal blood sugars. No weight change. No excessive sweating or thirst. No cold intolerance. PHYSICAL EXAMINATION Gen: This is an 89-year-old female. Patient is resting in bed in the emergency center. She appears to be in no acute distress. HEENT: Head is atraumatic, normocephalic. Pupils equal, round. Sclerae is anicteric. NECK: Supple. No JVD. No lymphadenopathy. No thyromegaly. LUNGS: Clear to auscultation. No wheezes or rhonchi. No intercostal retractions. HEART: First heart sound is depressed, second heart sounds normal, there is systolic murmur 2/6 located at the right second intercostal space related to the base of the neck ABDOMEN: Soft. Bowel sounds are present. No masses. No tenderness. EXTREMITIES: No pedal edema. No calf tenderness. Dorsalis pedis +2 bilaterally. Right hand at the distal metacarpal area of the index finger has decreased erythema, edema and 4 puncture sites. No active drainage. Improved range of motion from yesterday. Capillary refill immediate NEUROLOGICAL: Patient is awake, alert and oriented x3. Cranial nerves 2 through 12 are grossly intact. ASSESSMENT AND PLAN 1. Cellulitis of the right hand secondary to cat bite. Continue on Unasyn, consult with Dr. Huang, keep area clean, dry and elevated. Tetanus status was updated in the emergency center. 2. Acute kidney injury. Hold Lasix and lisinopril. Repeat blood work today. 3. Paroxysmal atrial fibrillation. Continue metoprolol 50 mg twice daily, Xarelto 15 mg at bedtime. 4. History of coronary artery disease status post three-vessel CABG in 1995. Continue patient on metoprolol 50 mg orally twice every day as well as Lipitor 80 mg orally once every day, we will hold ASA. 5. Carotid artery disease status post carotid endarterectomy. Stable patient has had a CTA of the carotid arteries in the past. Continue Lipitor 80 mg orally daily for secondary prevention. 6. Diabetes mellitus type 2. Continue Levemir 14 units at bedtime and NovoLog scale before meals and at bedtime, Tradjenta 5 mg daily. Continue Accu-Chek before each meal and at bedtime along with a sliding scale insulin. 7. Hypertension, hypertensive cardiovascular disease. Continue metoprolol 50 mg orally twice every day, lisinopril on hold. 8. Hyperlipidemia. Continue Lipitor 80 mg daily. 9. Chronic vertigo. Stable. 10. Gastroesophageal reflux disease. Continue Protonix 40 mg po daily. 11. Hyperkalemia. Status post Kayexalate 1. Repeat basic metabolic panel. 12. DVT prophylaxis. Xarelto 15 mg po at hs. 13. GI prophylaxis. Continue patient on Protonix 40 mg IVP bid. DISCHARGE PLAN Home at [facility]. Impression and plan of care have been directed as dictated by the signing physician. Nataliia Alejo nurse practitioner acting as scribe for signing physician. Objective - Vital Signs Vital signs: Vital Signs Temp 98.7 F 01/10/21 01:40 Pulse 78 01/10/21 00:25 Resp 18 01/10/21 00:25 BP 191/71 01/10/21 00:25 Pulse Ox 97 01/10/21 00:25 Intake & Output 01/09/21 01/10/21 01/10/21 18:59 06:59 18:59 Weight 58.967 kg - Labs CBC & Chem 7: 01/09/21 11:53 01/09/21 12:52 Labs: Abnormal Lab Results - Last 24 Hours (Table) 01/09/21 01/09/21 01/09/21 Range/Units 11:53 11:53 12:52 MCHC 30.8 L (31.0-37.0) g/dL Lymphocytes # 0.9 L (1.0-4.8) k/uL Sodium 135 L (137-145) mmol/L Potassium 5.7 H 5.8 H (3.5-5.1) mmol/L BUN 42 H (7-17) mg/dL Creatinine 1.59 H (0.52-1.04) mg/dL Glucose 147 H (74-99) mg/dL C-Reactive Protein 2.6 H (<1.0) mg/dL Coronavirus (PCR) (Not Detectd) 01/09/21 Range/Units 13:55 MCHC (31.0-37.0) g/dL Lymphocytes # (1.0-4.8) k/uL Sodium (137-145) mmol/L Potassium (3.5-5.1) mmol/L BUN (7-17) mg/dL Creatinine (0.52-1.04) mg/dL Glucose (74-99) mg/dL C-Reactive Protein (<1.0) mg/dL Coronavirus (PCR) Detected A (Not Detectd)
[2021-01-10 17:59] LABS: Glucose,Whole Blood 81 mg/dL (75-99)
[2021-01-10] MEDS: INSULIN ASPART (NovoLOG) 100 UNIT/ML VIAL SQ SCH ×2 (18:13→21:26)
[2021-01-10 19:47] LABS: African American GFR (CKD) 48 (>60 ml/min/1.73 sqM); Anion Gap 9 mmol/L; Blood Urea Nitrogen 27 mg/dL (7-17); Calcium 8.7 mg/dL (8.4-10.2); Carbon Dioxide 20 mmol/L (22-30); Chloride 111 mmol/L (98-107); Glucose 81 mg/dL (74-99); Non-African American GFR(CKD) 42 (>60 ml/min/1.73 sqM); Potassium 4.7 mmol/L (3.5-5.1); Sodium 140 mmol/L (137-145)
[2021-01-10] MEDS: hydrALAZINE HCL 20 MG/ML 1 ML VIAL IVP PRN (20:04)
[2021-01-10 21:22] LABS: Glucose,Whole Blood 80 mg/dL (75-99)
[2021-01-10 21:35] LABS: Ferritin 129.7 ng/mL (10.0-291.0)
[2021-01-10] MEDS: lisinopriL 20 MG TAB PO SCH (21:36)
[2021-01-10] MEDS: ATORVASTATIN 80 MG TAB PO SCH (21:36)
[2021-01-10] MEDS: DOCUSATE 100 MG CAP PO SCH (21:36)
[2021-01-10] MEDS: INSULIN DETEMIR (LEVEMIR) 100 UNIT/ML SYR SQ SCH (21:37)
[2021-01-10] MEDS: RIVAROXABAN 15 MG TAB PO SCH (22:14)
[2021-01-11] MEDS: AMPICILLIN-SULBACTAM 3 GM in SODIUM CHLORIDE 0.9% 100 ML IVPB SCH ×2 (00:49→12:03)
[2021-01-11] MEDS: SODIUM CHLORIDE 0.9% 1,000 ML IV SCH ×2 (05:39→21:48)
[2021-01-11] MEDS: hydrALAZINE HCL 20 MG/ML 1 ML VIAL IVP PRN ×2 (05:48→16:20)
[2021-01-11 07:05] LABS: Glucose,Whole Blood 74 mg/dL (75-99)
--- NOTE | 2021-01-11 07:33 | CONS ---
CONSULTATION DATE OF SERVICE: 01/10/2021 REASON FOR CONSULTATION: 1. Right hand cat bite cellulitis. 2. Positive COVID test. HISTORY OF PRESENT ILLNESS: The patient is an 89-year-old female with multiple comorbidities, including coronary artery disease, diabetes and atrial fibrillation. The patient presented to [facility] ER yesterday morning after the patient was bitten by her daughter's cat on the right hand at the base of the index finger. The patient states she was trying to get the cat out, she turned around and bit her on the hand. The patient did have mild bleeding initially and then over the next 24 hours she noticed her right hand started getting swollen, red and painful. The patient describes the pain to be throbbing with intensity almost 7 to 8/10 and no radiation with associated swelling, redness, but no further drainage. Denies having any fever or chills. With these symptoms, the patient presented to [facility] ER. On arrival to the ER, the patient was afebrile initially and subsequently spiked a fever of 101 degrees Fahrenheit. The patient did have a normal white count with mild lymphopenia. D-dimer was mildly elevated. Creatinine was 1.16. The patient did have a brandt PCR which came back positive, however, the patient denies having any URI symptoms. Denies having any chest pain, shortness of breath or cough. Currently on room air. The patient's chest x-ray did not show any acute findings. X-rays of the hand and wrist area did show some soft tissue swelling but no radiopaque foreign body. The patient has been started on Unasyn. Infectious Disease was consulted for further management of right hand cat bite cellulitis as well as positive COVID test. REVIEW OF SYSTEMS: Positive points have been mentioned in HPI. Rest of the systems are negative. PAST MEDICAL HISTORY: Atrial fibrillation, coronary artery disease, heart failure with CVA, TIA, diabetes mellitus, gastroesophageal reflux disease, hypertension, hyperlipidemia, DE. PAST SURGICAL HISTORY: Adenoidectomy, coronary artery bypass grafting, heart catheterization, tonsillectomy, left ankle fracture repair. SOCIAL HISTORY: Remote history of smoking. No drinking or drug use. FAMILY HISTORY: Both parents of old age. ALLERGIES: AMBIEN. MEDICATIONS: The patient is currently on Unasyn 3 g q.12h, dose has been adjusted to the kidney function. The patient is on Tylenol, Xanax, Lipitor, Colace, iron sulfate, hydralazine, Dilaudid, NovoLog, Levemir, Tradjenta, Zestril, Lopressor, Narcan, Zofran, Protonix. PHYSICAL EXAMINATION: VITAL SIGNS: Blood pressure 170/60 with a pulse of 71, temperature 98.7, she is 97% on room air. GENERAL DESCRIPTION: Patient is an elderly female lying in bed in no distress. HEENT: Examination shows no pallor or scleral icterus. Oral mucous membrane is dry. NECK: Trachea central, no thyromegaly. LUNGS: Unlabored breathing, clear to auscultation anteriorly. No wheeze or crackle. HEART: S1-S2, regular rate and rhythm. ABDOMEN: Soft, no tenderness. No guarding or rigidity. EXTREMITIES: No edema of the feet. Examination of the right hand at the base of the index finger, the patient did have swelling and redness, slightly warm to touch and tender. No drainage. NEUROLOGICAL: Patient is awake, alert, oriented times three. Mood and affect normal. LABS: Hemoglobin is 12.5, white count 9.4, BUN of 27, creatinine 1.16. CRP is 4.6. Liver enzymes are normal. Blood culture negative. DIAGNOSTIC IMPRESSION AND PLAN: 1. Patient with right hand cat bite cellulitis. We will need to cover for the oral phillip. However, cats are mostly gram-negative anaerobes. 2. Patient who does have positive COVID test but no respiratory symptoms. Chest x-ray with no active acute findings and the patient is on room air. Treatment will be mostly supportive. PLAN: 1. Unasyn 3 grams q.12 hours with dose adjusted to kidney function, to continue. 2. Natalio the area of the redness. 3. For underlying COVID-19 infection patient is already on anticoagulation in the form of Xarelto. Will add ascorbic acid and zinc. No need for steroids or remdesivir. 4. Droplet isolation and respiratory support. 5. We will follow on clinical condition and further adjust medication if needed. Thank you for this consultation. Will follow this patient along with you. MMODL / IJN: [id number] /
[2021-01-11] MEDS: ACETAMINOPHEN TAB 325 MG TAB PO PRN (08:47)
[2021-01-11] MEDS: ASCORBIC ACID 500 MG TAB PO SCH (08:47)
[2021-01-11] MEDS: VIT A,C & E-LUTEIN-MINERALS 1 EACH TAB PO SCH ×2 (08:48→21:49)
[2021-01-11] MEDS: FERROUS SULFATE 325 MG TAB PO SCH ×2 (08:48→21:48)
[2021-01-11] MEDS: INSULIN ASPART (NovoLOG) 100 UNIT/ML VIAL SQ SCH ×4 (08:48→21:54)
[2021-01-11] MEDS: ZINC SULFATE 220 MG CAP PO SCH (08:48)
[2021-01-11] MEDS: LINAGLIPTIN 5 MG TABLET PO SCH (08:48)
[2021-01-11] MEDS: lisinopriL 20 MG TAB PO SCH ×2 (08:48→21:48)
[2021-01-11] MEDS: PANTOPRAZOLE 40 MG TABLET PO SCH (08:48)
[2021-01-11] MEDS: METOPROLOL TARTRATE 50 MG TAB PO SCH ×2 (08:48→21:49)
[2021-01-11 09:15] LABS: ALT 21 U/L (4-34); AST 29 U/L (14-36); African American GFR (CKD) 49 (>60 ml/min/1.73 sqM); Albumin 2.9 g/dL (3.5-5.0); Albumin/Globulin Ratio 1.2; Alkaline Phosphatase 39 U/L (38-126); Anion Gap 6 mmol/L; Blood Urea Nitrogen 26 mg/dL (7-17); C Reactive Protein 3.7 mg/dL (<1.0); Calcium 8.5 mg/dL (8.4-10.2); Carbon Dioxide 24 mmol/L (22-30); Chloride 112 mmol/L (98-107); Globulin 2.5 g/dL; Glucose 56 mg/dL (74-99); Non-African American GFR(CKD) 42 (>60 ml/min/1.73 sqM); Potassium 4.6 mmol/L (3.5-5.1); Sodium 142 mmol/L (137-145); Total Bilirubin 0.7 mg/dL (0.2-1.3); Total Protein 5.4 g/dL (6.3-8.2)
[2021-01-11 09:21] LABS: HCT 37.5 % (37.2-46.3); HGB 11.2 g/dL (12.0-15.0); MCH 29.7 pg (27.0-32.0); MCHC 29.9 g/dL (32.0-37.0); MCV 99.5 fL (80.0-97.0); Mean Platelet Volume 11.2 fL (9.5-12.2); Platelet Count 209 X 10*3/uL (140-440); RBC 3.77 X 10*6/uL (4.10-5.20); RDW 14.2 % (11.5-14.5)
[2021-01-11 10:18] LABS: African American GFR (CKD) 51.5 (60.0-200.0); Anion Gap 8.7 mmol/L (4.00-12.00); BUN/Creat Ratio 24.55 Ratio (12.00-20.00); Calcium 8.1 mg/dL (8.7-10.3); Carbon Dioxide 22.3 mmol/L (21.6-31.8); Non-African American GFR(CKD) 44.5 (60.0-200.0); Potassium 4.6 mmol/L (3.5-5.5)
[2021-01-11 11:33] LABS: Glucose,Whole Blood 180 mg/dL (75-99)
--- NOTE | 2021-01-11 13:32 | CDI ---
Documentation Clarification Form Date: 01/11/2021 01:20:50 PM From: Dottie Bobby CCS, CCDS Admit Date: 01/09/2021 01:11:00 PM Patient Name: Johanne Potter Visit Number: [id number] Discharge Date: ATTENTION: The Clinical Documentation Specialists (CDI) and [facility] Coding Staff appreciate your assistance in clarifying documentation. Please respond to the clarification below the line at the bottom and electronically sign. The CDI & [facility] Coding staff will review the response and follow-up if needed. Please note: Queries are made part of the Legal Health Record. If you have any questions, please contact the author of this message via ITS. Dr. Marilyn Nash: Your patient has the documented diagnosis of unspecified CHF per the patient's Past Medical History in the 01/09 H/P. Additional information regarding the type and acuity of CHF is requested. 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 Former smoker. Clinical Indicators: Presented to the ED from home on 01/09 with a cat bite to the right hand. Patient also tested positive for COVID 19, asymptomatic. Patient was vaccinated, unknown date. 01/09 VS: T 97.9 - 97.5 - 101.1 (01/10); P 67 - 78, R 18, BP 146/49 - 198/64; PO 99 - 97 RA, BMI 23.0 LAB 01/09: Lymph 0.9, D Dimer 1.32 (01/10), Na 135, K 5.7, BUN 42, Cr 1.59, Glucose 147, CRP 2.6. BNP not done. 01/09 COVID POSITIVE RAD 01/09 CXR: Chronic changes without evidence for acute pulmonary disease. Echocardiogram Results (Most recent 09/11/2020): Systolic function low normal w/EF 50-55%, Lt atrium moderately dilated, Mild aortic valve sclerosis, Mild MR, Mild TR Treatment 01/09: Home dose po Lasix 40 mg daily. In your professional opinion, can you please clarify the type of CHF if known? [ ] Heart Failure ruled out [ ] Chronic Systolic Heart Failure (reduced EF) [ ] Other Heart Failure [ ] Other, please specify [ ] Unable to determine (Template Last Revised: October 2020) ____Chronic diastolic heart failure MTDD
--- NOTE | 2021-01-11 16:27 | PN ---
PROGRESS NOTE DATE OF SERVICE: 01/11/2021 REASON FOR FOLLOWUP: 1. Right hand cat bite cellulitis. 2. Positive COVID test. INTERVAL HISTORY: The patient is currently afebrile. The patient is breathing comfortably on room air. The patient denies having any chest pain or shortness of breath. Occasional cough. No abdominal pain or diarrhea. Overall pain and swelling to the right hand cat bite site have decreased in intensity. PHYSICAL EXAMINATION: Blood pressure 187/63, pulse of 63, temperature 98.4. She is 97% on room air. General description is an elderly female lying in bed in no distress. RESPIRATORY SYSTEM: Unlabored breathing. Clear to auscultation anteriorly. HEART: S1, S2. Regular rate and rhythm. ABDOMEN: Soft. No tenderness. Right hand swelling and redness have decreased. LABS: Hemoglobin 11.2, white count 6.90. BUN of 26, creatinine is 1.15. DIAGNOSTIC IMPRESSION AND PLAN: 1. Patient with right hand cat bite and cellulitis in this patient with overall clinical improvement on Unasyn; to continue with a plan to finish therapy with oral Augmentin. 2. Patient with a positive COVID test without significant respiratory symptoms. Chest x-ray was clear. Patient is not hypoxic. Treatment is mostly supportive. Continue supportive care. MMODL / IJN: [id number] /
[2021-01-11 16:40] LABS: Glucose,Whole Blood 84 mg/dL (75-99)
[2021-01-11 21:33] LABS: Glucose,Whole Blood 104 mg/dL (75-99)
[2021-01-11] MEDS: INSULIN DETEMIR (LEVEMIR) 100 UNIT/ML SYR SQ SCH (21:49)
[2021-01-11] MEDS: ATORVASTATIN 80 MG TAB PO SCH (21:49)
[2021-01-11] MEDS: DOCUSATE 100 MG CAP PO SCH (21:49)
[2021-01-11] MEDS: RIVAROXABAN 15 MG TAB PO SCH (22:11)
[2021-01-11 22:38] VITALS: RESP 16
[2021-01-12] MEDS: AMPICILLIN-SULBACTAM 3 GM in SODIUM CHLORIDE 0.9% 100 ML IVPB SCH (00:20)
[2021-01-12] MEDS: hydrALAZINE HCL 20 MG/ML 1 ML VIAL IVP PRN (02:48)
[2021-01-12 07:13] LABS: Glucose,Whole Blood 95 mg/dL (75-99)
--- NOTE | 2021-01-12 08:28 | P.PN ---
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 This was her daughter's cat and is up-to-date on vaccines. Patient has significant redness and swelling to the right hand at the base of the first and second fingers with erythema going up the arm to the elbow. Patient denies having any fever or chills. She denies any change in appetite. No nausea or vomiting. No diarrhea. No chest pain or shortness of breath. Patient had temperature 101.1, heart rate 78, blood pressure 191/71, pulse ox 97% on room air. WBC 9.4, hemoglobin 12.5, platelet count 224. Sodium 135, potassium 4.7, chloride 107, CO2 24, BUN 42 and creatinine 1.59. Blood sugar 147. No history of diabetes. C-reactive protein 2.6.: 19 positive. Repeat C-reactive protein 4.6. LDH 471. D-dimer 1.32. Patient has received her Covid 19 vaccine. She denies any symptoms related to this. 01/10: Temperature max 101.1, blood pressure 191/71, heart rate 78 ,Pulse ox 97% on room air. Repeat blood work will be ordered. Patient denies having any shortness of breath. She states she has a little diarrhea. She states she has chronic lack of taste. Erythema and edema to the right hand significantly improved. Chest x-ray reveals chronic changes without evidence of acute pulmonary disease. Consult in place with Dr. Wheeler. Anticipate possible discharge by tomorrow. 01/11: Patient is feeling a bit better today she continues to have some increased redness of the right index finger, minimal swelling, no evidence of tenosynovitis at this point in time continue IV antibiotic for another day that she can be switched to oral antibiotic and can be discharged home in the next 24 hours. REVIEW OF SYSTEMS Constitutional: No fever, no chills, no night sweats. No weight change. No weakness, fatigue or lethargy. No daytime sleepiness. EENT: No headache. No blurred vision or double vision, no loss of vision. No loss of Hearing, no ringing in the ears, no dizziness. No nasal drainage or congestion. No epistaxis. No sore throat. Lungs: No shortness of breath, cough, no sputum production. No wheezing. Cardiovascular: No chest pain, no lower extremity edema. No palpitations. No paroxysmal nocturnal dyspnea. No orthopnea. No lightheadedness or dizziness. No syncopal episodes. Abdominal: No abdominal pain. No nausea, vomiting. No diarrhea. No constipation. No bloody or tarry stools.. No loss of appetite. Genitourinary: No dysuria, increased frequency, urgency. No urinary retention. Musculoskeletal: No myalgias. No muscle weakness, no gait dysfunction, no frequent falls. No back pain. No neck pain. Integumentary: Reports wounds, no lesions. No rash or pruritus. No unusual bruising. No change in hair or nails. Neurologic: No aphasia. No facial droop. No change in mentation. No head injury. No headache. No paralysis. No paresthesia. Psychiatric: No depression. No anxiety. No mood swings. Endocrine: No abnormal blood sugars. No weight change. No excessive sweating or thirst. No cold intolerance. PHYSICAL EXAMINATION Gen: This is an 89-year-old female. Patient is resting in bed in the emergency center. She appears to be in no acute distress. HEENT: Head is atraumatic, normocephalic. Pupils equal, round. Sclerae is anicteric. NECK: Supple. No JVD. No lymphadenopathy. No thyromegaly. LUNGS: Clear to auscultation. No wheezes or rhonchi. No intercostal retractions. HEART: First heart sound is depressed, second heart sounds normal, there is systolic murmur 2/6 located at the right second intercostal space related to the base of the neck ABDOMEN: Soft. Bowel sounds are present. No masses. No tenderness. EXTREMITIES: No pedal edema. No calf tenderness. Dorsalis pedis +2 bilaterally. Right hand at the distal metacarpal area of the index finger has decreased erythema, edema and 4 puncture sites. No active drainage. Improved range of motion from yesterday. Capillary refill immediate NEUROLOGICAL: Patient is awake, alert and oriented x3. Cranial nerves 2 through 12 are grossly intact. ASSESSMENT AND PLAN 1. Cellulitis of the right hand secondary to cat bite. Continue on Unasyn, consult with Dr. Huang, keep area clean, dry and elevated. Tetanus status was updated in the emergency center. 2. Acute kidney injury. Hold Lasix and lisinopril. Repeat blood work today. 3. Paroxysmal atrial fibrillation. Continue metoprolol 50 mg twice daily, Xarelto 15 mg at bedtime. 4. History of coronary artery disease status post three-vessel CABG in 1995. Continue patient on metoprolol 50 mg orally twice every day as well as Lipitor 80 mg orally once every day, we will hold ASA. 5. Carotid artery disease status post carotid endarterectomy. Stable patient has had a CTA of the carotid arteries in the past. Continue Lipitor 80 mg orally daily for secondary prevention. 6. Diabetes mellitus type 2. Continue Levemir 14 units at bedtime and NovoLog scale before meals and at bedtime, Tradjenta 5 mg daily. Continue Accu-Chek before each meal and at bedtime along with a sliding scale insulin. 7. Hypertension, hypertensive cardiovascular disease. Continue metoprolol 50 mg orally twice every day, lisinopril on hold. 8. Hyperlipidemia. Continue Lipitor 80 mg daily. 9. Chronic vertigo. Stable. 10. Gastroesophageal reflux disease. Continue Protonix 40 mg po daily. 11. Hyperkalemia. Status post Kayexalate 1. Repeat basic metabolic panel. 12. DVT prophylaxis. Xarelto 15 mg po at hs. 13. GI prophylaxis. Continue patient on Protonix 40 mg IVP bid. 14. Home tomorrow morning. DISCHARGE PLAN Home at [facility]. Objective - Vital Signs Vital signs: Vital Signs Temp 98.6 F 01/11/21 05:33 Pulse 71 01/11/21 05:33 Resp 18 01/11/21 05:33 BP 186/67 01/11/21 05:33 Pulse Ox 98 01/11/21 05:33 Intake & Output 01/10/21 01/11/21 01/11/21 18:59 06:59 18:59 Weight 58.967 kg Other: Voiding Method Bedside Commode # Voids 2 - Labs CBC & Chem 7: 01/11/21 06:05 01/11/21 06:05 Labs: Abnormal Lab Results - Last 24 Hours (Table) 01/10/21 01/10/21 01/10/21 Range/Units 09:06 09:06 18:37 D-Dimer 1.32 H (<0.60) mg/L FEU Chloride 111 H (98-107) mmol/L Carbon Dioxide 20 L (22-30) mmol/L BUN 27 H (7-17) mg/dL Creatinine 1.16 H (0.52-1.04) mg/dL POC Glucose (mg/dL) (75-99) mg/dL C-Reactive Protein 4.6 H (<1.0) mg/dL 01/11/21 Range/Units 06:58 D-Dimer (<0.60) mg/L FEU Chloride (98-107) mmol/L Carbon Dioxide (22-30) mmol/L BUN (7-17) mg/dL Creatinine (0.52-1.04) mg/dL POC Glucose (mg/dL) 74 L (75-99) mg/dL C-Reactive Protein (<1.0) mg/dL Microbiology - Last 24 Hours (Table) 01/09/21 11:45 Blood Culture - Preliminary Blood No Growth after 24 hours 01/09/21 11:53 Blood Culture - Preliminary Blood No Growth after 24 hours
--- NOTE | 2021-01-12 08:30 | P.DS ---
Providers Date of admission: 01/09/21 13:11 Expected date of discharge: 01/12/21 Attending physician: Marilyn Nash Consults: 01/09/21 13:10 Consult Physician Routine Consulting Provider: Julia Huang Consult Reason/Comments: cat bite Do you want consulting provider notified?: Yes Primary care physician: Marilyn Nash Hospital Course: HISTORY OF PRESENT ILLNESS This is an 89-year-old female patient with past medical history of coronary artery disease status post three-vessel CABG with FRIEDMAN to LAD and SVG to RCA back in 1995, carotid artery disease status post carotid endarterectomy in 2015, diabetes mellitus type 2, paroxysmal atrial fibrillation chronically on Xarelto, hypertension, hyperlipidemia, chronic vertigo history of AVM of the c ecum status post argon plasma in 2017 the patient presented to the emergency center due to cat bite that occurred yesterday. This was her daughter's cat and is up-to-date on vaccines. Patient has significant redness and swelling to the right hand at the base of the first and second fingers with erythema going up the arm to the elbow. Patient denies having any fever or chills. She denies any change in appetite. No nausea or vomiting. No diarrhea. No chest pain or shortness of breath. Patient had temperature 101.1, heart rate 78, blood pressure 191/71, pulse ox 97% on room air. WBC 9.4, hemoglobin 12.5, platelet count 224. Sodium 135, potassium 4.7, chloride 107, CO2 24, BUN 42 and creatinine 1.59. Blood sugar 147. No history of diabetes. C-reactive protein 2.6.: 19 positive. Repeat C-reactive protein 4.6. LDH 471. D-dimer 1.32. Patient has received her Covid 19 vaccine. She denies any symptoms related to this. 01/10: Temperature max 101.1, blood pressure 191/71, heart rate 78 ,Pulse ox 97% on room air. Repeat blood work will be ordered. Patient denies having any shortness of breath. She states she has a little diarrhea. She states she has chronic lack of taste. Erythema and edema to the right hand significantly improved. Chest x-ray reveals chronic changes without evidence of acute pulmonary disease. Consult in place with Dr. Wheeler. Anticipate possible discharge by tomorrow. 01/11: Patient is feeling a bit better today she continues to have some increased redness of the right index finger, minimal swelling, no evidence of tenosynovitis at this point in time continue IV antibiotic for another day that she can be switched to oral antibiotic and can be discharged home in the next 24 hours. REVIEW OF SYSTEMS Constitutional: No fever, no chills, no night sweats. No weight change. No weakness, fatigue or lethargy. No daytime sleepiness. EENT: No headache. No blurred vision or double vision, no loss of vision. No loss of Hearing, no ringing in the ears, no dizziness. No nasal drainage or congestion. No epistaxis. No sore throat. Lungs: No shortness of breath, cough, no sputum production. No wheezing. Cardiovascular: No chest pain, no lower extremity edema. No palpitations. No paroxysmal nocturnal dyspnea. No orthopnea. No lightheadedness or dizziness. No syncopal episodes. Abdominal: No abdominal pain. No nausea, vomiting. No diarrhea. No constipation. No bloody or tarry stools.. No loss of appetite. Genitourinary: No dysuria, increased frequency, urgency. No urinary retention. Musculoskeletal: No myalgias. No muscle weakness, no gait dysfunction, no frequent falls. No back pain. No neck pain. Integumentary: Reports wounds, no lesions. No rash or pruritus. No unusual bruising. No change in hair or nails. Neurologic: No aphasia. No facial droop. No change in mentation. No head injury. No headache. No paralysis. No paresthesia. Psychiatric: No depression. No anxiety. No mood swings. Endocrine: No abnormal blood sugars. No weight change. No excessive sweating or thirst. No cold intolerance. ASSESSMENT AND PLAN 1. Cellulitis of the right hand secondary to cat bite. 2. Acute kidney injury. 3. Paroxysmal atrial fibrillation. 4. History of coronary artery disease status post three-vessel CABG in 1995. 5. Carotid artery disease status post carotid endarterectomy. 6. Diabetes mellitus type 2. 7. Hypertension, hypertensive cardiovascular disease. 8. Hyperlipidemia. 9. Chronic vertigo. 10. Gastroesophageal reflux disease. 11. Hyperkalemia. Patient Condition at Discharge: Stable Plan - Discharge Summary Discharge Rx Participant: Yes New Discharge Prescriptions: No Action Insulin Detemir [Levemir Flextouch] 14 units SQ HS@2200 Metoprolol Tartrate [Lopressor] 50 mg PO BID Linagliptin [Tradjenta] 5 mg PO DAILY@1000 Ferrous Sulfate [Iron (65 MG Elemental)] 325 mg PO BID Vit C/E/Zn/Coppr/Lutein/Zeaxan [Preservision Areds 2 Softgel] 1 cap PO BID ALPRAZolam [Xanax] 0.5 mg PO BID PRN PRN Reason: Anxiety lisinopriL 20 mg PO BID Cranberry Fruit Extract [Cranberry] 1,000 mg PO DAILY Atorvastatin [Lipitor] 80 mg PO HS@2200 Rivaroxaban [Xarelto] 15 mg PO HS Furosemide [Lasix] 40 mg PO DAILY PRN PRN Reason: Edema Docusate [Colace] 100 mg PO HS Pantoprazole [Protonix] 40 mg PO DAILY Discharge Medication List Insulin Detemir [Levemir Flextouch] 14 units SQ HS@2200 03/02/20 [History] Linagliptin [Tradjenta] 5 mg PO DAILY@1000 04/08/20 [History] Metoprolol Tartrate [Lopressor] 50 mg PO BID 04/08/20 [History] Ferrous Sulfate [Iron (65 MG Elemental)] 325 mg PO BID 05/23/20 [History] Vit C/E/Zn/Coppr/Lutein/Zeaxan [Preservision Areds 2 Softgel] 1 cap PO BID 05/23/20 [History] ALPRAZolam [Xanax] 0.5 mg PO BID PRN 06/21/20 [History] Atorvastatin [Lipitor] 80 mg PO HS@2200 08/26/20 [History] Cranberry Fruit Extract [Cranberry] 1,000 mg PO DAILY 08/26/20 [History] lisinopriL 20 mg PO BID 08/26/20 [History] Docusate [Colace] 100 mg PO HS 01/09/21 [History] Furosemide [Lasix] 40 mg PO DAILY PRN 01/09/21 [History] Pantoprazole [Protonix] 40 mg PO DAILY 01/09/21 [History] Rivaroxaban [Xarelto] 15 mg PO HS 01/09/21 [History] Follow up Appointment(s)/Referral(s): Marilyn Nash MD [Primary Care Provider] - 1-2 days Patient Instructions/Handouts: Animal Bite (ED)
[2021-01-12] MEDS: INSULIN ASPART (NovoLOG) 100 UNIT/ML VIAL SQ SCH (08:46)
[2021-01-12] MEDS: lisinopriL 20 MG TAB PO SCH (08:53)
[2021-01-12] MEDS: ZINC SULFATE 220 MG CAP PO SCH (08:53)
[2021-01-12] MEDS: VIT A,C & E-LUTEIN-MINERALS 1 EACH TAB PO SCH (08:53)
[2021-01-12] MEDS: ASCORBIC ACID 500 MG TAB PO SCH (08:53)
[2021-01-12] MEDS: METOPROLOL TARTRATE 50 MG TAB PO SCH (08:53)
[2021-01-12] MEDS: PANTOPRAZOLE 40 MG TABLET PO SCH (08:53)
[2021-01-12] MEDS: FERROUS SULFATE 325 MG TAB PO SCH (08:53)
[2021-01-12] MEDS: LINAGLIPTIN 5 MG TABLET PO SCH (08:54)
[2021-01-12] MEDS ORDERED: AMOXIC-POT CLAV 875-125MG 1 EACH TAB PO SCH (09:00)
[2021-01-12 09:57] VITALS: BP 179/56; PULSE 83; TEMP 98.5
[2021-01-12] MEDS ORDERED: amLODIPine 5 MG TAB PO SCH (10:15)
[2021-01-12] MEDS: SODIUM CHLORIDE 0.9% 1,000 ML IV SCH (10:41)
== END 2021-01-12 11:45 | disposition home health service (06) | DRG 602 ==
LOC: EC 11:17 → 4SSUR 13:11 → OBSVTOIN 13:11 → 4SSUR 20:23
PROVIDERS: ADMIT Internal Medicine; ATTEND Internal Medicine
DX: L03.113 Cellulitis of right upper limb (principal); U07.1 COVID-19; N17.9 Acute kidney failure, unspecified; I13.0 Hypertensive heart and chronic kidney disease with heart failure and stage 1 through stage 4 chronic kidney disease, or unspecified chronic kidney disease; I50.32 Chronic diastolic (congestive) heart failure; S61.451A Open bite of right hand, initial encounter; W55.01XA Bitten by cat, initial encounter; D72.810 Lymphocytopenia; E11.22 Type 2 diabetes mellitus with diabetic chronic kidney disease; E78.5 Hyperlipidemia, unspecified; E87.5 Hyperkalemia; H35.30 Unspecified macular degeneration; H54.7 Unspecified visual loss; I25.10 Atherosclerotic heart disease of native coronary artery without angina pectoris; I25.2 Old myocardial infarction; I08.3 Combined rheumatic disorders of mitral, aortic and tricuspid valves; I48.0 Paroxysmal atrial fibrillation; R42 Dizziness and giddiness; K21.9 Gastro-esophageal reflux disease without esophagitis; N18.2 Chronic kidney disease, stage 2 (mild); Z79.01 Long term (current) use of anticoagulants; Z79.4 Long term (current) use of insulin; Z79.899 Other long term (current) drug therapy; Z80.8 Family history of malignant neoplasm of other organs or systems; Z86.73 Personal history of transient ischemic attack (TIA), and cerebral infarction without residual deficits; Z87.891 Personal history of nicotine dependence; Z95.1 Presence of aortocoronary bypass graft; Z90.89 Acquired absence of other organs; Z98.890 Other specified postprocedural states
CPT/HCPCS: 36415; 71045; 80048; 80053; 82728; 83605; 83615; 84132; 85025; 85027; 85379; 86140; 87040; 87635; 90471; 90715; 93005; 96365; 99284

== ENCOUNTER 2021-01-14 11:30 | Inpatient (IN) | payer MEDICARE, BC ==
[2021-01-14] MEDS ORDERED: PANTOPRAZOLE 40 MG/10 ML VIAL IVP STA (11:50)
--- NOTE | 2021-01-14 12:22 | ED ---
General Adult HPI - General Chief complaint: GI Bleed Stated complaint: Rectal bleeding Time Seen by Provider: 01/14/21 11:50 Source: patient, family, RN notes reviewed Mode of arrival: wheelchair Limitations: no limitations - History of Present Illness Initial comments: Patient is a pleasant 89-year-old female presenting to emergency department with concerns for rectal bleeding. Patient had 2 episodes today. First one was a large amount of stool. Second one was mostly blood and water. No abdominal discomfort. Minimal nausea however that is fairly chronic. Patient does have history of similar symptoms previously with concern for sores near the upper intestinal tract. Patient denies any dyspnea or fatigue. No fever. - Related Data Home Medications Medication Instructions Recorded Confirmed Insulin Detemir [Levemir Flextouch] 14 units SQ HS@2200 03/02/20 01/14/21 Linagliptin [Tradjenta] 5 mg PO DAILY@1000 04/08/20 01/14/21 Metoprolol Tartrate [Lopressor] 50 mg PO BID 04/08/20 01/14/21 Ferrous Sulfate [Iron (65 MG 325 mg PO BID 05/23/20 01/14/21 Elemental)] Vit C/E/Zn/Coppr/Lutein/Zeaxan 1 cap PO BID 05/23/20 01/14/21 [Preservision Areds 2 Softgel] ALPRAZolam [Xanax] 0.5 mg PO BID PRN 06/21/20 01/14/21 Atorvastatin [Lipitor] 80 mg PO HS@2200 08/26/20 01/14/21 Cranberry Fruit Extract [Cranberry] 1,000 mg PO DAILY 08/26/20 01/14/21 lisinopriL 20 mg PO BID 08/26/20 01/14/21 Docusate [Colace] 100 mg PO HS 01/09/21 01/14/21 Furosemide [Lasix] 40 mg PO DAILY PRN 01/09/21 01/14/21 Pantoprazole [Protonix] 40 mg PO DAILY 01/09/21 01/14/21 Rivaroxaban [Xarelto] 15 mg PO HS 01/09/21 01/14/21 Amoxic-Pot Clav 875-125Mg 1 tab PO Q12HR 01/14/21 01/14/21 [Augmentin 875-125] Previous Rx's Medication Instructions Recorded amLODIPine [Norvasc] 5 mg PO DAILY #30 tab 01/12/21 Allergies Allergy/AdvReac Type Severity Reaction Status Date / Time zolpidem [From Ambien] AdvReac Hallucinati Verified 01/14/21 13:41 ons Review of Systems ROS Statement: Those systems with pertinent positive or pertinent negative responses have been documented in the HPI. ROS Other: All systems not noted in ROS Statement are negative. Constitutional: Denies: fever, chills Eyes: Denies: eye pain ENT: Denies: ear pain Respiratory: Denies: cough, dyspnea Cardiovascular: Denies: chest pain Endocrine: Denies: fatigue Gastrointestinal: Reports: as per HPI, nausea, hematochezia. Denies: abdominal pain, vomiting Genitourinary: Denies: dysuria Musculoskeletal: Denies: back pain Skin: Denies: rash Neurological: Denies: weakness Past Medical History Past Medical History: Atrial Fibrillation, Coronary Artery Disease (CAD), Chest Pain / Angina, Heart Failure, CVA/TIA, Diabetes Mellitus, Eye Disorder, GERD/Reflux, Hyperlipidemia, Hypertension, Myocardial Infarction (PR), Renal Disease, Syncope, Vascular Disorder Additional Past Medical History / Comment(s): L eye pain/optic ischemic neuropathy/TIA, EF 35% with mild aortic stenosis/mild mitral regurg. Other hx: IDDM type II, CKD stage II, TIAs, vertigo, weakness, gait disturbance/falls, bilateral hip and gluteal pain, paroxysmal A fib, anemia, L caratid disease 70%, hx of AVM of the cecum with cox plasma, anemia, macular degeneration bi laterally, L eye pain/optic ischemia, poor vision Last Myocardial Infarction Date:: 2017 History of Any Multi-Drug Resistant Organisms: None Reported Past Surgical History: Adenoidectomy, Coronary Bypass/CABG, Heart Catheteri zation, Orthopedic Surgery, Tonsillectomy Additional Past Surgical History / Comment(s): EGD, colonoscopies, 3 vessel CABG 1995 in [place], R carotid endartectomy 2015, ORIF L ankle d/t fracture. Past Anesthesia/Blood Transfusion Reactions: No Reported Reaction Past Psychological History: No Psychological Hx Reported Smoking Status: Former smoker Past Alcohol Use History: None Reported Past Drug Use History: None Reported - Past Family History Mother Family Medical History: No Reported History Additional Family Medical History / Comment(s): Mother at age 82 from old age. Father Family Medical History: No Reported History Additional Family Medical History / Comment(s): Father from old age and mal javed does not recall his age or any medical problems. General Exam Limitations: no limitations General appearance: alert, in no apparent distress Head exam: Present: normocephalic Eye exam: Present: normal appearance Neck exam: Present: normal inspection Respiratory exam: Present: normal lung sounds bilaterally Cardiovascular Exam: Present: regular rate, normal rhythm GI/Abdominal exam: Present: soft. Absent: distended, tenderness, guarding, rebound, rigid, pulsatile mass Rectal exam: Present: bloody stool. Absent: hemorrhoids Extremities exam: Present: normal inspection Neurological exam: Present: alert Psychiatric exam: Present: normal affect, normal mood Skin exam: Present: normal color Course Vital Signs 01/14/21 01/14/21 11:41 13:46 Temperature 98.9 F Pulse Rate 84 84 Respiratory 16 16 Rate Blood Pressure 175/57 186/102 O2 Sat by Pulse 96 90 L Oximetry Medical Decision Making - Medical Decision Making Patient reevaluated. Patient and family updated on results and plan. Case was discussed with Dr. Nash, who will admit his patient with GI consult. - Lab Data Result diagrams: 01/14/21 12:36 01/14/21 12:36 Lab Results 01/14/21 01/14/21 01/14/21 Range/Units 12:36 12:36 12:36 WBC 10.9 H (3.8-10.6) k/uL RBC 3.57 L (3.80-5.40) m/uL Hgb 11.2 L (11.4-16.0) gm/dL Hct 34.1 (34.0-46.0) % MCV 95.5 (80.0-100.0) fL MCH 31.2 (25.0-35.0) pg MCHC 32.7 (31.0-37.0) g/dL RDW 13.5 (11.5-15.5) % Plt Count 235 (150-450) k/uL MPV 8.0 Neutrophils % 84 % Lymphocytes % 7 % Monocytes % 6 % Eosinophils % 1 % Basophils % 0 % Neutrophils # 9.1 H (1.3-7.7) k/uL Lymphocytes # 0.8 L (1.0-4.8) k/uL Monocytes # 0.7 (0-1.0) k/uL Eosinophils # 0.1 (0-0.7) k/uL Basophils # 0.1 (0-0.2) k/uL PT 10.7 (9.0-12.0) sec INR 1.0 (<1.2) APTT 23.0 (22.0-30.0) sec Sodium 139 (137-145) mmol/L Potassium 4.5 (3.5-5.1) mmol/L Chloride 110 H (98-107) mmol/L Carbon Dioxide 23 (22-30) mmol/L Anion Gap 6 mmol/L BUN 18 H (7-17) mg/dL Creatinine 1.31 H (0.52-1.04) mg/dL Est GFR (CKD-EPI)AfAm 42 (>60 ml/min/1.73 sqM) Est GFR (CKD-EPI)NonAf 36 (>60 ml/min/1.73 sqM) Glucose 107 H (74-99) mg/dL Calcium 9.0 (8.4-10.2) mg/dL Total Bilirubin 0.9 (0.2-1.3) mg/dL AST 31 (14-36) U/L ALT 22 (4-34) U/L Alkaline Phosphatase 43 (38-126) U/L Total Protein 6.1 L (6.3-8.2) g/dL Albumin 3.4 L (3.5-5.0) g/dL Disposition Clinical Impression: Lower gastrointestinal hemorrhage Disposition: ADMITTED IP TO THIS HOSP Is patient prescribed a controlled substance at d/c from ED?: No Referrals: Marilyn Nash MD [Primary Care Provider] - 1-2 days Time of Disposition: 13:55
[2021-01-14 12:50] LABS: Basophils # (A) 0.1 k/uL (0-0.2); Basophils % (A) 0 %; Eosinophils # (A) 0.1 k/uL (0-0.7); Eosinophils % (A) 1 %; HCT 34.1 % (34.0-46.0); HGB 11.2 gm/dL (11.4-16.0); Lymphocytes # (A) 0.8 k/uL (1.0-4.8); Lymphocytes % (A) 7 %; MCH 31.2 pg (25.0-35.0); MCHC 32.7 g/dL (31.0-37.0); MCV 95.5 fL (80.0-100.0); Monocytes # (A) 0.7 k/uL (0-1.0); Monocytes % (A) 6 %; Neutrophils # (A) 9.1 k/uL (1.3-7.7); Neutrophils % (A) 84 %; Platelet Count 235 k/uL (150-450); RBC 3.57 m/uL (3.80-5.40); RDW 13.5 % (11.5-15.5); WBC 10.9 k/uL (3.8-10.6)
[2021-01-14 13:01] LABS: Albumin 3.4 g/dL (3.5-5.0); Potassium 4.5 mmol/L (3.5-5.1); Total Bilirubin 0.9 mg/dL (0.2-1.3); Total Protein 6.1 g/dL (6.3-8.2)
[2021-01-14 13:34] LABS: Prothrombin Time 10.7 sec (9.0-12.0)
[2021-01-14] MEDS ORDERED: NALOXONE 0.4 MG/ML 1 ML VIAL IV PRN (13:56)
[2021-01-14] MEDS: SODIUM CHLORIDE 0.9% 1,000 ML IV SCH (15:08)
[2021-01-14] MEDS ORDERED: ACETAMINOPHEN TAB 325 MG TAB PO PRN (15:30)
[2021-01-14] MEDS ORDERED: FUROSEMIDE 40 MG TAB PO PRN (20:43)
[2021-01-14] MEDS ORDERED: ALPRAZolam 0.5 MG TAB PO PRN (20:43)
[2021-01-14] MEDS: lisinopriL 20 MG TAB PO SCH (21:38)
[2021-01-14] MEDS: amLODIPine 5 MG TAB PO SCH (21:38)
[2021-01-14] MEDS: METOPROLOL TARTRATE 50 MG TAB PO SCH (21:38)
[2021-01-14] MEDS: FERROUS SULFATE 325 MG TAB PO SCH (21:38)
[2021-01-14] MEDS: ATORVASTATIN 80 MG TAB PO SCH (21:38)
[2021-01-14] MEDS: VIT A,C & E-LUTEIN-MINERALS 1 EACH TAB PO SCH (21:38)
[2021-01-14] MEDS: AMOXIC-POT CLAV 200-28.5MG/5ML 100 ML BOTTLE PO SCH (21:39)
[2021-01-14] MEDS: DOCUSATE 100 MG CAP PO SCH (21:39)
[2021-01-14] MEDS: INSULIN DETEMIR (LEVEMIR) 100 UNIT/ML SYR SQ SCH (21:39)
[2021-01-14] MEDS: PANTOPRAZOLE 40 MG/10 ML VIAL IVP SCH (21:39)
[2021-01-15] MEDS: SODIUM CHLORIDE 0.9% 1,000 ML IV SCH ×2 (04:59→16:35)
[2021-01-15 07:02] LABS: Glucose,Whole Blood 81 mg/dL (75-99)
[2021-01-15] MEDS: amLODIPine 5 MG TAB PO SCH (07:22)
[2021-01-15] MEDS: lisinopriL 20 MG TAB PO SCH ×2 (07:22→21:50)
[2021-01-15] MEDS: LINAGLIPTIN 5 MG TABLET PO SCH (07:22)
[2021-01-15] MEDS: METOPROLOL TARTRATE 50 MG TAB PO SCH ×2 (07:23→21:49)
[2021-01-15] MEDS: PANTOPRAZOLE 40 MG/10 ML VIAL IVP SCH ×2 (07:23→21:50)
[2021-01-15] MEDS: VIT A,C & E-LUTEIN-MINERALS 1 EACH TAB PO SCH ×2 (07:23→21:50)
[2021-01-15] MEDS: FERROUS SULFATE 325 MG TAB PO SCH ×2 (07:23→21:49)
[2021-01-15] MEDS: AMOXIC-POT CLAV 200-28.5MG/5ML 100 ML BOTTLE PO SCH ×2 (07:24→21:50)
[2021-01-15] MEDS ORDERED: NON FORMULARY DRUG (Cranberry Fruit Extract [Cranberry] 500 MG Tablet) PO SCH (09:00)
[2021-01-15] MEDS ORDERED: PANTOPRAZOLE 40 MG/10 ML VIAL IV SCH (09:00)
[2021-01-15 11:22] LABS: African American GFR (CKD) 46.4 (60.0-200.0); Anion Gap 7.6 mmol/L (4.00-12.00); BUN/Creat Ratio 13.33 Ratio (12.00-20.00); Calcium 8.6 mg/dL (8.7-10.3); Carbon Dioxide 22.4 mmol/L (21.6-31.8)
[2021-01-15 11:54] LABS: Glucose,Whole Blood 63 mg/dL (75-99)
[2021-01-15 11:57] LABS: Basophils # (A) 0.03 X 10*3/uL (0.00-0.10); Basophils % (A) 0.3 %; Eosinophils # (A) 0.15 X 10*3/uL (0.04-0.35); Eosinophils % (A) 1.3 %; HCT 33.4 % (37.2-46.3); HGB 10.1 g/dL (12.0-15.0); Lymphocytes # (A) 1.23 X 10*3/uL (0.90-5.00); Lymphocytes % (A) 10.4 %; MCH 30.4 pg (27.0-32.0); MCHC 30.2 g/dL (32.0-37.0); MCV 100.6 fL (80.0-97.0); Mean Platelet Volume 10.8 fL (9.5-12.2); Monocytes % (A) 9.3 %; Neutrophils # (A) 9.17 X 10*3/uL (1.80-7.70); Neutrophils % (A) 77.8 %; Platelet Count 231 X 10*3/uL (140-440); RBC 3.32 X 10*6/uL (4.10-5.20); RDW 14.3 % (11.5-14.5); WBC 11.79 X 10*3/uL (4.50-10.00)
[2021-01-15 12:10] LABS: Glucose,Whole Blood 70 mg/dL (75-99)
--- NOTE | 2021-01-15 14:36 | P.CONS ---
History of Present Illness - Reason for Consult Consult date: 01/15/21 Rectal bleeding Requesting physician: Brian Plaza - Chief Complaint Lower GI bleed - History of Present Illness This is a pleasant 89-year-old female who presented to the emergency department with concerns of rectal bleeding. Yesterday she states she had dark stools with 3 episodes of bright red blood per rectum. She denied any abdominal pain or cramping with the episode. She was recently admitted to the hospital and discharged 2 days ago for a cat bite. Her past medical history includes atrial fibrillation on Xarelto coronary artery disease, history of CVA, diabetes mellitus, GERD, hyperlipidemia, hypertension, MN and chronic renal disease. She states her last dose of Xarelto was 2 days ago. Is also on iron supplementation at home. Admission hemoglobin was 11.2, she had a positive occult stool. She's had multiple endoscopies for workup of GI bleed. Her last endoscopy was for an EGD in August 2020 with findings of scattered duodenal angiectasia with no active bleeding status post cautery using the gold probe, small hiatal hernia. I or 2 that she had an EGD and colonoscopy in February 2020 which revealed cecal AVM status post cautery. Also in 2017 she had an EGD and colonoscopy which showed scattered diverticulosis without any active bleeding, there is hemolysis blood throughout the colon and a large AVM treated with argon plasma in the cecum. EGD showed a patent Schatzki's ring. She is currently denying any abdominal pain, nausea, or vomiting. She has not had any further blood per rectum since she's been admitted to the hospital. Xarelto continues to be on hold Review of Systems Constitutional: Denies chills, Denies fever Ears, nose, mouth and throat: Denies headache, Denies sore throat Cardiovascular: Denies chest pain, Denies shortness of breath Respiratory: Denies cough Gastrointestinal: Reports BRBPR, Reports hematochezia, Denies abdominal pain, Denies coffee ground emesis, Denies diarrhea, Denies hematemesis, Denies nausea, Denies vomiting Genitourinary: Denies dysuria, Denies hematuria Musculoskeletal: Denies myalgias Integumentary: Denies pruritus, Denies rash Neurological: Denies numbness, Denies weakness Endocrine: Denies fatigue, Denies weight change Past Medical History Past Medical History: Atrial Fibrillation, Coronary Artery Disease (CAD), Chest Pain / Angina, Heart Failure, CVA/TIA, Diabetes Mellitus, Eye Disorder, GERD/Reflux, Hyperlipidemia, Hypertension, Myocardial Infarction (MN), Renal Disease, Syncope, Vascular Disorder Additional Past Medical History / Comment(s): L eye pain/optic ischemic neuropathy/TIA, EF 35% with mild aortic stenosis/mild mitral regurg. 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 Past Anesthesia/Blood Transfusion Reactions: No Reported Reaction Past Psychological History: No Psychological Hx Reported Additional Psychological History / Comment(s): Pt resides with her luis at this time. She has [facility]. She is using a walker and has a wheelchair for going to and from apartment. She no longer drives, her luis drives. Smoking Status: Former smoker Past Alcohol Use History: None Reported Additional Past Alcohol Use History / Comment(s): Pt started smoking in 1956 and quit in 2015. Past Drug Use History: None Reported Additional Drug Use History / Comment(s): Patient smoked for 60+ years. Quit in 2015 - Past Family History Mother Family Medical History: No Reported History Additional Family Medical History / Comment(s): Mother at age 82 from old age. Father Family Medical History: No Reported History Additional Family Medical History / Comment(s): Father from old age and patient does not recall his age or any medical problems. Medications and Allergies Home Medications Medication Instructions Recorded Confirmed Type Insulin Detemir [Levemir Flextouch] 14 units SQ HS@2200 03/02/20 01/14/21 History Linagliptin [Tradjenta] 5 mg PO DAILY@1000 04/08/20 01/14/21 History Metoprolol Tartrate [Lopressor] 50 mg PO BID 04/08/20 01/14/21 History Ferrous Sulfate [Iron (65 MG 325 mg PO BID 05/23/20 01/14/21 History Elemental)] Vit C/E/Zn/Coppr/Lutein/Zeaxan 1 cap PO BID 05/23/20 01/14/21 History [Preservision Areds 2 Softgel] ALPRAZolam [Xanax] 0.5 mg PO BID PRN 06/21/20 01/14/21 History Atorvastatin [Lipitor] 80 mg PO HS@2200 08/26/20 01/14/21 History Cranberry Fruit Extract [Cranberry] 1,000 mg PO DAILY 08/26/20 01/14/21 History lisinopriL 20 mg PO BID 08/26/20 01/14/21 History Docusate [Colace] 100 mg PO HS 01/09/21 01/14/21 History Furosemide [Lasix] 40 mg PO DAILY PRN 01/09/21 01/14/21 History Pantoprazole [Protonix] 40 mg PO DAILY 01/09/21 01/14/21 History Rivaroxaban [Xarelto] 15 mg PO HS 01/09/21 01/14/21 History amLODIPine [Norvasc] 5 mg PO DAILY #30 tab 01/12/21 01/14/21 Rx Amoxic-Pot Clav 875-125Mg 1 tab PO Q12HR 01/14/21 01/14/21 History [Augmentin 875-125] Allergies Allergy/AdvReac Type Severity Reaction Status Date / Time zolpidem [From Ambien] AdvReac Hallucinati Verified 01/14/21 13:41 ons Physical Exam Vitals: Vital Signs Temp Pulse Pulse Resp BP BP Pulse Ox 01/15/21 08:00 98.2 F 71 16 149/62 91 L 01/15/21 07:30 16 01/15/21 02:00 98.8 F 68 16 149/51 92 L 01/14/21 22:40 189/49 01/14/21 20:35 92 18 01/14/21 20:00 98.8 F 92 18 201/60 97 01/14/21 19:00 97.7 F 84 18 117/59 98 01/14/21 18:08 99.7 F H 89 18 159/97 98 01/14/21 16:44 100.8 F H 71 16 98 01/14/21 15:50 102.6 F H 24 95 01/14/21 14:55 89 16 191/72 92 L Intake and Output 01/14/21 01/15/21 01/15/21 22:59 06:59 14:59 Other: # Voids 2 Weight 58.967 kg General appearance: The patient is alert, oriented, in no acute distress. HET: Head is normocephalic and atraumatic. Pupils are equal and reactive. Oropharynx is clear without lesions. Neck: Supple without lymphadenopathy. Trachea midline. Heart: S1 S2. Regular rate and rhythm. Lungs: Clear to auscultation Abdomen: Soft, nontender, nondistended with bowel sounds. No guarding or rigidity. Extremities: Normal skin color and turgor. No pedal edema. Neurological: No focal deficits. Alert and oriented 3. Results CBC & Chem 7: 01/15/21 07:42 01/15/21 07:42 Labs: Abnormal Lab Results - Last 24 Hours (Table) 01/14/21 01/15/21 01/15/21 Range/Units 12:36 07:42 07:42 WBC 11.79 H (4.50-10.00) X 10*3/uL RBC 3.32 L (4.10-5.20) X 10*6/uL Hgb 10.1 L (12.0-15.0) g/dL Hct 33.4 L (37.2-46.3) % MCV 100.6 H (80.0-97.0) fL MCHC 30.2 L (32.0-37.0) g/dL Immature Gran # 0.11 H (0.00-0.04) X 10*3/uL Neutrophils # 9.17 H (1.80-7.70) X 10*3/uL Monocytes # 1.10 H (0.20-1.00) X 10*3/uL Chloride 112 H (96-109) mmol/L Est GFR (CKD-EPI)AfAm 46.4 L (60.0-200.0) Est GFR (CKD-EPI)NonAf 40.0 L (60.0-200.0) POC Glucose (mg/dL) (75-99) mg/dL Calcium 8.6 L (8.7-10.3) mg/dL Stool Occult Blood Positive H (Negative) 01/15/21 01/15/21 Range/Units 11:52 12:09 WBC (4.50-10.00) X 10*3/uL RBC (4.10-5.20) X 10*6/uL Hgb (12.0-15.0) g/dL Hct (37.2-46.3) % MCV (80.0-97.0) fL MCHC (32.0-37.0) g/dL Immature Gran # (0.00-0.04) X 10*3/uL Neutrophils # (1.80-7.70) X 10*3/uL Monocytes # (0.20-1.00) X 10*3/uL Chloride (96-109) mmol/L Est GFR (CKD-EPI)AfAm (60.0-200.0) Est GFR (CKD-EPI)NonAf (60.0-200.0) POC Glucose (mg/dL) 63 L 70 L (75-99) mg/dL Calcium (8.7-10.3) mg/dL Stool Occult Blood (Negative) Assessment and Plan (1) Acute GI bleeding Narrative/Plan: This is a pleasant 89-year-old female who was admitted to the hospital with complaints of 3 episodes of painless bright red blood per rectum yesterday. She has a history of chronic atrial fibrillation on Xarelto. She has a significant history of GI bleed with AVMs. Her last upper endoscopy was in 09/13/2020 with scattered duodenal angiomata ectasia with no active bleeding status was cautery. Previous to that she had a EGD and colonoscopy in February 2020 showing a cecal AVM, and previous to that in 2017 she had EGD and colonoscopy with the EGD rev ealing a patent Schatzki ring, colonoscopy scattered diverticulosis without any active bleeding, hematoma was sized blood throughout the colon with a large AVM treated with argon plasma in the cecum. She had positive occult stool this admission along with a hemoglobin of 11.2. Patient likely again has AVM, however cannot rule out diverticular bleed. At this time we'll continue to hold Xarelto, patient has not had any further bleeding therefore will hold off on any endoscopic evaluation at this time. However patient continues to have rectal bleeding will consider further evaluation with endoscopy. Current Visit: No Status: Acute Code(s): K92.2 - GASTROINTESTINAL HEMORRHAGE, UNSPECIFIED SNOMED Code(s): 97132189 (2) Hematochezia Current Visit: No Status: Acute Code(s): K92.1 - MELENA SNOMED Code(s): 096566253 (3) History of atrial fibrillation Narrative/Plan: History of chronic atrial fibrillation on Xarelto Current Visit: Yes Status: Acute Code(s): Z86.79 - PERSONAL HISTORY OF OTHER DISEASES OF THE CIRCULATORY SYSTEM SNOMED Code(s): 626725598 Plan: 1. Continue symptomatic and supportive care 2. Daily CBC 3. Continue to hold Xarelto 4. Continue clear liquid diet 5. Continue to monitor for signs and symptoms of GI bleed 6. No plans for any endoscopic evaluation at this time, if patient continues to have further GI bleed will consider further evaluation with endoscopy Thank you for this consultation, we will continue to follow Dr. Gagan Nazario I agree with the dictator's note, documented as a scribe by Lilian Ballesteros.
[2021-01-15 16:45] LABS: Glucose,Whole Blood 76 mg/dL (75-99)
[2021-01-15 20:57] LABS: Glucose,Whole Blood 80 mg/dL (75-99)
[2021-01-15] MEDS: INSULIN DETEMIR (LEVEMIR) 100 UNIT/ML SYR SQ SCH (21:45)
[2021-01-15] MEDS: DOCUSATE 100 MG CAP PO SCH (21:49)
[2021-01-15] MEDS: ATORVASTATIN 80 MG TAB PO SCH (21:50)
[2021-01-16] MEDS: SODIUM CHLORIDE 0.9% 1,000 ML IV SCH ×2 (05:37→21:57)
[2021-01-16] MEDS: hydrALAZINE HCL 20 MG/ML 1 ML VIAL IVP PRN ×2 (05:45→17:05)
[2021-01-16 08:18] LABS: Glucose,Whole Blood 96 mg/dL (75-99)
[2021-01-16] MEDS: LINAGLIPTIN 5 MG TABLET PO SCH (08:57)
[2021-01-16] MEDS: METOPROLOL TARTRATE 50 MG TAB PO SCH ×2 (08:57→21:56)
[2021-01-16] MEDS: PANTOPRAZOLE 40 MG/10 ML VIAL IVP SCH ×2 (08:57→21:56)
[2021-01-16] MEDS: FERROUS SULFATE 325 MG TAB PO SCH ×2 (08:57→21:56)
[2021-01-16] MEDS: AMOXIC-POT CLAV 200-28.5MG/5ML 100 ML BOTTLE PO SCH ×2 (08:58→21:56)
[2021-01-16] MEDS: amLODIPine 5 MG TAB PO SCH (08:58)
[2021-01-16] MEDS: lisinopriL 20 MG TAB PO SCH ×2 (08:58→21:56)
[2021-01-16] MEDS: DICLOFENAC 0.1% OPHTH SOLN 2.5 ML BTL BOTH EYES SCH ×3 (08:58→21:57)
[2021-01-16] MEDS: VIT A,C & E-LUTEIN-MINERALS 1 EACH TAB PO SCH ×2 (09:05→21:56)
[2021-01-16 11:24] LABS: Glucose,Whole Blood 83 mg/dL (75-99)
--- NOTE | 2021-01-16 12:29 | P.PN ---
Subjective Progress Note Date: 01/16/21 Principal diagnosis: GI bleed This is a pleasant 89-year-old female who presented to the emergency department with concerns of rectal bleeding. Two days ago she states she had dark stools with 3 episodes of bright red blood per rectum. She denied any abdominal pain or cramping with the episode. Seen and examined lying in bed. She's had no further reported blood in her stool or blood per rectum. She denies any abdominal pain, nausea, or vomiting. She has had multiple endoscopic evaluations within the last 3 years with findings of AVMs. The patient states today she has had no further bleeding since she's been in the hospital, denies any abdominal pain, nausea, or vomiting. Hemoglobin is stable at 10.1. Plan is for discharge home tomorrow. Objective - Vital Signs Vital signs: Vital Signs Temp 98.4 F 01/16/21 05:35 Pulse 86 01/16/21 05:35 Resp 14 01/16/21 05:35 BP 172/63 01/16/21 06:22 Pulse Ox 90 L 01/16/21 05:35 Intake & Output 01/15/21 01/16/21 01/16/21 18:59 06:59 18:59 Other: Voiding Method Bedside Commode # Voids 6 1 - Exam General appearance: The patient is alert, oriented, appears in no acute distress. HET: Head is normocephalic and atraumatic. Conjunctiva pink. Sclera anicteric. Neck: Supple without lymphadenopathy. Abdomen: Soft, nontender, nondistended with bowel sounds. No guarding or rigidity. Extremities: Normal skin color and turgor. No pedal edema Skin: No rashes, no jaundice Neurological: No focal deficits. Alert and oriented 3. - Labs CBC & Chem 7: 01/15/21 07:42 01/15/21 07:42 Labs: Abnormal Lab Results - Last 24 Hours (Table) 01/15/21 01/15/21 01/15/21 Range/Units 07:42 07:42 11:52 WBC 11.79 H (4.50-10.00) X 10*3/uL RBC 3.32 L (4.10-5.20) X 10*6/uL Hgb 10.1 L (12.0-15.0) g/dL Hct 33.4 L (37.2-46.3) % MCV 100.6 H (80.0-97.0) fL MCHC 30.2 L (32.0-37.0) g/dL Immature Gran # 0.11 H (0.00-0.04) X 10*3/uL Neutrophils # 9.17 H (1.80-7.70) X 10*3/uL Monocytes # 1.10 H (0.20-1.00) X 10*3/uL Chloride 112 H (96-109) mmol/L Est GFR (CKD-EPI)AfAm 46.4 L (60.0-200.0) Est GFR (CKD-EPI)NonAf 40.0 L (60.0-200.0) POC Glucose (mg/dL) 63 L (75-99) mg/dL Calcium 8.6 L (8.7-10.3) mg/dL 01/15/21 Range/Units 12:09 WBC (4.50-10.00) X 10*3/uL RBC (4.10-5.20) X 10*6/uL Hgb (12.0-15.0) g/dL Hct (37.2-46.3) % MCV (80.0-97.0) fL MCHC (32.0-37.0) g/dL Immature Gran # (0.00-0.04) X 10*3/uL Neutrophils # (1.80-7.70) X 10*3/uL Monocytes # (0.20-1.00) X 10*3/uL Chloride (96-109) mmol/L Est GFR (CKD-EPI)AfAm (60.0-200.0) Est GFR (CKD-EPI)NonAf (60.0-200.0) POC Glucose (mg/dL) 70 L (75-99) mg/dL Calcium (8.7-10.3) mg/dL Assessment and Plan (1) Acute GI bleeding Narrative/Plan: This is a pleasant 89-year-old female who was admitted to the hospital with complaints of 3 episodes of painless bright red blood per rectum yesterday. She has a history of chronic atrial fibrillation on Xarelto. She has a significant history of GI bleed with AVMs. Her last upper endoscopy was in 09/13/2020 with scattered duodenal angiomata ectasia with no active bleeding status was cautery. Previous to that she had a EGD and colonoscopy in February 2020 showing a cecal AVM, and previous to that in 2017 she had EGD and colonoscopy with the EGD revealing a patent Schatzki ring, colonoscopy scattered diverticulosis without any active bleeding, hematoma was sized blood throughout the colon with a large AVM treated with argon plasma in the cecum. She had positive occult stool this admission along with a hemoglobin of 11.2. Patient likely again has AVM, however cannot rule out diverticular bleed. At this time we'll continue to hold Xarelto, patient has not had any further bleeding therefore will hold off on any endoscopic evaluation at this time. However patient continues to have rectal bleeding will consider further evaluation with endoscopy. Current Visit: No Status: Acute Code(s): K92.2 - GASTROINTESTINAL HEMORRHAGE, UNSPECIFIED SNOMED Code(s): 51844225 (2) Hematochezia Current Visit: No Status: Acute Code(s): K92.1 - MELENA SNOMED Code(s): 957064439 (3) History of atrial fibrillation Narrative/Plan: History of chronic atrial fibrillation on Xarelto Current Visit: Yes Status: Acute Code(s): Z86.79 - PERSONAL HISTORY OF OTHER DISEASES OF THE CIRCULATORY SYSTEM SNOMED Code(s): 128233018 Plan: 1. Continue symptomatic and supportive care 2. Daily CBC 3. Continue to hold Xarelto 4. Advanced to full liquid diet 5. Continue to monitor for signs and symptoms of GI bleed 6. No plans for any endoscopic evaluation at this time, if patient continues to have further GI bleed will consider further evaluation with endoscopy Thank you for this consultation, we will continue to follow Dr. Gagan Nazario I agree with the dictator's note, documented as a scribe by Lilian Ballesteros.
[2021-01-16 16:31] LABS: Glucose,Whole Blood 85 mg/dL (75-99)
--- NOTE | 2021-01-16 18:33 | P.HPIM ---
History of Present Illness H&P Date: 01/15/21 Chief Complaint: GI Bleed. 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 the patient presented to the emergency center at [facility] after she was recently diagnosed and treated for right index finger cellulitis due to cat bite, she was doing fine at home up until today when her daughter called and stated that her mother developed to have a significant rectal bleeding with increased blood clots she was advised to stop the Xarelto under come to the ER for evaluation to check her hemoglobin as well, patient hemoglobin was stable at that time, she was taken off Xarelto, patient was not able to swallow her Augmentin, patient ended up going to the emergency department for evaluation she was admitted for evaluation by gastro enterology . REVIEW OF SYSTEMS Constitutional: No fever, no chills, no night sweats. No weight change. Positive for weakness, positive for fatigue no lethargy. No daytime sleepiness. EENT: No headache. No blurred vision or double vision, no loss of vision. No loss of Hearing, no ringing in the ears, no dizziness. No nasal drainage or congestion. No epistaxis. No sore throat. Lungs: No shortness of breath, cough, no sputum production. No wheezing. Cardiovascular: No chest pain, no lower extremity edema. No palpitations. No paroxysmal nocturnal dyspnea. No orthopnea. No lightheadedness or dizziness. No syncopal episodes. Abdominal: No abdominal pain. No nausea, vomiting. No diarrhea. No constipation. Positive for bloody stools.. Positive for loss of appetite. Genitourinary: No dysuria, increased frequency, urgency. No urinary retention. Musculoskeletal: No myalgias. m positive for uscle weakness, positive for gait dysfunction, no frequent falls. No back pain. No neck pain. Integumentary: Reports wounds, no lesions. No rash or pruritus. No unusual bruising. No change in hair or nails. Neurologic: No aphasia. No facial droop. No change in mentation. No head injury. No headache. No paralysis. No paresthesia. Psychiatric: No depression. No anxiety. No mood swings. Endocrine: No abnormal blood sugars. No weight change. No excessive sweating or thirst. No cold intolerance. SOCIAL HISTORY Patient was a smoker from 1956 until 2016. No illicit drug use, no alcohol use.. FAMILY HISTORY Mother at age 82 from old age. Father from old age and she cannot recall his age at that time. Patient has one son with history of throat cancer in remission. Patient has one daughter currently under treatment for cancer. Patient does not have any brothers or sisters. PHYSICAL EXAMINATION Gen: This is an 89-year-old female. Patient is resting in bed. She appears to be in no acute distress. HEENT: Head is atraumatic, normocephalic. Pupils equal, round. Sclerae is anicteric, conjunctiva was slightly pale, mucous membranes of the mouth somewhat dry. NECK: Supple. No JVD. No lymphadenopathy. No thyromegaly. LUNGS: Clear to auscultation. No wheezes or rhonchi. No intercostal retractions. HEART: First heart sound is depressed, second heart sounds normal, there is systolic murmur 2/6 located at the right second intercostal space related to the base of the neck ABDOMEN: Soft. Bowel sounds are present. No masses. No tenderness. EXTREMITIES: No pedal edema. No calf tenderness. Dorsalis pedis +2 bilaterally. Right hand at the distal metacarpal area of the index finger has significant erythema, edema and 4 puncture sites. No active drainage. Decreased range of motion. Capillary refill immediate NEUROLOGICAL: Patient is awake, alert and oriented x3. Cranial nerves 2 through 12 are grossly intact, muscle power 4 out of 5 in upper extremities and 3 out of 5 in bilateral lower extremities. ASSESSMENT AND PLAN 1. GI Bleed of unclear etiology possibly upper GI bleed due to PUD VS AVM in in her cecum. Hold Xarelto for the next 2 days, continue IV fluid resuscitation, monitor the patient very closely, GI consultation, patient is not planning for any upper or lower endoscopy. 1. Cellulitis of the right index finger secondary to cat bite. Patient was treated as an inpatient with Unasyn and she was switched to oral Augmentin she is to finish seven-day of that. 2. Acute kidney injury. Resolved. 3. Paroxysmal atrial fibrillation. Continue metoprolol 50 g twice daily, hold Xarelto for now. 4. History of coronary artery disease status post three-vessel CABG in 1995. Continue patient on metoprolol 50 mg orally twice every day as well as Lipitor 80 mg orally once every day, we will hold ASA. 5. Carotid artery disease status post carotid endarterectomy. Stable patient has had a CTA of the carotid arteries in the past. Continue Lipitor 80 mg orally daily for secondary prevention. 6. Diabetes mellitus type 2. Continue Levemir 14 units at bedtime and NovoLog scale before meals and at bedtime, Tradjenta 5 mg daily. Continue Accu-Chek before each meal and at bedtime along with a sliding scale insulin. 7. Hypertension, hypertensive cardiovascular disease. Continue metoprolol 50 mg orally twice every day, continue lisinopril 20 mg orally once every day, add amlodipine 5 minute gram orally once every day, patient will be started on hydralazine 10 mg IV push every 4 hours as needed for systolic greater than 160. 8. Hyperlipidemia. Continue Lipitor 80 mg daily. 9. Chronic vertigo. Stable. 10. Gastroesophageal reflux disease. Continue Protonix 40 mg IV push twice a day. 11. DVT prophylaxis. Bilateral knee-high NIXON hose, hold Xarelto for now. 13. GI prophylaxis. Continue patient on Protonix 40 mg IVP twice every day. 14. Admitted to inpatient. Estimate a length of stay 2 midnights . Patient will be admitted to the hospital for a minimum of 2 night stay. DISCHARGE PLAN Home. Past Medical History Past Medical History: Atrial Fibrillation, Coronary Artery Disease (CAD), Chest Pain / Angina, Heart Failure, CVA/TIA, Diabetes Mellitus, Eye Disorder, GERD/Reflux, Hyperlipidemia, Hypertension, Myocardial Infarction ([place]), Renal Disease, Syncope, Vascular Disorder Additional Past Medical History / Comment(s): L eye pain/optic ischemic neuropat hy/TIA, EF 35% with mild aortic stenosis/mild mitral regurg. Other hx: IDDM type II, CKD stage II, TIAs, vertigo, weakness, gait disturbance/falls, bilateral hip and gluteal pain, paroxysmal A fib, anemia, L caratid disease 70%, hx of AVM of the cecum with cox plasma, anemia, macular degeneration bilaterally, L eye pain/optic ischemia, poor vision Last Myocardial Infarction Date:: 2017 History of Any Multi-Drug Resistant Organisms: None Reported Past Surgical History: Adenoidectomy, Coronary Bypass/CABG, Heart Cat heterization, Orthopedic Surgery, Tonsillectomy Additional Past Surgical History / Comment(s): EGD, colonoscopies, 3 vessel CABG 1995 in [place], R carotid endartectomy 2015, ORIF L ankle d/t fracture. Past Anesthesia/Blood Transfusion Reactions: No Reported Reaction Past Psychological History: No Psychological Hx Reported Additional Psychological History / Comment(s): Pt resides with her luis at this time. She has [facility]. She is using a walker and has a wheelchair for going to and from apartment. She no longer drives, her luis drives. Smoking Status: Former smoker Past Alcohol Use History: None Reported Additional Past Alcohol Use History / Comment(s): Pt started smoking in 1955 and quit in 2015. Past Drug Use History: None Reported Additional Drug Use History / Comment(s): Patient smoked for 60+ years. Quit in 2015 - Past Family History Mother Family Medical History: No Reported History Additional Family Medical History / Comment(s): Mother at age 82 from old age. Father Family Medical History: No Reported History Additional Family Medical History / Comment(s): Father from old age and patient does not recall his age or any medical problems. Medications and Allergies Home Medications Medication Instructions Recorded Confirmed Type Insulin Detemir [Levemir Flextouch] 14 units SQ HS@2200 03/02/20 01/14/21 History Linagliptin [Tradjenta] 5 mg PO DAILY@1000 04/08/20 01/14/21 History Metoprolol Tartrate [Lopressor] 50 mg PO BID 04/08/20 01/14/21 History Ferrous Sulfate [Iron (65 MG 325 mg PO BID 05/23/20 01/14/21 History Elemental)] Vit C/E/Zn/Coppr/Lutein/Zeaxan 1 cap PO BID 05/23/20 01/14/21 History [Preservision Areds 2 Softgel] ALPRAZolam [Xanax] 0.5 mg PO BID PRN 06/21/20 01/14/21 History Atorvastatin [Lipitor] 80 mg PO HS@2200 08/26/20 01/14/21 History Cranberry Fruit Extract [Cranberry] 1,000 mg PO DAILY 08/26/20 01/14/21 History lisinopriL 20 mg PO BID 08/26/20 01/14/21 History Docusate [Colace] 100 mg PO HS 01/09/21 01/14/21 History Furosemide [Lasix] 40 mg PO DAILY PRN 01/09/21 01/14/21 History Pantoprazole [Protonix] 40 mg PO DAILY 01/09/21 01/14/21 History Rivaroxaban [Xarelto] 15 mg PO HS 01/09/21 01/14/21 History amLODIPine [Norvasc] 5 mg PO DAILY #30 tab 01/12/21 01/14/21 Rx Amoxic-Pot Clav 875-125Mg 1 tab PO Q12HR 01/14/21 01/14/21 History [Augmentin 875-125] Allergies Allergy/AdvReac Type Severity Reaction Status Date / Time zolpidem [From Ambien] AdvReac Hallucinati Verified 01/14/21 13:41 ons Physical Exam Vitals: Vital Signs Temp Pulse Pulse Resp BP BP Pulse Ox 01/15/21 02:00 98.8 F 68 16 149/51 92 L 01/14/21 22:40 189/49 01/14/21 20:35 92 18 01/14/21 20:00 98.8 F 92 18 201/60 97 01/14/21 19:00 97.7 F 84 18 117/59 98 01/14/21 18:08 99.7 F H 89 18 159/97 98 01/14/21 16:44 100.8 F H 71 16 98 01/14/21 15:50 102.6 F H 24 95 01/14/21 14:55 89 16 191/72 92 L 01/14/21 13:46 84 16 186/102 90 L 01/14/21 11:41 98.9 F 84 16 175/57 96 Intake and Output 01/14/21 01/15/21 01/15/21 22:59 06:59 14:59 Other: # Voids 2 Weight 58.967 kg Results CBC & Chem 7: 01/15/21 07:42 01/15/21 07:42 Labs: Abnormal Lab Results - Last 24 Hours (Table) 01/14/21 01/14/21 01/14/21 Range/Units 12:36 12:36 12:36 WBC 10.9 H (3.8-10.6) k/uL RBC 3.57 L (3.80-5.40) m/uL Hgb 11.2 L (11.4-16.0) gm/dL Neutrophils # 9.1 H (1.3-7.7) k/uL Lymphocytes # 0.8 L (1.0-4.8) k/uL Chloride 110 H (98-107) mmol/L BUN 18 H (7-17) mg/dL Creatinine 1.31 H (0.52-1.04) mg/dL Glucose 107 H (74-99) mg/dL Total Protein 6.1 L (6.3-8.2) g/dL Albumin 3.4 L (3.5-5.0) g/dL Stool Occult Blood Positive H (Negative) Thrombosis Risk Factor Assmnt - Choose All That Apply Each Risk Factor Represents 3 Points: Age 75 years or older Thrombosis Risk Factor Assessment Total Risk Factor Score: 3 Thrombosis Risk Factor Assessment Level: Moderate Risk
--- NOTE | 2021-01-16 18:37 | P.PN ---
Subjective Progress Note Date: 01/16/21 HISTORY OF PRESENT ILLNESS This is an 89-year-old female patient with past medical history of coronary artery disease status post three-vessel CABG with FRIEDMAN to LAD and SVG to RCA back in 1995, carotid artery disease status post carotid endarterectomy in 2015, diabetes mellitus type 2, paroxysmal atrial fibrillation chronically on Xarelto, hypertension, hyperlipidemia, chronic vertigo history of AVM of the cecum status post argon plasma in 2018 the patient presented to the emergency center at [facility] after she was recently diagnosed and treated for right index finger cellulitis due to cat bite, she was doing fine at home up until today when her daughter called and stated that her mother developed to have a significant rectal bleeding with increased blood clots she was advised to stop the Xarelto under come to the ER for evaluation to check her hemoglobin as well, patient hemoglobin was stable at that time, she was taken off Xarelto, patient was not able to swallow her Augmentin, patient ended up going to the emergency department for evaluation she was admitted for evaluation by gastroenterology . 01/16: Patient is complaining of increased pain in the right eye as well as the left eye, she will be started back on diclofenac 0.1% drops 1 drop in both eyes twice every day, patient has not had any bleeding episodes, she did have a good bowel movement that was normal, she has no chest pain or shortness breath, her cellulitis of the right hand is much better, she was seen in consultation by gastroenterology and no plan for any endoscopy at this point in time, patient most likely will be discharged home tomorrow morning if her hemoglobin is stable. REVIEW OF SYSTEMS Constitutional: No fever, no chills, no night sweats. No weight change. Positive for weakness, positive for fatigue no lethargy. No daytime sleepiness. EENT: No headache. No blurred vision or double vision, no loss of vision. No loss of Hearing, no ringing in the ears, no dizziness. No nasal drainage or congestion. No epistaxis. No sore throat. Lungs: No shortness of breath, cough, no sputum production. No wheezing. Cardiovascular: No chest pain, no lower extremity edema. No palpitations. No paroxysmal nocturnal dyspnea. No orthopnea. No lightheadedness or dizziness. No syncopal episodes. Abdominal: No abdominal pain. No nausea, vomiting. No diarrhea. No constipation. Positive for bloody stools.. Positive for loss of appetite. Genitourinary: No dysuria, increased frequency, urgency. No urinary retention. Musculoskeletal: No myalgias. m positive for uscle weakness, positive for gait dysfunction, no frequent falls. No back pain. No neck pain. Integumentary: Reports wounds, no lesions. No rash or pruritus. No unusual bruising. No change in hair or nails. Neurologic: No aphasia. No facial droop. No change in mentation. No head injury. No headache. No paralysis. No paresthesia. Psychiatric: No depression. No anxiety. No mood swings. Endocrine: No abnormal blood sugars. No weight change. No excessive sweating or thirst. No cold intolerance. PHYSICAL EXAMINATION Gen: This is an 89-year-old female. Patient is resting in bed. She appears to be in no acute distress. HEENT: Head is atraumatic, normocephalic. Pupils equal, round. Sclerae is anicteric, conjunctiva was slightly pale, mucous membranes of the mouth somewhat dry. NECK: Supple. No JVD. No lymphadenopathy. No thyromegaly. LUNGS: Clear to auscultation. No wheezes or rhonchi. No intercostal retractions. HEART: First heart sound is depressed, second heart sounds normal, there is systolic murmur 2/6 located at the right second intercostal space related to the base of the neck ABDOMEN: Soft. Bowel sounds are present. No masses. No tenderness. EXTREMITIES: No pedal edema. No calf tenderness. Dorsalis pedis +2 bilaterally. Right hand at the distal metacarpal area of the index finger has significant erythema, edema and 4 puncture sites. No active drainage. Decreased range of motion. Capillary refill immediate NEUROLOGICAL: Patient is awake, alert and oriented x3. Cranial nerves 2 through 12 are grossly intact, muscle power 4 out of 5 in upper extremities and 3 out of 5 in bilateral lower extremities. ASSESSMENT AND PLAN 1. GI Bleed of unclear etiology possibly upper GI bleed due to PUD VS AVM in in her cecum. Hold Xarelto for the next 2 days, continue IV fluid resuscitation, monitor the patient very closely, GI consultation, patient is not planning for any upper or lower endoscopy. 1. Cellulitis of the right index finger secondary to cat bite. Patient was treated as an inpatient with Unasyn and she was switched to oral Augmentin she i s to finish seven-day of that. 2. Acute kidney injury. Resolved. 3. Paroxysmal atrial fibrillation. Continue metoprolol 50 g twice daily, hold Xarelto for now. 4. History of coronary artery disease status post three-vessel CABG in 1995. Continue patient on metoprolol 50 mg orally twice every day as well as Lipitor 80 mg orally once every day, we will hold ASA. 5. Carotid artery disease status post carotid endarterectomy. Stable patient has had a CTA of the carotid arteries in the past. Continue Lipitor 80 mg orally daily for secondary prevention. 6. Diabetes mellitus type 2. Continue Levemir 14 units at bedtime and NovoLog scale before meals and at bedtime, Tradjenta 5 mg daily. Continue Accu-Chek before each meal and at bedtime along with a sliding scale insulin. 7. Hypertension, hypertensive cardiovascular disease. Continue metoprolol 50 mg orally twice every day, continue lisinopril 20 mg orally once every day, add amlodipine 5 minute gram orally once every day, patient will be started on hydralazine 10 mg IV push every 4 hours as needed for systolic greater than 160. 8. Hyperlipidemia. Continue Lipitor 80 mg daily. 9. Chronic vertigo. Stable. 10. Gastroesophageal reflux disease. Continue Protonix 40 mg IV push twice a day. 11. DVT prophylaxis. Bilateral knee-high NIXON hose, hold Xarelto for now. 13. GI prophylaxis. Continue patient on Protonix 40 mg IVP twice every day. 14. Hopefully home tomorrow morning.. DISCHARGE PLAN Home. Objective - Vital Signs Vital signs: Vital Signs Temp 98.4 F 01/16/21 05:35 Pulse 86 01/16/21 05:35 Resp 14 01/16/21 05:35 BP 172/63 01/16/21 06:22 Pulse Ox 90 L 01/16/21 05:35 Intake & Output 01/15/21 01/16/21 01/16/21 18:59 06:59 18:59 Other: Voiding Method Bedside Commode # Voids 6 1 - Labs CBC & Chem 7: 01/15/21 07:42 01/15/21 07:42 Labs: Abnormal Lab Results - Last 24 Hours (Table) 01/15/21 01/15/21 01/15/21 Range/Units 07:42 07:42 11:52 WBC 11.79 H (4.50-10.00) X 10*3/uL RBC 3.32 L (4.10-5.20) X 10*6/uL Hgb 10.1 L (12.0-15.0) g/dL Hct 33.4 L (37.2-46.3) % MCV 100.6 H (80.0-97.0) fL MCHC 30.2 L (32.0-37.0) g/dL Immature Gran # 0.11 H (0.00-0.04) X 10*3/uL Neutrophils # 9.17 H (1.80-7.70) X 10*3/uL Monocytes # 1.10 H (0.20-1.00) X 10*3/uL Chloride 112 H (96-109) mmol/L Est GFR (CKD-EPI)AfAm 46.4 L (60.0-200.0) Est GFR (CKD-EPI)NonAf 40.0 L (60.0-200.0) POC Glucose (mg/dL) 63 L (75-99) mg/dL Calcium 8.6 L (8.7-10.3) mg/dL 01/15/21 Range/Units 12:09 WBC (4.50-10.00) X 10*3/uL RBC (4.10-5.20) X 10*6/uL Hgb (12.0-15.0) g/dL Hct (37.2-46.3) % MCV (80.0-97.0) fL MCHC (32.0-37.0) g/dL Immature Gran # (0.00-0.04) X 10*3/uL Neutrophils # (1.80-7.70) X 10*3/uL Monocytes # (0.20-1.00) X 10*3/uL Chloride (96-109) mmol/L Est GFR (CKD-EPI)AfAm (60.0-200.0) Est GFR (CKD-EPI)NonAf (60.0-200.0) POC Glucose (mg/dL) 70 L (75-99) mg/dL Calcium (8.7-10.3) mg/dL
[2021-01-16 20:36] LABS: Glucose,Whole Blood 113 mg/dL (75-99)
[2021-01-16] MEDS: INSULIN DETEMIR (LEVEMIR) 100 UNIT/ML SYR SQ SCH (20:37)
[2021-01-16] MEDS: DOCUSATE 100 MG CAP PO SCH (21:56)
[2021-01-16] MEDS: ATORVASTATIN 80 MG TAB PO SCH (21:56)
[2021-01-17] MEDS: hydrALAZINE HCL 20 MG/ML 1 ML VIAL IVP PRN (05:32)
[2021-01-17 07:11] LABS: Glucose,Whole Blood 104 mg/dL (75-99)
[2021-01-17] MEDS: FERROUS SULFATE 325 MG TAB PO SCH (07:38)
[2021-01-17] MEDS: LINAGLIPTIN 5 MG TABLET PO SCH (07:38)
[2021-01-17] MEDS: lisinopriL 20 MG TAB PO SCH (07:38)
[2021-01-17] MEDS: VIT A,C & E-LUTEIN-MINERALS 1 EACH TAB PO SCH (07:38)
[2021-01-17] MEDS: METOPROLOL TARTRATE 50 MG TAB PO SCH (07:38)
[2021-01-17] MEDS: amLODIPine 5 MG TAB PO SCH (07:40)
[2021-01-17] MEDS: AMOXIC-POT CLAV 200-28.5MG/5ML 100 ML BOTTLE PO SCH (07:41)
[2021-01-17] MEDS: PANTOPRAZOLE 40 MG/10 ML VIAL IVP SCH (07:41)
[2021-01-17] MEDS: SODIUM CHLORIDE 0.9% 1,000 ML IV SCH (07:45)
[2021-01-17] MEDS: DICLOFENAC 0.1% OPHTH SOLN 2.5 ML BTL BOTH EYES SCH (07:45)
[2021-01-17 09:56] VITALS: BP 166/55; PULSE 66; RESP 17; TEMP 99
[2021-01-17 10:00] LABS: Basophils # (A) 0.03 X 10*3/uL (0.00-0.10); Basophils % (A) 0.4 %; Eosinophils # (A) 0.28 X 10*3/uL (0.04-0.35); Eosinophils % (A) 3.3 %; HCT 33.6 % (37.2-46.3); HGB 10.2 g/dL (12.0-15.0); Lymphocytes # (A) 0.95 X 10*3/uL (0.90-5.00); Lymphocytes % (A) 11.3 %; MCHC 30.4 g/dL (32.0-37.0); MCV 98.8 fL (80.0-97.0); Mean Platelet Volume 10.7 fL (9.5-12.2); Monocytes # (A) 0.87 X 10*3/uL (0.20-1.00); Monocytes % (A) 10.4 %; Neutrophils # (A) 6.09 X 10*3/uL (1.80-7.70); Neutrophils % (A) 72.6 %; Platelet Count 295 X 10*3/uL (140-440); RDW 14.2 % (11.5-14.5); WBC 8.39 X 10*3/uL (4.50-10.00)
[2021-01-17 10:06] LABS: African American GFR (CKD) 57.8 (60.0-200.0); Albumin 3.2 g/dL (3.80-4.90); Albumin/Globulin Ratio 1.78 (1.60-3.17); Anion Gap 9.6 mmol/L (4.00-12.00); Calcium 8.1 mg/dL (8.7-10.3); Carbon Dioxide 21.4 mmol/L (21.6-31.8); Globulin 1.8 g/dL (1.6-3.3); Non-African American GFR(CKD) 49.9 (60.0-200.0); Potassium 4.3 mmol/L (3.5-5.5); Total Bilirubin 1.1 mg/dL (0.2-1.2)
--- NOTE | 2021-01-17 12:28 | P.DS ---
Providers Date of admission: 01/16/21 16:49 Expected date of discharge: 01/17/21 Attending physician: Marilyn Nash Consults: 01/14/21 13:57 Consult Physician Urgent Consulting Provider: Moses Hackett Consult Reason/Comments: lower gi hemorrhage Do you want consulting provider notified?: Yes Primary care physician: Marilyn Nash Hospital Course: HISTORY OF PRESENT ILLNESS This is an 89-year-old female patient with past medical history of coronary artery disease status post three-vessel CABG with FRIEDMAN to LAD and SVG to RCA back in 1995, carotid artery disease status post carotid endarterectomy in 2015, diabetes mellitus type 2, paroxysmal atrial fibrillation chronically on Xarelto, hypertension, hyperlipidemia, chronic vertigo 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 the patient presented to the emergency center at [facility] after she was recently diagnosed and treated for right index finger cellulitis due to cat bite, she was doing fine at home up until today when her daughter called and stated that her mother developed to have a significant rectal bleeding with increased blood clots she was advised to stop the Xarelto under come to the ER for evaluation to check her hemoglobin as well, patient hemoglobin was stable at that time, she was taken off Xarelto, patient was not able to swallow her Augmentin, patient ended up going to the emergency department for evaluation she was admitted for evaluation by gastroenterology . 01/16: Patient is complaining of increased pain in the right eye as well as the left eye, she will be started back on diclofenac 0.1% drops 1 drop in both eyes twice every day, patient has not had any bleeding episodes, she did have a good bowel movement that was normal, she has no chest pain or shortness breath, her cellulitis of the right hand is much better, she was seen in consultation by gastroenterology and no plan for any endoscopy at this point in time, patient most likely will be discharged home tomorrow morning if her hemoglobin is stable. 01/17: Patient has been afebrile, heart rate 70s, blood pressure this morning 196/62, pulse ox 92% on room air. Repeat blood work reveals WBC 8.3, hemoglobin 10.2, platelet count 295. Sodium 144, potassium 4.3, chloride 113, CO2 21, BUN 11 and creatinine 1. Blood sugar 102. Calcium 8.1. Patient is currently tolerating a full liquid diet and she has been cleared for discharge by GI. Patient will be discharged home today in stable condition. ASSESSMENT AND PLAN 1. GI Bleed of unclear etiology possibly upper GI bleed due to PUD VS AVM in in her cecum. 2. Cellulitis of the right index finger secondary to cat bite. 3. Acute kidney injury. Resolved. 4. Paroxysmal atrial fibrillation. 5. History of coronary artery disease status post three-vessel CABG in 1995. 6. Carotid artery disease status post carotid endarterectomy. 7. Diabetes mellitus type 2. 8. Hypertension, hypertensive cardiovascular disease. 9. Hyperlipidemia. 10. Chronic vertigo. Stable. 11. Gastroesophageal reflux disease. DISCHARGE PLAN Home. Impression and plan of care have been directed as dictated by the signing physician. Nataliia Alejo nurse practitioner acting as scribe for signing physician. Patient Condition at Discharge: Good Plan - Discharge Summary Discharge Rx Participant: Yes New Discharge Prescriptions: New Amoxic-Pot Clav 200-28.5MG/5Ml [Augmentin 200-28.5 mg/5 ml Susp] 22 ml PO Q12HR #308 ml Diclofenac 0.1% Ophth Soln [Voltaren 0.1% Ophth Soln] 1 drops BOTH EYES TID ml Continue Insulin Detemir [Levemir Flextouch] 14 units SQ HS@2200 Metoprolol Tartrate [Lopressor] 50 mg PO BID Linagliptin [Tradjenta] 5 mg PO DAILY@1000 Ferrous Sulfate [Iron (65 MG Elemental)] 325 mg PO BID Vit C/E/Zn/Coppr/Lutein/Zeaxan [Preservision Areds 2 Softgel] 1 cap PO BID ALPRAZolam [Xanax] 0.5 mg PO BID PRN PRN Reason: Anxiety lisinopriL 20 mg PO BID Cranberry Fruit Extract [Cranberry] 1,000 mg PO DAILY Atorvastatin [Lipitor] 80 mg PO HS@2200 amLODIPine [Norvasc] 5 mg PO DAILY #30 tab Rivaroxaban [Xarelto] 15 mg PO HS #0 Furosemide [Lasix] 40 mg PO DAILY PRN PRN Reason: Edema Docusate [Colace] 100 mg PO HS Changed Pantoprazole [Protonix] 40 mg PO BID #60 tab Discontinued Amoxic-Pot Clav 875-125Mg [Augmentin 875-125] 1 tab PO Q12HR Discharge Medication List Insulin Detemir [Levemir Flextouch] 14 units SQ HS@2200 03/02/20 [History] Linagliptin [Tradjenta] 5 mg PO DAILY@1000 04/08/20 [History] Metoprolol Tartrate [Lopressor] 50 mg PO BID 04/08/20 [History] Ferrous Sulfate [Iron (65 MG Elemental)] 325 mg PO BID 05/23/20 [History] Vit C/E/Zn/Coppr/Lutein/Zeaxan [Preservision Areds 2 Softgel] 1 cap PO BID 05/23/20 [History] ALPRAZolam [Xanax] 0.5 mg PO BID PRN 06/21/20 [History] Atorvastatin [Lipitor] 80 mg PO HS@2200 08/26/20 [History] Cranberry Fruit Extract [Cranberry] 1,000 mg PO DAILY 08/26/20 [History] lisinopriL 20 mg PO BID 08/26/20 [History] Docusate [Colace] 100 mg PO HS 01/09/21 [History] Furosemide [Lasix] 40 mg PO DAILY PRN 01/09/21 [History] amLODIPine [Norvasc] 5 mg PO DAILY #30 tab 01/12/21 [Rx] Amoxic-Pot Clav 200-28.5MG/5Ml [Augmentin 200-28.5 mg/5 ml Susp] 22 ml PO Q12HR #308 ml 01/17/21 [Rx] Diclofenac 0.1% Ophth Soln [Voltaren 0.1% Ophth Soln] 1 drops BOTH EYES TID ml 01/17/21 [Rx] Pantoprazole [Protonix] 40 mg PO BID #60 tab 01/17/21 [Rx] Rivaroxaban [Xarelto] 15 mg PO HS #0 01/17/21 [Rx] Follow up Appointment(s)/Referral(s): Marilyn Nash MD [Primary Care Provider] - 01/24/21 12:15 pm Moses Hackett MD [STAFF PHYSICIAN] - As Needed Patient Instructions/Handouts: Amoxicillin/Clavulanate Potassium (By mouth), Pantoprazole (By mouth), Coronavirus Disease 2019 (COVID-19), A-fib (Atrial Fibrillation) (DC), Gastrointestinal Bleeding (DC) Activity/Diet/Wound Care/Special Instructions: Hold Xarelto for one week. Resume on 01/24. Discharge Disposition: HOME SELF-CARE
--- NOTE | 2021-01-19 10:05 | CDI ---
Documentation Clarification Form Date: 01/19/21 From: Olga Ness Phone: Admit Date: 01/16/2021 04:49:00 PM Patient Name: Johanne Potter Visit Number: [id number] Discharge Date: 01/17/2021 11:29:00 AM ATTENTION: The Clinical Documentation Specialists (CDI) and [facility] Coding Staff appreciate your assistance in clarifying documentation. Please respond to the clarification below the line at the bottom and electronically sign. The CDI & [facility] Coding staff will review the response and follow-up if needed. Please note: Queries are made part of the Legal Health Record. If you have any questions, please contact the author of this message via ITS. Dr. Marilyn Nash, The COVID-19 test done prior to admission on 01/09/21 reported as Positive. History/risk factors: melena, chronic a fib, AMARIS, DM, CKD stage 2, HTN, Clinical Indicators: No fever, chills or SOB. Rectal bleeding and on Xarelto. Treatment: Hold Xarelto, no respiratory Rx, No Remdesivir, Acterma or Azithromycin Please clarify the COVID-19 status: [ ] History of COVID-19 infection [ ] Current COVID-19 infection, causing GI bleed [ ] Current COVID-19 infection, not under treatment [ } COVID-19 ruled out [ ] Other, please specify History of COVID-19 infection MTDD
== END 2021-01-17 11:29 | disposition home or self-care (01) | DRG 378 ==
LOC: EC 11:30 → 4SSUR 13:57 → OBSVTOIN 01-16 16:49
PROVIDERS: ADMIT Internal Medicine; ATTEND Internal Medicine
DX: K92.1 Melena (principal); I48.20 Chronic atrial fibrillation, unspecified; N17.9 Acute kidney failure, unspecified; I13.0 Hypertensive heart and chronic kidney disease with heart failure and stage 1 through stage 4 chronic kidney disease, or unspecified chronic kidney disease; K22.2 Esophageal obstruction; E11.22 Type 2 diabetes mellitus with diabetic chronic kidney disease; E11.51 Type 2 diabetes mellitus with diabetic peripheral angiopathy without gangrene; I50.9 Heart failure, unspecified; Z79.4 Long term (current) use of insulin; K55.20 Angiodysplasia of colon without hemorrhage; E78.5 Hyperlipidemia, unspecified; L03.011 Cellulitis of right finger; I25.10 Atherosclerotic heart disease of native coronary artery without angina pectoris; N18.2 Chronic kidney disease, stage 2 (mild); K21.9 Gastro-esophageal reflux disease without esophagitis; H57.12 Ocular pain, left eye; H47.012 Ischemic optic neuropathy, left eye; H57.11 Ocular pain, right eye; H35.30 Unspecified macular degeneration; K57.90 Diverticulosis of intestine, part unspecified, without perforation or abscess without bleeding; I25.2 Old myocardial infarction; I08.0 Rheumatic disorders of both mitral and aortic valves; R26.9 Unspecified abnormalities of gait and mobility; H54.7 Unspecified visual loss; Z79.01 Long term (current) use of anticoagulants; Z79.899 Other long term (current) drug therapy; Z86.16 Personal history of COVID-19; Z87.891 Personal history of nicotine dependence; Z86.73 Personal history of transient ischemic attack (TIA), and cerebral infarction without residual deficits; Z95.1 Presence of aortocoronary bypass graft; Z86.79 Personal history of other diseases of the circulatory system; Z91.81 History of falling; Z87.81 Personal history of (healed) traumatic fracture; Z90.89 Acquired absence of other organs; Z86.2 Personal history of diseases of the blood and blood-forming organs and certain disorders involving the immune mechanism; Z98.890 Other specified postprocedural states; W55.01XA Bitten by cat, initial encounter; Z88.8 Allergy status to other drugs, medicaments and biological substances; Z80.8 Family history of malignant neoplasm of other organs or systems; Z80.9 Family history of malignant neoplasm, unspecified
CPT/HCPCS: 36415; 80048; 80053; 82272; 85025; 85610; 85730; 99285

== ENCOUNTER 2021-05-25 11:02 | Emergency (ER) | payer MEDICARE, BC ==
[2021-05-25 11:15] VITALS: BP 159/55; PULSE 57; RESP 18; TEMP 98.1
--- NOTE | 2021-05-25 12:09 | ED ---
General Adult HPI - General Chief complaint: Extremity Injury, Lower Stated complaint: L Ankle Pain Time Seen by Provider: 05/25/21 11:30 Source: patient Mode of arrival: wheelchair Limitations: physical limitation - History of Present Illness Initial comments: 89-year-old female with a complicated past medical history presents to the emergency room for a chief complaint of left great toe pain. Patient has had left great toe pain times months. States it has been worse for the past 2 months or so. Patient did see a custom shop worker who told her to get diabetic shoes however patient states they did not fit well so she did not wear them. Patient states that she was told by the dye go to the ER if anything worsen. States that last night the pain went up her leg a little bit but has since resolved. However she wanted to have it evaluated.Patient has no other complaints at this time including shortness of breath, chest pain, abdominal pain, nausea or vomiting, headache, or visual changes. - Related Data Home Medications Medication Instructions Recorded Confirmed Insulin Detemir [Levemir Flextouch 14 units SQ HS@2200 03/02/20 01/14/21 Pen] Linagliptin [Tradjenta] 5 mg PO DAILY@1000 04/08/20 01/14/21 Metoprolol Tartrate [Lopressor] 50 mg PO BID 04/08/20 01/14/21 Ferrous Sulfate [Iron (65 MG 325 mg PO BID 05/23/20 01/14/21 Elemental)] Vit C/E/Zn/Coppr/Lutein/Zeaxan 1 cap PO BID 05/23/20 01/14/21 [Preservision Areds 2 Softgel] ALPRAZolam [Xanax] 0.5 mg PO BID PRN 06/21/20 01/14/21 Atorvastatin [Lipitor] 80 mg PO HS@2200 08/26/20 01/14/21 Cranberry Fruit Extract [Cranberry] 1,000 mg PO DAILY 08/26/20 01/14/21 lisinopriL 20 mg PO BID 08/26/20 01/14/21 Docusate [Colace] 100 mg PO HS 01/09/21 01/14/21 Furosemide [Lasix] 40 mg PO DAILY PRN 01/09/21 01/14/21 Previous Rx's Medication Instructions Recorded amLODIPine [Norvasc] 5 mg PO DAILY #30 tab 01/12/21 Amoxic-Pot Clav 200-28.5MG/5Ml 22 ml PO Q12HR #308 ml 01/17/21 [Augmentin 200-28.5 mg/5 ml Susp] Diclofenac 0.1% Ophth Soln 1 drops BOTH EYES TID ml 01/17/21 [Voltaren 0.1% Ophth Soln] Pantoprazole [Protonix] 40 mg PO BID #60 tab 01/17/21 Rivaroxaban [Xarelto] 15 mg PO HS #0 01/17/21 Allergies Allergy/AdvReac Type Severity Reaction Status Date / Time zolpidem [From Ambien] AdvReac Hallucinati Verified 05/25/21 11:15 ons Review of Systems ROS Statement: Those systems with pertinent positive or pertinent negative responses have been documented in the HPI. ROS Other: All systems not noted in ROS Statement are negative. Past Medical History Past Medical History: Atrial Fibrillation, Coronary Artery Disease (CAD), Chest Pain / Angina, Heart Failure, CVA/TIA, Diabetes Mellitus, Eye Disorder, GERD/Reflux, Hyperlipidemia, Hypertension, Myocardial Infarction (MD), Renal Disease, Syncope, Vascular Disorder Additional Past Medical History / Comment(s): L eye pain/optic ischemic neurop athy/TIA, EF 35% with mild aortic stenosis/mild mitral regurg. Other hx: IDDM type II, CKD stage II, TIAs, vertigo, weakness, gait disturbance/falls, bilateral hip and gluteal pain, paroxysmal A fib, anemia, L caratid disease 70%, hx of AVM of the cecum with cox plasma, anemia, macular degeneration bilaterally, L eye pain/optic ischemia, poor vision Last Myocardial Infarction Date:: 2017 History of Any Multi-Drug Resistant Organisms: None Reported Past Surgical History: Adenoidectomy, Coronary Bypass/CABG, Heart C atheterization, Orthopedic Surgery, Tonsillectomy Additional Past Surgical History / Comment(s): EGD, colonoscopies, 3 vessel CABG 1995 in [place], R carotid endartectomy 2015, ORIF L ankle d/t fracture. Past Anesthesia/Blood Transfusion Reactions: No Reported Reaction Past Psychological History: No Psychological Hx Reported Smoking Status: Former smoker Past Alcohol Use History: None Reported Past Drug Use History: None Reported - Past Family History Mother Family Medical History: No Reported History Additional Family Medical History / Comment(s): Mother at age 82 from old age. Father Family Medical History: No Reported History Additional Family Medical History / Comment(s): Father from old age and patient does not recall his age or any medical problems. General Exam Limitations: physical limitation General appearance: alert, in no apparent distress Head exam: Present: atraumatic Eye exam: Present: normal appearance, PERRL, EOMI. Absent: scleral icterus ENT exam: Present: normal exam, mucous membranes moist Neck exam: Present: normal inspection, full ROM. Absent: tenderness Respiratory exam: Present: normal lung sounds bilaterally. Absent: respiratory distress, wheezes Cardiovascular Exam: Present: regular rate, normal rhythm, normal heart sounds Extremities exam: Present: full ROM (full range motion of the left lower extremity), normal capillary refill (Fadi refill less than 2 seconds in all digits of the left foot. DP and PT Doppler signal strong). Absent: tenderness (no Tenderness of the left great toe.), joint swelling, calf tenderness (no Calf tenderness or swelling), other (No skin changes of the left great toe.) Course Vital Signs 05/25/21 11:13 Temperature 98.1 F Pulse Rate 57 L Respiratory 18 Rate Blood Pressure 159/55 O2 Sat by Pulse 99 Oximetry Medical Decision Making - Medical Decision Making Vitals are stable. HPI and physical exam as documented. Patient has pain of the left great toe. Capillary refill is less than 2 seconds. Doppler signals are evident in the left foot. Neurovascular status intact. Full range of motion. There are no skin changes of the toe. No wounds. Pain is chronic in nature. I did offer x-ray however she does not feel this is necessary and would prefer to see her doctor. At this time patient condition is to follow up with primary care. She'll return for any worsening symptoms. I discussed this case with attending Dr. Stinson who agrees with this assessment and treatment plan. Disposition Clinical Impression: Toe pain, left Disposition: HOME SELF-CARE Condition: Good Instructions (If sedation given, give patient instructions): Leg Pain (ED) Additional Instructions: Please follow-up with your doctor in one to 2 days. Return to the emergency room for any worsening symptoms. Is patient prescribed a controlled substance at d/c from ED?: No Referrals: Marilyn Nash MD [Primary Care Provider] - 1-2 days Time of Disposition: 12:08
== END 2021-05-25 12:36 | disposition home or self-care (01) ==
LOC: EC 11:02
DX: M79.675 Pain in left toe(s) (principal); I13.0 Hypertensive heart and chronic kidney disease with heart failure and stage 1 through stage 4 chronic kidney disease, or unspecified chronic kidney disease; E11.22 Type 2 diabetes mellitus with diabetic chronic kidney disease; I50.9 Heart failure, unspecified; N18.2 Chronic kidney disease, stage 2 (mild); E78.5 Hyperlipidemia, unspecified; I25.2 Old myocardial infarction; I48.0 Paroxysmal atrial fibrillation; Z88.8 Allergy status to other drugs, medicaments and biological substances; Z79.4 Long term (current) use of insulin; Z87.891 Personal history of nicotine dependence; Z79.899 Other long term (current) drug therapy; X58.XXXA Exposure to other specified factors, initial encounter
CPT/HCPCS: 99283